=== PATIENT | female | born 1950 | race Caucasian/White ===

== ENCOUNTER → 2017-06-11 08:55 | Outpatient (CLI) | payer MEDICARE, SELFPAY | PROVIDERS: Visit Provider Family Medicine Geriatric Medicine | DX: I10 Essential (primary) hypertension (principal); E55.9 Vitamin D deficiency, unspecified ==

== ENCOUNTER → 2019-02-15 09:41 | Outpatient (CLI) | payer MEDICARE, SELFPAY ==
--- NOTE | 2019-02-15 09:55 | RAD_ITS ---
STUDY: X-RAY - LEFT KNEE REASON FOR EXAM: Chronic knee pain. TECHNIQUE: 4 view(s) of the knee. COMPARISON: None. FINDINGS: Normal visualized distal femur. Normal visualized proximal tibia and fibula. Normal proximal tibiofibular articulation. Normal medial femorotibial compartment. Normal lateral femorotibial compartment. Normal patellofemoral articulation. There is vascular calcification. RAD/Knee 4 or More Views IMPRESSION: Vascular calcification. Otherwise, unremarkable x-ray examination of the left knee. Electronically Signed: Bahman Gupta MD at 15:50 EST Tel , Service support ,
== END ==
PROVIDERS: Family Provider Family Medicine Geriatric Medicine; PCP Family Medicine Geriatric Medicine; Referring Provider Family Medicine Geriatric Medicine; Visit Provider Family Medicine Geriatric Medicine
DX: M25.562 Pain in left knee (principal); G89.29 Other chronic pain; N39.0 Urinary tract infection, site not specified
CPT/HCPCS: 73564; 87086; 87088

== ENCOUNTER → 2019-02-20 15:42 | Outpatient (CLI) | payer MEDICARE, SELFPAY ==
--- NOTE | 2019-02-20 15:43 | RAD_ITS ---
STUDY: X-RAY - RIGHT WRIST REASON FOR EXAM: Female, 68 years old. Pain. Fall TECHNIQUE: 3 view(s) of the wrist were obtained. COMPARISON: None. FINDINGS: Normal visualized distal radius and ulna. Normal radiocarpal articulation. Normal distal radioulnar articulation. There is density at the posterior aspect on the lateral projection consistent with nondisplaced fracture of the triquetrum. Normal carpal articulations. Normal carpometacarpal articulation of the thumb. Normal second through fifth carpometacarpal articulations. Normal visualized metacarpal bones. The soft tissue structures are unremarkable. RAD/Wrist min 3 Views IMPRESSION: Nondisplaced fracture of the triquetrum. Electronically Signed: Jer Michele MD at 16:23 EST , Service support ,
--- NOTE | 2019-02-20 15:43 | RAD_ITS ---
STUDY: X-RAY - RIGHT HAND REASON FOR EXAM: Female, 68 years old. Pain. Fall. TECHNIQUE: 3 view(s) of the hand. COMPARISON: None. FINDINGS: Normal radiocarpal articulation. Normal distal radioulnar joint. There is density at the posterior aspect on the lateral projection consistent with nondisplaced fracture of the triquetrum. Normal carpal articulations Normal carpometacarpal articulation of the thumb. Normal second through fifth carpometacarpal joints. Normal metacarpi. Normal metacarpophalangeal joint of the thumb. Normal interphalangeal joint of the thumb. Normal proximal and distal phalanges of the thumb. Normal metacarpophalangeal joints of the second through fifth fingers. There is mild degenerative change of the interphalangeal joints. There is a 0.7 x 0.3 cm focal lucency of the cortex and partial destruction of the second proximal phalanx on the frontal projection. The soft tissue structures are unremarkable. RAD/Hand Min 3 Views IMPRESSION: Density consistent with nondisplaced fracture of the triquetrum. Partial cortical destruction of the second proximal phalanx of uncertain significance. Electronically Signed: Jer Michele MD at 16:22 EST , Service support ,
== END ==
PROVIDERS: Family Provider Family Medicine Geriatric Medicine; PCP Family Medicine Geriatric Medicine; Referring Provider Physician Assistant; Visit Provider Physician Assistant
DX: S62.114A Nondisplaced fracture of triquetrum [cuneiform] bone, right wrist, initial encounter for closed fracture (principal); X58.XXXA Exposure to other specified factors, initial encounter; Y93.9 Activity, unspecified; Y92.9 Unspecified place or not applicable; Y99.9 Unspecified external cause status
CPT/HCPCS: 73110; 73130

== ENCOUNTER → 2019-03-27 08:38 | Outpatient (CLI) | payer OTHER, MEDICARE, SELFPAY ==
[2019-02-24 08:30] VITALS: BMI 28.4
--- NOTE | 2019-03-27 08:39 | RAD_ITS ---
HISTORY: FOLLOW UP TO PREVIOUS VISITS COMPARISON: None FINDINGS: # of images incl. paperwork: 3 XR Wrist Min 3 Views : Hyperostosis on the dorsal aspect of the triquetrum in the region where the fracture was previously is suggestive of healing. Bone mineral density may be diminished. Bony alignment is normal. No acute fractures are perceived. A phlebolith within the lateral wrist is unchanged. RAD/Wrist min 3 Views IMPRESSION: Healing versus healed triquetral fracture at [id number] Reported and signed by: Rogelio Shepherd MD Electronically Signed: Rogelio Shepherd MD at 23:36 EST Tel , Service support ,
== END ==
PROVIDERS: Family Provider Family Medicine Geriatric Medicine; PCP Family Medicine Geriatric Medicine; Referring Provider Orthopaedic Surgery; Visit Provider Orthopaedic Surgery
DX: S62.111A Displaced fracture of triquetrum [cuneiform] bone, right wrist, initial encounter for closed fracture (principal); X58.XXXA Exposure to other specified factors, initial encounter; Y93.9 Activity, unspecified; Y92.9 Unspecified place or not applicable; Y99.9 Unspecified external cause status
CPT/HCPCS: 73110

== ENCOUNTER 2019-06-22 14:42 | Outpatient (RCR) | payer MEDICARE, SELFPAY ==
[2019-03-27 08:51] VITALS: BMI 28.4
--- NOTE | 2019-11-15 13:52 | HP.PT.NRP ---
OSMIN DAN was seen in my office for initial evaluation on 06/22/19. The following Plan of Care was established for this patient: Initial Frequency: 2x /Week Initial Duration: 4 Weeks Patient/Client Instruction: Educate patient on: Condition, Plan of Care For the Purpose of:: To improve self management Therapeutic Exercise to Include: Strength training, Endurance training, Balance training, Postural training, Flexibilty training, Dynamic Lumbar Stabilization For the Purpose of:: To decrease pain, To improve muscle performance and motor function Cryotherapy (ice pack, ice massage): Yes For the Purpose of:: To decrease pain This patient was last seen in our office . Pertinent comments regarding their Physical therapy will appear below: Pt was evaluated on 06/22/19 for L knee pain. Pt has not returned through todays date and is therefore discontinued at this time. At this point I will be discontinuing this patient from physical therapy. I would be happy to see this patient again in the future if found appropriate by the physician. Thank you! Aureliano Jackson, PT, ATC
--- NOTE | 2019-11-15 13:52 | HP.PTEVAL ---
Patient's Visit Information OSMIN DAN is a 68 year old F referred to Physical Therapy by Dr. Walter Emanuel MD with a diagnosis of L knee OA. Date of Evaluation: 06/22/19 Physical Therapist: Aureliano Jackson, PT, ATC - Visit Plan Frequency: 2x /Week Duration: 4 Weeks Plan: L LE strengthening, core strengthening, bike, and HEP - Subjective Pt reports her L knee has been sore for over a year. Pt notes she has had xrays which revealed osteoarthritis. Pt reports she had a cortisone injection 2 days ago, which did help a very little bit. Pt reports the pain is not as bad today, but the pain is still there. Pt reports sleep difficulty secondary to pain. Pt pain is constant in nature. Pt reports stair negotiation is very difficult at this time. Pt also notes she is limited with ambulation at this time secondary to pain. Pt reports she has a stationary bike that helps to decrease her pain. No tingling or numbness in L LE at this time. 7/10 at rest, 10/10 pain at worst (stair negotiation prior to injection) - Pain L knee OA Pain Intensity (Out of 10): 7 Pain Intensity Range: 10 - Objective Neuro: B LE sensation is WNL to light touch. B achilles reflex= 2/3. Girth at joint line: L knee 36 cm, R knee 34 cm. MMT: R knee 5/5 throughout while L knee 4-/5 and painful. ROM: R knee 0-135 degrees, L knee 0-125 degrees. Special tests: Positive apley compression test. Gait: Pt is able to ambulate approximately 200 feet until needing to sit down secondary to pain - Goals Goal 1:: Decrease L knee pain x 50% to aid with sleep Goal Time Frame: 2-4 Weeks Goal 2:: Increase L knee strength x 1 garde to aid with stair negotiation Goal Time Frame: 2-4 Weeks Goal 3:: I with HEP Goal Time Frame: 2-4 Weeks - Rehabilitation Potential Physical Therapy Diagnosis: Pt has L knee pain, weakness, and limited ROM secondary to L knee OA Rehabilitation Potential: Good - Anticipated Interventions Patient/Client Instruction: Educate patient on: Condition, Plan of Care For the Purpose of:: To improve self management Therapeutic Exercise to Include: Strength training, Endurance training, Balance training, Postural training, Flexibilty training, Dynamic Lumbar Stabilization For the Purpose of:: To decrease pain, To improve muscle performance and motor function Cryotherapy (ice pack, ice massage): Yes For the Purpose of:: To decrease pain Thank you for the opportunity to evaluate your patient. For Medicare and Medicare HMO plans, please review the plan of care and approve it. It will need to be FAXED BACK to us at [phone] for Medicare purposes. For Medicare only, by signing this I certify the plan of care. Please let me know if there are questions or concerns regarding this plan of care. Physician Signature: Date:
== END 2019-06-22 19:00 | disposition home or self-care (01) ==
LOC: PT 14:42
PROVIDERS: PCP Family Medicine Geriatric Medicine; Referring Provider Family Medicine Geriatric Medicine; Visit Provider Family Medicine Geriatric Medicine
DX: M17.9 Osteoarthritis of knee, unspecified (principal)
CPT/HCPCS: 97161

== ENCOUNTER → 2019-10-05 10:56 | Outpatient (CLI) | payer MEDICARE, SELFPAY ==
[2019-03-27 08:51] VITALS: BMI 28.4
--- NOTE | 2019-10-05 11:06 | RAD_ITS ---
STUDY: X-RAY - LEFT FOOT CLINICAL: Female, 68 years old. REDNESS AND SWELLING TO 1ST DIGIT x2 DAYS, NKI -- GOUT TECHNIQUE: 2 view(s) of the foot. COMPARISON: None. FINDINGS: Normal talus and tarsal bones. Calcaneal spurs. Normal visualized subtalar, talonavicular, calcaneocuboid, tarsal and tarsometatarsal articulations. Normal metatarsi. Lateral film shows dislocation of the second MTP joint with dorsal displacement of the phalanges relative to the distal second metatarsal. There is degenerative arthrosis of the metatarsophalangeal joint of the hallux with a hallux valgus deformity. Normal tibial and fibular sesamoid bones. Normal interphalangeal joint of the great toe. Normal phalanges of the great toe. Normal second through fifth metatarsophalangeal joints. Normal remaining interphalangeal joints and phalanges of the lesser toes. The soft tissue structures are unremarkable. RAD/Foot 2 Views IMPRESSION: There is dorsal dislocation of the phalanges of the second toe relative to the second metatarsal head with approximately 5 mm of overlap. Hallux valgus deformity of the first MTP joint Calcaneal spurs Electronically Signed: William Wright MD at 11:24 EDT , Service support ,
[2019-10-05 12:39] LABS: Erythrocyte Sedimentation Rate 65 mm/hr (0-30)
[2019-10-05 12:41] LABS: Absolute Lymphocyte Count 1.76 X10^3/uL (0.83-4.51); Absolute Neutrophil Count 7.1 X10^3/uL (2.0-7.7); Basophil# 0.08 X10^3/uL; Basophil% 0.8 % (0-1); Eosinophil# 0.18 X10^3/uL; Eosinophils% 1.7 % (0-5); Hematocrit 40.1 % (37-47); Lymphocyte # 1.76 X10^3/ul (4.0); Mean Corp Hgb Conc 32.4 g/dL (32-36); Mean Corpuscular Hgb 30.7 pg (27.0-32.0); Mean Corpuscular Volume 94.8 fL (81-99); Mean Platelet Vol. 9.8 fl (6.2-12.0); Monocyte# 1.08 X10^3/uL; Monocyte% 10.4 % (0-10); NRBC Flagged by Analyzer 0 % (0-5); Neutrophil # 7.08 X10^3/uL (2.7-7.7); Neutrophil % 68.4 % (47-70); Platelet Count 372 K/mm3 (150-450); RBC Distribution Width CV 12.5 % (11.6-14.6); RBC Distribution Width SD 43.1 fl (35.1-43.9); Red Blood Count 4.23 M/mm3 (4.2-5.4); White Blood Count 10.4 K/mm3 (4.4-11.0)
[2019-10-05 12:45] LABS: Anion Gap 5 (5-15); BUN 16 mg/dL (7-18); BUN/Creat Ratio 19.3 RATIO (10-20); Calcium,Total 9.6 mg/dL (8.5-10.1); Chloride 102 mmol/L (98-107); Creatinine, Serum 0.83 mg/dL (0.55-1.02); EST Glomerular Filtration Rate 73 mL/min (>60); Est Glom Filt Rate - Afr Amer 88 mL/min (>60); Glucose 97 mg/dL (74-106); Sodium Level 136 mmol/L (136-145); Uric Acid 7.5 mg/dL (2.6-6.0)
== END ==
LOC: POLAB3 10:56 → RAD 11:05
PROVIDERS: PCP Family Medicine Geriatric Medicine; Referring Provider Family Medicine Geriatric Medicine; Visit Provider Family Medicine Geriatric Medicine
DX: R60.9 Edema, unspecified (principal); R79.9 Abnormal finding of blood chemistry, unspecified
CPT/HCPCS: 36415; 73620; 80048; 84550; 85025; 85652; 86140

== ENCOUNTER → 2019-12-28 10:50 | Outpatient (CLI) | payer MEDICARE, SELFPAY ==
[2019-03-27 08:51] VITALS: BMI 28.4
[2019-12-28 12:42] LABS: Absolute Lymphocyte Count 1.41 X10^3/uL (0.83-4.51); Absolute Neutrophil Count 7.7 X10^3/uL (2.0-7.7); Basophil# 0.06 X10^3/uL; Basophil% 0.6 % (0-1); Hematocrit 40.6 % (37-47); Hemoglobin 12.8 g/dL (12.0-15.0); Lymphocyte # 1.41 X10^3/ul (4.0); Lymphocyte % 13.6 % (19-41); Mean Corp Hgb Conc 31.5 g/dL (32-36); Mean Corpuscular Hgb 30.2 pg (27.0-32.0); Mean Corpuscular Volume 95.8 fL (81-99); Mean Platelet Vol. 9.8 fl (6.2-12.0); Monocyte# 0.79 X10^3/uL; Monocyte% 7.6 % (0-10); NRBC Flagged by Analyzer 0 % (0-5); Neutrophil # 7.71 X10^3/uL (2.7-7.7); Neutrophil % 74.7 % (47-70); Platelet Count 345 K/mm3 (150-450); RBC Distribution Width CV 13.3 % (11.6-14.6); RBC Distribution Width SD 47.3 fl (35.1-43.9); Red Blood Count 4.24 M/mm3 (4.2-5.4); White Blood Count 10.3 K/mm3 (4.4-11.0)
[2019-12-28 12:47] LABS: Vitamin D,25 Hydroxy 20.5 ng/mL
[2019-12-28 13:02] LABS: ALB/GLOB Ratio 0.9 RATIO (0.9-2.4); AST(SGOT) 24 U/L (15-37); Alanine Aminotransfer ALT/SGPT 44 U/L (13-56); Albumin, Serum 3.5 g/dL (3.2-5.0); Alkaline Phosphatase 122 U/L (45-117); Anion Gap 8 (5-15); BUN 20 mg/dL (7-18); BUN/Creat Ratio 21.3 RATIO (10-20); Calcium,Total 8.9 mg/dL (8.5-10.1); Chloride 101 mmol/L (98-107); Cholesterol 217 mg/dL (200); Creatinine, Serum 0.94 mg/dL (0.55-1.02); EST Glomerular Filtration Rate 63 mL/min (>60); Est Glom Filt Rate - Afr Amer 76 mL/min (>60); Glucose 103 mg/dL (74-106); High Density Lipoprotein 50 mg/dL; Potassium 4.1 mmol/L (3.5-5.1); Protein, Total 7.5 g/dL (6.4-8.2); Sodium Level 137 mmol/L (136-145); Thyroid Stim Hormone (TSH) 0.96 uIU/mL (0.358-3.74); Triglycerides 604 mg/dL
== END ==
PROVIDERS: PCP Family Medicine Geriatric Medicine; Visit Provider Family Medicine Geriatric Medicine
DX: I10 Essential (primary) hypertension (principal); E78.5 Hyperlipidemia, unspecified; E55.9 Vitamin D deficiency, unspecified
CPT/HCPCS: 36415; 80053; 80061; 82306; 84443; 85025

== ENCOUNTER → 2020-02-13 06:37 | Outpatient (CLI) | payer MEDICARE, SELFPAY ==
--- NOTE | 2020-02-13 06:38 | MRI_ITS ---
STUDY: MRI LEFT KNEE REASON FOR EXAM: Medial left knee pain for 3 years, no specific injury. TECHNIQUE: Standardized fat and water weighted pulse sequences were obtained in all 3 orthogonal planes. COMPARISON: Radiographs 01/31/2020. FINDINGS: Normal medial meniscus. Normal hyaline cartilage of the medial femorotibial compartment. Normal medial femoral condyle and tibial plateau. Normal medial collateral ligamentous complex (MCL). Normal distal semimembranosus, gracilis and semitendinosus tendons. Normal lateral meniscus. Normal hyaline cartilage of the lateral femorotibial compartment. Normal lateral femoral condyle and tibial plateau. Normal proximal tibiofibular articulation. Normal lateral collateral (fibular) ligament. Normal popliteus tendon. Normal biceps femoris tendon. Normal anterior cruciate ligament (ACL). Normal posterior cruciate ligament (PCL). Normal congruent patellofemoral articulation. There is intermediate grade chondromalacia of the medial patellar facet (T2 sagittal image 12). Normal medial and lateral patellar retinaculum. Normal quadriceps tendon. Normal patellar tendon. Normal Hoffa''s fat pad. There is a very small joint effusion. There is a thin medial patellar plica. There is a small popliteal cyst (T2 sagittal images 6-10). The otherwise visualized osseous structures are unremarkable. MRI/Lower Ext Joint Only (Routine) IMPRESSION: Chondromalacia patellae. Very small joint effusion. Small popliteal cyst. No demonstrated medial meniscal tear. Electronically Signed: Bahman Gupta MD at 8:29 EST Tel , Service support ,
== END ==
PROVIDERS: PCP Family Medicine Geriatric Medicine; Referring Provider Orthopaedic Surgery; Visit Provider Orthopaedic Surgery
DX: S83.242A Other tear of medial meniscus, current injury, left knee, initial encounter (principal)
CPT/HCPCS: 73721

== ENCOUNTER → 2020-03-19 16:10 | Outpatient (CLI) | payer MEDICARE, SELFPAY ==
[2020-03-19 17:22] LABS: Absolute Lymphocyte Count 2.06 X10^3/uL (0.83-4.51); Absolute Neutrophil Count 8.4 X10^3/uL (2.0-7.7); Basophil# 0.12 X10^3/uL; Eosinophil# 0.12 X10^3/uL; Hematocrit 43.5 % (37-47); Hemoglobin 13.9 g/dL (12.0-15.0); Lymphocyte # 2.06 X10^3/ul (4.0); Lymphocyte % 17.3 % (19-41); Mean Corpuscular Hgb 30.8 pg (27.0-32.0); Mean Corpuscular Volume 96.2 fL (81-99); Mean Platelet Vol. 9.6 fl (6.2-12.0); Monocyte# 0.71 X10^3/uL; NRBC Flagged by Analyzer 0 % (0-5); Neutrophil # 8.38 X10^3/uL (2.7-7.7); Neutrophil % 70.6 % (47-70); Platelet Count 389 K/mm3 (150-450); RBC Distribution Width CV 13.1 % (11.6-14.6); RBC Distribution Width SD 46.2 fl (35.1-43.9); Red Blood Count 4.52 M/mm3 (4.2-5.4); White Blood Count 11.9 K/mm3 (4.4-11.0)
[2020-03-19 17:25] LABS: Erythrocyte Sedimentation Rate 15 mm/hr (0-30)
[2020-03-19 17:51] LABS: D-Dimer Quantitative (DVT/PE) 0.55 FEU/ug/m (0.27-0.49)
[2020-03-19 17:58] LABS: ALB/GLOB Ratio 0.9 RATIO (0.9-2.4); AST(SGOT) 19 U/L (15-37); Alanine Aminotransfer ALT/SGPT 40 U/L (13-56); Albumin, Serum 3.8 g/dL (3.2-5.0); Alkaline Phosphatase 114 U/L (45-117); Anion Gap 8 (5-15); BUN 24 mg/dL (7-18); BUN/Creat Ratio 25.4 RATIO (10-20); Calcium,Total 9.7 mg/dL (8.5-10.1); Chloride 98 mmol/L (98-107); Creatinine, Serum 0.95 mg/dL (0.55-1.02); EST Glomerular Filtration Rate 62 mL/min (>60); Est Glom Filt Rate - Afr Amer 75 mL/min (>60); Globulin 4.2 g/dL (2.2-4.2); Glucose 90 mg/dL (74-106); Potassium 3.6 mmol/L (3.5-5.1); Sodium Level 136 mmol/L (136-145)
== END ==
PROVIDERS: PCP Family Medicine Geriatric Medicine; Visit Provider Family Medicine Geriatric Medicine
DX: R21 Rash and other nonspecific skin eruption (principal); R06.02 Shortness of breath
CPT/HCPCS: 36415; 80053; 83880; 85025; 85379; 85652; 86141

== ENCOUNTER → 2020-03-27 13:51 | Outpatient (CLI) | payer MEDICARE, SELFPAY ==
[2020-03-27 17:06] LABS: T3 Uptake 38 % (30-39); T4 Free Direct 0.99 ng/dL (0.76-1.46); Thyroid Stim Hormone (TSH) 0.79 uIU/mL (0.358-3.74)
[2020-03-27 17:21] LABS: T7 / Free Thyroxin Index 0.4 (1.4-4.5)
== END ==
PROVIDERS: PCP Family Medicine Geriatric Medicine; Visit Provider Family Medicine Geriatric Medicine
DX: R22.0 Localized swelling, mass and lump, head (principal); E03.9 Hypothyroidism, unspecified
CPT/HCPCS: 36415; 84439; 84443; 84479

== ENCOUNTER → 2020-03-29 07:13 | Outpatient (CLI) | payer MEDICARE, SELFPAY ==
--- NOTE | 2020-03-29 07:14 | CT_ITS ---
STUDY: CT SOFT TISSUE NECK WITH CONTRAST REASON FOR EXAM: Female, 69 years old. NECK/FACIAL SWELLING X 1 MONTH, HX LEFT BREAST CANCER W/ MASTECTOMY RADIATION DOSAGE (If Supplied By Facility): CTDIvol = ( 14.05 ) mGy, DLP = ( 412.12 ) mGycm TECHNIQUE: The patient was scanned in a multi-detector CT scanner. High resolution transaxial imaging was performed following intravenous administration of IV 100ML ISOVUE 370. Sagittal and coronal images were reconstructed. Individualized dose optimization techniques were used for this CT. COMPARISON: None. FINDINGS: Normal bilateral parotid glands. Normal bilateral tailer in spaces. Normal bilateral parapharyngeal spaces. Normal bilateral carotid spaces. Normal bilateral sublingual and submandibular glands and spaces. Normal visualized nasopharynx. Normal retropharyngeal space. Normal perivertebral space. Normal visualized bilateral faucial tonsils. The visualized tongue, tongue base and oropharynx are normal. The visualized cervical lymph nodes (levels I-) are within normal size limits, and maintain normal morphology. There is no demonstrated solid or cystic mass lesion. There is no abnormal contrast enhancement. Normal epiglottis, bilateral vallecula and hypopharynx. The pre-epiglottic and paraglottic adipose spaces are normal. Normal visualized bilateral piriform sinuses, aryepiglottic folds, vocal cords, and arytenoid-cricoid articulations. Normal subglottic trachea. Normal bilateral lobes of the thyroid gland. Normal visualized pulmonary apices. Normal visualized paranasal sinuses. There is multilevel degenerative changes of the cervical spine. CT/Soft Tissue Neck WITH Contrast IMPRESSION: Normal enhanced CT examination of the soft tissues of the neck. Electronically Signed: Joseph Ott, at 9:23 EST , Service support ,
== END ==
PROVIDERS: PCP Family Medicine Geriatric Medicine; Referring Provider Family Medicine Geriatric Medicine; Visit Provider Family Medicine Geriatric Medicine
DX: R22.0 Localized swelling, mass and lump, head (principal)
CPT/HCPCS: 70491; Q9967

== ENCOUNTER → 2020-04-18 11:13 | Outpatient (CLI) | payer MEDICARE, SELFPAY ==
[2020-04-18 12:41] LABS: Rheumatoid Factor < 10.0 IU/mL (<15)
[2020-04-19 15:56] LABS: ANTINUCLEAR ANTIBODIES DIRECT Negative (Negative)
[2020-04-22 21:44] LABS: C1 EST Inhibitor, Functional 99 (.)
== END ==
PROVIDERS: PCP Family Medicine Geriatric Medicine; Referring Provider Specialist; Visit Provider Specialist
DX: T78.3XXD Angioneurotic edema, subsequent encounter (principal)
CPT/HCPCS: 36415; 83520; 86038; 86160; 86161; 86431

== ENCOUNTER → 2020-04-29 14:55 | Outpatient (CLI) | payer MEDICARE, SELFPAY ==
--- NOTE | 2020-04-29 14:58 | CT_ITS ---
STUDY: CT CHEST WITH CONTRAST REASON FOR EXAM: Female, 69 years old. ACUTE EMBOLISM/THROMBOSIS OF OTHER THORACIC VEINS. PT STATES SHE HAS BEEN SWOLLEN SINCE FEBRUARY RADIATION DOSAGE (If Supplied By Facility): CTDIvol = ( 19.36 ) mGy, DLP = ( 544.81 ) mGycm TECHNIQUE: Transaxial imaging was performed following intravenous administration of IV 100mL Isovue-370. Multiplanar coronal and sagittal images were reformatted. Individualized dose optimization techniques were used for this CT. COMPARISON: None. FINDINGS: There is a 1.5 cm x 1 cm hypodense nodule in the upper medial aspect of the right lobe of the thyroid. Focal area of airspace disease in the peripheral posterior lateral aspect of the lingular segment of the left upper lobe. There is blunting of the left cardiac phrenic angle at that site. This most likely represents an area of scarring. There are calcifications of the coronary arteries. Normal mediastinum. Normal hilar regions. Normal enhanced pulmonary arteries. There is atherosclerotic calcification of the aortic arch . There are degenerative changes of the thoracic spine. There is no demonstrated abnormality of the visualized upper abdomen. CT/Chest WITH Contrast IMPRESSION: Findings suggestive of scarring in the lingular segment of the left upper lobe with blunting of the left costophrenic angle. Electronically Signed: Joseph Ott MD at 15:58 EST , Service support ,
== END ==
PROVIDERS: PCP Family Medicine Geriatric Medicine; Referring Provider Family Medicine Geriatric Medicine; Visit Provider Family Medicine Geriatric Medicine
DX: I82.290 Acute embolism and thrombosis of other thoracic veins (principal)
CPT/HCPCS: 71260; Q9967

== ENCOUNTER → 2020-05-08 10:00 | Outpatient (CLI) | payer MEDICARE, SELFPAY ==
--- NOTE | 2020-05-08 10:08 | US_ITS ---
STUDY: THYROID ULTRASOUND REASON FOR EXAM: Female, 69 years old. GOITER TECHNIQUE: Ultrasound evaluation of the thyroid was performed with real-time and static rider-scale imaging. COMPARISON: None. FINDINGS: RIGHT LOBE: The right lobe of the thyroid gland measures 3.9 cm x 1.3 cm x 1.3 cm. There is a homogeneous echotexture. There are no demonstrated solid, cystic or complex lesions. LEFT LOBE: The left lobe of the thyroid gland measures 3.7 cm x 1.7 cm x 1.2 cm. There is a homogeneous echotexture. There are no demonstrated solid, cystic or complex lesions. ISTHMUS: The isthmus measures 4 mm. The regional lymph nodes are normal. US/Thyroid IMPRESSION: Normal ultrasound examination of the thyroid. Electronically Signed: Joseph Ott MD at 15:02 EST , Service support ,
== END ==
PROVIDERS: PCP Family Medicine Geriatric Medicine; Referring Provider Family Medicine Geriatric Medicine; Visit Provider Family Medicine Geriatric Medicine
DX: E04.2 Nontoxic multinodular goiter (principal)
CPT/HCPCS: 76536

== ENCOUNTER → 2020-05-10 | Outpatient (CLI) | payer MEDICARE, SELFPAY ==
[2020-05-10 16:59] LABS: Erythrocyte Sedimentation Rate 19 mm/hr (0-30)
[2020-05-10 17:16] LABS: Rheumatoid Factor < 10.0 IU/mL (<15)
[2020-05-13 16:24] LABS: ANTINUCLEAR ANTIBODIES DIRECT Negative (Negative)
[2020-05-15 04:11] LABS: Lyme IgG P18 Ab Absent (.); Lyme IgG P23 Ab Absent (.); Lyme IgG P28 Ab Absent (.); Lyme IgG P30 Ab Absent (.); Lyme IgG P39 Ab Absent (.); Lyme IgG P41 Ab Absent (.); Lyme IgG P45 Ab Absent (.); Lyme IgG P58 Ab Absent (.); Lyme IgG P66 Ab Absent (.); Lyme IgG P93 Ab Absent (.); Lyme IgM P23 Ab Absent (.); Lyme IgM P39 Ab Absent (.); Lyme IgM P41 Ab Absent (.)
[2020-05-15 12:53] LABS: Lyme IgG WB Interpretation Negative (.); Lyme IgM WB Interpretation Negative (.)
== END | disposition home or self-care (01) ==
LOC: LABSPEC 16:17
PROVIDERS: PCP Family Medicine Geriatric Medicine; Referring Provider Otolaryngology; Visit Provider Otolaryngology
DX: R60.9 Edema, unspecified (principal)
CPT/HCPCS: 36415; 85652; 86038; 86140; 86225; 86235; 86431; 86617

== ENCOUNTER 2020-05-23 07:03 | Outpatient (RCR) | payer MEDICARE, SELFPAY ==
[2020-05-23] MEDS: COVID-19 VACC, MRNA(PFIZER)/PF 30 MCG/0.3 ML SYRINGE IM (08:39)
[2020-06-13] MEDS: COVID-19 VACC, MRNA(PFIZER)/PF 30 MCG/0.3 ML SYRINGE IM (08:37)
== END 2020-08-20 23:59 ==
LOC: IMMUN 07:03
PROVIDERS: PCP Family Medicine Geriatric Medicine; Visit Provider Family Medicine
DX: Z23 Encounter for immunization (principal)
CPT/HCPCS: 0001A; 0002A; 91300

== ENCOUNTER → 2020-06-17 14:33 | Outpatient (CLI) | payer MEDICARE, SELFPAY ==
[2020-06-17 15:40] LABS: EXAGEN MAILED SPECIMEN
[2020-06-17 17:47] LABS: Color, Urine Yellow (Yellow); Glucose, Dipstick Normal (Normal); Ketone-Dipstick Negative (Negative); Leukocyte Esterase-Dipstick 25 /ul (Negative); Nitrite-Dipstick Negative (Negative); Occult Blood-Urine 10 /ul (Negative); Protein-Dipstick Negative (Negative); Urine Bilirubin Dipstick Negative (Negative); Urine Clarity Clear (Clear); Urine Urobilinogen Normal (Normal)
[2020-06-17 17:52] LABS: Absolute Lymphocyte Count 1.86 X10^3/uL (0.83-4.51); Absolute Neutrophil Count 9.5 X10^3/uL (2.0-7.7); Basophil# 0.11 X10^3/uL; Basophil% 0.9 % (0-1); Eosinophil# 0.16 X10^3/uL; Eosinophils% 1.3 % (0-5); Hematocrit 42.8 % (37-47); Hemoglobin 13.5 g/dL (12.0-15.0); Lymphocyte # 1.86 X10^3/ul (4.0); Lymphocyte % 14.8 % (19-41); Mean Corp Hgb Conc 31.5 g/dL (32-36); Mean Corpuscular Hgb 30.9 pg (27.0-32.0); Mean Corpuscular Volume 97.9 fL (81-99); Mean Platelet Vol. 10.3 fl (6.2-12.0); Monocyte% 5.6 % (0-10); NRBC Flagged by Analyzer 0 % (0-5); Neutrophil # 9.46 X10^3/uL (2.7-7.7); Neutrophil % 75.5 % (47-70); Platelet Count 378 K/mm3 (150-450); RBC Distribution Width CV 13.2 % (11.6-14.6); RBC Distribution Width SD 47.3 fl (35.1-43.9); Red Blood Count 4.37 M/mm3 (4.2-5.4); White Blood Count 12.5 K/mm3 (4.4-11.0)
[2020-06-17 17:55] LABS: AST(SGOT) 16 U/L (15-37); Alanine Aminotransfer ALT/SGPT 29 U/L (13-56); Alkaline Phosphatase 113 U/L (45-117); Anion Gap 7 (5-15); BUN 17 mg/dL (7-18); BUN/Creat Ratio 19.5 RATIO (10-20); Chloride 99 mmol/L (98-107); Creatinine, Serum 0.87 mg/dL (0.55-1.02); EST Glomerular Filtration Rate 68 mL/min (>60); Est Glom Filt Rate - Afr Amer 83 mL/min (>60); Globulin 3.9 g/dL (2.2-4.2); Glucose 95 mg/dL (74-106); Potassium 3.7 mmol/L (3.5-5.1); Protein, Total 7.9 g/dL (6.4-8.2); Sodium Level 137 mmol/L (136-145); Uric Acid 3.6 mg/dL (2.6-6.0)
[2020-06-17 17:56] LABS: Protein, Urine (Random) < 6.0 mg/dL (<11.9); Protein:Creat Ratio 225 mg/g CRE (0-200)
[2020-06-17 18:07] LABS: Erythrocyte Sedimentation Rate 10 mm/hr (0-30)
[2020-06-18 09:16] LABS: Hepatitis B Surface Antibody Non-Reactive; Hepatitis B Surface Antigen Non-Reactive (Nonreactive); Hepatitis C Antibody Non-Reactive (Nonreactive)
== END ==
PROVIDERS: PCP Family Medicine Geriatric Medicine; Visit Provider Internal Medicine Rheumatology
DX: M06.4 Inflammatory polyarthropathy (principal); R76.8 Other specified abnormal immunological findings in serum; M19.041 Primary osteoarthritis, right hand; M47.892 Other spondylosis, cervical region; M21.41 Flat foot [pes planus] (acquired), right foot; M21.42 Flat foot [pes planus] (acquired), left foot; R51.9 Headache, unspecified; I10 Essential (primary) hypertension; E78.5 Hyperlipidemia, unspecified; F32.9 Major depressive disorder, single episode, unspecified; Z85.3 Personal history of malignant neoplasm of breast
CPT/HCPCS: 36415; 80053; 81002; 82570; 84156; 84550; 85025; 85652; 86140; 86706; 86803; 87340

== ENCOUNTER → 2020-06-26 11:11 | Outpatient (CLI) | payer MEDICARE, SELFPAY ==
[2020-06-26 12:46] LABS: Absolute Lymphocyte Count 1.69 X10^3/uL (0.83-4.51); Basophil# 0.08 X10^3/uL; Basophil% 0.7 % (0-1); Eosinophil# 0.12 X10^3/uL; Hematocrit 41.1 % (37-47); Hemoglobin 12.6 g/dL (12.0-15.0); Lymphocyte # 1.69 X10^3/ul (0.83-4.51); Mean Corp Hgb Conc 30.7 g/dL (32-36); Mean Corpuscular Hgb 29.7 pg (27.0-32.0); Mean Corpuscular Volume 96.9 fL (81-99); Mean Platelet Vol. 10.2 fl (6.2-12.0); Monocyte# 0.87 X10^3/uL; Monocyte% 7.2 % (0-10); NRBC Flagged by Analyzer 0 % (0-5); Neutrophil # 9.03 X10^3/uL (2.7-7.7); Neutrophil % 74.5 % (47-70); Platelet Count 371 K/mm3 (150-450); RBC Distribution Width CV 13.4 % (11.6-14.6); RBC Distribution Width SD 47.8 fl (35.1-43.9); Red Blood Count 4.24 M/mm3 (4.2-5.4); White Blood Count 12.1 K/mm3 (4.4-11.0)
[2020-06-26 12:59] LABS: Vitamin D,25 Hydroxy 19.9 ng/mL
[2020-06-26 13:17] LABS: ALB/GLOB Ratio 0.9 RATIO (0.9-2.4); AST(SGOT) 17 U/L (15-37); Alanine Aminotransfer ALT/SGPT 30 U/L (13-56); Albumin, Serum 3.6 g/dL (3.2-5.0); Alkaline Phosphatase 106 U/L (45-117); Anion Gap 8 (5-15); BUN 19 mg/dL (7-18); BUN/Creat Ratio 21.4 RATIO (10-20); Calcium,Total 9.3 mg/dL (8.5-10.1); Chloride 100 mmol/L (98-107); Cholesterol 229 mg/dL (200); Creatinine, Serum 0.89 mg/dL (0.55-1.02); EST Glomerular Filtration Rate 67 mL/min (>60); Est Glom Filt Rate - Afr Amer 81 mL/min (>60); Globulin 3.8 g/dL (2.2-4.2); Glucose 94 mg/dL (74-106); High Density Lipoprotein 47 mg/dL; Potassium 3.7 mmol/L (3.5-5.1); Protein, Total 7.4 g/dL (6.4-8.2); Sodium Level 136 mmol/L (136-145); Thyroid Stim Hormone (TSH) 1.83 uIU/mL (0.358-3.74); Triglycerides 358 mg/dL; Very Low Density Lipoprotein 72 mg/dL (5-40)
== END ==
PROVIDERS: PCP Family Medicine Geriatric Medicine; Visit Provider Family Medicine Geriatric Medicine
DX: I10 Essential (primary) hypertension (principal); E78.5 Hyperlipidemia, unspecified; E55.9 Vitamin D deficiency, unspecified
CPT/HCPCS: 36415; 80053; 80061; 82306; 84443; 85025

== ENCOUNTER → 2020-07-12 07:56 | Outpatient (CLI) | payer MEDICARE, SELFPAY ==
--- NOTE | 2020-07-12 08:00 | CT_ITS ---
STUDY: CT BRAIN WITHOUT CONTRAST REASON FOR EXAM: Female, 69 years old. NEOPLASM OF PITUITARY GLAND RADIATION DOSAGE (If Supplied By Facility): CTDIvol = ( 44.99 ) mGy, DLP = ( 762.36 ) mGycm TECHNIQUE: Transaxial CT imaging of the brain was performed without administration of intravenous contrast material. Individualized dose optimization techniques were used for this CT. COMPARISON: No relevant priors. FINDINGS: Normal soft tissue structures. Normal calvarium. There is mild cerebral atrophy with widening of the extra-axial spaces and ventricular dilatation. Normal white matter tracts of the cerebral hemispheres. There are small punctate calcifications of the basal ganglia which are seen in the aging brain as a normal variant. Normal brainstem. Normal cerebellum. There is no intracranial hemorrhage. There are no findings of an acute ischemic infarction. Normal visualized paranasal sinuses. CT/Brain/Head without Contrast IMPRESSION: Chronic involutional changes of the brain. Electronically Signed: Joseph Ott MD at 9:26 EDT , Service support ,
--- NOTE | 2020-07-12 08:01 | CT_ITS ---
STUDY: CTA ABDOMEN AND PELVIS WITH CONTRAST REASON FOR EXAM: Female, 69 years old. Patient has a history of abdominal aortic aneurysm. RADIATION DOSAGE (If Supplied By Facility): CTDIvol = ( 24.70 ) mGy, DLP = ( 1017.37 ) mGycm TECHNIQUE: Transaxial images were obtained from the dome of the diaphragm to the symphysis pubis without oral contrast. IV 100mL Isovue-370 was administered. Sagittal and coronal images were reconstructed. Individualized dose optimization techniques were used for this CT. COMPARISON: None. FINDINGS: The visualized lung bases are unremarkable. Coronary artery calcification. Normal liver. Normal gallbladder and extrahepatic biliary system. Normal spleen. Normal pancreas. Normal bilateral adrenal glands. Normal right kidney. Normal left kidney. There is a small hiatal hernia. Normal small intestine. Normal colon. The appendix is visualized and appears normal. There is diffuse atherosclerotic calcification of the abdominal aorta and its major visceral branches. There is evidence of a fusiform infrarenal abdominal aortic aneurysm with a transverse dimension of 5.9 cm. Mural thrombus is seen. There is ectasia of the left common iliac artery with a transverse dimension of 2.1 cm. Normal inferior vena cava. Normal retroperitoneum. Normal urinary bladder. There is absence of the uterus consistent with a prior hysterectomy. Normal abdominal wall. There are diffuse degenerative changes of the visualized lumbar spine. CT/CT ANGIO ABD&PEL W/O&W/DYE IMPRESSION: Infrarenal abdominal aortic aneurysm with a transverse dimension of 5.9 cm. Mural thrombus is seen. Ectasia of the left common iliac artery. Electronically Signed: Joseph Ott MD at 10:41 EDT , Service support ,
== END ==
PROVIDERS: PCP Family Medicine Geriatric Medicine; Referring Provider Surgery Vascular Surgery; Visit Provider Surgery Vascular Surgery
DX: I71.4 Abdominal aortic aneurysm, without rupture (principal); D49.7 Neoplasm of unspecified behavior of endocrine glands and other parts of nervous system; I10 Essential (primary) hypertension; E78.00 Pure hypercholesterolemia, unspecified
CPT/HCPCS: 70450; 74174; Q9967

== ENCOUNTER → 2020-07-13 08:18 | Outpatient (CLI) | payer MEDICARE, SELFPAY ==
[2020-07-20 20:07] LABS: Cortisol, Urinary Free 1 ug/L (Undefined)
[2020-07-20 20:30] LABS: Cortisol, Free 24Ur 2 ug/24 hr (6-42)
== END ==
PROVIDERS: PCP Family Medicine Geriatric Medicine; Referring Provider Family Medicine Geriatric Medicine; Visit Provider Family Medicine Geriatric Medicine
DX: E24.9 Cushing's syndrome, unspecified (principal)
CPT/HCPCS: 81050; 82530

== ENCOUNTER → 2020-08-14 06:13 | Outpatient (CLI) | payer MEDICARE, SELFPAY ==
[2020-08-02 12:23] VITALS: BMI 31.0
--- NOTE | 2020-08-14 06:16 | ECHOCS_ITS ---
Reason For Study: CAD/ASHD Procedure This was a 2D Doppler, Color Flow transthoracic echocardiogram. The study was technically difficult. Due to body habitus. Contrast injection was performed. Exam performed in department. Left Ventricle Normal LV size. Left ventricular systolic function is normal. The estimated ejection fraction is 60 %. Stage 1 diastolic dysfunction. No regional wall motion abnormalities noted. Right Ventricle Normal RV size. Normal systolic function. Atria Normal left atrium. Normal right atrium. Mitral Valve Normal mitral valve. Tricuspid Valve Normal tricuspid valve. Aortic Valve The aortic valve is not well visualized. Pulmonic Valve The pulmonic valve is not well visualized. Great Vessels Normal aortic root. The pulmonary artery is normal size. Normal inferior vena cava. Pericardium/Pleural No pericardial effusion. Medication Diluted definity 3.0ml given slow IV push to enhance endocardial definition. MMode/2D Measurements & Calculations LVIDd: 4.7 cm IVSd: 1.1 cm Ao root diam: 2.9 cm LVIDs: 3.4 cm LVPWd: 1.0 cm RVDd: 2.8 cm FS: 26.5 % LAV(MOD-bp): 54.1 ml LA A4 area: 20.0 cm2 LA dimension(2D): 4.2 cm LAV(MOD-bp) Indexed: 28.9 ml/m2 LAV(MOD-sp2): 50.2 ml LAV(MOD-sp4): 57.0 ml RA A4 area: 14.5 cm2 Time Measurements MV dec time: 0.20 sec Doppler Measurements & Calculations MV E max darryl: 65.9 cm/sec Lat Peak E' Darryl: 7.7 cm/sec Med Peak E' Darryl: 6.7 cm/sec MV A max darryl: 79.0 cm/sec E/E' lat: 8.5 E/E' med: 9.8 MV E/A: 0.83 Ao V2 max: 126.1 cm/sec LV V1 max: 101.7 cm/sec PA V2 max: 105.0 cm/sec Ao max P.4 mmHg LV V1 max P.1 mmHg ECHO/Echo Complete W/ Contrast Interpretation Summary Normal LV size. Left ventricular systolic function is normal. The estimated ejection fraction is 60 %. Stage 1 diastolic dysfunction. Contrast injection was performed. Ordering Physician: Bertin Valentin Referring Physician: Bertin Valentin Performed By: Sherron Reid, JENIFER, RVT
--- NOTE | 2020-08-14 12:55 | STRESSREP ---
Stress Test Report Pharmacologic myocardial perfusion stress test. 69-year-old lady with a history of hypertension and abdominal aortic aneurysm for preoperative evaluation. Stress protocol: Resting EKG demonstrates normal sinus rhythm with a rate of 60 bpm poor R wave progression resting blood pressure is 1 and 38/70 8 mmHg. 0.4 mg of regadenoson was infused per usual protocol followed by rapid intravenous saline flush injection continuous EKG monitoring was performed. The maximum heart rate attained was 95 bpm which was 63% of maximum predicted heart rate the maximum workload was 1 metabolic equivalent. At rest there were no ST or T wave changes noted to suggest abnormal flow reserve and at peak infusion nonspecific ST changes were noted with did not meet the criteria for ischemia. The final blood pressure was 134/80 mmHg. Myocardial perfusion protocol. 11.9 mCi of technetium 99m sestamibi was injected at rest. 0.4 mg of regadenoson was infused per usual protocol. At peak infusion 32.7 mCi of technetium 99m sestamibi was injected stress images were obtained stress and rest images were reconstructed and compared in the short axis vertical long and horizontal long axis. Gated images were also obtained. Perfusion SPECT analysis: Review of the stress images demonstrate normal uptake of tracer noted in all areas of the myocardium. The resting images similarly demonstrate normal uptake of tracer noted in all areas of the myocardium. No areas of reversibility are noted to suggest ischemia and no previous infarct is noted. Gated SPECT analysis: The gated ejection fraction is 73%. Conclusion: Normal pharmacologic myocardial perfusion stress test. Preserved ejection fraction.
== END ==
PROVIDERS: PCP Family Medicine Geriatric Medicine; Referring Provider Internal Medicine Cardiovascular Disease; Visit Provider Internal Medicine Cardiovascular Disease
DX: I25.10 Atherosclerotic heart disease of native coronary artery without angina pectoris (principal); I71.4 Abdominal aortic aneurysm, without rupture
CPT/HCPCS: 78452; 93017; 93306; A9500; Q9957; A4216; C8929; J2785

== ENCOUNTER → 2020-08-30 11:51 | Outpatient (CLI) | payer MEDICARE, SELFPAY ==
[2020-08-02 12:23] VITALS: BMI 31.0
[2020-08-30 12:37] LABS: Absolute Lymphocyte Count 1.17 X10^3/uL (0.83-4.51); Absolute Neutrophil Count 9.6 X10^3/uL (2.0-7.7); Basophil# 0.06 X10^3/uL; Basophil% 0.5 % (0-1); Eosinophil# 0.19 X10^3/uL; Eosinophils% 1.5 % (0-5); Hematocrit 35.7 % (37-47); Hemoglobin 11.3 g/dL (12.0-15.0); Lymphocyte # 1.17 X10^3/ul (0.83-4.51); Lymphocyte % 9.4 % (19-41); Mean Corp Hgb Conc 31.7 g/dL (32-36); Mean Corpuscular Hgb 30.9 pg (27.0-32.0); Mean Corpuscular Volume 97.5 fL (81-99); Mean Platelet Vol. 9.6 fl (6.2-12.0); Monocyte# 1.12 X10^3/uL; NRBC Flagged by Analyzer 0 % (0-5); Neutrophil # 9.58 X10^3/uL (2.7-7.7); Neutrophil % 76.9 % (47-70); Platelet Count 305 K/mm3 (150-450); RBC Distribution Width CV 14.6 % (11.6-14.6); RBC Distribution Width SD 51.6 fl (35.1-43.9); Red Blood Count 3.66 M/mm3 (4.2-5.4); White Blood Count 12.5 K/mm3 (4.4-11.0)
[2020-08-30 13:30] LABS: ALB/GLOB Ratio 0.7 RATIO (0.9-2.4); AST(SGOT) 33 U/L (15-37); Alanine Aminotransfer ALT/SGPT 37 U/L (13-56); Albumin, Serum 3.1 g/dL (3.2-5.0); Alkaline Phosphatase 127 U/L (45-117); Anion Gap 6 (5-15); BUN 18 mg/dL (7-18); BUN/Creat Ratio 21.6 RATIO (10-20); Calcium,Total 10.3 mg/dL (8.5-10.1); Chloride 100 mmol/L (98-107); Creatinine, Serum 0.83 mg/dL (0.55-1.02); EST Glomerular Filtration Rate 72 mL/min (>60); Est Glom Filt Rate - Afr Amer 87 mL/min (>60); Globulin 4.4 g/dL (2.2-4.2); Glucose 109 mg/dL (74-106); Protein, Total 7.5 g/dL (6.4-8.2); Sodium Level 137 mmol/L (136-145)
== END ==
PROVIDERS: PCP Family Medicine Geriatric Medicine; Referring Provider Internal Medicine Rheumatology; Visit Provider Internal Medicine Rheumatology
DX: M06.4 Inflammatory polyarthropathy (principal); R76.8 Other specified abnormal immunological findings in serum; M19.041 Primary osteoarthritis, right hand; M47.892 Other spondylosis, cervical region; M21.42 Flat foot [pes planus] (acquired), left foot; M21.41 Flat foot [pes planus] (acquired), right foot; R51.9 Headache, unspecified; I10 Essential (primary) hypertension; F32.9 Major depressive disorder, single episode, unspecified; E78.5 Hyperlipidemia, unspecified; Z85.3 Personal history of malignant neoplasm of breast
CPT/HCPCS: 36415; 80053; 85025

== ENCOUNTER → 2020-10-28 15:17 | Outpatient (CLI) | payer MEDICARE, SELFPAY ==
[2020-08-02 12:23] VITALS: BMI 31.0
[2020-10-28 16:08] LABS: Absolute Lymphocyte Count 1.66 X10^3/uL (0.83-4.51); Basophil# 0.05 X10^3/uL; Basophil% 0.5 % (0-1); Eosinophil# 0.22 X10^3/uL; Hematocrit 38.4 % (37-47); Lymphocyte # 1.66 X10^3/ul (0.83-4.51); Lymphocyte % 15.2 % (19-41); Mean Corp Hgb Conc 31.3 g/dL (32-36); Mean Corpuscular Hgb 30.2 pg (27.0-32.0); Mean Corpuscular Volume 96.7 fL (81-99); Mean Platelet Vol. 9.8 fl (6.2-12.0); Monocyte# 0.87 X10^3/uL; NRBC Flagged by Analyzer 0 % (0-5); Neutrophil # 7.95 X10^3/uL (2.7-7.7); Neutrophil % 72.8 % (47-70); Platelet Count 329 K/mm3 (150-450); RBC Distribution Width CV 15.3 % (11.6-14.6); RBC Distribution Width SD 53.7 fl (35.1-43.9); Red Blood Count 3.97 M/mm3 (4.2-5.4); White Blood Count 10.9 K/mm3 (4.4-11.0)
[2020-10-28 16:35] LABS: ALB/GLOB Ratio 1.1 RATIO (0.9-2.4); AST(SGOT) 19 U/L (15-37); Alanine Aminotransfer ALT/SGPT 25 U/L (13-56); Albumin, Serum 3.7 g/dL (3.2-5.0); Alkaline Phosphatase 119 U/L (45-117); Anion Gap 5 (5-15); BUN 20 mg/dL (7-18); BUN/Creat Ratio 20.2 RATIO (10-20); Calcium,Total 8.9 mg/dL (8.5-10.1); Chloride 104 mmol/L (98-107); Creatinine, Serum 0.99 mg/dL (0.55-1.02); EST Glomerular Filtration Rate 59 mL/min (>60); Est Glom Filt Rate - Afr Amer 71 mL/min (>60); Globulin 3.4 g/dL (2.2-4.2); Glucose 102 mg/dL (74-106); Potassium 4.1 mmol/L (3.5-5.1); Protein, Total 7.1 g/dL (6.4-8.2); Sodium Level 138 mmol/L (136-145)
== END ==
PROVIDERS: PCP Family Medicine Geriatric Medicine; Referring Provider Internal Medicine Rheumatology; Visit Provider Internal Medicine Rheumatology
DX: M06.4 Inflammatory polyarthropathy (principal); M19.041 Primary osteoarthritis, right hand; M19.042 Primary osteoarthritis, left hand; M47.892 Other spondylosis, cervical region; M21.41 Flat foot [pes planus] (acquired), right foot; I10 Essential (primary) hypertension; F32.9 Major depressive disorder, single episode, unspecified; E78.5 Hyperlipidemia, unspecified; M21.42 Flat foot [pes planus] (acquired), left foot; R51.9 Headache, unspecified; R76.0 Raised antibody titer; Z79.899 Other long term (current) drug therapy; Z85.3 Personal history of malignant neoplasm of breast
CPT/HCPCS: 36415; 80053; 85025

== ENCOUNTER → 2020-12-04 | Outpatient (CLI) | payer MEDICARE, SELFPAY ==
[2020-12-04 19:32] LABS: M R Staph aureus DNA By PCR Negative (Negative); Probe Check PASS; Specimen Processing Control PASS; Staph aureus DNA By PCR POSITIVE (Negative)
== END | disposition home or self-care (01) ==
LOC: LABSPEC 12-05 08:08
PROVIDERS: Visit Provider Family Medicine Geriatric Medicine
DX: A49.02 Methicillin resistant Staphylococcus aureus infection, unspecified site (principal)
CPT/HCPCS: 87070; 87077; 87186; 87205; 87640

== ENCOUNTER → 2020-12-19 14:15 | Outpatient (CLI) | payer MEDICARE, SELFPAY ==
[2020-12-19 16:22] LABS: Absolute Lymphocyte Count 1.52 X10^3/uL (0.83-4.51); Absolute Neutrophil Count 8.4 X10^3/uL (2.0-7.7); Basophil# 0.04 X10^3/uL; Basophil% 0.4 % (0-1); Eosinophil# 0.16 X10^3/uL; Eosinophils% 1.5 % (0-5); Hematocrit 38.8 % (37-47); Hemoglobin 12.3 g/dL (12.0-15.0); Lymphocyte # 1.52 X10^3/ul (0.83-4.51); Lymphocyte % 14.5 % (19-41); Mean Corp Hgb Conc 31.7 g/dL (32-36); Mean Corpuscular Hgb 31.4 pg (27.0-32.0); Mean Platelet Vol. 9.8 fl (6.2-12.0); Monocyte# 0.33 X10^3/uL; Monocyte% 3.1 % (0-10); NRBC Flagged by Analyzer 0.2 % (0-5); Neutrophil # 8.36 X10^3/uL (2.7-7.7); Neutrophil % 79.5 % (47-70); Platelet Count 357 K/mm3 (150-450); RBC Distribution Width CV 15.7 % (11.6-14.6); RBC Distribution Width SD 56.1 fl (35.1-43.9); Red Blood Count 3.92 M/mm3 (4.2-5.4); White Blood Count 10.5 K/mm3 (4.4-11.0)
[2020-12-19 17:02] LABS: ALB/GLOB Ratio 0.8 RATIO (0.9-2.4); AST(SGOT) 18 U/L (15-37); Alanine Aminotransfer ALT/SGPT 30 U/L (13-56); Albumin, Serum 3.3 g/dL (3.2-5.0); Alkaline Phosphatase 121 U/L (45-117); Anion Gap 6 (5-15); BUN 15 mg/dL (7-18); Calcium,Total 9.2 mg/dL (8.5-10.1); Chloride 101 mmol/L (98-107); Creatinine, Serum 0.88 mg/dL (0.55-1.02); EST Glomerular Filtration Rate 67 mL/min (>60); Est Glom Filt Rate - Afr Amer 81 mL/min (>60); Globulin 3.9 g/dL (2.2-4.2); Glucose 92 mg/dL (74-106); Potassium 4.1 mmol/L (3.5-5.1); Protein, Total 7.2 g/dL (6.4-8.2); Sodium Level 138 mmol/L (136-145)
== END ==
LOC: LABSPEC 14:17 → LAB 14:19
PROVIDERS: PCP Family Medicine Geriatric Medicine; Visit Provider Internal Medicine Rheumatology
DX: M06.4 Inflammatory polyarthropathy (principal); R76.8 Other specified abnormal immunological findings in serum; M19.041 Primary osteoarthritis, right hand; M47.892 Other spondylosis, cervical region; M21.41 Flat foot [pes planus] (acquired), right foot; M21.42 Flat foot [pes planus] (acquired), left foot; I10 Essential (primary) hypertension; E78.5 Hyperlipidemia, unspecified; R51.9 Headache, unspecified; F32.A Depression, unspecified; Z85.3 Personal history of malignant neoplasm of breast
CPT/HCPCS: 36415; 80053; 85025

== ENCOUNTER → 2021-01-01 09:08 | Outpatient (CLI) | payer MEDICARE, SELFPAY ==
[2021-01-01 12:33] LABS: Absolute Lymphocyte Count 1.43 X10^3/uL (0.83-4.51); Absolute Neutrophil Count 7.6 X10^3/uL (2.0-7.7); Basophil# 0.06 X10^3/uL; Basophil% 0.6 % (0-1); Eosinophil# 0.21 X10^3/uL; Eosinophils% 2.1 % (0-5); Hematocrit 40.5 % (37-47); Hemoglobin 12.8 g/dL (12.0-15.0); Lymphocyte # 1.43 X10^3/ul (0.83-4.51); Lymphocyte % 14.2 % (19-41); Mean Corp Hgb Conc 31.6 g/dL (32-36); Mean Corpuscular Hgb 31.8 pg (27.0-32.0); Mean Corpuscular Volume 100.7 fL (81-99); Mean Platelet Vol. 9.8 fl (6.2-12.0); Monocyte# 0.53 X10^3/uL; Monocyte% 5.3 % (0-10); NRBC Flagged by Analyzer 0 % (0-5); Neutrophil # 7.64 X10^3/uL (2.7-7.7); Neutrophil % 76.1 % (47-70); Platelet Count 362 K/mm3 (150-450); RBC Distribution Width SD 58.3 fl (35.1-43.9); Red Blood Count 4.02 M/mm3 (4.2-5.4)
[2021-01-01 13:03] LABS: Vitamin D,25 Hydroxy 23.1 ng/mL
[2021-01-01 13:16] LABS: ALB/GLOB Ratio 0.9 RATIO (0.9-2.4); AST(SGOT) 28 U/L (15-37); Alanine Aminotransfer ALT/SGPT 43 U/L (13-56); Albumin, Serum 3.4 g/dL (3.2-5.0); Alkaline Phosphatase 130 U/L (45-117); Anion Gap 7 (5-15); BUN 19 mg/dL (7-18); BUN/Creat Ratio 20.6 RATIO (10-20); Calcium,Total 9.2 mg/dL (8.5-10.1); Chloride 104 mmol/L (98-107); Cholesterol 230 mg/dL (200); Creatinine, Serum 0.92 mg/dL (0.55-1.02); EST Glomerular Filtration Rate 64 mL/min (>60); Est Glom Filt Rate - Afr Amer 77 mL/min (>60); Globulin 3.9 g/dL (2.2-4.2); Glucose 117 mg/dL (74-106); High Density Lipoprotein 35 mg/dL; Potassium 4.1 mmol/L (3.5-5.1); Protein, Total 7.3 g/dL (6.4-8.2); Sodium Level 140 mmol/L (136-145); Thyroid Stim Hormone (TSH) 0.99 uIU/mL (0.358-3.74); Triglycerides 696 mg/dL; Uric Acid 4.8 mg/dL (2.6-6.0)
== END ==
PROVIDERS: PCP Family Medicine Geriatric Medicine; Visit Provider Family Medicine Geriatric Medicine
DX: I10 Essential (primary) hypertension (principal); E78.5 Hyperlipidemia, unspecified; M10.9 Gout, unspecified; E55.9 Vitamin D deficiency, unspecified
CPT/HCPCS: 36415; 80053; 80061; 82306; 84443; 84550; 85025

== ENCOUNTER → 2021-02-27 08:23 | Outpatient (CLI) | payer MEDICARE, SELFPAY ==
--- NOTE | 2021-02-27 08:28 | BD_ITS ---
STUDY: DUAL ENERGY X-RAY ABSORPTIOMETRY / DXA REASON FOR EXAM: Female, 70 years old. Z780 TECHNIQUE: Bone Mineral Density (BMD) measurements of lumbar spine and bilateral hips were obtained. COMPARISON: None. FINDINGS: Lumbar Spine (L1-L4): g/cm2 (0.871) / T-score (-1.0) / Z-score (1.1) Findings are suggestive of normal bone density with a low fracture risk. Left Femur Total: g/cm2 (0.884) / T-score (-0.5) / Z-score (1.1) Left Femoral Neck: g/cm2 (0.642) / T-score (-1.9) / Z-score (0.0) Right Femur Total: g/cm2 (0.825) / T-score (-1.0) / Z-score (0.6) Right Femoral Neck: g/cm2 (0.611) / T-score (-2.1) / Z-score (0.3) BD/Dexa Bone Density Study IMPRESSION: The patient is considered osteopenic as outlined below according to World Leonardo Organization (WHO) criteria with a high fracture risk. Reference Information: The T-score is the number of standard deviations above or below the standard which is normal for young adults at their peak bone mineral density. The World Health Organization (WHO) interprets the T-scores as follows: Above -1 Normal bone density Between -1 and -2.5 Osteopenia Equal to / or below -2.5 Osteoporosis As a practical clinical guideline, osteopenia may be graded as follows: Mild -1 through -1.5 Moderate -1.6 through -2.0 Severe -2.1 through -2.4 The Z-score is the number of standard deviations above or below age-matched controls. A Z-score of less than -1.5 would be considered abnormal. References: 1. NIH Osteoporosis and Related Bone Diseases www osteo.org 2. International Society for Clinical Densitometry www iscd.org 3. National Osteoporosis Foundation www nof.org Electronically Signed: Joseph Ott MD at 15:32 EST , Service support ,
== END ==
PROVIDERS: PCP Family Medicine Geriatric Medicine; Visit Provider Family Medicine Geriatric Medicine
DX: Z78.0 Asymptomatic menopausal state (principal); M19.90 Unspecified osteoarthritis, unspecified site; M85.80 Other specified disorders of bone density and structure, unspecified site
CPT/HCPCS: 77080

== ENCOUNTER → 2021-03-04 | Outpatient (CLI) | payer MEDICARE, SELFPAY | END | disposition home or self-care (01) | LOC: LABSPEC 16:09 | PROVIDERS: PCP Family Medicine Geriatric Medicine; Visit Provider Family Medicine Geriatric Medicine | DX: N39.0 Urinary tract infection, site not specified (principal) | CPT/HCPCS: 87086; 87088; 87186 ==

== ENCOUNTER 2021-03-21 15:49 | Outpatient (CLI) | payer MEDICARE, SELFPAY ==
[2021-03-21 16:56] LABS: Absolute Lymphocyte Count 1.26 X10^3/uL (0.83-4.51); Absolute Neutrophil Count 6.3 X10^3/uL (2.0-7.7); Basophil# 0.05 X10^3/uL; Basophil% 0.6 % (0-1); Eosinophil# 0.15 X10^3/uL; Eosinophils% 1.8 % (0-5); Hematocrit 41.7 % (37-47); Hemoglobin 13.1 g/dL (12.0-15.0); Lymphocyte # 1.26 X10^3/ul (0.83-4.51); Lymphocyte % 14.7 % (19-41); Mean Corp Hgb Conc 31.4 g/dL (32-36); Mean Corpuscular Hgb 31.9 pg (27.0-32.0); Mean Corpuscular Volume 101.5 fL (81-99); Mean Platelet Vol. 9.6 fl (6.2-12.0); Monocyte# 0.68 X10^3/uL; Monocyte% 7.9 % (0-10); NRBC Flagged by Analyzer 0 % (0-5); Neutrophil # 6.31 X10^3/uL (2.7-7.7); Neutrophil % 73.7 % (47-70); Platelet Count 261 K/mm3 (150-450); RBC Distribution Width CV 14.6 % (11.6-14.6); Red Blood Count 4.11 M/mm3 (4.2-5.4); White Blood Count 8.6 K/mm3 (4.4-11.0)
[2021-03-21 17:22] LABS: ALB/GLOB Ratio 0.9 RATIO (0.9-2.4); AST(SGOT) 23 U/L (15-37); Alanine Aminotransfer ALT/SGPT 36 U/L (13-56); Albumin, Serum 3.6 g/dL (3.2-5.0); Alkaline Phosphatase 124 U/L (45-117); Anion Gap 6 (5-15); BUN 24 mg/dL (7-18); BUN/Creat Ratio 30.3 RATIO (10-20); Calcium,Total 9.5 mg/dL (8.5-10.1); Chloride 102 mmol/L (98-107); Creatinine, Serum 0.79 mg/dL (0.55-1.02); EST Glomerular Filtration Rate 76 mL/min (>60); Est Glom Filt Rate - Afr Amer 92 mL/min (>60); Globulin 4.1 g/dL (2.2-4.2); Glucose 91 mg/dL (74-106); Potassium 4.2 mmol/L (3.5-5.1); Protein, Total 7.7 g/dL (6.4-8.2); Sodium Level 139 mmol/L (136-145)
== END 2021-03-21 23:59 | disposition short-term general hospital (02) ==
LOC: LAB 15:51
PROVIDERS: PCP Family Medicine Geriatric Medicine; Visit Provider Internal Medicine Rheumatology
DX: M06.4 Inflammatory polyarthropathy (principal); R76.8 Other specified abnormal immunological findings in serum; M19.041 Primary osteoarthritis, right hand; M19.042 Primary osteoarthritis, left hand; M47.892 Other spondylosis, cervical region; M21.41 Flat foot [pes planus] (acquired), right foot; R51.9 Headache, unspecified; I10 Essential (primary) hypertension; F32.A Depression, unspecified; E78.5 Hyperlipidemia, unspecified; Z79.899 Other long term (current) drug therapy
CPT/HCPCS: 36415; 80053; 85025

== ENCOUNTER 2021-03-24 11:59 | Outpatient (CLI) | payer MEDICARE, SELFPAY ==
[2021-03-24 12:39] LABS: Absolute Lymphocyte Count 0.76 X10^3/uL (0.83-4.51); Absolute Neutrophil Count 5.5 X10^3/uL (2.0-7.7); Basophil# 0.02 X10^3/uL; Basophil% 0.3 % (0-1); Eosinophil# 0.01 X10^3/uL; Eosinophils% 0.1 % (0-5); Hematocrit 45.1 % (37-47); Hemoglobin 14.9 g/dL (12.0-15.0); Lymphocyte # 0.76 X10^3/ul (0.83-4.51); Lymphocyte % 11.1 % (19-41); Mean Corpuscular Hgb 32.6 pg (27.0-32.0); Mean Corpuscular Volume 98.7 fL (81-99); Mean Platelet Vol. 9.6 fl (6.2-12.0); Monocyte# 0.48 X10^3/uL; NRBC Flagged by Analyzer 0 % (0-5); Neutrophil # 5.48 X10^3/uL (2.7-7.7); Neutrophil % 79.9 % (47-70); Platelet Count 255 K/mm3 (150-450); RBC Distribution Width CV 14.8 % (11.6-14.6); RBC Distribution Width SD 52.6 fl (35.1-43.9); Red Blood Count 4.57 M/mm3 (4.2-5.4); White Blood Count 6.9 K/mm3 (4.4-11.0)
[2021-03-24 13:34] LABS: ALB/GLOB Ratio 0.8 RATIO (0.9-2.4); AST(SGOT) 28 U/L (15-37); Alanine Aminotransfer ALT/SGPT 37 U/L (13-56); Albumin, Serum 3.4 g/dL (3.2-5.0); Alkaline Phosphatase 131 U/L (45-117); Anion Gap 10 (5-15); BUN 21 mg/dL (7-18); BUN/Creat Ratio 15.1 RATIO (10-20); Calcium,Total 8.8 mg/dL (8.5-10.1); Chloride 101 mmol/L (98-107); Creatinine, Serum 1.39 mg/dL (0.55-1.02); EST Glomerular Filtration Rate 40 mL/min (>60); Est Glom Filt Rate - Afr Amer 48 mL/min (>60); Globulin 4.3 g/dL (2.2-4.2); Glucose 142 mg/dL (74-106); Protein, Total 7.7 g/dL (6.4-8.2); Sodium Level 136 mmol/L (136-145)
--- NOTE | 2021-03-24 13:56 | RAD_ITS ---
EXAM: XR ABDOMEN, 1 VIEW CLINICAL INDICATION: DIARRHEA Technologist Notes FEELING SICK FOR ABOUT A WEEK. DIARRHEA. TECHNIQUE: Frontal supine view of the abdomen/pelvis. This report was created using [employer] report generation technology. COMPARISON: None. FINDINGS: LOWER THORAX: No acute pathology. GASTROINTESTINAL TRACT: Unremarkable. Non-obstructive. No bowel or stomach distention. ORGANS: Unremarkable as visualized. No organomegaly. No abnormal calcifications. BONES/JOINTS: Degenerative findings in the lumbar spine. SOFT TISSUES: No acute pathology. VASCULATURE: Aortobiiliac stent graft. There are atherosclerotic vascular calcifications. RAD/Abdomen Single View IMPRESSION: No acute findings. Electronically Signed: Aurelinao Stokes MD at 17:27 EST , Service support ,
--- NOTE | 2021-03-24 13:58 | RAD_ITS ---
STUDY: X-RAY CHEST REASON FOR EXAM: Female, 70 years old. Technologist Notes FEELING SICK FOR ABOUT A WEEK. COUGH. COUGH TECHNIQUE: XR Chest 2 Views COMPARISON: Prior comparison studies are not available for review at this time. FINDINGS: There is no demonstrated pleural abnormality. Normal size heart. Normal mediastinum and veronica. Normal visualized pulmonary arteries. There is atherosclerotic calcification of the aortic arch with tortuosity. There are diffuse degenerative changes of the visualized thoracic spine. There is degenerative osteoarthritis of the bilateral shoulders. There is no demonstrated abnormality of the visualized soft tissue structures of the upper abdomen. RAD/Chest PA and Lateral IMPRESSION: There are no acute findings. Electronically Signed: Aureilano Stokes MD at 17:18 EST , Service support ,
== END 2021-03-24 23:59 | disposition short-term general hospital (02) ==
PROVIDERS: PCP Family Medicine Geriatric Medicine; Referring Provider Family Medicine Geriatric Medicine; Visit Provider Family Medicine Geriatric Medicine
DX: N39.0 Urinary tract infection, site not specified (principal); R11.2 Nausea with vomiting, unspecified; R19.7 Diarrhea, unspecified
CPT/HCPCS: 36415; 71046; 74018; 80053; 85025; 87086; 87088; 87635; 87804; 87807; C9803; U0003; U0005

== ENCOUNTER 2021-03-26 18:04 | Outpatient (CLI) | payer MEDICARE, SELFPAY ==
[2021-03-26 18:46] VITALS: BP 181/86; PULSE 76; RESP 16; TEMP 36.6; O2SAT 97; BMI 32.1
[2021-03-26] MEDS: 0.9% Saline Lock 10 ML Syringe IV (18:53)
[2021-03-26 19:28] VITALS: BP 156/76; PULSE 64; RESP 16; TEMP 36.6; O2SAT 98
[2021-03-26 20:26] VITALS: BP 147/78; PULSE 78; RESP 16; TEMP 36.9; O2SAT 94
== END 2021-03-26 23:59 | disposition home or self-care (01) ==
LOC: MS3OUT 18:05 → MS3 18:05
PROVIDERS: PCP Family Medicine Geriatric Medicine; Visit Provider Nurse Practitioner Acute Care
DX: Z23 Encounter for immunization (principal); U07.1 COVID-19
CPT/HCPCS: J7050; M0245; Q0245; A4216

== ENCOUNTER 2021-04-10 14:21 | Outpatient (CLI) | payer MEDICARE, SELFPAY ==
--- NOTE | 2021-04-10 16:15 | RAD_ITS ---
EXAM: XR ABDOMEN, 2 VIEWS CLINICAL INDICATION: NAUSEA TECHNIQUE: Frontal view of the abdomen/pelvis with upright view of the abdomen. This report was created using [employer] report generation technology. COMPARISON: None. FINDINGS: LOWER THORAX: No acute pathology. INTRAPERITONEAL SPACE: No free air. GASTROINTESTINAL TRACT: Unremarkable. Non-obstructive. No bowel or stomach distention. ORGANS: Unremarkable as visualized. No organomegaly. No abnormal calcifications. BONES/JOINTS: Mild scoliosis of the lumbar spine. Aortic stent graft in place. There are degenerative changes of the lumbar spine. SOFT TISSUES: No acute pathology. RAD/Abd Inc Decub and/or Erect IMPRESSION: No acute findings in the abdomen or pelvis. Electronically Signed: Aureliano Stokes MD at 15:27 EST ,
[2021-04-10 17:29] LABS: Absolute Neutrophil Count 11.5 X10^3/uL (2.0-7.7); Basophil# 0.07 X10^3/uL; Basophil% 0.5 % (0-1); Eosinophil# 0.13 X10^3/uL; Eosinophils% 0.9 % (0-5); Hematocrit 36.7 % (37-47); Hemoglobin 11.5 g/dL (12.0-15.0); Mean Corp Hgb Conc 31.3 g/dL (32-36); Mean Corpuscular Volume 102.2 fL (81-99); Mean Platelet Vol. 10.2 fl (6.2-12.0); Monocyte# 1.81 X10^3/uL; NRBC Flagged by Analyzer 0 % (0-5); Neutrophil # 11.45 X10^3/uL (2.7-7.7); POSITIVE DIFFERENTIAL YES; Platelet Count 419 K/mm3 (150-450); RBC Distribution Width CV 14.9 % (11.6-14.6); RBC Distribution Width SD 54.6 fl (35.1-43.9); Red Blood Count 3.59 M/mm3 (4.2-5.4); White Blood Count 15.1 K/mm3 (4.4-11.0)
[2021-04-10 17:51] LABS: Differential Indicated SCAN CRITERIA MET
[2021-04-10 17:53] LABS: Platelet Estimate SLT INC (ADEQ)
[2021-04-10 17:54] LABS: Anisocytosis 1+; Macrocytosis 1+; Red Cell Morphology N CHROM NORMAL (NORM C&C)
[2021-04-10 17:58] LABS: Anion Gap 7 (5-15); BUN 25 mg/dL (7-18); BUN/Creat Ratio 16.4 RATIO (10-20); Calcium,Total 9.7 mg/dL (8.5-10.1); Chloride 97 mmol/L (98-107); Creatinine, Serum 1.52 mg/dL (0.55-1.02); EST Glomerular Filtration Rate 36 mL/min (>60); Est Glom Filt Rate - Afr Amer 43 mL/min (>60); Glucose 98 mg/dL (74-106); Potassium 4.2 mmol/L (3.5-5.1); Sodium Level 134 mmol/L (136-145)
[2021-04-11 00:42] LABS: Pathologist Review May foll
== END 2021-04-10 23:59 | disposition short-term general hospital (02) ==
PROVIDERS: PCP Family Medicine Geriatric Medicine; Referring Provider Family Medicine Geriatric Medicine; Visit Provider Family Medicine Geriatric Medicine
DX: R11.0 Nausea (principal); N39.0 Urinary tract infection, site not specified
CPT/HCPCS: 36415; 74019; 80048; 85025; 87086; 87088; 87186

== ENCOUNTER 2021-05-09 10:41 | Outpatient (CLI) | payer MEDICARE, SELFPAY ==
--- NOTE | 2021-05-09 10:44 | RAD_ITS ---
STUDY: X-RAY - LUMBAR SPINE REASON FOR EXAM: Female, 70 years old. Back pain LOW BACK PAIN TECHNIQUE: XR Spine Lumbar Comp W/ Bending Min 6 Views COMPARISON: None FINDINGS: Normal lumbar lordosis. There is no substantial scoliosis. There is a normal alignment of the vertebrae. There is multilevel endplate spondylosis of the lumbar vertebrae. There is multi-level degenerative disc disease with multi-level disc space narrowing. There are atherosclerotic vascular calcifications. Aortobiiliac stent graft. The soft tissue structures are unremarkable. RAD/L/S Spine w Bend Min 6 Vw IMPRESSION: Degenerative changes of the spine, as detailed above. There are no acute findings. Electronically Signed: Aureliano Stokes MD at 17:47 EST ,
== END 2021-05-09 23:59 | disposition home or self-care (01) ==
LOC: RAD 10:43
PROVIDERS: PCP Family Medicine Geriatric Medicine; Referring Provider Family Medicine Geriatric Medicine; Visit Provider Family Medicine Geriatric Medicine
DX: M54.50 Low back pain, unspecified (principal)
CPT/HCPCS: 72114

== ENCOUNTER 2021-06-28 11:34 | Outpatient (CLI) | payer MEDICARE, SELFPAY ==
[2021-06-28 12:08] LABS: Absolute Lymphocyte Count 1.69 X10^3/uL (0.83-4.51); Absolute Neutrophil Count 7.5 X10^3/uL (2.0-7.7); Basophil# 0.06 X10^3/uL; Basophil% 0.6 % (0-1); Hemoglobin 13.4 g/dL (12.0-15.0); Lymphocyte # 1.69 X10^3/ul (0.83-4.51); Lymphocyte % 16.6 % (19-41); Mean Corp Hgb Conc 32.7 g/dL (32-36); Mean Corpuscular Hgb 31.8 pg (27.0-32.0); Mean Corpuscular Volume 97.2 fL (81-99); Mean Platelet Vol. 9.4 fl (6.2-12.0); Monocyte# 0.73 X10^3/uL; Monocyte% 7.2 % (0-10); NRBC Flagged by Analyzer 0 % (0-5); Neutrophil # 7.49 X10^3/uL (2.7-7.7); Neutrophil % 73.6 % (47-70); Platelet Count 349 K/mm3 (150-450); RBC Distribution Width CV 15.1 % (11.6-14.6); Red Blood Count 4.22 M/mm3 (4.2-5.4); White Blood Count 10.2 K/mm3 (4.4-11.0)
[2021-06-28 12:20] LABS: AST(SGOT) 19 U/L (15-37); Alanine Aminotransfer ALT/SGPT 28 U/L (13-56); Albumin, Serum 3.6 g/dL (3.2-5.0); Alkaline Phosphatase 118 U/L (45-117); Anion Gap 5 (5-15); BUN 23 mg/dL (7-18); BUN/Creat Ratio 22.8 RATIO (10-20); Calcium,Total 9.1 mg/dL (8.5-10.1); Chloride 104 mmol/L (98-107); Creatinine, Serum 1.01 mg/dL (0.55-1.02); EST Glomerular Filtration Rate 57 mL/min (>60); Est Glom Filt Rate - Afr Amer 69 mL/min (>60); Globulin 3.7 g/dL (2.2-4.2); Glucose 100 mg/dL (74-106); Protein, Total 7.3 g/dL (6.4-8.2); Sodium Level 139 mmol/L (136-145)
== END 2021-06-28 23:59 | disposition home or self-care (01) ==
LOC: LAB 11:36
PROVIDERS: PCP Family Medicine Geriatric Medicine; Referring Provider Internal Medicine Rheumatology; Visit Provider Internal Medicine Rheumatology
DX: M06.4 Inflammatory polyarthropathy (principal); R76.8 Other specified abnormal immunological findings in serum; M19.041 Primary osteoarthritis, right hand; M47.892 Other spondylosis, cervical region; M21.41 Flat foot [pes planus] (acquired), right foot; R51.9 Headache, unspecified; I10 Essential (primary) hypertension; F32.9 Major depressive disorder, single episode, unspecified; E78.5 Hyperlipidemia, unspecified; M21.42 Flat foot [pes planus] (acquired), left foot; Z85.3 Personal history of malignant neoplasm of breast; Z79.899 Other long term (current) drug therapy
CPT/HCPCS: 36415; 80053; 85025

== ENCOUNTER 2021-07-02 09:41 | Outpatient (CLI) | payer MEDICARE, SELFPAY ==
[2021-07-02 12:10] LABS: Absolute Lymphocyte Count 1.78 X10^3/uL (0.83-4.51); Absolute Neutrophil Count 8.3 X10^3/uL (2.0-7.7); Basophil# 0.07 X10^3/uL; Basophil% 0.6 % (0-1); Eosinophil# 0.15 X10^3/uL; Eosinophils% 1.3 % (0-5); Hematocrit 41.8 % (37-47); Hemoglobin 13.4 g/dL (12.0-15.0); Lymphocyte # 1.78 X10^3/ul (0.83-4.51); Lymphocyte % 15.7 % (19-41); Mean Corp Hgb Conc 32.1 g/dL (32-36); Mean Corpuscular Hgb 31.9 pg (27.0-32.0); Mean Corpuscular Volume 99.5 fL (81-99); Mean Platelet Vol. 10.5 fl (6.2-12.0); Monocyte# 0.78 X10^3/uL; Monocyte% 6.9 % (0-10); NRBC Flagged by Analyzer 0 % (0-5); Neutrophil # 8.28 X10^3/uL (2.7-7.7); Neutrophil % 73.2 % (47-70); Platelet Count 363 K/mm3 (150-450); RBC Distribution Width CV 15.4 % (11.6-14.6); RBC Distribution Width SD 55.2 fl (35.1-43.9); White Blood Count 11.3 K/mm3 (4.4-11.0)
[2021-07-02 12:42] LABS: ALB/GLOB Ratio 0.9 RATIO (0.9-2.4); AST(SGOT) 16 U/L (15-37); Alanine Aminotransfer ALT/SGPT 31 U/L (13-56); Albumin, Serum 3.5 g/dL (3.2-5.0); Alkaline Phosphatase 115 U/L (45-117); Anion Gap 7 (5-15); BUN 25 mg/dL (7-18); BUN/Creat Ratio 26.3 RATIO (10-20); Calcium,Total 9.5 mg/dL (8.5-10.1); Chloride 101 mmol/L (98-107); Cholesterol 223 mg/dL (200); Creatinine, Serum 0.95 mg/dL (0.55-1.02); EST Glomerular Filtration Rate 62 mL/min (>60); Est Glom Filt Rate - Afr Amer 75 mL/min (>60); Globulin 3.7 g/dL (2.2-4.2); Glucose 112 mg/dL (74-106); High Density Lipoprotein 45 mg/dL; Potassium 4.1 mmol/L (3.5-5.1); Protein, Total 7.2 g/dL (6.4-8.2); Sodium Level 138 mmol/L (136-145); Thyroid Stim Hormone (TSH) 1.52 uIU/mL (0.358-3.74); Triglycerides 343 mg/dL; Uric Acid 4.1 mg/dL (2.6-6.0); Very Low Density Lipoprotein 69 mg/dL (5-40)
== END 2021-07-02 23:59 | disposition home or self-care (01) ==
LOC: POLAB3 09:44
PROVIDERS: PCP Family Medicine Geriatric Medicine; Visit Provider Family Medicine Geriatric Medicine
DX: E55.9 Vitamin D deficiency, unspecified (principal); E78.5 Hyperlipidemia, unspecified; I10 Essential (primary) hypertension
CPT/HCPCS: 36415; 80053; 80061; 82306; 84443; 84550; 85025

== ENCOUNTER → 2021-07-11 | Outpatient (CLI) | payer MEDICARE, SELFPAY ==
--- NOTE | 2021-07-11 12:00 | US_ITS ---
STUDY: THYROID ULTRASOUND REASON FOR EXAM: Female, 70 years old. THYROID NODULE TECHNIQUE: Ultrasound evaluation of the thyroid was performed with real-time and static rider-scale imaging. COMPARISON: 04/29/2020 CT chest FINDINGS: RIGHT LOBE: The right lobe of the thyroid gland measures 4.2 x 1.7 cm. There is a homogeneous echotexture. There are no demonstrated solid, cystic or complex lesions. LEFT LOBE: The left lobe of the thyroid gland measures 4.1 x 1.6 cm. There is a homogeneous echotexture. There are no demonstrated solid, cystic or complex lesions. ISTHMUS: The isthmus measures 3 mm. US/Thyroid IMPRESSION: There are no acute findings on this ultrasound examination of the thyroid. Electronically Signed: Aureliano Stokes MD at 19:17 EDT ,
== END | disposition home or self-care (01) ==
LOC: US 11:58
PROVIDERS: PCP Family Medicine Geriatric Medicine; Referring Provider Family Medicine Geriatric Medicine; Visit Provider Family Medicine Geriatric Medicine
DX: E04.1 Nontoxic single thyroid nodule (principal)
CPT/HCPCS: 76536

== ENCOUNTER → 2021-09-01 | Outpatient (CLI) | payer MEDICARE, SELFPAY ==
[2021-09-01 08:31] LABS: Absolute Lymphocyte Count 1.96 X10^3/uL (0.83-4.51); Absolute Neutrophil Count 8.2 X10^3/uL (2.0-7.7); Basophil# 0.11 X10^3/uL; Basophil% 0.9 % (0-1); Eosinophil# 0.14 X10^3/uL; Eosinophils% 1.2 % (0-5); Hematocrit 43.8 % (37-47); Hemoglobin 13.9 g/dL (12.0-15.0); Lymphocyte # 1.96 X10^3/ul (0.83-4.51); Lymphocyte % 16.9 % (19-41); Mean Corp Hgb Conc 31.7 g/dL (32-36); Mean Corpuscular Hgb 31.8 pg (27.0-32.0); Mean Corpuscular Volume 100.2 fL (81-99); Mean Platelet Vol. 9.5 fl (6.2-12.0); Monocyte# 0.82 X10^3/uL; Monocyte% 7.1 % (0-10); NRBC Flagged by Analyzer 0 % (0-5); Neutrophil # 8.22 X10^3/uL (2.7-7.7); Platelet Count 315 K/mm3 (150-450); RBC Distribution Width CV 14.5 % (11.6-14.6); RBC Distribution Width SD 51.9 fl (35.1-43.9); Red Blood Count 4.37 M/mm3 (4.2-5.4); White Blood Count 11.6 K/mm3 (4.4-11.0)
[2021-09-01 09:12] LABS: AST(SGOT) 17 U/L (15-37); Alanine Aminotransfer ALT/SGPT 24 U/L (13-56); Albumin, Serum 3.7 g/dL (3.2-5.0); Alkaline Phosphatase 110 U/L (45-117); Anion Gap 6 (5-15); BUN 21 mg/dL (7-18); BUN/Creat Ratio 22.7 RATIO (10-20); Calcium,Total 9.7 mg/dL (8.5-10.1); Chloride 102 mmol/L (98-107); Creatinine, Serum 0.93 mg/dL (0.55-1.02); EST Glomerular Filtration Rate 63 mL/min (>60); Est Glom Filt Rate - Afr Amer 77 mL/min (>60); Globulin 3.8 g/dL (2.2-4.2); Glucose 111 mg/dL (74-106); Potassium 4.1 mmol/L (3.5-5.1); Protein, Total 7.5 g/dL (6.4-8.2); Sodium Level 138 mmol/L (136-145)
== END | disposition home or self-care (01) ==
LOC: LAB 07:35
PROVIDERS: PCP Family Medicine Geriatric Medicine; Referring Provider Internal Medicine Rheumatology; Visit Provider Internal Medicine Rheumatology
DX: M06.4 Inflammatory polyarthropathy (principal); R76.8 Other specified abnormal immunological findings in serum; M19.041 Primary osteoarthritis, right hand; M19.042 Primary osteoarthritis, left hand; M47.892 Other spondylosis, cervical region; M21.41 Flat foot [pes planus] (acquired), right foot; R51.9 Headache, unspecified; I10 Essential (primary) hypertension; F32.9 Major depressive disorder, single episode, unspecified; E78.5 Hyperlipidemia, unspecified; M21.42 Flat foot [pes planus] (acquired), left foot; Z85.3 Personal history of malignant neoplasm of breast; Z79.899 Other long term (current) drug therapy
CPT/HCPCS: 36415; 80053; 85025

== ENCOUNTER → 2021-10-20 | Outpatient (CLI) | payer MEDICARE, SELFPAY ==
--- NOTE | 2021-10-20 08:36 | CT_ITS ---
STUDY: CTA ABDOMEN AND PELVIS WITH CONTRAST REASON FOR EXAM: Female, 70 years old. HYPERCHOLESTEROLEMIA. Follow-up for abdominal aortic aneurysm repair. RADIATION DOSAGE (If Supplied By Facility): CTDIvol = ( 24.3 ) mGy, DLP = ( 943.42 ) mGycm TECHNIQUE: Transaxial images were obtained from the dome of the diaphragm to the symphysis pubis without oral contrast. IV 100mL Isovue-370 was administered. Sagittal and coronal images were reconstructed. Individualized dose optimization techniques were used for this CT. COMPARISON: Comparison is made with prior study dated 07/12/2020. FINDINGS: There is a 1.7 cm x 0.9 cm spiculated nodule in the left lower lobe. This also evidence of stable scarring at the lung bases. The visualized portions of the heart are within normal limits. Normal liver. Questionable tiny gallstones. Normal spleen. Normal pancreas. Normal bilateral adrenal glands. Normal right kidney. 1 cm cyst in the anterior lateral aspect of the left kidney. Normal visualized stomach. Normal small intestine. There are multiple colonic diverticula consistent with diverticulosis. The appendix is visualized and appears normal. The patient is status post aortic covered stent grafting of the abdominal aorta. The distal limbs are seen in the distal portion of the tetlin aorta with extension into the iliac arteries bilaterally. The tetlin abdominal aorta as a transverse dimension of 4.8 cm. There is evidence of a dilatation of the left common iliac artery measuring 1.7 cm. Normal inferior vena cava. Normal retroperitoneum. Tiny air bubbles are seen along the anterior aspect of the urinary bladder. This may represent possible CALABRESE catheter placement. There is absence of the uterus consistent with a prior hysterectomy. Calcified injection granulomas seen in both buttocks. There are degenerative changes of the visualized lumbar spine. CT/CT ANGIO ABD&PEL W/O&W/DYE IMPRESSION: Status post aneurysmal repair with covered endoluminal stent graft. 1.7 cm x 0.9cm respectively nodule in the left lower lobe. Follow-up recommended. Electronically Signed: Joseph Ott MD at 15:14 EDT ,
--- NOTE | 2021-10-20 08:48 | ART_ITS ---
Reason For Study: PVD Procedure A bilateral lower extremity continuous wave Doppler with analog waveform analysis and ankle brachial indexes. Left Segmental Pressures Left brachial= 169mmHg. Left posterior tibial artery = 151mmHg. Left dorsalis pedis artery = 207mmHg. The left posterior tibial artery waveforms are biphasic. The left dorsalis pedis waveforms are triphasic. Right Segmental Pressures Right brachial= 163mmHg. Right posterior tibial artery = 140mmHg. Right dorsalis pedis artery = 163mmHg. The right posterior tibial artery waveforms are biphasic. The right dorsalis pedis waveforms are triphasic. Indices The right ankle brachial index by the dorsalis pedis is .96. The right ankle brachial index by the posterior tibial artery is .83. The left ankle brachial index by the dorsalis pedis is 1.22. The left ankle brachial index by the posterior tibial artery is .89. VL/Ankle Brachial Index Interpretation Summary No evidence of significant occlusive disease at rest with an ELEUTERIO of 0.96 on the right and 1.22 on the left. There is bilateral biphasic flow noted. Ordering Physician: Reinaldo Morales Performed By: Reinier Luther RVT
[2021-10-20 09:11] LABS: CREATININE FINGERSTICK < 0.9 mg/dL (0.55-1.02); EGFR FINGERSTICK > 60.0000 mL/min (>60)
== END | disposition home or self-care (01) ==
LOC: CVS 08:32
PROVIDERS: PCP Family Medicine Geriatric Medicine; Referring Provider Surgery Vascular Surgery; Visit Provider Surgery Vascular Surgery
DX: I10 Essential (primary) hypertension (principal); I71.4 Abdominal aortic aneurysm, without rupture; I73.9 Peripheral vascular disease, unspecified; E78.00 Pure hypercholesterolemia, unspecified; Z95.828 Presence of other vascular implants and grafts
CPT/HCPCS: 74174; 93922; Q9967

== ENCOUNTER → 2021-11-03 | Outpatient (CLI) | payer MEDICARE, SELFPAY ==
[2021-11-03 11:13] LABS: Absolute Lymphocyte Count 2.12 X10^3/uL (0.83-4.51); Absolute Neutrophil Count 7.2 X10^3/uL (2.0-7.7); Basophil# 0.08 X10^3/uL; Basophil% 0.8 % (0-1); Eosinophil# 0.17 X10^3/uL; Eosinophils% 1.6 % (0-5); Hematocrit 42.1 % (37-47); Hemoglobin 13.9 g/dL (12.0-15.0); Lymphocyte # 2.12 X10^3/ul (0.83-4.51); Lymphocyte % 20.4 % (19-41); Mean Corpuscular Hgb 33.1 pg (27.0-32.0); Mean Corpuscular Volume 100.2 fL (81-99); Mean Platelet Vol. 9.4 fl (6.2-12.0); Monocyte# 0.72 X10^3/uL; Monocyte% 6.9 % (0-10); NRBC Flagged by Analyzer 0 % (0-5); Neutrophil # 7.16 X10^3/uL (2.7-7.7); Platelet Count 323 K/mm3 (150-450); RBC Distribution Width CV 14.4 % (11.6-14.6); RBC Distribution Width SD 51.6 fl (35.1-43.9); White Blood Count 10.4 K/mm3 (4.4-11.0)
[2021-11-03 11:56] LABS: ALB/GLOB Ratio 0.9 RATIO (0.9-2.4); AST(SGOT) 18 U/L (15-37); Alanine Aminotransfer ALT/SGPT 26 U/L (13-56); Albumin, Serum 3.5 g/dL (3.2-5.0); Alkaline Phosphatase 114 U/L (45-117); Anion Gap 6 (5-15); BUN 16 mg/dL (7-18); BUN/Creat Ratio 20.1 RATIO (10-20); Calcium,Total 9.5 mg/dL (8.5-10.1); Chloride 102 mmol/L (98-107); EST Glomerular Filtration Rate 75 mL/min (>60); Est Glom Filt Rate - Afr Amer 91 mL/min (>60); Globulin 3.9 g/dL (2.2-4.2); Glucose 93 mg/dL (74-106); Potassium 3.8 mmol/L (3.5-5.1); Protein, Total 7.4 g/dL (6.4-8.2); Sodium Level 138 mmol/L (136-145)
== END | disposition home or self-care (01) ==
PROVIDERS: PCP Family Medicine Geriatric Medicine; Visit Provider Internal Medicine Rheumatology
DX: M06.4 Inflammatory polyarthropathy (principal); R76.8 Other specified abnormal immunological findings in serum; M19.041 Primary osteoarthritis, right hand; M47.897 Other spondylosis, lumbosacral region; M47.892 Other spondylosis, cervical region; M21.41 Flat foot [pes planus] (acquired), right foot; R51.9 Headache, unspecified; I10 Essential (primary) hypertension; F32.9 Major depressive disorder, single episode, unspecified; E78.5 Hyperlipidemia, unspecified; M21.42 Flat foot [pes planus] (acquired), left foot; Z85.3 Personal history of malignant neoplasm of breast; Z79.899 Other long term (current) drug therapy
CPT/HCPCS: 36415; 80053; 85025

== ENCOUNTER → 2021-12-26 | Outpatient (CLI) | payer MEDICARE, SELFPAY ==
[2021-12-26 10:54] LABS: Basophil# 0.05 X10^3/uL; Basophil% 0.6 % (0-1); Eosinophil# 0.15 X10^3/uL; Eosinophils% 1.7 % (0-5); Hematocrit 41.2 % (37-47); Hemoglobin 13.2 g/dL (12.0-15.0); Lymphocyte % 20.8 % (19-41); Mean Corpuscular Hgb 32.6 pg (27.0-32.0); Mean Corpuscular Volume 101.7 fL (81-99); Mean Platelet Vol. 9.5 fl (6.2-12.0); Monocyte% 6.9 % (0-10); NRBC Flagged by Analyzer 0 % (0-5); Neutrophil # 5.96 X10^3/uL (2.7-7.7); Neutrophil % 68.7 % (47-70); Platelet Count 334 K/mm3 (150-450); RBC Distribution Width CV 14.3 % (11.6-14.6); RBC Distribution Width SD 52.7 fl (35.1-43.9); Red Blood Count 4.05 M/mm3 (4.2-5.4); White Blood Count 8.7 K/mm3 (4.4-11.0)
[2021-12-26 11:25] LABS: ALB/GLOB Ratio 0.8 RATIO (0.9-2.4); AST(SGOT) 20 U/L (15-37); Alanine Aminotransfer ALT/SGPT 24 U/L (13-56); Albumin, Serum 3.4 g/dL (3.2-5.0); Alkaline Phosphatase 122 U/L (45-117); Anion Gap 7 (5-15); BUN 15 mg/dL (7-18); BUN/Creat Ratio 18.9 RATIO (10-20); Calcium,Total 9.5 mg/dL (8.5-10.1); Chloride 101 mmol/L (98-107); Creatinine, Serum 0.79 mg/dL (0.55-1.02); EST Glomerular Filtration Rate 76 mL/min (>60); Est Glom Filt Rate - Afr Amer 91 mL/min (>60); Globulin 4.1 g/dL (2.2-4.2); Glucose 99 mg/dL (74-106); Potassium 4.1 mmol/L (3.5-5.1); Protein, Total 7.5 g/dL (6.4-8.2); Sodium Level 138 mmol/L (136-145)
== END | disposition home or self-care (01) ==
LOC: LAB 10:01
PROVIDERS: PCP Family Medicine Geriatric Medicine; Referring Provider Internal Medicine Rheumatology; Visit Provider Internal Medicine Rheumatology
DX: M06.4 Inflammatory polyarthropathy (principal); I10 Essential (primary) hypertension; E78.5 Hyperlipidemia, unspecified; R76.8 Other specified abnormal immunological findings in serum; Z79.899 Other long term (current) drug therapy
CPT/HCPCS: 36415; 80053; 85025

== ENCOUNTER → 2022-01-07 | Outpatient (CLI) | payer MEDICARE, SELFPAY ==
[2022-01-07 12:46] LABS: Absolute Lymphocyte Count 1.54 X10^3/uL (0.83-4.51); Absolute Neutrophil Count 6.2 X10^3/uL (2.0-7.7); Basophil# 0.06 X10^3/uL; Basophil% 0.7 % (0-1); Eosinophil# 0.18 X10^3/uL; Hematocrit 38.7 % (37-47); Hemoglobin 12.6 g/dL (12.0-15.0); Lymphocyte # 1.54 X10^3/ul (0.83-4.51); Lymphocyte % 17.3 % (19-41); Mean Corp Hgb Conc 32.6 g/dL (32-36); Mean Corpuscular Hgb 33.2 pg (27.0-32.0); Mean Corpuscular Volume 102.1 fL (81-99); Mean Platelet Vol. 9.9 fl (6.2-12.0); Monocyte# 0.78 X10^3/uL; Monocyte% 8.8 % (0-10); NRBC Flagged by Analyzer 0 % (0-5); Neutrophil # 6.23 X10^3/uL (2.7-7.7); Neutrophil % 69.9 % (47-70); Platelet Count 349 K/mm3 (150-450); RBC Distribution Width CV 14.5 % (11.6-14.6); RBC Distribution Width SD 53.1 fl (35.1-43.9); Red Blood Count 3.79 M/mm3 (4.2-5.4); White Blood Count 8.9 K/mm3 (4.4-11.0)
[2022-01-07 13:08] LABS: AST(SGOT) 14 U/L (15-37); Alanine Aminotransfer ALT/SGPT 22 U/L (13-56); Albumin, Serum 3.5 g/dL (3.2-5.0); Alkaline Phosphatase 110 U/L (45-117); Anion Gap 7 (5-15); BUN 20 mg/dL (7-18); BUN/Creat Ratio 20.1 RATIO (10-20); Calcium,Total 9.8 mg/dL (8.5-10.1); Chloride 100 mmol/L (98-107); Cholesterol 172 mg/dL (200); EST Glomerular Filtration Rate 58 mL/min (>60); Est Glom Filt Rate - Afr Amer 70 mL/min (>60); Globulin 3.6 g/dL (2.2-4.2); Glucose 90 mg/dL (74-106); High Density Lipoprotein 40 mg/dL; Potassium 4.2 mmol/L (3.5-5.1); Protein, Total 7.1 g/dL (6.4-8.2); Sodium Level 136 mmol/L (136-145); Thyroid Stim Hormone (TSH) 1.71 uIU/mL (0.358-3.74); Triglycerides 217 mg/dL; Uric Acid 3.2 mg/dL (2.6-6.0); Very Low Density Lipoprotein 43 mg/dL (5-40)
[2022-01-07 13:16] LABS: Vitamin D,25 Hydroxy 38.6 ng/mL
== END | disposition home or self-care (01) ==
LOC: POLAB3 10:41
PROVIDERS: PCP Family Medicine Geriatric Medicine; Visit Provider Family Medicine Geriatric Medicine
DX: I10 Essential (primary) hypertension (principal); E78.5 Hyperlipidemia, unspecified; M10.9 Gout, unspecified; E55.9 Vitamin D deficiency, unspecified
CPT/HCPCS: 36415; 80053; 80061; 82306; 84443; 84550; 85025

== ENCOUNTER → 2022-03-18 | Outpatient (CLI) | payer MEDICARE, SELFPAY ==
[2022-03-18 12:21] LABS: Absolute Lymphocyte Count 1.53 X10^3/uL (0.83-4.51); Absolute Neutrophil Count 5.4 X10^3/uL (2.0-7.7); Basophil# 0.06 X10^3/uL; Basophil% 0.7 % (0-1); Eosinophils% 2.5 % (0-5); Hematocrit 39.5 % (37-47); Hemoglobin 12.8 g/dL (12.0-15.0); Lymphocyte # 1.53 X10^3/ul (0.83-4.51); Lymphocyte % 19.1 % (19-41); Mean Corp Hgb Conc 32.4 g/dL (32-36); Mean Corpuscular Hgb 32.6 pg (27.0-32.0); Mean Corpuscular Volume 100.5 fL (81-99); Mean Platelet Vol. 9.5 fl (6.2-12.0); Monocyte# 0.73 X10^3/uL; Monocyte% 9.1 % (0-10); NRBC Flagged by Analyzer 0 % (0-5); Neutrophil # 5.44 X10^3/uL (2.7-7.7); Neutrophil % 67.7 % (47-70); Platelet Count 338 K/mm3 (150-450); RBC Distribution Width CV 14.3 % (11.6-14.6); Red Blood Count 3.93 M/mm3 (4.2-5.4)
[2022-03-18 12:38] LABS: ALB/GLOB Ratio 0.9 RATIO (0.9-2.4); AST(SGOT) 20 U/L (15-37); Alanine Aminotransfer ALT/SGPT 26 U/L (13-56); Albumin, Serum 3.5 g/dL (3.2-5.0); Alkaline Phosphatase 117 U/L (45-117); Anion Gap 5 (5-15); BUN 17 mg/dL (7-18); BUN/Creat Ratio 20.6 RATIO (10-20); Calcium,Total 9.4 mg/dL (8.5-10.1); Chloride 105 mmol/L (98-107); Creatinine, Serum 0.82 mg/dL (0.55-1.02); EST Glomerular Filtration Rate 72 mL/min (>60); Est Glom Filt Rate - Afr Amer 88 mL/min (>60); Globulin 3.8 g/dL (2.2-4.2); Glucose 85 mg/dL (74-106); Potassium 4.2 mmol/L (3.5-5.1); Protein, Total 7.3 g/dL (6.4-8.2); Sodium Level 140 mmol/L (136-145)
== END | disposition home or self-care (01) ==
PROVIDERS: PCP Family Medicine Geriatric Medicine; Visit Provider Internal Medicine Rheumatology
DX: Z79.899 Other long term (current) drug therapy (principal); M06.4 Inflammatory polyarthropathy; R76.8 Other specified abnormal immunological findings in serum; I10 Essential (primary) hypertension; E78.5 Hyperlipidemia, unspecified
CPT/HCPCS: 36415; 80053; 85025

== ENCOUNTER → 2022-06-08 | Outpatient (CLI) | payer MEDICARE, SELFPAY ==
[2022-06-08 15:58] LABS: Absolute Lymphocyte Count 2.04 X10^3/uL (0.83-4.51); Absolute Neutrophil Count 7.5 X10^3/uL (2.0-7.7); Basophil# 0.05 X10^3/uL; Basophil% 0.5 % (0-1); Eosinophil# 0.18 X10^3/uL; Eosinophils% 1.7 % (0-5); Hematocrit 39.5 % (37-47); Hemoglobin 12.5 g/dL (12.0-15.0); Lymphocyte # 2.04 X10^3/ul (0.83-4.51); Lymphocyte % 18.9 % (19-41); Mean Corp Hgb Conc 31.6 g/dL (32-36); Mean Corpuscular Hgb 30.8 pg (27.0-32.0); Mean Corpuscular Volume 97.3 fL (81-99); Mean Platelet Vol. 8.9 fl (6.2-12.0); Monocyte% 8.4 % (0-10); NRBC Flagged by Analyzer 0 % (0-5); Neutrophil % 69.6 % (47-70); Platelet Count 398 K/mm3 (150-450); RBC Distribution Width CV 14.3 % (11.6-14.6); RBC Distribution Width SD 50.8 fl (35.1-43.9); Red Blood Count 4.06 M/mm3 (4.2-5.4); White Blood Count 10.8 K/mm3 (4.4-11.0)
[2022-06-08 16:31] LABS: International Normalized Ratio 1.1; Prothrombin Time (Protime)PT. 13.6 SECONDS (11.7-14.9)
[2022-06-08 16:32] LABS: Anion Gap 4 (5-15); BUN 20 mg/dL (7-18); BUN/Creat Ratio 19.4 RATIO (10-20); Calcium,Total 9.7 mg/dL (8.5-10.1); Chloride 106 mmol/L (98-107); Creatinine, Serum 1.03 mg/dL (0.55-1.02); EST Glomerular Filtration Rate 56 mL/min (>60); Est Glom Filt Rate - Afr Amer 68 mL/min (>60); Glucose 89 mg/dL (74-106); Potassium 4.3 mmol/L (3.5-5.1); Sodium Level 139 mmol/L (136-145)
== END | disposition home or self-care (01) ==
LOC: LAB 15:37
PROVIDERS: PCP Family Medicine Geriatric Medicine; Visit Provider Family Medicine Geriatric Medicine
DX: Z01.818 Encounter for other preprocedural examination (principal)
CPT/HCPCS: 36415; 80048; 85025; 85610

== ENCOUNTER → 2022-06-11 | Outpatient (CLI) | payer MEDICARE, SELFPAY ==
[2022-06-11 14:13] LABS: Absolute Lymphocyte Count 1.68 X10^3/uL (0.83-4.51); Absolute Neutrophil Count 7.8 X10^3/uL (2.0-7.7); Basophil# 0.05 X10^3/uL; Basophil% 0.5 % (0-1); Eosinophil# 0.06 X10^3/uL; Eosinophils% 0.6 % (0-5); Hematocrit 37.7 % (37-47); Hemoglobin 11.8 g/dL (12.0-15.0); Lymphocyte # 1.68 X10^3/ul (0.83-4.51); Mean Corp Hgb Conc 31.3 g/dL (32-36); Mean Corpuscular Hgb 30.3 pg (27.0-32.0); Mean Corpuscular Volume 96.9 fL (81-99); Mean Platelet Vol. 9.4 fl (6.2-12.0); Monocyte# 0.77 X10^3/uL; Monocyte% 7.3 % (0-10); NRBC Flagged by Analyzer 0 % (0-5); Neutrophil # 7.84 X10^3/uL (2.7-7.7); Neutrophil % 74.7 % (47-70); Platelet Count 399 K/mm3 (150-450); RBC Distribution Width CV 14.4 % (11.6-14.6); RBC Distribution Width SD 49.4 fl (35.1-43.9); Red Blood Count 3.89 M/mm3 (4.2-5.4); White Blood Count 10.5 K/mm3 (4.4-11.0)
[2022-06-11 14:40] LABS: ALB/GLOB Ratio 0.8 RATIO (0.9-2.4); AST(SGOT) 15 U/L (15-37); Alanine Aminotransfer ALT/SGPT 20 U/L (13-56); Albumin, Serum 3.2 g/dL (3.2-5.0); Alkaline Phosphatase 130 U/L (45-117); Anion Gap 5 (5-15); BUN 19 mg/dL (7-18); BUN/Creat Ratio 19.8 RATIO (10-20); Calcium,Total 9.7 mg/dL (8.5-10.1); Chloride 101 mmol/L (98-107); Creatinine, Serum 0.96 mg/dL (0.55-1.02); EST Glomerular Filtration Rate 61 mL/min (>60); Est Glom Filt Rate - Afr Amer 73 mL/min (>60); Globulin 3.9 g/dL (2.2-4.2); Glucose 100 mg/dL (74-106); Potassium 4.1 mmol/L (3.5-5.1); Protein, Total 7.1 g/dL (6.4-8.2); Sodium Level 135 mmol/L (136-145)
== END | disposition home or self-care (01) ==
LOC: LAB 13:20
PROVIDERS: PCP Family Medicine Geriatric Medicine; Referring Provider Internal Medicine Rheumatology; Visit Provider Internal Medicine Rheumatology
DX: M06.4 Inflammatory polyarthropathy (principal); R76.8 Other specified abnormal immunological findings in serum; M19.041 Primary osteoarthritis, right hand; Z79.899 Other long term (current) drug therapy
CPT/HCPCS: 36415; 80053; 85025

== ENCOUNTER → 2022-06-18 | Outpatient (CLI) | payer MEDICARE, SELFPAY ==
--- NOTE | 2022-06-18 | IMM_PTH ---
PATIENT: OSMIN DAN LOC: [facility] U#:[id number] AGE/SX: 71/F ROOM: RE06/18/[address]: CHELO MOREIRA MD : 1950 BED: DIS: 06/18/2022 SPEC #: [id number] RECD: 06/24/22 13:45 STATUS: SOUCaterina REQ #: [id number] MOOK: 06/18/22 00:[address]: CHELO MOREIRA DEPT: IMMUNOHISTOCHEMISTRY RECD BY: Emeli Mcdonald ENTERED: 06/24/22 13:46 SP TYPE: IMMUNO OTHR DR: Dr. Walter Emanuel MD Tissues: Mouth, NOS Procedures: p16 (initial) KI-67 (add) PHYSICIAN & INSTITUTION [place] [address] SPECIMEN INFORMATION: Tissue Source: Floor of mouth mucosa Clinical Info: Swelling and pain Specimen Number: [id number] CPT code: 35814, 13529 METHODOLOGY: Deparaffinized sections of prefer/formalin-fixed tissue or PAP/DQ stained slides are incubated with monoclonal/polyclonal antibodies/oligonucleotide probes. Localization is made via biotin free immunoperoxidase method. Appropriate controls are performed and reacted as expected. Results on target cell population are indicated in the following table: RESULTS: ANTIBODY / CLONE RESULT P16 (E6H4) positive, patchy staining Ki-67 (30-9) positive, moderate These tests were developed and their performance characteristics determined by [facility]. They may not have been cleared or approved by the U.S. Food and Drug Administration. The FDA has determined that such clearance or approval is not necessary. The above immunohistochemical/dualISH markers are ordered and reviewed by the Pathologist. 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 KATHRYN:lisa 06/25/2022
--- NOTE | 2022-06-18 | LES_PTH ---
PATIENT: OSMIN DAN LOC: [facility] U#:[id number] AGE/SX: 71/F ROOM: RE06/18/[address]: CHELO MOREIRA MD : 1950 BED: DIS: 06/18/2022 SPEC #: [id number] RECD: 06/18/22 15:14 STATUS: SHU REAnthony #: [id number] MOOK: 06/18/22 00:[address]: CHELO MOREIRA DEPT: SURGICAL PATHOLOGY RECD BY: Allie Garza ENTERED: 06/19/22 12:28 SP TYPE: Lesion OTHR DR: Dr. 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 Moderate chronic inflammation. See comment. SJ:lisa 06/22/2022 SJ:lisa 06/24/2022 COMMENT Invasive carcinoma cannot be excluded. Correlation with clinical findings and appropriate follow up are necessary. Results from immunohistochemistry ([id number]) for surrogate HPV marker (p16) will be reported separately. The results are reported to Dr. Moreira?s nurse on 06/24/2022. This case was reviewed and diagnosis discussed with Dr. Moreira on 06/25/2022. Case has been reviewed in consultation with Dr. Abel who concurs with the above diagnosis. IDC:AM MICROSCOPIC DESCRIPTION Slides are reviewed. GROSS DESCRIPTION Received is one container labeled with the patient's name and not further designated. The specimen consists of three variable sized pieces of meza mucosal tissue that in aggregate measure 1.5 x 0.5 x 0.2 cm. The specimen is totally submitted in one cassette. / KATHRYN:lisa 06/19/2022 TC:0 CPT: 30437 ADDENDUM ADDENDUM ADDENDUM ADDENDUM ADDENDUM ADDENDUM ADDENDUM ADDENDUM ADDENDUM ADDENDUM 08/06/2022 11:10 ADDENDUM 08/06/2022 11:10 ADDENDUM 08/06/2022 11:10 ADDENDUM 08/06/2022 11:10 ADDENDUM 08/06/2022 11:10 This addendum is added to incorporate an outside pathology consultation report. The case was examined at [facility] (#[id number]) and the following diagnosis was rendered. Floor of mouth mucosa, incisional biopsy: High grade dysplasia. Please see complete above mentioned consultation report in EMR
--- NOTE | 2022-06-18 | LES_PTH ---
PATIENT: OSMIN DAN LOC: [facility] U#:[id number] AGE/SX: 71/F ROOM: RE06/18/[address]: CHELO MOREIRA MD : 1950 BED: DIS: 06/18/2022 SPEC #: [id number] RECD: 06/18/22 15:14 STATUS: SHU REAnthony #: [id number] MOOK: 06/18/22 00:[address]: CHELO MOREIRA DEPT: SURGICAL PATHOLOGY RECD BY: Allie Garza ENTERED: 06/19/22 12:28 SP TYPE: Lesion OTHR DR: Dr. Walter Emanuel MD Tissues: Oral cavity, NOS Procedures: Surgery Specimen Level IV HEADER OPERATION: Incisional biopsy of floor of mouth mucosa PRE-OP DIAGNOSIS: Swelling and pain TISSUE SUBMITTED: Floor of mouth mucosa MICROSCOPIC DIAGNOSIS Floor of mouth mucosa, incisional biopsy: Fragments of squamous mucosa with moderate chronic inflammation. Negative for malignancy. See comment. SJ:lisa 06/22/2022 COMMENT Minor salivary gland tissue is also noted. Correlation with clinical findings and appropriate follow up are necessary. MICROSCOPIC DESCRIPTION Slides are reviewed. GROSS DESCRIPTION Received is one container labeled with the patient's name and not further designated. The specimen consists of three variable sized pieces of meza mucosal tissue that in aggregate measure 1.5 x 0.5 x 0.2 cm. The specimen is totally submitted in one cassette. / KATHRYN:lisa 06/19/2022 TC:3 CPT: 95945
== END | disposition home or self-care (01) ==
LOC: LABSPEC 15:31
PROVIDERS: PCP Family Medicine Geriatric Medicine; Referring Provider Dentist Oral and Maxillofacial Surgery; Visit Provider Dentist Oral and Maxillofacial Surgery
DX: K12.1 Other forms of stomatitis (principal)
CPT/HCPCS: 88305; 88341; 88342

== ENCOUNTER 2022-06-26 07:00 | Day surgery (SDC) | payer MEDICARE, SELFPAY ==
--- NOTE | 2022-06-26 | BON_PTH ---
PATIENT: OSMIN DAN [place] [facility] [place][id number] AGE/SX: 71/F ROOM: RE06/26/[address]: Dr. Joo Fox DPM : 1950 BED: DIS: 06/26/2022 SPEC #: [id number] RECD: 06/26/22 14:05 STATUS: SHU REQ #: [id number] MOOK: 06/26/22 00:[address]: Joo Fox DEPT: SURGICAL PATHOLOGY RECD BY: Tres Reyes ENTERED: 06/29/22 11:31 SP TYPE: Bone OTHR DR: Dr. Walter Emanuel MD Tissues: Bone of foot, NOS Procedures: Decalcification bone/plaque Surgery Specimen Level IV HEADER OPERATION: Second toe amputation at metatarsophalangeal joint PRE-OP DIAGNOSIS: Rheumatoid arthritis, hammertoe left second toe TISSUE SUBMITTED: Left second toe MICROSCOPIC DIAGNOSIS Left second toe, amputation: Portion of toe with skin and underlying bone and detached fragment of tendinous tissue and bone with reactive changes, clinically hammertoe left second toe. See comment. KATHRYN:lisa 07/02/2022 COMMENT Changes consistent with rheumatoid arthritis are not seen. MICROSCOPIC DESCRIPTION Slides are reviewed. GROSS DESCRIPTION Received in fixative is one container labeled with the patient's name and designated left second toe. The specimen consists of two fragments of bone with attached soft tissue ranging in size from 2.5 to 3.5 cm. The distal toe contains a nail. The bony and soft tissue margins of resection are grossly unremarkable. Also present in the specimen container is a fragment of tendinous tissue measuring 2.6 x 0.7 x 0.2 cm. Parent Partner sections are submitted in two cassettes after decalcification as follows: 1??longitudinal section of entire toe with nail, 2 - second fragment of bone and tendinous tissue. / AM:lisa 06/29/2022 TC:5 CPT: 44807, 89064
[2022-06-26] MEDS: Lactated Ringers 1,000 ML 15 ML IV (07:33)
[2022-06-26 07:34] VITALS: BP 131/54; PULSE 78; RESP 17; TEMP 37; O2SAT 91; BMI 27.6
--- NOTE | 2022-06-26 08:34 | RAD_ITS ---
EXAM: XR Toes Min 2 Views HISTORY: LT 2ND TOE AMPUTATION COMPARISON: 2019 Technique: 2 fluoroscopic images obtained, fluoroscopy time is 3 seconds, radiation dose of 0.136mGy FINDINGS: Fluoroscopy provided for Dr. Fox during amputation of the phalanges of the second toe. RAD/Toe(s) Min 2 Views IMPRESSION: No intraoperative complications noted during amputation of the phalanges of the second toe Electronically Signed: William Wright MD at 10:19 EDT ,
[2022-06-26] MEDS: Cefazolin 2 GM in 0.9% Normal Saline 100 ML IV (09:08)
[2022-06-26] MEDS: Bupivacaine Mpf 0.5% 30 ML VIAL (09:27)
[2022-06-26 09:50] VITALS: BP 117/50; BP 131/54; PULSE 93; RESP 16; TEMP 36.6; O2SAT 95
--- NOTE | 2022-06-26 09:52 | OP.PCM_ITS ---
Problems Associated Problem List Diagnoses (1) Rheumatoid arthritis involving foot with positive rheumatoid factor: (2) Other hammer toe(s) (acquired), left foot: (3) Toe pain, left: Report of Operation Date of Procedure: 06/26/22 Pre-Operative Diagnosis: 1. Left second digit hammertoe 2. Left second toe pain 3. Rheumatoid arthritis left foot 4. Hallux abductovalgus overlapping second toe left foot Post-Operative Diagnosis: Same Surgery/Procedure Performed:: Amputation left second digit at the metatarsophalangeal joint Description of Surgical Findings:: Discussed patient multiple options for treatment preoperatively including observation conservative treatment as well as surgical reconstruction of the forefoot addressing her bunion deformity via first MPJ fusion and hammertoe correction with possible metatarsal head resection due to her rheumatoid arthritis. Patient deferred this due to prolonged recovery time and opted for elective amputation of her second digit for pain management as this is the primary source of her pain and discomfort in the forefoot. Surgeon: Joo Fox plastics fabrication supervisor: None (wilfrido perkins) Type of Anesthesia: Local MAC Special Medications: 30 cc 0.25% Marcaine plain Specimen's removed: Left second toe taken sent to path Drains: None Estimated Blood Loss (mL): Minimal Description of Procedure: Patient brought back to the operating placed comfortably in supine position operating room table. All osseous prominences offloaded prevent any compression neuropraxia's. Patient induced under MAC anesthesia. Left second toe standard digital block performed with 0.25% Marcaine plain. 10 cc used. Left hip bump placed. Left ankle tourniquet applied well-padded. Left lower extremity scrubbed prepped draped using typical aseptic fashion. Left lower extremity was elevated exsanguinated tourniquet was inflated to 250 mmHg. Total tourniquet time at the end of case was noted to be 11 minutes. For distal fishmouth incision was made full-thickness down to level of metatarsal phalangeal joint and the digit was disarticulated at the metatarsophalangeal joint while blunt retraction using atraumatic technique was used to protect adjacent neurovascular structures. Second toe was sent to pathology. Incisional site was flushed with copious amounts of normal sterile saline and closed with simple interrupted 4-0 nylon. Tourniquet was deflated. Incisional site was dressed with bacitracin Adaptic 4 x 4's Kerlix and Christopher bandage. Prior to application of the dressing additional 20 cc 0.25% Marcaine plain were bere lied using standard digital block technique. Patient transferred to PACU vital signs stable vascular status intact all digits for further monitoring prior to discharge patient tolerated anesthesia procedure well apparent satisfactory condition will follow-up in 1 week for continued care
[2022-06-26 09:55] VITALS: BP 113/52; BP 131/54; PULSE 92; RESP 16; O2SAT 94
[2022-06-26 10:00] VITALS: BP 117/63; BP 131/54; PULSE 86; RESP 16; O2SAT 94
[2022-06-26 10:05] VITALS: BP 119/74; BP 131/54; PULSE 78; RESP 16; TEMP 36.4; O2SAT 97
[2022-06-26 10:32] VITALS: BP 131/54
== END 2022-06-26 11:11 | disposition home or self-care (01) ==
LOC: SDC 07:00 → AC 07:02
PROVIDERS: PCP Family Medicine Geriatric Medicine; Referring Provider Podiatrist; Visit Provider Podiatrist
PROC: (CPT 28820; principal; 2022-06-26 08:30)
DX: M20.42 Other hammer toe(s) (acquired), left foot (principal); M05.872 Other rheumatoid arthritis with rheumatoid factor of left ankle and foot; M20.12 Hallux valgus (acquired), left foot; I10 Essential (primary) hypertension; E78.5 Hyperlipidemia, unspecified; E04.1 Nontoxic single thyroid nodule; M10.9 Gout, unspecified; Z79.899 Other long term (current) drug therapy
CPT/HCPCS: 28820; 01480; 73660; 76000; 88304; 88305; 88311; J7120; J2405

== ENCOUNTER → 2022-07-08 | Outpatient (CLI) | payer MEDICARE, SELFPAY ==
[2022-07-08 16:23] LABS: Absolute Lymphocyte Count 1.45 X10^3/uL (0.83-4.51); Absolute Neutrophil Count 7.8 X10^3/uL (2.0-7.7); Basophil# 0.05 X10^3/uL; Basophil% 0.5 % (0-1); Eosinophil# 0.06 X10^3/uL; Eosinophils% 0.6 % (0-5); Hematocrit 37.7 % (37-47); Hemoglobin 11.3 g/dL (12.0-15.0); Lymphocyte # 1.45 X10^3/ul (0.83-4.51); Lymphocyte % 14.2 % (19-41); Mean Corpuscular Hgb 29.3 pg (27.0-32.0); Mean Corpuscular Volume 97.7 fL (81-99); Mean Platelet Vol. 9.7 fl (6.2-12.0); Monocyte# 0.79 X10^3/uL; Monocyte% 7.7 % (0-10); NRBC Flagged by Analyzer 0 % (0-5); Neutrophil # 7.83 X10^3/uL (2.7-7.7); Neutrophil % 76.4 % (47-70); Platelet Count 435 K/mm3 (150-450); RBC Distribution Width CV 14.9 % (11.6-14.6); Red Blood Count 3.86 M/mm3 (4.2-5.4); White Blood Count 10.2 K/mm3 (4.4-11.0)
[2022-07-08 16:31] LABS: Vitamin D,25 Hydroxy 41.7 ng/mL
[2022-07-08 16:44] LABS: ALB/GLOB Ratio 0.8 RATIO (0.9-2.4); AST(SGOT) 17 U/L (15-37); Alanine Aminotransfer ALT/SGPT 20 U/L (13-56); Albumin, Serum 3.2 g/dL (3.2-5.0); Alkaline Phosphatase 129 U/L (45-117); Anion Gap 6 (5-15); BUN 28 mg/dL (7-18); BUN/Creat Ratio 35.2 RATIO (10-20); Calcium,Total 9.3 mg/dL (8.5-10.1); Chloride 106 mmol/L (98-107); Cholesterol 132 mg/dL (200); EST Glomerular Filtration Rate 75 mL/min (>60); Est Glom Filt Rate - Afr Amer 91 mL/min (>60); Globulin 4.1 g/dL (2.2-4.2); Glucose 76 mg/dL (74-106); High Density Lipoprotein 43 mg/dL; Potassium 4.3 mmol/L (3.5-5.1); Protein, Total 7.3 g/dL (6.4-8.2); Sodium Level 136 mmol/L (136-145); Thyroid Stim Hormone (TSH) 1.16 uIU/mL (0.358-3.74); Triglycerides 148 mg/dL; Uric Acid 2.9 mg/dL (2.6-6.0); Very Low Density Lipoprotein 30 mg/dL (5-40)
== END | disposition home or self-care (01) ==
LOC: POLAB3 13:29
PROVIDERS: PCP Family Medicine Geriatric Medicine; Visit Provider Family Medicine Geriatric Medicine
DX: I10 Essential (primary) hypertension (principal); E55.9 Vitamin D deficiency, unspecified; M10.9 Gout, unspecified
CPT/HCPCS: 36415; 80053; 80061; 82306; 84443; 84550; 85025

== ENCOUNTER → 2022-09-17 | Outpatient (CLI) | payer MEDICARE, SELFPAY ==
--- NOTE | 2022-09-17 17:15 | MRI_ITS ---
STUDY: MRI BRAIN WITH AND WITHOUT CONTRAST REASON FOR EXAM: Female, 71 years old. stage III NSCLC -- eval for brain mets TECHNIQUE: Standardized multiplanar fat and water weighted pulse sequences were obtained. IV 13ML Clariscan was administered for the contrast portion of the examination. COMPARISON: None. FINDINGS: Normal size of the ventricles and extra-axial spaces for the patient''s age. Mild nonspecific periventricular white matter disease most likely small vessel ischemia in patient of this age although other etiology not excluded. No restricted diffusion to suggest acute ischemia.. Normal bilateral basal ganglia. Normal thalami. There is no extra-axial fluid accumulation. Normal flow voids within the major intracranial circulation suggesting patency by spin echo criteria. Normal venous enhancement. There is no enhancing intra-axial or extra-axial abnormality. Normal sella turcica, pituitary gland, infundibular stalk, optic chiasm and hypothalamus. Normal tectal plate and pineal gland. Normal midbrain, moni and medulla. Normal cerebellum. Normal basal cisterns. Normal bilateral temporal bones. Normal bilateral internal auditory canals. Postsurgical changes of the orbits. Normal visualized paranasal sinuses. Normal calvarium and skull base. Normal visualized soft tissue structures. Normal visualized upper cervical spine. MRI/Brain W/WO Contrast IMPRESSION: Nonspecific periventricular white matter disease. No evidence for acute infarct or metastatic disease Electronically Signed: Matteo Awan MD at 19:04 EDT ,
== END | disposition home or self-care (01) ==
PROVIDERS: PCP Family Medicine Geriatric Medicine
DX: C34.92 Malignant neoplasm of unspecified part of left bronchus or lung (principal); C77.1 Secondary and unspecified malignant neoplasm of intrathoracic lymph nodes
CPT/HCPCS: 70553; 77014; 82565; A9575; Q9967; A4216

== ENCOUNTER 2022-10-01 05:53 | Day surgery (SDC) | payer MEDICARE, SELFPAY ==
--- NOTE | 2022-09-29 12:26 | EKG12_ITS ---
Test Reason : SURGERY Blood Pressure : / mmHG Vent. Rate : 117 BPM Atrial Rate : 300 BPM P-R Int : 000 ms QRS Dur : 118 ms QT Int : 370 ms P-R-T Axes : 000 -35 101 degrees QTc Int : 516 ms Atrial fibrillation with rapid ventricular response ,interspersed with MAT Left axis deviation Cannot rule out Inferior infarct , age undetermined Cannot rule out Anterior infarct , age undetermined Abnormal ECG No previous ECGs available Confirmed by DANG DONIS, NAHUM ([id number]), school photograph editor WILBER RIVERA ([id number]) on 09/29/2022 2:16:22 PM Referred By: Jefferson Gunn Confirmed By:NAHUM LEONG MD
[2022-10-01] VITALS (7 sets, daily range): BP systolic 113–147; BP diastolic 61–77; PULSE 81–92; RESP 16; TEMP 36.2–36.8; O2SAT 92–96; BMI 25.2
--- NOTE | 2022-10-01 | RAD_ITS ---
INDICATION: Line placement EXAMINATION/TECHNIQUE: X-RAY - XR Chest 1 View COMPARISON: FINDINGS: LINES/DEVICES: There is a right-sided MediPort noted with tip projecting over the SVC. LUNGS: No consolidation, edema. There is a possible small left pleural effusion. No pneumothorax. MEDIASTINUM AND CARDIOVASCULAR STRUCTURES: Cardiac silhouette not enlarged. Central airways and mediastinal contour are unremarkable. BONES AND SOFT TISSUES: Unremarkable. RAD/Chest 1 View (Portable) IMPRESSION: No radiographic evidence of acute cardiopulmonary disease. Line placement as described. Possible small left effusion. Electronically Signed: Joo Trimble, at 8:32 EDT ,
--- NOTE | 2022-10-01 06:33 | PCM.HP.BLA ---
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 Required: No Is patient in pain?: No Allergies No Known Allergies Allergy (Verified 09/22/22 13:08) Medications atorvastatin 40 mg tablet 40 mg PO DAILY #90 tabs 02/20/19 [History Confirmed 09/22/22] avmrpvom-qdowqbt-jxnp-lutein tablet 1 tab PO DAILY 02/20/19 [History Confirmed 09/22/22] allopurinol 300 mg tablet 300 mg PO DAILY 08/02/20 [History Confirmed 09/22/22] leucovorin calcium 15 mg tablet 15 mg PO TH 07/28/21 [History Confirmed 09/22/22] metoprolol succinate 50 mg tablet,extended release 24 hr See Rx Instructions .Route .COMPLEX #90 tabs 07/15/22 [Rx Confirmed 09/22/22] acetaminophen 325 mg tablet 650 mg PO Q6H PRN 09/03/22 [History Confirmed 09/22/22] folic acid 1 mg tablet 2 mg PO DAILY 09/03/22 [History Confirmed 09/22/22] gabapentin 300 mg capsule 600 mg PO DAILY 09/03/22 [History Confirmed 09/22/22] hydroxychloroquine 200 mg tablet 200 mg PO DAILY 09/03/22 [History Confirmed 09/22/22] losartan 100 mg tablet 100 mg PO DAILY 09/03/22 [History Confirmed 09/22/22] methotrexate sodium 2.5 mg tablet 2.5 mg PO QWEEK 09/03/22 [History Confirmed 09/22/22] potassium gluconate 595 mg (99 mg) tablet 595 mg PO DAILY 09/03/22 [History Confirmed 09/22/22] lidocaine 4 % topical patch (Aspercreme (lidocaine)) 1 patch topical DAILY PRN 09/17/22 [History Confirmed 09/22/22] lidocaine-prilocaine 2.5 %-2.5 % topical cream 1 applic topical ONCE PRN port access 30 days #30 grams 09/17/22 [Rx Confirmed 09/22/22] ondansetron 8 mg disintegrating tablet 8 mg PO Q8H PRN nausea and vomiting #30 tabs 09/17/22 [Rx Confirmed 09/22/22] PFS Medical History Abdominal aortic aneurysm (AAA) Arthritis Breast cancer Cancer Cardiology follow-up encounter Ductal carcinoma in situ (DCIS) of left breast Encounter for education Essential (primary) hypertension Estrogen receptor positive status (ER+) Former smoker Gout History of breast cancer History of echocardiogram History of stress test Hyperlipidemia Hypertension Malignant neoplasm of unspecified site of right female breast Nontoxic single thyroid nodule Obesity Vitamin D deficiency Wears dentures Wears glasses Surgical History Amputated toe of left foot H/O mastectomy H/O: hammer toe correction History of colonoscopy (~2019) History of excision of lesion History of hysterectomy History of oral surgery S/P AAA (abdominal aortic aneurysm) repair S/P breast lumpectomy Family History Father , 58 Lung cancerMother Breast cancerSister Breast cancer Social History Smoking Status: Former smoker quit date: 03/15/12 pack-years: 39 alcohol intake: current alcohol intake frequency: a few times a week Alcohol type: beer and wine substance use type: does not use HPI HPI HPI: 71-year-old female with 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 She is referred by Dr. Ck Pringle and Roya Jane NP-C for surgical consultation regarding venous access device placement. A written copy of my surgical consult recommendations will return to them. She is to start chemotherapy tomorrow. It is felt that she has adequate veins for that. She has not had a previous port. ROS General General: Yes breast cancer; No weight change, appetite, fatigue, colon cancer or weakness HEENT HEENT: Yes eye surgery; No difficulty swallowing, eye injury, swollen glands or hoarseness Endo Endocrine: No thyroid disease, diabetes mellitus, thyroid cancer, Hair loss, heat intolerance or cold intolerance Breast Breast: No left breast lump, right breast lump, nipple discharge, breast pain, abnormal mammogram, abnormal US or breast enlargement Musc Musculoskeletal: Yes back problems, arthritis and rheumatoid arthritis; No gout or joint pain Cardio Cardiovascular: No murmur, pacemaker, heart disease, atrial fibrillation, high blood pressure, heart attack, heart stent, palpitations, shortness of breat with exertion or chest pain Psych Psychiatric: No depression, anxiety or hearing voices Gastro Gastrointestinal: No abdominal pain, No nausea or vomiting, No diarrhea, No constipation, No blood in stool, No acid reflux, No hemorrhoids, No ulcers, No gallbladder problem and No black,tarry stools Eros Hematologic: No blood thinners, No blood disorders, No bleeding, No anemia and No blood clots Neuro Neurologic: No weakness Exam Const General: cooperative, healthy appearing, comfortable and no acute distress [facility] Head: normal to inspection Eyes General: appearance normal, both eyes and all related structures Neck Neck: normal visual inspection Chest Chest palpation & inspection: normal inspection of the chest Resp Effort & Inspection: normal respiratory effort Auscultation: clear to auscultation bilaterally Cardio Rate: regular rate Rhythm: regular rhythm GI Inspection: normal to inspection Palpation: no hepatosplenomegaly Auscultation: normal bowel sounds Musc Cervical Spine: normal cervical lordosis Skin Other: Right patellar area there is a superficial eschar measuring approximately 3 and half by 2 and half centimeters. Neuro General: patient alert, patient awake and patient oriented x3 Extrem General: no calf tenderness Psych Appearance: grossly normal Assessment and Plan Assessment and Plan (1) Primary oral squamous cell carcinoma: Status: Acute Plan: I recommended the patient a right internal jugular port placement and I described the technique, benefit, risk, alternatives. She has had an opportunity to ask the questions answered. We will scribed to schedule and proceed at earliest opportunity. She is starting her chemotherapy tomorrow. I did asked the patient that she stop by hematology oncology today to demonstrate to them her abrasion of her right knee area. I wanted to assure that they felt comfortable proceeding on with her chemo and verbal report that I have received is that they are. We will therefore look for a tentative procedure date placed to her port. I appreciate the opportunity of assisting with her surgical care Copy: DAYO Trevizo and Dr. Ck Pringle and Dr. Walter Gunn M.D., F.A.C.S I have examined the patient and the H&P has been reviewed. There are no clinical changes since date of exam.
--- NOTE | 2022-10-01 06:34 | DCINST_ITS ---
Discharge Instructions Procedure Port-A-Cath Diet Discharge Diet: No restrictions (Pain medication may cause nausea. You should typically eat light foods as you take your pain medication.) Activity Discharge Activity: Return to Normal Activity and May Shower (Leave the bandage on for 2-3 days. When you remove the bandage, leave the steri-strips intact until they fall off.) Additional Activity Instructions:: May not drive, work with heavy equipment, or sign legal documents for [address]. [address] if you are no longer taking narcotic pain medications. You may drive when you are no longer taking pain medications. Dressing / Incision Additional Dressing/Incision Instructions:: Leave the bandage on for 2-3 days. When you remove the bandage, leave the steri-strips intact until they fall off. Follow Up Care Please Follow Up With: Jefferson Gunn MD When: Call [phone] to make an appointment to be seen in 7 days. Test Results: Test results from this visit will be discussed in further detail at your follow- up appointment, if applicable. Discharge Plan Admission Attending Provider: Jefferson Gunn Primary Care Provider: Walter Emanuel Chi Discharge Orders/Prescriptions Prescriptions: No Action atorvastatin 40 mg tablet 40 mg PO DAILY Qty: 90 qkxwhwaf-xkanvbf-pgof-lutein Tablet 1 tab PO DAILY allopurinol 300 mg tablet 300 mg PO DAILY folic acid 1 mg tablet 2 mg PO DAILY leucovorin calcium 15 mg tablet 15 mg PO TH gabapentin 300 mg capsule 300 mg PO QHS hydroxychloroquine 200 mg tablet 200 mg PO DAILY losartan 100 mg tablet 100 mg PO DAILY methotrexate sodium 2.5 mg tablet 20 mg PO WE potassium gluconate 595 mg (99 mg) tablet 595 mg PO DAILY acetaminophen 325 mg tablet 650 mg PO Q6H PRN (Reason: pain) lidocaine [Aspercreme (lidocaine)] 4 % adhesive patch,medicated 1 patch topical DAILY PRN (Reason: pain) ondansetron 8 mg tablet,disintegrating 8 mg PO Q8H PRN (Reason: nausea and vomiting) Qty: 30 2RF lidocaine-prilocaine 2.5-2.5 % cream 1 applic topical ONCE PRN (Reason: port access) 30 Days Qty: 30 2RF gabapentin 100 mg capsule 100 mg PO DAILY metoprolol succinate 50 mg tablet extended release 24 hr 50 mg PO BID Qty: 60 6RF Referrals / Follow Up: Walter Emanuel Chi, MD [Primary Care Provider] - Disposition Disposition (needs filled in before D/C Order can be placed): Home, Self Care
[2022-10-01] MEDS: Lactated Ringers 1,000 ML 15 ML IV (06:50)
[2022-10-01] MEDS: Cefazolin 2 GM in 0.9% Normal Saline 100 ML IV (07:24)
[2022-10-01] MEDS: Lidocaine 1% (20 ml mdv) 20 ML Vial (07:42)
[2022-10-01] MEDS: Bupivacaine 0.5% PF 10 ML VIAL (07:42)
--- NOTE | 2022-10-01 08:03 | OP.PCM_ITS ---
Report of Operation Date of Procedure: 10/01/22 Pre-Operative Diagnosis: Oral squamous cell carcinoma Post-Operative Diagnosis: Same Surgery/Procedure Performed:: Right internal jugular 6 [place]ic Reference [id number], lot [id number] expiry date 05/12/2024 Description of Surgical Findings:: Timeout informed consent was obtained. 71-year-old female was taken to the operating placed on the table underwent monitored anesthesia care. Ancef 2 g given intravenously. The right neck chest sterilely prepped and draped. 1% lidocaine mixed 50-50 with 0.5% Marcaine was used as a local anesthetic. Throughout the procedure a total of 18 cc was used. Under ultrasound guidance local was instilled over the right internal jugular vein followed by micropuncture access micropuncture wire micropuncture sheath 035 J-wire exchange local instilled down on the right infraclavicular chest wall and then a transverse incision created mid clavicular space second costal space electrocautery was used to make a subcutaneous pocket the tubing was tunneled from the chest to the neck site sheath dilator was placed over the wire confirmed by fluoroscopy the wire and dilator removed the catheter was advanced through the sheath the sheath was split the cath was positioned at the SVC atrial junction it was connected the port secured there with a port attachment device port was placed in the pocket secured there with 2-0 silk the port site was closed with interrupted 3-0 Vicryl subdermal stitches the neck site was closed with interrupted 5-0 Vicryl subdermal stitches Steri-Strips Telfa OpSite dressings applied sponge and instrument and needle counts were reported to the surgeon to be correct this Specimens none. Drains none. Blood loss minimal The patient tolerated the procedure well was taken to the recovery room in satisfactory addition. Stat portable chest x-ray is pending. Jefferson Gunn M.D., F.A.C.S. Surgeon: Jefferson Gunn Type of Anesthesia: Local MAC Anesthesiologist: Caro Leyva
--- NOTE | 2022-10-01 08:26 | SUR.PHASEI ---
dr falcon observed cxr at bedside - looks good pt may have snack
--- NOTE | 2022-10-01 09:08 | SUR.PHASEII ---
PT MEETS ALL CRITERIA FOR D/C VSS PT VOIDED IN RR. NO PAIN OR NAUSEA. PER DR. KATHY Suresh OK TO ENTER A D/C ORDER FOR THE PT.
== END 2022-10-01 09:12 | disposition home or self-care (01) ==
LOC: SDC 05:53 → AC 05:54
PROVIDERS: PCP Family Medicine Geriatric Medicine; Referring Provider Surgery; Visit Provider Surgery
PROC: (CPT 36561; principal; 2022-10-01 07:15)
DX: Z45.2 Encounter for adjustment and management of vascular access device (principal); C78.00 Secondary malignant neoplasm of unspecified lung; C77.9 Secondary and unspecified malignant neoplasm of lymph node, unspecified; C04.1 Malignant neoplasm of lateral floor of mouth; I10 Essential (primary) hypertension; E78.5 Hyperlipidemia, unspecified; Z87.891 Personal history of nicotine dependence
CPT/HCPCS: 36561; 71045; 77001; 93005; J7120

== ENCOUNTER → 2022-11-17 | Outpatient (CLI) | payer MEDICARE, SELFPAY ==
--- NOTE | 2022-11-17 13:43 | ECHOD_ITS ---
Reason For Study: Afib/Flutter Procedure This was a 2D Doppler, Color Flow transthoracic echocardiogram. Myocardial strain analysis was performed in this exam to aid in the assessment of cardiac function. The study was technically difficult. Exam performed in department. Left Ventricle Normal LV size. Mild concentric left ventricular hypertrophy. Left ventricular systolic function is normal. The estimated ejection fraction is 60 %. Stage 1 diastolic dysfunction. No regional wall motion abnormalities noted. Right Ventricle Normal RV size. Normal systolic function. Atria Normal left atrium. Normal right atrium. Mitral Valve Normal mitral valve. Tricuspid Valve Normal tricuspid valve. Aortic Valve Normal aortic valve. Trisinus/trileaflet aortic valve. Pulmonic Valve The pulmonic valve is not well visualized. Great Vessels Normal aortic root. The pulmonary artery is normal size. Normal inferior vena cava. Pericardium/Pleural No pericardial effusion. MMode/2D Measurements & Calculations LVIDd: 4.6 cm IVSd: 1.3 cm Ao root diam: 3.3 cm LVIDs: 3.5 cm LVPWd: 1.3 cm LA dimension: 4.3 cm RVDd: 3.6 cm FS: 25.6 % LAV(MOD-bp): 58.1 ml LA A4 area: 17.5 cm2 RA A4 area: 14.7 cm2 LAV(MOD-bp) Indexed: 35.4 ml/m2 LAV(MOD-sp2): 66.8 ml LAV(MOD-sp4): 49.7 ml TAPSE: 2.1 cm Time Measurements MV dec time: 0.18 sec Doppler Measurements & Calculations MV E max darryl: 68.4 cm/sec Lat Peak E' Darryl: 5.8 cm/sec Med Peak E' Darryl: 5.6 cm/sec MV A max darryl: 92.8 cm/sec E/E' lat: 11.8 E/E' med: 12.3 MV E/A: 0.74 MV V2 max: 106.1 cm/sec MV P1/2t max darryl: 79.6 cm/sec Ao V2 max: 132.6 cm/sec MV max P.5 mmHg MV P1/2t: 63.5 msec Ao max P.0 mmHg MV V2 mean: 60.1 cm/sec Ao V2 mean: 92.9 cm/sec MV mean P.7 mmHg MV dec slope: 366.9 cm/sec2 Ao mean P.9 mmHg MV V2 VTI: 20.9 cm MVA(P1/2t): 3.5 cm2 Ao V2 VTI: 32.3 cm AV (velocity ratio): 0.79 LV V1 max: 107.3 cm/sec PA V2 max: 95.2 cm/sec LV V1 max P.6 mmHg PA V2 mean: 66.8 cm/sec LV V1 mean P.7 mmHg LV V1 mean: 77.3 cm/sec LV V1 VTI: 25.7 cm ECHO/Echo Complete Interpretation Summary Normal LV size. Mild concentric left ventricular hypertrophy. Left ventricular systolic function is normal. The estimated ejection fraction is 60 %. Stage 1 diastolic dysfunction. The global longitudinal strain = -20.3 % (normal). Ordering Physician: Sunita Verma Referring Physician: Sunita Verma Performed By: Fortino Saucedo RCS
== END | disposition home or self-care (01) ==
LOC: CVS 13:41
PROVIDERS: PCP Family Medicine Geriatric Medicine; Referring Provider Nurse Practitioner Gerontology; Visit Provider Nurse Practitioner Gerontology
DX: Z01.810 Encounter for preprocedural cardiovascular examination (principal); I48.91 Unspecified atrial fibrillation
CPT/HCPCS: 93306

== ENCOUNTER 2022-11-18 09:10 | Outpatient (RCR) | payer MEDICARE, SELFPAY | END 2022-12-12 23:59 | LOC: NS 09:10 | PROVIDERS: PCP Family Medicine Geriatric Medicine; Visit Provider Student in an Organized Health Care Education/Training Program | DX: C34.92 Malignant neoplasm of unspecified part of left bronchus or lung (principal) ==

== ENCOUNTER 2022-11-19 09:57 | Emergency (ER) | payer OTHER, MEDICARE, SELFPAY ==
[2022-11-19 09:58] VITALS: BP 166/70; PULSE 78; RESP 14; TEMP 36.4; O2SAT 98; BMI 23.9
[2022-11-19 10:01] VITALS: BP 166/70; PULSE 89; RESP 14; TEMP 36.4; O2SAT 98; BMI 24.0
--- NOTE | 2022-11-19 10:41 | CT_ITS ---
STUDY: CT FACIAL BONES WITHOUT CONTRAST REASON FOR EXAM: Female, 71 years old. Facial trauma RADIATION DOSAGE (If Supplied By Facility): CTDIvol = ( 29.38 ) mGy, DLP = ( 1733.44 ) mGycm TECHNIQUE: The patient was scanned in a multi detector CT scanner. Sagittal and coronal images were reconstructed. Individualized dose optimization techniques were used for this CT. COMPARISON: None. FINDINGS: Scalp hematoma overlying the left frontal bone. Normal orbital andre and orbital contents. Normal nasal bones and anterior nasal spine. Normal facial bones. There is no demonstrated fracture. Nasal septal deviation towards the right side of the midline. Normal visualized paranasal sinuses. CT/Sinus/Facial Bone IMPRESSION: Small scalp hematoma overlying the left frontal bone. Electronically Signed: Joseph Ott MD at 13:23 EDT ,
--- NOTE | 2022-11-19 10:41 | CT_ITS ---
STUDY: CT CERVICAL SPINE WITHOUT CONTRAST REASON FOR EXAM: Female, 71 years old. Polytrauma RADIATION DOSAGE (If Supplied By Facility): CTDIvol = ( 20.19 ) mGy, DLP = ( 1733.44 ) mGycm TECHNIQUE: High resolution transaxial imaging was performed without contrast material. Sagittal and coronal images were reconstructed. Individualized dose optimization techniques were used for this CT. COMPARISON: None FINDINGS: Normal craniovertebral junction. Normal anterior atlantoaxial articulation. Normal odontoid process. There is reversal of the normal cervical lordosis. Normal vertebral bodies and posterior osseous elements. C2-3: Normal endplates. Normal disc height and morphology. Normal central canal and intervertebral neuroforamina. C3-4: Normal endplates. Normal disc height and morphology. Normal central canal and intervertebral neuroforamina. C4-5: Moderate degree of disc space narrowing with spondylosis. C5-6: Marked degree of disc space narrowing with spondylosis. Uncovertebral arthrosis. Moderate degree of bilateral neural foraminal stenosis. C6-7: Marked degree of disc space narrowing and spondylosis. Uncovertebral arthrosis. Moderate degree of bilateral neural foraminal stenosis. C7-T1: Normal endplates. Normal disc height and morphology. Normal central canal and intervertebral neuroforamina. Atherosclerotic plaque formation of the carotid bifurcations. A right-sided portacatheter is seen within the superior vena cava. CT/Spine Cervical without Contras IMPRESSION: Multilevel degenerative changes, as described above. Electronically Signed: Joseph Ott MD at 13:25 EDT ,
--- NOTE | 2022-11-19 10:41 | CT_ITS ---
STUDY: CT BRAIN WITHOUT CONTRAST REASON FOR EXAM: Female, 71 years old. Head injury due to a fall. RADIATION DOSAGE (If Supplied By Facility): CTDIvol = ( 44.99 ) mGy, DLP = ( 1733.44 ) mGycm TECHNIQUE: Transaxial CT imaging of the brain was performed without administration of intravenous contrast material. Individualized dose optimization techniques were used for this CT. COMPARISON: Comparison is made with prior study dated July 12, 2020. FINDINGS: Small scalp hematoma overlying the left frontal bone. Normal calvarium. There is mild cerebral atrophy with widening of the extra-axial spaces and ventricular dilatation. There are areas of decreased attenuation within the white matter tracts of the supratentorial brain, consistent with microvascular disease changes. Stable small hypodensity in the right frontal lobe suggestive of old ischemic change. There are small punctate calcifications of the basal ganglia which are seen in the aging brain as a normal variant. Normal brainstem. Normal cerebellum. There is no intracranial hemorrhage. There are no findings of an acute ischemic infarction. Normal visualized paranasal sinuses. CT/Brain/Head without Contrast IMPRESSION: Chronic involutional changes of the brain. Small scalp hematoma overlying the left frontal bone. Electronically Signed: Joseph Ott MD at 13:15 EDT ,
--- NOTE | 2022-11-19 10:43 | EDS_ITS ---
HPI HPI - Fall History of Present Illness Chief Complaint: Fall Informant: patient Narrative Narrative: Presents by private vehicle evaluation mechanical fall head injury 9 AM at work. Works in the [employer] department, was in the back when she tripped over a pallet hitting her head. No LOC. No anticoagulants. Tetanus unknown. Head abrasions. Left knee pain. History of non-small cell lung cancer metastasis to lymph nodes she finished her chemo treatment 2 weeks ago. Denies chest pains. Denies neck or back pain. Tetanus Immunization: Unknown [facility] Medical History Abdominal aortic aneurysm (AAA) Arthritis Breast cancer Cancer Cardiology follow-up encounter Ductal carcinoma in situ (DCIS) of left breast Encounter for education Essential (primary) hypertension Estrogen receptor positive status (ER+) Former smoker Gout History of breast cancer History of echocardiogram History of stress test Hyperlipidemia Hypertension Malignant neoplasm of unspecified site of right female breast Nontoxic single thyroid nodule Obesity Oral candidiasis Prerenal azotemia Vitamin D deficiency Wears dentures Wears glasses Home Medications atorvastatin 40 mg tablet 40 mg PO DAILY #90 tabs 02/20/19 [History Last Taken 06/25/22] allopurinol 300 mg tablet 300 mg PO DAILY 08/02/20 [History Last Taken 06/25/22] folic acid 1 mg tablet 2 mg PO DAILY 09/03/22 [History Last Taken Unknown] gabapentin 300 mg capsule 300 mg PO QHS 09/03/22 [History Last Taken Unknown] gabapentin 100 mg capsule 100 mg PO DAILY 09/25/22 [History Last Taken Unknown] metoprolol succinate 50 mg tablet,extended release 24 hr 50 mg PO BID #60 tabs 09/30/22 [Rx Last Taken Unknown] Allergy/AdvReac Type Severity Reaction Status Date / Time No Known Allergies Allergy Verified 11/19/22 09:58 Family History Father , 58 Lung cancer Mother Breast cancer Sister Breast cancer Surgical History Amputated toe of left foot H/O mastectomy H/O: hammer toe correction History of colonoscopy (~2019) History of excision of lesion History of hysterectomy History of oral surgery S/P AAA (abdominal aortic aneurysm) repair S/P breast lumpectomy Social History Smoking Status: Former smoker quit date: 03/15/12 pack-years: 39 alcohol intake: current alcohol intake frequency: a few times a week Alcohol type: beer and wine substance use type: does not use ROS ROS ED Constitutional Constitutional ED: Denies chills, fever(s) or sweats Eyes Eyes: Denies change in vision ENT ENT ED: Denies dysphagia or sore throat Cardiovascular Cardiovascular: Denies chest pain, leg edema, palpitations or racing heartbeat Respiratory/Chest Respiratory/Chest: Denies cough, dyspnea or dyspnea on exertion Gastrointestinal Gastrointestinal: Denies abdominal pain, diarrhea, nausea or vomiting Genitourinary Genitourinary ED: Denies dysuria, hematuria or urinary frequency Musculoskeletal Musculoskeletal: Denies back pain, extremity pain or neck pain Integumentary Reports Abrasions; Denies rash or wounds Neurologic Neurologic: Reports headache(s); Denies paresthesias or weakness EXAM Physical Exam Const Vital Signs: 11/19/22 09:58 11/19/22 10:01 11/19/22 10:33 Temperature 97.6 F L 97.6 F L Temperature Source Temporal Temporal Pulse Rate 78 89 Respiratory Rate 14 14 Respiratory Effort Normal Respiratory Depth Normal Respiratory Pattern Normal Blood Pressure 166/70 H 166/70 H Blood Pressure Mean 102 102 Pulse Ox 98 98 Oxygen Delivery Method Room Air Room Air 11/19/22 12:14 11/19/22 14:12 11/19/22 14:13 Temperature Temperature Source Pulse Rate 63 59 L Respiratory Rate 18 17 17 Respiratory Effort Respiratory Depth Respiratory Pattern Blood Pressure 165/61 H 184/66 H Blood Pressure Mean 95 Pulse Ox 98 97 Oxygen Delivery Method Room Air Room Air Positive well nourished and well developed Constitutional Narrative: GCS 15 General Appearance ED: well developed and NAD HEENT Reports moist mucous membranes HEENT Narrative: Left frontal hematoma without abrasion less than 1 cm, no laceration. No hemotympanums normocephalic Eyes PERRL, EOMs intact bilaterally and conjunctivae normal Eyes Narrative: No proptosis or entrapment General Eye ED: Yes normal appearance of both eyes Neck full ROM, no lymphadenopathy and supple General: Negative for tenderness Chest Wall inspection of chest normal and palpation of chest normal Chest: Negative for tenderness Resp normal respiratory effort and normal air movement Effort and Inspection: symmetric chest movement; Negative for respiratory distress Cardio regular rate, regular rhythm and no murmurs Peripheral Pulses: pulses 2+ throughout GI normal to inspection, nondistended, normoactive bowel sounds and non-tender Palpation: Negative for guarding or rebound tenderness present Back/Spine no CVA tenderness and no thoracic nor lumbar tenderness Back/Spine Narrative: No midline thoracic or lumbar tenderness. Extremity Extremity Narrative: Upper extremity: Full range of motion without any pain. Right lower extremity: Mild anterior abrasion distal mid leg. No active bleeding. No deformities of the leg. Neuro vas intact distally. Left lower extremity: Negative logroll. Tender palpation of patella with ecchymosis. Negative varus and valgus. Skin intact. No ankle tenderness. Neuro vas intact distally. General Extremety ED: Negative for edema or tenderness General Extremity: Negative for edema Neuro oriented x3, CN's II-XII intact bilaterally and no sensory deficits noted Sensorium / Orientation: awake and alert Skin no rashes or lesions noted and no wounds MDM MDM MDM Narrative Medical decision making narrative: Interventions / MDM: Differential diagnosis: Facial contusion, knee contusion Diagnosis considered but do not suspect: Fractures, intra hemorrhage however negative image studies. My EKG interpretation: N/A Imaging independently reviewed and interpreted by myself: CT head/face/cervical spine: No intracranial hemorrhage no fractures also read by radiology. Left knee 4 view x-ray: No fracture or dislocation. Also read radiology. External documents reviewed: N/A Test considered but not ordered:N/A ED course: Patient mechanical fall facial contusion. Abrasion left forehead right lower leg. Contusion of the left knee. Trauma scans ordered head face and neck along with x-ray left knee. She treated with Tylenol in the ED. Ice was placed to the contusion. Scans all negative. Christopher wrap to left knee wound care per nursing. Patient able to ambulate. She will continue Tylenol as needed. Appropriate work restrictions were given. Outpatient follow-up with occupational health. Re-evaluation: stable Disposition discussed with patient/family/significant other: Patient Case discussed with consulting clinician: N/A This note was generated with Phraxisation software. It may contain incorrect words, spelling, and punctuation that were not noted in checking the note before signing. Radiography Diagnostic Testing: Clinical Impression(s) from Imaging Studies Brain CT 11/19/22 10:41 IMPRESSION: Chronic involutional changes of the brain. Small scalp hematoma overlying the left frontal bone. Electronically Signed: Joseph Ott MD at 13:15 EDT , Cervical Spine CT 11/19/22 10:41 IMPRESSION: Multilevel degenerative changes, as described above. Electronically Signed: Joseph Ott MD at 13:25 EDT , Facial/Sinus 11/19/22 10:41 IMPRESSION: Small scalp hematoma overlying the left frontal bone. Electronically Signed: Joseph Ott MD at 13:23 EDT , Knee X-Ray 11/19/22 11:55 IMPRESSION: No acute abnormality is seen. Electronically Signed: Joseph Ott MD at 13:27 EDT , Discharge Plan Triage Chief Complaint: Fall ED Provider: Abdirashid Kimball Dx/Rx/DC Orders Clinical Impression: CHI (closed head injury), Contusion of face, Abrasion, Contusion of knee, left Instructions: Bruises (Contusions), ED Abrasion, ED Head Injury (Adult) Prescriptions: No Action atorvastatin 40 mg tablet 40 mg PO DAILY Qty: 90 allopurinol 300 mg tablet 300 mg PO DAILY folic acid 1 mg tablet 2 mg PO DAILY gabapentin 300 mg capsule 300 mg PO QHS gabapentin 100 mg capsule 100 mg PO DAILY metoprolol succinate 50 mg tablet extended release 24 hr 50 mg PO BID Qty: 60 6RF Primary Care Provider: Walter Emanuel Chi Referrals: Walter Emanuel Chi, MD [Primary Care Provider] - Activity Restrictions/Additional Instructions: CT scan head face and neck all negative for any fractures or bleeds. Soft tissue hematoma of your forehead. Left knee x-ray also negative for fracture. Maintain Christopher wrap for comfort use Tylenol 1 g every 6 hours as needed. Continue ice as needed. Follow-up with occupational health. Disposition Disposition: Home, Self Care Discharge Date/Time: 11/19/22 14:16
[2022-11-19] MEDS: Acetaminophen 500 MG Tablet 1000 MG PO (11:43)
[2022-11-19] MEDS: Diphth,Pertuss(Acell),Tet Vac 0.5 ML Vial IM (11:43)
--- NOTE | 2022-11-19 11:55 | RAD_ITS ---
STUDY: X-RAY - LEFT KNEE REASON FOR EXAM: Female, 71 years old. Left knee pain and swelling following a fall. TECHNIQUE: 4 view(s) of the knee. COMPARISON: None. FINDINGS: Normal visualized distal femur. Normal visualized proximal tibia and fibula. Normal proximal tibiofibular articulation. Normal medial femorotibial compartment. Normal lateral femorotibial compartment. Normal patellofemoral articulation. Focal ossification overlying the left femoral medial condyle suggestive of Vivek-Stieda disease. Mesenteric calcification. RAD/Knee 4 or More Views IMPRESSION: No acute abnormality is seen. Electronically Signed: Joseph Ott MD at 13:27 EDT ,
[2022-11-19 12:14] VITALS: BP 165/61; PULSE 63; RESP 18; O2SAT 98
[2022-11-19 14:12] VITALS: BP 184/66; PULSE 59; RESP 17; O2SAT 97
[2022-11-19 14:13] VITALS: RESP 17
== END 2022-11-19 14:16 | disposition home or self-care (01) ==
PROVIDERS: Emergency Provider Emergency Medicine; PCP Family Medicine Geriatric Medicine; Visit Provider Emergency Medicine
DX: S00.03XA Contusion of scalp, initial encounter (principal); S80.02XA Contusion of left knee, initial encounter; S00.81XA Abrasion of other part of head, initial encounter; S80.811A Abrasion, right lower leg, initial encounter; W18.09XA Striking against other object with subsequent fall, initial encounter; Y92.89 Other specified places as the place of occurrence of the external cause; Y99.0 Civilian activity done for income or pay; E78.5 Hyperlipidemia, unspecified; I10 Essential (primary) hypertension; Z79.899 Other long term (current) drug therapy; Z87.891 Personal history of nicotine dependence; Z23 Encounter for immunization
CPT/HCPCS: 70450; 70486; 72125; 73564; 90471; 90715; 99283

== ENCOUNTER 2022-12-04 06:41 | Inpatient (IN) | payer MEDICARE, SELFPAY ==
[2022-12-04] VITALS (33 sets, daily range): BP systolic 102–126; BP diastolic 55–75; PULSE 89–131; RESP 16–29; TEMP 36.5–37.2; O2SAT 2–99; BMI 25.0; BMI 21.9
--- NOTE | 2022-12-04 07:19 | EKG12_ITS ---
Test Reason : NEURO S/SX Blood Pressure : / mmHG Vent. Rate : 117 BPM Atrial Rate : 117 BPM P-R Int : 138 ms QRS Dur : 118 ms QT Int : 358 ms P-R-T Axes : 000 -45 067 degrees QTc Int : 499 ms Sinus tachycardia Left axis deviation Minimal voltage criteria for LVH, may be normal variant ( [place] product ) Anterior infarct (cited on or before 29-SEP-2022) Abnormal ECG Confirmed by MANDO DONIS, STAR ([id number]), video news editor WILBER RIVERA ([id number]) on 12/08/2022 10:18:31 AM Referred By: MARIXA Confirmed By:BRITTA GILMORE MD
--- NOTE | 2022-12-04 07:19 | RAD_ITS ---
INDICATION: hypoxia EXAMINATION/TECHNIQUE: X-RAY - XR Chest 1 View COMPARISON: 10/01/2022. FINDINGS: LINES/DEVICES: Right-sided Port-A-Cath in stable position. LUNGS: Mild left retrocardiac atelectasis or scarring. No evidence of pleural effusions. MEDIASTINUM AND CARDIOVASCULAR STRUCTURES: Cardiac silhouette not enlarged. Central airways and mediastinal contour are unremarkable. BONES AND SOFT TISSUES: Stable soft tissues and osseous structures. RAD/Chest 1 View (Portable) IMPRESSION: Mild left retrocardiac atelectatic changes. Electronically Signed: Néstor Segundo MD at 8:39 EDT ,
--- NOTE | 2022-12-04 07:30 | EX.ED.DYSGE1 ---
HPI History of Present Illness Chief Complaint: Neuro S/Sx Informant: patient, parent, family and EMS Narrative Narrative: 72-year-old female presenting to the emergency room with chief complaint of altered mental status. Patient is currently in the care of [facility] for non-small cell lung cancer of the left lung with metastasis. She takes Eliquis (denies missing any doses) for paroxysmal atrial fibrillation. She has recently been treated for oral candidiasis. She does not wear home oxygen. Reportedly also had surgery on her tongue for cancer in the spring. She states that she visited with family last evening did have some episodes of feeling off balance. She went to bed around 2100 hrs. She woke several times during the night to use the bathroom which is not abnormal for her. This morning she woke and seemed discoordinated per the . He felt that her face may be drooping and her arms were not working as well. EMS was called and noted her to be hypoxic and hypotensive. states that they have been keeping an eye on her blood pressure does been variable during treatments. She last had chemotherapy 1 week ago. She supposed to go to [facility] this morning for a follow-up appointment and does not wish to miss it. She states that currently she feels good and would like to get on her way to [place]. Nursing notes they have placed her on 2 L nasal cannula to supplement her oxygen. She denies any change in her cough. She notes her weight has been stable over the past week and 139.4 pounds. She feels cold which is not abnormal for her. She notes pain in her back which is chronic and denies any change in the pain or any new pain. She did report a fall couple weeks ago for which she was states she was checked out in the emergency department family notes that she has been anemic during the chemotherapy process but has not received a blood transfusion [facility] Medical History Abdominal aortic aneurysm (AAA) Arthritis Breast cancer Cancer Cardiology follow-up encounter Ductal carcinoma in situ (DCIS) of left breast Encounter for education Essential (primary) hypertension Estrogen receptor positive status (ER+) Former smoker Gout History of breast cancer History of echocardiogram History of stress test Hyperlipidemia Hypertension Malignant neoplasm of unspecified site of right female breast Nontoxic single thyroid nodule Obesity Oral candidiasis Prerenal azotemia Vitamin D deficiency Wears dentures Wears glasses Home Medications atorvastatin 40 mg tablet 40 mg PO DAILY #90 tabs 02/20/19 [History Last Taken 06/25/22] allopurinol 300 mg tablet 300 mg PO DAILY 08/02/20 [History Last Taken 06/25/22] folic acid 1 mg tablet 2 mg PO DAILY 09/03/22 [History Last Taken Unknown] gabapentin 300 mg capsule 300 mg PO QHS 09/03/22 [History Last Taken Unknown] gabapentin 100 mg capsule 100 mg PO DAILY 09/25/22 [History Last Taken Unknown] metoprolol succinate 50 mg tablet,extended release 24 hr 50 mg PO BID #60 tabs 09/30/22 [Rx Last Taken Unknown] apixaban 5 mg tablet (Eliquis) 5 mg PO BID #60 tabs 11/24/22 [Rx Last Taken Unknown] Allergy/AdvReac Type Severity Reaction Status Date / Time No Known Allergies Allergy Verified 12/04/22 06:43 Family History Father , 58 Lung cancer Mother Breast cancer Sister Breast cancer Surgical History Amputated toe of left foot H/O mastectomy H/O: hammer toe correction History of colonoscopy (~2018) History of excision of lesion History of hysterectomy History of oral surgery S/P AAA (abdominal aortic aneurysm) repair S/P breast lumpectomy Social History Smoking Status: Former smoker quit date: 03/15/12 pack-years: 39 alcohol intake: current alcohol intake frequency: a few times a week Alcohol type: beer and wine substance use type: does not use ROS ROS ED Constitutional Constitutional ED: Reports chills; Denies fever(s), sweats or weight loss Eyes Eyes: Denies change in vision or diplopia ENT ENT ED: Denies ear pain, rhinorrhea or sore throat Cardiovascular Cardiovascular: Denies chest pain, orthopnea, palpitations or racing heartbeat Respiratory/Chest Respiratory/Chest: Reports cough; Denies dyspnea, dyspnea on exertion or orthopnea Gastrointestinal Gastrointestinal: Denies abdominal pain, diarrhea, nausea or vomiting Genitourinary Genitourinary ED: Denies dysuria, hematuria or urinary frequency Musculoskeletal Musculoskeletal: Reports back pain; Denies arthralgias, myalgias or neck pain Integumentary Denies abscess or rash Neurologic Neurologic: Reports weakness and other Details: Reported left facial weakness and arm weakness ; Denies headache(s) or paresthesias Psychiatric Psychiatric: Denies anxiety, depression, suicidal ideation or suicidal thoughts Endocrine Endocrinology: Denies cold intolerance, heat intolerance, polydipsia, polyphagia or polyuria Hematologic/Lymphatic Hematologic/Lymphatic: Reports easy bleeding and easy bruising Allergic/Immunologic Allergic/Immunologic ED: Denies mouth swelling, tongue swelling or urticaria EXAM Physical Exam Narrative Exam Narrative: Patient is alert and oriented sitting in the bed. She is able to transfer to bedside commode. Const Vital Signs: 12/04/22 06:44 12/04/22 06:48 12/04/22 07:01 Temperature 97.7 F L 97.7 F L Temperature Source Temporal Temporal Pulse Rate 126 H 125 H 131 H Respiratory Rate 25 H 21 H 22 H Respiratory Pattern Blood Pressure 102/57 L 102/57 L 120/67 Blood Pressure Mean 72 72 84 Pulse Ox 69 82 91 Oxygen Delivery Method Room Air Nasal Cannula Nasal Cannula Oxygen Flow Rate (L/min) 2 2 12/04/22 07:03 12/04/22 07:19 12/04/22 07:03 Temperature 97.7 F L Temperature Source Temporal Pulse Rate 118 H 126 H Respiratory Rate 20 H 25 H Respiratory Pattern Blood Pressure 120/67 102/57 L Blood Pressure Mean 84 72 Pulse Ox 91 91 Oxygen Delivery Method Nasal Cannula Nasal Cannula Room Air Oxygen Flow Rate (L/min) 2 12/04/22 08:03 12/04/22 09:00 12/04/22 10:00 Temperature 97.8 F 98.1 F 98.1 F Temperature Source Temporal Temporal Temporal Pulse Rate 116 H 105 H 103 H Respiratory Rate 27 H 17 22 H Respiratory Pattern Blood Pressure 113/69 116/65 117/65 Blood Pressure Mean 83 82 82 Pulse Ox 91 95 93 Oxygen Delivery Method Nasal Cannula Nasal Cannula Nasal Cannula Oxygen Flow Rate (L/min) 12/04/22 10:56 Temperature Temperature Source Pulse Rate 102 H Respiratory Rate 20 H Respiratory Pattern Tachypnea Blood Pressure Blood Pressure Mean Pulse Ox Oxygen Delivery Method Oxygen Flow Rate (L/min) Positive well nourished and well developed General Appearance ED: well developed HEENT Reports normocephalic, head/scalp atraumatic and moist mucous membranes Eyes PERRL and EOMs intact bilaterally Neck no lymphadenopathy, supple and no JVD Resp Resp Narrative: Patient appears slightly tachypneic at rest. She has diminished breath sounds at the bases. Cardio regular rate, regular rhythm and no murmurs Rate: tachycardic GI normal to inspection, nondistended, normoactive bowel sounds and non-tender Palpation: soft Back/Spine no CVA tenderness and normal ROM Extremity normal to inspection General Extremety ED: Negative for edema General Extremity: Negative for edema Neuro oriented x3 and CN's II-XII intact bilaterally Sensorium / Orientation: alert Motor Exam: strength 5/5 throughout Psych mental status grossly normal Mood & Affect: Negative for depressed or tearful Skin no rashes or lesions noted Skin Narrative: Patient has healing ecchymosis of the left face MDM MDM MDM Narrative Medical decision making narrative: My interpretation of the chest x-ray is left retrocardiac consolidation. Chronic changes noted. White count is normal. Hemoglobin is low no at 8.4. She has been steadily decreasing throughout the year family notes that they have been monitoring this and is believed to be due to her chemotherapy. Her MCV is 103.1. Platelet count of 488. BUN and creatinine showed 19-1. Glucose 112. Troponin is elevated 146. My suspicion given that her EKG is nonischemic is more type II related to her tachycardia and hypoxia. Beta natruretic peptide is 282. CTA of the chest was obtained due to the persistent hypoxia and tachycardia. Negative for pulmonary embolism. Please see radiologist read. Urine is positive nitrates positive leukocyte esterase 25-50 white cells and 3+ bacteria. Blood and urine cultures were obtained and the patient received a dose of Rocephin. Patient continues to have persistent hypoxia. On room air, at rest, she is 79% during my reexamination. She is mentating normal. She is able to walk to the bathroom with assistance and oxygen. Plan is admission to the hospital for further care. History & Record Review Discussion w/independent historian: EMS personnel, Patient and Family Additional record(s) reviewed:: Prior inpatient record and Prior labs Lab Data Attestation: I reviewed the patient's lab results. Labs: Laboratory Results - last 24 hr 12/04/22 07:31 WBC 9.6 RBC 2.60 L Hgb 8.4 L Hct 26.8 L MCV 103.1 H MCH 32.3 H MCHC 31.3 L RDW Std Deviation 78.1 H RDW Coeff of Blanca 20.8 H Plt Count 488 H MPV 9.7 Neut % (Auto) Not Reportable Absolute Neuts (auto) 6.6 Absolute Lymphs (auto) 1.35 Total Counted 100 Neutrophils % (Manual) 65 Lymphocytes % (Manual) 14 L Monocytes % (Manual) 12 H Eosinophils % (Manual) 5 Metamyelocytes % 1 Myelocytes % 3 H Diff Path Review May foll Platelet Estimate SLT INC Polychromasia RARE Anisocytosis 2+ Macrocytosis 1+ PT 21.1 H INR 1.8 APTT 50.9 H Sodium 136 Potassium 4.1 Chloride 104 Carbon Dioxide 25.0 Anion Gap 7 BUN 19 H Creatinine 1.00 Estim Creat Clear Calc 41.45 Est GFR (MDRD) Af Amer 70 Est GFR (MDRD) Non-Af 58 L BUN/Creatinine Ratio 19.0 Glucose 110 H Lactic Acid 0.9 Calcium 8.6 Magnesium 1.9 Total Bilirubin 0.50 Direct Bilirubin 0.15 AST 30 ALT 41 Alkaline Phosphatase 158 H Troponin I High Sens 146 H* B-Natriuretic Peptide 282.9 H Total Protein 6.6 Albumin 2.3 L Globulin 4.3 H Lipase 40 Urine Color Yellow Urine Clarity Sl. Cloudy Urine pH 5.0 Ur Specific [place] 1.020 Urine Protein 30 H Urine Glucose (UA) Normal Urine Ketones Negative Urine Occult Blood 25 H Urine Nitrite Positive H Urine Bilirubin Negative Urine Urobilinogen Normal Ur Leukocyte Esterase 500 H Urine RBC 0-5 SEEN Urine WBC 25-50 SEEN Ur Squamous Epith Cells 0-5 SEEN Urine Bacteria 3+ Urine Mucus 0 SEEN Radiography Diagnostic Testing: Clinical Impression(s) from Imaging Studies Chest X-Ray 12/04/22 07:19 IMPRESSION: Mild left retrocardiac atelectatic changes. Electronically Signed: Néstor Segundo MD at 8:39 EDT , Brain CT 12/04/22 07:55 IMPRESSION: No acute intracranial process. Chronic involutional changes of the brain. Electronically Signed: Néstor Segundo MD at 8:27 EDT , Chest CTA 12/04/22 09:25 IMPRESSION: 1. No evidence of pulmonary embolism or aortic dissection. 2. Left lower lobe mass with adjacent atelectatic changes could be all due to atelectasis. Malignancy however cannot be excluded. Correlation with PET scan or follow-up exam following treatment is recommended. 3. Patchy ground glass opacities/infiltrates in both upper lobes superimposed on chronic fibrotic changes. 4. Right upper lobe 7 mm nodule for which follow up exam in 6 months is recommended. Electronically Signed: Néstor Segundo MD at 9:56 EDT , EKG Initial EKG: Attestation: I personally reviewed and interpreted this EKG as follows: Interpretation: Sinus Tachycardia Comments: Sinus tachycardic rhythm with a ventricular rate of 117 bpm. No concerning features of ACS noted Differential Diagnosis Chest pain/SOB: pulmonary embolism, ACS, pneumothorax, pneumonia, aortic dissection, CHF and COPD Management Discussion w/another healthcare provider: Hospitalist Discharge Plan Dx/Rx/DC Orders Clinical Impression: 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, Anemia, Tachycardia, Elevated troponin, Hypoxia, Acute UTI Disposition Disposition: Acute Care [facility]
[2022-12-04 07:41] LABS: Mucous, Urine 0 SEEN /hpf (<or=2+)
[2022-12-04 07:51] LABS: Hematocrit 26.8 % (37-47); Hemoglobin 8.4 g/dL (12.0-15.0); Mean Corp Hgb Conc 31.3 g/dL (32-36); Mean Corpuscular Hgb 32.3 pg (27.0-32.0); Mean Corpuscular Volume 103.1 fL (81-99); Mean Platelet Vol. 9.7 fl (6.2-12.0); POSITIVE COUNT YES; POSITIVE MORPHOLOGY YES; Platelet Count 488 K/mm3 (150-450); RBC Distribution Width CV 20.8 % (11.6-14.6); RBC Distribution Width SD 78.1 fl (35.1-43.9); White Blood Count 9.6 K/mm3 (4.4-11.0)
[2022-12-04 07:53] LABS: Differential Indicated MANUAL DIFF
--- NOTE | 2022-12-04 07:55 | CT_ITS ---
INDICATION: confusion EXAMINATION: CT BRAIN - CT Head or Brain W/O Contrast Injection TECHNIQUE: Multiple axial images were obtained of the head without intravenous contrast. A radiation dose optimization technique was used for this scan. IV Contrast dosage and agent: None. RADIATION DOSAGE (If Supplied By Facility): CTDIvol = ( 44.99 ) mGy, DLP = ( 812.98 ) mGycm COMPARISON: CT scan of the brain of 11/19/2022 and MRI of the brain of 09/17/2022. FINDINGS: BRAIN PARENCHYMA: No intra- or extra-axial hemorrhage. No evidence of acute infarct. Chronic periventricular deep matter changes including focal hypodensity in the right garrison radiata corresponding to hyperintensity on the MRI of the brain consistent with chronic deep white matter changes and microvascular disease. There is preservation of the rider/white matter interface. Posterior fossa structures are unremarkable. Atherosclerotic calcifications of the cavernous internal carotid arteries. CSF SPACES: Mild atrophy. No hydrocephalus. Basal cisterns are patent. CALVARIUM, SKULL BASE, PARANASAL SINUSES AND MASTOID AIR CELLS: Clear. No discrete lytic or blastic abnormalities. ORBITS: Both globes, extraocular muscles, optic nerves and retrobulbar fat appear unremarkable. ASPECTS Score for Acute Strokes: 10 CT/Brain/Head without Contrast IMPRESSION: No acute intracranial process. Chronic involutional changes of the brain. Electronically Signed: Néstor Segundo MD at 8:27 EDT ,
[2022-12-04 08:00] LABS: Color, Urine Yellow (Yellow); Glucose, Dipstick Normal (Normal); Ketone-Dipstick Negative (Negative); Leukocyte Esterase-Dipstick 500 /ul (Negative); Nitrite-Dipstick Positive (Negative); Occult Blood-Urine 25 /ul (Negative); Protein-Dipstick 30 mg/dl (Negative); Urine Bilirubin Dipstick Negative (Negative); Urine Clarity Sl. Cloudy (Clear); Urine Urobilinogen Normal (Normal)
[2022-12-04 08:02] LABS: Lactic Acid 0.9 mmol/L (0.4-1.9)
[2022-12-04 08:05] LABS: AST(SGOT) 30 U/L (15-37); Alanine Aminotransfer ALT/SGPT 41 U/L (13-56); Albumin, Serum 2.3 g/dL (3.2-5.0); Alkaline Phosphatase 158 U/L (45-117); Anion Gap 7 (5-15); BUN 19 mg/dL (7-18); Bilirubin, Direct 0.15 mg/dL (0.00-0.30); Calcium,Total 8.6 mg/dL (8.5-10.1); Chloride 104 mmol/L (98-107); EST Glomerular Filtration Rate 58 mL/min (>60); Est Glom Filt Rate - Afr Amer 70 mL/min (>60); Estimated Creatinine Clearance 41.45 ml/min; Globulin 4.3 g/dL (2.2-4.2); Glucose 110 mg/dL (74-106); Lipase 40 U/L (13-75); Magnesium 1.9 mg/dL (1.6-2.6); Potassium 4.1 mmol/L (3.5-5.1); Protein, Total 6.6 g/dL (6.4-8.2); Sodium Level 136 mmol/L (136-145); Troponin-I HS 146 pg/mL (3.0-54.0)
[2022-12-04] MEDS: 0.9% Normal Saline (500mL Bag) 500 ML 1000 ML IV (08:07)
[2022-12-04 08:08] LABS: International Normalized Ratio 1.8; Prothrombin Time (Protime)PT. 21.1 SECONDS (11.7-14.9)
[2022-12-04 08:09] LABS: Partial Thromboplast Time 50.9 Seconds (24.1-36.2)
[2022-12-04 08:10] LABS: Bacteria 3+ /hpf (None Seen); Red Blood Cells-Urine 0-5 SEEN /hpf (0-5); Squamous Epithelial Cells - UA 0-5 SEEN /hpf (5-10); White Blood Cells 25-50 SEEN /hpf (0-5)
[2022-12-04 08:18] LABS: BNP,B-Type NATRIURETIC PEPTIDE 282.9 pg/mL (0-100); Eosinophil 5 % (0-5); Lymphocyte 14 % (19-41); Metamyelocyte 1 % (0-1); Monocyte 12 % (0-10); Myelocyte 3 % (0-0); Neutrophil-Segmented 65 % (47-70); Total Cells Counted 100 (MANUAL DIFF)
[2022-12-04 08:19] LABS: Neutrophil # 6.64 X10^3/uL (2.7-7.7)
[2022-12-04 08:20] LABS: Absolute Lymphocyte Count 1.35 X10^3/uL (0.83-4.51); Absolute Neutrophil Count 6.6 X10^3/uL (2.0-7.7); Lymphocyte # 1.35 X10^3/ul (0.83-4.51)
[2022-12-04 08:21] LABS: Platelet Estimate SLT INC (ADEQ)
[2022-12-04 08:22] LABS: Anisocytosis 2+; Macrocytosis 1+; Polychromasia RARE
[2022-12-04] MEDS: Ceftriaxone 1 GM/50 ML BAG IV (08:53)
--- NOTE | 2022-12-04 09:25 | CT_ITS ---
STUDY: CTA CHEST REASON FOR EXAM: Female, 72 years old. Pulmonary embolism RADIATION DOSAGE (If Supplied By Facility): CTDIvol = ( 6.54 ) mGy, DLP = ( 255.46 ) mGycm TECHNIQUE: The examination was performed with the intravenous administration of IV 100mL Isovue-370. Post-processing of the angiographic images was performed, with multiplanar reformation and 3D reconstruction. Individualized dose optimization techniques were used for this CT. COMPARISON: No prior examinations are available for comparison. FINDINGS: Normal enhancement of the main pulmonary artery and right and left pulmonary arteries. Normal enhancement of the bilateral peripheral pulmonary arteries. There is no demonstrated pulmonary embolism. There is atherosclerotic calcification of the aortic arch and descending thoracic aorta. There is no demonstrated aortic dissection. Normal heart and pericardium. There are calcifications of the coronary arteries. Normal mediastinum. Normal hilar regions. Normal visualized trachea and bronchi. 7 mm right upper lobe nodule seen on image 23 series 2. Spiculated mass in the left lower lobe measuring about 4 x 3 x 2.6 cm with mild stranding and atelectatic changes. Patchy groundglass opacities/infiltrates in both upper lobes worse on the left side appears to be superimposed on chronic fibrotic changes worse in the left upper lobe. There are no pleural effusions. Normal chest wall structures. No demonstrated acute osseous changes. Visualized portions of the upper abdomen demonstrate no acute process. Endoluminal aortic stent partially visualized. CT/CTA Chest W/WO Contrast IMPRESSION: 1. No evidence of pulmonary embolism or aortic dissection. 2. Left lower lobe mass with adjacent atelectatic changes could be all due to atelectasis. Malignancy however cannot be excluded. Correlation with PET scan or follow-up exam following treatment is recommended. 3. Patchy ground glass opacities/infiltrates in both upper lobes superimposed on chronic fibrotic changes. 4. Right upper lobe 7 mm nodule for which follow up exam in 6 months is recommended. Electronically Signed: Néstor Segundo MD at 9:56 EDT ,
[2022-12-04] MEDS: Ipratropium/Albuterol Sulfate 3 ML AMPUL.NEB INHALATION (10:54)
--- NOTE | 2022-12-04 11:17 | HP.PCM_ITS ---
HPI - General General Date of Admission: 12/04/22 Date of Service: 12/04/22 Chief Complaint: altered mental status HPI Narrative OSMIN DAN, is a 72 F with a PMH as outlined including nonsmall cell cancer of the lung who presents via the ED on 12/04/2022. She was visiting with family yesterday. When she woke up this morning she was noted to be confused and disoriented. There was concern that she might have a facial droop. Family was concerrned so they brought her in to the ED. also noted she was hypotensive with systolic BP in the 90s. Patient tells me her blood pressure usually runs low. She denied any fever or chills and denied any urinary complaints. She denied any cough or chest pain or palpitations. says she usually slept in a recliner and was slumped to the side when he saw her and he thought she had a mild droop. She had an MRI about 2 months ago which was negative for any evidence of brain mets. Review of systems otherwise negative. She says she was due for follow-up with her oncologist in [facility] on the day she was admitted. Vitals in the ED showed pulse rate of 102, respiratory rate of 20 and temperature of 98.1 Fahrenheit. She had been hypoxic in the 70s when she came to the ED and at the time of my review was saturating at 92% on 2 L of oxygen. CBC was significant for hemoglobin of 8.4 with platelets of 488. WBC was 9.6. INR is 1.8 and chemistry shows sodium of 136 with bicarb of 25 and potassium of 4.1. Initial troponin was 146 and BNP was 282.9. Urinalysis showed 3+ bacte cy. CTA of the chest showed no evidence of PE or aortic dissection and showed a left lower lobe mass with adjacent atelectatic changes and patchy groundglass opacities or infiltrates in both upper lobes superimposed on chronic fibrotic changes as well as right upper lobe nodule. She has been admitted to be managed for altered mental status likely due to UTI and hypoxia likely due to metastatic lung cancer. [facility] Medical History Abdominal aortic aneurysm (AAA) Arthritis Breast cancer Cancer Cardiology follow-up encounter Ductal carcinoma in situ (DCIS) of left breast Encounter for education Essential (primary) hypertension Estrogen receptor positive status (ER+) Former smoker Gout History of breast cancer History of echocardiogram History of stress test Hyperlipidemia Hypertension Malignant neoplasm of unspecified site of right female breast Nontoxic single thyroid nodule Obesity Oral candidiasis Prerenal azotemia Vitamin D deficiency Wears dentures Wears glasses Home Medications atorvastatin 40 mg tablet 40 mg PO QHS cholesterol #90 tabs 02/20/19 [History Last Taken 12/03/22] allopurinol 300 mg tablet 300 mg PO DAILY 08/02/20 [History Last Taken 12/03/22] folic acid 1 mg tablet 2 mg PO DAILY 09/03/22 [History Last Taken 12/03/22] gabapentin 300 mg capsule 300 mg PO QHS 09/03/22 [History Last Taken 12/03/22] gabapentin 100 mg capsule 100 mg PO DAILY 09/25/22 [History Last Taken 12/03/22] apixaban 5 mg tablet (Eliquis) 5 mg PO BID #60 tabs 11/24/22 [Rx Last Taken 12/03/22] metoprolol succinate 50 mg tablet,extended release 24 hr 50 mg PO DAILY 12/04/22 [History Last Taken 12/03/22] loeidbkaotwf-npnqhzrx-kigyug tablet (A Thru Z High Potency tablet) 1 tab PO DAILY 12/04/22 [History Last Taken 12/03/22] potassium 99 mg tablet 99 mg PO DAILY 12/04/22 [History Last Taken 12/03/22] Allergy/AdvReac Type Severity Reaction Status Date / Time No Known Allergies Allergy Verified 12/04/22 06:43 Family History Father , 58 Lung cancer Mother Breast cancer Sister Breast cancer Surgical History Amputated toe of left foot H/O mastectomy H/O: hammer toe correction History of colonoscopy (~2019) History of excision of lesion History of hysterectomy History of oral surgery S/P AAA (abdominal aortic aneurysm) repair S/P breast lumpectomy Social History Smoking Status: Former smoker quit date: 03/15/12 pack-years: 39 alcohol intake: current alcohol intake frequency: a few times a week Alcohol type: beer and wine substance use type: does not use Vital Signs Vital Signs Vital Signs: 12/04/22 06:44 12/04/22 06:48 12/04/22 07:01 Temperature 97.7 F L 97.7 F L Temperature Source Temporal Temporal Pulse Rate 126 H 125 H 131 H Respiratory Rate 25 H 21 H 22 H Respiratory Pattern Blood Pressure 102/57 L 102/57 L 120/67 Blood Pressure Mean 72 72 84 Pulse Ox 69 82 91 Oxygen Delivery Method Room Air Nasal Cannula Nasal Cannula Oxygen Flow Rate (L/min) 2 2 12/04/22 07:03 12/04/22 07:19 12/04/22 07:03 Temperature 97.7 F L Temperature Source Temporal Pulse Rate 118 H 126 H Respiratory Rate 20 H 25 H Respiratory Pattern Blood Pressure 120/67 102/57 L Blood Pressure Mean 84 72 Pulse Ox 91 91 Oxygen Delivery Method Nasal Cannula Nasal Cannula Room Air Oxygen Flow Rate (L/min) 2 12/04/22 08:03 12/04/22 09:00 12/04/22 10:00 Temperature 97.8 F 98.1 F 98.1 F Temperature Source Temporal Temporal Temporal Pulse Rate 116 H 105 H 103 H Respiratory Rate 27 H 17 22 H Respiratory Pattern Blood Pressure 113/69 116/65 117/65 Blood Pressure Mean 83 82 82 Pulse Ox 91 95 93 Oxygen Delivery Method Nasal Cannula Nasal Cannula Nasal Cannula Oxygen Flow Rate (L/min) 12/04/22 10:56 Temperature Temperature Source Pulse Rate 102 H Respiratory Rate 20 H Respiratory Pattern Tachypnea Blood Pressure Blood Pressure Mean Pulse Ox Oxygen Delivery Method Oxygen Flow Rate (L/min) Weight Weight: 141 lb 5.061 oz Body Mass Index (BMI) 25.0 Physical Exam HEENT normocephalic, head/scalp atraumatic and moist oral mucous membranes HEENT Narrative: frail looking Eyes PERRL and EOMs intact bilaterally Neck no lymphadenopathy and supple Lymph Lymphatic: no lymphadenopathy noted and no lymphedema noted Resp Resp Narrative: diminished breath sounds bibasally, few crackles. Cardio regular rate, regular rhythm, S1 normal heart sound, S2 normal heart sound and no murmurs GI normal to inspection, nondistended, normoactive bowel sounds, soft to palpation, non-tender and non-distended Extremity normal capillary refill, no clubbing, cyanosis or edema and no calf tenderness Skin General Skin Exam: no breakdown Neuro CN's II-XII intact bilaterally and no focal motor deficits Psych thought process normal and cooperative Appearance: appropriate Results Lab / Micro Data 12/04/22 07:31 12/04/22 07:31 Labs: Laboratory Results - last 24 hr 12/04/22 07:31: WBC 9.6, RBC 2.60 L, Hgb 8.4 L, Hct 26.8 L, MCV 103.1 H, MCH 32.3 H, MCHC 31.3 L, RDW Std Deviation 78.1 H, RDW Coeff of Blanca 20.8 H, Plt Count 488 H, MPV 9.7, Neut % (Auto) Not Reportable, Absolute Neuts (auto) 6.6, Absolute Lymphs (auto) 1.35, Total Counted 100, Neutrophils % (Manual) 65, Lymphocytes % (Manual) 14 L, Monocytes % (Manual) 12 H, Eosinophils % (Manual) 5, Metamyelocytes % 1, Myelocytes % 3 H, Diff Path Review May , Platelet Estimate SLT INC, Polychromasia RARE, Anisocytosis 2+, Macrocytosis 1+, PT 21.1 H, INR 1.8, APTT 50.9 H, Sodium 136, Potassium 4.1, Chloride 104, Carbon Dioxide 25.0, Anion Gap 7, BUN 19 H, Creatinine 1.00, Estim Creat Clear Calc 41.45, Est GFR (MDRD) Af Amer 70, Est GFR (MDRD) Non-Af 58 L, BUN/Creatinine Ratio 19.0, Glucose 110 H, Lactic Acid 0.9, Calcium 8.6, Magnesium 1.9, Total Bilirubin 0.50, Direct Bilirubin 0.15, AST 30, ALT 41, Alkaline Phosphatase 158 H, Troponin I High Sens 146 H*, B-Natriuretic Peptide 282.9 H, Total Protein 6.6, Albumin 2.3 L, Globulin 4.3 H, Lipase 40, Urine Color Yellow, Urine Clarity Sl. Cloudy, Urine pH 5.0, Ur Specific [place] 1.020, Urine Protein 30 H, Urine Glucose (UA) Normal, Urine Ketones Negative, Urine Occult Blood 25 H, Urine Nitrite Positive H, Urine Bilirubin Negative, Urine Urobilinogen Normal, Ur Leukocyte Esterase 500 H, Urine RBC 0-5 SEEN, Urine WBC 25-50 SEEN, Ur Squamous Epith Cells 0-5 SEEN, Urine Bacteria 3+, Urine Mucus 0 SEEN Radiology Impression Chest X-Ray 12/04/22 07:19 IMPRESSION: Mild left retrocardiac atelectatic changes. Electronically Signed: Néstor Segundo MD at 8:39 EDT , Brain CT 12/04/22 07:55 IMPRESSION: No acute intracranial process. Chronic involutional changes of the brain. Electronically Signed: Néstor Segundo MD at 8:27 EDT , Chest CTA 12/04/22 09:25 IMPRESSION: 1. No evidence of pulmonary embolism or aortic dissection. 2. Left lower lobe mass with adjacent atelectatic changes could be all due to atelectasis. Malignancy however cannot be excluded. Correlation with PET scan or follow-up exam following treatment is recommended. 3. Patchy ground glass opacities/infiltrates in both upper lobes superimposed on chronic fibrotic changes. 4. Right upper lobe 7 mm nodule for which follow up exam in 6 months is recommended. Electronically Signed: Néstor Segundo MD at 9:56 EDT , Assessment & Plan Assessment/Plan (1) Acute UTI: (2) Hypoxia: PLAN: Plan #Altered mental status due to UTI * urianlysis showed 3+ bacteria. * admit to PCU * hydrate with IVF * check urine culture * start on IV ceftriaxone. * PT/OT consult * fall precautions * #Hypoxia: * Patient was saturating in the 70s when she came into the ED. * Initial troponin was elevated at 146 which is likely due to hypoxia. * Will trend troponins. * CT of the chest was negative for any evidence of PE. * She did have 2D echo just on November 17, 2022 which showed EF of 60% with stage I diastolic dysfunction and no regional wall motion abnormality seen with normal left ventricular static function and stage 1 diastolic dysfunction * ##History of non-small cell lung cancer with mets * Per oncology notes, she is known to have squamous cell carcinoma of the lung extending to the pleura in the left hilum as well as the mediastinal and left hilar lymph nodes. * Was noted to be amenable for surgery and began chemoradiation with weekly carboplatin and Taxol which finished on 10/28/2022 and also finished radiation on 11/03/2022. * To follow-up with oncology on outpatient basis. * #History of squamous cell carcinoma of the mouth: * CT of the neck and chest on 08/04/2022 picked up the lung mass. * She has had direct laryngoscopy and esophagoscopy and floor of mouth excision on 08/12/2022. * follow up with oncology on outpatient basis * * #History of breast cancer: Had ductal carcinoma in situ which was ER/[place] positive. S/p treatment #Hypertension: on metoprolol #History of A-fib: On metoprolol. On Eliquis. DVT prophylaxis: On Eliquis Hyperlipidemia: CODE STATUS: DNR CCA no intubation * Patient and family counseled extensively about different types of CODE STATUS including full code, DNR CCA and DNR CCA. Patient elects to be DNRCCA no intubation. * Total [id number] time 17 minutes. Charges/Coding Visit Charges Inpatient E&M: 93625 Init Hosp L3 Procedures Hospitalists Procedures: 00748 Advncd Care Plan 30 Min
--- NOTE | 2022-12-04 13:46 | NURSING ---
Ensure not ordered per policy due to patient refusing to drink them
[2022-12-04] MEDS: 0.9% Normal Saline (1000mL) 1,000 ML 100 ML IV ×2 (14:30→23:05)
--- NOTE | 2022-12-04 16:13 | CASEMGMT ---
Social Work SW introduced self and role to patient and patient's spouse. SW inquired about advance directives paperwork. Pt and spouse report that they have HCPOA which names as POA and a living will. Spouse reports documents provided in the ED and should be on file. Living will is on file but HCPOA not located, likely has not been scanned in from ED visit yet. 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
[2022-12-04 18:04] LABS: Troponin-I HS 113 pg/mL (3.0-54.0)
[2022-12-04 20:57] LABS: Troponin-I HS 96 pg/mL (3.0-54.0)
[2022-12-04] MEDS: APIXABAN 5 MG TABLET PO (21:22)
[2022-12-04] MEDS: Gabapentin 300 MG Capsule PO (21:22)
[2022-12-04] MEDS: Atorvastatin Calcium 40 MG Tablet PO (21:23)
[2022-12-05] VITALS (7 sets, daily range): BP systolic 116–147; BP diastolic 58–79; PULSE 103–121; RESP 18–20; TEMP 36.8–38; O2SAT 94–98
[2022-12-05 00:25] LABS: Troponin-I HS 90 pg/mL (3.0-54.0)
[2022-12-05] MEDS: Acetaminophen 325 MG Tablet 650 MG PO (04:10)
[2022-12-05 09:03] LABS: Hematocrit 25.7 % (37-47); Hemoglobin 7.9 g/dL (12.0-15.0); Mean Corp Hgb Conc 30.7 g/dL (32-36); Mean Corpuscular Hgb 32.8 pg (27.0-32.0); Mean Corpuscular Volume 106.6 fL (81-99); Mean Platelet Vol. 9.3 fl (6.2-12.0); POSITIVE COUNT YES; POSITIVE DIFFERENTIAL YES; POSITIVE MORPHOLOGY YES; Platelet Count 439 K/mm3 (150-450); RBC Distribution Width CV 20.3 % (11.6-14.6); RBC Distribution Width SD 79.5 fl (35.1-43.9); Red Blood Count 2.41 M/mm3 (4.2-5.4); White Blood Count 7.7 K/mm3 (4.4-11.0)
[2022-12-05 09:08] LABS: Differential Indicated MANUAL DIFF
[2022-12-05 09:22] LABS: Anion Gap 5 (5-15); BUN 10 mg/dL (7-18); BUN/Creat Ratio 12.8 RATIO (10-20); Calcium,Total 8.3 mg/dL (8.5-10.1); Chloride 108 mmol/L (98-107); Creatinine, Serum 0.78 mg/dL (0.55-1.02); EST Glomerular Filtration Rate 77 mL/min (>60); Est Glom Filt Rate - Afr Amer 93 mL/min (>60); Estimated Creatinine Clearance 41.45 ml/min; Glucose 158 mg/dL (74-106); Potassium 3.6 mmol/L (3.5-5.1); Sodium Level 138 mmol/L (136-145)
[2022-12-05] MEDS: Multivitamins,Ther W-Minerals Tablet 1 TABLET PO (09:45)
[2022-12-05] MEDS: Allopurinol 300 MG Tablet PO (09:45)
[2022-12-05] MEDS: Folic Acid 1 MG Tablet 2 MG PO (09:45)
[2022-12-05] MEDS: Gabapentin 100 MG Capsule PO (09:45)
--- NOTE | 2022-12-05 09:45 | CASEMGMT ---
RN CM Face to Face with patient for initial transition planning/care coordination assessment. RN CM introduced self and role at [facility]. Patient sitting in chair, alert and oriented, daughter at bedside. Patient willing to participate in assessment and is able to answer all questions appropriately. Care providers, pharmacy, and demographics verified. Patient wishes to discharge home, denies need for home health at this time. Patient states she has no further needs or concerns at this time. CM to follow for discharge planning needs that may arise. PCP: [facility] Specialists: Yary, oncologist; Catherine, radiologist; [facility] Preferred Pharmacy: [facility] Insurance: [employer] Prescription Benefit: yes Living Will/HPOA: yes, [employer] LNOK: , daughter Living Arrangements: Patient lives with in a 2 story home with bed and bath on first floor, 2 steps and railing to enter the home. Transportation: self, DME/HHC: Patient has walker. Will monitor for home oxygen. Insurance prefers [facility]. No previous HHC or SNF. Disposition Plan: Patient to discharge home with family support and follow-up plans in place. Cristine AMIN, RN, CM
[2022-12-05] MEDS: Metoprolol(XL)Succ 50 MG Tablet PO (09:46)
[2022-12-05] MEDS: APIXABAN 5 MG TABLET PO ×2 (09:46→20:34)
[2022-12-05] MEDS: Ceftriaxone 1 GM/50 ML BAG IV (09:47)
[2022-12-05 09:53] LABS: Eosinophil 4 % (0-5); Lymphocyte 9 % (19-41); Metamyelocyte 1 % (0-1); Monocyte 9 % (0-10); Myelocyte 2 % (0-0); Neutrophil-Segmented 75 % (47-70); Total Cells Counted 100 (MANUAL DIFF)
[2022-12-05 09:54] LABS: Neutrophil # 6.04 X10^3/uL (2.7-7.7)
[2022-12-05 09:57] LABS: Anisocytosis 2+; Macrocytosis 1+; Platelet Estimate MKD INC (ADEQ); Polychromasia RARE
--- NOTE | 2022-12-05 10:33 | PN_ITS ---
Subjective Subjective Patient seen and examined. She tells me she feels much better today. She did have a fever of 100F this morning. She denied any fever, chills, cough, chest pain, palpitations, dizziness, nausea, vomiting or any other symptoms. Review of systems is otherwise negative. She is on 2L of oxygen. Objective Data Objective Data Vital Signs: Vital Signs Temp Pulse Resp BP Pulse Ox O2 Del Method O2 Flow Rate 98.3 F 105 H 18 134/73 H 95 Nasal Cannula 2 12/05/22 09:30 12/05/22 09:46 12/05/22 09:30 12/05/22 09:46 12/05/22 09:59 12/05/22 09:59 12/05/22 09:59 Oxygen Flow Rate (L/min) 2 Oxygen Delivery Method Nasal Cannula Weight: 123 lb 14.397 oz Body Mass Index (BMI) 21.9 Intake & Output: Intake and Output for Last 24 Hours 12/03/22 12/04/22 12/05/22 23:59 23:59 23:59 Intake Total 1908.33 / 1908.33 1300 / 1300 Balance 1908.33 / 1908.33 1300 / 1300 Medical Nutrition Assessment Dietitian: Malnutrition Criteria Met Start: 12/04/22 16:37 Freq: Status: Active Protocol: Document 12/04/22 16:38 SLA (Rec: 12/04/22 16:38 SLA Desktop) Nutrition Malnutrition Evidence of Malnutrition Exists Yes Malnutrition (severe): Chronic Evidenced By Suboptimal Energy Intake ( Severe),Weight Loss (Severe) Clinical Problem Chronic Disease or Condition Related Malnutrition Etiology related to breast/lung cancer and pt having inadequate energy intake Signs/Symptoms as evidenced by 11/18/22 wt 62. 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 Lab / Micro Data 12/05/22 08:47 12/05/22 08:47 Labs: Laboratory Results - last 24 hr 12/04/22 17:37: Troponin I High Sens 113 H 12/04/22 20:00: Troponin I High Sens 96 H 12/04/22 23:47: Troponin I High Sens 90 H 12/05/22 08:47: WBC 7.7, RBC 2.41 L, Hgb 7.9 L, Hct 25.7 L, MCV 106.6 H, MCH 32.8 H, MCHC 30.7 L, RDW Std Deviation 79.5 H, RDW Coeff of Blanca 20.3 H, Plt Count 439, MPV 9.3, Neut % (Auto) Not Reportable, Absolute Neuts (auto) 6.0, Absolute Lymphs (auto) 0.70 L, Total Counted 100, Neutrophils % (Manual) 75 H, Lymphocytes % (Manual) 9 L, Monocytes % (Manual) 9, Eosinophils % (Manual) 4, Metamyelocytes % 1, Myelocytes % 2 H, Diff Path Review May foll, Platelet Estimate MKD INC, Polychromasia RARE, Anisocytosis 2+, Macrocytosis 1+, Sodium 138, Potassium 3.6, Chloride 108 H, Carbon Dioxide 25.0, Anion Gap 5, BUN 10, Creatinine 0.78, Estim Creat Clear Calc 41.45, Est GFR (MDRD) Af Amer 93, Est GFR (MDRD) Non-Af 77, BUN/Creatinine Ratio 12.8, Glucose 158 H, Calcium 8.3 L Physical Exam Const alert, oriented x3 and no apparent distress General Appearance: cooperative HEENT normocephalic, head/scalp atraumatic and moist oral mucous membranes Eyes PERRL and EOMs intact bilaterally Neck no lymphadenopathy and supple Lymph Lymphatic: no lymphadenopathy noted and no lymphedema noted Resp Resp Narrative: diminished breath sounds bibasally. on 2L of oxygen by nasal canula Cardio regular rate, regular rhythm, S1 normal heart sound, S2 normal heart sound and no murmurs GI normal to inspection, nondistended, normoactive bowel sounds, soft to palpation, non-tender and non-distended Extremity normal capillary refill, no clubbing, cyanosis or edema and no calf tenderness Skin General Skin Exam: no breakdown Neuro CN's II-XII intact bilaterally, no focal motor deficits and no sensory deficits noted Motor Exam: strength 5/5 throughout Psych thought process normal, cooperative and affect normal Appearance: appropriate Assessment & Plan Assessment/Plan (1) Acute UTI: (2) Hypoxia: PLAN: Plan #Altered mental status due to UTI * urianlysis showed 3+ bacteria. * admit to PCU * on IV ceftriaxone. * urine cultures and blood culture pending * PT/OT consult * fall precautions * #Hypoxia: * Patient was saturating in the 70s when she came into the ED. * now on 2L of oxygen by nasal canula * initial troponin was 146 but it subsequently trended downwards to 90. Was likely due to hypoxia. * CT of the chest was negative for any evidence of PE. * She did have 2D echo just on November 17, 2022 which showed EF of 60% with stage I diastolic dysfunction and no regional wall motion abnormality seen with normal left ventricular static function and stage 1 diastolic dysfunction, so will not repeat 2D echo * hypoxia likely due to metastatic lung cancer * BNP was mildly elevated at 282.9. Will benefit from some mild diuresis * ##History of non-small cell lung cancer with mets * Per oncology notes, she is known to have squamous cell carcinoma of the lung extending to the pleura in the left hilum as well as the mediastinal and left hilar lymph nodes. * Was noted to be amenable for surgery and began chemoradiation with weekly carboplatin and Taxol which finished on 10/28/2022 and also finished radiation on 11/03/2022. * To follow-up with oncology on outpatient basis. * #History of squamous cell carcinoma of the mouth: * CT of the neck and chest on 08/04/2022 picked up the lung mass. * She has had direct laryngoscopy and esophagoscopy and floor of mouth excision on 08/12/2022. * follow up with oncology on outpatient basis * * #History of breast cancer: Had ductal carcinoma in situ which was ER/[place] positive. S/p treatment #Hypertension: on metoprolol #History of A-fib: On metoprolol. On Eliquis. DVT prophylaxis: On Eliquis Hyperlipidemia: CODE STATUS: DNR CCA no intubation * Charges/Coding Visit Charges Inpatient E&M: 54072 Subs Hosp L2
[2022-12-05] MEDS: Atorvastatin Calcium 40 MG Tablet PO (20:34)
[2022-12-05] MEDS: Gabapentin 300 MG Capsule PO (20:34)
[2022-12-06 03:30] VITALS: BP 124/70; PULSE 106; RESP 18; TEMP 37.3; O2SAT 95
[2022-12-06 04:38] LABS: Hematocrit 28.5 % (37-47); Hemoglobin 8.6 g/dL (12.0-15.0); Mean Corp Hgb Conc 30.2 g/dL (32-36); Mean Corpuscular Volume 105.9 fL (81-99); Mean Platelet Vol. 9.2 fl (6.2-12.0); POSITIVE COUNT YES; POSITIVE MORPHOLOGY YES; Platelet Count 494 K/mm3 (150-450); RBC Distribution Width CV 19.9 % (11.6-14.6); RBC Distribution Width SD 77.4 fl (35.1-43.9); Red Blood Count 2.69 M/mm3 (4.2-5.4); White Blood Count 8.1 K/mm3 (4.4-11.0)
[2022-12-06] MEDS: Furosemide 40 MG/4 ML Vial IV (04:42)
[2022-12-06] MEDS: 0.9% Saline Lock 10 ML Syringe IV (04:42)
[2022-12-06 04:54] LABS: Differential Indicated MANUAL DIFF
[2022-12-06 05:57] LABS: Anion Gap 5 (5-15); BUN 8 mg/dL (7-18); BUN/Creat Ratio 11.1 RATIO (10-20); Calcium,Total 8.7 mg/dL (8.5-10.1); Chloride 106 mmol/L (98-107); Creatinine, Serum 0.72 mg/dL (0.55-1.02); EST Glomerular Filtration Rate 84 mL/min (>60); Est Glom Filt Rate - Afr Amer 102 mL/min (>60); Estimated Creatinine Clearance 41.45 ml/min; Glucose 107 mg/dL (74-106); Potassium 3.6 mmol/L (3.5-5.1); Sodium Level 138 mmol/L (136-145)
[2022-12-06 06:54] LABS: Eosinophil 6 % (0-5); Lymphocyte 10 % (19-41); Metamyelocyte 1 % (0-1); Monocyte 12 % (0-10); Myelocyte 4 % (0-0); Neutrophil-Band 5 % (0-5); Neutrophil-Segmented 62 % (47-70); Platelet Estimate ADEQUATE (ADEQ); Red Cell Morphology NORM C+C NORMAL (NORM C&C); Total Cells Counted 100 (MANUAL DIFF)
[2022-12-06 06:55] LABS: Absolute Lymphocyte Count 0.81 X10^3/uL (0.83-4.51); Absolute Neutrophil Count 5.5 X10^3/uL (2.0-7.7); Lymphocyte # 0.81 X10^3/ul (0.83-4.51); Neutrophil # 5.45 X10^3/uL (2.7-7.7)
[2022-12-06 09:24] VITALS: O2SAT 94
[2022-12-06 09:30] VITALS: BP 106/58; PULSE 105; RESP 18; TEMP 37.1; O2SAT 96
[2022-12-06] MEDS: Ceftriaxone 1 GM/50 ML BAG IV (09:43)
[2022-12-06 09:49] VITALS: BP 106/58; PULSE 105
[2022-12-06] MEDS: Allopurinol 300 MG Tablet PO (09:49)
[2022-12-06] MEDS: APIXABAN 5 MG TABLET PO (09:49)
[2022-12-06] MEDS: Gabapentin 100 MG Capsule PO (09:49)
[2022-12-06] MEDS: Folic Acid 1 MG Tablet 2 MG PO (09:49)
[2022-12-06] MEDS: Multivitamins,Ther W-Minerals Tablet 1 TABLET PO (09:49)
[2022-12-06] MEDS: Metoprolol(XL)Succ 50 MG Tablet PO (09:49)
[2022-12-06 11:37] VITALS: O2SAT 85; O2SAT 87; O2SAT 90; O2SAT 95
--- NOTE | 2022-12-06 11:50 | PCM.DC ---
Discharge Instructions Diet Discharge Diet: Low fat / Low cholesterol Activity Discharge Activity: Return to Normal Activity Weight Bearing Status: Weight bearing as tolerated Dressing / Incision Call your doctor if you observe: Fever of 101 or Higher, Shortness of breath, Dizziness, Swelling in the ankles and Chest pain Follow Up Care Test Results: Test results from this visit will be discussed in further detail at your follow-up appointment, if applicable. Discharge Plan Admission Admit Date/Time: 12/04/22 11:28 Primary Reason for Your Visit: UTI Attending Provider: Mary eJfferson Primary Care Provider: Walter Emanuel Chi Instructions Patient Instructions: Urinary Tract Infections in Women, Oxygen Supplemental Additional Instructions / Restrictions: use oxygen 2-3L as needed for shortness of breath. Follow up with your oncologist at [facility] within 1-2 weeks Discharge Orders/Prescriptions Prescriptions: New cefdinir 300 mg capsule 300 mg PO BID Qty: 10 0RF Continued atorvastatin 40 mg tablet 40 mg PO QHS Qty: 90 allopurinol 300 mg tablet 300 mg PO DAILY folic acid 1 mg tablet 2 mg PO DAILY gabapentin 300 mg capsule 300 mg PO QHS Eliquis 5 mg tablet 5 mg PO BID Qty: 60 11RF gabapentin 100 mg capsule 100 mg PO DAILY Rx Instructions: QAM A Thru Z High Potency Tablet 1 tab PO DAILY potassium 99 mg tablet 99 mg PO DAILY metoprolol succinate 50 mg tablet extended release 24 hr 50 mg PO DAILY Referrals / Follow Up: Walter Emanuel Chi, MD [Primary Care Provider] - Within 2 Weeks Disposition Disposition (needs filled in before D/C Order can be placed): Home, Self Care
--- NOTE | 2022-12-06 11:52 | DS.PCM_ITS ---
Providers Date of Admission: 12/04/22 Date of Discharge: 12/06/22 Primary Care Physician: Dr. Walter Emanuel MD Reason For Visit: ALTERED MENTAL STATUS Diagnosis Discharge Diagnosis (1) Acute UTI: Status: Acute Code(s): N39.0 - Urinary tract infection, site not specified (2) Hypoxia: Status: Acute Code(s): R09.02 - Hypoxemia Plan #Altered mental status due to UTI * urianlysis showed 3+ bacteria. * admit to PCU * on IV ceftriaxone. * urine cultures and blood culture pending * PT/OT consult * fall precautions * #Hypoxia: * Patient was saturating in the 70s when she came into the ED. * now on 2L of oxygen by nasal canula * initial troponin was 146 but it subsequently trended downwards to 90. Was likely due to hypoxia. * CT of the chest was negative for any evidence of PE. * She did have 2D echo just on November 17, 2022 which showed EF of 60% with stage I diastolic dysfunction and no regional wall motion abnormality seen with normal left ventricular static function and stage 1 diastolic dysfunction, so will not repeat 2D echo * hypoxia likely due to metastatic lung cancer * BNP was mildly elevated at 282.9. Will benefit from some mild diuresis * ##History of non-small cell lung cancer with mets * Per oncology notes, she is known to have squamous cell carcinoma of the lung extending to the pleura in the left hilum as well as the mediastinal and left hilar lymph nodes. * Was noted to be amenable for surgery and began chemoradiation with weekly carboplatin and Taxol which finished on 10/28/2022 and also finished radiation on 11/03/2022. * To follow-up with oncology on outpatient basis. * #History of squamous cell carcinoma of the mouth: * CT of the neck and chest on 08/04/2022 picked up the lung mass. * She has had direct laryngoscopy and esophagoscopy and floor of mouth excision on 08/12/2022. * follow up with oncology on outpatient basis * * #History of breast cancer: Had ductal carcinoma in situ which was ER/CO positive. S/p treatment #Hypertension: on metoprolol #History of A-fib: On metoprolol. On Eliquis. DVT prophylaxis: On Eliquis Hyperlipidemia: CODE STATUS: DNR CCA no intubation * Medications at Discharge Home Medications atorvastatin 40 mg tablet 40 mg PO QHS cholesterol #90 tabs 02/20/19 allopurinol 300 mg tablet 300 mg PO DAILY 08/02/20 folic acid 1 mg tablet 2 mg PO DAILY 09/03/22 gabapentin 300 mg capsule 300 mg PO QHS 09/03/22 gabapentin 100 mg capsule 100 mg PO DAILY 09/25/22 apixaban 5 mg tablet (Eliquis) 5 mg PO BID #60 tabs 11/24/22 metoprolol succinate 50 mg tablet,extended release 24 hr 50 mg PO DAILY 12/04/22 itucsseqaydi-woshzkuk-yauhzo tablet (A Thru Z High Potency tablet) 1 tab PO DAILY 12/04/22 potassium 99 mg tablet 99 mg PO DAILY 12/04/22 cefdinir 300 mg capsule 300 mg PO BID #10 caps 12/06/22 Hospital Course Operations None Procedures None Summary of Care Provided Minutes Spent on Discharge: 56 Hospital Course: OSMIN DAN, is a 72 F with a PMH as outlined including nonsmall cell cancer of the lung who presents via the ED on 12/04/2022. She was visiting with family yesterday. When she woke up this morning she was noted to be confused and disoriented. There was concern that she might have a facial droop. Family was concerrned so they brought her in to the ED. also noted she was hypotensive with systolic BP in the 90s. Patient tells me her blood pressure usually runs low. She denied any fever or chills and denied any urinary complaints. She denied any cough or chest pain or palpitations. says she usually slept in a recliner and was slumped to the side when he saw her and he thought she had a mild droop. She had an MRI about 2 months ago which was negative for any evidence of brain mets. Review of systems otherwise negative. She says she was due for follow-up with her oncologist in [facility] on the day she was admitted. Vitals in the ED showed pulse rate of 102, respiratory rate of 20 and temperature of 98.1 Fahrenheit. She had been hypoxic in the 70s when she came to the ED and at the time of my review was saturating at 92% on 2 L of oxygen. CBC was significant for hemoglobin of 8.4 with platelets of 488. WBC was 9.6. INR is 1.8 and chemistry shows sodium of 136 with bicarb of 25 and potassium of 4.1. Initial troponin was 146 and BNP was 282.9. Urinalysis showed 3+ bacteria. CTA of the chest showed no evidence of PE or aortic dissection and showed a left lower lobe mass with adjacent atelectatic changes and patchy groundglass opacities or infiltrates in both upper lobes superimposed on chronic fibrotic changes as well as right upper lobe nodule. She has been admitted to be managed for altered mental status likely due to UTI and hypoxia likely due to metastatic lung cancer. She was started on IV ceftriaxone. Urine culture grew E. Coli. She improved and felt much better. She had a walking pulse ox which showed that she required 2L of oxygen at rest and 3L with ambulation. She was discharged home on 12/06/2022. She is to follow up with her PCP and oncologist within 1-2 weeks. She was discharged home on PO cefdinir 300mg bid x 5 days. Patient seen and examined prior to discharge. He had no active complaints and had an uneventful night. Review of systems is otherwise negative. Labs and vitals reviewed. Home meds reviewed and reconciled. Physical Exam Const alert, oriented x3 and no apparent distress General Appearance: cooperative and comfortable HEENT normocephalic, head/scalp atraumatic, hearing grossly normal bilaterally and moist oral mucous membranes Mouth: oral and palatal mucosa normal Eyes PERRL, EOMs intact bilaterally and conjunctivae normal Neck no lymphadenopathy and supple Lymph Lymphatic: no lymphadenopathy noted and no lymphedema noted Resp Resp Narrative: diminished breath sounds bibasally. on 2L of oxygen by nasal canula Cardio regular rate, regular rhythm, S1 normal heart sound, S2 normal heart sound and no murmurs GI normal to inspection, nondistended, normoactive bowel sounds, soft to palpation, non-tender and non-distended Extremity normal to inspection, full ROM, normal capillary refill, no clubbing, cyanosis or edema and no calf tenderness Skin no rashes or lesions noted General Skin Exam: no breakdown Neuro oriented x3, CN's II-XII intact bilaterally, moves all extremities, no focal motor deficits and no sensory deficits noted Sensorium / Orientation: awake Motor Exam: strength 5/5 throughout Psych thought process normal, cooperative and affect normal Appearance: appropriate Medical Records Data Medical Nutrition Assessment Dietitian: Malnutrition Criteria Met Start: 12/04/22 16:37 Freq: Status: Active Protocol: Document 12/04/22 16:38 SLA (Rec: 12/04/22 16:38 SLA Desktop) Nutrition Malnutrition Evidence of Malnutrition Exists Yes Malnutrition (severe): Chronic Evidenced By Suboptimal Energy Intake ( Severe),Weight Loss (Severe) Clinical Problem Chronic Disease or Condition Related Malnutrition Etiology related to breast/lung cancer and pt having inadequate energy intake Signs/Symptoms as evidenced by 11/18/22 wt 62. 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 Status Active Problem Recommendation Dietitian Recommendations/Changes Will liberalize diet to Regular d/t signs and symptoms of malnutrition Encouraged pt to have family bring protein bars from home Encouraged pt to order extra at meals to eat between meals and to try to eat small frequent meals/snacks at home. Weight / BMI Weight Weight: 123 lb 14.397 oz Body Mass Index (BMI) 21.9 ABG / Lab / Microbiology Data 12/06/22 04:15 12/06/22 04:15 Laboratory: Laboratory Results - last 24 hr 12/06/22 04:15: WBC 8.1, RBC 2.69 L, Hgb 8.6 L, Hct 28.5 L, MCV 105.9 H, MCH 32.0, MCHC 30.2 L, RDW Std Deviation 77.4 H, RDW Coeff of Blanca 19.9 H, Plt Count 494 H, MPV 9.2, Neut % (Auto) Not Reportable, Absolute Neuts (auto) 5.5, Absolute Lymphs (auto) 0.81 L, Total Counted 100, Neutrophils % (Manual) 62, Band Neutrophils % 5, Lymphocytes % (Manual) 10 L, Monocytes % (Manual) 12 H, Eosinophils % (Manual) 6 H, Metamyelocytes % 1, Myelocytes % 4 H, Diff Path Review May foll, Platelet Estimate ADEQUATE, RBC Morphology NORM C+C, Sodium 138, Potassium 3.6, Chloride 106, Carbon Dioxide 27.0, Anion Gap 5, BUN 8, Creatinine 0.72, Estim Creat Clear Calc 41.45, Est GFR (MDRD) Af Amer 102, Est GFR (MDRD) Non-Af 84, BUN/Creatinine Ratio 11.1, Glucose 107 H, Calcium 8.7 Microbiology: Microbiology 12/04/22 07:54 Blood Culture (Wb) - Anticubital Right Blood Culture - Preliminary No growth in 48 hours. 12/04/22 07:31 Blood Culture (Wb) - Right Forearm Blood Culture - Preliminary No growth in 48 hours. 12/04/22 07:31 Urine, Clean Catch Urine Culture - Final Presumptive E. coli D/C Instructions Discharge Diet: Low fat / Low cholesterol Discharge Activity: Return to Normal Activity Weight Bearing Status: Weight bearing as tolerated Call your doctor if you observe: Fever of 101 or Higher, Shortness of breath, Dizziness, Swelling in the ankles and Chest pain Meaningful Use Info Meaningful Use Diagnoses (Choose all that apply): None applicable Discharge Plan Admission Admit Date/Time: 12/04/22 11:28 Primary Reason for Your Visit: UTI Attending Provider: Mary Jefferson Primary Care Provider: Walter Emanuel Chi Instructions Patient Instructions: Urinary Tract Infections in Women, Oxygen Supplemental Additional Instructions / Restrictions: use oxygen 2-3L as needed for shortness of breath. Follow up with your oncologist at [facility] within 1-2 weeks Discharge Orders/Prescriptions Prescriptions: New cefdinir 300 mg capsule 300 mg PO BID Qty: 10 0RF Continued atorvastatin 40 mg tablet 40 mg PO QHS Qty: 90 allopurinol 300 mg tablet 300 mg PO DAILY folic acid 1 mg tablet 2 mg PO DAILY gabapentin 300 mg capsule 300 mg PO QHS Eliquis 5 mg tablet 5 mg PO BID Qty: 60 11RF gabapentin 100 mg capsule 100 mg PO DAILY Rx Instructions: QAM A Thru Z High Potency Tablet 1 tab PO DAILY potassium 99 mg tablet 99 mg PO DAILY metoprolol succinate 50 mg tablet extended release 24 hr 50 mg PO DAILY Referrals / Follow Up: Walter Emanuel Chi, MD [Primary Care Provider] - Within 2 Weeks Disposition Disposition (needs filled in before D/C Order can be placed): Home, Self Care Charges/Coding Visit Charges Inpatient E&M: 92290 Disch Hosp >30min
[2022-12-06 12:50] VITALS: BP 106/58; PULSE 105; RESP 18; TEMP 37.1; O2SAT 96
[2022-12-07 08:41] LABS: Pathologist Review Reviewed
[2022-12-08 08:51] LABS: Pathologist Review Reviewed
[2022-12-08 08:53] LABS: Pathologist Review Reviewed
== END 2022-12-06 15:02 | disposition home or self-care (01) | DRG 690 ==
LOC: ED 11:08 → PCU 11:56
PROVIDERS: Admitting Provider Student in an Organized Health Care Education/Training Program; Emergency Provider Emergency Medicine; PCP Family Medicine Geriatric Medicine; Visit Provider Student in an Organized Health Care Education/Training Program
DX: N39.0 Urinary tract infection, site not specified (principal); C77.1 Secondary and unspecified malignant neoplasm of intrathoracic lymph nodes; C34.92 Malignant neoplasm of unspecified part of left bronchus or lung; I48.0 Paroxysmal atrial fibrillation; I10 Essential (primary) hypertension; E78.5 Hyperlipidemia, unspecified; R00.0 Tachycardia, unspecified; R09.02 Hypoxemia; R77.8 Other specified abnormalities of plasma proteins; Z66 Do not resuscitate; Z79.01 Long term (current) use of anticoagulants; Z79.899 Other long term (current) drug therapy; Z85.3 Personal history of malignant neoplasm of breast; Z87.891 Personal history of nicotine dependence
CPT/HCPCS: 36415; 70450; 71045; 71275; 80048; 80076; 81001; 83605; 83690; 83735; 83880; 84484; 85025; 85610; 85730; 87040; 87086; 87088; 87186; 93005; 94640; 97166; 97802; 99252; 99285; J7030; J7040; Q9967; A4216; G0463; J1940

== ENCOUNTER → 2022-12-09 | Outpatient (CLI) | payer MEDICARE, SELFPAY ==
--- NOTE | 2022-12-09 12:50 | CT_ITS ---
STUDY: CT CHEST T ABDOMEN WITH CONTRAST REASON FOR EXAM: Female, 72 years old. History of lung CA RADIATION DOSAGE (If Supplied By Facility): CTDIvol = ( 11.63 ) mGy, DLP = ( 821.64 ) mGycm TECHNIQUE: Transaxial imaging was performed following intravenous administration of IV 100mL Isovue-300. Multiplanar coronal and sagittal images were reformatted. Individualized dose optimization techniques were used for this CT. COMPARISON: 12/04/2022 FINDINGS: CHEST Lungs are hyperexpanded with chronic interstitial changes in both lung fernandez, groundglass opacifications and emphysematous blebs. Stable nonspecific pleural thickening. Stable appearance of a noncalcified oval nodule in the left lower lobe suspicious for primary or metastatic lesion. Stable 7 mm spiculated nodule in the right upper lobe on axial image 22 also concerning for metastasis. Normal heart and pericardium. There are calcifications of the coronary arteries. Normal mediastinum. Normal hilar regions. Normal unenhanced pulmonary arteries. Normal aorta arch and descending thoracic aorta. There are multi-level degenerative changes of the thoracic spine. ABDOMEN Normal liver. Normal gallbladder and extrahepatic biliary system. Normal spleen. Normal pancreas. Normal bilateral adrenal glands. Normal right kidney. Normal left kidney. Normal visualized stomach. Normal small intestine. There are multiple colonic diverticula consistent with diverticulosis. The appendix is visualized and appears normal. Appendix seen on coronal recon images 52 through 64 Peripheral calcifications noted in the abdominal aorta. [place] abdominal aortic aneurysm has been reduced with stent graft. Stable small endoleaks noted within the graft, no extravasation of contrast outside the lumen of the aorta is noted. Normal inferior vena cava. Normal retroperitoneum. Normal abdominal wall. There are diffuse degenerative changes of the visualized lumbar spine. CT/CT Chest AND Abd W/ Contrast IMPRESSION: Hyperexpanded lungs with emphysematous blebs and chronic interstitial changes. Diffuse groundglass opacifications noted in both lung fernandez. Stable nonspecific pleural thickening. Stable suspicious noncalcified nodular densities in the right apex and left lower lobe. No interval change since the previous study, no new suspicious mass or nodule noted Remote CABG Degenerative bony changes No suspicious solid organ abnormality Colonic diverticulosis Date of infrarenal abdominal aortic aneurysm has been stabilized with a stent graft, no complications noted Normal appendix visualized Electronically Signed: William Wright MD at 13:49 EDT ,
[2022-12-09] MEDS: 0.9% Saline Lock 10 ML Syringe IV (13:09)
== END | disposition home or self-care (01) ==
LOC: CT 12:49
PROVIDERS: PCP Family Medicine Geriatric Medicine; Referring Provider Internal Medicine Medical Oncology; Visit Provider Internal Medicine Medical Oncology
DX: C34.92 Malignant neoplasm of unspecified part of left bronchus or lung (principal)
CPT/HCPCS: 71260; 74160; Q9967; A4216

== ENCOUNTER → 2022-12-16 | Outpatient (CLI) | payer MEDICARE, SELFPAY ==
[2022-12-16 12:09] LABS: Hematocrit 36.2 % (37-47); Hemoglobin 10.5 g/dL (12.0-15.0); Mean Corpuscular Volume 106.8 fL (81-99); Mean Platelet Vol. 9.4 fl (6.2-12.0); POSITIVE COUNT YES; POSITIVE DIFFERENTIAL YES; POSITIVE MORPHOLOGY YES; Platelet Count 638 K/mm3 (150-450); RBC Distribution Width CV 19.1 % (11.6-14.6); RBC Distribution Width SD 75.2 fl (35.1-43.9); Red Blood Count 3.39 M/mm3 (4.2-5.4); White Blood Count 14.4 K/mm3 (4.4-11.0)
[2022-12-16 12:11] LABS: Differential Indicated MANUAL DIFF
[2022-12-16 12:32] LABS: ALB/GLOB Ratio 0.4 RATIO (0.9-2.4); AST(SGOT) 30 U/L (15-37); Alanine Aminotransfer ALT/SGPT 39 U/L (13-56); Albumin, Serum 2.3 g/dL (3.2-5.0); Alkaline Phosphatase 129 U/L (45-117); Anion Gap 5 (5-15); BUN 17 mg/dL (7-18); BUN/Creat Ratio 18.1 RATIO (10-20); Calcium,Total 9.7 mg/dL (8.5-10.1); Chloride 105 mmol/L (98-107); Creatinine, Serum 0.94 mg/dL (0.55-1.02); EST Glomerular Filtration Rate 62 mL/min (>60); Est Glom Filt Rate - Afr Amer 75 mL/min (>60); Globulin 5.2 g/dL (2.2-4.2); Glucose 110 mg/dL (74-106); Potassium 4.8 mmol/L (3.5-5.1); Protein, Total 7.5 g/dL (6.4-8.2); Sodium Level 138 mmol/L (136-145)
[2022-12-16 12:35] LABS: Neutrophil-Band 2 % (0-5); Neutrophil-Segmented 75 % (47-70); Total Cells Counted 100 (MANUAL DIFF)
[2022-12-16 12:36] LABS: Anisocytosis 2+; Basophil 1 % (0-1); Lymphocyte 10 % (19-41); Macrocytosis 1+; Microcytosis 1+; Monocyte 8 % (0-10); Myelocyte 4 % (0-0); Platelet Estimate ADEQUATE (ADEQ)
[2022-12-16 12:37] LABS: Absolute Lymphocyte Count 1.44 X10^3/uL (0.83-4.51); Absolute Neutrophil Count 11.1 X10^3/uL (2.0-7.7)
[2022-12-17 10:44] LABS: Pathologist Review Reviewed
== END | disposition home or self-care (01) ==
LOC: POLAB3 11:26
PROVIDERS: PCP Family Medicine Geriatric Medicine; Visit Provider Family Medicine Geriatric Medicine
DX: R55 Syncope and collapse (principal)
CPT/HCPCS: 36415; 80053; 85025

== ENCOUNTER → 2022-12-16 | Outpatient (CLI) | payer MEDICARE, SELFPAY ==
--- NOTE | 2022-12-16 11:49 | CT_ITS ---
STUDY: CT BRAIN WITHOUT CONTRAST REASON FOR EXAM: Female, 72 years old. HEAD INJURY due to a fall. Patient is on anticoagulation. RADIATION DOSAGE (If Supplied By Facility): CTDIvol = ( 44.99 ) mGy, DLP = ( 762.36 ) mGycm TECHNIQUE: Transaxial CT imaging of the brain was performed without administration of intravenous contrast material. Individualized dose optimization techniques were used for this CT. COMPARISON: Comparison is made with prior study December 04, 2022. FINDINGS: Normal soft tissue structures. Normal calvarium. There is mild cerebral atrophy with widening of the extra-axial spaces and ventricular dilatation. There are areas of decreased attenuation within the white matter tracts of the supratentorial brain, consistent with microvascular disease changes. Normal basal ganglia and thalami. Normal brainstem. Normal cerebellum. There is no intracranial hemorrhage. There are no findings of an acute ischemic infarction. Atherosclerotic plaque formation of the cavernous portions of the internal carotid arteries bilaterally. Normal visualized paranasal sinuses. CT/Brain/Head without Contrast IMPRESSION: Chronic involutional changes of the brain. Electronically Signed: Joseph Ott MD at 12:43 EDT ,
== END | disposition home or self-care (01) ==
LOC: CT 11:37
PROVIDERS: PCP Family Medicine Geriatric Medicine; Referring Provider Family Medicine Geriatric Medicine; Visit Provider Family Medicine Geriatric Medicine
DX: S09.90XA Unspecified injury of head, initial encounter (principal); X58.XXXA Exposure to other specified factors, initial encounter
CPT/HCPCS: 70450

== ENCOUNTER → 2023-01-12 | Outpatient (CLI) | payer MEDICARE, SELFPAY ==
[2023-01-12 15:06] LABS: Absolute Lymphocyte Count 1.13 X10^3/uL (0.83-4.51); Absolute Neutrophil Count 9.4 X10^3/uL (2.0-7.7); Basophil# 0.11 X10^3/uL; Basophil% 0.9 % (0-1); Eosinophil# 0.19 X10^3/uL; Eosinophils% 1.5 % (0-5); Hematocrit 37.3 % (37-47); Hemoglobin 11.1 g/dL (12.0-15.0); Lymphocyte # 1.13 X10^3/ul (0.83-4.51); Mean Corp Hgb Conc 29.8 g/dL (32-36); Mean Corpuscular Hgb 29.8 pg (27.0-32.0); Mean Platelet Vol. 9.3 fl (6.2-12.0); Monocyte# 1.23 X10^3/uL; Monocyte% 9.8 % (0-10); NRBC Flagged by Analyzer 0 % (0-5); Neutrophil # 9.35 X10^3/uL (2.7-7.7); POSITIVE MORPHOLOGY YES; Platelet Count 422 K/mm3 (150-450); RBC Distribution Width CV 18.1 % (11.6-14.6); RBC Distribution Width SD 67.1 fl (35.1-43.9); Red Blood Count 3.73 M/mm3 (4.2-5.4); White Blood Count 12.6 K/mm3 (4.4-11.0)
[2023-01-12 15:07] LABS: Differential Indicated SCAN CRITERIA MET
[2023-01-12 15:20] LABS: Vitamin D,25 Hydroxy 33.7 ng/mL
[2023-01-12 15:27] LABS: Anisocytosis 1+
[2023-01-12 15:28] LABS: ALB/GLOB Ratio 0.4 RATIO (0.9-2.4); AST(SGOT) 48 U/L (15-37); Alanine Aminotransfer ALT/SGPT 55 U/L (13-56); Albumin, Serum 2.2 g/dL (3.2-5.0); Alkaline Phosphatase 178 U/L (45-117); Anion Gap 2 (5-15); BUN 15 mg/dL (7-18); BUN/Creat Ratio 14.7 RATIO (10-20); Chloride 103 mmol/L (98-107); Cholesterol 156 mg/dL (200); Creatinine, Serum 1.02 mg/dL (0.55-1.02); EST Glomerular Filtration Rate 56 mL/min (>60); Est Glom Filt Rate - Afr Amer 68 mL/min (>60); Globulin 5.5 g/dL (2.2-4.2); Glucose 87 mg/dL (74-106); High Density Lipoprotein 29 mg/dL; Potassium 4.3 mmol/L (3.5-5.1); Protein, Total 7.7 g/dL (6.4-8.2); Sodium Level 135 mmol/L (136-145); Thyroid Stim Hormone (TSH) 2.65 uIU/mL (0.358-3.74); Triglycerides 247 mg/dL; Uric Acid 3.1 mg/dL (2.6-6.0); Very Low Density Lipoprotein 49 mg/dL (5-40)
[2023-01-12 15:34] LABS: International Normalized Ratio 2.9; Prothrombin Time (Protime)PT. 30.3 SECONDS (11.7-14.9)
== END | disposition home or self-care (01) ==
LOC: POLAB3 14:09
PROVIDERS: Nurse Practitioner Gerontology; PCP Family Medicine Geriatric Medicine; Visit Provider Family Medicine Geriatric Medicine
DX: I10 Essential (primary) hypertension (principal); I48.91 Unspecified atrial fibrillation; E78.5 Hyperlipidemia, unspecified; E55.9 Vitamin D deficiency, unspecified; M10.9 Gout, unspecified; Z79.01 Long term (current) use of anticoagulants
CPT/HCPCS: 36415; 80053; 80061; 82306; 84443; 84550; 85025; 85610

== ENCOUNTER → 2023-02-01 | Outpatient (CLI) | payer MEDICARE, SELFPAY ==
--- NOTE | 2023-02-01 08:14 | CT_ITS ---
STUDY: CT CHEST T ABDOMEN WITH CONTRAST REASON FOR EXAM: Female, 72 years old. Known lung cancer RADIATION DOSAGE (If Supplied By Facility): CTDIvol = ( 27.91 ) mGy, DLP = ( 737.34 ) mGycm TECHNIQUE: Transaxial imaging was performed following intravenous administration of IV 100mL Isovue-370. Multiplanar coronal and sagittal images were reformatted. Individualized dose optimization techniques were used for this CT. COMPARISON: 12/09/2022 FINDINGS: CHEST Thyroid gland is unremarkable. Lung windows show underlying emphysema with bleb formation throughout both lung fernandez. Significant change noted in the left lung fernandez since the previous study with development of diffuse airspace opacifications along with free flowing and loculated left pleural effusion. This could represent an infiltrate with associated effusion but if the patient has undergone recent radiation therapy, this could be sequela from that treatment. Regardless, the opacifications and pleural effusions are new since the previous study. There is associated atelectasis as there is now volume loss in the left lung fernandez since previous study with slight right to left midline shift. The right lung shows patchy airspace opacifications in both lung fernandez essentially unchanged from the previous study these are suggestive of interstitial changes with likely small airways inflammation, no right pleural effusion or atelectasis. The right lung is essentially unchanged from the previous study. Normal heart and pericardium. There are calcified coronary vessels. There is a more pronounced subcarinal lymph node on axial image 46 measuring 1.43 cm in short axis dimension, this could be reactive. No suspicious perihilar or axillary lymphadenopathy. Normal enhanced pulmonary arteries. Normal aorta arch and descending thoracic aorta. There are multi-level degenerative changes of the thoracic spine. ABDOMEN Normal liver. Normal gallbladder and extrahepatic biliary system. Normal spleen. Normal pancreas. Normal bilateral adrenal glands. No obstructive uropathy, or suspicious solid renal lesions, there are stable simple renal cysts. Stable small retrocardiac hiatal hernia Normal small intestine. Routine stool noted throughout the colon with scattered colonic diverticula, no CT evidence of acute diverticulitis. The appendix is visualized and appears normal. Appendix seen on axial images 65 through 73 The [place] abdominal aorta shows peripheral calcifications and aneurysmal dilatation which has been stabilized with an aortic stent graft. Stent graft is patent, there is evidence of endoleak but no extravasation of contrast outside the lumen of the aorta. Normal inferior vena cava. Normal retroperitoneum. Normal abdominal wall. There are diffuse degenerative changes of the visualized lumbar spine, and pelvis. CT/CT Chest AND Abd W/ Contrast IMPRESSION: Significant change in the left hemithorax since the previous study. There is now diffuse airspace opacification throughout the left hemithorax with associated free flowing and loculated left pleural effusion. Findings could be due to sequela from radiation therapy but these findings could also be seen with a diffuse pneumonia and associated effusions. There is also some associated atelectasis as there is volume loss in the left hemithorax and slight [id number] mediastinal shift Right lung is unchanged from the previous study and continues to show diffuse faint airspace opacifications which also may be sequela from previous radiation therapy could also be due to small airways inflammation. There is underlying emphysema but no organized infiltrate, effusion or significant change since the previous study More pronounced and conspicuous subcarinal lymph node measuring 1.4 cm in short axis dimension this is increased from 1 cm in short axis dimension on the previous study. No new suspicious mediastinal, axillary or perihilar adenopathy Calcified coronary vessels No suspicious solid organ abnormality, stable renal cysts, no specific follow-up needed Diverticulosis Stable appearance of stent graft within the [place] aorta Degenerative bony changes Electronically Signed: William Wright MD at 10:27 EST ,
[2023-02-01] MEDS: 0.9 % NaCl (Sterile) Posiflush 10 mL IV (08:45)
== END | disposition home or self-care (01) ==
LOC: CT 08:14
PROVIDERS: PCP Family Medicine Geriatric Medicine; Referring Provider Internal Medicine Medical Oncology; Visit Provider Internal Medicine Medical Oncology
DX: C34.92 Malignant neoplasm of unspecified part of left bronchus or lung (principal)
CPT/HCPCS: 71260; 74160; Q9967; A4216

== ENCOUNTER 2023-02-10 09:24 | Outpatient (RCR) | payer MEDICARE, SELFPAY ==
[2023-01-21 13:44] LABS: International Normalized Ratio 1.8; Prothrombin Time (Protime)PT. 20.7 SECONDS (11.7-14.9)
[2023-01-28 12:32] LABS: International Normalized Ratio 2.4; Prothrombin Time (Protime)PT. 26.5 SECONDS (11.7-14.9)
[2023-02-10 10:58] LABS: Prothrombin Time (Protime)PT. 22.5 SECONDS (11.7-14.9)
== END 2023-02-11 18:00 | disposition home or self-care (01) ==
LOC: LAB 09:24
PROVIDERS: PCP Family Medicine Geriatric Medicine; Referring Provider Nurse Practitioner Gerontology; Visit Provider Nurse Practitioner Gerontology
DX: Z79.01 Long term (current) use of anticoagulants (principal)
CPT/HCPCS: 36415; 85610

== ENCOUNTER → 2023-02-17 | Outpatient (CLI) | payer MEDICARE, SELFPAY ==
--- NOTE | 2023-02-17 08:55 | ART_ITS ---
Reason For Study: AAA w/ repair Procedure A bilateral lower extremity continuous wave Doppler with analog waveform analysis and ankle brachial indexes. Left Segmental Pressures Left brachial= 180mmHg. Left posterior tibial artery = 162mmHg. Left dorsalis pedis artery = 190mmHg. The left dorsalis pedis waveforms are triphasic. The left posterior tibial artery waveforms are biphasic. Right Segmental Pressures Right brachial= 173mmHg. Right posterior tibial artery = 170mmHg. Right dorsalis pedis artery = 188mmHg. The right dorsalis pedis waveforms are triphasic. The right posterior tibial artery waveforms are biphasic. Indices The right ankle brachial index by the dorsalis pedis is 1.04. The right ankle brachial index by the posterior tibial artery is 0.94. The left ankle brachial index by the dorsalis pedis is 1.06. The left ankle brachial index by the posterior tibial artery is 0.90. VL/Ankle Brachial Index Interpretation Summary Normal ELEUTERIO 1.04 and 1.06. Ordering Physician: Reinaldo Morales Referring Physician: Walter Emanuel Chi Performed By: Cristine Mckeon RVT
--- NOTE | 2023-02-17 08:55 | AAVD_ITS ---
Reason For Study: AAA w/ repair Aorta Measurements Aorta Doppler Measurements Proximal aorta measures2.37 x 2.30cm. in cross- Peak systolic flow velocities within the proximal sectional axis. aorta measure 47.2 cm/sec. Proximal aorta measures2.40cm. in longitudinal Peak systolic flow velocities within the mid aorta axis. measure 26.4 cm/sec. Mid aorta measures2.01 x 2.00cm. in cross- Aorta distal, Limb 1, 45.3 cm/sec. sectional axis. Aorta distal, Limb 2, 25.4 cm/sec. Mid aorta measures2.00cm. in longitudinal axis. Distal aorta, Limb 1, 1.40 x 1.44 x 1.31 cm Distal aorta, Limb 2, 1.22 x 1.23 x 1.17 cm. Distal aorta, residual sac, 3.47 x 3.89 x 3.33 cm. Left Iliac Artery Left iliac artery measures 2.10 x 2.11 cm. in the cross-sectional axis. Left iliac artery measures 2.11 cm. in the longitudinal axis. Peak systolic velocity in the left iliac artery measures 23.4 cm/sec. Right Iliac Artery Right iliac artery measures 1.00 x 0.96 cm. in the cross-sectional axis. Right iliac artery measures 1.07 cm. in the longitudinal axis. Peak systolic velocity in the right iliac artery measures 50 cm/sec. Procedure Aorta IVC Iliac vasculature or bypass grafts [id number]. Exam performed in department. VL/Abd Aortic/IVC Duplex scan Interpretation Summary No endoleak and patent endograft. Ordering Physician: Reinaldo Morales Referring Physician: Walter Emanuel Chi Performed By: Cristine Mckeon RVT
== END | disposition home or self-care (01) ==
LOC: CVS 08:55
PROVIDERS: PCP Family Medicine Geriatric Medicine; Referring Provider Surgery Vascular Surgery; Visit Provider Surgery Vascular Surgery
DX: I73.9 Peripheral vascular disease, unspecified (principal); I71.43 Infrarenal abdominal aortic aneurysm, without rupture; Z95.828 Presence of other vascular implants and grafts; I10 Essential (primary) hypertension
CPT/HCPCS: 93922; 93978

== ENCOUNTER 2023-02-24 10:46 | Outpatient (RCR) | payer MEDICARE, SELFPAY ==
[2023-02-24 11:58] LABS: International Normalized Ratio 2.4; Prothrombin Time (Protime)PT. 26.3 SECONDS (11.7-14.9)
== END 2023-03-14 18:00 | disposition home or self-care (01) ==
LOC: LAB 10:46
PROVIDERS: PCP Family Medicine Geriatric Medicine; Referring Provider Nurse Practitioner Gerontology; Visit Provider Nurse Practitioner Gerontology
DX: Z79.01 Long term (current) use of anticoagulants (principal); I48.91 Unspecified atrial fibrillation
CPT/HCPCS: 36415; 85610

== ENCOUNTER 2023-02-24 13:30 | Outpatient (RCR) | payer MEDICARE, SELFPAY ==
--- NOTE | 2023-01-20 16:20 | HP.PTEVAL ---
Patient's Visit Information Visit Information Visit Information: OSMIN DAN is a 72 year old F referred to Physical Therapy by Dr. Walter Emanuel MD with a diagnosis of multiple falls. Date of Evaluation: 01/20/23 Physical Therapist: STEVE Ann Visit Plan Frequency: 2x /Week Duration: 3 Months Plan: 2X/ week for 8 weeks for LE strength, functional balance with and without head turns and compliant/non compliant surfaces, gait training, stretching of gastroc with heel and toe raises with HEP Subjective Subjective: All summer she was in Chemo and Radiation and she did not use her legs a lot cause she was sick most of the time. She has oral CA, lung CA, and in lymph nodes. She has another scan on the . She started in Nov she started falling cause her legs would go to mush. She asked Dr Emanuel if it was because it was from disuse. He suggested physical therapy. She is not dizzy. She has a lot of back pain. She has pain patches on right now. She has a lot back aches. It is worse if staying in one place at a time. She sleeps sitting up. She is on oxygen and has to sleep upright (recliner). Her energy level is somedays good and somedays not. She does not have stairs at home. She does no form of exercise. Pain back pain: Pain Intensity (Out of 10): 6 Objective Objective: Gait: Pt walks with increase veering, shorter stride length Sit to stand: Pt is able to without the use of her UE's but it is a struggle and needs a wider JULES Pt struggles with toes up X 5 (tightness in gastroc B) and able X 5 heels ups LE MMT: R hip flex 11.4 and L 9.6 R knee ext 13.3 and L 14.4 R knee flex 8,8 and L 9# FGA: 10 CATSIB 80/120 Balance/Special Test Scores Functional Gait Assessment Score: 10 % Disability: 66.6700 CATSIB Score (Max score 120 seconds): 80 Lower Extremity Functional Score: 48 Goals Goal 1:: I HEP Goal Time Frame: 6-8 Weeks Goal 2:: Increase balance (FGA score at eval 10) Goal Time Frame: 6-8 Weeks Goal 3:: Increase CATSIB score (score was 80 at eval). Goal Time Frame: 6-8 Weeks Goal 4:: Increase LE strength (MMT at eval: R hip flex 11.4 and L 9.6 R knee ext 13.3 and L 14.4 R knee flex 8,8 and L 9#) Goal Time Frame: 6-8 Weeks Goal 5:: Be able to walk back to the treatment room without veering Goal Time Frame: 6-8 Weeks Rehabilitation Potential Rehabilitation Potential: Good Anticipated Interventions Patient/Client Instruction: Educate patient on: Condition and Plan of Care For the Purpose of:: To decrease pain, To improve nutrient delivery to tissue, To improve muscle performance and motor function, To improve ability to perform ADL's, To increase tolerance to activity/condition/position, To improve performance and independence with ADL's, To decrease level of supervision to perform tasks, To improve ability of physical actions for home/community/work/leisure, To improve gait and locomotor functions, To improve health of tissue, To decrease soft tissue restriction, To increase flexibility/ROM, To improve endurance, To improve balance and To improve safety with gait Therapeutic Exercise to Include: Strength training, Endurance training, Balance training, Coordination, Body mechanics, Postural training, Flexibilty training, Gait and locomotor training, Neuromotor development, Active ROM and Dynamic Lumbar Stabilization For the Purpose of:: To decrease pain, To increase ROM, To improve nutrient delivery to tissue, To increase oxygenation perfusion, To improve muscle performance and motor function, To improve ability to perform ADL's, To increase tolerance to activity/condition/position, To improve performance and independence with ADL's, To decrease level of supervision to perform tasks, To improve ability of physical actions for home/community/work/leisure, To improve gait and locomotor functions, To improve health of tissue, To decrease soft tissue restriction, To increase flexibility/ROM, To improve endurance, To improve balance and To improve safety with gait Functional Training to Include: Gait training For the Purpose of:: To improve gait and locomotor functions and To improve safety with gait Text: Thank you for the opportunity to evaluate your patient. For Medicare and Medicare HMO plans, please review the plan of care and approve it. It will need to be FAXED BACK to us at [phone] for Medicare purposes. For Medicare only, by signing this I certify the plan of care. Please let me know if there are questions or concerns regarding this plan of care. Physician Signature: Date:
--- NOTE | 2023-02-17 14:05 | HP.PTREVAL ---
Re-Evaluation Intro: Dr. Walter Emanuel MD, It has been my pleasure to treat OSMIN DAN over the last 9 visits for multiple falls. Please see the progress note below for an update on the physical therapy plan of care! Subjective Subjective: She has had no falls. She feels better. She feels like her balance is better and more strength in her legs. She feels that she would benefit from another round of therapy. She has been working at home also. Objective Objective/Function: R hip flex 11.4 and L 9.6 R knee ext 13.3 and L 15.9 R knee flex 8.8 and L 9# Gait: walks with slight veering at times CATSIB: 110/120 FGA: 18 Plan Plan Plan: 4 additional visits to increase LE strength and continue to work on balance. 2X/ week for 8 weeks for LE strength, functional balance with and without head turns and compliant/non compliant surfaces, gait training, stretching of gastroc with heel and toe raises with HEP. Balance/Gait/Functional tests Balance/Special Test Scores Functional Gait Assessment Score: 18 % Disability: 40.0000 CATSIB Score (Max score 120 seconds): 110 Lower Extremity Functional Score: 53 Goals Goals Goal 1:: I HEP Goal Time Frame: 6-8 Weeks Goal Progress: Goal Met Goal 2:: Increase balance (FGA score at eval 10) Goal Time Frame: 6-8 Weeks Goal Progress: Progressing Goal 3:: Increase CATSIB score (score was 80 at eval). Goal Time Frame: 6-8 Weeks Goal Progress: Progressing Goal 4:: Increase LE strength (MMT at eval: R hip flex 11.4 and L 9.6 R knee ext 13.3 and L 14.4 R knee flex 8,8 and L 9#) Goal Time Frame: 6-8 Weeks Goal Progress: Progressing Goal 5:: Be able to walk back to the treatment room without veering Goal Time Frame: 6-8 Weeks Goal Progress: Progressing Anticipated Interventions Anticipated Interventions Patient/Client Instruction: Educate patient on: Condition and Plan of Care For the Purpose of:: To decrease pain, To improve nutrient delivery to tissue, To improve muscle performance and motor function, To improve ability to perform ADL's, To increase tolerance to activity/condition/position, To improve performance and independence with ADL's, To decrease level of supervision to perform tasks, To improve ability of physical actions for home/community/work/leisure, To improve gait and locomotor functions, To improve health of tissue, To decrease soft tissue restriction, To increase flexibility/ROM, To improve endurance, To improve balance and To improve safety with gait Therapeutic Exercise to Include: Strength training, Endurance training, Balance training, Coordination, Body mechanics, Postural training, Flexibilty training, Gait and locomotor training, Neuromotor development, Active ROM and Dynamic Lumbar Stabilization For the Purpose of:: To decrease pain, To increase ROM, To improve nutrient delivery to tissue, To increase oxygenation perfusion, To improve muscle performance and motor function, To improve ability to perform ADL's, To increase tolerance to activity/condition/position, To improve performance and independence with ADL's, To decrease level of supervision to perform tasks, To improve ability of physical actions for home/community/work/leisure, To improve gait and locomotor functions, To improve health of tissue, To decrease soft tissue restriction, To increase flexibility/ROM, To improve endurance, To improve balance and To improve safety with gait Functional Training to Include: Gait training For the Purpose of:: To improve gait and locomotor functions and To improve safety with gait Re-Evaluation Ending Re-evaluation ending: Please do not hesitate to contact me at [phone] by phone or if you have questions or concerns regarding this new plan of care! Sincerely, Hazel Gonzalez, MPT
--- NOTE | 2023-05-10 15:27 | HP.PT.NRP ---
Patient Information Patient Information: OSMIN DAN was seen in my office for initial evaluation on 01/20/23. The following Plan of Care was established for this patient: POC Established Initial Frequency: 2x /Week Initial Duration: 3 Months Anticipated Interventions Patient/Client Instruction: Educate patient on: Condition and Plan of Care For the Purpose of:: To decrease pain, To improve nutrient delivery to tissue, To improve muscle performance and motor function, To improve ability to perform ADL's, To increase tolerance to activity/condition/position, To improve performance and independence with ADL's, To decrease level of supervision to perform tasks, To improve ability of physical actions for home/community/work/leisure, To improve gait and locomotor functions, To improve health of tissue, To decrease soft tissue restriction, To increase flexibility/ROM, To improve endurance, To improve balance and To improve safety with gait Therapeutic Exercise to Include: Strength training, Endurance training, Balance training, Coordination, Body mechanics, Postural training, Flexibilty training, Gait and locomotor training, Neuromotor development, Active ROM and Dynamic Lumbar Stabilization For the Purpose of:: To decrease pain, To increase ROM, To improve nutrient delivery to tissue, To increase oxygenation perfusion, To improve muscle performance and motor function, To improve ability to perform ADL's, To increase tolerance to activity/condition/position, To improve performance and independence with ADL's, To decrease level of supervision to perform tasks, To improve ability of physical actions for home/community/work/leisure, To improve gait and locomotor functions, To improve health of tissue, To decrease soft tissue restriction, To increase flexibility/ROM, To improve endurance, To improve balance and To improve safety with gait Functional Training to Include: Gait training For the Purpose of:: To improve gait and locomotor functions and To improve safety with gait Last Seen Last Seen: This patient was last seen in our office 02/24/23. Pertinent comments regarding their Physical therapy will appear below: DC PT At this point I will be discontinuing this patient from physical therapy. I would be happy to see this patient again in the future if found appropriate by the physician. Thank you! Hazel Gonzalez, MPT Balance/Gait/Functional tests Balance/Special Test Scores Functional Gait Assessment Score: 18 % Disability: 40.0000 CATSIB Score (Max score 120 seconds): 110 Lower Extremity Functional Score: 53
== END 2023-02-24 19:00 | disposition home or self-care (01) ==
LOC: PT 13:30
PROVIDERS: PCP Family Medicine Geriatric Medicine; Referring Provider Family Medicine Geriatric Medicine; Visit Provider Family Medicine Geriatric Medicine
DX: R29.6 Repeated falls (principal)
CPT/HCPCS: 97110; 97162; 97530

== ENCOUNTER → 2023-02-26 | Outpatient (CLI) | payer MEDICARE, SELFPAY ==
[2023-02-26 11:53] LABS: Absolute Lymphocyte Count 0.81 X10^3/uL (0.83-4.51); Basophil# 0.03 X10^3/uL; Basophil% 0.2 % (0-1); Eosinophil# 0.27 X10^3/uL; Eosinophils% 2.1 % (0-5); Hematocrit 38.3 % (37-47); Lymphocyte # 0.81 X10^3/ul (0.83-4.51); Lymphocyte % 6.4 % (19-41); Mean Corp Hgb Conc 31.3 g/dL (32-36); Mean Corpuscular Hgb 29.9 pg (27.0-32.0); Mean Corpuscular Volume 95.5 fL (81-99); Mean Platelet Vol. 9.2 fl (6.2-12.0); Monocyte# 1.14 X10^3/uL; NRBC Flagged by Analyzer 0 % (0-5); Neutrophil # 10.01 X10^3/uL (2.7-7.7); Neutrophil % 79.2 % (47-70); POSITIVE MORPHOLOGY YES; Platelet Count 178 K/mm3 (150-450); RBC Distribution Width CV 18.9 % (11.6-14.6); RBC Distribution Width SD 66.6 fl (35.1-43.9); Red Blood Count 4.01 M/mm3 (4.2-5.4); White Blood Count 12.7 K/mm3 (4.4-11.0)
[2023-02-26 12:00] LABS: Differential Indicated SCAN CRITERIA MET
[2023-02-26 12:06] LABS: Albumin, Serum 2.9 g/dL (3.2-5.0); BUN 14 mg/dL (7-18); Calcium,Total 8.9 mg/dL (8.5-10.1); Chloride 99 mmol/L (98-107); Creatinine, Serum 0.82 mg/dL (0.55-1.02); EST Glomerular Filtration Rate 72 mL/min (>60); Est Glom Filt Rate - Afr Amer 87 mL/min (>60); Glucose 76 mg/dL (74-106); Magnesium 1.9 mg/dL (1.6-2.6); Phosphorus 2.5 mg/dL (2.5-4.9); Potassium 4.3 mmol/L (3.5-5.1); Sodium Level 133 mmol/L (136-145)
[2023-02-26 12:31] LABS: Anisocytosis 1+
== END | disposition home or self-care (01) ==
LOC: POLAB3 11:27
PROVIDERS: PCP Family Medicine Geriatric Medicine; Visit Provider Family Medicine Geriatric Medicine
DX: I10 Essential (primary) hypertension (principal); N39.0 Urinary tract infection, site not specified
CPT/HCPCS: 36415; 80069; 83735; 85025; 87086; 87088; 87186

== ENCOUNTER 2023-04-07 08:42 | Outpatient (RCR) | payer MEDICARE, SELFPAY ==
[2023-03-25 12:27] LABS: International Normalized Ratio 1.1
[2023-04-07 09:40] LABS: International Normalized Ratio 2.4; Prothrombin Time (Protime)PT. 26.4 SECONDS (11.7-14.9)
== END 2023-04-07 18:00 | disposition home or self-care (01) ==
LOC: LAB 08:42
PROVIDERS: PCP Family Medicine Geriatric Medicine; Referring Provider Nurse Practitioner Gerontology; Visit Provider Nurse Practitioner Gerontology
DX: Z79.01 Long term (current) use of anticoagulants (principal); I48.91 Unspecified atrial fibrillation
CPT/HCPCS: 36415; 85610

== ENCOUNTER 2023-04-15 15:11 | Outpatient (RCR) | payer MEDICARE, SELFPAY | END 2023-05-13 18:00 | disposition home or self-care (01) | LOC: LAB 15:11 | PROVIDERS: PCP Family Medicine Geriatric Medicine; Referring Provider Nurse Practitioner Gerontology; Visit Provider Nurse Practitioner Gerontology | DX: I48.91 Unspecified atrial fibrillation (principal); Z79.01 Long term (current) use of anticoagulants ==

== ENCOUNTER → 2023-04-15 | Outpatient (CLI) | payer MEDICARE, SELFPAY ==
[2023-04-15 16:13] LABS: Absolute Lymphocyte Count 1.67 X10^3/uL (0.83-4.51); Basophil# 0.09 X10^3/uL; Basophil% 0.9 % (0-1); Eosinophil# 0.12 X10^3/uL; Eosinophils% 1.2 % (0-5); Hematocrit 43.4 % (37-47); Hemoglobin 13.3 g/dL (12.0-15.0); Lymphocyte # 1.67 X10^3/ul (0.83-4.51); Lymphocyte % 16.2 % (19-41); Mean Corp Hgb Conc 30.6 g/dL (32-36); Mean Corpuscular Hgb 28.6 pg (27.0-32.0); Mean Corpuscular Volume 93.3 fL (81-99); Mean Platelet Vol. 9.1 fl (6.2-12.0); Monocyte% 11.7 % (0-10); NRBC Flagged by Analyzer 0 % (0-5); Neutrophil # 6.95 X10^3/uL (2.7-7.7); Neutrophil % 67.4 % (47-70); Platelet Count 334 K/mm3 (150-450); RBC Distribution Width CV 16.8 % (11.6-14.6); RBC Distribution Width SD 57.6 fl (35.1-43.9); Red Blood Count 4.65 M/mm3 (4.2-5.4); White Blood Count 10.3 K/mm3 (4.4-11.0)
[2023-04-15 16:37] LABS: International Normalized Ratio 1.6; Prothrombin Time (Protime)PT. 18.8 SECONDS (11.7-14.9)
[2023-04-15 16:49] LABS: Vitamin D,25 Hydroxy 23.3 ng/mL
[2023-04-15 17:07] LABS: ALB/GLOB Ratio 0.9 RATIO (0.9-2.4); AST(SGOT) 18 U/L (15-37); Alanine Aminotransfer ALT/SGPT 24 U/L (13-56); Albumin, Serum 3.6 g/dL (3.2-5.0); Alkaline Phosphatase 96 U/L (45-117); Anion Gap 5 (5-15); BUN 13 mg/dL (7-18); BUN/Creat Ratio 15.9 RATIO (10-20); Calcium,Total 9.9 mg/dL (8.5-10.1); Chloride 102 mmol/L (98-107); Cholesterol 329 mg/dL (200); Creatinine, Serum 0.82 mg/dL (0.55-1.02); EST Glomerular Filtration Rate 73 mL/min (>60); Est Glom Filt Rate - Afr Amer 88 mL/min (>60); Globulin 4.1 g/dL (2.2-4.2); Glucose 99 mg/dL (74-106); High Density Lipoprotein 51 mg/dL; Potassium 4.1 mmol/L (3.5-5.1); Protein, Total 7.7 g/dL (6.4-8.2); Sodium Level 136 mmol/L (136-145); Triglycerides 297 mg/dL; Uric Acid 4.2 mg/dL (2.6-6.0); Very Low Density Lipoprotein 59 mg/dL (5-40)
--- OUTSIDE RECORDS SUMMARY | 2023-04-15 19:25 | XMS RPT_ITS | CCD ---
Author Name Unknown Address [id number] [place] [address] Organization [facility] Care Team Providers Care Clinical Dietetic Technician Name Role Phone ADELFO, WALTER-CHI Unavailable Unavailable ADELFO, WALTER-CHI Unavailable Unavailable ADELFO, WALTER-CHI Unavailable Unavailable ADELFO, WALTER-CHI Unavailable Unavailable Adelfo, Walter Chi Primary Care Provider ADELFO, WALTER CHI Primary Care Unavailable ROXANNE FOOTE Referring Unavailab le ROXANNE FOOTE Attending Unavailab le ADELFO, WALTER CHI Primary Care Unavailable Ck Perez Unavailable Danita Millan RN Unavailable Unavailable Adelfoleah DONIS, Walter-Chi Primary Care Provider Bertin Valentin MD S Unavailable Ck Perez Unavailable Danita Millan RN Unavailable Unavailable Adelfo , Walter-Chi Primary Care Provider Bertin Valentin MD S Unavailable ADELFO, WALTER-CHI Primary Care Unavailable YAZ ANDERSON Referring Unavailable ADELFO, WALTER-CHI Primary Care Unavailable ADELFO, WALTER-CHI Primary Care Unavailable ADELFO, WALTER-CHI Primary Care Unavailable PAYTON ELDER Attending Unavailable SEIM, ETIENNE B Referring Unavailable INDRA DUTTON Attending Unavailable YAZ ANDERSON Referring Unavailable ADELFO, WALTER-CHI Primary Care Unavailable SEIM, ETIENNE B Attending Unavailable SEIM, ETIENNE B Referring Unavailable ADELFO, WALTER-CHI Primary Care Unavailable SEIM, ETIENNE B Attending Unavailable CK MCCORMICK Referring Unavailable CONSULT, PULMONOLOGY Consulting Unavailable SEIM, ETIENNE B Admitting Unavailable ADELFO, WALTER-CHI Primary Care Unavailable ADELFO, WALTER-CHI Primary Care Unavailable YAZ ANDERSON Referring Unavailable ADELFO, WALTER-CHI Primary Care Unavailable YAZ ANDERSON Attending Unavailable YAZ ANDERSON Referring Unavailable ADELFO, WALTER-CHI Primary Care Unavailable MILO PONCE Referring Unavailable MILO PONCE Attending Unavailable ADELFO, WALTER-CHI Primary Care Unavailable MILO PONCE Attending Unavailable YAZ ANDERSON Referring Unavailable SEIM, ETIENNE B Attending Unavailable ADELFO, WALTER-CHI Primary Care Unavailable YAZ ANDERSON Referring Unavailable ADELFO, WALTER-CHI Primary Care Unavailable SEIM, ETIENNE B Referring Unavailable SEIM, ETIENNE B Attending Unavailable ADELFO, WALTER-CHI Primary Care Unavailable SELF, SELF Referring Unavailable DANITA STRONG Attending Unavailable ADELFO, WALTER-CHI Primary Care Unavailable PRAHCK Referring Unavailable SEIM, ETIENNE B Attending Unavailable SEIM, ETIENNE B Attending Unavailable YAZ ANDERSON Referring Unavailable ADELFO, WALTER-CHI Primary Care Unavailable SEIM, ETIENNE B Attending Unavailable ADELFO, WALTER-CHI Primary Care Unavailable YAZ ANDERSON Referring Unavailable ADELFO, WALTER-CHI Primary Care Unavailable ADELFO, WALTER-CHI Primary Care Unavailable CK MCCORMICK Referring Unavailable SEIM, ETIENNE B Attending Unavailable LIEBRTY ESCALERA Referring Unavailable ADELFO, WALTER-CHI Primary Care Unavailable KIARA CAUSEY Attending Unavailable Medications Current Medications Medication Drug Class(es) Dates Sig (Normalized) Sig (Original) acetaminophen 325 mg oral tablet (6 sources) Start: 08-13-2022 take 2 tablets by mouth every six hours as needed Acetaminophen 325 MG tablet Take 2 tablets by mouth every 6 hours as needed. 0 08/13/2022 Active Completed/Discontinued Medications Medication Drug Class(es) Dates Sig (Normalized) Sig (Original) albuterol 0.833 mg/ml / ipratropium bromide 0.167 mg/ml inhalation solution (1 source) Anticholinergic, beta2-Adrenergic Agonist Start: 08-12-2022 End: 08-12-2022 Ipratropium-albuter ol (DUONEB) 0.5-2.5 (3) MG/3ML nebulizer solution 3 mL calcium chloride 0.0014 meq/ml / potassium chloride 0.004 meq/ml / sodium chloride 0.103 meq/ml / sodium lactate 0.028 meq/ml injectable solution (2 sources) Start: 08-12-2022 End: 08-13-2022 Lactated ringers IV solution chlorhexidine gluconate 1.2 mg/ml mouthwash (4 sources) Start: 08-13-2022 End: 09-08-2022 take 15 mL by mouth twice daily chlorhexidine (Peridex) 0.12 % Solution oral solution Swish and spit 15 mL 2 times daily for 14 days. 420 mL 0 08/13/2022 09/08/2022 Discontinued Problems Active Problems Problem Classification Problem Date Documented Da te Episodic/Chronic Cancer of breast (3 sources) Intraductal carcinoma in situ of left breast; Translations: [Intraductal carcinoma in situ of left breast] Onset: 05-04-2022 Chronic Cancer of bronchus; lung (3 sources) Non-small cell lung cancer; Translations: [Malignant neoplasm of unspecified part of left bronchus or lung] Onset: 09-01-2022 09-01-2022 Chronic Cancer of head and neck (16 sources) Squamous cell carcinoma of floor of mouth; Translations: [Malignant neoplasm of floor of mouth, unspecified] Onset: 08-12-2022 Chronic Disorders of lipid metabolism (2 sources) Hyperlipidemia, unspecified; Translations: [Hyperlipidemia, unspecified] Onset: 08-04-2022 Chronic Essential hypertension (2 sources) Essential (primary) hypertension; Translations: [Essential (primary) hypertension] Onset: 08-04-2022 Chronic Immunity disorders (5 sources) Immunosuppression; Translations: [Immunodeficiency, unspecified] Onset: 08-05-2022 08-05-2022 Chronic Other lower respiratory disease (2 sources) Lung mass; Translations: [Other nonspecific abnormal finding of lung field] 09-03-2022 Episodic Residual codes; unclassified (2 sources) Estrogen receptor positive tumor; Translations: [Estrogen receptor positive status [ER+]] Onset: 05-04-2022 Episodic Residual codes; unclassified (1 source) Estrogen receptor positive status [ER+]; Translations: [Estrogen receptor positive status (ER+)] Onset: 05-04-2022 Episodic Rheumatoid arthritis and related disease (2 sources) Rheumatoid arthritis, unspecified; Translations: [Rheumatoid arthritis, unspecified] Onset: 08-04-2022 Chronic Unclassified (1 source) SCREENING Onset: 04-30-2022 Unclassified (2 sources) Post Op Visit; Translations: [Post Op Visit] Onset: 08-20-2022 Past or Other Problems Problem Classification Problem Date Documented Date Episodic/Chronic Cancer of breast (5 sources) History of malignant neoplasm of breast; Translations: [Personal history of malignant neoplasm of breast] Onset: 05-04-2022 Episodic Mood disorders (5 sources) Mood disorders Onset: 07-21-2022 Resolved: 12-18-2022 07-21-2022 Other connective tissue disease (2 sources) Personal history of other diseases of the musculoskeletal system and connective tissue; Translations: [Personal history of other diseases of the musculoskeletal system and connective tissue] Onset: 08-04-2022 Episodic Other lower respiratory disease (2 sources) Other nonspecific abnormal finding of lung field; Translations: [Other nonspecific abnormal finding of lung field] Onset: 09-14-2022 Episodic Residual codes; unclassified (5 sources) History of repair of aneurysm of abdominal aorta; Translations: [Other specified postprocedural states] Onset: 08-05-2022 08-05-2022 Episodic Residual codes; unclassified (2 sources) Other specified health status; Translations: [Other specified health status] Onset: 08-07-2022 Episodic Residual codes; unclassified (2 sources) Other specified postprocedural states; Translations: [Other specified postprocedural states] Onset: 08-04-2022 Episodic Unclassified (1 source) Onset: 12-18-2022 12-18-2022 Urinary tract infections (2 sources) Urinary tract infection, site not specified; Translations: [Urinary tract infection, site not specified] Onset: 11-03-2016 Episodic Results Test Name Value Interpretation Reference Range Facil ity Vital Signs Date Time Vital Sign Value Performing Clinician Facility 12-18-2022 08:59-0400 Body mass index (BMI) [Ratio] 23.95 kg/m2 Etienne Mejía MD Work Phone: [facility] 12-18-2022 08:59-0400 Body temperature 97.11 [degF] Etienne Mejía MD Work Phone: [facility] 12-18-2022 08:59-0400 Body weight 61.33 kg Etienne Mejía MD Work Phone: [facility] 12-18-2022 08:59-0400 Diastolic blood pressure 55 mm[Hg] Etienne Mejía MD Work Phone: [facility] 12-18-2022 08:59-0400 Heart rate 105 /min Etienne Mejía MD Work Phone: [facility] 12-18-2022 08:59-0400 Respiratory rate 22 /min Etienne Mejía MD Work Phone: [facility] 12-18-2022 08:59-0400 SaO2% (BldA) [Mass fraction] 94 % Etienne Mejía MD Work Phone: [facility] 12-18-2022 08:59-0400 Systolic blood pressure 115 mm[Hg] Etienne Mejía MD Work Phone: 3(345)[phone] [place] [address] 09-01-2022 14:29-0400 Body mass index (BMI) [Ratio] 25.54 kg/m2 Etienne Mejía MD Work Phone: [facility] 09-01-2022 14:29-0400 Body temperature 97.81 [degF] Etienne Mejía MD Work Phone: [facility] 09-01-2022 14:29-0400 Body weight 65.41 kg Etienne Mejía MD Work Phone: [facility] 09-01-2022 14:29-0400 Diastolic blood pressure 67 mm[Hg] Etienne Mejía MD Work Phone: [facility] 09-01-2022 14:29-0400 Heart rate 82 /min Etienne Mejía MD Work Phone: 3(722)[phone] [place] [address] 09-01-2022 14:29-0400 Respiratory rate 16 /min Etienne Mejía MD Work Phone: 5(081)[phone] [place] [address] 09-01-2022 14:29-0400 SaO2% (BldA) [Mass fraction] 96 % Etienne Mejía MD Work Phone: [facility] 09-01-2022 14:29-0400 Systolic blood pressure 155 mm[Hg] Etienne Mejía MD Work Phone: [facility] 09-01-2022 08:52-0400 Body height 160 cm Milo Ponce MD Work Phone: [facility] 09-01-2022 08:52-0400 Body mass index (BMI) [Ratio] 25.37 kg/m2 Milo Ponce MD Work Phone: [facility] 09-01-2022 08:52-0400 Body temperature 97.39 [degF] Milo Ponce MD Work Phone: [facility] 09-01-2022 08:52-0400 Body weight 64.95 kg Milo Ponce MD Work Phone: [facility] 09-01-2022 08:52-0400 Diastolic blood pressure 56 mm[Hg] Milo Ponce MD Work Phone: [facility] 09-01-2022 08:52-0400 Heart rate 82 /min Milo Ponce MD Work Phone: [facility] 09-01-2022 08:52-0400 Respiratory rate 16 /min Milo Ponce MD Work Phone: [facility] 09-01-2022 08:52-0400 SaO2% (BldA) [Mass fraction] 94 % Milo Ponce MD Work Phone: [facility] 09-01-2022 08:52-0400 Systolic blood pressure 111 mm[Hg] Milo Ponce MD Work Phone: [facility] 08-13-2022 11:33-0400 Body temperature 97.59 [degF] Etienne Mejía MD Work Phone: [facility] 08-13-2022 11:33-0400 Diastolic blood pressure 65 mm[Hg] Etienne Mejía MD Work Phone: [facility] 08-13-2022 11:33-0400 Heart rate 77 /min Etienne Mejía MD Work Phone: [facility] 08-13-2022 11:33-0400 Respiratory rate 18 /min Etienne Mejía MD Work Phone: [facility] 08-13-2022 11:33-0400 SaO2% (BldA) [Mass fraction] 95 % Etienne Mejía MD Work Phone: [facility] 08-13-2022 11:33-0400 Systolic blood pressure 122 mm[Hg] Etienne Mejía MD Work Phone: [facility] 08-12-2022 07:20-0400 Body height 160 cm Etienne Mejía MD Work Phone: [facility] 08-12-2022 07:20-0400 Body mass index (BMI) [Ratio] 26.04 kg/m2 Etienne Mejía MD Work Phone: [facility] 08-12-2022 07:20-0400 Body weight 66.68 kg Etienne Mejía MD Work Phone: [facility] 05-07-2022 14:44-0500 Body weight 72.53 kg Roxanne Foote MD Work Phone: [facility] 05-07-2022 14:44-0500 Diastolic blood pressure 66 mm[Hg] Roxanne Foote MD Work Phone: [facility] 05-07-2022 14:44-0500 Heart rate 83 /min Roxanne Foote MD Work Phone: [facility] 05-07-2022 14:44-0500 Respiratory rate 14 /min Roxanne Foote MD Work Phone: [facility] 05-07-2022 14:44-0500 Systolic blood pressure 137 mm[Hg] Roxanne Foote MD Work Phone: [facility] Encounters Encounter Date Encounter Type Care Provider Facility Start: 12-18-2022 ambulatory WALTER-CHI ADELFO Facility:[facility] Start: 12-18-2022 End: 12-18-2022 Office outpatient visit 15 minutes Etienne Mejía MD Work Phone: Department of Otolaryngology Procedures Date Procedure Procedure Detail Performing Clinician Start: 12-18-2022 Follow-up visit Follow-up ETIENNE MEJÍA Start: 09-14-[address] atten uation skull base mid-thigh Yaz Anderson PAC Work Phone: Start: 09-14-2022 Glucose measurement, blood Yaz Anderson PAC Work Phone: Start: 08-13-2022 Creatinine blood Joo Matias MD Work Phone: Start: 08-12-2022 End: 08-12-2022 Esophagoscopy flexible transoral diagnostic Etienne Mejía MD Work Phone: Start: 08-12-2022 End: 08-12-2022 Excision lesion floor mouth Etienne Mejía MD Work Phone: Start: 08-12-2022 End: 08-12-2022 Laryngoscopy w/wo tracheoscopy dx except Etienne Mejía MD Work Phone: Start: 08-12-2022 End: 08-12-2022 Split agrft f/s/n/h/f/g/m/d gt 1st 100 cm/1 % Etienne Mejía MD Work Phone: Start: 08-12-2022 ABORH TYPE RECONFIRMATION Mando Hewitt MD Work Phone: Start: 08-12-2022 CBC AND ELECTRONIC DIFF Joo Matias MD Work Phone: Start: 08-12-2022 Complete blood count with white cell differential, automated Joo Matias MD Work Phone: Start: 08-12-2022 Creatinine blood Joo Matias MD Work Phone: Start: 08-12-2022 End: 08-12-2022 CONTINUOUS CARDIAC MONITORING STRIP Other Other Start: 08-04-2022 Antibody screen WALTER-VINCE AKERS Plan of Treatment Date Care Activity Detail Author Start: 11-19-2032 Tetanus vaccination TETANUS [facility] Start: 08-29-2023 DIABETES SCREEN DIABETES SCREEN [facility] Start: 08-05-2023 Screening for malign ant neoplasm of lung LUNG CANCER SCREENING [facility] Start: 05-01-2023 End: 06-03-2023 SERA SCREENING SERA SCREENING Radiology Routine 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 Work Phone: Immunizations Immunization Date Immunization Notes Care Provider [facility] 01-01-2021 influenza virus vaccine, unspecified formulation Etienne Mejía MD Work Phone: [facility] 12-16-2015 zoster vaccine, unspecified formulation Etienne Mejía MD Work Phone: [facility] Payers Date Payer Category Payer Self-pay 2016 Medicare [id number] 2016 Medicare [id number] 1950 Unknown [id number] 2.. [id number] 1950 Unknown [id number] 2. [id number] 1949 Unknown [id number] 2. [id number] 1949 Unknown [id number] 2.16. [id number] 1949 Unknown [id number] 2.16. [id number] 1949 Unknown [id number] 2.16. [id number] 1949 Unknown [id number] 2.16. [id number] 1949 Unknown [id number] 2.16. [id number] 1949 Unknown [id number] 2.16. [id number] 1949 Unknown [id number] 2.16. 840.1.278003.3.579.2.594 1949 Unknown [id number] 2.16. [id number] 1949 Unknown [id number] 2.16. 840.1.911395.3.579.2.594 1949 Unknown [id number] 2.16. 840.1.954997.3.579.2.594 1949 Unknown [id number] 2.16. 840.1.926682.3.579.2.594 1949 Unknown [id number] 2.16. 840.1.656645.3.579.2.594 1949 Unknown [id number] 2.16. 840.1.124527.3.579.2.594 1949 Unknown [id number] 2.16. 840.1.454018.3.579.2.594 1949 Unknown [id number] 2.16. 840.1.374298.3.579.2.594 1949 Unknown [id number] 2.16. [id number] 1949 Unknown [id number] 2.16. [id number] 1949 Unknown [id number] 2.16. [id number] Social History Date Type Detail [facility] Start: 1950 Sex Assigned At Not on file C [facility] Start: 05-07-2022 [facility] Work Phone: Start: 03-15-1970 End: 03-15-2012 History of tobacco use Cigarette Smoker [facility] Work Phone: Start: 05-07-2022 End: 01-15-2023 Alcohol intake Current drinker of alcohol (finding) [facility] Start: 05-07-2022 History SDOH Alcohol Frequency 4 [facility] Start: 05-07-2022 History SDOH Alcohol Std Drinks 1 [facility] Start: 05-07-2022 History SDOH Social Connections Phone 5 [facility] Start: 05-07-2022 History SDOH Social Connections Get Together 2 [facility] Start: 05-07-2022 History SDOH Social Connections Anabaptist 3 [facility] Start: 05-07-2022 End: 07-21-2022 Alcohol Comment Social use [facility] Start: 07-21-2022 End: 08-20-2022 Tobacco smoking status NHIS Ex-smoker [facility] Start: 03-15-1970 End: 03-15-2012 History of tobacco use Current smoker [facility] Start: 07-21-2022 End: 12-18-2022 Cigarettes smoked current (pack per day) - Reported 0.5 [facility] Start: 07-21-2022 End: 08-20-2022 Tobacco use and exposure Smokeless tobacco non-user [facility] Start: 08-02-2022 End: 08-12-2022 Exposure to SARS-CoV-2 (event) Not sure [facility] Start: 09-01-2022 End: 12-18-2022 Tobacco use panel [facility] How hard is it for y ou to pay for the very basics like food, housing, medical care, and heating Not hard at all [facility] (I/We) worried wheth er (my/our) food would run out before (I/we) got money to buy more. 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 Patient is S/P excision lesion FOM, bilateral sialodochoplasty, and FTSG reconstruction carried out on 08/12/22 (path: pT1, 1 mm deep, margins negative). Patient was noted to have a large left lung mass on pre-surgical imaging, biopsy confirmed SCCa - second primary. She completed pulmonary [employer] treatment locally in [place] completed October 2022. Patient presents today for surveillance visit. She just finished [employer] locally for lung cancer. She reports that re-staging scans showed persistent disease and they are planning to start immunotherapy. She denies new head and neck symptoms. She had a canker sore in her mouth a few weeks ago that has since resolved. Nursing documentation reviewed. Past Medical History: Diagnosis Date Ductal carcinoma in situ (DCIS) of left breast Essential hypertension, benign Estrogen receptor positive status (ER+) Gout Hyperlipidemia Malignant neoplasm of breast Rheumatoid arthritis Past Surgical History: Procedure Laterality Date LARYNGOSCOPY DIRECT DIAGNOSTIC N/A 08/12/2022 Laterality: N/A; Surgeon: Etienne Mejía MD; [facility] ES[facility]OSCOPY DIAGNOSTIC N/A 08/12/2022 Laterality: N/A; Surgeon: Etienne Mejía MD; Location: [facility] OR EXCISION LESION FLOOR OF MOUTH Left 08/12/2022 Laterality: Left; Surgeon: Etienne Mejía MD; Location: [facility] MAIN OR SIALODOCHOPLASTY Bilateral 08/12/2022 Laterality: Bilateral; Surgeon: Etienne Mejía MD; Location: [facility] MAIN OR GRAFT SKIN SPLIT THICKNESS EAR EYELID FACE MOUTH ORBIT (STSG) Bilateral 08/12/2022 Laterality: Bilateral; Surgeon: Etienne Mejía MD; Location: [facility] MAIN OR OTHER SURGICAL 2020 abdominal aortic aneurysm repair MASTECTOMY PARTIAL (LUMPECTOMY) Left OTHER SURGICAL L 2nd toe ambutated, TOTAL ABDOMINAL HYSTERECTOMY Ovaries remain Current Outpatient Medications Medication Sig Dispense Refill Acetaminophen 325 MG tablet Take 2 tablets by mouth every 6 hours as needed. Allopurinol 300 MG tablet Take 1 tablet by mouth daily every morning. AMIOdarone 200 MG tablet TAKE 1 TABLET orally daily for Correction OF dose, only once per day] Atorvastatin 40 MG tablet Take 1 tablet by mouth at bedtime. Eliquis 5 MG tablet Take 1 tablet by mouth 2 times daily. Gabapentin 100 MG capsule Take 1-3 capsules by mouth 2 times daily. Takes 100mg capsule in am and three 100mg capsules in pm Metoprolol succinate 50 MG tablet XL Take 1 tablet by mouth daily every morning. Multiple Vitamins-Minerals (CENTRUM SILVER 50+WOMEN PO) Take 1 tablet by mouth daily every morning. POTASSIUM PO Take 1 tablet by mouth daily every morning. For leg cramps (over the counter) traMADol 50 MG tablet Take 1 tablet by mouth every 6 hours as needed. No current facility-administered medications for this visit. No Known Allergies Exam: Patient with pulse ox of 55% when arriving to clinic, patient not wearing supplemental oxygen O2 sats improved to 94% on 2L NC BP 115/55 (BP Location: Right arm, BP Position: Sitting) Pulse 105 Temp 97.1 F (36.2 C) (Temporal) Resp 22 Wt 61.3 kg (135 lb 3.2 oz) SpO2 94% BMI 23.95 kg/m Smoking Status Former Documented vital signs from today's visit reviewed. Physical exam including head and neck examination of the oral cavity, oropharynx, larynx, and hypopharynx including indirect mirror exam as well as inspection and palpation of the face, parotid and neck is remarkable for findings consistent with postoperative changes and negative for new lesions, masses or lymphadenopathy. Left FOM healing well,no sign of recurrent. Resolving ecchymosis along left cheek, face and forehead. Impression/Plan: Overall I believe patient is doing well and without concern in the head and neck. There is no concern for locoregional recurrent disease of the head and neck today on exam and specifically no palpable LAD. She is continuing to follow up locally with treatment for her lung disease with planned IT in future. She was also instructed that she needs to continue to wear supplemental oxygen as prescribed and will need to see her PCP in follow up for her oxygen saturations. She noted full understanding and had no clinical shortness of breath today increased from baseline. Patient to RTC in 3 months for ongoing surveillance of the head/neck. 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 Patient is S/P excision lesion FOM, bilateral sialodochoplasty, and FTSG reconstruction carried out on 08/12/22 (path: pT1, 1 mm deep, margins negative). Patient was noted to have a large left lung mass on pre-surgical imaging, biopsy confirmed SCCa - second primary. She completed pulmonary [employer] treatment locally in [place] completed October 2022. Patient presents today for surveillance visit. She just finished [employer] locally for lung cancer. She reports that re-staging scans showed persistent disease and they are planning to start immunotherapy. She denies new head and neck symptoms. She had a canker sore in her mouth a few weeks ago that has since resolved. \ Nursing documentation reviewed. Past Medical History: Diagnosis Date Ductal carcinoma in situ (DCIS) of left breast Essential hypertension, benign Estrogen receptor positive status (ER+) Gout Hyperlipidemia Malignant neoplasm of breast Rheumatoid arthritis Past Surgical History: Procedure Laterality Date LARYNGOSCOPY DIRECT DIAGNOSTIC N/A 08/12/2022 Laterality: N/A; Surgeon: Etienne Mejía MD; [facility] ESOPHAGOSCOPY DIAGNOSTIC N/A 08/12/2022 Laterality: N/A; Surgeon: Etienne Mejía MD; Location: [facility] OR EXCISION LESION FLOOR OF MOUTH Left 08/12/2022 Laterality: Left; Surgeon: Etienne Mejía MD; Location: [facility] OR SIALODOCHOPLASTY Bilateral 08/12/2022 Laterality: Bilateral; Surgeon: Etienne Mejía MD; Location: [facility] OR GRAFT SKIN SPLIT THICKNESS EAR EYELID FACE MOUTH ORBIT (STSG) Bilateral 08/12/2022 Laterality: Bilateral; Surgeon: Etienne Mejía MD; Location[facility] OTHER SURGICAL 2020 abdominal aortic aneurysm repair MASTECTOMY PARTIAL (LUMPECTOMY) Left OTHER SURGICAL L 2nd toe ambutated, TOTAL ABDOMINAL HYSTERECTOMY Ovaries remain Current Outpatient Medications Medication Sig Dispense Refill Acetaminophen 325 MG tablet Take 2 tablets by mouth every 6 hours as needed. Allopurinol 300 MG tablet Take 1 tablet by mouth daily every morning. AMIOdarone 200 MG tablet TAKE 1 TABLET orally daily for Correction OF dose, only once per day] Atorvastatin 40 MG tablet Take 1 tablet by mouth at bedtime. Eliquis 5 MG tablet Take 1 tablet by mouth 2 times daily. Gabapentin 100 MG capsule Take 1-3 capsules by mouth 2 times daily. Takes 100mg capsule in am and three 100mg capsules in pm Metoprolol succinate 50 MG tablet XL Take 1 tablet by mouth daily every morning. Multiple Vitamins-Minerals (CENTRUM SILVER 50+WOMEN PO) Take 1 tablet by mouth daily every morning. POTASSIUM PO Take 1 tablet by mouth daily every morning. For leg cramps (over the counter) traMADol 50 MG tablet Take 1 tablet by mouth every 6 hours as needed. No current facility-administered medications for this visit. No Known Allergies Exam: Patient with pulse ox of 55% when arriving to clinic, patient not wearing supplemental oxygen O2 sats improved to 94% on 2L NC BP 115/55 (BP Location: Right arm, BP Position: Sitting) Pulse 105 Temp 97.1 F (36.2 C) (Temporal) Resp 22 Wt 61.3 kg (135 lb 3.2 oz) SpO2 94% BMI 23.95 kg/m Smoking Status Former Documented vital signs from today's visit reviewed. Physical exam including head and neck examination of the oral cavity, oropharynx, larynx, and hypopharynx including indirect mirror exam as well as inspection and palpation of the face, parotid and neck is remarkable for findings consistent with postoperative changes and negative for new lesions, masses or lymphadenopathy. Left FOM healing well,no sign of recurrent. Resolving ecchymosis along left cheek, face and forehead. Impression/Plan: Overall I believe patient is doing well and RADHA on exam today. Follow up locally with treatment for her lung disease. She was also instructed that she needs to continue to wear supplemental oxygen as prescribed and will need to see her PCP in follow up for her oxygen saturations. Patient to RTC in 3 months. Attending Physician Attestation I independently interviewed, examined and formulated the medical decision making. Any procedures were performed by myself. The details of my interview, examination findings, and medical decision-making confirmed the findings below. I have personally amended the clinical encounter documentation where appropriate. I saw this patient with JACINTO Ospina and personally wrote the impression and plan. Etienne Mejía MD Otolaryngology-Head and Neck Surgery documented in this encounter [facility] 12-18-2022 Instructions Mackenzie Gonzalez RN - 12/18/2022 9:45 AM EDT Please contact your Primary Care Physician regarding your oxygen. O2 Level was 55% on room air. O2 Level was 94% on 2L NC. 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 Patient is S/P excision lesion FOM, bilateral sialodochoplasty, and FTSG reconstruction carried out on 08/12/22 (path: pT1, 1 mm deep, margins negative). Patient was noted to have a large left lung mass on pre-surgical imaging, biopsy confirmed SCCa - second primary. She is planned for pulmonary [employer] treatment locally in [place]. History and review of systems is negative for changes since last visit except patient is postop. She is doing well. She is tolerating a normal diet, started wearing her dentures yesterday. Speech normal. No sialoadenitis. Nursing documentation reviewed. Past Medical History: Diagnosis Date Ductal carcinoma in situ (DCIS) of left breast Essential hypertension, benign Estrogen receptor positive status (ER+) Gout Hyperlipidemia Malignant neoplasm of breast Rheumatoid arthritis Past Surgical History: Procedure Laterality Date LARYNGOSCOPY DIRECT DIAGNOSTIC N/A 08/12/2022 Laterality: N/A; Surgeon: Etienne Mejía MD; Location[facility] OR ESOPHAGOSCOPY DIAGNOSTIC N/A 08/12/2022 Laterality: N/A; Surgeon: Etienne Mejía MD; Location: [facility] OR EXCISION LESION FLOOR OF MOUTH Left 08/12/2022 Laterality: Left; Surgeon: Etienne Mejía MD; Location: [facility] OR SIALODOCHOPLASTY Bilateral 08/12/2022 Laterality: Bilateral; Surgeon: Etienne Mejía MD; Location: [facility] OR GRAFT SKIN SPLIT THICKNESS EAR EYELID FACE MOUTH ORBIT (STSG) Bilateral 08/12/2022 Laterality: Bilateral; Surgeon: Etienne Mejía MD; Location: [facility] OR OTHER SURGICAL 2020 abdominal aortic aneurysm repair MASTECTOMY PARTIAL (LUMPECTOMY) Left OTHER SURGICAL L 2nd toe ambutated, TOTAL ABDOMINAL HYSTERECTOMY Ovaries remain Current Outpatient Medications Medication Sig Dispense Refill Acetaminophen 325 MG tablet Take 2 tablets by mouth every 6 hours as needed. Allopurinol 300 MG tablet Take 1 tablet by mouth daily every morning. Atorvastatin 40 MG tablet Take 1 tablet by mouth at bedtime. Folic acid 1 MG tablet Take 2 tablets by mouth daily every morning. Gabapentin 100 MG capsule Take 1-3 capsules by mouth 2 times daily. Takes 100mg capsule in am and three 100mg capsules in pm Hydroxychloroquine 200 MG tablet Take 0.5-1 tablets by mouth 2 times daily. Reports taking one 200mg in am and 0.5 tab in evening leucovorin 15 MG tablet Take 1 tablet by mouth Once a week. Takes on am for follow up of methotrexate losartan 100 MG tablet Take 1 tablet by mouth daily every morning. methotrexate 2.5 MG tablet Take 4 tablets by mouth Once a week. Wednesdays- takes 4 tabs in am and 4 tabs in pm Metoprolol succinate 50 MG tablet XL Take 1 tablet by mouth daily every morning. Multiple Vitamins-Minerals (CENTRUM SILVER 50+WOMEN PO) Take 1 tablet by mouth daily every morning. POTASSIUM PO Take 1 tablet by mouth daily every morning. For leg cramps (over the counter) Senna 8.6 MG tablet Take 1 tablet by mouth daily. traMADol 50 MG tablet Take 1 tablet by mouth every 6 hours as needed. chlorhexidine (Peridex) 0.12 % Solution oral solution Swish and spit 15 mL 2 times daily for 14 days. 420 mL 0 oxyCODONE 5 MG tablet Take 1 tablet by mouth every 6 hours as needed for Moderate Pain for up to 7 days. (Patient not taking: Reported on 08/20/2022) 28 tablet 0 No current facility-administered medications for this visit. No Known Allergies Exam: BP 155/67 (BP Location: Left arm, BP Position: Sitting) Pulse 82 Temp 97.8 F (36.6 C) (Oral) Resp 16 Wt 65.4 kg (144 lb 3.2 oz) SpO2 96% BMI 25.54 kg/m Smoking Status Former Documented vital signs from today's visit reviewed. Physical exam including head and neck examination of the oral cavity, oropharynx, larynx, and hypopharynx including indirect mirror exam as well as inspection and palpation of the face, parotid and neck is remarkable for findings consistent with postoperative changes and negative for new lesions, masses or lymphadenopathy. Left FOM healing well, few residual sutures, FTSG with good take. Incision CDI. No active infection. Airway is adequate. Sialodochoplasty patent with good flow of clear saliva. Data: Oral cavity surgical pathology reviewed, 08/12/22: SYNOPTIC REPORT FOR CANCER OF ORAL CAVITY: Procedure: Left floor of mouth excision Tumor site: Floor of mouth Tumor laterality: Left Tumor focality: Unifocal Tumor size: 0.9 cm WHO Histologic type: Squamous cell carcinoma, conventional Tumor grade: Moderately differentiated Depth of Invasion [DOI]: 0.1 cm Lymphovascular invasion (LVI): Not identified Perineural invasion (PNI): Not identified Tumor extent: Intramucosal lesion: High-grade dysplasia Deep Tissue: Not applicable Margins: Main specimen margins: Negative for carcinoma Additional separately submitted margins (frozen tissue specimens): Negative for carcinoma Additional resection margins (non-frozen tissue): Not applicable Distance of tumor to nearest margin: 0.1 cm, lateral margin Lymph nodes: No nodes submitted or found pTNM classification: pT1 NX The above synoptic report complies, in slightly modified form, with the guidelines of the [employer] [place] [employer] Protocols and the AJCC Cancer Staging Manual, 8th edition, 2017, for the reporting of cancer specimens. Lung Cytology 08/20/22: *CYTOLOGIC DIAGNOSIS* A. 4R LYMPH NODE, FNA (CYTOLOGY AND CELL BLOCK): FINAL DIAGNOSIS: No Malignant Cells Are Identified Lymphoid Population (Cell Block Only) Immediate Study: Adequacy/Preliminary Diagnosis: Not Adequate Ashley Castañeda, CT (ASCP), August 20, 2022 B. STATION 7 LYMPH NODE, FNA (CYTOLOGY AND CELL BLOCK): FINAL DIAGNOSIS: Squamous Cell Carcinoma Note: Tumor cells present on cell block. Immediate Study: Adequacy/Preliminary Diagnosis: Adequate Ashley Castañeda, CT (ASCP), August 20, 2022 C. 4L LYMPH NODE, FNA (CYTOLOGY AND CELL BLOCK): FINAL DIAGNOSIS: Squamous Cell Carcinoma (Cell Block Only) Immediate Study: Adequacy/Preliminary Diagnosis: Not Adequate Ashley Castañeda, CT (ASCP), August 20, 2022 D. LUNG, LEFT LOWER LOBE, FNA (CYTOLOGY AND CELL BLOCK): FINAL DIAGNOSIS: Squamous Cell Carcinoma Note: Tumor cells present on cell block. Impression/Plan: Overall I believe patient is doing well and healing well. At this point I am recommending patient proceed with local [employer] for lung cancer. The patient's case was reviewed at tumor board and all agreed to observe the neck given the new diagnosis of lung cancer. Will plan for close clinical observation with imaging. She has no further restrictions and can resume normal diet. Patient to return to clinic for surveillance follow-up visit in 3 months or sooner if new concerns arise. 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 Patient is S/P excision lesion FOM, bilateral sialodochoplasty, and FTSG reconstruction carried out on 08/12/22 (path: pT1, 1 mm deep, margins negative). Patient was noted to have a large left lung mass on pre-surgical imaging, biopsy confirmed SCCa - second primary. She is planned for pulmonary [employer] treatment locally in [place]. History and review of systems is negative for changes since last visit except patient is postop. She is doing well. She is tolerating a normal diet, started wearing her dentures yesterday. Speech normal. No sialoadenitis. Nursing documentation reviewed. Past Medical History: Diagnosis Date Ductal carcinoma in situ (DCIS) of left breast Essential hypertension, benign Estrogen receptor positive status (ER+) Gout Hyperlipidemia Malignant neoplasm of breast Rheumatoid arthritis Past Surgical History: Procedure Laterality Date LARYNGOSCOPY DIRECT DIAGNOSTIC N/A 08/12/2022 Laterality: N/A; Surgeon: Etienne Mejía MD; Location: [facility] OR ESOPHAGOSCOPY DIAGNOSTIC N/A 08/12/2022 Laterality: N/A; Surgeon: Etienne Mejía MD; Location: [facility] OR EXCISION LESION FLOOR OF MOUTH Left 08/12/2022 Laterality: Left; Surgeon: Etienne Mejía MD; Location: [facility] OR SIALODOCHOPLASTY Bilateral 08/12/2022 Laterality: Bilateral; Surgeon: Etienne Mejía MD; Location: [facility] OR GRAFT SKIN SPLIT THICKNESS EAR EYELID FACE MOUTH ORBIT (STSG) Bilateral 08/12/2022 Laterality: Bilateral; Surgeon: Etienne Mejía MD; Location: [facility] OR OTHER SURGICAL 2020 abdominal aortic aneurysm repair MASTECTOMY PARTIAL (LUMPECTOMY) Left OTHER SURGICAL L 2nd toe ambutated, TOTAL ABDOMINAL HYSTERECTOMY Ovaries remain Current Outpatient Medications Medication Sig Dispense Refill Acetaminophen 325 MG tablet Take 2 tablets by mouth every 6 hours as needed. Allopurinol 300 MG tablet Take 1 tablet by mouth daily every morning. Atorvastatin 40 MG tablet Take 1 tablet by mouth at bedtime. Folic acid 1 MG tablet Take 2 tablets by mouth daily every morning. Gabapentin 100 MG capsule Take 1-3 capsules by mouth 2 times daily. Takes 100mg capsule in am and three 100mg capsules in pm Hydroxychloroquine 200 MG tablet Take 0.5-1 tablets by mouth 2 times daily. Reports taking one 200mg in am and 0.5 tab in evening leucovorin 15 MG tablet Take 1 tablet by mouth Once a week. Takes on am for follow up of methotrexate losartan 100 MG tablet Take 1 tablet by mouth daily every morning. methotrexate 2.5 MG tablet Take 4 tablets by mouth Once a week. Wednesdays- takes 4 tabs in am and 4 tabs in pm Metoprolol succinate 50 MG tablet XL Take 1 tablet by mouth daily every morning. Multiple Vitamins-Minerals (CENTRUM SILVER 50+WOMEN PO) Take 1 tablet by mouth daily every morning. POTASSIUM PO Take 1 tablet by mouth daily every morning. For leg cramps (over the counter) Senna 8.6 MG tablet Take 1 tablet by mouth daily. traMADol 50 MG tablet Take 1 tablet by mouth every 6 hours as needed. chlorhexidine (Peridex) 0.12 % Solution oral solution Swish and spit 15 mL 2 times daily for 14 days. 420 mL 0 oxyCODONE 5 MG tablet Take 1 tablet by mouth every 6 hours as needed for Moderate Pain for up to 7 days. (Patient not taking: Reported on 08/20/2022) 28 tablet 0 No current facility-administered medications for this visit. No Known Allergies Exam: BP 155/67 (BP Location: Left arm, BP Position: Sitting) Pulse 82 Temp 97.8 F (36.6 C) (Oral) Resp 16 Wt 65.4 kg (144 lb 3.2 oz) SpO2 96% BMI 25.54 kg/m Smoking Status Former Documented vital signs from today's visit reviewed. Physical exam including head and neck examination of the oral cavity, oropharynx, larynx, and hypopharynx including indirect mirror exam as well as inspection and palpation of the face, parotid and neck is remarkable for findings consistent with postoperative changes and negative for new lesions, masses or lymphadenopathy. Left FOM healing well, few residual sutures, FTSG with good take. Incision CDI. No active infection. Airway is adequate. Sialodochoplasty patent with good flow of clear saliva. Data: Oral cavity surgical pathology reviewed, 08/12/22: SYNOPTIC REPORT FOR CANCER OF ORAL CAVITY: Procedure: Left floor of mouth excision Tumor site: Floor of mouth Tumor laterality: Left Tumor focality: Unifocal Tumor size: 0.9 cm WHO Histologic type: Squamous cell carcinoma, conventional Tumor grade: Moderately differentiated Depth of Invasion [DOI]: 0.1 cm Lymphovascular invasion (LVI): Not identified Perineural invasion (PNI): Not identified Tumor extent: Intramucosal lesion: High-grade dysplasia Deep Tissue: Not applicable Margins: Main specimen margins: Negative for carcinoma Additional separately submitted margins (frozen tissue specimens): Negative for carcinoma Additional resection margins (non-frozen tissue): Not applicable Distance of tumor to nearest margin: 0.1 cm, lateral margin Lymph nodes: No nodes submitted or found pTNM classification: pT1 NX The above synoptic report complies, in slightly modified form, with the guidelines of the [employer] [place] [employer] Protocols and the AJCC Cancer Staging Manual, 8th edition, 2017, for the reporting of cancer specimens. Lung Cytology 08/20/22: *CYTOLOGIC DIAGNOSIS* A. 4R LYMPH NODE, FNA (CYTOLOGY AND CELL BLOCK): FINAL DIAGNOSIS: No Malignant Cells Are Identified Lymphoid Population (Cell Block Only) Immediate Study: Adequacy/Preliminary Diagnosis: Not Adequate Ashley Castañeda, CT (ASCP), August 20, 2022 B. STATION 7 LYMPH NODE, FNA (CYTOLOGY AND CELL BLOCK): FINAL DIAGNOSIS: Squamous Cell Carcinoma Note: Tumor cells present on cell block. Immediate Study: Adequacy/Preliminary Diagnosis: Adequate Ashley Castañeda, CT (ASCP), August 20, 2022 C. 4L LYMPH NODE, FNA (CYTOLOGY AND CELL BLOCK): FINAL DIAGNOSIS: Squamous Cell Carcinoma (Cell Block Only) Immediate Study: Adequacy/Preliminary Diagnosis: Not Adequate Ashley Castañeda, CT (ASCP), August 20, 2022 D. LUNG, LEFT LOWER LOBE, FNA (CYTOLOGY AND CELL BLOCK): FINAL DIAGNOSIS: Squamous Cell Carcinoma Note: Tumor cells present on cell block. Impression/Plan: Overall I believe patient is doing well and healing well. At this point I am recommending patient proceed with local [employer] for lung cancer. The patient's case was reviewed at tumor board and all agreed to observe the neck given the new diagnosis of lung cancer. Will plan for close clinical observation with imaging. She has no further restrictions and can resume normal diet. Patient to return to clinic for surveillance follow-up visit in 3 months or sooner if new concerns arise. Attending Physician Attestation I independently interviewed, examined and formulated the medical decision making. Any procedures were performed by myself. The details of my interview, examination findings, and medical decision-making confirmed the findings below. I have personally amended the clinical encounter documentation where appropriate. I saw this patient with JACINTO Monten[place]ro and personally wrote the impression and plan. Etienne Mejía MD Otolaryngology-Head and Neck Surgery documented in this encounter [facility] 09-01-2022 Instructions Mackenzie Gonzalez RN - 09/01/2022 1:15 PM EDT Please call Dr. Samantha Mann's primary nurse at [phone] if you notice any new lumps in head or neck, new onset of difficulty with swallowing, persistent ear pain, hoarseness or new pain in head and neck that does not go away for 2 weeks. For covid vaccine call [phone] ([phone]). [facility] is now providing 3rd covid vaccine doses. documented in this encounter [facility] 09-01-2022 History of Present illness Narrative Ms. 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 She had a cough, and workup revealed a left lower lobe lung mass. She then went on to have a bronchoscopy and endobronchial ultrasound performed that showed positive for squamous cell cancer as well as metastatic disease in the 4L subcarinal lymph node. There was no other evidence of metastatic disease in the chest. It appears from the appearance on the scan that it is more likely an independent primary cancer, less likely a metastasis from colon cancer. She is currently asymptomatic except for the cough. Denies shortness of breath or changes in her respiratory function. Clinical stage is based on CT alone and IIID, multilevel disease. She, based on this, may be a candidate for chemoradiation therapy. The patient has to get a CT-PET scan as well as a brain MRI to complete her staging. We will add PDL-1 molecular testing to her lung cancer to determine the role for immunotherapy. The patient is from the [place] area and is interested in the obtaining her treatment up there. We talked about the consultation with the [facility] in [place]. She is agreeable with the plan. (DOC:[id number]) documented in this encounter [facility] 09-01-2022 History and physical note History and Physical Patient: Sarah Merchant Date: 09/01/2022 8:52 AM Attending Physician: Milo Ponce MD Chief Complaint: Chief Complaint Patient presents with New Patient WATER [employer]AXI [employer]TAIN cough; recent surgery in July for excision of mouth lesion HPI: Sarah Merchant is a 71 y.o. female former smoker with SCC in situ s/p direct laryngoscopy, esophagoscopy, FOM excision, and bilateral sialodochoplasty who was referred for evaluation of biopsy confirmed left lower lobe SCC concerning for metastasis versus new primary. Her other past medial history is significant for DCIS of the left breast, AAA s/p repair 2020, HTN, HLD, gout, and rheumatoid arthritis (on methotrexate). Following diagnosis of FOM SCC, staging CT chest on 08/04/22 revealed a 4.3 x 4.4 cm mass of the LLL, a 0.6 x 0.8 cm RUL nodule and mediastinal and left hilar adenopathy. She underwent FOM resection on 08/12/22, and EBUS on 08/20/22. Pathology of the LLL mass, 4L, and station 7 lymph nodes were consistent with squamous cell carcinoma. 4R was negative for malignancy. She was discussed in multidisciplinary tumor board and referred to thoracic surgery, thoracic oncology, and medical oncology. She is scheduled for PET CT on 09/17/22. She has not had any recent cardiac stress or pulmonary function testing. She denies recent fevers, SOB, MONDRAGON, hemoptysis and night sweats. She does endorse feeling cold frequently and has had a 30 lb weight loss since April which she feels may be related to stress. She is able to complete all ADLs independently without difficulty. Past Medical/Surgical History Past Medical History: Diagnosis Date Ductal carcinoma in situ (DCIS) of left breast Essential hypertension, benign Estrogen receptor positive status (ER+) Gout Hyperlipidemia Malignant neoplasm of breast Rheumatoid arthritis Past Surgical History: Procedure Laterality Date LARYNGOSCOPY DIRECT DIAGNOSTIC N/A 08/12/2022 Laterality: N/A; Surgeon: Etienne Mejía MD; Location[facility] OR ESOPHAGOSCOPY DIAGNOSTIC N/A 08/12/2022 Laterality: N/A; Surgeon: Etienne Mejía MD; Location: [facility] OR EXCISION LESION FLOOR OF MOUTH Left 08/12/2022 Laterality: Left; Surgeon: Etienne Mejía MD; Location: [facility] OR SIALODOCHOPLASTY Bilateral 08/12/2022 Laterality: Bilateral; Surgeon: Etienne Mejía MD; Location: [facility] OR GRAFT SKIN SPLIT THICKNESS EAR EYELID FACE MOUTH ORBIT (STSG) Bilateral 08/12/2022 Laterality: Bilateral; Surgeon: Etienne Mejía MD; Location: [facility] OR OTHER SURGICAL 2020 abdominal aortic aneurysm repair MASTECTOMY PARTIAL (LUMPECTOMY) Left OTHER SURGICAL L 2nd toe ambutated, TOTAL ABDOMINAL HYSTERECTOMY Ovaries remain Oncology History No history exists. She is not on home oxygen She does not have a history of stroke. Family History Family History Problem Relation Age of Onset No known problems Mother Lung Cancer Father at 58 Cancer- Other Sister not sure of cancer Breast Cancer Sister No known problems Maternal Grandmother No known problems Maternal Grandfather No known problems Paternal Grandmother No known problems Paternal Grandfather Social History Social History Tobacco Use Smoking status: Former Packs/day: 0.50 Years: 42.00 Total pack years: 21.00 Types: Cigarettes Start date: 03/15/1970 Quit date: 03/15/2012 Years since quittin.4 Smokeless tobacco: Never Substance Use Topics Alcohol use: Yes Alcohol/week: 10.0 standard drinks of alcohol Types: 4 Glasses of wine, 6 Standard drinks or equivalent per week Comment: Social use She does not have a history of daily use of narcotics for >30 days prior to this visit Living arrangement at the time of this visit: spouse Medications Current Outpatient Medications Medication Sig Acetaminophen 325 MG tablet Take 2 tablets by mouth every 6 hours as needed. Allopurinol 300 MG tablet Take 1 tablet by mouth daily every morning. Atorvastatin 40 MG tablet Take 1 tablet by mouth at bedtime. chlorhexidine (Peridex) 0.12 % Solution oral solution Swish and spit 15 mL 2 times daily for 14 days. Folic acid 1 MG tablet Take 2 tablets by mouth daily every morning. Gabapentin 100 MG capsule Take 1-3 capsules by mouth 2 times daily. Takes 100mg capsule in am and three 100mg capsules in pm Hydroxychloroquine 200 MG tablet Take 0.5-1 tablets by mouth 2 times daily. Reports taking one 200mg in am and 0.5 tab in evening leucovorin 15 MG tablet Take 1 tablet by mouth Once a week. Takes on am for follow up of methotrexate losartan 100 MG tablet Take 1 tablet by mouth daily every morning. methotrexate 2.5 MG tablet Take 4 tablets by mouth Once a week. Wednesdays- takes 4 tabs in am and 4 tabs in pm Metoprolol succinate 50 MG tablet XL Take 1 tablet by mouth daily every morning. Multiple Vitamins-Minerals (CENTRUM SILVER 50+WOMEN PO) Take 1 tablet by mouth daily every morning. oxyCODONE 5 MG tablet Take 1 tablet by mouth every 6 hours as needed for Moderate Pain for up to 7 days. (Patient not taking: Reported on 08/20/2022) POTASSIUM PO Take 1 tablet by mouth daily every morning. For leg cramps (over the counter) Senna 8.6 MG tablet Take 1 tablet by mouth daily. (Patient not taking: Reported on 08/20/2022) She is on chronic immunosuppressive therapy/corticosteroids >10 days at the time of this visit She is not on chronic anticoagulation >10 days at the time of this visit Allergies/Immunizations Allergies: Patient has no known allergies. Immunizations: Immunization History Administered Date(s) Administered COVID-19 vaccine, mRNA, Pfizer, 0.3 ML 05/23/2020, 06/13/2020 Review of Systems At the time of the visit patient reports as noted in [facility]. All other systems queried and are negative. OBJECTIVE: Physical Exam Blood pressure 111/56, pulse 82, temperature 97.4 F (36.3 C), temperature source Oral, resp. rate 16, height 1.6 m (5' 3 ), weight 65 kg (143 lb 3.2 oz), SpO2 94 %. on room air Constitutional: she is alert, oriented, well-developed, well-nourished, and in no acute distress. HEENT: Oropharynx is clear and moist. Extraocular motions are normal. Neck: Neck supple. No tracheal deviation present. No thyromegaly present. Cardiovascular: Normal rate and regular rhythm. No murmur heard. Pulmonary/Chest: Breathing non-labored. Lung sounds normal without wheezes or rales. She exhibits no crepitus. Abdomen: Abdomen soft, non-tender, non-distended. Bowel sounds present in all four quadrants. Musculoskeletal: She exhibits no edema. Lymphadenopathy: She has no cervical adenopathy. Neurological: She is alert and oriented. Skin: No rash noted. ECO Imaging/Procedures/Results Review: Personal review completed of: CT CHEST WITH CONTRAST, 08/04/2022 IMPRESSION: 1. Left lower lobe masslike opacity with extension towards the hilum is suspicious for malignancy. The left lower lobe bronchus is occluded with debris and many bronchi. There are tree-in-bud pattern centrilobular micronodules throughout the left lower lobe which likely represents distal bronchiole mucus plugging. 2. Right upper lobe nodule is technically indeterminate, but suspicious as well. 3. Adenopathy within the mediastinum and left hilum. 4. Significant atherosclerosis. CYTOLOGIC DIAGNOSIS 08/18/22 A. 4R LYMPH NODE, FNA (CYTOLOGY AND CELL BLOCK): FINAL DIAGNOSIS: No Malignant Cells Are Identified Lymphoid Population (Cell Block Only) Immediate Study: Adequacy/Preliminary Diagnosis: Not Adequate Ashley Castañeda, CT (ASCP), August 20, 2022 B. STATION 7 LYMPH NODE, FNA (CYTOLOGY AND CELL BLOCK): FINAL DIAGNOSIS: Squamous Cell Carcinoma Note: Tumor cells present on cell block. Immediate Study: Adequacy/Preliminary Diagnosis: Adequate Ashley Castañeda, CT (ASCP), August 20, 2022 C. 4L LYMPH NODE, FNA (CYTOLOGY AND CELL BLOCK): FINAL DIAGNOSIS: Squamous Cell Carcinoma (Cell Block Only) Immediate Study: Adequacy/Preliminary Diagnosis: Not Adequate Ashley Castañeda, CT (ASCP), August 20, 2022 D. LUNG, LEFT LOWER LOBE, FNA (CYTOLOGY AND CELL BLOCK): FINAL DIAGNOSIS: Squamous Cell Carcinoma Note: Tumor cells present on cell block. Immediate Study: Adequacy/Preliminary Diagnosis: Adequate Ashley Castañeda, CT (ASCP), August 20, 2022 ASSESSMENT/PLAN: 71 y.o. female former smoker with SCC in situ s/p direct laryngoscopy, esophagoscopy, FOM excision, and bilateral sialodochoplasty who was referred for evaluation of biopsy confirmed left lower lobe SCC concerning for metastasis versus new primary. Following diagnosis of FOM SCC, staging CT chest on 08/04/22 revealed a 4.3 x 4.4 cm mass of the LLL, a 0.6 x 0.8 cm RUL nodule and mediastinal and left hilar adenopathy. She underwent FOM resection on 08/12/22, and EBUS on 08/20/22. Pathology of the LLL mass, 4L, and station 7 lymph nodes were consistent with squamous cell carcinoma. 1. All relevant imaging and data reviewed by myself and Milo Ponce MD. Patient is clinical stage IIIB and is not a candidate for surgical resection. She would like to meet with local oncologist in [place], [place] to discuss chemoradiation options. We would recommend that she also have a brain MRI to complete staging and order placed for PDL-1 add on. She may follow up with thoracic surgery on an as needed basis. Jaelyn Yen, CIVIL ENGINEER'S AIDE-DATABASE DEVELOPER # [id number] Associated attestation - Milo Ponce MD - 09/03/2022 6:09 PM EDT Thoracic Surgery Attending I saw and independently examined the patient. I agree with the history of present illness, past medical history, family history, social history, medication list, and allergies as listed. Independent review of labs and radiographs, as well as review medical records, confirm the findings noted below, I agree with the assessment and plan as noted below. I have reviewed the note and made edits as neccessary. Please see the separate progress note for my impression. The plan was developed mutually at the time of the clinic visit. The nurse practitioner/physician bar assistant and I have spoken with the patient and provided written and verbal instructions for the patient. The JANNETH note has been reviewed and I agree with the assessment and plan. Follow-up arrangements were made prior to the patient being discharged from the clinic. Milo Ponce MD [facility] 09-01-2022 History and physical note History and Physical Patient: Sarah Merchant Date: 09/01/2022 8:52 AM Attending Physician: Milo Ponce MD Chief Complaint: Chief Complaint Patient presents with New Patient WATER TAXI CAPTAIN cough; recent surgery in July for excision of mouth lesion HPI: Sarah Merchant is a 71 y.o. female former smoker with SCC in situ s/p direct laryngoscopy, esophagoscopy, FOM excision, and bilateral sialodochoplasty who was referred for evaluation of biopsy confirmed left lower lobe SCC concerning for metastasis versus new primary. Her other past medial history is significant for DCIS of the left breast, AAA s/p repair 2020, HTN, HLD, gout, and rheumatoid arthritis (on methotrexate). Following diagnosis of FOM SCC, staging CT chest on 08/04/22 revealed a 4.3 x 4.4 cm mass of the LLL, a 0.6 x 0.8 cm RUL nodule and mediastinal and left hilar adenopathy. She underwent FOM resection on 08/12/22, and EBUS on 08/20/22. Pathology of the LLL mass, 4L, and station 7 lymph nodes were consistent with squamous cell carcinoma. 4R was negative for malignancy. She was discussed in multidisciplinary tumor board and referred to thoracic surgery, thoracic oncology, and medical oncology. She is scheduled for PET CT on 09/17/22. She has not had any recent cardiac stress or pulmonary function testing. She denies recent fevers, SOB, [place]DRAGON, hemoptysis and night sweats. She does endorse feeling cold frequently and has had a 30 lb weight loss since April which she feels may be related to stress. She is able to complete all ADLs independently without difficulty. Past Medical/Surgical History Past Medical History: Diagnosis Date Ductal carcinoma in situ (DCIS) of left breast Essential hypertension, benign Estrogen receptor positive status (ER+) Gout Hyperlipidemia Malignant neoplasm of breast Rheumatoid arthritis Past Surgical History: Procedure Laterality Date LARYNGOSCOPY DIRECT DIAGNOSTIC N/A 08/12/2022 Laterality: N/A; Surgeon: Etienne Mejía MD; [facility] OR ESOPHAGOSCOPY DIAGNOSTIC N/A 08/12/2022 Laterality: N/A; Surgeon: Etienne Mejía MD; Location: [facility] MAIN OR EXCISION LESION FLOOR OF MOUTH Left 08/12/2022 Laterality: Left; Surgeon: Etienne Mejía MD; Location: [facility] MAIN OR SIALODOCHOPLASTY Bilateral 08/12/2022 Laterality: Bilateral; Surgeon: Etienne Mejía MD; Location: [facility] MAIN OR GRAFT SKIN SPLIT THICKNESS EAR EYELID FACE MOUTH ORBIT (STSG) Bilateral 08/12/2022 Laterality: Bilateral; Surgeon: Etienne Mejía MD; Location: [facility] MAIN OR OTHER SURGICAL 2020 abdominal aortic aneurysm repair MASTECTOMY PARTIAL (LUMPECTOMY) Left OTHER SURGICAL L 2nd toe ambutated, TOTAL ABDOMINAL HYSTERECTOMY Ovaries remain Oncology History No history exists. She is not on home oxygen She does not have a history of stroke. Family History Family History Problem Relation Age of Onset No known problems Mother Lung Cancer Father at 58 Cancer- Other Sister not sure of cancer Breast Cancer Sister No known problems Maternal Grandmother No known problems Maternal Grandfather No known problems Paternal Grandmother No known problems Paternal Grandfather Social History Social History Tobacco Use Smoking status: Former Packs/day: 0.50 Years: 42.00 Total pack years: 21.00 Types: Cigarettes Start date: 03/15/1970 Quit date: 03/15/2012 Years since quittin.4 Smokeless tobacco: Never Substance Use Topics Alcohol use: Yes Alcohol/week: 10.0 standard drinks of alcohol Types: 4 Glasses of wine, 6 Standard drinks or equivalent per week Comment: Social use She does not have a history of daily use of narcotics for >30 days prior to this visit Living arrangement at the time of this visit: spouse Medications Current Outpatient Medications Medication Sig Acetaminophen 325 MG tablet Take 2 tablets by mouth every 6 hours as needed. Allopurinol 300 MG tablet Take 1 tablet by mouth daily every morning. Atorvastatin 40 MG tablet Take 1 tablet by mouth at bedtime. chlorhexidine (Peridex) 0.12 % Solution oral solution Swish and spit 15 mL 2 times daily for 14 days. Folic acid 1 MG tablet Take 2 tablets by mouth daily every morning. Gabapentin 100 MG capsule Take 1-3 capsules by mouth 2 times daily. Takes 100mg capsule in am and three 100mg capsules in pm Hydroxychloroquine 200 MG tablet Take 0.5-1 tablets by mouth 2 times daily. Reports taking one 200mg in am and 0.5 tab in evening leucovorin 15 MG tablet Take 1 tablet by mouth Once a week. Takes on am for follow up of methotrexate losartan 100 MG tablet Take 1 tablet by mouth daily every morning. methotrexate 2.5 MG tablet Take 4 tablets by mouth Once a week. Wednesdays- takes 4 tabs in am and 4 tabs in pm Metoprolol succinate 50 MG tablet XL Take 1 tablet by mouth daily every morning. Multiple Vitamins-Minerals (CENTRUM SILVER 50+WOMEN PO) Take 1 tablet by mouth daily every morning. oxyCODONE 5 MG tablet Take 1 tablet by mouth every 6 hours as needed for Moderate Pain for up to 7 days. (Patient not taking: Reported on 08/20/2022) POTASSIUM PO Take 1 tablet by mouth daily every morning. For leg cramps (over the counter) Senna 8.6 MG tablet Take 1 tablet by mouth daily. (Patient not taking: Reported on 08/20/2022) She is on chronic immunosuppressive therapy/corticosteroids >10 days at the time of this visit She is not on chronic anticoagulation >10 days at the time of this visit Allergies/Immunizations Allergies: Patient has no known allergies. Immunizations: Immunization History Administered Date(s) Administered COVID-19 vaccine, mRNA, Pfizer, 0.3 ML 05/23/2020, 06/13/2020 Review of Systems At the time of the visit patient reports as noted in [facility]. All other systems queried and are negative. OBJECTIVE: Physical Exam Blood pressure 111/56, pulse 82, temperature 97.4 F (36.3 C), temperature source Oral, resp. rate 16, height 1.6 m (5' 3 ), weight 65 kg (143 lb 3.2 oz), SpO2 94 %. on room air Constitutional: she is alert, oriented, well-developed, well-nourished, and in no acute distress. HEENT: Oropharynx is clear and moist. Extraocular motions are normal. Neck: Neck supple. No tracheal deviation present. No thyromegaly present. Cardiovascular: Normal rate and regular rhythm. No murmur heard. Pulmonary/Chest: Breathing non-labored. Lung sounds normal without wheezes or rales. She exhibits no crepitus. Abdomen: Abdomen soft, non-tender, non-distended. Bowel sounds present in all four quadrants. Musculoskeletal: She exhibits no edema. Lymphadenopathy: She has no cervical adenopathy. Neurological: She is alert and oriented. Skin: No rash noted. ECO Imaging/Procedures/Results Review: Personal review completed of: CT CHEST WITH CONTRAST, 08/04/2022 IMPRESSION: 1. Left lower lobe masslike opacity with extension towards the hilum is suspicious for malignancy. The left lower lobe bronchus is occluded with debris and many bronchi. There are tree-in-bud pattern centrilobular micronodules throughout the left lower lobe which likely represents distal bronchiole mucus plugging. 2. Right upper lobe nodule is technically indeterminate, but suspicious as well. 3. Adenopathy within the mediastinum and left hilum. 4. Significant atherosclerosis. CYTOLOGIC DIAGNOSIS 08/18/22 A. 4R LYMPH NODE, FNA (CYTOLOGY AND CELL BLOCK): FINAL DIAGNOSIS: No Malignant Cells Are Identified Lymphoid Population (Cell Block Only) Immediate Study: Adequacy/Preliminary Diagnosis: Not Adequate Ashley Castañeda, CT (ASCP), August 20, 2022 B. STATION 7 LYMPH NODE, FNA (CYTOLOGY AND CELL BLOCK): FINAL DIAGNOSIS: Squamous Cell Carcinoma Note: Tumor cells present on cell block. Immediate Study: Adequacy/Preliminary Diagnosis: Adequate Ashley Castañeda, CT (ASCP), August 20, 2022 C. 4L LYMPH NODE, FNA (CYTOLOGY AND CELL BLOCK): FINAL DIAGNOSIS: Squamous Cell Carcinoma (Cell Block Only) Immediate Study: Adequacy/Preliminary Diagnosis: Not Adequate Ashley Castañeda, CT (ASCP), August 20, 2022 D. LUNG, LEFT LOWER LOBE, FNA (CYTOLOGY AND CELL BLOCK): FINAL DIAGNOSIS: Squamous Cell Carcinoma Note: Tumor cells present on cell block. Immediate Study: Adequacy/Preliminary Diagnosis: Adequate Ashley Castañeda, CT (ASCP), August 20, 2022 ASSESSMENT/PLAN: 71 y.o. female former smoker with SCC in situ s/p direct laryngoscopy, esophagoscopy, FOM excision, and bilateral sialodochoplasty who was referred for evaluation of biopsy confirmed left lower lobe SCC concerning for metastasis versus new primary. Following diagnosis of FOM SCC, staging CT chest on 08/04/22 revealed a 4.3 x 4.4 cm mass of the LLL, a 0.6 x 0.8 cm RUL nodule and mediastinal and left hilar adenopathy. She underwent FOM resection on 08/12/22, and EBUS on 08/20/22. Pathology of the LLL mass, 4L, and station 7 lymph nodes were consistent with squamous cell carcinoma. 1. All relevant imaging and data reviewed by myself and Milo Ponce MD. Patient is clinical stage IIIB and is not a candidate for surgical resection. She would like to meet with local oncologist in [place], [place] to discuss chemoradiation options. We would recommend that she also have a brain MRI to complete staging and order placed for PDL-1 add on. She may follow up with thoracic surgery on an as needed basis. Jaelyn Yen, CIVIL ENGINEER'S AIDE-DATABASE DEVELOPER # [id number] Associated attestation - Milo Ponce MD - 09/03/2022 6:09 PM EDT Thoracic Surgery Attending I saw and independently examined the patient. I agree with the history of present illness, past medical history, family history, social history, medication list, and allergies as listed. Independent review of labs and radiographs, as well as review medical records, confirm the findings noted below, I agree with the assessment and plan as noted below. I have reviewed the note and made edits as neccessary. Please see the separate progress note for my impression. The plan was developed mutually at the time of the clinic visit. The nurse practitioner/physician bar assistant and I have spoken with the patient and provided written and verbal instructions for the patient. The JANNETH note has been reviewed and I agree with the assessment and plan. Follow-up arrangements were made prior to the patient being discharged from the clinic. Milo Ponce MD documented in this encounter [facility] 08-13-2022 Note Formatting of this n ote is different from the original. 08/13/22 1350 Referral Information Arrived From admitted as an inpatient Final Discharge Planning Discharge Disposition Home Services at Discharge DME (Outpatient follow-up) Final DME Walker CM/SW AVS Portion Completed Yes Plan Plan Plan for discharge to home today Patient/Family In Agreement With Plan yes Transport Request Mode of Transfer private vehicle Accompanied By significant other Henry Inpatient PCRM Discharge Note Patient discussed in medical rounds for discharge to home. PCRM met with the patient/family/spouse to discuss final discharge plan. Services for Discharge Outpatient follow-up appointments Consults with Final Discharge Recommendations Pulm - will see patient on 08/20 from bronch Lines/Tubes/Drains/Wounds/Suppli es none Medications No barriers anticipated in obtaining discharge medications. No prior authorizations anticipated. Reconciliation of medications to be completed by the medical team. Oxy and peridex sent to [facility], total cost is $3. Durable Medical Equipment Walker delivered to bedside via [facility] Medical Choice Was Patient Choice Provided: Yes Transportation Transportation will be provided by spouse. Education Discharge education provided by the medical team and updated in the After Visit Summary. Follow Up(s) Any follow up requested by the medical team arranged. Appointments in the After Visit Summary. 08/20/2022 11:30 AM Payton Elder Department of Otolaryngology Arrive at: Arrive to Ground Floor Registration [facility] 08/20/2022 2:45 PM Liberty Escalera; [facility] [address] [place] [address] Arrive at: Arrive to [facility], Second Floor Registration Desk [facility] 09/01/2022 1:15 PM Etienne Mejía Department of Otolaryngology Arrive at: Arrive to Ground Floor Registration [facility] Was Ambulatory PCRM added to the Care Team? No needs. The PCRM has updated the patient's nurse regarding the final discharge plan. Risk of Readmission: 4.5 Category Reference: Low: 0% - 5% Medium - Low: 5.1% - 10% Medium - High: 10.1% - 16% High: 16.1% - 100% Readmission Risk Interventions Documented: Yes No other discharge needs have been identified at this time. This plan was developed in collaboration with the patient and caregiver/preferred decision maker. Patient and family are in agreement with final discharge plan. Please refer to AVS and medical record for additional information. Patient instructed to call with questions. PCRM will continue to follow with medical team for any additional discharge planning needs. La AMIN RN Patient Care Materials Specialist Phone [phone] For assistance on evenings/weekends, please page the float team at [phone]. [facility] 08-13-2022 Miscellaneous Notes 08/13/22 1359 Referral Information Arrived From admitted as an inpatient Final Discharge Planning Discharge Disposition Home Services at Discharge DME (Outpatient follow-up) Final DME Walker CM/SW AVS Portion Completed Yes Plan Plan Plan for discharge to home today Patient/Family In Agreement With Plan yes Transport Request Mode of Transfer private vehicle Accompanied By significant other Henry Inpatient PCRM Discharge Note Patient discussed in medical rounds for discharge to home. PCRM met with the patient/family/spouse to discuss final discharge plan. Services for Discharge Outpatient follow-up appointments Consults with Final Discharge Recommendations Pulm - will see patient on 08/20 from bronch Lines/Tubes/Drains/Wounds/Suppli es none Medications No barriers anticipated in obtaining discharge medications. No prior authorizations anticipated. Reconciliation of medications to be completed by the medical team. Oxy and peridex sent to [facility], total cost is $3. Durable Medical Equipment Walker delivered to bedside via [facility] Medical Choice Was Patient Choice Provided: Yes Transportation Transportation will be provided by spouse. Education Discharge education provided by the medical team and updated in the After Visit Summary. Follow Up(s) Any follow up requested by the medical team arranged. Appointments in the After Visit Summary. 08/20/2022 11:30 AM Payton Elder Department of Otolaryngology Arrive at: Arrive to Ground Floor Registration [facility] 08/20/2022 2:45 PM Liberty Escalera; [facility] [address] [place] [address] Arrive at: Arrive to [facility], Second Floor Registration Desk [facility] 09/01/2022 1:15 PM Etienne Mejía Department of Otolaryngology Arrive at: Arrive to Ground Floor Registration [facility] Was Ambulatory PCRM added to the Care Team? No needs. The PCRM has updated the patient's nurse regarding the final discharge plan. Risk of Readmission: 4.5 Category Reference: Low: 0% - 5% Medium - Low: 5.1% - 10% Medium - High: 10.1% - 16% High: 16.1% - 100% Readmission Risk Interventions Documented: Yes No other discharge needs have been identified at this time. This plan was developed in collaboration with the patient and caregiver/preferred decision maker. Patient and family are in agreement with final discharge plan. Please refer to AVS and medical record for additional information. Patient instructed to call with questions. PCRM will continue to follow with medical team for any additional discharge planning needs. La AMIN RN Patient Care Materials Specialist Phone [phone] For assistance on evenings/weekends, please page the float team at [phone]. 08/13/22 1007 Referral Information Arrived From admitted as an inpatient Readmission Information Was patient readmitted within 30 Days? No Information Source Information Source patient Information Source Name Cookie Information Source Number see demographics Outpatient Providers Outpatient Providers Updated In I[facility] Yes Contact Information Supervisor Underwriting Clerks/SW Added to Care Team Yes This Veneer Drier Tailer is Primary Supervisor Underwriting Clerks/SW No Supervisor Underwriting Clerks Name Eli Soler Supervisor Underwriting Clerks's Living Environment Lives With spouse Living Arrangements house Provides Primary Care For no one Primary Care Provided By self Support System Immediate family Able to Return to Prior Arrangements yes Functional Status Patient's Functional Status Prior To This Admission? Independent Are There Status Changes This Admisson? No Changes Observed Since Admission? No Changes Observed Concerns With Patient Being Able To Care For Themselves At Discharge? Has Assistance (Friend, Family, Skilled Provider) Who Is Patient's Primary Contact For Discharge Planning, Education And Care For Discharge? self or spouse Can Support Person Meet The Care Needs Of The Patient? Yes Employment/Financial Employed? Yes Employment Details works in [employer] at local [employer]; works in [employer] Employment/Financial Concerns no Source Of Income salary/wages Financial Concerns none Insurance Medical Insurance Verified Yes Prescription Coverage Yes Pharmacy updated in IHIS Yes Initial Discharge Planning Home Care Services ([employer]) No Home Therapies ([employer]) None DME ([employer]) None Medical Supplies ([employer]) None Patient Goal for Discharge Get better Anticipated discharge disposition Home Anticipated Services at Discharge Outpatient follow up Anticipated Changes Related to Illness none Current Discharge Risk high risk diagnoses (i.e., CHF, Stroke, DM, chronic pain, abdominal pain, nausea and vomiting);>65 years of age Transportation Available family or friend will provide;car Assessment/Concerns to be Addressed Concerns To Be Addressed denies needs/concerns at this time PCRM Initial Assessment Met with Cookie to complete the initial assessment. Explained role and function of PCRM in multidisciplinary team. Contact number provided for questions. Demographic information reviewed with patient/family and confirmed as correct. Reason for Admission: POD#1 DLE, FOM excision, bilateral sialodochoplasty Estimated length of stay: TBD Advanced directives Patient does not have Advanced Directives on File Lines/Drains/Tubes none Initial PCRM Discharge Planning Patient lives with her in a 2 story house with first floor bed/bath. She is independent at home and denies the use or need for HHC/DME. She voices good support from family. Final plan will be determined closer to discharge, pending therapy and medical team recommendations. Patient/family verbalized understanding and agreement with the plan of care. Patient/family have no questions at this time. [facility]M will continue to follow patient with multidisciplinary team for ongoing assessment of needs and for discharge planning. Medical team updated. La AMIN RN Patient Care Materials Specialist Phone [phone] For assistance on evenings/weekends, please page the float team at [phone]. Problem: Patient Care Overview Goal: Plan of Care Review Outcome: Ongoing Goal: Individualization & Mutuality Outcome: Ongoing Goal: Discharge Needs Assessment Outcome: Ongoing Goal: Interdisciplinary Rounds/Family Conf Outcome: Ongoing On admission to [facility], from PACU a dual RN initial assessment of skin condition was performed by Kellie Grimm RN and Sondra MORAN. Skin Assessment: On assessment, patient has no wounds noted. 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] PROCEDURE PERFORMED Procedure(s) (LRB): LARYNGOSCOPY DIRECT DIAGNOSTIC (N/A) ESOPHAGOSCOPY DIAGNOSTIC (N/A) EXCISION LESION FLOOR OF MOUTH (Left) SIALODOCHOPLASTY (Bilateral) GRAFT SKIN SPLIT THICKNESS EAR EYELID FACE MOUTH ORBIT (STSG) (Bilateral) PRIMARY CLOSURE No INTRAOPERATIVE FINDINGS Left ventral tongue/floor of mouth lesion, excised Frozen margins negative for carcinoma SURGEON Surgeon(s) and Role: * Etienne Mejía MD - Primary ANESTHESIOLOGIST Anesthesiologist: Filiberto Ames MD [employer] Assoc Assisting: Aj Miller MD SURGICAL STAFF Construction Equipment Mechanic: Joo Bell RN Relief Construction Equipment Mechanic: Yulia Barnett RN Relief Scrub: Yulia Barnett RN Scrub Person: Milagros Ballard RN; Shanique Schumacher; Dimitri Villanueva RN Resident Assisting: Joo Matias MD COMPLICATIONS None ESTIMATED BLOOD LOSS 20 mL SPECIMENS ID Type Source Tests Collected by Time Destination 1 : Left floor of mouth excision, stitch = medial Permanent SURG PATH SURG PATH REQUEST Etienne Mejía MD 08/12/2022 1139 2 : Lateral margin Frozen SURG PATH SURG PATH REQUEST Etienne Mejía MD 08/12/2022 1143 3 : Superior margin Frozen SURG PATH SURG PATH REQUEST Etienne Mejía MD 08/12/2022 1143 4 : Inferior margin Frozen SURG PATH SURG PATH REQUEST Etinene Mejía MD 08/12/2022 1143 5 : Medial margin Frozen SURG PATH SURG PATH REQUEST Etienne Mejía MD 08/12/2022 1143 6 : Deep margin Frozen SURG PATH SURG PATH REQUEST Etienne Mejía MD 08/12/2022 1144 Joo Matias MD August 12, 2022 1:02 PM Assessment: POD 0 Surgeon: Samantha Diagnosis: FOM SCCis Procedure: DLE, FOM excision, bilateral sialodochoplasty Plan Airway: [place] Diet: soft diet x 2 weeks Wound (xander/sutures): bolster FO (discharge with removal at 2 week follow up - if not tolerating can discuss removal prior to DC with Samantha) Antibiotics/Cultures: peridex x 2 weeks Labs (Ca, PTH, TSH, Free T4): per protocol Anticoagulation: Std DVT ppx PT/OT/IT NETWORK ADMINISTRATOR: PT/OT Consults: IP for pulmonary biopsy Pertinent PMHx: HTN, AAA s/p repair 2020, gout, breast cancer, RA Other: Left lower lobe mass with extension to hilum, TB rec IP biopsy Daily Plan: - IP Consult for inpatient biopsy Path: Dispo: pending IP biopsy Follow ups: Samantha 2 weeks for bolster removal Pt denies history of chemo and radiation. Pt denies metal or foreign objects in body. Denies history of seizures. Operative Report DATE OF SERVICE: 08/12/2022 PATIENT: Sarah Merchant PREOPERATIVE DIAGNOSIS: 1. Remote smoking history 2. Rheumatoid arthritis 3. 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 Left lung mass of unknown etiology POSTOPERATIVE DIAGNOSIS: 1. Remote smoking history 2. Rheumatoid arthritis 3. 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 Left lung mass of unknown etiology PROCEDURE: 1. Direct Laryngoscopy 2. Esophagoscopy 3. Floor of mouth excision 4. Left sialodochoplasty 5. Full thickness skin graft harvest (right posterior auricular) and inset for floor of mouth reconstruction, 2 x 1.5 cm SURGEON: Etienne Mejía MD AVIATION MECHANIC: Joo Matias MD ANESTHESIA: General endotracheal. ESTIMATED BLOOD LOSS: 20 mL. COMPLICATIONS: None CONDITION: Stable to PACU. INTRAOPERATIVE FINDINGS: 1. Left ventral tongue/floor of mouth lesion, excised 2. Frozen margins negative for carcinoma SPECIMEN: ID Type Source Tests Collected by Time Destination 1 : Left floor of mouth excision, stitch = medial Permanent SURG PATH SURG PATH REQUEST Etienne Mejía MD 08/12/2022 1139 2 : Lateral margin Frozen SURG PATH SURG PATH REQUEST Etienne Mejía MD 08/12/2022 1143 3 : Superior margin Frozen SURG PATH SURG PATH REQUEST Etienne Mejía MD 08/12/2022 1143 4 : Inferior margin Frozen SURG PATH SURG PATH REQUEST Etienne Mejía MD 08/12/2022 1143 5 : Medial margin Frozen SURG PATH SURG PATH REQUEST Etienne Mejía MD 08/12/2022 1143 6 : Deep margin Frozen SURG PATH SURG PATH REQUEST Etienne Mejía MD 08/12/2022 1144 INDICATIONS AND CONSENT: Sarah Merchant is a 71 y.o. who presented to the Otolaryngology clinic with newly diagnosed midline/left floor of mouth squamous cell carcinoma in situ. On work-up there was a left lung mass identified. The case was reviewed at tumor board and given the unlikely source as the oral cavity, recommended plan was for excision followed by admission for expedite lung mass work up. They were therefore offered the aforementioned procedures. The procedure, risks, benefits, alternatives, potential complications, possible outcomes as well as the option of no treatment were reviewed with the patient who indicated they understood and wished to proceed forward with the procedure. Informed consent was obtained. DESCRIPTION OF PROCEDURE: On 08/12/2022, the patient was identified in the preoperative area, consent confirmed, and transported to the operating suite. They were then transferred to the operating room table and placed in a supine position. After induction of general endotracheal anesthesia, the bed was rotated 180 degrees and a proper surgeon initiated time out was performed. Our incisions were marked and then infiltrated with 1% lidocaine with 1:100,000 epinephrine. A maxillary tooth guard was placed to protect the upper dentition. The dedo laryngoscope was then carefully inserted into the oral cavity and sequential used to examine the oral cavity, oropharynx, hypopharynx and larynx. Examination revealed known left floor of mouth/ventral tongue lesion involving the left Mcnary's ducts, 13 mm x 15 mm. Lesion was superficial with appearance of erythroplakia. No other lesions noted. The laryngoscope was then removed under direct visualization without injury to the surrounding structures. We then proceeded with a flexible esophagoscopy. The esophagoscope was advanced through the upper esophageal inlet and advanced distally into the stomach. The scope was slowly withdrawn taking care to examine the length of the esophagus. The esophagus was examined and noted to be free of any lesions or masses. There was no stigmata of perforation. The esophagoscope was then removed without injury to the surrounding structures and the tooth guard removed. The patient was prepped and draped in sterile fashion. Next, we proceeded with harvest of a right posterior auricular full thickness skin graft, 2 cm x 1.5 cm. An ellipse incision was planned along skin tension lines. The skin was excised to the dermal plane. Maintaining this plane, the skin graft was released and set aside for later reconstruction. The dermis was removed to the subcutaneous tissues. We proceeded with undermining for wound closure. Hemostasis was obtained at the donor site and closed with 4-0 Vicryl for dermal closure followed by 5-0 Fast gut for skin closure. Next, we turned out attention to resection of the floor of mouth lesion. A 0.5 mm - 1 cm margin was marked around the lesion. The right Jessy's duct was not involved in the resection. The right duct was probed and was patent, with saliva expressed with palpation of the submandibular gland. The left Mcnary's duct was probed with a salivary probe. Using electrocautery, the mucosa was excised down to the muscle. Taking care to keep a deep margin and taking a small amount of muscle and sublingual salivary gland. The lesion was excised and removed, keeping the salivary probe in place and the duct divided as final release. The specimen was examined and noted to have complete excision. Circumferential and deep margins were sent for frozen pathology and was negative for carcinoma. Hemostasis was achieved. Next, we proceeded with sialodochoplasty. The duct was incised and sutured to the surrounding floor of mouth mucosa and wound bed, suturing the duct open with 5-0 chromic. Palpation of the submandibular gland had return of saliva. Next, the previously harvested skin graft was laid on the wound bed and sutured to the tongue/floor of mouth mucosa, taking care not to injur either duct. This was secured with 4-0 vicryl and chromic. A xeroform bolstered was sutured in place overlying the skin graft using 2-0 silk. We ensured the bolster was well secured. The oral cavity was irrigated and hemostasis confirmed. This concluded our procedure. The patient tolerated the procedure well without any operative complications. All counts were correct x2. The patient was rotated back to their original position, gently awakened from general anesthesia and taken to the PACU in stable condition. Dr. Mejía was present and participated through the entirety of the procedure. Associated attestation - Etienne Mejía MD - 08/12/2022 1:51 PM EDT ATTENDING PHYSICIAN ATTESTATION: I was physically present and actively involved throughout the entirety of this procedure as stated below. Etienne Mejía MD Otolaryngology-Head and Neck Surgery documented in this encounter [facility] 08-13-2022 Hospital course Narrative Discharge Summary Name: Sarah Merchant Age: 71 y.o. Birthday: 1950 Admit Date: 08/12/2022 6:46 AM Discharge Date: 08/13/2022 Admission Information Admitting Physician: Etienne Mejía MD Discharge Information Discharge Physician: Etienne Mejía Md Problem List Active Hospital Problems Diagnosis Oral cancer Resolved Hospital Problems No resolved problems to display. Brief Summary of Hospital Course for Discharge Summary: On 08/12/22, Sarah Merchant underwent direct laryngoscopy, esophagoscopy, FOM excision, and bilateral sialodochoplasty by Dr. Mejía. The patient tolerated the procedure well. The interventional pulmonology team was consulted for biopsy of left lower lobe lung mass. The procedure is scheduled for 08/20/22 in the outpatient setting. She will have a PET scan after pathology of the lung mass is confirmed. Patient was started on IV fluids and weaned as tolerated. Pain was initially controlled with IV pain medication and later transitioned to an oral regimen . Diet was advanced as tolerated to a soft diet. Home medications have been resumed. The patient was discharged to home with an intraoral bolster in place. At time of discharge the patient was afebrile, hemodynamically stable, voiding spontaneously, having bowel movements, and ambulating without difficulty. All discharge instructions and follow up appointments are in the patient After Visit Summary. Summary of last selected lab results and date obtained: Lab Results Component Value Date WBC 11.97 (H) 08/13/2022 HGB 10.9 (L) 08/13/2022 HCT 35.0 08/13/2022 PLATELET 422 (H) 08/13/2022 MCV 94.6 08/13/2022 Lab Results Component Value Date SODIUM 140 08/13/2022 POTASSIUM 4.7 08/13/2022 CHLORIDE 104 08/13/2022 CO2 23 08/13/2022 BUN 16 08/13/2022 CREATSERUM 0.75 08/13/2022 GLUCOSE 115 (H) 08/13/2022 No results found for: ALT, TRANSFERASEA, AST, GGT, GAMMAGT, ALKPHOS, BILITOTAL, BILIDIRECT Brief Summary of Labs for Discharge Summary: Discharge Orders WALKER FOR DISCHARGE Current Outpatient Meds: Medication List for when you go home START taking these medications Acetaminophen 325 MG tablet Take 2 tablets by mouth every 6 hours as needed. Commonly known as: TYLENOL chlorhexidine 0.12 % SOLN oral solution Swish and spit 15 mL 2 times daily for 14 days. Commonly known as: Peridex oxyCODONE 5 MG TABS Take 1 tablet by mouth every 6 hours as needed for Moderate Pain for up to 7 days. Commonly known as: ROXICODONE For diagnoses: Squamous cell carcinoma of floor of mouth sennosides 8.6 MG TABS Take 1 tablet by mouth daily. Commonly known as: SENNA Start taking on: August 14, 2022 CONTINUE taking these medications Allopurinol 300 MG TABS Take 1 tablet by mouth daily every morning. Commonly known as: ZYLOPRIM Atorvastatin 40 MG TABS Take 1 tablet by mouth at bedtime. Commonly known as: LIPITOR CENTRUM SILVER 50+WOMEN PO Take 1 tablet by mouth daily every morning. Folic acid 1 MG TABS Take 2 tablets by mouth daily every morning. Commonly known as: FOLVITE Gabapentin 100 MG CAPS Take 1-3 capsules by mouth 2 times daily. Takes 100mg capsule in am and three 100mg capsules in pm Commonly known as: NEURONTIN Hydroxychloroquine 200 MG TABS Take 0.5-1 tablets by mouth 2 times daily. Reports taking one 200mg in am and 0.5 tab in evening Commonly known as: PLAQUENIL leucovorin 15 MG tablet Take 1 tablet by mouth Once a week. Takes on am for follow up of methotrexate Commonly known as: WELLCOVORIN losartan 100 MG TABS Take 1 tablet by mouth daily every morning. Commonly known as: COZAAR methotrexate 2.5 MG tablet Take 4 tablets by mouth Once a week. Wednesdays- takes 4 tabs in am and 4 tabs in pm Commonly known as: TREXALL Metoprolol succinate 50 MG tablet XL Take 1 tablet by mouth daily every morning. Commonly known as: TOPROL-XL POTASSIUM PO Take 1 tablet by mouth daily every morning. For leg cramps (over the counter) STOP taking these medications traMADol 50 MG TABS Commonly known as: ULTRAM Medication Instructions: PLEASE CRNP YOUR OXYCODONE AND PERIDEX AND YOUR DISCOUNT DRUG MART. Follow-up: [facility] Follow up They have provided a walker. Call them with questions. Upcoming Appointments (up to five)-Some appointments for Medical Center outpatient clinics or diagnostic testing locations are not displayed below Provider Department Dept Phone 08/20/2022 2:45 PM Liberty Escalera; [facility] [address] [place] [address] Arrive at: Arrive to Alexandru Turpin, Second Floor Registration Desk [phone] 09/01/2022 1:15 PM Etienne Mejía Department of Otolaryngology Arrive at: Arrive to Ground Floor Registration [phone] documented in this encounter [facility] 08-13-2022 Hospital Discharge instructions La Hood RN - 08/13/2022 10:11 AM EDT Images from the original note were not included. Evening and Weekend Contacts If you have questions or concerns during evening, weekend, or holiday hours, please call: -[facility] and [facility] lock operator at [phone]. Ask the lock operator to page the on-call doctor for Ear, Nose and Throat, the service that was responsible for your care while you were in the hospital. If you having an emergency, call [phone]. Medical Issues: For clinical questions or medical concerns during regular business hours, please call [phone] and you will be routed to your physician's team. For discharge planning questions/concerns, please contact: BUSHRA Singleton, EVE-TRENT (Patient Care Materials Specialist) [phone] LUISA Benitez, EVE (Patient Care Materials Specialist) [phone] BUSHRA Maher (Target Aircraft Controller) [phone] Your Supervisor Underwriting Clerks (PCRM) has arranged your appointments for follow up based on your preference of where you would like to continue your care. If you are unable to attend appointments that have been arranged for you, it is your responsibility to call to reschedule at least 48 hours prior to the appointment date. Your [facility] has arranged additional care needs such as home health, infusion services, or durable medical equipment based on your preference and options available by your insurance and local agencies. Your After Visit Summary (AVS) has provided you with instructions for your discharge. It is your responsibility to ask questions if you have any. Please contact your medical care team at the numbers listed if you should have any additional questions. IMPORTANT: Automated Post Discharge Call Patient Information As part of your care, we will call you at the primary number we have on file, the day after you are discharged at 11 a.m. to check on you. Please expect a two-minute automated telephone call from the hospital. This call will come from [phone]. If you are unable to answer or do not receive the automated call, please call [phone] to complete this important evaluation. By answering the phone evaluation, a [facility] nurse will be notified if you have any questions or concerns and call you back. If you have an immediate medical need call your doctor s office, or if you have a medical emergency call 911. .You are scheduled for a Bronchoscopy procedure. Date: 08/20/2022 Time: 2:45PM Please check into the 2nd floor of [facility] 1 hour prior to the procedure. The termite control representative will direct you to the procedure area. General directions for this procedure: Take nothing by mouth after midnight (no eating, drinking, mints, gum, candy, smoking, etc) the night before the procedure. Only exception is you can take your morning medications with small sips of water on the morning of the procedure. If you're on blood thinner medications, please let our team know. If you're on enoxaparin (Lovenox) medication injections, you cannot take this medication within 24 hours of the procedure. If you're on any other other blood thinners, you may need to hold the medication for more than 24 hours. If you are a diabetic please let our team know. You must have a responsible rivet driver drive you to and from the procedure and you must have someone to stay with you the night after the procedure. If you have home oxygen please bring that with you the day of the procedure. Please be aware that pulmonary procedures DO NOT show up on your [facility] appointment list. If any questions, our Pulmonary Clinic . La Hood RN - 08/13/2022 2:19 PM EDT PLEASE CRNP YOUR OXYCODONE AND PERIDEX AND YOUR DISCOUNT DRUG MART. La Hood RN - 08/13/2022 10:11 AM EDT Activity: Please follow these instructions: As instructed by your physician. La Hood RN - 08/13/2022 10:11 AM EDT Dsyphagia Advanced Diet Diet to ease swallowing problems. All foods should be moist and in bite-sized pieces. Raw fruits and vegetables and breads are to be avoided. La Hood RN - 08/13/2022 10:11 AM EDT Notify Your Doctor or Nurse if you have any of the following: Bleeding or bruising If you have bleeding, apply pressure to the site and hold the pressure firmly for 5 minutes. If the bleeding continues, apply pressure again and call 911. If the bleeding stopped, call your doctor to report it. Catheter or tube problems Call your doctor or nurse if you have problems with your tube or catheter such as it breaks or leaks, falls out, is not able to be flushed and has drainage coming from around the tube site. Decreased Circulation Call your doctor or nurse if you have swelling, numbness or loss of feeling and color change in the skin to either very pale or blue rider in color. Airway changes: Call 911 if you suddenly have trouble breathing, hoarseness in your voice that does not clear, problems swallowing, shortness of breath and your trach came out. Decreased Urination Call your doctor or nurse if you are not able to urinate after 12 hours. Deep Vein Thrombosis Symptoms Call your doctor or nurse right away if you have any signs of blood clots such as -Tender, swollen or reddened areas anywhere in your leg. -Numbness or tingling in your lower leg or calf, or at the top of your leg or groin -Skin on you leg looks pale or blue or feels cold to touch -Chest pain or have trouble breathing -Fever or chills Fever, Chills, or Flu Call your doctor or nurse if you have a temperature greater than 100.5 degrees F and/or chills. GI Bleed Symptoms Call your doctor or nurse if you have signs of slow blood loss such as: -Black tarry bowel movements -Cold hands and feet -Weakness Call 911 if you suddenly have signs of blood loss such as: -Vomiting blood -Fast heart rate -Feeling faint or blacking out -Passing bright red blood from your rectum Nausea and Vomiting Call your doctor or nurse if you have nausea and vomiting that continues more than 24 hours, will not let you keep medicine down and will not let you keep fluids down Neurological Changes Call your doctor or nurse if you have: -A headache that does not ease with pain medication after 2 hours. -Mental confusion -Increased sleepiness -New onset of arm or hand weakness and leg or feet weakness -New or worse problems with talking -New or worse problems with balance or walking -A seizure Respiratory Changes Call your doctor or nurse if you have a cough that gets worse and blood in the sputum you cough up Unrelieved Pain Call your doctor or nurse if your pain gets worse or is not eased 1 hour after taking your pain medicine. Urinary Tract Infection Symptoms Call your doctor or nurse if you have signs of a urinary tract infection such as: -Urine is cloudy, bloody or has a bad odor -You leak urine or you have to urinate more often -You feel burning when you urinate -You have a temperature greater than 100.5 Wound Infection Symptoms Call your doctor or nurse right away if you have signs of infection at you wound such as: -More pain around the wound -Change in the amount , color and odor of drainage -The skin around the wound feels warm or has red streaks -The wound separates or opens up -You have a temperature greater than 100.5 documented in this encounter [facility] 08-13-2022 Note Formatting of this n ote is different from the original. 08/13/22 1007 Referral Information Arrived From admitted as an inpatient Readmission Information Was patient readmitted within 30 Days? No Information Source Information Source patient Information Source Name Cookie Information Source Number see demographics Outpatient Providers Outpatient Providers Updated In IHIS Yes Contact Information Supervisor Underwriting Clerks/SW Added to Care Team Yes This Veneer Drier Tailer is Primary Supervisor Underwriting Clerks/SW No Supervisor Underwriting Clerks Name Eli Soler Supervisor Underwriting Clerks's Living Environment Lives With spouse Living Arrangements house Provides Primary Care For no one Primary Care Provided By self Support System Immediate family Able to Return to Prior Arrangements yes Functional Status Patient's Functional Status Prior To This Admission? Independent Are There Status Changes This Admisson? No Changes Observed Since Admission? No Changes Observed Concerns With Patient Being Able To Care For Themselves At Discharge? Has Assistance (Friend, Family, Skilled Provider) Who Is Patient's Primary Contact For Discharge Planning, Education And Care For Discharge? self or spouse Can Support Person Meet The Care Needs Of The Patient? Yes Employment/Financial Employed? Yes Employment Details works in [employer] at [employer]; works in [employer] Employment/Financial Concerns no Source Of Income salary/wages Financial Concerns none Insurance Medical Insurance Verified Yes Prescription Coverage Yes Pharmacy updated in IHIS Yes Initial Discharge Planning Home Care Services ([employer]) No Home Therapies ([employer]) None DME ([employer]ING [employer]) None Medical Supplies (COMMANDING [employer]) None Patient Goal for Discharge Get better Anticipated discharge disposition Home Anticipated Services at Discharge Outpatient follow up Anticipated Changes Related to Illness none Current Discharge Risk high risk diagnoses (i.e., CHF, Stroke, DM, chronic pain, abdominal pain, nausea and vomiting);>65 years of age Transportation Available family or friend will provide;car Assessment/Concerns to be Addressed Concerns To Be Addressed denies needs/concerns at this time PCRM Initial Assessment Met with Cookie to complete the initial assessment. Explained role and function of PCRM in multidisciplinary team. Contact number provided for questions. Demographic information reviewed with patient/family and confirmed as correct. Reason for Admission: POD#1 DLE, FOM excision, bilateral sialodochoplasty Estimated length of stay: TBD Advanced directives Patient does not have Advanced Directives on File Lines/Drains/Tubes none Initial PCRM Discharge Planning Patient lives with her in a 2 story house with first floor bed/bath. She is independent at home and denies the use or need for HHC/DME. She voices good support from family. Final plan will be determined closer to discharge, pending therapy and medical team recommendations. Patient/family verbalized understanding and agreement with the plan of care. Patient/family have no questions at this time. PCRM will continue to follow patient with multidisciplinary team for ongoing assessment of needs and for discharge planning. Medical team updated. La AMIN RN Patient Care Materials Specialist Phone [phone] For assistance on evenings/weekends, please page the float team at [phone]. [facility] 08-13-2022 Consult note Associated Order (s): IP CONSULT TO INTERVENTIONAL RADIOLOGY Images from the original note were not included. Interventional Radiology Consult Note [facility] printing roller handler [id number] - [facility] printing roller handler [id number] Admission Date: 08/12/2022 Requesting Provider/Service: Anay Patel, PAC Reason for Consult: left lower lobe lung mass biopsy HPI/Imaging Findings: Sarah A Mayur is a 71 y.o. 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 CT Chest 08/04/22: Masslike opacity in the left lower lobe measures 4.3 x 4.4 cm on series 4 image 37. There is surrounding atelectasis as well as centrilobular micronodularity. Right upper lobe nodule measures 0.6 x 0.8 cm on series 5 image 77. Sedation Anticipated: Moderate with local Anticoagulation: Lovenox, 40 mg Laboratory Data: Lab Results Component Value Date/Time HGB 10.9 (L) 08/13/2022 02:26 AM PLATELET 422 (H) 08/13/2022 02:26 AM SODIUM 140 08/13/2022 02:26 AM POTASSIUM 4.7 08/13/2022 02:26 AM GFR 85 08/13/2022 02:26 AM GFR 83 08/04/2022 05:03 PM Allergies: No Known Allergies IMPRESSION AND PLAN Sarah Merchant is a 71 y.o. 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 Plan: Request for left lung mass biopsy received. This appears amenable to biopsy with CT guidance. Will schedule as imaging suite availability permits. 1. Please make patient NPO at midnight prior to the procedure 2. Coagulation goals: Hemoglobin > 8, Platelets > 50, INR < 1.5 3. Blood pressure goal: 160s/90 or lower 4. Anticoagulation, if any not listed, will need to be held per guidelines Discussed consulted with primary team provider AUBREY Phillips at 11:12 on 08/13/22 Consult reviewed with IR Attending Dr. Henry Orr who agrees with the above plan. Aureliano Castaneda MD; 08/13/2022 9:48 AM Important Notes Procedures are performed with either moderate sedation or anesthesia services. Both require the patient to be NPO (which includes tube feeds). Patients will need to lie flat comfortably for the duration of the procedure. Please be aware that patients requiring anesthesia services will require additional coordination which may increase the time from consult to procedure. [facility] Work Phone: 08-13-2022 Consult note Associated Order (s): IP CONSULT TO INTERVENTIONAL RADIOLOGY Images from the original note were not included. Interventional Radiology Consult Note [facility] printing roller handler [id number] - [facility] printing roller handler [id number] Admission Date: 08/12/2022 Requesting Provider/Service: AUBREY Phillips Reason for Consult: left lower lobe lung mass biopsy HPI/Imaging Findings: Sarah Merchant is a 71 y.o. 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 CT Chest 08/04/22: Masslike opacity in the left lower lobe measures 4.3 x 4.4 cm on series 4 image 37. There is surrounding atelectasis as well as centrilobular micronodularity. Right upper lobe nodule measures 0.6 x 0.8 cm on series 5 image 77. Sedation Anticipated: Moderate with local Anticoagulation: Lovenox, 40 mg Laboratory Data: Lab Results Component Value Date/Time HGB 10.9 (L) 08/13/2022 02:26 AM PLATELET 422 (H) 08/13/2022 02:26 AM SODIUM 140 08/13/2022 02:26 AM POTASSIUM 4.7 08/13/2022 02:26 AM GFR 85 08/13/2022 02:26 AM GFR 83 08/04/2022 05:03 PM Allergies: No Known Allergies IMPRESSION AND PLAN Sarah Merchant is a 71 y.o. 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 Plan: Request for left lung mass biopsy received. This appears amenable to biopsy with CT guidance. Will schedule as imaging suite availability permits. 1. Please make patient NPO at midnight prior to the procedure 2. Coagulation goals: Hemoglobin > 8, Platelets > 50, INR < 1.5 3. Blood pressure goal: 160s/90 or lower 4. Anticoagulation, if any not listed, will need to be held per guidelines Discussed consulted with primary team provider AUBREY Phillips at 11:12 on 08/13/22 Consult reviewed with IR Attending Dr. Henry Orr who agrees with the above plan. Aureliano Castaneda MD; 08/13/2022 9:48 AM Important Notes Procedures are performed with either moderate sedation or anesthesia services. Both require the patient to be NPO (which includes tube feeds). Patients will need to lie flat comfortably for the duration of the procedure. Please be aware that patients requiring anesthesia services will require additional coordination which may increase the time from consult to procedure. Associated Order(s): IP CONSULT TO INTERVENTIONAL PULMONOLOGY Images from the original note were not included. INTERVENTIONAL PULMONOLOGY New Consult Note Reason for Consultation: Lung mass CURRENT HOSPITALIZATION: Admit Date: 08/12/2022 [facility] Hospital LOS: 1 day History of Presenting Illness: Sarah Merchant is a 71 y.o. female with pmhx of former tobacco use disorder, hx of RA, recent dx of SCCis of the mouth, admitted post excision of lesion at the base of tongue. We are asked to schedule biopsy for a LLL mass with associated LAD. No dyspnea, no coughing, feels well overall. Review of Systems Constitutional: denies fevers/chills, night sweats Ear, nose, throat: denies sore throat, rhinorrhea Eyes: denies vision changes CV: denies chest pain, palpitations Pulm: as per HPI above GI: denies abdominal pain, nausea/vomiting, diarrhea, constipation, BRBPR : denies dysuria MSK: negative Neuro: no numbness/tingling, weakness Skin: no rash Past Medical, Surgical, Family, and Social History: Patient Active Problem List Diagnosis History of AAA (abdominal aortic aneurysm) repair Immunosuppressed status Oral cancer Past Surgical History: Procedure Laterality Date OTHER SURGICAL 2020 abdominal aortic aneurysm repair MASTECTOMY PARTIAL (LUMPECTOMY) Left OTHER SURGICAL L 2nd toe ambutated, TOTAL ABDOMINAL HYSTERECTOMY Ovaries remain Family History Problem Relation Age of Onset No known problems Mother Lung Cancer Father at 58 Cancer- Other Sister not sure of cancer Breast Cancer Sister 52 No known problems Maternal Grandmother No known problems Maternal Grandfather No known problems Paternal Grandmother No known problems Paternal Grandfather Social History Socioeconomic History Marital status: Spouse name: Not on file Number of children: Not on file Years of education: Not on file Highest education level: Not on file 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 [employer] Tobacco Use Smoking status: Former Packs/day: 0.50 Types: Cigarettes Start date: 1970 Quit date: 2013 Years since quittin.4 Smokeless tobacco: Never Vaping Use Vaping Use: Never used Substance and Sexual Activity Alcohol use: Yes Alcohol/week: 6.0 standard drinks Types: 6 Standard drinks or equivalent per week Comment: Social use Drug use: Never Sexual activity: Not on file Other Topics Concern Not on file Social History Narrative Not on file Social Determinants of Health Financial Resource Strain: Not on file Food Insecurity: Not on file Transportation Needs: Not on file Physical Activity: Not on file Stress: Not on file Social Connections: Not on file Intimate Partner Violence: Not on file Housing Stability: Not on file Allergies and Medications: Allergies: No Known Allergies Pertinent home medications: Medications Prior to Admission Medication Sig Dispense Refill Last Dose Allopurinol 300 MG tablet Take 1 tablet by mouth daily every morning. 08/12/2022 Atorvastatin 40 MG tablet Take 1 tablet by mouth at bedtime. 08/11/2022 Folic acid 1 MG tablet Take 2 tablets by mouth daily every morning. 08/12/2022 Gabapentin 100 MG capsule Take 1-3 capsules by mouth 2 times daily. Takes 100mg capsule in am and three 100mg capsules in pm 08/12/2022 Hydroxychloroquine 200 MG tablet Take 0.5-1 tablets by mouth 2 times daily. Reports taking one 200mg in am and 0.5 tab in evening 08/12/2022 leucovorin 15 MG tablet Take 1 tablet by mouth Once a week. Takes on am for follow up of methotrexate Past Week losartan 100 MG tablet Take 1 tablet by mouth daily every morning. Past Week methotrexate 2.5 MG tablet Take 4 tablets by mouth Once a week. Wednesdays- takes 4 tabs in am and 4 tabs in pm Past Week Metoprolol succinate 50 MG tablet XL Take 1 tablet by mouth daily every morning. 08/12/2022 Multiple Vitamins-Minerals (CENTRUM SILVER 50+WOMEN PO) Take 1 tablet by mouth daily every morning. 08/11/2022 POTASSIUM PO Take 1 tablet by mouth daily every morning. For leg cramps (over the counter) 08/11/2022 traMADol 50 MG tablet Take 1 tablet by mouth 3 times daily as needed. 08/04/22- rare use per patient Past Week Current Scheduled Meds: Allopurinol 300 mg Oral QAM Atorvastatin 40 mg Oral QHS chlorhexidine 15 mL Oral 4x daily Docusate 100 mg Oral BID Or docusate 100 mg Per NG tube BID enoxaparin 40 mg Subcutaneous Q24H Folic acid 2 mg Oral QAM Gabapentin 300 mg Oral Daily Hydroxychloroquine 100 mg Oral QHS Hydroxychloroquine 200 mg Oral Daily leucovorin 15 mg Oral Q7 days methotrexate 10 mg Oral Weekly methotrexate 10 mg Oral Once per day on Wed Metoprolol succinate 50 mg Oral QAM Senna 8.6 mg Oral Daily Or Senna 8.6 mg Per NG tube Daily Continuous Infusions: Lactated ringers 75 mL/hr at 08/12/22 1350 PRN Medications: Acetaminophen OR Acetaminophen OR Acetaminophen, hydrALAZINE, labetalol (NORMODYNE) IVPB, Melatonin, Ondansetron 4mg/2ml OR Ondansetron OR Ondansetron, oxyCODONE OR oxyCODONE OR oxyCODONE OR oxyCODONE OR oxyCODONE OR oxyCODONE, Polyethylene glycol OR Polyethylene glycol, Promethazine HCl OR Promethazine HCl OR Prochlorperazine, Sodium chloride 0.9% Exam and Objective Data: Temp: [97.3 F (36.3 C)-99.2 F (37.3 C)] 98.1 F (36.7 C) Pulse (Heart Rate): [75-94] 86 Resp Rate: [14-23] 16 BP: (106-140)/(55-85) 121/59 O2 Sat (%): [90 %-98 %] 93 % Weight: [66.7 kg (147 lb)] 66.7 kg (147 lb) Intake/Output Summary (Last 24 hours) at 08/13/2022 0700 Last data filed at 08/12/2022 1231 Gross per 24 hour Intake 600 ml Output -- Net 600 ml Physical Exam General: AOX3 Eyes: PERRL ENT: MMM, no LAD CV: RRR Pulm: *CTA x2 GI: Abdomen soft and non-distended, nttp, no rebound or guarding Ext: no peripheral edema Neuro: AOX3, full strength and sensation throughout Ventilation/Oxygen Therapy (24hrs): Oxygen Therapy O2 Sat (%): 93 % O2 Device: room air Flow (L/min): 1 Oxygen Delivery/Consumption Hemodynamics BSA (Calculated - sq m): 1.7 m2 Laboratory Data Lab Results Component Value Date SODIUM 140 08/13/2022 POTASSIUM 4.7 08/13/2022 CHLORIDE 104 08/13/2022 CO2 23 08/13/2022 BUN 16 08/13/2022 CREATSERUM 0.75 08/13/2022 CREATSERUM 0.76 08/04/2022 Lab Results Component Value Date WBC 11.97 (H) 08/13/2022 HGB 10.9 (L) 08/13/2022 HCT 35.0 08/13/2022 PLATELET 422 (H) 08/13/2022 No results found for: PT, INR, PTT Imaging I have personally and interpreted reviewed the radiographic data in IHIS. Assessment and Plan: Sarah Merchant is a 71 y.o. 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 We are consulted for biopsy. She is scheduled for EBUS next week 08/20/2022 at 2:45PM, this can be done as outpatient. Please obtain PET/CT for radiologic staging. ASSESSMENT # SCCis # LLL mass, new #Former tobacco use disorder #Rheumatoid arthritis RECOMMENDATIONS - EBUS scheduled 08/20 2:45PM, this will be done as outpatient -PET/CT for radiologic staging and will allow us to see other potential biopsy sites assuming this is a lung primary which it may very well be given smoking past Patient seen and discussed with Dr Liberty Barba MD PGY 7 Interventional Pulmonology Fellow [facility] Pager: [phone] Associated attestation - Liberty Escalera [facility] - 08/13/2022 4:19 PM EDT As the attending physician, I personally examined the patient independently. I reviewed all medication, labs and imaging. I also have reviewed the past medical, family, and relevant social history.I have taken a history pertinent to the patient's case. I have formulated an independent assessment and plan and discussed with the fellow. My findings are in agreement as outlined in the note by the team and I have the following annotation to add: PET scan and schedule for a tissue biopsy next week Liberty Escalera MD Supervisor [facility] Division of pulmonary, critical care and sleep medicine Department of Internal Medicine documented in this encounter [facility] 08-13-2022 History of Present illness Narrative Last 24: No acute issues overnight AF VSS Last Bowel Movement: 08/11/22 Exam: Alert, oriented, NAD Non-labored breathing, in no respiratory distress or no stridor FOM xeroform bolster in place Adequate tongue movement Laboratory and Objective Data: Temp: [97.3 F (36.3 C)-99.2 F (37.3 C)] 98.1 F (36.7 C) Pulse (Heart Rate): [75-94] 86 Resp Rate: [14-23] 16 BP: (106-140)/(55-85) 121/59 O2 Sat (%): [90 %-98 %] 93 % Weight: [66.7 kg (147 lb)] 66.7 kg (147 lb) Oxygen Therapy O2 Sat (%): 93 % O2 Device: room air Flow (L/min): 1 Fluid Management (24hrs): Intake/Output last 3 shifts: I/O last 3 completed shifts: In: 600 [I.V.:500; IV Piggyback:100] Out: - WBC/Hgb/Hct/Plts: 11.97/10.9/35.0/422 (08/13 225) Na/K+/Phos/Mg/Ca: 140/4.7/--/--/-- (08/13 225) Bun/Creat/Cl/CO2/Glucose: 16/0.75/104/23/115 (08/13 225) Assessment: POD 1 Surgeon: Samantha Diagnosis: FOM SCCis Procedure: DLE, FOM excision, bilateral sialodochoplasty Plan Airway: [place] Diet: soft diet x 2 weeks Wound (xander/sutures): bolster FOM (discharge with removal at 2 week follow up - if not tolerating can discuss removal prior to DC with Samantha) Antibiotics/Cultures: peridex x 2 weeks Labs (Ca, PTH, TSH, Free T4): per protocol Anticoagulation: Std DVT ppx PT/OT/IT NETWORK ADMINISTRATOR: PT/OT Consults: IP for pulmonary biopsy Pertinent PMHx: HTN, AAA s/p repair 2020, gout, breast cancer, RA Other: Left lower lobe mass with extension to hilum, TB rec IP biopsy Daily Plan: - IP Consult for inpatient biopsy, recommended outpatient biopsy on 08/20 Path: Dispo: pending IP biopsy Follow ups: Seim 2 weeks for bolster removal Eileen Mahajan MD Otolaryngology - Head & Neck Surgery Pager: [phone] documented in this encounter [facility] 08-13-2022 Consult note Associated Order (s): IP CONSULT TO INTERVENTIONAL PULMONOLOGY Images from the original note were not included. INTERVENTIONAL PULMONOLOGY New Consult Note Reason for Consultation: Lung mass CURRENT HOSPITALIZATION: Admit Date: 08/12/2022 [facility] Hospital LOS: 1 day History of Presenting Illness: Sarah Merchant is a 71 y.o. female with pmhx of former tobacco use disorder, hx of RA, recent dx of SCCis of the mouth, admitted post excision of lesion at the base of tongue. We are asked to schedule biopsy for a LLL mass with associated LAD. No dyspnea, no coughing, feels well overall. Review of Systems Constitutional: denies fevers/chills, night sweats Ear, nose, throat: denies sore throat, rhinorrhea Eyes: denies vision changes CV: denies chest pain, palpitations Pulm: as per HPI above GI: denies abdominal pain, nausea/vomiting, diarrhea, constipation, BRBPR : denies dysuria MSK: negative Neuro: no numbness/tingling, weakness Skin: no rash Past Medical, Surgical, Family, and Social History: Patient Active Problem List Diagnosis History of AAA (abdominal aortic aneurysm) repair Immunosuppressed status Oral cancer Past Surgical History: Procedure Laterality Date OTHER SURGICAL 2020 abdominal aortic aneurysm repair MASTECTOMY PARTIAL (LUMPECTOMY) Left OTHER SURGICAL L 2nd toe ambutated, TOTAL ABDOMINAL HYSTERECTOMY Ovaries remain Family History Problem Relation Age of Onset No known problems Mother Lung Cancer Father at 58 Cancer- Other Sister not sure of cancer Breast Cancer Sister 52 No known problems Maternal Grandmother No known problems Maternal Grandfather No known problems Paternal Grandmother No known problems Paternal Grandfather Social History Socioeconomic History Marital status: Spouse name: Not on file Number of children: Not on file Years of education: Not on file Highest education level: Not on file 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 [employer] Tobacco Use Smoking status: Former Packs/day: 0.50 Types: Cigarettes Start date: 1970 Quit date: 2012 Years since quittin.4 Smokeless tobacco: Never Vaping Use Vaping Use: Never used Substance and Sexual Activity Alcohol use: Yes Alcohol/week: 6.0 standard drinks Types: 6 Standard drinks or equivalent per week Comment: Social use Drug use: Never Sexual activity: Not on file Other Topics Concern Not on file Social History Narrative Not on file Social Determinants of Health Financial Resource Strain: Not on file Food Insecurity: Not on file Transportation Needs: Not on file Physical Activity: Not on file Stress: Not on file Social Connections: Not on file Intimate Partner Violence: Not on file Housing Stability: Not on file Allergies and Medications: Allergies: No Known Allergies Pertinent home medications: Medications Prior to Admission Medication Sig Dispense Refill Last Dose Allopurinol 300 MG tablet Take 1 tablet by mouth daily every morning. 08/12/2022 Atorvastatin 40 MG tablet Take 1 tablet by mouth at bedtime. 08/11/2022 Folic acid 1 MG tablet Take 2 tablets by mouth daily every morning. 08/12/2022 Gabapentin 100 MG capsule Take 1-3 capsules by mouth 2 times daily. Takes 100mg capsule in am and three 100mg capsules in pm 08/12/2022 Hydroxychloroquine 200 MG tablet Take 0.5-1 tablets by mouth 2 times daily. Reports taking one 200mg in am and 0.5 tab in evening 08/12/2022 leucovorin 15 MG tablet Take 1 tablet by mouth Once a week. Takes on am for follow up of methotrexate Past Week losartan 100 MG tablet Take 1 tablet by mouth daily every morning. Past Week methotrexate 2.5 MG tablet Take 4 tablets by mouth Once a week. Wednesdays- takes 4 tabs in am and 4 tabs in pm Past Week Metoprolol succinate 50 MG tablet XL Take 1 tablet by mouth daily every morning. 08/12/2022 Multiple Vitamins-Minerals (CENTRUM SILVER 50+WOMEN PO) Take 1 tablet by mouth daily every morning. 08/11/2022 POTASSIUM PO Take 1 tablet by mouth daily every morning. For leg cramps (over the counter) 08/11/2022 traMADol 50 MG tablet Take 1 tablet by mouth 3 times daily as needed. 08/04/22- rare use per patient Past Week Current Scheduled Meds: Allopurinol 300 mg Oral QAM Atorvastatin 40 mg Oral QHS chlorhexidine 15 mL Oral 4x daily Docusate 100 mg Oral BID Or docusate 100 mg Per NG tube BID enoxaparin 40 mg Subcutaneous Q24H Folic acid 2 mg Oral QAM Gabapentin 300 mg Oral Daily Hydroxychloroquine 100 mg Oral QHS Hydroxychloroquine 200 mg Oral Daily leucovorin 15 mg Oral Q7 days methotrexate 10 mg Oral Weekly methotrexate 10 mg Oral Once per day on [place] Metoprolol succinate 50 mg Oral QAM Senna 8.6 mg Oral Daily Or Senna 8.6 mg Per NG tube Daily Continuous Infusions: Lactated ringers 75 mL/hr at 08/12/22 1350 PRN Medications: Acetaminophen OR Acetaminophen OR Acetaminophen, hydrALAZINE, labetalol (NORMODYNE) IVPB, Melatonin, Ondansetron 4mg/2ml OR Ondansetron OR Ondansetron, oxyCODONE OR oxyCODONE OR oxyCODONE OR oxyCODONE OR oxyCODONE OR oxyCODONE, Polyethylene glycol OR Polyethylene glycol, Promethazine HCl OR Promethazine HCl OR Prochlorperazine, Sodium chloride 0.9% Exam and Objective Data: Temp: [97.3 F (36.3 C)-99.2 F (37.3 C)] 98.1 F (36.7 C) Pulse (Heart Rate): [75-94] 86 Resp Rate: [14-23] 16 BP: (106-140)/(55-85) 121/59 O2 Sat (%): [90 %-98 %] 93 % Weight: [66.7 kg (147 lb)] 66.7 kg (147 lb) Intake/Output Summary (Last 24 hours) at 08/13/2022 0700 Last data filed at 08/12/2022 1231 Gross per 24 hour Intake 600 ml Output -- Net 600 ml Physical Exam General: AOX3 Eyes: PERRL ENT: MMM, no LAD CV: RRR Pulm: *CTA x2 GI: Abdomen soft and non-distended, nttp, no rebound or guarding Ext: no peripheral edema Neuro: AOX3, full strength and sensation throughout Ventilation/Oxygen Therapy (24hrs): Oxygen Therapy O2 Sat (%): 93 % O2 Device: room air Flow (L/min): 1 Oxygen Delivery/Consumption Hemodynamics BSA (Calculated - sq m): 1.7 m2 Laboratory Data Lab Results Component Value Date SODIUM 140 08/13/2022 POTASSIUM 4.7 08/13/2022 CHLORIDE 104 08/13/2022 CO2 23 08/13/2022 BUN 16 08/13/2022 CREATSERUM 0.75 08/13/2022 CREATSERUM 0.76 08/04/2022 Lab Results Component Value Date WBC 11.97 (H) 08/13/2022 HGB 10.9 (L) 08/13/2022 HCT 35.0 08/13/2022 PLATELET 422 (H) 08/13/2022 No results found for: PT, INR, PTT Imaging I have personally and interpreted reviewed the radiographic data in IHIS. Assessment and Plan: Sarah Merchant is a 71 y.o. 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 We are consulted for biopsy. She is scheduled for EBUS next week 08/20/2022 at 2:45PM, this can be done as outpatient. Please obtain PET/CT for radiologic staging. ASSESSMENT # SCCis # LLL mass, new #Former tobacco use disorder #Rheumatoid arthritis RECOMMENDATIONS - EBUS scheduled 08/20 2:45PM, this will be done as outpatient -PET/CT for radiologic staging and will allow us to see other potential biopsy sites assuming this is a lung primary which it may very well be given smoking past Patient seen and discussed with Dr Liberty Barba MD PGY 7 Interventional Pulmonology Fellow [facility] Pager: [phone] Associated attestation - Liberty Escalera [facility] - 08/13/2022 4:19 PM EDT As the attending physician, I personally examined the patient independently. I reviewed all medication, labs and imaging. I also have reviewed the past medical, family, and relevant social history.I have taken a history pertinent to the patient's case. I have formulated an independent assessment and plan and discussed with the fellow. My findings are in agreement as outlined in the note by the team and I have the following annotation to add: PET scan and schedule for a tissue biopsy next week Liberty Escalera MD Supervisor [facility] Division of pulmonary, critical care and sleep medicine Department of Internal Medicine [facility] Work Phone: 08-13-2022 Note Formatting of this n ote might be different from the original. Problem: Patient Care Overview Goal: Plan of Care Review Outcome: Ongoing Goal: Individualization & Mutuality Outcome: Ongoing Goal: Discharge Needs Assessment Outcome: Ongoing Goal: Interdisciplinary Rounds/Family Conf Outcome: Ongoing [facility] 08-12-2022 Note Formatting of this n ote might be different from the original. On admission to [facility], from PACU a dual RN initial assessment of skin condition was performed by Kellie Grimm RN and Sondra MORAN. Skin Assessment: On assessment, patient has no wounds noted. 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 Clem Score: 19 LDA Added:none Kellie Grimm RN [facility] 08-12-2022 Nurse Surgical operation note 1517- Patient transported to room via gurney with side rails up x 2 with HOB at 30 degrees with Tommy CHEMIST WATER PURIFICATION. Patient's updated and provided room number per L desk. [facility] 08-12-2022 Nurse Note 1517- Patient transported to room via gurney with side rails up x 2 with HOB at 30 degrees with Tommy CHEMIST WATER PURIFICATION. Patient's updated and provided room number per SVL desk. Family notified of procedure start time at 1050 Hand-off report sent to PACU charge nurse at 1158 PACU given 15 minute notice of arrival at 1213 Patient extubated and transported to PACU with anesthesia at bedside, side rails up x2. documented in this encounter [facility] 08-12-2022 Note Formatting of this n ote is different from the original. Sarah A Mayur ([id number]) PRE OPERATIVE DIAGNOSIS Squamous cell carcinoma of floor of mouth [C04.9] POST OPERATIVE DIAGNOSIS Post-Op Diagnosis Codes: * Squamous cell carcinoma of floor of mouth [C04.9] PROCEDURE PERFORMED Procedure(s) (LRB): LARYNGOSCOPY DIRECT DIAGNOSTIC (N/A) ESOPHAGOSCOPY DIAGNOSTIC (N/A) EXCISION LESION FLOOR OF MOUTH (Left) SIALODOCHOPLASTY (Bilateral) GRAFT SKIN SPLIT THICKNESS EAR EYELID FACE MOUTH ORBIT (STSG) (Bilateral) PRIMARY CLOSURE No INTRAOPERATIVE FINDINGS Left ventral tongue/floor of mouth lesion, excised Frozen margins negative for carcinoma SURGEON Surgeon(s) and Role: * Etienne Mejía MD - Primary ANESTHESIOLOGIST Anesthesiologist: Filiberto Ames MD [employer] Assisting: Aj Miller MD SURGICAL STAFF Construction Equipment Mechanic: Joo Bell RN Relief Construction Equipment Mechanic: Yulia Barnett RN Relief Scrub: Yulia Barnett RN Scrub Person: Milagros Ballard RN; Shanique Schumacher; Dimitri Villanueva RN Resident Assisting: Joo Matias MD COMPLICATIONS None ESTIMATED BLOOD LOSS 20 mL SPECIMENS ID Type Source Tests Collected by Time Destination 1 : Left floor of mouth excision, stitch = medial Permanent SURG PATH SURG PATH REQUEST Etienne Mejía MD 08/12/2022 1139 2 : Lateral margin Frozen SURG PATH SURG PATH REQUEST Etienne Mejía MD 08/12/2022 1143 3 : Superior margin Frozen SURG PATH SURG PATH REQUEST Etienne Mejía MD 08/12/2022 1143 4 : Inferior margin Frozen SURG PATH SURG PATH REQUEST Etienne Mejía MD 08/12/2022 1143 5 : Medial margin Frozen SURG PATH SURG PATH REQUEST Etienne Mejía MD 08/12/2022 1143 6 : Deep margin Frozen SURG PATH SURG PATH REQUEST Etienne Mejía MD 08/12/2022 1144 Joo Matias MD August 12, 2022 1:02 PM [facility] 08-12-2022 Note Formatting of this n ote might be different from the original. Assessment: POD 0 Surgeon: Samantha Diagnosis: FOM SCCis Procedure: DLE, FOM excision, bilateral sialodochoplasty Plan Airway: [place] Diet: soft diet x 2 weeks Wound (xander/sutures): bolster FOM (discharge with removal at 2 week follow up - if not tolerating can discuss removal prior to DC with Samantha) Antibiotics/Cultures: peridex x 2 weeks Labs (Ca, PTH, TSH, Free T4): per protocol Anticoagulation: Std DVT ppx PT/OT/IT NETWORK ADMINISTRATOR: PT/OT Consults: IP for pulmonary biopsy Pertinent PMHx: HTN, AAA s/p repair 2020, gout, breast cancer, RA Other: Left lower lobe mass with extension to hilum, TB rec IP biopsy Daily Plan: - IP Consult for inpatient biopsy Path: Dispo: pending IP biopsy Follow ups: Seim 2 weeks for bolster removal [facility] 08-12-2022 Nurse Surgical operation note Family notified of procedure start time at 1050 Hand-off report sent to PACU charge nurse at 1158 PACU given 15 minute notice of arrival at 1213 Patient extubated and transported to PACU with anesthesia at bedside, side rails up x2. [facility] 08-12-2022 Note Formatting of this n ote might be different from the original. Pt denies history of chemo and radiation. Pt denies metal or foreign objects in body. Denies history of seizures. [facility] Note Formatting of this n ote is different from the original. Operative Report DATE OF SERVICE: 08/12/2022 PATIENT: Sarah Merchant PREOPERATIVE DIAGNOSIS: 1. Remote smoking history 2. Rheumatoid arthritis 3. 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 Left lung mass of unknown etiology POSTOPERATIVE DIAGNOSIS: 1. Remote smoking history 2. Rheumatoid arthritis 3. 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 Left lung mass of unknown etiology PROCEDURE: 1. Direct Laryngoscopy 2. Esophagoscopy 3. Floor of mouth excision 4. Left sialodochoplasty 5. Full thickness skin graft harvest (right posterior auricular) and inset for floor of mouth reconstruction, 2 x 1.5 cm SURGEON: Etienne Mejía MD AVIATION MECHANIC: Joo Matias MD ANESTHESIA: General endotracheal. ESTIMATED BLOOD LOSS: 20 mL. COMPLICATIONS: None CONDITION: Stable to PACU. INTRAOPERATIVE FINDINGS: 1. Left ventral tongue/floor of mouth lesion, excised 2. Frozen margins negative for carcinoma SPECIMEN: ID Type Source Tests Collected by Time Destination 1 : Left floor of mouth excision, stitch = medial Permanent SURG PATH SURG PATH REQUEST Etienne Mejía MD 08/12/2022 1139 2 : Lateral margin Frozen SURG PATH SURG PATH REQUEST Etienne Mejía MD 08/12/2022 1143 3 : Superior margin Frozen SURG PATH SURG PATH REQUEST Etienne Mejía MD 08/12/2022 1143 4 : Inferior margin Frozen SURG PATH SURG PATH REQUEST Etienne Mejía MD 08/12/2022 1143 5 : Medial margin Frozen SURG PATH SURG PATH REQUEST Etienne Mejía MD 08/12/2022 1143 6 : Deep margin Frozen SURG PATH SURG PATH REQUEST Etienne Mejía MD 08/12/2022 1144 INDICATIONS AND CONSENT: Sarah Merchant is a 71 y.o. who presented to the Otolaryngology clinic with newly diagnosed midline/left floor of mouth squamous cell carcinoma in situ. On work-up there was a left lung mass identified. The case was reviewed at tumor board and given the unlikely source as the oral cavity, recommended plan was for excision followed by admission for expedite lung mass work up. They were therefore offered the aforementioned procedures. The procedure, risks, benefits, alternatives, potential complications, possible outcomes as well as the option of no treatment were reviewed with the patient who indicated they understood and wished to proceed forward with the procedure. Informed consent was obtained. DESCRIPTION OF PROCEDURE: On 08/12/2022, the patient was identified in the preoperative area, consent confirmed, and transported to the operating suite. They were then transferred to the operating room table and placed in a supine position. After induction of general endotracheal anesthesia, the bed was rotated 180 degrees and a proper surgeon initiated time out was performed. Our incisions were marked and then infiltrated with 1% lidocaine with 1:100,000 epinephrine. A maxillary tooth guard was placed to protect the upper dentition. The dedo laryngoscope was then carefully inserted into the oral cavity and sequential used to examine the oral cavity, oropharynx, hypopharynx and larynx. Examination revealed known left floor of mouth/ventral tongue lesion involving the left Jessy's ducts, 13 mm x 15 mm. Lesion was superficial with appearance of erythroplakia. No other lesions noted. The laryngoscope was then removed under direct visualization without injury to the surrounding structures. We then proceeded with a flexible esophagoscopy. The esophagoscope was advanced through the upper esophageal inlet and advanced distally into the stomach. The scope was slowly withdrawn taking care to examine the length of the esophagus. The esophagus was examined and noted to be free of any lesions or masses. There was no stigmata of perforation. The esophagoscope was then removed without injury to the surrounding structures and the tooth guard removed. The patient was prepped and draped in sterile fashion. Next, we proceeded with harvest of a right posterior auricular full thickness skin graft, 2 cm x 1.5 cm. An ellipse incision was planned along skin tension lines. The skin was excised to the dermal plane. Maintaining this plane, the skin graft was released and set aside for later reconstruction. The dermis was removed to the subcutaneous tissues. We proceeded with undermining for wound closure. Hemostasis was obtained at the donor site and closed with 4-0 Vicryl for dermal closure followed by 5-0 Fast gut for skin closure. Next, we turned out attention to resection of the floor of mouth lesion. A 0.5 mm - 1 cm margin was marked around the lesion. The right Mcnary's duct was not involved in the resection. The right duct was probed and was patent, with saliva expressed with palpation of the submandibular gland. The left Jessy's duct was probed with a salivary probe. Using electrocautery, the mucosa was excised down to the muscle. Taking care to keep a deep margin and taking a small amount of muscle and sublingual salivary gland. The lesion was excised and removed, keeping the salivary probe in place and the duct divided as final release. The specimen was examined and noted to have complete excision. Circumferential and deep margins were sent for frozen pathology and was negative for carcinoma. Hemostasis was achieved. Next, we proceeded with sialodochoplasty. The duct was incised and sutured to the surrounding floor of mouth mucosa and wound bed, suturing the duct open with 5-0 chromic. Palpation of the submandibular gland had return of saliva. Next, the previously harvested skin graft was laid on the wound bed and sutured to the tongue/floor of mouth mucosa, taking care not to injur either duct. This was secured with 4-0 vicryl and chromic. A xeroform bolstered was sutured in place overlying the skin graft using 2-0 silk. We ensured the bolster was well secured. The oral cavity was irrigated and hemostasis confirmed. This concluded our procedure. The patient tolerated the procedure well without any operative complications. All counts were correct x2. The patient was rotated back to their original position, gently awakened from general anesthesia and taken to the PACU in stable condition. Dr. Mejía was present and participated through the entirety of the procedure. Associated attestation - Etienne Mejía MD - 08/12/2022 1:51 PM EDT ATTENDING PHYSICIAN ATTESTATION: I was physically present and actively involved throughout the entirety of this procedure as stated below. Etienne Mejía MD Otolaryngology-Head and Neck Surgery [facility] 08-12-2022 History and physical note PERIOPERATIVE SURGICAL HISTORY AND PHYSICAL UPDATE Pre-op Diagnoses: Squamous cell carcinoma of floor of mouth [C04.9] Procedure(s): LARYNGOSCOPY DIRECT DIAGNOSTIC ESOPHAGOSCOPY DIAGNOSTIC EXCISION LESION FLOOR OF MOUTH SIALODOCHOPLASTY GRAFT SKIN SPLIT THICKNESS EAR EYELID FACE MOUTH ORBIT (STSG) Surgeon(s): Surgeon(s) and Role: * Etienne Mejía MD - Primary History and Physical Update: There were no vitals taken for this visit. I have reviewed Sarah Merchant's medical, surgical and other pertinent history, and I have updated the medication and allergy information in the computerized patient record. I have examined the patient, reviewed the previous H&P completed on date (07/21/22) and there are no changes. Today's surgical history and physical update was completed by Joo Matias MD, 08/12/2022, 7:07 AM. [facility] 08-12-2022 History and physical note PERIOPERATIVE SURGICAL HISTORY AND PHYSICAL UPDATE Pre-op Diagnoses: Squamous cell carcinoma of floor of mouth [C04.9] Procedure(s): LARYNGOSCOPY DIRECT DIAGNOSTIC ESOPHAGOSCOPY DIAGNOSTIC EXCISION LESION FLOOR OF MOUTH SIALODOCHOPLASTY GRAFT SKIN SPLIT THICKNESS EAR EYELID FACE MOUTH ORBIT (STSG) Surgeon(s): Surgeon(s) and Role: * Etienne Mejía MD - Primary History and Physical Update: There were no vitals taken for this visit. I have reviewed Sarah Merchant's medical, surgical and other pertinent history, and I have updated the medication and allergy information in the computerized patient record. I have examined the patient, reviewed the previous H&P completed on date (07/21/22) and there are no changes. Today's surgical history and physical update was completed by Joo Matias MD, 08/12/2022, 7:07 AM. documented in this encounter [facility] 08-05-2022 Note Request received for second opinion consultation by Shante Garcia PA-C. Please review outside slides for SCC of floor of mouth. Preoperative Diagnosis: Swelling and pain. [facility] Oral cancer- Primary Malignant neoplasm of mouth, unspecified site Squamous cell carcinoma of floor of mouth Malignant neoplasm of floor of mouth, part unspecified Oral cancer Malignant neoplasm of mouth, unspecified site [facility] Diagnosis Mass of left lung Squamous cell carcinoma of floor of mouth Malignant neoplasm of floor of mouth, part unspecified Non-small cell cancer of left lung [facility] Diagnosis 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- Primary [facility] Diagnosis Mass of left lung Squamous cell carcinoma of floor of mouth Malignant neoplasm of floor of mouth, part unspecified [facility] Diagnosis Head and neck cancer- Primary Malignant neoplasm of head, face, and neck [facility] Diagnostic Procedure Only (Routine) - Authorized Specialty Diagnoses / Procedures Referred By Ashley salinas Referred To Contact [facility] Diagnoses 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 receptor positive status (ER+) Personal history of malignant neoplasm of breast Procedures SERA SCREENING SCREENING MAMMOGRAPHY BI 2-VIEW BREAST INC Roxanne Carmona MD [address] [place] [address] [place] [address] [facility] [address] [place] [address] Referral ID Status Reason Start Date Expiration Date Visits Requested Visits Authorized [id number] Authorized Auto-Generat ed Referral 05/01/2023 06/03/2023 1 1 [facility] Summary Purpose Family History No Family History Records FoundNo Family History Records FoundNo Family History Records FoundNo Family History Records FoundNo Family History Records Found Advance Directives No Advanced Directives Records FoundLatest Code Status on File Code Status Date Activated Date Inactivated Comments Full Code 08/12/2022 7:38 AM Documents on File Type Date Recorded 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 Advance Directives/Living Will 08/24/2022 Documents on File Type Date Recorded 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 Advance Directives/Living Will 08/24/2022 Latest Code Status on File Code Status Date Activated Date Inactivated Comments Full Code 08/12/2022 7:38 AM Reason for Referral Specialty Diagnoses / Procedures Referred By Contac t Referred To Contact Procedures NUC PET HEAD/NECK CA CHG NUC THERAPY HYPERTHYROID SUBSEQUENT Payton Elder, PAC [address] [place] [address] Referral ID Status Reason Start Date Expiration Date V isits Requested Visits Authorized [id number] New Request 08/12/2022 09/06/2023 1 1 Specialty Diagnoses / Procedures Referred By Contac t Referred To Contact Procedures PLATELET MONITORING PER PROTOCOL Etienne Mejía MD [address] [place] [address] Referral ID Status Reason Start Date Expiration Date V isits Requested Visits Authorized [id number] New Request 08/12/2022 09/06/2023 1 1 Specialty Diagnoses / Procedures Referred By Contac t Referred To Contact Procedures DVT/VTE RISK ASSESSMENT Etienne Mejía MD [address] [place] [address] Referral ID Status Reason Start Date Expiration Date V isits Requested Visits Authorized [id number] New Request 08/12/2022 09/06/2023 1 1 Referral ID Status Reason Start Date Expiration Date V isits Requested Visits Authorized [id number] New Request 08/12/2022 09/06/2023 1 1 Specialty Diagnoses / Procedures Referred By Contac t Referred To Contact Diagnoses Non-small cell cancer of left lung Procedures MRI BRAIN WITH AND WITHOUT CONTRAST SD MRI BRAIN COMBO Jaelyn Yen, CIVIL ENGINEER'S AIDE-DATABASE DEVELOPER [address] [place] [address] Referral ID Status Reason Start Date Expiration Date V isits Requested Visits Authorized [id number] New Request 09/01/2022 09/26/2023 1 1 Specialty Diagnoses / Procedures Referred By Contac t Referred To Contact Diagnoses Mass of left lung Squamous cell carcinoma of floor of mouth Procedures NUC PET LUNG CA (NSCLC) CHG NUC THERAPY HYPERTHYROID SUBSEQUENT Yaz Anderson Emilia, PAC [address] [place] [address] Referral ID Status Reason Start Date Expiration Date Visits Re quested Visits Authorized [id number] Closed 08/24/2022 09/18/2023 1 1 Additional Source Comments INFORMATION SOURCE (unrecogn ized section and content) DATE CREATED AUTHOR AUTHOR'S ORGANIZ ATION 06/24/2019 [facility] DATE CREATED AUTHOR AUTHOR'S ORGANIZ ATION 05/05/2021 [facility] [place] DATE CREATED AUTHOR AUTHOR'S ORGANIZ ATION 05/08/2022 [facility] DATE CREATED AUTHOR AUTHOR'S ORGANIZ ATION 04/08/2023 [facility] Source Comments (unrecognize d section and content) In the event this informatio n is protected by the Federal Confidentiality of Alcohol and Drug Abuse Patient Records regulations: The Federal rules restrict any use of the information to criminally investigate or prosecute any alcohol or drug abuse patient.[facility] the event this information is protected by the Federal Confidentiality of Alcohol and Drug Abuse Patient Records regulations: The Federal rules restrict any use of the information to criminally investigate or prosecute any alcohol or drug abuse patient.[facility] Care Teams (unrecognized sec tion and content) Clinical Dietetic Technician Relationship Specialty Start Date End Date Walter Akers Chi PCP - General Gerontology 11/06/16 Clinical Dietetic Technician Relationship Specialty Start Date End Date Sharlene Akers MD [address] [place] [phone] PCP - General Internal Medicine 07/21/22 Ck Mccormick MB/DEMETRICE [address] [place] [address] Oncologist Hematology 07/17/22 Danita Millan, RN Registered Nurse 07/17/22 Bertin Valentin MD [address] [place] [address] Cardiovascular Disease 08/04/22 Clinical Dietetic Technician Relationship Specialty Start Date End Date Sharlene Akers MD [address] [place] [address] PCP - General Internal Medicine 07/21/22 Ck Mccormick MB/DEMETRICE [address] [place] [address] Oncologist Hematology 07/17/22 Danita Millan, RN Registered Nurse 07/17/22 Bertin Valentin MD [address] [place] [address] Cardiovascular Disease 08/04/22 Clinical Dietetic Technician Relationship Specialty Start Date End Date Sharlene Akers MD [address] [place] [phone] PCP - General Internal Medicine 07/21/22 Ck Mccormick MB/DEMETRICE [address] [place] [address] Oncologist Hematology 07/17/22 Danita Millan, RN Registered Nurse 07/17/22 Bertin Valentin MD [address] [place] [address] Cardiovascular Disease 08/04/22 Clinical Dietetic Technician Relationship Specialty Start Date End Date Sharlene Akers MD [address] [place] [address] PCP - General Internal Medicine 07/21/22 Ck Mccormick MB/DEMETRICE [address] [place] [address] Oncologist Hematology 07/17/22 Danita Millan, RN Registered Nurse 07/17/22 Bertin Valentin MD [address] [place] [address] Cardiovascular Disease 08/04/22 Clinical Dietetic Technician Relationship Specialty Start Date End Date Sharlene Akers MD [address] [place] [address] PCP - General Internal Medicine 07/21/22 Ck Mccormick MB/DEMETRICE [address] [place] [address] Oncologist Hematology 07/17/22 Danita Millan, RN Registered Nurse 07/17/22 Bertin Valentin MD [address] [place] [phone] Cardiovascular Disease 08/04/22 Reason for Visit (unrecogniz ed section and content) Specialty Diagnoses / Procedures Referred By Ashley salinas Referred To Contact Diagnoses 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] Procedures SD LARYNGOSCOPY,DIRECT,DIAGNOSTI C SD ESOPHAGOSCOPY FLEXIBLE TRANSORAL DIAGNOSTIC SD EXCIS FLOOR MOUTH LESION SD REPAIR SALIVARY DUCT SIMPLE SD SPLIT GRFT,HEAD,FAC,HAND,FEET <100SQCM LARYNGOSCOPY DIRECT DIAGNOSTIC ESOPHAGOSCOPY DIAGNOSTIC EXCISION LESION FLOOR OF MOUTH SIALODOCHOPLASTY GRAFT SKIN SPLIT THICKNESS EAR EYELID FACE MOUTH ORBIT (STSG) Etienne Mejía MD [address] [place] [address] [facility] [address] [place] [address] Referral ID Status Reason Start Date Expiration Date Visits Re quested Visits Authorized [id number] 1 1 Reason Comments New Patient WATER TAXI CAPTAIN cough; recent kairn jaya in July for excision of mouth lesion Specialty Diagnoses / Procedures Referred By Ashley salinas Referred To Contact Thoracic Surgery Diagnoses Mass of left lung Squamous cell carcinoma of floor of mouth Yaz Anderson, PAC [address] [place] [address] Referral ID Status Reason Start Date Expiration Date V isits Requested Visits Authorized [id number] New Request 08/24/2022 09/18/2023 1 1 Reason Comments Follow-up Specialty Diagnoses / Procedures Referred By Ashley salinas Referred To Contact Diagnoses Mass of left lung Squamous cell carcinoma of floor of mouth Procedures NUC PET LUNG CA (NSCLC) CHG NUC THERAPY HYPERTHYROID SUBSEQUENT Yaz Anderson, PAC [address] [place] [address] Referral ID Status Reason Start Date Expiration Date Visits Re quested Visits Authorized [id number] Closed 08/24/2022 09/18/2023 1 1 Scheduled Active and Recently Administ ered Medications (unrecognized section and content) Continuous Medication Order 08/11/2022 08/12/2022 08/13/2022 Lactated ringers IV solution (CANCELED) Intravenous, at 50 mL/hr, CONTINUOUS, Starting on Wed08/12/22 at 0745, Until Wed08/12/22 at 1525, Pre-op/Pre-Proc 0807 ($$New Bag$$ - Provider: Isamar Mukherjee RN) Lactated ringers IV solution (CANCELED) Intravenous, at 75 mL/hr, CONTINUOUS, Starting on Wed08/12/22 at 1315, Until Viktoria 08/13/22 at 0852, Please discontinue once tolerating adequate PO, Post-op/Post-Proc 1350 ($$New Bag$$ - Provider: Radha Tripathi RN)1509 (Paused - Provider: Kristy Moreno RN)1517 (Restarted - Provider: Kristy Moreno RN)1525 (Paused - Provider: Kristy Moreno RN)1535 (Paused - Provider: Kristy Moreno RN)1535 (Restarted - Provider: Kristy Moreno RN)1938 (Paused - Provider: Kristy Moreno RN)1940 (Restarted - Provider: Kristy Moreno RN) 0241 (Rate/Dose Verify - Provider: Kristy Moreno RN)0415 (Paused - Provider: Kristy Moreno RN)0418 (Restarted - Provider: Kristy Moreno RN)[id number] (Paused - Provider: Kristy Moreno RN)0420 (Restarted - Provider: Kristy Moreno RN)0505 (Paused - Provider: Kristy Moreno RN)0515 (Restarted - Provider: Kristy Moreno RN)0557 (Paused - Provider: Kristy Moreno RN)0558 (Restarted - Provider: Kristy Moreno RN)1057 (Stopped - Provider: Kristy Moreno RN) PRN Medication Order 08/11/2022 08/12/2022 08/13/2022 Acetaminophen (TYLENOL) oral solution 650 mg(Linked Group 3) 650 mg, Per NG tube, EVERY 4 HOURS NEEDED, Starting on Wed08/12/22 at 1533, Until Viktoria 08/13/22 at 1833, Mild Pain, Oral temp > 100.4 F, Maximum dose of acetaminophen is 4000 mg from all sources in 24 hours., Post-op/Post-Proc Acetaminophen (TYLENOL) suppository 650 mg(Linked Group 3) 650 mg, Rectal, EVERY 4 HOURS NEEDED, Starting on Wed08/12/22 at 1533, Until Viktoria 08/13/22 at 1833, Oral temp > 100.4 F, Mild Pain, Maximum dose of acetaminophen is 4000 mg from all sources in 24 hours., Post-op/Post-Proc Acetaminophen (TYLENOL) tablet 650 mg(Linked Group 3) 650 mg, Oral, EVERY 4 HOURS NEEDED, Starting on Wed08/12/22 at 1533, Until Viktoria 08/13/22 at 1833, Mild Pain, Oral temp > 100.4 F, Maximum dose of acetaminophen is 4000 mg from all sources in 24 hours., Post-op/Post-Proc bacitracin-polymyxin b (POLYSPORIN) [id number] UNIT/GM ointment (CANCELED) NEEDED, Starting on Wed08/12/22 at 1229, Until Wed08/12/22 at 1247, Intra-op/Intra-Proc 1229 (Given - Provider: Etienne Mejía MD) hydrALAZINE (APRESOLINE) injection 10 mg 10 mg, Intravenous, EVERY 6 HOURS NEEDED, Starting on Wed08/12/22 at 1533, Until Viktoria 08/13/22 at 1833, SBP > 160 mmHg with HR <60 bpm, Post-op/Post-Proc labetalol (NORMODYNE) 10 mg in Sodium chloride 0.9%, with overfill 62 mL (total volume) IVPB 10 mg, Intravenous, at 248 mL/hr, Administer over 15 Minutes, EVERY 6 HOURS NEEDED, Starting on Wed08/12/22 at 1533, Until Viktoria 08/13/22 at 1833, SBP > 160 mmHg with HR >60 bpm, Hold for HR < 60 BPM., Post-op/Post-Proc Lidocaine-epinephrine 1%-1:819206 injection (CANCELED) NEEDED, Starting on Wed08/12/22 at 1056, Until Wed08/12/22 at 1247, Intra-op/Intra-Proc 1056 (Given - Provider: Etienne Mejía MD) Melatonin tablet 6 mg 6 mg, Oral, DAILY AT BEDTIME NEEDED, Starting on Wed08/12/22 at 1533, Until Viktoria 08/13/22 at 1833, Insomnia, Post-op/Post-Proc Ondansetron (ZOFRAN) tablet 4 mg(Linked Group 4) 4 mg, Oral, EVERY 6 HOURS NEEDED, Starting on Wed08/12/22 at 1533, Until Viktoria 08/13/22 at 1833, Nausea / Vomiting, 1st line, Post-op/Post-Proc Ondansetron (ZOFRAN) tablet 4 mg(Linked Group 4) 4 mg, Per NG tube, EVERY 6 HOURS NEEDED, Starting on Wed08/12/22 at 1533, Until Viktoria 08/13/22 at 1833, Nausea / Vomiting, 1st line, Post-op/Post-Proc Ondansetron 4mg/2ml (ZOFRAN) injection 4 mg(Linked Group 4) 4 mg, Intravenous, EVERY 6 HOURS NEEDED, Starting on Wed08/12/22 at 1533, Until Viktoria 08/13/22 at 1833, Nausea / Vomiting, 1st line, Post-op/Post-Proc oxyCODONE (ROXICODONE) oral solution 10 mg(Linked Group 5) 10 mg, Oral, EVERY 4 HOURS NEEDED, Starting on Wed08/12/22 at 1533, Until Viktoria 08/13/22 at 1833, Moderate Pain, Higher dose may be administered if lower dose was previously documented as ineffective and did not result in adverse effects (RR<10, decrease in level of consciousness). Decrease back to lower dose if patient has adverse effects, or no PRN used in previous 12 hours., Post-op/Post-Proc 1607 (See Alternative - Provider: Kellie Grimm RN)2019 (See Alternative - Provider: Jer Cuevas RN) 0034 (See Alternative - Provider: Jer Cuevas RN)0703 (See Alternative - Provider: Jer Cuevas RN) oxyCODONE (ROXICODONE) oral solution 10 mg(Linked Group 5) 10 mg, Per NG tube, EVERY 4 HOURS NEEDED, Starting on Wed08/12/22 at 1533, Until Viktoria 08/13/22 at 1833, Moderate Pain, Higher dose may be administered if lower dose was previously documented as ineffective and did not result in adverse effects (RR<10, decrease in level of consciousness). Decrease back to lower dose if patient has adverse effects, or no PRN used in previous 12 hours., Post-op/Post-Proc 1607 (See Alternative - Provider: Kellie Grimm RN)2018 (See Alternative - Provider: Jer Cuevas RN) 33 (See Alternative - Provider: Jer Cuevas RN)0703 (See Alternative - Provider: Jer Cuevas RN) oxyCODONE (ROXICODONE) oral solution 5 mg(Linked Group 5) 5 mg, Oral, EVERY 4 HOURS NEEDED, Starting on Wed08/12/22 at 1533, Until Viktoria 08/13/22 at 1833, Moderate Pain, Use as initial dose. Higher dose may be administered if lower dose was previously documented as ineffective and did not result in adverse effects (RR<10, decrease in level of consciousness)., Post-op/Post-Proc 160 (See Alternative - Provider: Kellie Grimm RN)2018 (See Alternative - Provider: Jer Cuevas RN) 33 (See Alternative - Provider: Jer Cuevas RN)0703 (See Alternative - Provider: Jer Cuevas RN) oxyCODONE (ROXICODONE) oral solution 5 mg(Linked Group 5) 5 mg, Per NG tube, EVERY 4 HOURS NEEDED, Starting on Wed08/12/22 at 1533, Until Viktoria 6 at 1833, Moderate Pain, Use as initial dose. Higher dose may be administered if lower dose was previously documented as ineffective and did not result in adverse effects (RR<10, decrease in level of consciousness)., Post-op/Post-Proc 160 (See Alternative - Provider: Kellie Grimm RN)2018 (See Alternative - Provider: Jer Cuevas RN) 003 (See Alternative - Provider: Jer Cuevas RN)0703 (See Alternative - Provider: Jer Cuevas RN) oxyCODONE (ROXICODONE) tablet 5 mg(Linked Group 5) 5 mg, Oral, EVERY 4 HOURS NEEDED, Starting on Wed08/12/22 at 1533, Until Viktoria 08/13/22 at 1833, Moderate Pain, Use as initial dose. Higher dose may be administered if lower dose was previously documented as ineffective and did not result in adverse effects (RR<10, decrease in level of consciousness)., Post-op/Post-Proc 1607 (Given - Provider: Kellie Grimm RN)2018 (Given - Provider: Jer Cuevas RN) 33 (Given - Provider: Jer Cuevas, RN)0703 (Given - Provider: Jer Cuevas RN) oxyCODONE HCl (ROXICODONE) tablet 10 mg(Linked Group 5) 10 mg, Oral, EVERY 4 HOURS NEEDED, Starting on Wed08/12/22 at 1533, Until Viktoria 08/13/22 at 1833, Moderate Pain, Higher dose may be administered if lower dose was previously documented as ineffective and did not result in adverse effects (RR<10, decrease in level of consciousness). Decrease back to lower dose if patient has adverse effects, or no PRN used in previous 12 hours., Post-op/Post-Proc 1607 (See Alternative - Provider: Kellie Grimm RN)2018 (See Alternative - Provider: Jer Cuevas RN) 33 (See Alternative - Provider: Jer Cuevas RN)0703 (See Alternative - Provider: Jer Cuevas RN) Polyethylene glycol (MIRALAX) packet 17 g(Linked Group 6) 17 g, Oral, DAILY NEEDED, Starting on Wed08/12/22 at 1533, Until Viktoria 08/13/22 at 1833, Constipation If No Bowel Movement in 48 Hours, Post-op/Post-Proc Polyethylene glycol (MIRALAX) packet 17 g(Linked Group 6) 17 g, Per NG tube, DAILY NEEDED, Starting on Wed08/12/22 at 1533, Until Viktoria 08/13/22 at 1833, Constipation If No Bowel Movement in 48 Hours, Post-op/Post-Proc Prochlorperazine (COMPAZINE) injection 10 mg(Linked Group 7) 10 mg, Intravenous, EVERY 6 HOURS NEEDED, Starting on Wed08/12/22 at 1533, Until Viktoria 08/13/22 at 1833, Refractory Nausea Vomiting, 2nd Line, For IV route: dilute dose with 10mL normal saline and give by slow IV push at a rate of 5mg/min. Maximum of 40mg/day., Post-op/Post-Proc Promethazine HCl (PHENERGAN) tablet 12.5 mg(Linked Group 7) 12.5 mg, Oral, EVERY 6 HOURS NEEDED, Starting on Wed08/12/22 at 1533, Until Viktoria 08/13/22 at 1833, Nausea / Vomiting, 2nd line, Post-op/Post-Proc Promethazine HCl (PHENERGAN) tablet 12.5 mg(Linked Group 7) 12.5 mg, Per NG tube, EVERY 6 HOURS NEEDED, Starting on Wed08/12/22 at 1533, Until Viktoria 08/13/22 at 1833, Nausea / Vomiting, 2nd line, Post-op/Post-Proc Sodium chloride 0.9 % irrigation (CANCELED) NEEDED, Starting on Wed08/12/22 at 1230, Until Wed08/12/22 at 1247, Intra-op/Intra-Proc 1230 (Given - Provider: Etienne Mejía MD) Sodium chloride 0.9% IV solution 250 mL Intravenous, at 20 mL/hr, NEEDED, Starting on Wed08/12/22 at 1533, Until Viktoria 08/13/22 at 1833, Carrier Fluid - See Admin. Inst, 250mL 0.9NS to be used as carrier fluid for intermittent small volume or piggyback medication administration as needed. Infusion rate of the carrier fluid should be set at 20 mL/hr unless the rate as the intermittent medication is less than 20 mL/hr. For intermittent medications with a rate less than 20 mL/hr set the carrier fluid at that rate of the intermittent or piggy back medication., Post-op/Post-Proc Linked Groups Order Group 1: Docusate (COLACE) capsule 100 mgJump to med 100 mg, Oral, 2 TIMES DAILY, First dose on Wed08/12/22 at 1700, Until Discontinued
Hold for diarrhea or 2 stools in one day.
Post-op/Post-Proc Or docusate (COLACE) oral liquid 100 mgJump to med 100 mg, Per NG tube, 2 TIMES DAILY, First dose on Wed08/12/22 at 1700, Until Discontinued
Hold for diarrhea or 2 stools in one day.
Post-op/Post-Proc Group 2: Senna (SENOKOT) tablet 8.6 mgJump to med 8.6 mg, Oral, DAILY, First dose on Wed08/13/22 at 0900, Until Discontinued, Post-op/Post-Proc Or Senna (SENOKOT) tablet 8.6 mgJump to med 8.6 mg, Per NG tube, DAILY, First dose on Wed08/13/22 at 0900, Until Discontinued, Post-op/Post-Proc Group 3: Acetaminophen (TYLENOL) tablet 650 mgJump to med 650 mg, Oral, EVERY 4 HOURS NEEDED, Starting on Wed08/12/22 at 1533, Until Wed08/13/22 at 1833, Mild Pain, Oral temp > 100.4 F
Maximum dose of acetaminophen is 4000 mg from all sources in 24 hours.
Post-op/Post-Proc Or Acetaminophen (TYLENOL) oral solution 650 mgJump to med 650 mg, Per NG tube, EVERY 4 HOURS NEEDED, Starting on Wed08/12/22 at 1533, Until Viktoria 08/13/22 at 1833, Mild Pain, Oral temp > 100.4 F
Maximum dose of acetaminophen is 4000 mg from all sources in 24 hours.
Post-op/Post-Proc Or Acetaminophen (TYLENOL) suppository 650 mgJump to med 650 mg, Rectal, EVERY 4 HOURS NEEDED, Starting on Wed08/12/22 at 1533, Until Viktoria 08/13/22 at 1833, Oral temp > 100.4 F, Mild Pain
Maximum dose of acetaminophen is 4000 mg from all sources in 24 hours.
Post-op/Post-Proc Group 4: Ondansetron 4mg/2ml (ZOFRAN) injection 4 mgJump to med 4 mg, Intravenous, EVERY 6 HOURS NEEDED, Starting on Wed08/12/22 at 1533, Until Wed08/13/22 at 1833, Nausea / Vomiting, 1st line, Post-op/Post-Proc Or Ondansetron (ZOFRAN) tablet 4 mgJump to med 4 mg, Oral, EVERY 6 HOURS NEEDED, Starting on Wed08/12/22 at 1533, Until Wed08/13/22 at 1833, Nausea / Vomiting, 1st line, Post-op/Post-Proc Or Ondansetron (ZOFRAN) tablet 4 mgJump to med 4 mg, Per NG tube, EVERY 6 HOURS NEEDED, Starting on Wed08/12/22 at 1533, Until Viktoria 08/13/22 at 1833, Nausea / Vomiting, 1st line, Post-op/Post-Proc Group 5: oxyCODONE (ROXICODONE) tablet 5 mgJump to med 5 mg, Oral, EVERY 4 HOURS NEEDED, Starting on Wed08/12/22 at 1533, Until Viktoria 08/13/22 at 1833, Moderate Pain
Use as initial dose. Higher dose may be administered if lower dose was previously documented as ineffective and did not result in adverse effects (RR<10, decrease in level of consciousness).
Post-op/Post-Proc Or oxyCODONE (ROXICODONE) oral solution 5 mgJump to med 5 mg, Oral, EVERY 4 HOURS NEEDED, Starting on Wed08/12/22 at 1533, Until Viktoria 08/13/22 at 1833, Moderate Pain
Use as initial dose. Higher dose may be administered if lower dose was previously documented as ineffective and did not result in adverse effects (RR<10, decrease in level of consciousness).
Post-op/Post-Proc Or oxyCODONE (ROXICODONE) oral solution 5 mgJump to med 5 mg, Per NG tube, EVERY 4 HOURS NEEDED, Starting on Wed08/12/22 at 1533, Until Viktoria 08/13/22 at 1833, Moderate Pain
Use as initial dose. Higher dose may be administered if lower dose was previously documented as ineffective and did not result in adverse effects (RR<10, decrease in level of consciousness).
Post-op/Post-Proc Or oxyCODONE HCl (ROXICODONE) tablet 10 mgJump to med 10 mg, Oral, EVERY 4 HOURS NEEDED, Starting on Wed08/12/22 at 1533, Until Viktoria 08/13/22 at 1833, Moderate Pain
Higher dose may be administered if lower dose was previously documented as ineffective and did not result in adverse effects (RR<10, decrease in level of consciousness). Decrease back to lower dose if patient has adverse effects, or no PRN used in previous 12 hours.
Post-op/Post-Proc Or oxyCODONE (ROXICODONE) oral solution 10 mgJump to med 10 mg, Oral, EVERY 4 HOURS NEEDED, Starting on Wed08/12/22 at 1533, Until Viktoria 08/13/22 at 1833, Moderate Pain
Higher dose may be administered if lower dose was previously documented as ineffective and did not result in adverse effects (RR<10, decrease in level of consciousness). Decrease back to lower dose if patient has adverse effects, or no PRN used in previous 12 hours.
Post-op/Post-Proc Or oxyCODONE (ROXICODONE) oral solution 10 mgJump to med 10 mg, Per NG tube, EVERY 4 HOURS NEEDED, Starting on Wed08/12/22 at 1533, Until Viktoria 08/13/22 at 1833, Moderate Pain
Higher dose may be administered if lower dose was previously documented as ineffective and did not result in adverse effects (RR<10, decrease in level of consciousness). Decrease back to lower dose if patient has adverse effects, or no PRN used in previous 12 hours.
Post-op/Post-Proc Group 6: Polyethylene glycol (MIRALAX) packet 17 gJump to med 17 g, Oral, DAILY NEEDED, Starting on Wed08/12/22 at 1533, Until Viktoria 08/13/22 at 1833, Constipation If No Bowel Movement in 48 Hours, Post-op/Post-Proc Or Polyethylene glycol (MIRALAX) packet 17 gJump to med 17 g, Per NG tube, DAILY NEEDED, Starting on Wed08/12/22 at 1533, Until Viktoria 08/13/22 at 1833, Constipation If No Bowel Movement in 48 Hours, Post-op/Post-Proc Group 7: Promethazine HCl (PHENERGAN) tablet 12.5 mgJump to med 12.5 mg, Oral, EVERY 6 HOURS NEEDED, Starting on Wed08/12/22 at 1533, Until Viktoria 08/13/22 at 1833, Nausea / Vomiting, 2nd line, Post-op/Post-Proc Or Promethazine HCl (PHENERGAN) tablet 12.5 mgJump to med 12.5 mg, Per NG tube, EVERY 6 HOURS NEEDED, Starting on Wed08/12/22 at 1533, Until Viktoria 08/13/22 at 1833, Nausea / Vomiting, 2nd line, Post-op/Post-Proc Or Prochlorperazine (COMPAZINE) injection 10 mgJump to med 10 mg, Intravenous, EVERY 6 HOURS NEEDED, Starting on 08/12/22 at 1533, Until Viktoria 08/13/22 at 1833, Refractory Nausea Vomiting, 2nd Line
For IV route: dilute dose with 10mL normal saline and give by slow IV push at a rate of 5mg/min. Maximum of 40mg/day.
Post-op/Post-Proc FOR RECORDS PERTAINING TO PATIENTS WHO ARE OR HAVE BEEN ENROLLED IN A CHEMICAL DEPENDENCY/SUBSTANCEABUSE PROGRAM, SOME INFORMATION MAY BE OMITTED. This clinical summary was aggregated from multiple sources. Caution should be exercised in using it in the provision of clinical care. This summary normalizes information from multiple sources, and as a consequence, information in this document may materially change the coding, format and clinical context of patient data. In addition, data may be omitted in some cases. CLINICAL DECISIONS SHOULD BE BASED ON THE PRIMARY CLINICAL RECORDS. [employer] [facility]. provides no warranty or guarantee of the accuracy or completeness of information in this document.
== END | disposition home or self-care (01) ==
LOC: LAB 15:13
PROVIDERS: PCP Family Medicine Geriatric Medicine; Visit Provider Family Medicine Geriatric Medicine
DX: I10 Essential (primary) hypertension (principal); I48.91 Unspecified atrial fibrillation; E78.5 Hyperlipidemia, unspecified; M10.9 Gout, unspecified; E55.9 Vitamin D deficiency, unspecified; Z79.01 Long term (current) use of anticoagulants
CPT/HCPCS: 36415; 80053; 80061; 82306; 84443; 84550; 85025; 85610

== ENCOUNTER → 2023-04-19 | Outpatient (CLI) | payer MEDICARE, SELFPAY ==
--- NOTE | 2023-04-19 15:53 | CT_ITS ---
EXAMINATION : Head CT w/out contrast HISTORY : SYNCOPE COMPARISON : 12/16/2022. TECHNIQUE : Multiple contiguous axial images were obtained from the skull base to the vertex without intravenous contrast. A radiation dose optimization technique was used for this scan. FINDINGS : There is no evidence for acute intracranial hemorrhage, mass effect, or midline shift. There is no extra-axial fluid collection. There are periventricular white matter changes consistent with chronic microvascular ischemic disease. There is sulcal widening and ventricular enlargement consistent with cerebral atrophy. There is normal ramirez-white differentiation, without CT evidence of acute ischemia or infarct. The skull base and calvarium are unremarkable. The orbits are unremarkable. The paranasal sinuses are clear. The mastoid air cells are well-aerated. The soft tissues are unremarkable. CT/Brain/Head without Contrast IMPRESSION: No acute intracranial abnormality. Chronic involutional and ischemic changes of the brain. Electronically Signed: Marco Antonio Nickerson MD at 16:54 EST ,
== END | disposition home or self-care (01) ==
LOC: CT 15:37
PROVIDERS: PCP Family Medicine Geriatric Medicine; Visit Provider Family Medicine Geriatric Medicine
DX: R55 Syncope and collapse (principal)
CPT/HCPCS: 70450

== ENCOUNTER → 2023-05-03 | Outpatient (CLI) | payer MEDICARE, SELFPAY | END | disposition home or self-care (01) | PROVIDERS: PCP Family Medicine Geriatric Medicine; Referring Provider Family Medicine Geriatric Medicine; Visit Provider Family Medicine Geriatric Medicine | DX: R55 Syncope and collapse (principal) | CPT/HCPCS: 95819 ==

== ENCOUNTER → 2023-05-05 | Outpatient (CLI) | payer MEDICARE, SELFPAY ==
--- NOTE | 2023-05-05 08:21 | CT_ITS ---
STUDY: CT CHEST T ABDOMEN WITH CONTRAST REASON FOR EXAM: Female, 72 years old. Evaluate treatment response. History of lung carcinoma. RADIATION DOSAGE (If Supplied By Facility): CTDIvol = ( 13.04 ) mGy, DLP = ( 912.22 ) mGycm TECHNIQUE: Transaxial imaging was performed following intravenous administration of IV 100mL Isovue-300. Multiplanar coronal and sagittal images were reformatted. Individualized dose optimization techniques were used for this CT. COMPARISON: Comparison is made with prior study dated February 01, 2023 and December 09, 2022. FINDINGS: CHEST A right-sided portacatheter is seen with the tip in the superior vena cava. There is loss of volume in the right hemithorax with shift of the heart and mediastinal structures to the left side. Small to moderate sized left pleural effusion with persistent patchy infiltrates in the left hemithorax although has been improvement as compared to prior study. Stable emphysematous changes in the right hemithorax. There are calcifications of the coronary arteries. Small pericardial effusion. There are small lymph nodes within the mediastinum, which are normal in size and morphology most compatible with reactive lymph hyperplasia. Normal hilar regions. Normal unenhanced pulmonary arteries. There is atherosclerotic calcification of the aortic arch with tortuosity and elongation of the aortic arch and descending thoracic aorta. There are multi-level degenerative changes of the thoracic spine. ABDOMEN Normal liver. Normal gallbladder and extrahepatic biliary system. Normal spleen. Normal pancreas. Normal bilateral adrenal glands. Normal right kidney. 1.2 cm cyst in the left kidney. Normal visualized stomach. Normal small intestine. There are scattered colonic diverticula consistent with diverticulosis. There is non-visualization of the appendix. 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 Normal inferior vena cava. Normal retroperitoneum. Normal abdominal wall. There are diffuse degenerative changes of the visualized lumbar spine. CT/CT Chest AND Abd W/ Contrast IMPRESSION: Stable left pleural effusion with persistent infiltrates in the left hemithorax although there has been improvement as compared to prior study. Stable intra-abdominal findings. Electronically Signed: Joseph Ott MD at 13:33 EST ,
== END | disposition home or self-care (01) ==
LOC: CT 08:20
PROVIDERS: PCP Family Medicine Geriatric Medicine; Referring Provider Internal Medicine Medical Oncology; Visit Provider Internal Medicine Medical Oncology
DX: R91.1 Solitary pulmonary nodule (principal); C77.1 Secondary and unspecified malignant neoplasm of intrathoracic lymph nodes; C34.92 Malignant neoplasm of unspecified part of left bronchus or lung; J70.1 Chronic and other pulmonary manifestations due to radiation
CPT/HCPCS: 71260; 74160; Q9967; A4216

== ENCOUNTER → 2023-05-13 | Outpatient (CLI) | payer MEDICARE, SELFPAY ==
--- NOTE | 2023-05-13 12:18 | RAD_ITS ---
INDICATION: BILATERAL PAIN EXAMINATION/TECHNIQUE: X-RAY - LEFT XR Foot Min 3 Views 3 VIEWS COMPARISON: 10/05/2019. FINDINGS: No acute fracture or dislocation. Prior amputation of the second digit. Severe hallux valgus with bunion deformity, increased compared to the prior study. No destructive bone changes. Joint spaces are well-maintained. Normal alignment. Soft tissues are unremarkable. No radiopaque foreign body or soft tissue gas. RAD/Foot min 3 Views IMPRESSION: No acute findings. Hallux valgus and bunion. Electronically Signed: Rama Sequeira MD at 20:27 EST Reading Location ID and State: [id number] / Tel , Service support ,
--- NOTE | 2023-05-13 12:19 | RAD_ITS ---
STUDY: X-RAY - RIGHT FOOT CLINICAL: Female, 72 years old. BILATERAL FOOT PAIN TECHNIQUE: 3 view(s) of the foot. COMPARISON: None. FINDINGS: Normal talus, calcaneus, and tarsal bones. Normal visualized subtalar, talonavicular, calcaneocuboid, tarsal and tarsometatarsal articulations. Normal metatarsi. There is degenerative arthrosis of the metatarsophalangeal joint of the hallux with a hallux valgus deformity. Normal tibial and fibular sesamoid bones. Normal interphalangeal joint of the great toe. Normal phalanges of the great toe. Normal second through fifth metatarsophalangeal joints. Normal interphalangeal joints and phalanges of the lesser toes. The soft tissue structures are unremarkable. RAD/Foot min 3 Views IMPRESSION: Degenerative changes at the first metatarsophalangeal joint with evidence of hallux valgus deformity. Electronically Signed: Joseph Ott MD at 13:31 EST ,
== END | disposition home or self-care (01) ==
LOC: RAD 12:13
PROVIDERS: PCP Family Medicine Geriatric Medicine; Referring Provider Internal Medicine Medical Oncology; Visit Provider Internal Medicine Medical Oncology
DX: M79.671 Pain in right foot (principal); M79.672 Pain in left foot
CPT/HCPCS: 73630

== ENCOUNTER 2023-06-16 12:02 | Inpatient (IN) | payer MEDICARE, SELFPAY ==
[2023-06-16] VITALS (9 sets, daily range): BP systolic 100–160; BP diastolic 49–81; PULSE 71–85; RESP 16–18; TEMP 36.6–37.2; O2SAT 92–99; BMI 26.7
--- NOTE | 2023-06-16 12:21 | RAD_ITS ---
STUDY: X-RAY CHEST REASON FOR EXAM: Female, 72 years old. Sob TECHNIQUE: Single AP portable view of the chest. COMPARISON: Comparison is made with prior study dated December 04, 2022. FINDINGS: EKG electrodes are seen. There now is evidence of small to moderate size left pleural effusion with left basilar infiltration and/or atelectasis. There is volume loss in the left hemithorax with shift of the heart and mediastinal structures towards the left side. The right lung is clear. Normal size heart. Normal mediastinum and veronica. Normal visualized pulmonary arteries. There is atherosclerotic calcification of the aortic arch with tortuosity. There are diffuse degenerative changes of the visualized thoracic spine. Normal visualized ribs, clavicles, and shoulders. There is no demonstrated abnormality of the visualized soft tissue structures of the upper abdomen. RAD/Chest 1 View (Portable) IMPRESSION: Small to moderate size left pleural effusion with left basilar infiltration and/or atelectasis with volume loss in the left hemithorax and shift of the heart and mediastinal structures towards the left side of the midline. Electronically Signed: Joseph Ott MD at 13:49 EDT ,
--- NOTE | 2023-06-16 12:25 | EDS_ITS ---
HPI History of Present Illness Chief Complaint: Weakness Informant: patient Onset/Context/Timing Onset: Yesterday Narrative Narrative: Patient presents via EMS secondary to weakness. She reportedly started new medi cation yesterday (valacyclovir) secondary to chickenpox affecting my eye. She fell asleep around 7 PM last night and felt okay but woke this morning with weakness in her right leg, numbness and pain in her left leg, and some pain in her left arm. She reportedly had 2 falls at home but had assisted falls and did not hurt herself. She denies back pain. She denies striking her head or loss of consciousness. Patient is on chronic Coumadin. 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 Obesity Oral candidiasis Prerenal azotemia UTI (urinary tract infection) Vitamin D deficiency Wears dentures Wears glasses Home Medications gabapentin 300 mg capsule 300 mg PO QHS 09/03/22 [History Last Taken 12/03/22] metoprolol succinate 50 mg tablet,extended release 24 hr 50 mg PO DAILY 12/04/22 [History Last Taken 12/03/22] amiodarone 200 mg tablet 200 mg PO DAILY Correction of dose, only once per day #90 tabs 01/12/23 [Rx Last Taken Unknown] warfarin 4 mg tablet 4 mg PO .COMPLEX #90 tabs 01/12/23 [Rx Last Taken Unknown] allopurinol 100 mg tablet 100 mg PO DAILY 02/08/23 [History Last Taken Unknown] valacyclovir 1 gram tablet 1,000 mg PO TID 06/16/23 [History Last Taken Unknown] Allergy/AdvReac Type Severity Reaction Status Date / Time No Known Allergies Allergy Verified 06/10/23 13:00 Family History Father , 58 Lung cancer Mother Breast cancer Sister Breast cancer Surgical History Amputated toe of left foot H/O mastectomy H/O: hammer toe correction History of colonoscopy (~2019) History of excision of lesion History of hysterectomy History of oral surgery S/P AAA (abdominal aortic aneurysm) repair S/P breast lumpectomy Social History Smoking Status: Former smoker quit date: 03/15/12 pack-years: 39 alcohol intake: current alcohol intake frequency: a few times a week Alcohol type: beer and wine substance use type: does not use ROS ROS ED Constitutional Constitutional ED: Denies chills or fever(s) Eyes Eyes: Denies discharge from eye(s) ENT ENT ED: Denies discharge from eye(s), rhinorrhea or sore throat Cardiovascular Cardiovascular: Denies chest pain or palpitations Respiratory/Chest Respiratory/Chest: Denies cough or dyspnea Gastrointestinal Gastrointestinal: Denies abdominal pain, diarrhea, nausea or vomiting Genitourinary Genitourinary ED: Denies dysuria Musculoskeletal Musculoskeletal: Reports extremity pain; Denies back pain Integumentary Denies Abrasions or rash Neurologic Neurologic: Reports paresthesias and weakness; Denies headache(s) Allergic/Immunologic Allergic/Immunologic ED: Denies lip swelling or urticaria EXAM Physical Exam Const Vital Signs: 06/16/23 12:04 06/16/23 12:02 06/16/23 14:02 Temperature 97.8 F Temperature Source Temporal Pulse Rate 75 73 Respiratory Rate 18 18 Respiratory Effort Short of Breath Respiratory Pattern Normal Blood Pressure 133/66 H 136/81 H Blood Pressure Mean 88 99 Pulse Ox 95 94 Oxygen Delivery Method Room Air Positive well nourished and well developed General Appearance ED: well developed HEENT Reports moist mucous membranes Eyes EOMs intact bilaterally Chest Wall inspection of chest normal and palpation of chest normal Resp normal respiratory effort and clear to auscultation bilaterally Cardio regular rate and regular rhythm GI non-tender Palpation: soft Extremity normal to inspection Neuro oriented x3 Neuro Narrative: Patient reports good sensation on testing throughout. She is dropping her left leg to the bed prior to the count of 5, but also complains of pain in her left thigh. She is able to hold her right leg up without difficulty. Upper extremity examination including [id number] testing is normal. NIH score is 1. 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 EKG obtained to evaluate for cardiac arrhythmia/ischemia. IV line initiated. Labwork obtained to evaluate for leukocytosis, anemia, and electrolyte derangement. Urinalysis obtained to evaluate for infection/hematuria. CTA of the head and neck obtained to evaluate for any acute intracranial abnormalities. History & Record Review Discussion w/independent historian: Patient and Significant other Additional record(s) reviewed:: Prior outpatient record and Prior labs Lab Data Attestation: I reviewed the patient's lab results. Labs: Laboratory Results - last 24 hr 06/16/23 06/16/23 12:40 13:55 WBC 15.0 H RBC 4.26 Hgb 13.1 Hct 40.8 MCV 95.8 MCH 30.8 MCHC 32.1 RDW Std Deviation 52.8 H RDW Coeff of Blanca 15.2 H Plt Count 282 MPV 9.3 Immature Gran % (Auto) 1.100 H Neut % (Auto) 80.8 H Lymph % (Auto) 6.6 L [place] % (Auto) 10.0 Eos % (Auto) 1.0 Baso % (Auto) 0.5 Absolute Neuts (auto) 12.1 H Absolute Lymphs (auto) 0.98 Nucleated RBC % 0 PT 20.0 H INR 1.7 Sodium 138 Potassium 4.4 Chloride 104 Carbon Dioxide 28.0 Anion Gap 6 BUN 31 H Creatinine 2.36 H Estim Creat Clear Calc 19.72 Est GFR (MDRD) Af Amer 26 L Est GFR (MDRD) Non-Af 21 L BUN/Creatinine Ratio 13.1 Glucose 98 Calcium 9.0 Total Bilirubin 0.60 Direct Bilirubin 0.06 AST 32 ALT 21 Alkaline Phosphatase 102 Total Protein 7.2 Albumin 3.2 Globulin 4.0 Urine Color Yellow Urine Clarity Cloudy Urine pH 6.0 Ur Specific [place] 1.010 Urine Protein 100 H Urine Glucose (UA) Normal Urine Ketones Negative Urine Occult Blood 50 H Urine Nitrite Negative Urine Bilirubin Negative Urine Urobilinogen Normal Ur Leukocyte Esterase 500 H Urine RBC 0 SEEN Urine WBC >100 SEEN Ur Squamous Epith Cells 0 SEEN Urine Bacteria 1+ Urine Mucus 0 SEEN Radiography Chest X-Ray - ED: 1 View and Left Effusion Diagnostic Testing: Clinical Impression(s) from Imaging Studies Chest X-Ray 06/16/23 12:21 IMPRESSION: Small to moderate size left pleural effusion with left basilar infiltration and/or atelectasis with volume loss in the left hemithorax and shift of the heart and mediastinal structures towards the left side of the midline. Electronically Signed: Joseph Ott MD at 13:49 EDT , Brain CT 06/16/23 13:23 IMPRESSION: Focal area of decreased attenuation in the head of the left caudate nucleus which was not present on prior study. This may represent either subacute or old lacunar infarct in the left basal ganglion. Chronic involutional and ischemic changes of the brain. Electronically Signed: Joseph Ott MD at 13:46 EDT , EKG Initial EKG: Attestation: I personally reviewed and interpreted this EKG as follows: Interpretation: Sinus Rhythm (Sinus at 69 with no acute ischemia.) Treatment and Re-Evaluation :: CBC was a white count of 15,000 with 80% neutrophils. Hemoglobin normal at 13.1. INR slightly subtherapeutic at 1.7. Chemistry studies significant for a BUN of 31 and a creatinine of 2.36. Approximately 6 weeks ago her creatinine was 0.86. LFTs are unremarkable. Urinalysis does show greater than 100 white cells with 1+ bacteria. Urine is sent for culture and patient given a dose of IV Rocephin. EKG is sinus rhythm with no evidence of ischemia. Portable chest x-ray per my interpretation reveals a large left pleural effusion. Radiology in terpretation reviewed and agrees. This appears similar to recent CT scan of the chest that was obtained from hematology/oncology. There last office note is also reviewed with the plan to repeat her imaging in October. CT scan of the head without contrast was obtained given her acute renal injury. This reveals evidence of decreased attenuation in the head of the left caudate nucleus which may represent either a subacute or old lacunar infarct. Test results discussed with patient and family at bedside. Patient will be discussed with hospitalist regarding admission for further testing and eval uation. Discharge Plan Triage Chief Complaint: Weakness ED Provider: Danita Devries Dx/Rx/DC Orders Clinical Impression: Acute kidney injury, Subtherapeutic international normalized ratio (INR), UTI (urinary tract infection), Weakness, CVA (cerebral vascular accident) Prescriptions: No Action gabapentin 300 mg capsule 300 mg PO QHS allopurinol 100 mg tablet 100 mg PO DAILY metoprolol succinate 50 mg tablet extended release 24 hr 50 mg PO DAILY valacyclovir 1 gram tablet 1,000 mg PO TID warfarin 4 mg tablet 4 mg PO .COMPLEX Qty: 90 3RF Protocol: Dose Management Condition: Wednesday Dose/Route: 4 mg Instruction: 1 x 4 mg tablet Condition: Wednesday Dose/Route: 4 mg Instruction: 1 x 4 mg tablet Condition: Wednesday Dose/Route: 4 mg Instruction: 1 x 4 mg tablet Condition: Wednesday Dose/Route: 4 mg Instruction: 1 x 4 mg tablet Condition: Dose/Route: 8 mg Instruction: 2 x 4 mg tablets Condition: Wednesday Dose/Route: 8 mg Instruction: 2 x 4 mg tablets Condition: Wednesday Dose/Route: 4 mg Instruction: 1 x 4 mg tablet Protocol Text: Adjustment Start Date: Wednesday04/07/23 INR Value: 2.4 INR Date: 04/07/23 Recheck Date: 04/14/23 Rx Instructions: 4 mg orally daily or as directed for dose changes.; amiodarone 200 mg tablet 200 mg PO DAILY Qty: 90 3RF Primary Care Provider: Walter Emanuel Chi Referrals: Walter Emanuel Chi, MD [Primary Care Provider] - Disposition Disposition: Acute Care Hospital [facility]
[2023-06-16] MEDS: 0.9% Normal Saline (1000mL) 1,000 ML 150 ML IV (12:51)
[2023-06-16 12:56] LABS: Absolute Lymphocyte Count 0.98 X10^3/uL (0.83-4.51); Absolute Neutrophil Count 12.1 X10^3/uL (2.0-7.7); Basophil# 0.07 X10^3/uL; Basophil% 0.5 % (0-1); Eosinophil# 0.15 X10^3/uL; Hematocrit 40.8 % (37-47); Hemoglobin 13.1 g/dL (12.0-15.0); Lymphocyte # 0.98 X10^3/ul (0.83-4.51); Lymphocyte % 6.6 % (19-41); Mean Corp Hgb Conc 32.1 g/dL (32-36); Mean Corpuscular Hgb 30.8 pg (27.0-32.0); Mean Corpuscular Volume 95.8 fL (81-99); Mean Platelet Vol. 9.3 fl (6.2-12.0); Monocyte# 1.49 X10^3/uL; NRBC Flagged by Analyzer 0 % (0-5); Neutrophil # 12.11 X10^3/uL (2.7-7.7); Neutrophil % 80.8 % (47-70); Platelet Count 282 K/mm3 (150-450); RBC Distribution Width CV 15.2 % (11.6-14.6); RBC Distribution Width SD 52.8 fl (35.1-43.9); Red Blood Count 4.26 M/mm3 (4.2-5.4)
[2023-06-16 13:11] LABS: AST(SGOT) 32 U/L (15-37); Alanine Aminotransfer ALT/SGPT 21 U/L (13-56); Albumin, Serum 3.2 g/dL (3.2-5.0); Alkaline Phosphatase 102 U/L (45-117); Anion Gap 6 (5-15); BUN 31 mg/dL (7-18); BUN/Creat Ratio 13.1 RATIO (10-20); Bilirubin, Direct 0.06 mg/dL (0.00-0.30); Chloride 104 mmol/L (98-107); Creatinine, Serum 2.36 mg/dL (0.55-1.02); EST Glomerular Filtration Rate 21 mL/min (>60); Est Glom Filt Rate - Afr Amer 26 mL/min (>60); Estimated Creatinine Clearance 19.72 ml/min; Glucose 98 mg/dL (74-106); Potassium 4.4 mmol/L (3.5-5.1); Protein, Total 7.2 g/dL (6.4-8.2); Sodium Level 138 mmol/L (136-145)
[2023-06-16 13:13] LABS: International Normalized Ratio 1.7
--- NOTE | 2023-06-16 13:23 | CT_ITS ---
STUDY: CT BRAIN WITHOUT CONTRAST REASON FOR EXAM: Female, 72 years old. Weakness. RADIATION DOSAGE (If Supplied By Facility): CTDIvol = ( 44.99 ) mGy, DLP = ( 745.49 ) mGycm TECHNIQUE: Transaxial CT imaging of the brain was performed without administration of intravenous contrast material. Individualized dose optimization techniques were used for this CT. COMPARISON: Comparison is made with prior study April 19, 2023 and December 16, 2022. FINDINGS: Normal soft tissue structures. Normal calvarium. There is mild cerebral atrophy with widening of the extra-axial spaces and ventricular dilatation. There are areas of decreased attenuation within the white matter tracts of the supratentorial brain, consistent with microvascular disease changes. Since prior study, there is evidence of decreased attenuation in the left head of the caudate nucleus suggestive of a old or subacute lacunar infarct. Normal brainstem. Normal cerebellum. There is no intracranial hemorrhage. There are no findings of an acute ischemic infarction. Atherosclerotic plaque formation of the vertebral arteries and cavernous portions of the internal carotid arteries bilaterally. Normal visualized paranasal sinuses. CT/Brain/Head without Contrast IMPRESSION: Focal area of decreased attenuation in the head of the left caudate nucleus which was not present on prior study. This may represent either subacute or old lacunar infarct in the left basal ganglion. Chronic involutional and ischemic changes of the brain. Electronically Signed: Joseph Ott MD at 13:46 EDT ,
[2023-06-16 13:56] LABS: Mucous, Urine 0 SEEN /hpf (<or=2+); Red Blood Cells-Urine 0 SEEN /hpf (0-5); Squamous Epithelial Cells - UA 0 SEEN /hpf (5-10)
[2023-06-16 14:00] LABS: Color, Urine Yellow (Yellow); Glucose, Dipstick Normal (Normal); Ketone-Dipstick Negative (Negative); Leukocyte Esterase-Dipstick 500 /ul (Negative); Nitrite-Dipstick Negative (Negative); Occult Blood-Urine 50 /ul (Negative); Protein-Dipstick 100 mg/dl (Negative); Urine Bilirubin Dipstick Negative (Negative); Urine Clarity Cloudy (Clear); Urine Urobilinogen Normal (Normal)
[2023-06-16 14:06] LABS: White Blood Cells >100 SEEN /hpf (0-5)
[2023-06-16 14:07] LABS: Bacteria 1+ /hpf (None Seen)
[2023-06-16] MEDS: Ceftriaxone 1 GM/50 ML BAG IV (14:46)
--- NOTE | 2023-06-16 15:11 | PCM.HP.STD ---
HPI - General General Date of Admission: 06/16/23 Date of Service: 06/16/23 Chief Complaint: Feeling increased weakness after waking up. Fell down twice. Left leg weaker. HPI Narrative OSMIN DAN, is a 72 F with multiple comorbidities who was brought to ED by EMS for weakness. She stated she was in her baseline health last night when she went to bed but she woke up with feeling of increased weakness. She also does not remember how she came to the kitchen from the bedroom but remember that her left leg weaker and held the support and slid down on her buttock. She uses walker but she was not using it. She denies any significant injury. Denies striking head or loss of consciousness. Besides that she has right leg numbness and pain which increased from baseline. Usually she has right foot numbness. Patient is also on warfarin which she does not remember exact indication but her said she had irregular heartbeat in the past during 1 admission. She had history of breast cancer of right side which probably metastatic to floor of mouth for which she had surgery. She also has NSCLC. She completed her chemotherapy on October 28, 2022 and states she is currently in remission. She follows Dr. Pringle and Dr. Alexander. In ED, twelve-lead EKG shows normal sinus rhythm LAD, LVH please do not take medication 1 hour before or 2 hours after Carafate. Slight intraventricular delay, QRS 126 ms at 69 bpm. Glucose was [address] head shows focal area of decreased attenuation in the head of left carotid nucleus not present on prior study probably subacute or old lacunar infarct. 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 Obesity Oral candidiasis Prerenal azotemia UTI (urinary tract infection) Vitamin D deficiency Wears dentures Wears glasses Home Medications gabapentin 300 mg capsule 300 mg PO QHS 09/03/22 [History Last Taken 12/03/22] metoprolol succinate 50 mg tablet,extended release 24 hr 50 mg PO DAILY 12/04/22 [History Last Taken 12/03/22] amiodarone 200 mg tablet 200 mg PO DAILY Correction of dose, only once per day #90 tabs 01/12/23 [Rx Last Taken Unknown] warfarin 4 mg tablet 4 mg PO .COMPLEX #90 tabs 01/12/23 [Rx Last Taken Unknown] allopurinol 100 mg tablet 100 mg PO DAILY 02/08/23 [History Last Taken Unknown] valacyclovir 1 gram tablet 1,000 mg PO TID 06/16/23 [History Last Taken Unknown] Allergy/AdvReac Type Severity Reaction Status Date / Time No Known Allergies Allergy Verified 06/10/23 13:00 Family History Father , 58 Lung cancer Mother Breast cancer Sister Breast cancer Surgical History Amputated toe of left foot H/O mastectomy H/O: hammer toe correction History of colonoscopy (~2019) History of excision of lesion History of hysterectomy History of oral surgery S/P AAA (abdominal aortic aneurysm) repair S/P breast lumpectomy Social History Smoking Status: Former smoker quit date: 03/15/12 pack-years: 39 alcohol intake: current alcohol intake frequency: a few times a week Alcohol type: beer and wine substance use type: does not use ROS ROS Narrative Constitutional: Reports fatigue and weakness. No fever. HEENT: Reports systems reviewed and no addt'l complaints, except as documented Respiratory/Chest: No acute shortness of breath or respiratory distress or wheezing. History of lung cancer CVS: No chest pain pressure or tightness Gastrointestinal: Denies coffee ground emesis, hematemesis or vomiting Genitourinary: Denies burning urination or new urinary tract symptoms Musculoskeletal: Recurrent fall. On walker as per , she fell about 6-8 times in last 6-month. Last fall prior to today was about 3 to 4 weeks ago. Neurologic: Denies seizure-like symptoms. Rest as described in HPI skin: No ulcer. No rash Endocrinology: Reports systems reviewed and no addt'l complaints, except as documented Hematologic/Lymphatic: History of breast, lung and floor of mouth cancer. Reports systems reviewed and no addt'l complaints, except as documented Rest 14 ROS are negative except as mentioned in HPI Vital Signs Vital Signs Vital Signs: 06/16/23 12:04 06/16/23 12:02 06/16/23 14:02 Temperature 97.8 F Temperature Source Temporal Pulse Rate 75 73 Respiratory Rate 18 18 Respiratory Effort Short of Breath Respiratory Pattern Normal Blood Pressure 133/66 H 136/81 H Blood Pressure Mean 88 99 Pulse Ox 95 94 Oxygen Delivery Method Room Air Weight Weight: 151 lb 0.266 oz Body Mass Index (BMI) 26.7 Physical Exam Narrative General: Alert, Oriented x3, Cooperative HEENT: Atraumatic, PERRLA, EOMI, Normocephalic Oral: No Gingival or Mucosal Lesions/ Ulcerations Neck: Supple, No JVD, Negative Carotid Bruits Chest wall/Lungs: Air entry diminished in bilateral lung bases. No crepitation/rhonchi Cardiovascular: Regular rate, Regular Rhythm, Normal S1, Normal S2, No M/G/R Abdomen: Bowel Sounds Present, Soft, Non Tender, Non-Distended : No dysuria. No renal angle tenderness. No suprapubic tenderness. Extremities: No edema, Capillary Refill Less than 3 Seconds Skin: No rashes, No breakdown Musculoskeletal: Left leg is weaker 4/5 at hip and knee joints. ROM intact. No Tenderness to Palpation of Joints or Extremities Neurological: Cranial nerves II-XII grossly intact, DTR 2+/4. Mild weakness. Psych/Mental Status: Normal Affect, Appropriate. Results Lab / Micro Data 06/16/23 12:40 06/16/23 12:40 Labs: Laboratory Results - last 24 hr 06/16/23 12:40: WBC 15.0 H, RBC 4.26, Hgb 13.1, Hct 40.8, MCV 95.8, MCH 30.8, MCHC 32.1, RDW Std Deviation 52.8 H, RDW Coeff of Blanca 15.2 H, Plt Count 282, MPV 9.3, Immature Gran % (Auto) 1.100 H, Neut % (Auto) 80.8 H, Lymph % (Auto) 6.6 L, [place] % (Auto) 10.0, Eos % (Auto) 1.0, Baso % (Auto) 0.5, Absolute Neuts (auto) 12.1 H, Absolute Lymphs (auto) 0.98, Nucleated RBC % 0, PT 20.0 H, INR 1.7, Sodium 138, Potassium 4.4, Chloride 104, Carbon Dioxide 28.0, Anion Gap 6, BUN 31 H, Creatinine 2.36 H, Estim Creat Clear Calc 19.72, Est GFR (MDRD) Af Amer 26 L, Est GFR (MDRD) Non-Af 21 L, BUN/Creatinine Ratio 13.1, Glucose 98, Calcium 9.0, Total Bilirubin 0.60, Direct Bilirubin 0.06, AST 32, ALT 21, Alkaline Phosphatase 102, Total Protein 7.2, Albumin 3.2, Globulin 4.0 06/16/23 13:55: Urine Color Yellow, Urine Clarity Cloudy, Urine pH 6.0, Ur Specific [place] 1.010, Urine Protein 100 H, Urine Glucose (UA) Normal, Urine Ketones Negative, Urine Occult Blood 50 H, Urine Nitrite Negative, Urine Bilirubin Negative, Urine Urobilinogen Normal, Ur Leukocyte Esterase 500 H, Urine RBC 0 SEEN, Urine WBC >100 SEEN, Ur Squamous Epith Cells 0 SEEN, Urine Bacteria 1+, Urine Mucus 0 SEEN Imaging Radiology Impression Chest X-Ray 06/16/23 12:21 IMPRESSION: Small to moderate size left pleural effusion with left basilar infiltration and/or atelectasis with volume loss in the left hemithorax and shift of the heart and mediastinal structures towards the left side of the midline. Electronically Signed: Joseph Ott MD at 13:49 EDT , Brain CT 06/16/23 13:23 IMPRESSION: Focal area of decreased attenuation in the head of the left caudate nucleus which was not present on prior study. This may represent either subacute or old lacunar infarct in the left basal ganglion. Chronic involutional and ischemic changes of the brain. Electronically Signed: Joseph Ott MD at 13:46 EDT , Assessment & Plan Assessment/Plan (1) CVA (cerebral vascular accident): PLAN: Plan This 72-year-old female came to ED with left lower extremity weakness with right hand leg numbness and pain. 1. Left caudate nucleus subacute or old lacunar infarct: Patient is being admitted to PCU. Clinical history and brain CT findings does not correlate with acuity/timing of the stroke. MRI brain without contrast ordered. Patient not candidate for CTA or MRA of head head and neck therefore we will plan for later after improvement of kidney function. Carotid Doppler ordered. PT, OT, speech therapy/swallow evaluation and management, nursing NIH stroke scale, BP and glucose monitoring and control as per stroke protocol. TSH, A1c fasting lipid profile tomorrow AM. MRI brain and 2D echo with bubble contrast study ordered. 2. Left lung small to moderate pleural effusion with basilar infiltration/atelectasis associated with volume loss left hemithorax: Currently patient not short of breath tachypneic or tachycardic. Pulse ox 99% on room air. 3. History of non-small cell lung cancer with metastasis: She had last chemotherapy completed on October 28, 2022. She follows medical oncologist Dr. Pringle and radiation oncology Dr. Alexander. 4. History of breast cancer: Had ductal carcinoma in situ which was ER/FL positive. S/p treatment 5. Hypertension: on metoprolol 6. History of paroxysmal A-fib: Patient denies history of DVT/PE. As per she had one-time A-fib during hospital admission in the past which patient does not remember. INR 1.7. Continue warfarin. DVT prophylaxis: On warfarin Hyperlipidemia: Living will/advanced directive/end of life care: Patient does have living will or advanced directive. Patient's near the bedside is power of corporate attorney for health. After discussion of benefits/risks procedures involved with full code, DNR CC arrest and DNR CC with the patient, her and daughter near the bedside, the patient opted for DNR CC arrest with no intubation Patient doesn't want artificial life support including intubation, tube feed, ventilator and/chest compression, central venous catheter, vasopressor and DC shock if needed Total time spent in [id number] encounter in discussion of advanced directive 17 minutes. CODE STATUS: DNR CCA no intubation Laboratory Results 06/16/23 12:40: WBC 15.0 H, RBC 4.26, Hgb 13.1, Hct 40.8, MCV 95.8, MCH 30.8, MCHC 32.1, RDW Std Deviation 52.8 H, RDW Coeff of Blanca 15.2 H, Plt Count 282, MPV 9.3, Immature Gran % (Auto) 1.100 H, Neut % (Auto) 80.8 H, Lymph % (Auto) 6.6 L, [place] % (Auto) 10.0, Eos % (Auto) 1.0, Baso % (Auto) 0.5, Absolute Neuts (auto) 12.1 H, Absolute Lymphs (auto) 0.98, Nucleated RBC % 0, PT 20.0 H, INR 1.7, Sodium 138, Potassium 4.4, Chloride 104, Carbon Dioxide 28.0, Anion Gap 6, BUN 31 H, Creatinine 2.36 H, Estim Creat Clear Calc 19.72, Est GFR (MDRD) Af Amer 26 L, Est GFR (MDRD) Non-Af 21 L, BUN/Creatinine Ratio 13.1, Glucose 98, Calcium 9.0, Total Bilirubin 0.60, Direct Bilirubin 0.06, AST 32, ALT 21, Alkaline Phosphatase 102, Total Protein 7.2, Albumin 3.2, Globulin 4.0 06/16/23 13:55: Urine Color Yellow, Urine Clarity Cloudy, Urine pH 6.0, Ur Specific [place] 1.010, Urine Protein 100 H, Urine Glucose (UA) Normal, Urine Ketones Negative, Urine Occult Blood 50 H, Urine Nitrite Negative, Urine Bilirubin Negative, Urine Urobilinogen Normal, Ur Leukocyte Esterase 500 H, Urine RBC 0 SEEN, Urine WBC >100 SEEN, Ur Squamous Epith Cells 0 SEEN, Urine Bacteria 1+, Urine Mucus 0 SEEN Clinical Impression(s) from Imaging Studies Chest X-Ray 06/16/23 12:21 IMPRESSION: Small to moderate size left pleural effusion with left basilar infiltration and/or atelectasis with volume loss in the left hemithorax and shift of the heart and mediastinal structures towards the left side of the midline. Electronically Signed: Joseph Ott MD at 13:49 EDT , Brain CT 06/16/23 13:23 IMPRESSION: Focal area of decreased attenuation in the head of the left caudate nucleus which was not present on prior study. This may represent either subacute or old lacunar infarct in the left basal ganglion. Chronic involutional and ischemic changes of the brain. Charges/Coding Visit Charges Inpatient E&M: 20888 Init Hosp L3 Procedures Hospitalists Procedures: 18688 Advncd Care Plan 30 Min
[2023-06-16 15:40] LABS: Magnesium 2.2 mg/dL (1.6-2.6); Phosphorus 5.4 mg/dL (2.5-4.9)
--- NOTE | 2023-06-16 17:02 | CDU_ITS ---
Reason For Study: Stroke Rt. Velocities/BP Lt. Velocities/BP Prox CCA 70.2/16.3 cm/sec. Prox CCA 90/24.3 cm/sec. Mid CCA 59.8/14.5 cm/sec. Mid CCA 86.4/20.6 cm/sec. Dist CCA 135.7/24.3 cm/sec. Dist CCA 95.5/18.8 cm/sec. Prox ICA 101/18.8 cm/sec. Prox ICA 121.1/29.8 cm/sec. Mid ICA 104.7/27.9 cm/sec. Mid ICA 126.6/27.9 cm/sec. Dist ICA 98.8/24.7 cm/sec. Dist ICA 120/36.4 cm/sec. Rt. ICA/CCA = 1.49. Lt. ICA/CCA = 1.41. Prox ECA 83.9/9 cm/sec. Prox ECA 115.6/6 cm/sec. Rt. Vert. 57.7/13.8 cm/sec. Lt. Vert. 28.6/6.9 cm/sec. Right Extracranial There is heterogeneous, irregular atherosclerotic plaque noted in the right common carotid artery. There is heterogeneous, irregular atherosclerotic plaque noted in the right internal carotid artery. The right internal carotid artery is very tortuous. There is heterogeneous, irregular atherosclerotic plaque noted in the right external carotid artery. Antegrade flow is noted in the right vertebral artery. Left Extracranial There is heterogeneous, irregular atherosclerotic plaque noted in the left common carotid artery. There is heterogeneous, irregular atherosclerotic plaque noted in the left internal carotid artery. There is heterogeneous, irregular atherosclerotic plaque noted in the left external carotid artery. Antegrade flow is noted in the left vertebral artery. Procedure This is a Carotid Duplex examination using B-mode, color flow and specral Doppler. Carotid Duplex 39741. The study was technically difficult. Exam performed in department. VL/Carotid Duplex Ultrasound Interpretation Summary Mild (<50%) stenosis right extracranial internal carotid. Moderate (50-69%) stenosis left extracranial internal carotid. Patent and antegrade vertebrals bilaterally. Ordering Physician: Jatin Dawson Referring Physician: Walter Emanuel Chi Performed By: Cristine Mckeon RVT and Student
--- NOTE | 2023-06-16 17:02 | MRI_ITS ---
STUDY: MRA NECK WITHOUT CONTRAST REASON FOR EXAM: Female, 72 years old. stroke TECHNIQUE: Source images were obtained, MIPs were performed. The study was performed unenhanced. COMPARISON: None. FINDINGS: RIGHT CAROTID ARTERIES: Normal right common carotid artery (CCA). Normal right common carotid bulb. Normal origin of the right internal carotid (ICA) artery without a hemodynamically significant stenosis. Normal visualized cervical portion of the right internal carotid artery. Normal origin of the right external carotid artery (ECA). LEFT CAROTID ARTERIES: Normal left common carotid artery (CCA). Normal left common carotid bulb. Normal origin of the left internal carotid (ICA) artery without a hemodynamically significant stenosis. Normal visualized cervical portion of the left internal carotid artery. Normal origin of the left external carotid artery (ECA). VERTEBRAL ARTERIES: Normal antegrade flow within the bilateral vertebral artery without a hemodynamically significant stenosis. MRI/MRA Neck without Contrast IMPRESSION: Normal bilateral cervical carotid and vertebral arteries. Electronically Signed: Matteo Awan MD at 20:35 EDT ,
--- NOTE | 2023-06-16 17:02 | MRI_ITS ---
We are attempting to reach an attending provider to discuss findings. An addendum with communication details will be sent when the communication is complete. STUDY: MRI BRAIN WITHOUT CONTRAST REASON FOR EXAM: Female, 72 years old. stroke TECHNIQUE: Standardized multiplanar fat and water weighted pulse sequences were obtained. COMPARISON: CT of the brain June 16, 2023 MRI of the brain September 17, 2022. FINDINGS: Mild atrophy and moderate periventricular white matter ischemic change without mass effect or restricted diffusion.. Subacute hemorrhagic lesion with methemoglobin in the anterior limb of the left internal capsule possibly representing lacunar infarct although metastatic lesion not excluded. Normal thalami. There is no extra-axial fluid accumulation. Normal flow voids within the major intracranial circulation suggesting patency by spin echo criteria. Normal sella turcica, pituitary gland, infundibular stalk, optic chiasm and hypothalamus. Normal tectal plate and pineal gland. Normal midbrain, moni and medulla. Normal cerebellum. Normal basal cisterns. Normal bilateral temporal bones. Normal bilateral internal auditory canals. No demonstrated orbital abnormality, within the constraints of a routine brain study. Normal visualized paranasal sinuses. Normal calvarium and skull base. Normal visualized soft tissue structures. Normal visualized upper cervical spine. MRI/Brain without Contrast IMPRESSION: Probable subacute hemorrhagic infarct in the anterior limb of left internal capsule Metastatic disease less likely however would recommend clinical correlation and follow-up studies.. Electronically Signed: Matteo Awan MD at 20:34 EDT ,
--- NOTE | 2023-06-16 17:02 | MRI_ITS ---
STUDY: MRA OF THE HEAD WITHOUT CONTRAST REASON FOR EXAM: Female, 72 years old. STROKE TECHNIQUE: 3-D [id number] (TOF) imaging was performed with MIPs. The study was performed unenhanced. COMPARISON: None. FINDINGS: Normal bilateral petrous carotid arteries. Normal right cavernous carotid artery with a normal supraclinoid bifurcation. Normal left cavernous carotid artery with a normal supraclinoid bifurcation. Normal right A1 segments of the anterior cerebral artery. Normal left A1 segments of the anterior cerebral artery. Normal intact anterior communicating artery (ACOM). Normal bilateral A2 segments of the anterior cerebral arteries. Normal right M1 and M2 segments of the middle cerebral arteries, with a normal M1 bifurcation. Normal left M1 and M2 segments of the middle cerebral arteries, with a normal M1 bifurcation. Posterior communicating arteries are not visualized consistent with normal variant). Normal bilateral vertebral arteries. Normal basilar artery with a normal basilar bifurcation. The visualized bilateral superior cerebellar (SCA) arteries are normal. Normal bilateral P1, P2 and visualized P3 segments of the posterior cerebral arteries. There is no demonstrated aneurysm of the [place]. There is no major vessel occlusion or hemodynamically significant stenosis. . MRI/MRA Head ONLY without Contrast IMPRESSION: Normal MRA of the head Electronically Signed: Matteo Awan MD at 20:28 EDT ,
[2023-06-16] MEDS: Atorvastatin Calcium 80 MG Tablet PO (20:19)
[2023-06-16] MEDS: 0.9% Normal Saline (1000mL) 1,000 ML 100 ML IV (20:19)
[2023-06-16] MEDS: Aspirin 81 MG TAB.CHEW PO (20:19)
[2023-06-16] MEDS: Gabapentin 300 MG Capsule PO (20:41)
--- NOTE | 2023-06-16 21:12 | PCM.HOSP.N ---
Hospitalist Note MRI brain resulted with probable subacute hemorrhagic infarct in the anterior limb of the left internal capsule, MRA of the head unremarkable, MRA of the neck with normal bilateral cervical carotid and vertebral arteries. CT head upon ED arrival with noted focal area of decreased attenuation in the head of the left caudate nucleus. Stopping ASA, coumadin. Presentation INR 1.7. Patient on coumadin for PAF history. No PE/DVT history noted. Will request emergent Neurology consultation to review case to assess need for transfer for further evaluation and assist in [facility] transition if appropriate; however, the findings are subacute of note.
--- NOTE | 2023-06-16 22:44 | CT_ITS ---
We are attempting to reach an attending provider to discuss findings. An addendum with communication details will be sent when the communication is complete. EXAM: CT HEAD WITHOUT INTRAVENOUS CONTRAST CLINICAL INDICATION: ? bleed TECHNIQUE: Multiple axial images were obtained of the head without intravenous contrast. 11:[address] exam was performed using one or more of the following dose reduction techniques: automated exposure control, adjustment of the mA and/or kV according to patient size, and/or use of iterative reconstruction technique. RADIATION DOSE: Total DLP: 829.88 mGy-cm. COMPARISON: Nonenhanced cranial MRI of this date. Nonenhanced cranial CT of this date, 1:25 PM. FINDINGS: BRAIN AND EXTRA-AXIAL SPACES: There is a stable 1.7 cm lobulated hypoattenuating focus involving the anterior limb of the left internal capsule and left caudate head, consistent with subacute to old lacunar infarction; there is no evidence for acute hemorrhage in this area. There is minimal associated ex vacuo enlargement of the adjacent left frontal horn. Findings of mild age-related atrophy again noted with prominence of the cortical sulci, basal cisterns, sylvian fissures and ventricles. Mild-moderate patchy chronic small vessel ischemic changes are again noted within the deep white matter tracts. No intracranial mass or mass effect. Posterior fossa structures are unremarkable. BONES/JOINTS: Unremarkable. No discrete lytic or blastic abnormalities. VASCULATURE: Atherosclerotic vascular calcification is present. The middle cerebral arteries are not hyperdense. SINUSES: Unremarkable as visualized. Clear. MASTOID AIR CELLS: Unremarkable. Clear. ORBITS: Previous cataract extraction. CT/STROKE Brain/Head without Cont IMPRESSION: 1. No significant interval change as compared to the earlier study of this date. 2. Atrophy with chronic small vessel ischemic changes. 3. Subacute to old lacunar infarction again noted within the left basal ganglia. 4. No acute intracranial hemorrhage. Nonstandard communication protocol initiated. Electronically Signed: Leighton Jimenez MD at 23:25 EDT ,
--- NOTE | 2023-06-16 23:05 | NURSING ---
Upon entering room, patient only arousable to sternal rub, having trouble staying awake. NIH performed with special officer, scoring a 9, previosuly was a 0. Stroke alert called at [id number], see stroke alert documentation. Pt transported down to CT with stroke team and this RN.
[2023-06-16 23:51] LABS: Bedside Glucose 90 mg/dL (74-106)
[2023-06-17] VITALS (13 sets, daily range): BP systolic 105–136; BP diastolic 50–68; PULSE 65–88; RESP 16–18; TEMP 36.1–36.6; O2SAT 85–99; BMI 26.7
[2023-06-17 00:05] LABS: International Normalized Ratio 1.7; Prothrombin Time (Protime)PT. 19.8 SECONDS (11.7-14.9)
[2023-06-17] MEDS: Acyclovir 800 MG Tablet PO ×5 (05:09→22:19)
[2023-06-17] MEDS: 0.9% Normal Saline (1000mL) 1,000 ML 100 ML IV (06:23)
[2023-06-17 06:56] LABS: Bedside Glucose 180 mg/dL (74-106)
--- NOTE | 2023-06-17 07:01 | NURSING ---
Called to update Abhi on stroke alert. Explained that pt is doing better this AM and almost back to baseline. Abhi expressed understanding and appreciation for care.
[2023-06-17 07:28] LABS: Absolute Lymphocyte Count 0.64 X10^3/uL (0.83-4.51); Absolute Neutrophil Count 5.4 X10^3/uL (2.0-7.7); Basophil# 0.04 X10^3/uL; Basophil% 0.5 % (0-1); Eosinophil# 0.21 X10^3/uL; Eosinophils% 2.9 % (0-5); Hematocrit 35.6 % (37-47); Hemoglobin 11.3 g/dL (12.0-15.0); Lymphocyte # 0.64 X10^3/ul (0.83-4.51); Lymphocyte % 8.8 % (19-41); Mean Corp Hgb Conc 31.7 g/dL (32-36); Mean Corpuscular Hgb 30.9 pg (27.0-32.0); Mean Corpuscular Volume 97.3 fL (81-99); Mean Platelet Vol. 9.7 fl (6.2-12.0); Monocyte# 0.89 X10^3/uL; Monocyte% 12.2 % (0-10); NRBC Flagged by Analyzer 0 % (0-5); Neutrophil # 5.41 X10^3/uL (2.7-7.7); Neutrophil % 74.2 % (47-70); Platelet Count 264 K/mm3 (150-450); RBC Distribution Width CV 14.9 % (11.6-14.6); RBC Distribution Width SD 53.3 fl (35.1-43.9); Red Blood Count 3.66 M/mm3 (4.2-5.4); White Blood Count 7.3 K/mm3 (4.4-11.0)
[2023-06-17 07:51] LABS: International Normalized Ratio 1.8; Prothrombin Time (Protime)PT. 20.9 SECONDS (11.7-14.9)
[2023-06-17 08:12] LABS: Anion Gap 7 (5-15); BUN 28 mg/dL (7-18); BUN/Creat Ratio 14.7 RATIO (10-20); Calcium,Total 8.2 mg/dL (8.5-10.1); Chloride 111 mmol/L (98-107); Cholesterol 239 mg/dL (200); EST Glomerular Filtration Rate 28 mL/min (>60); Est Glom Filt Rate - Afr Amer 33 mL/min (>60); Glucose 120 mg/dL (74-106); High Density Lipoprotein 40 mg/dL; Potassium 3.8 mmol/L (3.5-5.1); Sodium Level 141 mmol/L (136-145); Thyroid Stim Hormone (TSH) 2.04 uIU/mL (0.358-3.74); Triglycerides 188 mg/dL; Very Low Density Lipoprotein 38 mg/dL (5-40)
[2023-06-17] MEDS: Allopurinol 100 MG Tablet PO (09:24)
[2023-06-17] MEDS: Aspirin 81 MG TAB.CHEW PO (09:24)
[2023-06-17] MEDS: Metoprolol(XL)Succ 50 MG Tablet PO (09:24)
[2023-06-17] MEDS: Amiodarone 200 MG Tablet PO (09:24)
[2023-06-17] MEDS: DIFLUPREDNATE 1 DRP OPTH.BTL RIGHT EYE ×4 (10:58→22:19)
[2023-06-17 11:00] LABS: Hemoglobin A1c 5.1 % (3.8-5.6)
--- NOTE | 2023-06-17 11:00 | CASEMGMT ---
LUISA GONZALES Assessment: Face to Face with pt for initial transition planning/care coordination assessment. LUISA GONZALES introduced self and role at [facility], pt voices understanding and consents to assessment. Pt is A&O x4 and answers all questions appropriately at this time. Pt sitting up in bed on RA with at bedside. Care providers, pharmacy, and demographics verified/updated. Admitting Dx: weakness PCP:Adelfo Specialists:Yary, onc; janie Alexander onc; Kingsley-eyes Preferred Pharmacy: [facility] Retail Insurance: [employer] Prescription Benefit: yes LNOK: Abhi Merchant, ; Veronica Alcantaradanette, dtr Living Arrangements: Pt lives with in a two story home with 3 steps to enter with a rail. Pt has FFSU and does not use upstairs. Pt reports being I in ADL's and IADL's. Pt denies concerns at home. Transportation: Pt provides transportation. DME:pox, walker- doesn't use all the time HHC/SNF: Denies hx of Pt states no concerns with going home at time of dc. Pt states she doesn't typically fall at home. This is her first fall since February. Pt has been to outpt therapy at [facility] and states this was beneficial to her. Pt states no further concerns/needs. CM to follow therapy. Advised pt to ask CM if any further question/concerns/needs arise, voices understanding. Pt Goal: Home, agreeable to therapy Plan: Home, follow therapy for rec on HH vs OP Natanael MORAN CM
[2023-06-17 12:07] LABS: Bedside Glucose 110 mg/dL (74-106)
--- NOTE | 2023-06-17 13:09 | PN_ITS ---
Subjective Subjective Patient seen and examined. Her was by her bedside. She complaiend of weakness in her lower extremities, mainly in her left lower extremity. Review of systems is otherwise negative. Objective Data Objective Data Vital Signs: Vital Signs Temp Pulse Resp BP Pulse Ox O2 Del Method O2 Flow Rate 97.8 F 82 18 136/68 H 93 Nasal Cannula 1 06/17/23 09:15 06/17/23 09:24 06/17/23 09:15 06/17/23 09:15 06/17/23 09:15 06/17/23 09:15 06/17/23 09:15 Oxygen Flow Rate (L/min) 1 Oxygen Delivery Method Nasal Cannula Weight: 151 lb 0.266 oz Body Mass Index (BMI) 26.7 Intake & Output: Intake and Output for Last 24 Hours 06/15/23 06/16/23 06/17/23 23:59 23:59 23:59 Intake Total 1050 / 1050 1120 / 1120 Output Total 900 / 900 Balance 1050 / 1050 220 / 220 Lab / Micro Data 06/17/23 06:30 06/17/23 06:30 Labs: Laboratory Results - last 24 hr 06/16/23 12:40: PT 20.0 H, INR 1.7, Sodium 138, Potassium 4.4, Chloride 104, Carbon Dioxide 28.0, Anion Gap 6, BUN 31 H, Creatinine 2.36 H, Estim Creat Clear Calc 19.72, Est GFR (MDRD) Af Amer 26 L, Est GFR (MDRD) Non-Af 21 L, BUN/Creatinine Ratio 13.1, Glucose 98, Calcium 9.0, Phosphorus 5.4 H, Magnesium 2.2, Total Bilirubin 0.60, Direct Bilirubin 0.06, AST 32, ALT 21, Alkaline Phosphatase 102, Total Protein 7.2, Albumin 3.2, Globulin 4.0 06/16/23 13:55: Urine Color Yellow, Urine Clarity Cloudy, Urine pH 6.0, Ur Specific [place] 1.010, Urine Protein 100 H, Urine Glucose (UA) Normal, Urine Ketones Negative, Urine Occult Blood 50 H, Urine Nitrite Negative, Urine Bilirubin Negative, Urine Urobilinogen Normal, Ur Leukocyte Esterase 500 H, U rine RBC 0 SEEN, Urine WBC >100 SEEN, Ur Squamous Epith Cells 0 SEEN, Urine Bacteria 1+, Urine Mucus 0 SEEN 06/16/23 23:03: POC Glucose 90 06/16/23 23:30: PT 19.8 H, INR 1.7 06/17/23 06:25: POC Glucose 180 H 06/17/23 06:30: WBC 7.3, RBC 3.66 L, Hgb 11.3 L, Hct 35.6 L, MCV 97.3, MCH 30.9, MCHC 31.7 L, RDW Std Deviation 53.3 H, RDW Coeff of Blanca 14.9 H, Plt Count 264, MPV 9.7, Immature Gran % (Auto) 1.400 H, Neut % (Auto) 74.2 H, Lymph % (Auto) 8.8 L, [place] % (Auto) 12.2 H, Eos % (Auto) 2.9, Baso % (Auto) 0.5, Absolute Neuts (auto) 5.4, Absolute Lymphs (auto) 0.64 L, Nucleated RBC % 0, PT 20.9 H, INR 1.8, Sodium 141, Potassium 3.8, Chloride 111 H, Carbon Dioxide 23.0, Anion Gap 7, BUN 28 H, Creatinine 1.90 H, Estim Creat Clear Calc 24.50, Est GFR (MDRD) Af Amer 33 L, Est GFR (MDRD) Non-Af 28 L, BUN/Creatinine Ratio 14.7, Glucose 120 H, Hemoglobin A1c 5.1, Calcium 8.2 L, Triglycerides 188, Cholesterol 239 H, LDL Cholesterol 161 H, VLDL Cholesterol 38, HDL Cholesterol 40, TSH 2.04 06/17/23 11:49: POC Glucose 110 H Micro: Microbiology 06/16/23 13:55 Urine, Clean Catch Urine Culture - Preliminary GNR 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 Electronically Signed: Joseph Ott MD at 13:49 EDT , Brain CT 06/16/23 13:23 IMPRESSION: Focal area of decreased attenuation in the head of the left caudate nucleus which was not present on prior study. This may represent either subacute or old lacunar infarct in the left basal ganglion. Chronic involutional and ischemic changes of the brain. Electronically Signed: Joseph Ott MD at 13:46 EDT , Brain MRI 06/16/23 17:02 IMPRESSION: Probable subacute hemorrhagic infarct in the anterior limb of left internal capsule Metastatic disease less likely however would recommend clinical correlation and follow-up studies.. Electronically Signed: Matteo Awan MD at 20:34 EDT , ADDENDUM: 06/16/232119 IMPRESSION: Probable subacute hemorrhagic infarct in the anterior limb of left internal capsule Metastatic disease less likely however would recommend clinical correlation and follow-up studies.. N.B. : The above Results were Read Back by Matteo Awan MD to Hetal Rodríguez MD, and understanding confirmed on 06/16/2023 21:13:11 (ET). Electronically Signed: Matteo Awan MD at 20:34 EDT , Carotid Duplex 06/16/23 17:02 Interpretation Summary Mild (<50%) stenosis right extracranial internal carotid. Moderate (50-69%) stenosis left extracranial internal carotid. Patent and antegrade vertebrals bilaterally. Ordering Physician: Jatin Dawson Referring Physician: Walter Emanuel Chi Performed By: Cristine Mckeon RVT and Student Head MRA 06/16/23 17:02 IMPRESSION: Normal MRA of the head Electronically Signed: Matteo Awan MD at 20:28 EDT , Neck MRA 06/16/23 17:02 IMPRESSION: Normal bilateral cervical carotid and vertebral arteries. Electronically Signed: Matteo Awan MD at 20:35 EDT , Brain CT 06/16/23 22:44 IMPRESSION: 1. No significant interval change as compared to the earlier study of this date. 2. Atrophy with chronic small vessel ischemic changes. 3. Subacute to old lacunar infarction again noted within the left basal ganglia. 4. No acute intracranial hemorrhage. Nonstandard communication protocol initiated. Electronically Signed: Leighton Jimenez MD at 23:25 EDT , ADDENDUM: 06/16/23 2335 IMPRESSION: 1. No significant interval change as compared to the earlier study of this date. 2. Atrophy with chronic small vessel ischemic changes. 3. Subacute to old lacunar infarction again noted within the left basal ganglia. 4. No acute intracranial hemorrhage. Nonstandard communication protocol initiated. N.B. : The above Results were Read Back by Leighton Jimenez MD to Lynda Dial RN, and understanding confirmed on 06/16/2023 23:28:40 (ET). Electronically Signed: Leighton Jimenez MD at 23:25 EDT , Physical Exam Const alert, oriented x3 and no apparent distress Constitutional Narrative: frail General Appearance: cooperative HEENT normocephalic, head/scalp atraumatic, moist oral mucous membranes and oropharynx normal Eyes PERRL and EOMs intact bilaterally Neck no lymphadenopathy, supple and no JVD Lymph Lymphatic: no lymphadenopathy noted and no lymphedema noted Resp normal respiratory effort, normal air movement and clear to auscultation bilaterally Cardio regular rate, regular rhythm, S1 normal heart sound, S2 normal heart sound and no murmurs GI normal to inspection, nondistended, normoactive bowel sounds, soft to palpation, non-tender and non-distended Extremity normal capillary refill, no clubbing, cyanosis or edema and no calf tenderness General Extremity: no tenderness to palpation of joints or extremities Skin General Skin Exam: no breakdown and turgor normal Neuro CN's II-XII intact bilaterally, no focal motor deficits, no sensory deficits noted and deep tendon reflexes 2+ bilaterally Motor Exam: strength 5/5 throughout and general weakness Psych thought process normal and cooperative Appearance: appropriate Assessment & Plan Assessment/Plan (1) Weakness: (2) UTI (urinary tract infection): PLAN: Plan #UTI * admitted with weakness and debility * initial CT of the brain was concerning for focal area of decreased attenuation in the head of the left caudate nucleus which was not present on previous study and may represent either a subacute or old lacunar infarct in the left basal ganglia. MRI of the brain showed probable subacute hemorrhagic infarct in the anterior lip of the left internal capsule. * Neurology reviewed patient. Per discussion neurologist had with handle and vent machine operator, there is no evidence of a stroke on the MRI. They think her symptoms are likely due to UTI * on IV ceftriaxone. Urine culture growing gram negative rods. * #Stroke like symptoms: as above. * Carotid USG showed mild <50% stenosis of the right extracranial internal carotid and moderate (50-69%) stenosis of the left extracranial carotid. * consult vascular surgery * cholesterol levels elevated: on high intensity statin. * 2D echo done: read pending * * #Carotid stenosis: as above. Vascular surgery consulted. #Hyperlipidemia: on high intensity statin. #History of non-small lung cancer with metastasis: On chemotherapy with last dose in October 2022. Follow-up with oncology and radiation oncology. #History of breast cancer: S/p treatment. 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 #Hypertension: On metoprolol #History of paroxysmal A-fib: On Coumadin. On metoprolol and amiodarone. #DVT prophylaxis: On Coumadin. INR is 1.8. Charges/Coding Visit Charges Inpatient E&M: 45862 Subs Hosp L2
[2023-06-17] MEDS: Ceftriaxone 1 GM/50 ML BAG IV (13:29)
--- NOTE | 2023-06-17 16:28 | CON.PCM.NE_ITS ---
Assessment and Plan: Stroke Assessment/Plan OSMIN DAN is a 72 F with left lower extremity weakness over the last week. MRI demonstrates DWI lesion in the Rt ALIC which could correlate with this motor deficit. There is no significant hemorrhagic component to this. She is already compliant with coumadin which can be continued. High intensity statin should be initiated at 80mg daily. No further neurovascular work up is recommend ed at this time and she should continue with physical therapy. 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 Malignant neoplasm of unspecified site of right female breast 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 Obesity Oral candidiasis Prerenal azotemia UTI (urinary tract infection) Vitamin D deficiency Wears dentures Wears glasses Home Medications gabapentin 300 mg capsule 300 mg PO QHS Pain 09/03/22 [History Last Taken 06/15/23] metoprolol succinate 50 mg tablet,extended release 24 hr 50 mg PO DAILY Cardiac 12/04/22 [History Last Taken 06/15/23] amiodarone 200 mg tablet 200 mg PO DAILY Correction of dose, only once per day #90 tabs 01/12/23 [Rx Last Taken 06/15/23] warfarin 4 mg tablet 4 mg PO .COMPLEX #90 tabs 01/12/23 [Rx Last Taken 06/15/23] allopurinol 100 mg tablet 100 mg PO DAILY Cardiac 02/08/23 [History Last Taken 06/15/23] difluprednate 0.05 % eye drops 1 drp RIGHT EYE 4X/DAY Eye infection 06/16/23 [History Last Taken 06/15/23] gabapentin 100 mg capsule 100 mg PO DAILY Artheritis Pain 06/16/23 [History Last Taken 06/15/23 10:00] valacyclovir 1 gram tablet 1,000 mg PO TID Eye Infection 06/16/23 [History Last Taken 06/15/23] Allergy/AdvReac Type Severity Reaction Status Date / Time No Known Allergies Allergy Verified 06/10/23 13:00 Family History Father , 58 Lung cancer Mother Breast cancer Sister Breast cancer Surgical History Amputated toe of left foot H/O mastectomy H/O: hammer toe correction History of colonoscopy (~2019) History of excision of lesion History of hysterectomy History of oral surgery S/P AAA (abdominal aortic aneurysm) repair S/P breast lumpectomy Social History Smoking Status: Former smoker quit date: 03/15/12 pack-years: 39 alcohol intake: current alcohol intake frequency: a few times a week Alcohol type: beer and wine substance use type: does not use Vital Signs Vital Signs Vital Signs: 06/16/23 17:03 06/16/23 20:30 06/16/23 20:00 Temperature 98.7 F 98.1 F Temperature Source Temporal Oral Pulse Rate 79 85 Pulse Strength Respiratory Rate 16 16 Respiratory Effort Normal Non-Labored Respiratory Depth Normal Respiratory Pattern Normal Blood Pressure 138/71 H 116/65 Blood Pressure Mean 93 82 Blood Pressure Source Monitor Blood Pressure Position Supine Blood Pressure Location Left Arm Pulse Ox 95 96 Oxygen Delivery Method Room Air Room Air Room Air Oxygen Flow Rate (L/min) 06/16/23 23:04 06/16/23 23:48 06/16/23 21:35 Temperature 98.7 F Temperature Source Temporal Pulse Rate 71 71 Pulse Strength Respiratory Rate 16 16 Respiratory Effort Respiratory Depth Respiratory Pattern Blood Pressure 100/49 L 100/49 L Blood Pressure Mean 66 66 Blood Pressure Source Blood Pressure Position Blood Pressure Location Pulse Ox 92 92 94 Oxygen Delivery Method Room Air Room Air Room Air Oxygen Flow Rate (L/min) 06/17/23 02:00 06/17/23 02:06 06/17/23 01:00 Temperature 97.0 F L Temperature Source Temporal Pulse Rate 65 Pulse Strength Respiratory Rate 16 Respiratory Effort Normal Non-Labored Respiratory Depth Normal Respiratory Pattern Normal Blood Pressure 105/50 L Blood Pressure Mean 68 Blood Pressure Source Blood Pressure Position Blood Pressure Location Pulse Ox 98 85 Oxygen Delivery Method Nasal Cannula Nasal Cannula Room Air Oxygen Flow Rate (L/min) 2 2 06/17/23 01:05 06/17/23 05:15 06/17/23 07:53 Temperature 97.0 F L Temperature Source Temporal Pulse Rate 65 Pulse Strength Respiratory Rate 18 Respiratory Effort Respiratory Depth Respiratory Pattern Blood Pressure 105/64 Blood Pressure Mean 77 Blood Pressure Source Blood Pressure Position Blood Pressure Location Pulse Ox 94 96 99 Oxygen Delivery Method Nasal Cannula Nasal Cannula Nasal Cannula Oxygen Flow Rate (L/min) 2 2 2 06/17/23 07:55 06/17/23 07:55 06/17/23 09:15 Temperature 97.8 F Temperature Source Oral Pulse Rate 82 Pulse Strength Normal (2+) Respiratory Rate 18 Respiratory Effort Normal Non-Labored Respiratory Depth Normal Respiratory Pattern Normal Blood Pressure 136/68 H Blood Pressure Mean 90 Blood Pressure Source Monitor Blood Pressure Position Semi-Fowlers Blood Pressure Location Right Arm Pulse Ox 93 Oxygen Delivery Method Nasal Cannula Nasal Cannula Oxygen Flow Rate (L/min) 2 1 06/17/23 09:24 06/17/23 13:18 06/17/23 13:15 Temperature 97.6 F L Temperature Source Oral Pulse Rate 82 82 Pulse Strength Respiratory Rate 18 Respiratory Effort Respiratory Depth Respiratory Pattern Blood Pressure 125/60 H Blood Pressure Mean 81 Blood Pressure Source Monitor Blood Pressure Position Semi-Fowlers Blood Pressure Location Right Arm Pulse Ox 95 92 Oxygen Delivery Method Room Air Oxygen Flow Rate (L/min) 1 06/17/23 14:09 06/17/23 14:00 Temperature Temperature Source Pulse Rate Pulse Strength Respiratory Rate Respiratory Effort Normal Non-Labored Respiratory Depth Normal Respiratory Pattern Normal Blood Pressure Blood Pressure Mean Blood Pressure Source Blood Pressure Position Blood Pressure Location Pulse Ox 95 Oxygen Delivery Method Nasal Cannula Oxygen Flow Rate (L/min) 1 1 Weight Weight: 68.5 kg Body Mass Index (BMI) 26.7 EEG Results Procedure Details EEG Procedure Details: OSMIN DAN is a 72 year old F with a past medical history of , who presents for evaluation of Electroencephalogram on DATE at TIME NIHSS NIHSS Nursing Documentation NIHSS Nursing Documentation: NIHSS: Ischemic Stroke/TIA Start: 06/16/23 17:02 Text: For PCU Patients: NIH and Neuro Check every 4 Status: Complete hours and PRN Freq: [id number] Protocol: Activity Type Activity Date Activity User E-sign Co-sign Detail Recorded Client Recorded Date Recorded By Document 06/17/23 13:15 AMG Desktop 06/17/23 13:50 AMG 06/17/23 13:15 NIH Stroke Scale [NIHSS] A score of 0 is normal or asymptomatic . Total possible score is 42. Inpatient: RN or Physician to activate a stroke alert for onset of new stroke symptoms or with NIHSS increase >/= 3 points. Following change in neurological status, NIHSS will be performed per physician order or more frequently PRN. -1a. Level of Consciousness Alert; keenly responsive -1b. LOC Questions Answers BOTH questions correctly. -1c. LOC Commands Performs both tasks correctly . -2. Best Gaze Normal -3. Visual No visual loss -4. Facial Palsy Normal symmetrical movements -5a. Left Arm No drift; arm holds 90 (or 45 ) degrees for full 10 seconds -5b. Right Arm No drift; arm holds 90 (or 45 ) degrees for full 10 seconds -6a. Left Leg Drift; leg falls by the end of 5- seconds, but does not hit bed -6b. Right Leg Drift; leg falls by the end of 5- seconds, but does not hit bed -7. Limb Ataxia Absent -8. Sensory Normal; no sensory loss -9. Best Language No aphasia; normal -10. Dysarthria Normal -11. Extinction and Inattention No abnormality -Total 2 Query Text:A score of 0 is normal or asymptomatic. Total possible score is 42 . ED: Notify Physician for NIHSS increase by > / = 3 points. Inpatient: RN or Physician to activate a stroke alert for NIHSS increase of > / = 3 points. Coma Scale [Assess] -Eye Opening Spontaneous -Motor Obeys Commands -Verbal Oriented [Total] -Coma Scale Total 15 NIHSS: Ischemic Stroke/TIA Start: 06/16/23 17:02 Text: For ICU Patients: NIH sroke scale at Status: Complete presentation and every 2 hours or with change in RN caregiver Freq: [id number] Protocol: Activity Type Activity Date Activity User E-sign Co-sign Detail Recorded Client Recorded Date Recorded By Document 06/16/23 18:00 EMERSON Desktop 06/16/23 18:14 EMERSON 06/16/23 18:00 NIH Stroke Scale [NIHSS] A score of 0 is normal or asymptomatic . Total possible score is 42. Inpatient: RN or Physician to activate a stroke alert for onset of new stroke symptoms or with NIHSS increase >/= 3 points. Following change in neurological status, NIHSS will be performed per physician order or more frequently PRN. -1a. Level of Consciousness Alert; keenly responsive -1b. LOC Questions Answers BOTH questions correctly. -1c. LOC Commands Performs both tasks correctly . -2. Best Gaze Normal -3. Visual No visual loss -4. Facial Palsy Normal symmetrical movements -5a. Left Arm No drift; arm holds 90 (or 45 ) degrees for full 10 seconds -5b. Right Arm No drift; arm holds 90 (or 45 ) degrees for full 10 seconds -6a. Left Leg Drift; leg falls by the end of 5- seconds, but does not hit bed -6b. Right Leg No drift; leg holds 30-degree position for full 5 seconds -7. Limb Ataxia Absent -8. Sensory Normal; no sensory loss -9. Best Language No aphasia; normal -10. Dysarthria Normal -11. Extinction and Inattention No abnormality -Total 1 Query Text:A score of 0 is normal or asymptomatic. Total possible score is 42 . ED: Notify Physician for NIHSS increase by > / = 3 points. Inpatient: RN or Physician to activate a stroke alert for NIHSS increase of > / = 3 points. Lab / Micro Data 06/17/23 06:30 06/17/23 06:30 Labs: Laboratory Results - last 24 hr 06/16/23 23:03: POC Glucose 90 06/16/23 23:30: PT 19.8 H, INR 1.7 06/17/23 06:25: POC Glucose 180 H 06/17/23 06:30: WBC 7.3, RBC 3.66 L, Hgb 11.3 L, Hct 35.6 L, MCV 97.3, MCH 30.9, MCHC 31.7 L, RDW Std Deviation 53.3 H, RDW Coeff of [place] 14.9 H, Plt Count 264, MPV 9.7, Immature Gran % (Auto) 1.400 H, Neut % (Auto) 74.2 H, Lymph % (Auto) 8.8 L, [place] % (Auto) 12.2 H, Eos % (Auto) 2.9, Baso % (Auto) 0.5, Absolute Neuts (auto) 5.4, Absolute Lymphs (auto) 0.64 L, Nucleated RBC % 0, PT 20.9 H, INR 1.8, Sodium 141, Potassium 3.8, Chloride 111 H, Carbon Dioxide 23.0, Anion Gap 7, BUN 28 H, Creatinine 1.90 H, Estim Creat Clear Calc 24.50, Est GFR (MDRD) Af Amer 33 L, Est GFR (MDRD) Non-Af 28 L, BUN/Creatinine Ratio 14.7, Glucose 120 H, Hemoglobin A1c 5.1, Calcium 8.2 L, Triglycerides 188, Cholesterol 239 H, LDL Cholesterol 161 H, VLDL Cholesterol 38, HDL Cholesterol 40, TSH 2.04 06/17/23 11:49: POC Glucose 110 H Micro: Microbiology 06/16/23 13:55 Urine, Clean Catch Urine Culture - Preliminary GNR lactose epic ambulatory analysts Imaging Radiology Impression Brain MRI 06/16/23 17:02 IMPRESSION: Probable subacute hemorrhagic infarct in the anterior limb of left internal capsule Metastatic disease less likely however would recommend clinical correlation and follow-up studies.. Electronically Signed: Matteo Awan MD at 20:34 EDT , ADDENDUM: 06/16/232119 IMPRESSION: Probable subacute hemorrhagic infarct in the anterior limb of left internal capsule Metastatic disease less likely however would recommend clinical correlation and follow-up studies.. N.B. : The above Results were Read Back by Matteo Awan MD to Hetal Rodríguez MD, and understanding confirmed on 06/16/2023 21:13:11 (ET). Electronically Signed: Matteo Awan MD at 20:34 EDT , Carotid Duplex 06/16/23 17:02 Interpretation Summary Mild (<50%) stenosis right extracranial internal carotid. Moderate (50-69%) stenosis left extracranial internal carotid. Patent and antegrade vertebrals bilaterally. Ordering Physician: Jatin Dawson Referring Physician: Walter Emanuel Chi Performed By: Cristine Mckeon RVT and Student Head MRA 06/16/23 17:02 IMPRESSION: Normal MRA of the head Electronically Signed: Matteo Awan MD at 20:28 EDT , Neck MRA 06/16/23 17:02 IMPRESSION: Normal bilateral cervical carotid and vertebral arteries. Electronically Signed: Matteo Awan MD at 20:35 EDT , Brain CT 06/16/23 22:44 IMPRESSION: 1. No significant interval change as compared to the earlier study of this date. 2. Atrophy with chronic small vessel ischemic changes. 3. Subacute to old lacunar infarction again noted within the left basal ganglia. 4. No acute intracranial hemorrhage. Nonstandard communication protocol initiated. Electronically Signed: Leighton Jimenez MD at 23:25 EDT , ADDENDUM: 06/16/23 2335 IMPRESSION: 1. No significant interval change as compared to the earlier study of this date. 2. Atrophy with chronic small vessel ischemic changes. 3. Subacute to old lacunar infarction again noted within the left basal ganglia. 4. No acute intracranial hemorrhage. Nonstandard communication protocol initiated. N.B. : The above Results were Read Back by Leighton Jimenez MD to Lynda Dial RN, and understanding confirmed on 06/16/2023 23:28:40 (ET). Electronically Signed: Leighton Jimenez MD at 23:25 EDT , Active Medications Active Medications Active Medications: Current Medications Generic Name Dose Route Start Last Admin Trade Name Freq PRN Reason Stop Dose Admin Acetaminophen 650 mg 06/16/23 17:02 Acetaminophen 325 Mg Tablet PO Q6H PRN PRN Pain 1-10 Or Fever >100.7 Acyclovir 800 mg 06/17/23 06:00 06/17/23 13:29 Acyclovir 800 Mg Tablet PO 800 mg 5X/DAY ALYSSIA Administration Allopurinol 100 mg 06/17/23 10:00 06/17/23 09:24 Allopurinol 100 Mg Tablet PO 100 mg DAILY ALYSSIA Administration Amiodarone HCl 200 mg 06/17/23 10:00 06/17/23 09:24 Amiodarone 200 Mg Tablet PO 200 mg DAILY ALYSSIA Administration Aspirin 81 mg 06/17/23 08:00 06/17/23 09:24 Aspirin 81 Mg Tab.Chew PO 81 mg BREAKFAST ALYSSIA Administration Atorvastatin Calcium 80 mg 06/16/23 22:00 06/16/23 20:19 Atorvastatin Calcium 80 Mg Tablet PO 80 mg QHS ALYSSIA Administration Hydralazine HCl 5 mg 06/16/23 17:02 Hydralazine 20 Mg/Ml Vial IV Q30M PRN to maintain BP goals Sodium Chloride 250 mls @ 15 mls/hr 06/16/23 17:04 IV .[id number] PRN Saline Flush Ceftriaxone Sodium 1 gm in 50 mls @ 100 mls/hr 06/17/23 12:05 06/17/23 14:31 Rocephin IV Infused Q24 ALYSSIA Infusion Labetalol HCl 10 - 20 mg 06/16/23 17:02 Labetalol (Prefilled) 20 Mg/4 Ml IV Q10M PRN PRN to Maintain BP Goals Metoprolol Succinate 50 mg 06/17/23 10:00 06/17/23 09:24 Metoprolol(Xl)Succ 50 Mg Tablet PO 50 mg DAILY ALYSSIA Administration Protocol Ondansetron HCl 4 mg 06/16/23 17:02 Ondansetron 4 Mg/2 Ml Vial IV Q8H PRN PRN NAUSEA/VOMITING Senna/Docusate Sodium 2 tablet 06/16/23 17:02 Senna/Docusate Sodium 1 Tablet PO BID PRN PRN Constipation Sodium Chloride 10 - 40 ml 06/16/23 17:04 0.9% Saline Lock 10 Ml Syringe IV UD PRN SALINE FLUSH Warfarin Sodium 4 mg 06/17/23 17:00 Warfarin 4 Mg Tablet PO [facility]
--- NOTE | 2023-06-17 18:43 | CON.PCM.SX_ITS ---
Assessment & Plan Assessment/Plan (1) Carotid stenosis: PLAN: No acute CVA and old L lacunar infarct not in typical carotid distribution. Carotid duplex did suggest 50-69% stenosis of the L ICA, not able to correlate with CTA secondary to EULALIO. No surgical plans at this time. Plan is for follow-up as an outpatient in a few weeks with likely CTA to correlate duplex results once kidney function recovers so that we can establish a plan for long-term monitoring of her carotid disease. Continue with Coumadin and high-intensity statin as per neurology recommendation. HPI Consult Data Date of Consult: 06/17/23 HPI Narrative HPI Narrative: OSMIN DAN, is a 72 F who presented to the [facility] ER with chief complaint of weakness. She was evaluated as a stroke alert and admitted for further workup in this regard. She was also found to have a UTI. I saw the patient resting comfortably in bed with her daughter at bedside. She reports that yesterday morning she was getting her morning medications and breakfast ready, suddenly felt very weak, and sat herself down on the floor. When she tried to get up assisted by her she had a controlled fall with that. She did not hit her head. She said she felt generally weak, maybe a bit weaker on the R side. She denies any associated vision changes, facial drooping, dysarthria, numbness. She has had multiple falls in the past. She does have a history of UTIs as well with weakness/confusion as symptoms. She denies any known history of prior CVA/TIA. No known history of carotid disease and no prior vascular surgical interventions. Brain CT showed subacute to old left lacunar infarct but was negative for any acute CVA. MRI showed also subacute L lacunar infarct and negative for acute stroke. MRA suggested no significant carotid disease though this is less sensitive than CTA. Carotid duplex showed <50% R ICA stenosis and 50-69% L ICA stenosis. CTA has not been obtained due to current EULALIO likely secondary to her UTI. Neurology recommended continue Coumadin and initiate high-intensity statin. She is on Coumadin for history of Afib. Her history is otherwise significant for NSCLC currently in remission followed by Dr. Pringle and Dr. Alexander, RA, AAA. 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 Obesity Oral candidiasis Prerenal azotemia UTI (urinary tract infection) Vitamin D deficiency Wears dentures Wears glasses Home Medications gabapentin 300 mg capsule 300 mg PO QHS Pain 09/03/22 [History Last Taken 06/15/23] metoprolol succinate 50 mg tablet,extended release 24 hr 50 mg PO DAILY Cardiac 12/04/22 [History Last Taken 06/15/23] amiodarone 200 mg tablet 200 mg PO DAILY Correction of dose, only once per day #90 tabs 01/12/23 [Rx Last Taken 06/15/23] warfarin 4 mg tablet 4 mg PO .COMPLEX #90 tabs 01/12/23 [Rx Last Taken 06/15/23] allopurinol 100 mg tablet 100 mg PO DAILY Cardiac 02/08/23 [History Last Taken 06/15/23] difluprednate 0.05 % eye drops 1 drp RIGHT EYE 4X/DAY Eye infection 06/16/23 [History Last Taken 06/15/23] gabapentin 100 mg capsule 100 mg PO DAILY Artheritis Pain 06/16/23 [History Last Taken 06/15/23 10:00] valacyclovir 1 gram tablet 1,000 mg PO TID Eye Infection 06/16/23 [History Last Taken 06/15/23] Allergy/AdvReac Type Severity Reaction Status Date / Time No Known Allergies Allergy Verified 06/10/23 13:00 Family History Father , 58 Lung cancer Mother Breast cancer Sister Breast cancer Surgical History Amputated toe of left foot H/O mastectomy H/O: hammer toe correction History of colonoscopy (~2019) History of excision of lesion History of hysterectomy History of oral surgery S/P AAA (abdominal aortic aneurysm) repair S/P breast lumpectomy Social History Smoking Status: Former smoker quit date: 03/15/12 pack-years: 39 alcohol intake: current alcohol intake frequency: a few times a week Alcohol type: beer and wine substance use type: does not use Physical Exam Const alert, oriented x3 and no apparent distress General Appearance: cooperative, comfortable and frail HEENT normocephalic, head/scalp atraumatic, hearing grossly normal bilaterally, external ears normal and external nose normal Nose: external nose normal Eyes EOMs intact bilaterally Neck General: normal visual inspection and trachea midline Resp normal respiratory effort, normal air movement, no retractions and no use of accessory muscles Effort and Inspection: able to speak in complete sentences; Negative for labored, stridor or audible wheezes Cardio regular rate and regular rhythm Extremity normal to inspection and no clubbing, cyanosis or edema Skin no rashes or lesions noted General Skin Exam: no breakdown Neuro oriented x3, CN's II-XII intact bilaterally, moves all extremities, no focal motor deficits and no sensory deficits noted Speech: speech normal Psych mental status grossly normal Appearance: grossly normal Attitude: calm and engaged Activity / Motor Behavior: appropriate eye contact Speech: normal speech Mood & Affect: euthymic mood Judgement: judgement good Lab / Micro Data 06/17/23 06:30 06/17/23 06:30 Labs: Laboratory Results - last 24 hr 06/16/23 23:03: POC Glucose 90 06/16/23 23:30: PT 19.8 H, INR 1.7 06/17/23 06:25: POC Glucose 180 H 06/17/23 06:30: WBC 7.3, RBC 3.66 L, Hgb 11.3 L, Hct 35.6 L, MCV 97.3, MCH 30.9, MCHC 31.7 L, RDW Std Deviation 53.3 H, RDW Coeff of Blanca 14.9 H, Plt Count 264, MPV 9.7, Immature Gran % (Auto) 1.400 H, Neut % (Auto) 74.2 H, Lymph % (Auto) 8.8 L, [place] % (Auto) 12.2 H, Eos % (Auto) 2.9, Baso % (Auto) 0.5, Absolute Neuts (auto) 5.4, Absolute Lymphs (auto) 0.64 L, Nucleated RBC % 0, PT 20.9 H, INR 1.8, Sodium 141, Potassium 3.8, Chloride 111 H, Carbon Dioxide 23.0, Anion Gap 7, BUN 28 H, Creatinine 1.90 H, Estim Creat Clear Calc 24.50, Est GFR (MDRD) Af Amer 33 L, Est GFR (MDRD) Non-Af 28 L, BUN/Creatinine Ratio 14.7, Glucose 120 H, Hemoglobin A1c 5.1, Calcium 8.2 L, Triglycerides 188, Cholesterol 239 H, LDL Cholesterol 161 H, VLDL Cholesterol 38, HDL Cholesterol 40, TSH 2.04 06/17/23 11:49: POC Glucose 110 H Micro: Microbiology 06/16/23 13:55 Urine, Clean Catch Urine Culture - Preliminary GNR lactose cover creaser Imaging Radiology Impression Brain MRI 06/16/23 17:02 IMPRESSION: Probable subacute hemorrhagic infarct in the anterior limb of left internal capsule Metastatic disease less likely however would recommend clinical correlation and follow-up studies.. Electronically Signed: Matteo Awan MD at 20:34 EDT Reading Location ID and State: [facility] / [place] Tel [phone], Service support , ADDENDUM: 06/16/232119 IMPRESSION: Probable subacute hemorrhagic infarct in the anterior limb of left internal capsule Metastatic disease less likely however would recommend clinical correlation and follow-up studies.. N.B. : The above Results were Read Back by Matteo Awan MD to Hetal Rodríguez MD, and understanding confirmed on 06/16/2023 21:13:11 (ET). Electronically Signed: Matteo Awan MD at 20:34 EDT , Carotid Duplex 06/16/23 17:02 Interpretation Summary Mild (<50%) stenosis right extracranial internal carotid. Moderate (50-69%) stenosis left extracranial internal carotid. Patent and antegrade vertebrals bilaterally. Ordering Physician: Jatin Dawson Referring Physician: Walter Emanuel Chi Performed By: Cristine Mckeon RVT and Student Head MRA 06/16/23 17:02 IMPRESSION: Normal MRA of the head Electronically Signed: Matteo Awan MD at 20:28 EDT , Neck MRA 06/16/23 17:02 IMPRESSION: Normal bilateral cervical carotid and vertebral arteries. Electronically Signed: Matteo Awan MD at 20:35 EDT , Brain CT 06/16/23 22:44 IMPRESSION: 1. No significant interval change as compared to the earlier study of this date. 2. Atrophy with chronic small vessel ischemic changes. 3. Subacute to old lacunar infarction again noted within the left basal ganglia. 4. No acute intracranial hemorrhage. Nonstandard communication protocol initiated. Electronically Signed: Leightno Jimenez MD at 23:25 EDT , ADDENDUM: 06/16/23 2335 IMPRESSION: 1. No significant interval change as compared to the earlier study of this date. 2. Atrophy with chronic small vessel ischemic changes. 3. Subacute to old lacunar infarction again noted within the left basal ganglia. 4. No acute intracranial hemorrhage. Nonstandard communication protocol initiated. N.B. : The above Results were Read Back by Leighton Jimenez MD to Lynda Dial RN, and understanding confirmed on 06/16/2023 23:28:40 (ET). Electronically Signed: Leighton Jimenez MD at 23:25 EDT ,
[2023-06-17] MEDS: Gabapentin 300 MG Capsule PO (22:19)
[2023-06-17] MEDS: Atorvastatin Calcium 80 MG Tablet PO (22:19)
[2023-06-18] VITALS (8 sets, daily range): BP systolic 112–124; BP diastolic 50–58; PULSE 63–82; RESP 18; TEMP 36.1–36.5; O2SAT 88–99
[2023-06-18] MEDS: Acyclovir 800 MG Tablet PO ×5 (05:30→21:08)
[2023-06-18 07:52] LABS: International Normalized Ratio 1.9; Prothrombin Time (Protime)PT. 21.9 SECONDS (11.7-14.9)
[2023-06-18 08:28] LABS: Anion Gap 5 (5-15); BUN 22 mg/dL (7-18); BUN/Creat Ratio 17.3 RATIO (10-20); Chloride 110 mmol/L (98-107); Creatinine, Serum 1.27 mg/dL (0.55-1.02); EST Glomerular Filtration Rate 44 mL/min (>60); Est Glom Filt Rate - Afr Amer 53 mL/min (>60); Estimated Creatinine Clearance 36.65 ml/min; Glucose 95 mg/dL (74-106); Potassium 4.2 mmol/L (3.5-5.1); Sodium Level 141 mmol/L (136-145)
[2023-06-18] MEDS: Ceftriaxone 1 GM/50 ML BAG IV (09:50)
[2023-06-18] MEDS: DIFLUPREDNATE 1 DRP OPTH.BTL RIGHT EYE ×4 (09:52→21:09)
[2023-06-18] MEDS: Metoprolol(XL)Succ 50 MG Tablet PO (09:52)
[2023-06-18] MEDS: Amiodarone 200 MG Tablet PO (09:52)
[2023-06-18] MEDS: Aspirin 81 MG TAB.CHEW PO (09:52)
[2023-06-18] MEDS: Allopurinol 100 MG Tablet PO (09:52)
--- NOTE | 2023-06-18 10:30 | RAD_ITS ---
STUDY: X-RAY CHEST REASON FOR EXAM: Female, 72 years old. pleural effusion TECHNIQUE: PA and lateral views of the chest. COMPARISON: Comparison is made with prior study dated June 15, 2024. FINDINGS: EKG electrodes are seen. Persistent pleural-parenchymal changes are seen at the left lung base. Stable shift of the heart and mediastinal structures into the left hemithorax. There has been mild improvement as compared to prior study. The right lung is clear. Normal size heart. Normal mediastinum and veronica. Normal visualized pulmonary arteries. There is atherosclerotic calcification of the aortic arch with tortuosity. There are diffuse degenerative changes of the visualized thoracic spine. Normal visualized ribs, clavicles, and shoulders. Endoluminal stent grafting is seen in the abdominal aorta. RAD/Chest PA and Lateral IMPRESSION: Persistent pleural-parenchymal changes at the left lung base. This is improved slightly as compared to prior study. The right lung is clear. Electronically Signed: Joseph Ott MD at 14:18 EDT ,
[2023-06-18 10:39] LABS: BNP,B-Type NATRIURETIC PEPTIDE 562.7 pg/mL (0-100)
--- NOTE | 2023-06-18 11:37 | PN_ITS ---
Subjective Subjective Patient seen and examined. was by her bedside. She had no active complaints. She says she was feeling better and wanted to be discharged home. Patient noted to be on 2 L of oxygen.. Nares she gets mildly hypoxic down to around 90% when symptoms are made to wean her off. She denies any cough or palpitations, dizziness, nausea or vomiting. Review of systems otherwise negative. Objective Data Objective Data Vital Signs: Vital Signs Temp Pulse Resp BP Pulse Ox O2 Del Method O2 Flow Rate 97.6 F L 82 18 124/50 H 94 Nasal Cannula 1.5 06/18/23 09:50 06/18/23 09:52 06/18/23 09:50 06/18/23 09:50 06/18/23 09:50 06/18/23 09:50 06/18/23 09:50 Oxygen Flow Rate (L/min) 1.5 Oxygen Delivery Method Nasal Cannula Weight: 151 lb 0.266 oz Body Mass Index (BMI) 26.7 Intake & Output: Intake and Output for Last 24 Hours 06/16/23 06/17/23 06/18/23 23:59 23:59 23:59 Intake Total 1050 / 1050 2241.67 / 2241.67 50 / 50 Output Total 1600 / 1600 900 / 900 Balance 1050 / 1050 641.67 / 641.67 -850 / -850 Lab / Micro Data 06/17/23 06:30 06/18/23 06:55 Labs: Laboratory Results - last 24 hr 06/17/23 11:49: POC Glucose 110 H 06/18/23 06:55: PT 21.9 H, INR 1.9, Sodium 141, Potassium 4.2, Chloride 110 H, Carbon Dioxide 26.0, Anion Gap 5, BUN 22 H, Creatinine 1.27 H, Estim Creat Clear Calc 36.65, Est GFR (MDRD) Af Amer 53 L, Est GFR (MDRD) Non-Af 44 L, BUN/Creatinine Ratio 17.3, Glucose 95, Calcium 9.0, B-Natriuretic Peptide 562.7 H Micro: Microbiology 06/16/23 13:55 Urine, Clean Catch Urine Culture - Final Escherichia coli Radiography Diagnostic Testing: Radiology Impression Carotid Duplex 06/16/23 17:02 Interpretation Summary Mild (<50%) stenosis right extracranial internal carotid. Moderate (50-69%) stenosis left extracranial internal carotid. Patent and antegrade vertebrals bilaterally. Ordering Physician: Jatin Dawson Referring Physician: Walter Emanuel Chi Performed By: Cristine Mckeon RVT and Student Neck MRA 06/16/23 17:02 IMPRESSION: Normal bilateral cervical carotid and vertebral arteries. Electronically Signed: Matteo Awan MD at 20:35 EDT , Physical Exam Const alert, oriented x3 and no apparent distress Constitutional Narrative: frail General Appearance: cooperative HEENT normocephalic, head/scalp atraumatic, moist oral mucous membranes and oropharynx normal Eyes PERRL and EOMs intact bilaterally Neck no lymphadenopathy, supple and no JVD Lymph Lymphatic: no lymphadenopathy noted and no lymphedema noted Resp normal respiratory effort, normal air movement and clear to auscultation bilaterally Cardio regular rate, regular rhythm, S1 normal heart sound, S2 normal heart sound and no murmurs GI normal to inspection, nondistended, normoactive bowel sounds, soft to palpation, non-tender and non-distended Extremity normal capillary refill, no clubbing, cyanosis or edema and no calf tenderness General Extremity: no tenderness to palpation of joints or extremities Skin General Skin Exam: no breakdown and turgor normal Neuro CN's II-XII intact bilaterally, no focal motor deficits, no sensory deficits noted and deep tendon reflexes 2+ bilaterally Motor Exam: strength 5/5 throughout and general weakness Psych thought process normal and cooperative Appearance: appropriate Assessment & Plan Assessment/Plan (1) Weakness: (2) UTI (urinary tract infection): PLAN: Plan #UTI * admitted with weakness and debility * initial CT of the brain was concerning for focal area of decreased attenuation in the head of the left caudate nucleus which was not present on previous study and may represent either a subacute or old lacunar infarct in the left basal ganglia. MRI of the brain showed probable subacute hemorrhagic infarct in the anterior lip of the left internal capsule. * Neurology reviewed patient. Per discussion neurologist had with clinical science liaison, there is no evidence of a stroke on the MRI. They think her symptoms are likely due to UTI * on IV ceftriaxone. Urine culture growing E coli, sensitive to ceftriaxone * #Acute exacerbation of HFpEF * Patient still requiring 2 L of oxygen. Chest x-ray did not show small to moderate left pleural effusion. * BNP checked today is elevated at >500 * 2D echo from 2022 showed EF of 60% with stage I diastolic dysfunction and no regional motion abnormalities at * #Stroke like symptoms: as above. * Carotid USG showed mild <50% stenosis of the right extracranial internal carotid and moderate (50-69%) stenosis of the left extracranial carotid. * Per vascular surgery, to follow-up on outpatient basis * cholesterol levels elevated: on high intensity statin. * 2D ech ordered * * #Carotid stenosis: as above. Vascular surgery recommends follow up on outaptien bais #Hyperlipidemia: on high intensity statin. #History of non-small lung cancer with metastasis: On chemotherapy with last dose in October 2022. Follow-up with oncology and radiation oncology. #History of breast cancer: S/p treatment. 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 #Hypertension: On metoprolol #History of paroxysmal A-fib: On Coumadin. On metoprolol and amiodarone. #DVT prophylaxis: On Coumadin. INR is 1.9 today. Charges/Coding Visit Charges Inpatient E&M: 01545 Subs Hosp L2
[2023-06-18] MEDS: 0.9% Saline Lock 10 ML Syringe IV (11:50)
[2023-06-18] MEDS: Furosemide 40 MG/4 ML Vial IV (11:50)
--- NOTE | 2023-06-18 12:07 | ECHOD_ITS ---
Reason For Study: DYSPNEA/SOB Procedure This was a 2D Doppler, Color Flow transthoracic echocardiogram. Exam performed portable in patient room. Left Ventricle Normal LV size. Mild concentric left ventricular hypertrophy. The left ventricular ejection fraction is 60 %. Stage 1 diastolic dysfunction. Right Ventricle Normal right ventricle. Atria The left and right atria are normal. Mitral Valve There is Mild focal posterior mitral annular calcification. Tricuspid Valve Normal tricuspid valve. Aortic Valve Trisinus/trileaflet aortic valve. Pulmonic Valve The pulmonic valve is not well visualized. Great Vessels Normal sized aortic root. Pericardium/Pleural Epicardial fat. MMode/2D Measurements & Calculations LVIDd: 4.2 cm IVSd: 1.2 cm Ao root diam: 2.8 cm LVIDs: 2.9 cm LVPWd: 1.1 cm RVDd: 3.5 cm FS: 31.1 % LAV(MOD-bp): 43.6 ml LVAd ap4: 24.7 cm2 SV(MOD-sp4): 43.5 ml LAV(MOD-bp) Indexed: 25.4 ml/m2 LVLd ap4: 7.3 cm LAV(MOD-sp2): 45.4 ml EDV(MOD-sp4): 70.4 ml LAV(MOD-sp4): 37.9 ml EDV(sp4-el): 71.2 ml LVAs ap4: 13.6 cm2 LVLs ap4: 5.8 cm ESV(MOD-sp4): 26.9 ml ESV(sp4-el): 27.0 ml EF(MOD-sp4): 61.8 % EF(sp4-el): 62.1 % SV(sp4-el): 44.2 ml LA A4 area: 16.2 cm2 LA dimension(2D): 2.9 cm RA A4 area: 14.2 cm2 TAPSE: 1.8 cm Time Measurements MV dec time: 0.28 sec Doppler Measurements & Calculations MV E max darryl: 56.3 cm/sec Lat Peak E' Darryl: 7.4 cm/sec Med Peak E' Darryl: 7.2 cm/sec MV A max darryl: 75.3 cm/sec E/E' lat: 7.6 E/E' med: 7.8 MV E/A: 0.75 Ao V2 max: 123.2 cm/sec LV V1 max: 95.3 cm/sec PA V2 max: 85.3 cm/sec Ao max P.1 mmHg LV V1 max P.6 mmHg ECHO/Echo Complete Interpretation Summary Mild concentric left ventricular hypertrophy. The left ventricular ejection fraction is 60 %. Global longitudinal strain is - 18.4% (normal). Stage 1 diastolic dysfunction. There is Mild focal posterior mitral annular calcification. Epicardial fat. Ordering Physician: Mary Jefferson Referring Physician: UZMA AKERS Performed By: Milady Graves RDCS
--- NOTE | 2023-06-18 15:30 | CASEMGMT ---
LUISA GONZALES NOTE: LUISA GONZALES to room to discuss discharge planning. Pt resting in bed. @ bedside. Introduced self and role. Pt wishes to discharge home. Discussed HHC and OP therapy options. Initially pt stated she wanted HHC, but once LUISA GONZALES made her aware of homebound criteria for HHC, she states she likes to get out and about in the community and plans to go out with her and to the grocery store and she states she would not be homebound. She states she has done OP therapy @ [facility] in the past and would like to do that again. Pt made aware a script for OP therapy can be provided to her @ discharge. Questions answered. Pt and made aware, if once pt returns home, if she is weaker than expected and is homebound and if she changes her mind and wants HHC, to discuss this w/Dr Emanuel, as this can be set up through PCP's office. Pt and voice understanding and appreciation of this information. Discussed home O2 set-up process, should she qualify for oxygen @ discharge. Initially pt stated that even if she qualified that she wouldn't accept it and she did not want it sent home w/her. Educated pt on risks of going home w/out oxygen if she needs it. voices to pt that he thinks she should accept it if she qualifies. She responded in a way that seemed she may be willing to accept it if she qualifies, but did not give definitive answer if she would or would not. Pt and confirm she does have a pulse ox @ home. Green sheet placed on chart for OP therapy and Home O2, should she qualify and if she is agreeable to home O2 set up @ discharge. OP therapy script prepared and placed on chart. This will need signed by physician and provided to pt @ discharge. Mikki AMIN RN, CM
--- NOTE | 2023-06-18 16:21 | CHAPLAIN ---
Type of Pastoral Visit _x__ Initial Visit ___ Follow-up Visit ___ On-call Visit ___ General Patient Visit ___ Spiritual Assessment ___ Family Conference ___ Bereavement ___ Rapid Response ___ Code Blue ___ Other (describe below) Pastoral Care Referral From _x__ Patient ___ Family ___ Nurse ___ Physician ___ Quality Control Industrial Engineer ___ Urgent Care Technician ___ Other (describe below) Sacrament/Intervention ___ Active listening ___ Anointing ___ Roman Catholic ___ Bereavement ___ Communion ___ Yolanda exploration ___ ___ Life review _x__ Prayer ___ Reconciliation ___ Sacrament of Sick _x__ Supportive presence ___ Wedding ___ Other (describe below) Pastoral Comments
[2023-06-18] MEDS: Atorvastatin Calcium 80 MG Tablet PO (21:08)
[2023-06-18] MEDS: Gabapentin 300 MG Capsule PO (21:08)
[2023-06-18 21:51] LABS: Bedside Glucose 137 mg/dL (74-106)
[2023-06-19] VITALS (9 sets, daily range): BP systolic 96–113; BP diastolic 45–59; PULSE 62–71; RESP 16–18; TEMP 36.1–36.4; O2SAT 84–99; BMI 26.7
[2023-06-19] MEDS: Acyclovir 800 MG Tablet PO ×2 (05:51→08:40)
[2023-06-19 06:46] LABS: Absolute Lymphocyte Count 0.88 X10^3/uL (0.83-4.51); Absolute Neutrophil Count 5.9 X10^3/uL (2.0-7.7); Basophil# 0.06 X10^3/uL; Basophil% 0.8 % (0-1); Eosinophil# 0.27 X10^3/uL; Eosinophils% 3.4 % (0-5); Hematocrit 38.4 % (37-47); Hemoglobin 12.1 g/dL (12.0-15.0); Lymphocyte # 0.88 X10^3/ul (0.83-4.51); Lymphocyte % 11.1 % (19-41); Mean Corp Hgb Conc 31.5 g/dL (32-36); Mean Corpuscular Volume 95.3 fL (81-99); Mean Platelet Vol. 9.6 fl (6.2-12.0); Monocyte# 0.77 X10^3/uL; Monocyte% 9.7 % (0-10); NRBC Flagged by Analyzer 0 % (0-5); Neutrophil # 5.87 X10^3/uL (2.7-7.7); Neutrophil % 73.6 % (47-70); Platelet Count 293 K/mm3 (150-450); RBC Distribution Width CV 14.7 % (11.6-14.6); RBC Distribution Width SD 51.3 fl (35.1-43.9); Red Blood Count 4.03 M/mm3 (4.2-5.4)
[2023-06-19 06:57] LABS: International Normalized Ratio 1.8; Prothrombin Time (Protime)PT. 20.8 SECONDS (11.7-14.9)
[2023-06-19 07:09] LABS: Anion Gap 6 (5-15); BUN 25 mg/dL (7-18); BUN/Creat Ratio 20.3 RATIO (10-20); Chloride 104 mmol/L (98-107); Creatinine, Serum 1.23 mg/dL (0.55-1.02); EST Glomerular Filtration Rate 45 mL/min (>60); Est Glom Filt Rate - Afr Amer 55 mL/min (>60); Estimated Creatinine Clearance 37.84 ml/min; Glucose 135 mg/dL (74-106); Potassium 3.8 mmol/L (3.5-5.1); Sodium Level 138 mmol/L (136-145)
[2023-06-19] MEDS: DIFLUPREDNATE 1 DRP OPTH.BTL RIGHT EYE (08:40)
[2023-06-19] MEDS: Aspirin 81 MG TAB.CHEW PO (08:40)
[2023-06-19] MEDS: Allopurinol 100 MG Tablet PO (08:40)
[2023-06-19] MEDS: Metoprolol(XL)Succ 50 MG Tablet PO (10:56)
[2023-06-19] MEDS: Amiodarone 200 MG Tablet PO (10:57)
--- NOTE | 2023-06-19 11:01 | PCM.DC.SUM ---
Providers Date of Admission: 06/16/23 Date of Discharge: 06/19/23 Primary Care Physician: Dr. Uzma Akers MD Consultations 06/16/23 21:12 Consult: Tele-Neurology Routine Consulting Provider: [facility] Reason for Consult: Probable subacute hemorrhagic infarct EMERGENT Consult: Yes MD Notified: Yes Date Notified: 06/16/23 Time Notified: 21:12 Method of Notification: Verbal Nursing Unit Staff Notify [facility] of Tele-Neurology Consult: Yes 06/16/23 22:44 Consult: Tele-Neurology Routine Consulting Provider: [facility] Reason for Consult: followup ? bleed EMERGENT Consult: No MD Notified: Yes Date Notified: 06/16/23 Time Notified: 21:21 Method of Notification: Answering Service Nursing Unit Staff Notify [facility] of Tele-Neurology Consult: Yes 06/17/23 13:24 Consult: Vascular Surgery Routine Consulting Provider: Sabas Fierro Reason for Consult: carotid stenosis EMERGENT Consult: No MD Notified: Yes Date Notified: 06/17/23 Time Notified: 13:24 Method of Notification: Text Reason For Visit: WEAKNESS Diagnosis Discharge Diagnosis (1) Weakness: Status: Acute Code(s): R53.1 - Weakness (2) UTI (urinary tract infection): Status: Acute Code(s): N39.0 - Urinary tract infection, site not specified Plan #UTI admitted with weakness and debility initial CT of the brain was concerning for focal area of decreased attenuation in the head of the left caudate nucleus which was not present on previous study and may represent either a subacute or old lacunar infarct in the left basal ganglia. MRI of the brain showed probable subacute hemorrhagic infarct in the anterior lip of the left internal capsule. Neurology reviewed patient. Per discussion neurologist had with street contractor, there is no evidence of a stroke on the MRI. They think her symptoms are likely due to UTI on IV ceftriaxone. Urine culture growing E coli, sensitive to ceftriaxone #Acute exacerbation of HFpEF Patient still requiring 2 L of oxygen. Chest x-ray did not show small to moderate left pleural effusion. BNP checked today is elevated at >500 2D echo from 2022 showed EF of 60% with stage I diastolic dysfunction and no regional motion abnormalities at #Stroke like symptoms: as above. Carotid USG showed mild <50% stenosis of the right extracranial internal carotid and moderate (50-69%) stenosis of the left extracranial carotid. Per vascular surgery, to follow-up on outpatient basis cholesterol levels elevated: on high intensity statin. 2D ech ordered #Carotid stenosis: as above. Vascular surgery recommends follow up on outaptien bais #Hyperlipidemia: on high intensity statin. #History of non-small lung cancer with metastasis: On chemotherapy with last dose in October 2022. Follow-up with oncology and radiation oncology. #History of breast cancer: S/p treatment. Had ductal carcinoma in situ which was ER and [place] positive. #Hypertension: On metoprolol #History of paroxysmal A-fib: On Coumadin. On metoprolol and amiodarone. #DVT prophylaxis: On Coumadin. INR is 1.9 today. Medications at Discharge Home Medications gabapentin 300 mg capsule 300 mg PO QHS Pain 09/03/22 metoprolol succinate 50 mg tablet,extended release 24 hr 50 mg PO DAILY Cardiac 12/04/22 amiodarone 200 mg tablet 200 mg PO DAILY Correction of dose, only once per day #90 tabs 01/12/23 warfarin 4 mg tablet 4 mg PO .COMPLEX #90 tabs 01/12/23 allopurinol 100 mg tablet 100 mg PO DAILY Cardiac 02/08/23 difluprednate 0.05 % eye drops 1 drp RIGHT EYE 4X/DAY Eye infection 06/16/23 gabapentin 100 mg capsule 100 mg PO DAILY Artheritis Pain 06/16/23 valacyclovir 1 gram tablet 1,000 mg PO TID Eye Infection 06/16/23 cefdinir 300 mg capsule 300 mg PO BID #10 caps 06/19/23 furosemide 40 mg tablet 40 mg PO DAILY #30 tabs 06/19/23 potassium chloride 20 mEq tablet,extended release(part/cryst) (Klor-Con M) 20 meq PO DAILY #30 tabs 06/19/23 Hospital Course Operations None Procedures 2-D Echocardiogram Summary of Care Provided Minutes Spent on Discharge: 55 Hospital Course: Patient is a 72-year-old female with a past medical history as outlined was admitted through the ED on 09/15/2023 with a complaint of weakness and mechanical falls. She woke up in the morning with a feeling of increased weakness. She felt her left leg was weaker and so she slid down the stairs to prevent herself from falling. She did have a history of right lower extremity numbness which she felt had increased. She also on Coumadin on account of A-fib. She also had a history of right-sided breast cancer which was metastatic and also had a history of non-small cell lung cancer for which she had completed chemotherapy. She was following up with pulmonology and oncology as well as radiation oncology. CT of the brain showed focal area of decreased attenuation in the head of the left caudate nucleus. There was concern for stroke probably a subacute old lacunar infarct. She was therefore admitted to be managed for left lower extremity weakness and strokelike symptoms to rule out a stroke. Neurology was consulted. She had a brain MRI which showed probable subacute hemorrhagic infarct in the anterior lip of the left internal capsule. Neurology was consulted, adn felt patient didnt have an acute stroke. Her symptoms were likely related to the subacute infarct. She was continued on her Coumadin. Of note patient also had evidence of UTI urine cultures grew E. coli sensitive to ceftriaxone. She was placed on ceftriaxone and transition to p.o. cefdinir for 5-day course at time of discharge. Hospital course was complicated by patient requiring 2 L of oxygen. Chest x-ray showed a small to moderate left-sided pleural effusion. BNP was over 500. 2D echo showed EF of 60% with stage I diastolic function and no regional wall motion abnormalities and mild concentric LVH. Repeat chest x-ray did show persistent pleural parenchymal changes of the left lung base which had improved slightly as compared to prior study. There was a stable shift of the heart and mediastinal structures to the left hemithorax. This was chronic and had been present in previous chest x-rays and CAT scans and could possibly be made related to fibrosis from her non-small cell lung cancer. Of note, carotid ultrasound done showed moderate 50 to 69% left extracranial carotid artery stenosis. Vascular surgery was consulted and recommended outpatient follow-up with them. Patient remained stable and was discharged on 06/19/2023. She was given a prescription for p.o. Lasix 40 mg daily as well as p.o. cefdinir 300 mg twice daily for 5 days. She did have a walking pulse ox which showed that she required 2 L of oxygen. She is follow-up with her primary care doctor within 1 to 2 weeks. Patient seen and examined prior to discharge. She had no active complaints. She felt well and was eager to be discharged home. Review of systems otherwise negative. Labs and vitals reviewed. Home medication reviewed and reconciled. She is to see her PCP in 2-3 days for her INR to be checked to ensure it is within therapeutic range. I have reviewed the oxygen testing, and this patient qualifies for the home equipment and portability. The patient is mobile in the home and the community. Patient required 2L of oxygen. Physical Exam Const alert, oriented x3 and no apparent distress Constitutional Narrative: frail General Appearance: cooperative and comfortable Orientation / Consciousness: awake HEENT normocephalic, head/scalp atraumatic, hearing grossly normal bilaterally, moist oral mucous membranes and oropharynx normal Mouth: oral and palatal mucosa normal Eyes PERRL, EOMs intact bilaterally and conjunctivae normal Neck no lymphadenopathy, supple and no JVD Lymph Lymphatic: no lymphadenopathy noted and no lymphedema noted Resp normal respiratory effort, normal air movement and clear to auscultation bilaterally Cardio regular rate, regular rhythm, S1 normal heart sound, S2 normal heart sound and no murmurs GI normal to inspection, nondistended, normoactive bowel sounds, soft to palpation, non-tender and non-distended Extremity normal to inspection, full ROM, normal capillary refill, no clubbing, cyanosis or edema and no calf tenderness General Extremity: no tenderness to palpation of joints or extremities Skin no rashes or lesions noted General Skin Exam: no breakdown and turgor normal Neuro oriented x3, CN's II-XII intact bilaterally, moves all extremities, no focal motor deficits, no sensory deficits noted and deep tendon reflexes 2+ bilaterally Sensorium / Orientation: awake and alert Motor Exam: strength 5/5 throughout and general weakness Psych thought process normal and cooperative Appearance: appropriate Weight / BMI Weight Weight: 151 lb 0.266 oz Body Mass Index (BMI) 26.7 ABG / Lab / Microbiology Data 06/19/23 06:20 06/19/23 06:20 Laboratory: Laboratory Results - last 24 hr 06/16/23 20:43: POC Glucose 137 H 06/19/23 06:20: WBC 8.0, RBC 4.03 L, Hgb 12.1, Hct 38.4, MCV 95.3, MCH 30.0, MCHC 31.5 L, RDW Std Deviation 51.3 H, RDW Coeff of Blanca 14.7 H, Plt Count 293, MPV 9.6, Immature Gran % (Auto) 1.400 H, Neut % (Auto) 73.6 H, Lymph % (Auto) 11.1 L, Meagher % (Auto) 9.7, Eos % (Auto) 3.4, Baso % (Auto) 0.8, Absolute Neuts (auto) 5.9, Absolute Lymphs (auto) 0.88, Nucleated RBC % 0, PT 20.8 H, INR 1.8, Sodium 138, Potassium 3.8, Chloride 104, Carbon Dioxide 28.0, Anion Gap 6, BUN 25 H, Creatinine 1.23 H, Estim Creat Clear Calc 37.84, Est GFR (MDRD) Af Amer 55 L, Est GFR (MDRD) Non-Af 45 L, BUN/Creatinine Ratio 20.3 H, Glucose 135 H, Calcium 9.0 Microbiology: Microbiology 06/16/23 13:55 Urine, Clean Catch Urine Culture - Final Escherichia coli Radiography Diagnostic Testing: Radiology Impression Chest X-Ray 06/18/23 10:30 IMPRESSION: Persistent pleural-parenchymal changes at the left lung base. This is improved slightly as compared to prior study. The right lung is clear. Electronically Signed: Joseph Ott MD at 14:18 EDT , Echocardiogram 06/18/23 12:07 Interpretation Summary Mild concentric left ventricular hypertrophy. The left ventricular ejection fraction is 60 %. Global longitudinal strain is -18.4% (normal). Stage 1 diastolic dysfunction. There is Mild focal posterior mitral annular calcification. Epicardial fat. Ordering Physician: Mary Jefferson Referring Physician: UZMA AKERS Performed By: Milady Graves RDCS D/C Instructions Discharge Diet: Low fat / Low cholesterol Discharge Activity: Return to Normal Activity Weight Bearing Status: Weight bearing as tolerated Call your doctor if you observe: Fever of 101 or Higher, Shortness of breath, Dizziness, Swelling in the ankles and Chest pain Meaningful Use Info Meaningful Use Diagnoses (Choose all that apply): CHF CHF PELON/ARB ordered at discharge?: No Reason PELON/ARB not ordered?: Not indicated Documented LVEF (%): 60 Discharge Plan Admission Admit Date/Time: 06/16/23 14:34 Primary Reason for Your Visit: UTI, weakness, acue HFpEF Attending Provider: Mary Jefferson Primary Care Provider: Uzma Akers Chi Consulting Providers: Conrad Gibson; Yesenia Addison; Katy Tomlinson; Lindsay Topete; Mariposa North; Chepe Yuen; Susan Sifuentes; Armando Chavez; Henry Yusuf; Chelsey Prado; Harjinder Lynn; Beatrice Win; Ariadna Abreu; Wendy Mckeon; Kyle Tomlinson; Ad Dee; Yusef Samson; Josi aCstorena; Edwige Barney; Jatin Dawson; Sabas Fierro Instructions Patient Instructions: Urinary Tract Infections in Women, UTI Ch, ED UTIs Women Additional Instructions / Restrictions: see PCP for INR monitoring in 2-3 days to ensure INR is in therapeutic range. Discharge Orders/Prescriptions Prescriptions: New cefdinir 300 mg capsule 300 mg PO BID Qty: 10 0RF furosemide 40 mg tablet 40 mg PO DAILY Qty: 30 2RF potassium chloride [Klor-Con M20] 20 mEq tablet,ER particles/crystals 20 meq PO DAILY Qty: 30 2RF Continued gabapentin 300 mg capsule 300 mg PO QHS allopurinol 100 mg tablet 100 mg PO DAILY metoprolol succinate 50 mg tablet extended release 24 hr 50 mg PO DAILY valacyclovir 1 gram tablet 1,000 mg PO TID difluprednate 0.05 % drops 1 drp RIGHT EYE 4X/DAY gabapentin 100 mg capsule 100 mg PO DAILY warfarin 4 mg tablet 4 mg PO .COMPLEX Qty: 90 3RF Protocol: Dose Management Condition: Wednesday Dose/Route: 4 mg Instruction: 1 x 4 mg tablet Condition: Wednesday Dose/Route: 4 mg Instruction: 1 x 4 mg tablet Condition: Wednesday Dose/Route: 4 mg Instruction: 1 x 4 mg tablet Condition: Wednesday Dose/Route: 4 mg Instruction: 1 x 4 mg tablet Condition: Dose/Route: 8 mg Instruction: 2 x 4 mg tablets Condition: Wednesday Dose/Route: 8 mg Instruction: 2 x 4 mg tablets Condition: Wednesday Dose/Route: 4 mg Instruction: 1 x 4 mg tablet Protocol Text: Adjustment Start Date: Wednesday04/07/23 INR Value: 2.4 INR Date: 04/07/23 Recheck Date: 04/14/23 Rx Instructions: 4 mg orally daily or as directed for dose changes.; amiodarone 200 mg tablet 200 mg PO DAILY Qty: 90 3RF Referrals / Follow Up: Uzma Akers Chi, MD [Primary Care Provider] - Within 2 Weeks (Please call office and make appointment within 2 weeks ) Sabas Fierro MD [Med Staff - Active Staff] - Within 2 Weeks Disposition Disposition (needs filled in before D/C Order can be placed): Home, Self Care Charges/Coding Visit Charges Inpatient E&M: 44556 Disch Hosp >30min
[2023-06-19] MEDS: Ceftriaxone 1 GM/50 ML BAG IV (11:02)
== END 2023-06-19 13:09 | disposition home or self-care (01) | DRG 690 ==
LOC: ED 14:42 → PCU 15:33
PROVIDERS: Family Medicine; Admitting Provider Internal Medicine; Emergency Provider Emergency Medicine; PCP Family Medicine Geriatric Medicine; Visit Provider Student in an Organized Health Care Education/Training Program
DX: N39.0 Urinary tract infection, site not specified (principal); J90 Pleural effusion, not elsewhere classified; N17.9 Acute kidney failure, unspecified; J98.11 Atelectasis; I11.0 Hypertensive heart disease with heart failure; I69.341 Monoplegia of lower limb following cerebral infarction affecting right dominant side; I48.0 Paroxysmal atrial fibrillation; E78.00 Pure hypercholesterolemia, unspecified; I65.23 Occlusion and stenosis of bilateral carotid arteries; M10.9 Gout, unspecified; Z79.01 Long term (current) use of anticoagulants; Z17.0 Estrogen receptor positive status [ER+]; Z87.891 Personal history of nicotine dependence; R53.81 Other malaise; R53.1 Weakness; Z85.3 Personal history of malignant neoplasm of breast; Z85.89 Personal history of malignant neoplasm of other organs and systems; Z92.21 Personal history of antineoplastic chemotherapy; Z79.899 Other long term (current) drug therapy; Z90.710 Acquired absence of both cervix and uterus; Z85.118 Personal history of other malignant neoplasm of bronchus and lung; Z22.359 Carrier of Enterobacterales, unspecified
CPT/HCPCS: 36415; 70450; 70544; 70547; 70551; 71045; 71046; 80048; 80061; 80076; 81001; 82962; 83036; 83735; 83880; 84100; 84443; 85025; 85610; 87077; 87086; 87088; 87186; 93005; 93306; 93880; 94668; 94762; 97116; 97162; 97166; 97530; 97535; 99285; J7030; J7040; A4216; J1940

== ENCOUNTER → 2023-06-24 | Outpatient (CLI) | payer MEDICARE, SELFPAY ==
[2023-06-24 12:58] LABS: Anion Gap 5 (5-15); BUN 31 mg/dL (7-18); BUN/Creat Ratio 21.8 RATIO (10-20); Calcium,Total 9.7 mg/dL (8.5-10.1); Chloride 103 mmol/L (98-107); Creatinine, Serum 1.42 mg/dL (0.55-1.02); EST Glomerular Filtration Rate 39 mL/min (>60); Est Glom Filt Rate - Afr Amer 47 mL/min (>60); Glucose 101 mg/dL (74-106); Potassium 4.4 mmol/L (3.5-5.1); Sodium Level 138 mmol/L (136-145)
== END | disposition home or self-care (01) ==
LOC: POLAB3 12:00
PROVIDERS: PCP Family Medicine Geriatric Medicine; Visit Provider Family Medicine Geriatric Medicine
DX: I10 Essential (primary) hypertension (principal)
CPT/HCPCS: 36415; 80048

== ENCOUNTER 2023-06-29 14:00 | Outpatient (RCR) | payer MEDICARE, SELFPAY ==
--- NOTE | 2023-06-29 15:22 | HP.PTEVAL ---
Patient's Visit Information Visit Information Visit Information: OSMIN DAN is a 72 year old F referred to Physical Therapy by Dr. Walter Emanuel MD with a diagnosis of Weakness. Date of Evaluation: 06/29/23 Physical Therapist: Aureliano Jackson, PT, ATC Visit Plan Frequency: 1x/Week Duration: 1 Week Plan: Issue and instruct pt on HEP of balance activity, B LE strengthening, and core strengthening ex's Subjective Subjective: Pt reports she has become more weak over the past month. Pt reports she has had a couple of UTI's over the past month which has made her more debilitated. Pt notes this has also lead to her having a few falls over the past month. Pt reports no significant injuries as a result of her falls. Pt reports she has Neuropathy in her feet, which has made her L foot numb, and her R foot hyposensitive. Pt reports she lives with her . Pt reports she has three stairs to enter her house, which she has to negotiate one step at a time. Pt reports she uses a walker when inside of her house, but notes she doesnt use anything outside of the house because she is usually with her who helps her to keep balance. Pt reports only her feet are in pain today secondary to her neuropathy. 7/10 pain noted Pain feet: Pain Intensity (Out of 10): 7 Pain Intensity Range: 7 Objective Objective: Neuro: B LE sensation is WNL to light touch. B patellar reflex= 2/3 MMT: B LE's are grossly 4-/5 throughout Gait: Pt is able to ambulate greater than 200 feet, but demonstrates a slow davide and LOB x 1 with no fall Stairs: Pt is able to negotiate 10 stairs at this time but requires 1 handrail, and negotiates them one step at a time Goals Goal 1:: I with HEP after 2 visits Goal Time Frame: 2 Weeks Rehabilitation Potential Physical Therapy Diagnosis: Pt has B LE weakness and a Hx of falls secondary to debilitation Rehabilitation Potential: Good Anticipated Interventions Patient/Client Instruction: Educate patient on: Condition and Plan of Care For the Purpose of:: To improve self management Therapeutic Exercise to Include: Strength training, Endurance training, Balance training, Gait and locomotor training and Dynamic Lumbar Stabilization For the Purpose of:: To improve muscle performance and motor function, To increase tolerance to activity/condition/position and To improve ability of physical actions for home/community/work/leisure Text: Thank you for the opportunity to evaluate your patient. For Medicare and Medicare HMO plans, please review the plan of care and approve it. It will need to be FAXED BACK to us at [phone] for Medicare purposes. For Medicare only, by signing this I certify the plan of care. Please let me know if there are questions or concerns regarding this plan of care. Physician Signature: Date:
--- NOTE | 2023-10-20 08:59 | HP.PT.NRP ---
Patient Information Patient Information: OSMIN DAN was seen in my office for initial evaluation on 06/29/23. The following Plan of Care was established for this patient: POC Established Initial Frequency: 1x/Week Initial Duration: 1 Week Anticipated Interventions Patient/Client Instruction: Educate patient on: Condition and Plan of Care For the Purpose of:: To improve self management Therapeutic Exercise to Include: Strength training, Endurance training, Balance training, Gait and locomotor training and Dynamic Lumbar Stabilization For the Purpose of:: To improve muscle performance and motor function, To increase tolerance to activity/condition/position and To improve ability of physical actions for home/community/work/leisure Last Seen Last Seen: This patient was last seen in our office . Pertinent comments regarding their Physical therapy will appear below: Pt was evaluated on the date of 06/29/23. Pt has not returned through todays date and is discontinued at this time. At this point I will be discontinuing this patient from physical therapy. I would be happy to see this patient again in the future if found appropriate by the physician. Thank you! Aureliano Jackson, PT, ATC
--- NOTE | 2023-10-20 09:00 | HP.PTDCSUM ---
Discharge Summary D/C summary: It has been my pleasure to treat OSMIN DAN referred by Dr. Walter Emanuel MD, with the diagnosis of Weakness for a total of 1 visit(s). Discharge Date: Please see the following information for a summary of their discharge status. Pain feet: Pain Intensity (Out of 10): 7 Goals Goal 1:: I with HEP after 2 visits Plan Plan: Issue and instruct pt on HEP of balance activity, B LE strengthening, and core strengthening ex's D/C Information d/c sentence: If there are questions or concerns regarding this patient's physical therapy, please feel free to call me at [phone]. Thank you for the referral of this patient. Sincerely, Aureliano Jackson, PT, ATC
== END 2023-06-29 19:00 | disposition home or self-care (01) ==
LOC: PT 14:00
PROVIDERS: PCP Family Medicine Geriatric Medicine; Referring Provider Family Medicine Geriatric Medicine; Visit Provider Family Medicine Geriatric Medicine
DX: R53.1 Weakness (principal)
CPT/HCPCS: 97161

== ENCOUNTER 2023-07-02 12:35 | Inpatient (IN) | payer MEDICARE, SELFPAY ==
[2023-07-02] VITALS (8 sets, daily range): BP systolic 116–130; BP diastolic 58–77; PULSE 72–86; RESP 16–20; TEMP 36.1–36.8; O2SAT 93–100; BMI 26.2; BMI 26.9
[2023-07-02 13:03] LABS: Bacteria 0 SEEN /hpf (None Seen); Mucous, Urine 0 SEEN /hpf (<or=2+); Red Blood Cells-Urine 0 SEEN /hpf (0-5)
[2023-07-02 13:05] LABS: Color, Urine Yellow (Yellow); Glucose, Dipstick Normal (Normal); Ketone-Dipstick Negative (Negative); Leukocyte Esterase-Dipstick 100 /ul (Negative); Nitrite-Dipstick Negative (Negative); Occult Blood-Urine 10 /ul (Negative); Protein-Dipstick 100 mg/dl (Negative); Urine Bilirubin Dipstick Negative (Negative); Urine Clarity Sl. Cloudy (Clear); Urine Urobilinogen Normal (Normal); Urine pH 6.5 (5.0 - 8.0)
[2023-07-02 13:07] LABS: Absolute Lymphocyte Count 1.07 X10^3/uL (0.83-4.51); Absolute Neutrophil Count 8.7 X10^3/uL (2.0-7.7); Basophil# 0.05 X10^3/uL; Basophil% 0.4 % (0-1); Eosinophil# 0.06 X10^3/uL; Eosinophils% 0.5 % (0-5); Hematocrit 42.5 % (37-47); Hemoglobin 13.5 g/dL (12.0-15.0); Lymphocyte # 1.07 X10^3/ul (0.83-4.51); Lymphocyte % 9.6 % (19-41); Mean Corp Hgb Conc 31.8 g/dL (32-36); Mean Corpuscular Volume 97.7 fL (81-99); Mean Platelet Vol. 9.3 fl (6.2-12.0); Monocyte# 1.11 X10^3/uL; NRBC Flagged by Analyzer 0 % (0-5); Neutrophil # 8.67 X10^3/uL (2.7-7.7); Neutrophil % 77.8 % (47-70); Platelet Count 341 K/mm3 (150-450); RBC Distribution Width CV 15.4 % (11.6-14.6); RBC Distribution Width SD 54.4 fl (35.1-43.9); Red Blood Count 4.35 M/mm3 (4.2-5.4); White Blood Count 11.2 K/mm3 (4.4-11.0)
[2023-07-02 13:11] LABS: Squamous Epithelial Cells - UA 0-5 SEEN /hpf (5-10); White Blood Cells >100 SEEN /hpf (0-5)
--- NOTE | 2023-07-02 13:20 | CT_ITS ---
STUDY: CT BRAIN WITHOUT CONTRAST REASON FOR EXAM: Female, 72 years old. History of falls. RADIATION DOSAGE (If Supplied By Facility): CTDIvol = ( 44.99 ) mGy, DLP = ( 745.49 ) mGycm TECHNIQUE: Transaxial CT imaging of the brain was performed without administration of intravenous contrast material. Individualized dose optimization techniques were used for this CT. COMPARISON: No relevant priors. FINDINGS: Normal soft tissue structures. Normal calvarium. There is mild cerebral atrophy with widening of the extra-axial spaces and ventricular dilatation. There are areas of decreased attenuation within the white matter tracts of the supratentorial brain, consistent with microvascular disease changes. Stable old lacunar infarct in the left basal ganglion. Normal brainstem. Normal cerebellum. There is no intracranial hemorrhage. There are no findings of an acute ischemic infarction. Atherosclerotic plaque formation of the vertebral arteries and cavernous portions of the internal carotid arteries bilaterally. Normal visualized paranasal sinuses. CT/Brain/Head without Contrast IMPRESSION: Chronic involutional changes of the brain. Stable old lacunar infarct in the left basal ganglia. Electronically Signed: Joseph Ott MD at 14:06 EDT ,
[2023-07-02 13:30] LABS: ALB/GLOB Ratio 0.7 RATIO (0.9-2.4); AST(SGOT) 45 U/L (15-37); Alanine Aminotransfer ALT/SGPT 24 U/L (13-56); Albumin, Serum 3.2 g/dL (3.2-5.0); Alkaline Phosphatase 102 U/L (45-117); Anion Gap 5 (5-15); BUN 31 mg/dL (7-18); BUN/Creat Ratio 12.7 RATIO (10-20); Calcium,Total 9.4 mg/dL (8.5-10.1); Chloride 106 mmol/L (98-107); Creatinine, Serum 2.45 mg/dL (0.55-1.02); EST Glomerular Filtration Rate 21 mL/min (>60); Est Glom Filt Rate - Afr Amer 25 mL/min (>60); Globulin 4.3 g/dL (2.2-4.2); Glucose 96 mg/dL (74-106); Potassium 5.7 mmol/L (3.5-5.1); Protein, Total 7.5 g/dL (6.4-8.2); Sodium Level 137 mmol/L (136-145)
--- NOTE | 2023-07-02 13:31 | EX.ED.DYSGE1 ---
HPI <JACINTO Birmingham - Last Filed: 07/02/23 15:48> History of Present Illness Chief Complaint: Fall Narrative Narrative: 72-year-old female with past medical history of A-fib, non-small cell lung cancer, chronic left pleural effusion states about 2 weeks ago she was admitted to the hospital with falls from a UTI. Since then she has felt unsteady but can ambulate with a walker. This morning she fell 3 times in a row. She states it happened twice in the bathroom and once in the kitchen. She falls because her left leg feels weak and gives out. She denies hitting her head or losing consciousness. She was able to get up and walk after these falls. She denies recent illness. She has no headache or focal motor or sensory changes. She has no chest pain, shortness of breath, or GI symptoms. She denies dysuria or frequency. She is on Coumadin for A-fib. 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 Obesity Oral candidiasis Prerenal azotemia UTI (urinary tract infection) Vitamin D deficiency Wears dentures Wears glasses Home Medications gabapentin 300 mg capsule 300 mg PO QHS Pain 09/03/22 [History Last Taken 07/01/23] metoprolol succinate 50 mg tablet,extended release 24 hr 50 mg PO DAILY Cardiac 12/04/22 [History Last Taken 07/02/23] amiodarone 200 mg tablet 200 mg PO DAILY #90 tabs 01/12/23 [Rx Last Taken 07/02/23] allopurinol 100 mg tablet 100 mg PO DAILY Cardiac 02/08/23 [History Last Taken 07/02/23] gabapentin 100 mg capsule 100 mg PO DAILY Artheritis Pain 06/16/23 [History Last Taken 07/02/23] valacyclovir 1 gram tablet 1,000 mg PO TID Eye Infection 06/16/23 [History Last Taken 07/02/23] potassium chloride 20 mEq tablet,extended release(part/cryst) (Klor-Con M) 20 meq PO DAILY #30 tabs 06/19/23 [Rx Last Taken 07/02/23] ascorbic acid (vitamin C) 500 mg tablet 500 mg PO BID 07/02/23 [History Last Taken 07/02/23] methenamine hippurate 1 gram tablet 1 g PO BID 07/02/23 [History Last Taken 07/02/23] warfarin 4 mg tablet 4 mg PO DAILY 07/02/23 [History Last Taken 07/02/23] Allergy/AdvReac Type Severity Reaction Status Date / Time No Known Allergies Allergy Verified 07/02/23 12:36 Family History Father , 58 Lung cancer Mother Breast cancer Sister Breast cancer Surgical History Amputated toe of left foot H/O mastectomy H/O: hammer toe correction History of colonoscopy (~2019) History of excision of lesion History of hysterectomy History of oral surgery S/P AAA (abdominal aortic aneurysm) repair S/P breast lumpectomy Social History household members: spouse Smoking Status: Former smoker quit date: 03/15/12 pack-years: 39 alcohol intake: current alcohol intake frequency: a few times a week Alcohol type: beer and wine substance use type: does not use ROS <JACINTO [place] - Last Filed: 07/02/23 15:48> ROS ED ROS Narrative Constitutional: Negative for fever, chills, malaise. CVS: Negative for palpitations, chest pain, syncope. Respiratory: Negative for shortness of breath, cough. GI: Negative for abdominal pain, nausea, vomiting, melena, hematochezia. : Negative for dysuria, frequency. Neuro: Negative for headache. EXAM <JACITNO [place] - Last Filed: 07/02/23 15:48> Physical Exam Narrative Exam Narrative: CONST: Patient sitting in no acute distress. EYES: Normal inspection. ENT: Normal inspection, moist mucous membranes. NECK: Normal inspection. RESP: No respiratory distress, CTAB. CVS: Regular rate and rhythm, no murmur, no gallop. ABD: Soft and nontender, no guarding or rebound, nondistended. SKIN: Color normal, no rash, warm, dry, intact. EXTREMITIES: Normal appearance, no pedal edema. NEURO: Alert and answering questions appropriately. 5/5 upper and lower extremity strength, normal sensation, no drift, normal finger-nose bilaterally. PSYCH: Normal affect. Const Vital Signs: 07/02/23 12:36 07/02/23 14:35 07/02/23 14:50 Temperature 97 F L Temperature Source Temporal Pulse Rate 82 86 Respiratory Rate 18 16 Respiratory Effort Normal Non-Labored Respiratory Depth Normal Respiratory Pattern Normal Blood Pressure 116/58 L 117/61 Blood Pressure Mean 77 79 Pulse Ox 95 93 Oxygen Delivery Method Room Air Room Air Room Air <Dr. Joo Wynne DO - Last Filed: 07/02/23 16:18> Physical Exam Const Vital Signs: 07/02/23 12:36 07/02/23 14:35 07/02/23 14:50 Temperature 97 F L Temperature Source Temporal Pulse Rate 82 86 Respiratory Rate 18 16 Respiratory Effort Normal Non-Labored Respiratory Depth Normal Respiratory Pattern Normal Blood Pressure 116/58 L 117/61 Blood Pressure Mean 77 79 Pulse Ox 95 93 Oxygen Delivery Method Room Air Room Air Room Air [facility] <JACINTO [place] - Last Filed: 07/02/23 15:48> [facility] Narrative Medical decision making narrative: History gathered from: Patient, spouse Patient fell 3 times this morning with no obvious injuries. She states she has poor balance at baseline and uses a walker but her left leg gives out causing her to fall. She is awake alert with stable vital signs. She is neurologically intact and has no injuries. Workup shows white count of 11.2 and acute kidney injury with BUN of 31, creatinine 2.45 (previously 1.42). Potassium is elevated at 5.7. EKG is sinus rhythm with no hyperkalemic changes. She denies dehydration or urinary symptoms so not sure what caused her EULALIO. She was ordered IV fluids. Urinalysis has leukocyte esterase and over 100 WBCs and was sent for culture. Last urine culture grew E. coli sensitive to Rocephin so she was given a dose in the ED. Patient denied hitting her head however with 3 falls on anticoagulation a CT scan of the brain was obtained and shows no acute findings. Case will be discussed with the hospitalist for admission. Lab Data Attestation: I reviewed the patient's lab results. Labs: Laboratory Results - last 24 hr 07/02/23 07/02/23 12:55 13:58 WBC 11.2 H RBC 4.35 Hgb 13.5 Hct 42.5 MCV 97.7 MCH 31.0 MCHC 31.8 L RDW Std Deviation 54.4 H RDW Coeff of Blanca 15.4 H Plt Count 341 MPV 9.3 Immature Gran % (Auto) 1.700 H Neut % (Auto) 77.8 H Lymph % (Auto) 9.6 L [place] % (Auto) 10.0 Eos % (Auto) 0.5 Baso % (Auto) 0.4 Absolute Neuts (auto) 8.7 H Absolute Lymphs (auto) 1.07 Nucleated RBC % 0 PT 22.1 H INR 2.0 Sodium 137 Potassium 5.7 H Chloride 106 Carbon Dioxide 26.0 Anion Gap 5 BUN 31 H Creatinine 2.45 H Est GFR (MDRD) Af Amer 25 L Est GFR (MDRD) Non-Af 21 L BUN/Creatinine Ratio 12.7 Glucose 96 Calcium 9.4 Total Bilirubin 0.50 AST 45 H ALT 24 Alkaline Phosphatase 102 Total Protein 7.5 Albumin 3.2 Globulin 4.3 H Albumin/Globulin Ratio 0.7 L Urine Color Yellow Urine Clarity Sl. Cloudy Urine pH 6.5 Ur Specific Burt 1.010 Urine Protein 100 H Urine Glucose (UA) Normal Urine Ketones Negative Urine Occult Blood 10 H Urine Nitrite Negative Urine Bilirubin Negative Urine Urobilinogen Normal Ur Leukocyte Esterase 100 H Urine RBC 0 SEEN Urine WBC >100 SEEN Ur Squamous Epith Cells 0-5 SEEN Urine Bacteria 0 SEEN Urine Mucus 0 SEEN POC Glucose 98 Radiography Diagnostic Testing: Clinical Impression(s) from Imaging Studies Brain CT 07/02/23 13:20 IMPRESSION: Chronic involutional changes of the brain. Stable old lacunar infarct in the left basal ganglia. Electronically Signed: Joseph Ott MD at 14:06 EDT , EKG Initial EKG: Attestation: I personally reviewed and interpreted this EKG as follows: Interpretation: Sinus Rhythm Comments: Normal sinus rhythm 81 bpm Left bundle branch block No peaked T waves <Dr. Joo Wynne, DO - Last Filed: 07/02/23 16:18> MDM MDM Narrative Medical decision making narrative: History gathered from: Patient, spouse Patient fell 3 times this morning with no obvious injuries. She states she has poor balance at baseline and uses a walker but her left leg gives out causing her to fall. She is awake alert with stable vital signs. She is neurologically intact and has no injuries. Workup shows white count of 11.2 and acute kidney injury with BUN of 31, creatinine 2.45 (previously 1.42). Potassium is elevated at 5.7. EKG is sinus rhythm with no hyperkalemic changes. She denies dehydration or urinary symptoms so not sure what caused her EULALIO. She was ordered IV fluids. Urinalysis has leukocyte esterase and over 100 WBCs and was sent for culture. Last urine culture grew E. coli sensitive to Rocephin so she was given a dose in the ED. Patient denied hitting her head however with 3 falls on anticoagulation a CT scan of the brain was obtained and shows no acute findings. Case will be discussed with the hospitalist for admission. I have personally performed a face to face assessment of the patient and have reviewed the JANNETH Note. I performed a substantive portion of the visit including all aspects of the following. My light findings include: History is 72-year-old female recently admitted with falls states she was doing well for the past couple of weeks and then had 3 falls today. She notes right leg significant giving out. She states she did not hit her head. Exam is no significant outward signs of trauma. Patient appears in no acute distress. She is alert. Medical Decison Making patient has evidence of an EULALIO. Head CT is negative. Questionable UTI. Recently treated for 1 and grew out E. coli again with greater than 100 white blood cells however no bacteria and no nitrates. We can send this for culture again. Give a dose of Rocephin. Plan for admission History & Record Review Discussion w/independent historian: Patient and Family Lab Data Labs: Laboratory Results - last 24 hr 07/02/23 07/02/23 12:55 13:58 WBC 11.2 H RBC 4.35 Hgb 13.5 Hct 42.5 MCV 97.7 MCH 31.0 MCHC 31.8 L RDW Std Deviation 54.4 H RDW Coeff of Blanca 15.4 H Plt Count 341 MPV 9.3 Immature Gran % (Auto) 1.700 H Neut % (Auto) 77.8 H Lymph % (Auto) 9.6 L [place] % (Auto) 10.0 Eos % (Auto) 0.5 Baso % (Auto) 0.4 Absolute Neuts (auto) 8.7 H Absolute Lymphs (auto) 1.07 Nucleated RBC % 0 PT 22.1 H INR 2.0 Sodium 137 Potassium 5.7 H Chloride 106 Carbon Dioxide 26.0 Anion Gap 5 BUN 31 H Creatinine 2.45 H Est GFR (MDRD) Af Amer 25 L Est GFR (MDRD) Non-Af 21 L BUN/Creatinine Ratio 12.7 Glucose 96 Calcium 9.4 Total Bilirubin 0.50 AST 45 H ALT 24 Alkaline Phosphatase 102 Total Protein 7.5 Albumin 3.2 Globulin 4.3 H Albumin/Globulin Ratio 0.7 L Urine Color Yellow Urine Clarity Sl. Cloudy Urine pH 6.5 Ur Specific Burt 1.010 Urine Protein 100 H Urine Glucose (UA) Normal Urine Ketones Negative Urine Occult Blood 10 H Urine Nitrite Negative Urine Bilirubin Negative Urine Urobilinogen Normal Ur Leukocyte Esterase 100 H Urine RBC 0 SEEN Urine WBC >100 SEEN Ur Squamous Epith Cells 0-5 SEEN Urine Bacteria 0 SEEN Urine Mucus 0 SEEN POC Glucose 98 Radiography Diagnostic Testing: Clinical Impression(s) from Imaging Studies Brain CT 07/02/23 13:20 IMPRESSION: Chronic involutional changes of the brain. Stable old lacunar infarct in the left basal ganglia. Electronically Signed: Joseph Ott MD at 14:06 EDT , Management Discussion w/another healthcare provider: Hospitalist Discharge Plan Dx/Rx/DC Orders Clinical Impression: Acute kidney injury, Recurrent falls, Pyuria Disposition Disposition: Acute Care Hospital [facility] Discharge Date/Time: 07/02/23 16:12
--- NOTE | 2023-07-02 13:33 | EKG12_ITS ---
Test Reason : FALL Blood Pressure : / mmHG Vent. Rate : 081 BPM Atrial Rate : 081 BPM P-R Int : 186 ms QRS Dur : 124 ms QT Int : 442 ms P-R-T Axes : 035 -19 075 degrees QTc Int : 513 ms Normal sinus rhythm Left bundle branch block Abnormal ECG Poor date Confirmed by Erwin Lewis ([id number]), sports editor SHIRA SON ([id number]) on 07/05/2023 2:18:37 PM Referred By: Confirmed By:Erwin Lewis
[2023-07-02] MEDS: Dextrose 50%-Water 25 GM/50 ML DISP.SYRIN IV (14:02)
[2023-07-02] MEDS: 0.9% Normal Saline (1000mL) 1,000 ML 999 ML IV (14:02)
[2023-07-02] MEDS: Insulin Lispro 10 UNIT in Syringe 0 ML 6 UNIT IV (14:02)
[2023-07-02 14:17] LABS: Bedside Glucose 98 mg/dL (74-106)
--- NOTE | 2023-07-02 14:38 | PCM.HP.STD ---
HPI - General General Date of Admission: 07/02/23 Date of Service: 07/02/23 Chief Complaint: Frequent falls, adult FTT. HPI Narrative The patient is a 72 y/o F w/ PMHx: CKD stage II, HFpEF, HTN, HLD, Hx CVA, Hx L sided breast CA ductal carcinoma, Hx NSCL CA with metastatic disease, PAF, Former tobacco use, Obesity, recent discharged 06/19/2023 following evaluation for strokelike symptoms with evidence of subacute to old infarct in the left basal ganglia, acute heart failure exacerbation as well as complicated UTI who now re-presents to the [facility] ED on 07/02/23 with history of ongoing debility, unsteady gait despite usage of a walker with frequent falls including 3 alone on morning of day of presentation twice in the bathroom and once in the kitchen with ongoing leg, left greater than right weakness with no head trauma or loss of consciousness and ability to get up after these falls but they have become more pronounced and she is unable to safely take care of herself in addition to the fact she is on chronic Coumadin for atrial fibrillation prompting eventual ED evaluation. Workup in the ED included T97, heart rate 82, BP 160/58, respiratory rate 18, 95% on room air, CBC with WBC 11.2, human 13.5, MCV 97.7, platelet 341 with left shift, CMP with potassium 5.7 noted to be moderately hemolyzed, BUN/creatinine 31/2.45, GFR 21, urinalysis with protein 100, occult blood 10, nitrate negative, leukocyte esterase 100 with greater than 100 urine WBCs with no urine bacteria demonstrated, urine culture pending per ED, blood culture pending per ED, CT of the brain with chronic involutional changes, stable old lacunar infarct in the left basal ganglia, EKG with sinus rhythm with no acute evidence of ischemia nor peaked T waves. Patient does state that medication saeed she recently started methenamine but no other specific medication changes. 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 Obesity Oral candidiasis Prerenal azotemia UTI (urinary tract infection) UTI (urinary tract infection) Vitamin D deficiency Weakness Wears dentures Wears glasses Home Medications gabapentin 300 mg capsule 300 mg PO QHS Pain 09/03/22 [History Last Taken 07/01/23] metoprolol succinate 50 mg tablet,extended release 24 hr 50 mg PO DAILY Cardiac 12/04/22 [History Last Taken 07/02/23] amiodarone 200 mg tablet 200 mg PO DAILY #90 tabs 01/12/23 [Rx Last Taken 07/02/23] allopurinol 100 mg tablet 100 mg PO DAILY Cardiac 02/08/23 [History Last Taken 07/02/23] gabapentin 100 mg capsule 100 mg PO DAILY Artheritis Pain 06/16/23 [History Last Taken 07/02/23] valacyclovir 1 gram tablet 1,000 mg PO TID Eye Infection 06/16/23 [History Last Taken 07/02/23] potassium chloride 20 mEq tablet,extended release(part/cryst) (Klor-Con M) 20 meq PO DAILY #30 tabs 06/19/23 [Rx Last Taken 07/02/23] ascorbic acid (vitamin C) 500 mg tablet 500 mg PO BID 07/02/23 [History Last Taken 07/02/23] methenamine hippurate 1 gram tablet 1 g PO BID 07/02/23 [History Last Taken 07/02/23] warfarin 4 mg tablet 4 mg PO DAILY 07/02/23 [History Last Taken 07/02/23] Allergy/AdvReac Type Severity Reaction Status Date / Time No Known Allergies Allergy Verified 07/02/23 12:36 Family History Father , 58 Lung cancer Mother Breast cancer Sister Breast cancer Surgical History Amputated toe of left foot H/O mastectomy H/O: hammer toe correction History of colonoscopy (~2019) History of excision of lesion History of hysterectomy History of oral surgery S/P AAA (abdominal aortic aneurysm) repair S/P breast lumpectomy Social History household members: spouse Smoking Status: Former smoker quit date: 03/15/12 pack-years: 39 alcohol intake: current alcohol intake frequency: a few times a week Alcohol type: beer and wine substance use type: does not use ROS ROS Narrative Admission Review of Systems: CONSTITUTIONAL: No weight loss, fever, chills, + weakness or fatigue. HEENT: + Recent history of HSV eye infection, both eyes well-appearing with no blisters or lesions noted on the external lids. Eyes: No visual loss, blurred vision, double vision or yellow sclerae. Ears, Nose, Throat: No hearing loss, sneezing, congestion, runny nose or sore throat. SKIN: No rash or itching, lesions, wounds. CARDIOVASCULAR: No chest pain, chest pressure or chest discomfort, palpitations, edema, orthopnea, syncopal events. RESPIRATORY: No shortness of breath, cough or sputum, wheezing, hemoptysis. GASTROINTESTINAL: No anorexia, nausea, vomiting or diarrhea, abdominal pain, melena, BRBPR. GENITOURINARY: No dysuria, frequency, urgency or retention. NEUROLOGICAL: + Frequent falls and gait instability. No headache, dizziness, syncope, paralysis, ataxia, numbness or tingling in the extremities, focal weakness, change in bowel or bladder control, seizure. MUSCULOSKELETAL: + muscle, back pain, joint pain or stiffness. HEMATOLOGIC: + History of anemia. + Easy bleeding/bruising. LYMPHATICS: No enlarged nodes. No history of splenectomy. PSYCHIATRIC: No history of depression or anxiety. ENDOCRINOLOGIC: No reports of sweating, cold or heat intolerance. No polyuria or polydipsia. ALLERGIES: No history of asthma, hives, eczema or rhinitis. Vital Signs Vital Signs Vital Signs: 07/02/23 12:36 Temperature 97 F L Temperature Source Temporal Pulse Rate 82 Respiratory Rate 18 Blood Pressure 116/58 L Blood Pressure Mean 77 Pulse Ox 95 Oxygen Delivery Method Room Air Physical Exam Narrative Physical Examination: General: Awake, alert, oriented x 3 and cooperative, seated upright in the ED bed, fatigued. Skin: Normal color, normal turgor, no icterus, no cyanosis except occasional staged ecchymoses. HEENT: AT/NC, EOMI, PERRLA, mildly dry MM, mildly swollen lower lip with a small abrasion, no carotid bruits or JVD noted. Lungs: Mildly diminished, greater bases, appropriate effort, no rales, ronchi or wheezing. Heart: Regular rate and rhythm; no gallop, rub audible. Abdomen: Soft, NTTP, ND, mildly hyperactive BS, no appreciated HSM. Extremities: No cyanosis, no clubbing, no marked peripheral edema noted. Neurological: Patient awake, alert, oriented as noted, cognitive function intact; pupils equally reactive to light and accommodation, cranial nerves grossly normal, moving all 4 extremities, no focal specific deficits appreciated, strength moderately globally decreased. Psychiatric: Affect appears fatigued otherwise normal, no acute evidence of depressive or anxiety feelings. Results Lab / Micro Data 07/02/23 12:55 07/02/23 12:55 Labs: Laboratory Results - last 24 hr 07/02/23 12:55: WBC 11.2 H, RBC 4.35, Hgb 13.5, Hct 42.5, MCV 97.7, MCH 31.0, MCHC 31.8 L, RDW Std Deviation 54.4 H, RDW Coeff of Blanca 15.4 H, Plt Count 341, MPV 9.3, Immature Gran % (Auto) 1.700 H, Neut % (Auto) 77.8 H, Lymph % (Auto) 9.6 L, [place] % (Auto) 10.0, Eos % (Auto) 0.5, Baso % (Auto) 0.4, Absolute Neuts (auto) 8.7 H, Absolute Lymphs (auto) 1.07, Nucleated RBC % 0, Sodium 137, Potassium 5.7 H, Chloride 106, Carbon Dioxide 26.0, Anion Gap 5, BUN 31 H, Creatinine 2.45 H, Est GFR (MDRD) Af Amer 25 L, Est GFR (MDRD) Non-Af 21 L, BUN/Creatinine Ratio 12.7, Glucose 96, Calcium 9.4, Total Bilirubin 0.50, AST 45 H, ALT 24, Alkaline Phosphatase 102, Total Protein 7.5, Albumin 3.2, Globulin 4.3 H, Albumin/Globulin Ratio 0.7 L, Urine Color Yellow, Urine Clarity Sl. Cloudy, Urine pH 6.5, Ur Specific [place] 1.010, Urine Protein 100 H, Urine Glucose (UA) Normal, Urine Ketones Negative, Urine Occult Blood 10 H, Urine Nitrite Negative, Urine Bilirubin Negative, Urine Urobilinogen Normal, Ur Leukocyte Esterase 100 H, Urine RBC 0 SEEN, Urine WBC >100 SEEN, Ur Squamous Epith Cells 0-5 SEEN, Urine Bacteria 0 SEEN, Urine Mucus 0 SEEN 07/02/23 13:58: POC Glucose 98 Imaging Radiology Impression Brain CT 07/02/23 13:20 IMPRESSION: Chronic involutional changes of the brain. Stable old lacunar infarct in the left basal ganglia. Electronically Signed: Joseph Ott MD at 14:06 EDT , Assessment & Plan Assessment/Plan (1) Acute kidney injury: PLAN: Plan The patient is a 72 y/o F w/ PMHx: CKD stage II, HFpEF, HTN, HLD, Hx CVA, Hx L sided breast CA ductal carcinoma, Hx NSCL CA with metastatic disease, PAF, Former tobacco use, Obesity, recent discharged 06/19/2023 following evaluation for strokelike symptoms with evidence of subacute to old infarct in the left basal ganglia, acute heart failure exacerbation as well as complicated UTI who now re-presents to the [facility] ED on 07/02/23 with history of ongoing debility, unsteady gait despite usage of a walker with frequent falls including 3 alone on morning of day of presentation twice in the bathroom and once in the kitchen with ongoing leg, left greater than right weakness with no head trauma or loss of consciousness and ability to get up after these falls but they have become more pronounced and she is unable to safely take care of herself in addition to the fact she is on chronic Coumadin for atrial fibrillation prompting eventual ED evaluation. #1. Adult FTT with notable Mechanical Falls, Debility possibly secondary to #2 and complicated by recent diagnosis #3: Will admit to [facility], maintain on fall precautions, possibly related with #2 and possibly related with recent start of methenamine, will continue evaluation and treatment of EULALIO as noted, hold nephrotoxic medications, judiciously hydrate, PT/OT/CM consultation for discharge planning although patient is not amenable to SNF at this time. #2. Acute kidney injury on CKD stage II with incidentally noted Pyuria: Unclear etiology, possibly medication related, admission BUN/Cr 31/2.45, prior baseline creatinine noted to be primarily 0.7-0.8 up until 05/12/2023 however following admission patient had creatinine rise with acute kidney injury with 06/16/2023 creatinine 2.36 which had been improving but it started to rise again. Will judiciously hydrate, hold nephrotoxic medications (methenamine recently started outpatient per her and report, also recently on high-dose valacyclovir which will be continued but renal dosing requested) and repeat chemistry in AM. Will request renal ultrasound and FeNa assessment as well as Nephrology evaluation given recurrence and unclear etiology. ED did administer IV Rocephin although UA not marked appearing, will continue IV rocephin while awaiting UCx to be cautious. Procalcitonin requested. #3. Recent subacute to old infarction left basal ganglia, initial concerns for intracranial hemorrhage however this had been ruled out: Recent presentation with CT imaging x 2 with no evidence of bleed, MRI of the brain with atrophy and chronic small vessel ischemic changes, subacute old lacunar infarct in the left basal ganglia, will continue coumadin with INR trending, statin, HTN regimen. #4. Recent Acute E. Coli UTI, Resolved: Prior admission with urinary tract infection with culture growth of E. coli sensitive to Rocephin to which patient was treated, resolved. #5. Recent Acute HFpEF exacerbation, Resolved: Prior admission with chest x-ray with small to moderate left-sided pleural effusion with BNP greater than 500 with echocardiogram 06/18/2023 echocardiogram with mild concentric LVH, LVEF 60%, stage I diastolic dysfunction with oxygen requirements initially eventually weaned with diuresis and eventual resolution. #6. PAF: 06/18/2023 echocardiogram with mild concentric LVH, LVEF 60%, stage I diastolic dysfunction. Will continue patient home amiodarone, metoprolol with Coumadin with INR trending. #7. Carotid disease: Recent presentation with stroke evaluation with mild less than 50% stenosis right extracranial internal carotid and moderate 50 to 69% stenosis of the left extracranial carotid with planned follow-up outpatient with vascular surgery, maintained on aspirin, statin. #8. History non-small cell lung cancer with metastases to intrathoracic lymph nodes: Patient treated with both chemotherapy and radiation reportedly, last dose of chemotherapy October 2022, unclear remission status, encourage continued outpatient follow-up with oncology as previously arranged. #9. History of left-sided ductal carcinoma: Status posttreatment, unclear exact interventions, noted ER and SC positive, encourage continued outpatient follow-up as previously arranged, reportedly in remission. #10. Hypertension: Continue home regimen including metoprolol, PRN hydralazine. #11. Hyperlipidemia: Continue home statin regimen. #12. Former tobacco use: Encourage continued tobacco cessation. #13. DVT prophylaxis: Will continue Coumadin with INR trending. #14. CODE status: Patient RAFAL is her and living will is currently in place. Confirmed status remains DNR-CCA, no intubation. Charges/Coding Visit Charges Inpatient E&M: 96036 Init Hosp L3
[2023-07-02] MEDS: Ceftriaxone 1 GM/50 ML BAG IV (14:55)
[2023-07-02 15:25] LABS: Prothrombin Time (Protime)PT. 22.1 SECONDS (11.7-14.9)
--- NOTE | 2023-07-02 16:24 | US_ITS ---
INDICATION: EULALIO EXAMINATION: Ultrasound US Kidney(s) complete (eg, kidneys and bladder) TECHNIQUE: Rosado scale and color doppler images were obtained of the kidneys. COMPARISON: Prior study dated: CT from 05/05/2023 FINDINGS: RIGHT KIDNEY: 10.1 x 5 x 6.5 cm. There is no hydronephrosis. No shadowing calculus, focal lesion or perinephric collection is demonstrated. LEFT KIDNEY: 10.6 x 5.8 x 5.3 cm. There is no hydronephrosis. No calculus. Simple cyst at the midpole measures 1.4 cm. No specific follow-up recommended. Small amount of perinephric fluid noted. URINARY BLADDER: No acute abnormality. Prevoid bladder volume of 180 mL. Bilateral ureteral jets are seen. US/Kidney and Bladder IMPRESSION: No hydronephrosis. Electronically Signed: Lopez Simpson MD at 22:27 EDT ,
[2023-07-02 17:42] LABS: Procalcitonin 0.26 ng/mL (0.00-0.09)
[2023-07-02] MEDS: 0.9% Normal Saline (1000mL) 1,000 ML 100 ML IV (18:23)
[2023-07-02] MEDS: 0.9% Saline Lock 10 ML Syringe IV (18:23)
[2023-07-02 18:47] LABS: Urine Sodium 54 mmol/L (Not Establ.)
[2023-07-02] MEDS: Gabapentin 300 MG Capsule PO (22:12)
[2023-07-02] MEDS: Atorvastatin Calcium 40 MG Tablet PO (22:12)
[2023-07-02] MEDS: Acyclovir 800 MG Tablet PO (22:13)
[2023-07-03 01:35] VITALS: BMI 26.9
[2023-07-03 05:00] VITALS: BP 108/50; PULSE 74; RESP 16; TEMP 36.8; O2SAT 94
[2023-07-03] MEDS: Acyclovir 800 MG Tablet PO ×3 (05:32→21:36)
[2023-07-03 06:36] LABS: Absolute Lymphocyte Count 0.94 X10^3/uL (0.83-4.51); Absolute Neutrophil Count 6.8 X10^3/uL (2.0-7.7); Basophil# 0.06 X10^3/uL; Basophil% 0.7 % (0-1); Eosinophil# 0.21 X10^3/uL; Eosinophils% 2.3 % (0-5); Hematocrit 35.9 % (37-47); Hemoglobin 11.2 g/dL (12.0-15.0); Lymphocyte # 0.94 X10^3/ul (0.83-4.51); Lymphocyte % 10.4 % (19-41); Mean Corp Hgb Conc 31.2 g/dL (32-36); Mean Corpuscular Hgb 30.3 pg (27.0-32.0); Mean Platelet Vol. 9.5 fl (6.2-12.0); Monocyte# 0.89 X10^3/uL; Monocyte% 9.9 % (0-10); NRBC Flagged by Analyzer 0 % (0-5); Neutrophil # 6.78 X10^3/uL (2.7-7.7); Neutrophil % 75.4 % (47-70); Platelet Count 309 K/mm3 (150-450); RBC Distribution Width CV 15.4 % (11.6-14.6); RBC Distribution Width SD 53.1 fl (35.1-43.9)
[2023-07-03 06:50] LABS: International Normalized Ratio 2.2; Prothrombin Time (Protime)PT. 24.5 SECONDS (11.7-14.9)
--- NOTE | 2023-07-03 07:04 | PN.HOSP_ITS ---
Reason for Visit Reason for Visit: Diagnoses Acute kidney failure, unspecified (07/02/23) Subjective Subjective Patient notes overnight no acute events and feels notably improved since day prior. She notes feeling less weak and more energized. is present and we did discuss that her renal function did improve but is not precisely back at her baseline. Discussed renal ultrasound being unremarkable and that urine had elevated white blood cell count but still awaiting urine culture to be cautious given recent presentation. Also discussed with patient still awaiting nephrology input given the fact that she has recently had a similar presentation and then again went home with normal function and returned again and acute kidney injury. She was initially reticent to remain but amenable to continued evaluation, judicious hydration again, nephrology evaluation and repeat renal function in the morning with plan at that time if continued improvement to likely discharge to home. Patient denies fevers, chills, nausea, emesis, abdom inal pain, chest pain or dyspnea. Objective Data Objective Data Vital Signs: Vital Signs Temp Pulse Resp BP Pulse Ox O2 Del Method 98.3 F 74 16 108/50 L 94 Room Air 07/03/23 05:00 07/03/23 05:00 07/03/23 05:00 07/03/23 05:00 07/03/23 05:00 07/03/23 05:00 Oxygen Delivery Method Room Air Weight: 151 lb 15.787 oz Body Mass Index (BMI) 26.9 Intake & Output: Intake and Output for Last 24 Hours 07/01/23 07/02/23 07/03/23 23:59 23:59 23:59 Intake Total 1050 / 1050 1150 / 1150 Output Total 300 / 300 Balance 750 / 750 1150 / 1150 Lab / Micro Data 07/03/23 06:13 07/03/23 06:13 Labs: Laboratory Results - last 24 hr 07/02/23 12:55: WBC 11.2 H, RBC 4.35, Hgb 13.5, Hct 42.5, MCV 97.7, MCH 31.0, MCHC 31.8 L, RDW Std Deviation 54.4 H, RDW Coeff of Blanca 15.4 H, Plt Count 341, MPV 9.3, Immature Gran % (Auto) 1.700 H, Neut % (Auto) 77.8 H, Lymph % (Auto) 9.6 L, [place] % (Auto) 10.0, Eos % (Auto) 0.5, Baso % (Auto) 0.4, Absolute Neuts (auto) 8.7 H, Absolute Lymphs (auto) 1.07, Nucleated RBC % 0, PT 22.1 H, INR 2.0, Sodium 137, Potassium 5.7 H, Chloride 106, Carbon Dioxide 26.0, Anion Gap 5, BUN 31 H, Creatinine 2.45 H, Est GFR (MDRD) Af Amer 25 L, Est GFR (MDRD) Non- Af 21 L, BUN/Creatinine Ratio 12.7, Glucose 96, Calcium 9.4, Total Bilirubin 0.50, AST 45 H, ALT 24, Alkaline Phosphatase 102, Total Protein 7.5, Albumin 3.2, Globulin 4.3 H, Albumin/Globulin Ratio 0.7 L, Urine Color Yellow, Urine Clarity Sl. Cloudy, Urine pH 6.5, Ur Specific Wall[place] 1.010, Urine Protein 100 H , Urine Glucose (UA) Normal, Urine Ketones Negative, Urine Occult Blood 10 H, Urine Nitrite Negative, Urine Bilirubin Negative, Urine Urobilinogen Normal, Ur Leukocyte Esterase 100 H, Urine RBC 0 SEEN, Urine WBC >100 SEEN, Ur Squamous Epith Cells 0-5 SEEN, Urine Bacteria 0 SEEN, Urine Mucus 0 SEEN 07/02/23 13:58: POC Glucose 98 07/02/23 16:47: Procalcitonin 0.26 H 07/02/23 18:25: Ur Random Sodium 54, Urine Creatinine 22.30 07/03/23 06:13: WBC 9.0, RBC 3.70 L, Hgb 11.2 L, Hct 35.9 L, MCV 97.0, MCH 30.3, MCHC 31.2 L, RDW Std Deviation 53.1 H, RDW Coeff of Blanca 15.4 H, Plt Count 309, MPV 9.5, Immature Gran % (Auto) 1.300 H, Neut % (Auto) 75.4 H, Lymph % (Auto) 10.4 L, [place] % (Auto) 9.9, Eos % (Auto) 2.3, Baso % (Auto) 0.7, Absolute Neuts (auto) 6.8, Absolute Lymphs (auto) 0.94, Nucleated RBC % 0, PT 24.5 H, INR 2.2 Radiography Diagnostic Testing: Radiology Impression Brain CT 07/02/23 13:20 IMPRESSION: Chronic involutional changes of the brain. Stable old lacunar infarct in the left basal ganglia. Electronically Signed: Joseph Ott MD at 14:06 EDT , Renal Ultrasound 07/02/23 16:24 IMPRESSION: No hydronephrosis. Electronically Signed: Lopez Simpson MD at 22:27 EDT , Physical Exam Narrative Physical Examination: General: Awake, alert, oriented x 3 and cooperative, seated upright in ED bedside chair, much more interactive, smiling, less fatigued. Skin: Normal color, normal turgor, no icterus, no cyanosis except occasional staged ecchymoses. HEENT: AT/NC, EOMI, PERRLA, MMM. Lungs: Mildly diminished, greater bases, appropriate effort, no rales, ronchi or wheezing. Heart: Regular rate and rhythm; no gallop, rub audible. Abdomen: Soft, NTTP, ND, normal BS. Extremities: No cyanosis, no clubbing, no marked peripheral edema noted. Neurological: Patient awake, alert, oriented as noted, cognitive function intact and more interactive; pupils equally reactive to light and accommodation, cranial nerves grossly normal, moving all 4 extremities, no focal specific deficits appreciated, strength improved, mildly to moderately globally decreased. Psychiatric: Affect appears more normal, interactive, smiling, no acute evidence of depressive or anxiety feelings. Assessment & Plan Assessment/Plan (1) Acute kidney injury: PLAN: Plan The patient is a 72 y/o F w/ PMHx: CKD stage II, HFpEF, HTN, HLD, Hx CVA, Hx L sided breast CA ductal carcinoma, Hx NSCL CA with metastatic disease, PAF, Former tobacco use, Obesity, recent discharged 06/19/2023 following evaluation for strokelike symptoms with evidence of subacute to old infarct in the left basal ganglia, acute heart failure exacerbation as well as complicated UTI who now re- presents to the [facility] [place] ED on 07/02/23 with history of ongoing debility, unsteady gait despite usage of a walker with frequent falls including 3 alone on morning of day of presentation twice in the bathroom and once in the kitchen with ongoing leg, left greater than right weakness with no head trauma or loss of consciousness and ability to get up after these falls but they have become more pronounced and she is unable to safely take care of herself in addition to the fact she is on chronic Coumadin for atrial fibrillation prompting eventual ED evaluation. #1. Adult FTT with notable Mechanical Falls, Debility possibly secondary to #2 and complicated by recent diagnosis #3: Admitted to [place], maintained on fall precautions, possibly related with #2 and possibly related with recent start of methenamine, will continue evaluation and treatment of EULALIO as noted, holding nephrotoxic medications, judiciously hydrating, PT/OT/CM consultation for discharge planning although patient is not amenable to SNF at this time. Suspect likely if renal function continues to improve discharge to home 07/04/2023 with potentially home health therapies versus outpatient therapies. #2. Acute kidney injury on CKD stage II with incidentally noted Pyuria/?Acute Complicated UTI w/ recent Hx as noted below: Unclear etiology, possibly medication related, admission BUN/Cr 31/2.45, prior baseline creatinine noted to be primarily 0.7-0.8 up until 05/12/2023 however following admission patient had creatinine rise with acute kidney injury with 06/16/2023 creatinine 2.36 which had been improving but it started to rise again. Patient judiciously hydrated, held nephrotoxic medications (methenamine recently started outpatient per her and report, also recently on high-dose valacyclovir which will be continued but renal dosing requested). Urine sodium 54, urine creatinine 22.30. Renal ult rasound with no evidence of any hydronephrosis or concerning findings. Given recurrence awaiting Nephrology evaluation. ED did administer IV Rocephin although UA not marked appearing, continued on IV rocephin while awaiting UCx to be cautious. Procalcitonin 0.26. 07/03/23 BUN/Cr 31/1.77, improved. At this point we will await urine culture, nephrology input and repeat renal function 07/04/2023 and if clinically stable and renal function continues to improve likely discharge to home at that time. #3. Recent subacute to old infarction left basal ganglia, initial concerns for intracranial hemorrhage however this had been ruled out: Recent presentation with CT imaging x 2 with no evidence of bleed, MRI of the brain with atrophy and chronic small vessel ischemic changes, subacute old lacunar infarct in the left basal ganglia, will continue coumadin with INR trending, 07/03/2023 INR 2.2, maintain on statin, continue HTN regimen. #4. Recent Acute E. Coli UTI, Resolved: Prior admission with urinary tract infection with culture growth of E. coli sensitive to Rocephin to which patient was treated, resolved. #5. Recent Acute HFpEF exacerbation, Resolved: Prior admission with chest x-ray with small to moderate left-sided pleural effusion with BNP greater than 500 with echocardiogram 06/18/2023 echocardiogram with mild concentric LVH, LVEF 60%, stage I diastolic dysfunction with oxygen requirements initially eventually weaned with diuresis and eventual resolution. #6. Normocytic anemia: 07/03/2023 hemoglobin 11.2, MCV 97, upon admission hemoglobin had been 13.5, from review of records has transiently dropped but primarily been 12-13, 07/03/2023 CBC with hemoglobin 11.2, MCV 97. #7. PAF: 06/18/2023 echocardiogram with mild concentric LVH, LVEF 60%, stage I diastolic dysfunction. Will continue patient home amiodarone, metoprolol with Coumadin with INR trending. 07/03/2023 INR 2.2. #8. Carotid disease: Recent presentation with stroke evaluation with mild less than 50% stenosis right extracranial internal carotid and moderate 50 to 69% stenosis of the left extracranial carotid with planned follow-up outpatient with vascular surgery, maintained on aspirin, statin. #9. History non-small cell lung cancer with metastases to intrathoracic lymph nodes: Patient treated with both chemotherapy and radiation reportedly, last dose of chemotherapy October 2022, unclear remission status, encourage continued outpatient follow-up with oncology as previously arranged. #10. History of left-sided ductal carcinoma: Status posttreatment, unclear exact interventions, noted ER and MT positive, encourage continued outpatient follow-up as previously arranged, reportedly in remission. #11. Hypertension: Continue home regimen including metoprolol, PRN hydralazine. #12. Hyperlipidemia: Continue home statin regimen. #13. Former tobacco use: Encourage continued tobacco cessation. #14. DVT prophylaxis: Will continue Coumadin with INR trending. 07/03/2023 INR 2.2. #15. CODE status: RAFAL is her and living will is currently in place. DNR-CCA, no intubation. Charges/Coding Visit Charges Inpatient E&M: 68860 Init Hosp L2
[2023-07-03 07:18] LABS: ALB/GLOB Ratio 0.7 RATIO (0.9-2.4); AST(SGOT) 20 U/L (15-37); Alanine Aminotransfer ALT/SGPT 19 U/L (13-56); Albumin, Serum 2.6 g/dL (3.2-5.0); Alkaline Phosphatase 89 U/L (45-117); Anion Gap 5 (5-15); BUN 31 mg/dL (7-18); BUN/Creat Ratio 17.5 RATIO (10-20); Calcium,Total 8.4 mg/dL (8.5-10.1); Chloride 111 mmol/L (98-107); Creatinine, Serum 1.77 mg/dL (0.55-1.02); EST Glomerular Filtration Rate 30 mL/min (>60); Est Glom Filt Rate - Afr Amer 36 mL/min (>60); Estimated Creatinine Clearance 26.37 ml/min; Globulin 3.6 g/dL (2.2-4.2); Glucose 92 mg/dL (74-106); Potassium 4.5 mmol/L (3.5-5.1); Protein, Total 6.2 g/dL (6.4-8.2); Sodium Level 139 mmol/L (136-145)
[2023-07-03 08:09] VITALS: O2SAT 95
[2023-07-03 09:33] VITALS: PULSE 78
[2023-07-03] MEDS: Allopurinol 100 MG Tablet PO (09:33)
[2023-07-03] MEDS: Metoprolol(XL)Succ 50 MG Tablet PO (09:33)
[2023-07-03] MEDS: Gabapentin 100 MG Capsule PO (09:33)
[2023-07-03] MEDS: Ceftriaxone 1 GM/50 ML BAG IV (09:33)
[2023-07-03] MEDS: Amiodarone 200 MG Tablet PO (09:33)
[2023-07-03] MEDS: 0.9% Normal Saline (1000mL) 1,000 ML 75 ML IV (09:37)
[2023-07-03] MEDS: 0.9% Saline Lock 10 ML Syringe IV ×2 (09:37→21:37)
--- NOTE | 2023-07-03 10:55 | CASEMGMT ---
RN CM Readmission Note Previous Admission: 06/15-06/19/2023 Diagnosis: EULALIO DC Disposition: Home with spouse and PCP follow up in 1-2 weeks Pt. was discharged home with spouse. Pt was discharged with new oxygen at 2L NC. Pt was DC with OP PT as she declined HHC. Current Admission: Admitted 07/02/2023 Current Diagnosis: EULALIO, Falls Met with patient bedside, spouse present with permission. Pt reports she had 3 falls prior to admission, that her ?legs just gave out?. Pt reports she was DC with oxygen at 2L NC through [employer] on her previous admission, but she has not worn it since her discharge and is not wearing oxygen currently. Pt reports she did have an OP PT appt, however it was not until 06/28 and she reports they are working with her insurance to see if additional sessions can be approved. DC PLAN: Pt wants to return home on discharge. Spoke with pt and spouse about HHC and SNF. Pt reports she does not want to go to SNF as she does not want to stay at a facility, even if only for a week. Pt is agreeable to HHC. Discussed with pt and spouse CM would follow up after PT/OT evaluations to further discuss. Mariela Tomlinson MSN, RN, CCM
--- NOTE | 2023-07-03 10:56 | CASEMGMT ---
Patient was provided a list of [facility] providers including quality and resource use data and consistent with the patient?s preferred geographic region, medical needs, and insurance network were provided from the [employer] Guide. Mariela Tomlinson MSN, RN, CCM
[2023-07-03 11:00] VITALS: BP 109/42; PULSE 78; RESP 16; TEMP 36.5; O2SAT 98; O2SAT 99
--- NOTE | 2023-07-03 14:51 | CASEMGMT ---
Addendum entered by Mariela Tomlinson 07/03/23 15:45: Met with pt and made her aware CM sent referrals however her PCP requires that she be seen in office before signing off on [facility]. Instructed pt to contact PCP on Wednesday AM to make an appt and inform PCP [facility] is needed. Pt understands and agreeable. Mariela IRVIN, RN, CCM Original Note: LUISA GONZALES followed up with pt on [facility]. Pt reports that she would like either [facility] or [facility]. Referral sent to [place] via [employer]. Call placed to [facility]. Mariela IRVIN, RN, CCM
[2023-07-03 17:00] VITALS: BP 135/53; PULSE 94; RESP 16; TEMP 36.4; O2SAT 96
--- NOTE | 2023-07-03 20:03 | CON.PCM.RE_ITS ---
Assessment & Plan Assessment/Plan (1) Acute kidney injury: PLAN: Acute kidney injury -Baseline serum creatinine in April was a 0.8 mg/dL -Since the beginning of June patient has had recurrent acute kidney injury serum creatinine ranges from 2.4 down to 1.2 mg/dL -Renal ultrasound shows no obstruction -Suspect this is secondary to hemodynamics in setting of a lower blood pressure -She is on amiodarone in addition to metoprolol -Urinalysis shows no hematuria -At this time continue with supportive care -Will give additional volume tonight at 75 cc of LR for 8 hours -BMP in the morning Thank you please call [phone] with any concerns (2) Hyperkalemia: PLAN: This is now resolved HPI Consult Data Date of Consult: 07/03/23 HPI Narrative Reason for Consultation: Acute kidney injury on chronic kidney disease HPI Narrative: OSMIN DAN, is a 72 F with underlying history of hypertension, dyslipidemia, CVA, heart failure with preserved ejection fraction in addition to NSCL cancer with metastatic disease, paroxysmal atrial fibrillation who was recently discharged from the hospital with subacute infarct involving the left b eloise ganglia in addition to a complicated UTI. Since her discharge from the hospital on June 19, 2023 she continues to feel weak and presented back to the hospital on July 01 due to a fall. On presentation she was found to have acute kidney injury with creatinine of 2.45 mg/dL potassium 5.7 mmol/L. She was admitted to the hospital for further evaluation nephrology was consulted. On today's encounter she feels well working with therapy hoping to get home. She denies any new medication, denies any dysuria or hematuria, she denies any use of NSAIDs at home. ON LICENSE OF [facility] Medical History (Updated 07/03/23 @ 20:[address] 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 Malignant neoplasm of unspecified site of right female breast 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 Obesity Oral candidiasis Prerenal azotemia UTI (urinary tract infection) UTI (urinary tract infection) Vitamin D deficiency Weakness Wears dentures Wears glasses Home Medications gabapentin 300 mg capsule 300 mg PO QHS Pain 09/03/22 [History Last Taken 07/01/23 22:00] metoprolol succinate 50 mg tablet,extended release 24 hr 50 mg PO DAILY Cardiac 12/04/22 [History Last Taken 07/02/23 08:00] amiodarone 200 mg tablet 200 mg PO DAILY #90 tabs 01/12/23 [Rx Last Taken 07/02/23 08:00] allopurinol 100 mg tablet 100 mg PO DAILY Cardiac 02/08/23 [History Last Taken 07/02/23 08:00 100 mg] gabapentin 100 mg capsule 100 mg PO DAILY Artheritis Pain 06/16/23 [History Last Taken 07/02/23 08:00] potassium chloride 20 mEq tablet,extended release(part/cryst) (Klor-Con M) 20 meq PO DAILY #30 tabs 06/19/23 [Rx Last Taken 07/02/23 08:00] ascorbic acid (vitamin C) 500 mg tablet 500 mg PO BID SUPPLEMENT 07/02/23 [History Last Taken 07/02/23 08:00] difluprednate 0.05 % eye drops 1 drp RIGHT EYE 4X/DAY DRY EYES 07/02/23 [History Last Taken Unknown] propylene glycol 0.6 % eye drops (Lubricant Eye (propylene glycol)) 1 drp RIGHT EYE Q6H PRN dry eyes 07/02/23 [History Last Taken 07/02/23 06:00] warfarin 4 mg tablet 4 mg PO DAILY BLOOD THINNER 07/02/23 [History Last Taken 07/02/23 08:00] valacyclovir 500 mg tablet 1,000 mg (2 x 500 mg) PO DAILY 10 days #20 tabs 07/03/23 [Rx Last Taken Unknown] Allergy/AdvReac Type Severity Reaction Status Date / Time No Known Allergies Allergy Verified 07/02/23 12:36 Family History Father , 58 Lung cancer Mother Breast cancer Sister Breast cancer Surgical History Amputated toe of left foot H/O mastectomy H/O: hammer toe correction History of colonoscopy (~2019) History of excision of lesion History of hysterectomy History of oral surgery S/P AAA (abdominal aortic aneurysm) repair S/P breast lumpectomy Social History household members: spouse Smoking Status: Former smoker quit date: 03/15/12 pack-years: 39 alcohol intake: current alcohol intake frequency: a few times a week Alcohol type: beer and wine substance use type: does not use ROS ROS Narrative 12 review of systems negative other than stated above Physical Exam Narrative Elderly woman awake and responsive answers questions appropriately Some facial droop Oral mucosa is moist S1-S2 regular Breath sounds diminished Abdomen soft nontender No peripheral edema No Santos Medical Records Data Attestation: I reviewed the patient's medical records Lab / Micro Data 07/03/23 06:13 07/03/23 06:13 Labs: Laboratory Results - last 24 hr 07/03/23 06:13: WBC 9.0, RBC 3.70 L, Hgb 11.2 L, Hct 35.9 L, MCV 97.0, MCH 30.3, MCHC 31.2 L, RDW Std Deviation 53.1 H, RDW Coeff of Blanca 15.4 H, Plt Count 309, MPV 9.5, Immature Gran % (Auto) 1.300 H, Neut % (Auto) 75.4 H, Lymph % (Auto) 10.4 L, [place] % (Auto) 9.9, Eos % (Auto) 2.3, Baso % (Auto) 0.7, Absolute Neuts (auto) 6.8, Absolute Lymphs (auto) 0.94, Nucleated RBC % 0, PT 24.5 H, INR 2.2, Sodium 139, Potassium 4.5, Chloride 111 H, Carbon Dioxide 23.0, Anion Gap 5, BUN 31 H, Creatinine 1.77 H, Estim Creat Clear Calc 26.37, Est GFR (MDRD) Af Amer 36 L, Est GFR (MDRD) Non-Af 30 L, BUN/Creatinine Ratio 17.5, Glucose 92, Calcium 8.4 L, Total Bilirubin 0.60, AST 20, ALT 19, Alkaline Phosphatase 89, Total Protein 6.2 L, Albumin 2.6 L, Globulin 3.6, Albumin/Globulin Ratio 0.7 L Micro: Microbiology 07/02/23 12:48 Urine, Random Urine Culture - Final Mixed Gram Pos & Gram Neg Org Imaging Radiology Impression Renal Ultrasound 07/02/23 16:24 IMPRESSION: No hydronephrosis. Electronically Signed: Lopez Simpson MD at 22:27 EDT ,
[2023-07-03 21:30] VITALS: BP 137/59; PULSE 78; RESP 16; TEMP 36.8; O2SAT 92
[2023-07-03] MEDS: Gabapentin 300 MG Capsule PO (21:36)
[2023-07-03] MEDS: Lactated Ringers 1,000 ML 75 ML IV (21:36)
[2023-07-03] MEDS: Atorvastatin Calcium 40 MG Tablet PO (21:36)
[2023-07-04 02:51] VITALS: BP 134/69; PULSE 84; RESP 18; TEMP 36.9; O2SAT 92
[2023-07-04 05:17] VITALS: BMI 26.9
[2023-07-04] MEDS: Acyclovir 800 MG Tablet PO (05:53)
--- NOTE | 2023-07-04 07:09 | PCM.PN.HOSP ---
Reason for Visit Reason for Visit: Diagnoses Hyperkalemia (07/02/23) Acute kidney failure, unspecified (07/02/23) Subjective Subjective Patient with no acute events overnight per self and per nursing report. Discussed that patient's renal function continues to improve and nephrology felt it was likely related with medications as well as potential mild dehydration. Discussed plan of care with patient to continue renally dosed valacyclovir and hold medication that causes kidney injury with repeat basic metabolic panel with primary care physician as well as follow-up with nephrology. Discussed that we will place information for follow-up with also urology. From discussion with charge nurse patient as far as home PT and OT needs to be evaluated apparently by her primary care before this is cleared thus recommended early follow-up. Discussed patient history of falls and noted that unfortunately her recent stroke may be contributing. Discussed that if this is an issue ongoing may need to consider de-escalation off of Coumadin therapy for her underlying paroxysmal A-fib if the risk becomes greater than the benefit. Patient denies fevers, chills, nausea, emesis, abdominal pain, chest pain or dyspnea. Objective Data Objective Data Vital Signs: Vital Signs Temp Pulse Resp BP Pulse Ox O2 Del Method 98.5 F 84 18 134/69 H 92 Room Air 07/04/23 02:51 07/04/23 02:51 07/04/23 02:51 07/04/23 02:51 07/04/23 02:51 07/04/23 02:52 Oxygen Delivery Method Room Air Weight: 151 lb 14.376 oz Body Mass Index (BMI) 26.9 Intake & Output: Intake and Output for Last 24 Hours 07/02/23 07/03/23 07/04/23 23:59 23:59 23:59 Intake Total 1050 / 1050 1700 / 1900 200 / 200 Output Total 300 / 300 1100 / 1500 400 / 400 Balance 750 / 750 600 / 400 -200 / -200 Lab / Micro Data 07/04/23 06:35 07/04/23 06:35 Labs: Laboratory Results - last 24 hr 07/03/23 06:13: Sodium 139, Potassium 4.5, Chloride 111 H, Carbon Dioxide 23.0, Anion Gap 5, BUN 31 H, Creatinine 1.77 H, Estim Creat Clear Calc 26.37, Est GFR (MDRD) Af Amer 36 L, Est GFR (MDRD) Non-Af 30 L, BUN/Creatinine Ratio 17.5, Glucose 92, Calcium 8.4 L, Total Bilirubin 0.60, AST 20, ALT 19, Alkaline Phosphatase 89, Total Protein 6.2 L, Albumin 2.6 L, Globulin 3.6, Albumin/Globulin Ratio 0.7 L Micro: Microbiology 07/02/23 12:48 Urine, Random Urine Culture - Final Mixed Gram Pos & Gram Neg Org Physical Exam Narrative Physical Examination: General: Awake, alert, oriented x 3 and cooperative, seated upright in MS bed, eating, notes feeling well. Skin: Normal color, normal turgor, no icterus, no cyanosis except occasional staged ecchymoses. HEENT: AT/NC, EOMI, PERRLA, MMM. Lungs: Mildly diminished, greater bases, appropriate effort, no rales, ronchi or wheezing. Heart: Regular rate and rhythm; no gallop, rub audible. Abdomen: Soft, NTTP, ND, normal BS. Extremities: No cyanosis, no clubbing, no marked peripheral edema noted. Neurological: Patient awake, alert, oriented as noted, cognitive function intact and more interactive; pupils equally reactive to light and accommodation, cranial nerves grossly normal, moving all 4 extremities, no focal deficits, strength continues to improve, mildly globally decreased. Psychiatric: Affect appears normal, no acute evidence of depressive or anxiety feelings. Assessment & Plan Assessment/Plan (1) Acute kidney injury: PLAN: Plan The patient is a 72 y/o F w/ PMHx: CKD stage II, HFpEF, HTN, HLD, Hx CVA, Hx L sided breast CA ductal carcinoma, Hx NSCL CA with metastatic disease, PAF, Former tobacco use, Obesity, recent discharged 06/19/2023 following evaluation for strokelike symptoms with evidence of subacute to old infarct in the left basal ganglia, acute heart failure exacerbation as well as complicated UTI who now re-presents to the [facility] ED on 07/02/23 with history of ongoing debility, unsteady gait despite usage of a walker with frequent falls including 3 alone on morning of day of presentation twice in the bathroom and once in the kitchen with ongoing leg, left greater than right weakness with no head trauma or loss of consciousness and ability to get up after these falls but they have become more pronounced and she is unable to safely take care of herself in addition to the fact she is on chronic Coumadin for atrial fibrillation prompting eventual ED evaluation. #1. Adult FTT with notable Mechanical Falls, Debility possibly secondary to #2 and complicated by recent diagnosis #3: Admitted to MS, maintained on fall precautions, possibly related with #2 and possibly related with recent start of methenamine, will continue evaluation and treatment of EULALIO as noted, holding nephrotoxic medications, judiciously hydrating, PT/OT/CM consultation for discharge planning although patient is not amenable to SNF at this time. From discussion with charge nurse patient will need to see primary care physician prior to set up with home physical and Occupational Therapy. Discussed plan of care with patient given 07/04/2023 renal function BUN/creatinine 24/1.35 with continued improvement plan for discharge to home. Discussed patient fall history and concern it may be related with her recent stroke and discussed that at some point if risk is greater than benefit may need to get discontinue Coumadin however this is difficult given it increases her stroke risk cannot be chronically anticoagulated. #2. Acute kidney injury on CKD stage II with incidentally noted Pyuria/?Acute Complicated UTI w/ recent Hx as noted below: Unclear etiology, possibly medication related, admission BUN/Cr 31/2.45, prior baseline creatinine noted to be primarily 0.7-0.8 up until 05/12/2023 however following admission patient had creatinine rise with acute kidney injury with 06/16/2023 creatinine 2.36 which had been improving but it started to rise again. Patient judiciously hydrated, held nephrotoxic medications (methenamine recently started outpatient per her and report, also recently on high-dose valacyclovir which will be continued but renal dosing requested). Urine sodium 54, urine creatinine 22.30. Renal ultrasound with no evidence of any hydronephrosis or concerning findings. Given recurrence awaiting Nephrology evaluation. ED did administer IV Rocephin although UA not marked appearing, continued on IV rocephin while awaiting UCx to be cautious. Procalcitonin 0.26. 07/03/23 BUN/Cr 31/1.77, improved--> 07/04/2023 BUN/creatinine 24/1.35, GFR 41, continues to improve toward baseline. As noted we will plan discharge to home with early follow-up with primary care physician with repeat basic metabolic at that time as well as follow-up with nephrology. Discussed need for medication alterations with patient and her . #3. Recent subacute to old infarction left basal ganglia, initial concerns for intracranial hemorrhage however this had been ruled out: Recent presentation with CT imaging x 2 with no evidence of bleed, MRI of the brain with atrophy and chronic small vessel ischemic changes, subacute old lacunar infarct in the left basal ganglia, will continue coumadin with INR trending, 07/04/2023 INR 2.0, maintain on statin, continue HTN regimen. #4. Recent Acute E. Coli UTI, Resolved: Prior admission with urinary tract infection with culture growth of E. coli sensitive to Rocephin to which patient was treated, resolved. #5. Recent Acute HFpEF exacerbation, Resolved: Prior admission with chest x-ray with small to moderate left-sided pleural effusion with BNP greater than 500 with echocardiogram 06/18/2023 echocardiogram with mild concentric LVH, LVEF 60%, stage I diastolic dysfunction with oxygen requirements initially eventually weaned with diuresis and eventual resolution. #6. Normocytic anemia: 07/03/2023 hemoglobin 11.2, MCV 97, upon admission hemoglobin had been 13.5, from review of records has transiently dropped but primarily been 12-13, 07/04/2023 CBC with hemoglobin 11.2, MCV 95.9. #7. PAF: 06/18/2023 echocardiogram with mild concentric LVH, LVEF 60%, stage I diastolic dysfunction. Will continue patient home amiodarone, metoprolol with Coumadin with INR trending. 07/04/2023 INR 2.0. #8. Carotid disease: Recent presentation with stroke evaluation with mild less than 50% stenosis right extracranial internal carotid and moderate 50 to 69% stenosis of the left extracranial carotid with planned follow-up outpatient with vascular surgery, maintained on aspirin, statin. #9. History non-small cell lung cancer with metastases to intrathoracic lymph nodes: Patient treated with both chemotherapy and radiation reportedly, last dose of chemotherapy October 2022, unclear remission status, encourage continued outpatient follow-up with oncology as previously arranged. #10. History of left-sided ductal carcinoma: Status posttreatment, unclear exact interventions, noted ER and SC positive, encourage continued outpatient follow-up as previously arranged, reportedly in remission. #11. Hypertension: Continue home regimen including metoprolol, PRN hydralazine. #12. Hyperlipidemia: Continue home statin regimen. #13. Former tobacco use: Encourage continued tobacco cessation. #14. DVT prophylaxis: Will continue Coumadin with INR trending. 07/04/2023 INR 2.0. #15. CODE status: RAFAL is her and living will is currently in place. DNR-CCA, no intubation. Charges/Coding Visit Charges Inpatient E&M: 49380 Subs Hosp L2
[2023-07-04 07:37] VITALS: O2SAT 96
[2023-07-04 07:40] LABS: Absolute Lymphocyte Count 0.93 X10^3/uL (0.83-4.51); Absolute Neutrophil Count 6.7 X10^3/uL (2.0-7.7); Basophil# 0.07 X10^3/uL; Basophil% 0.8 % (0-1); Eosinophil# 0.26 X10^3/uL; Eosinophils% 2.9 % (0-5); Hematocrit 34.9 % (37-47); Hemoglobin 11.2 g/dL (12.0-15.0); Lymphocyte # 0.93 X10^3/ul (0.83-4.51); Lymphocyte % 10.4 % (19-41); Mean Corp Hgb Conc 32.1 g/dL (32-36); Mean Corpuscular Hgb 30.8 pg (27.0-32.0); Mean Corpuscular Volume 95.9 fL (81-99); Mean Platelet Vol. 9.8 fl (6.2-12.0); Monocyte# 0.86 X10^3/uL; Monocyte% 9.6 % (0-10); NRBC Flagged by Analyzer 0 % (0-5); Neutrophil # 6.71 X10^3/uL (2.7-7.7); Neutrophil % 74.8 % (47-70); Platelet Count 316 K/mm3 (150-450); RBC Distribution Width CV 15.4 % (11.6-14.6); RBC Distribution Width SD 52.9 fl (35.1-43.9); Red Blood Count 3.64 M/mm3 (4.2-5.4)
[2023-07-04 07:51] LABS: ALB/GLOB Ratio 0.7 RATIO (0.9-2.4); AST(SGOT) 19 U/L (15-37); Alanine Aminotransfer ALT/SGPT 19 U/L (13-56); Albumin, Serum 2.6 g/dL (3.2-5.0); Alkaline Phosphatase 91 U/L (45-117); Anion Gap 6 (5-15); BUN 24 mg/dL (7-18); BUN/Creat Ratio 17.8 RATIO (10-20); Calcium,Total 8.6 mg/dL (8.5-10.1); Chloride 111 mmol/L (98-107); Creatinine, Serum 1.35 mg/dL (0.55-1.02); EST Glomerular Filtration Rate 41 mL/min (>60); Est Glom Filt Rate - Afr Amer 49 mL/min (>60); Estimated Creatinine Clearance 34.57 ml/min; Globulin 3.7 g/dL (2.2-4.2); Glucose 119 mg/dL (74-106); Potassium 4.4 mmol/L (3.5-5.1); Protein, Total 6.3 g/dL (6.4-8.2); Sodium Level 141 mmol/L (136-145)
--- NOTE | 2023-07-04 08:10 | DCINST_ITS ---
Discharge Instructions Diet Discharge Diet: Low fat / Low cholesterol Activity Discharge Activity: Return to Normal Activity May resume sexual activity in: No Restrictions Weight Bearing Status: Weight bearing as tolerated Follow Up Care Test Results: Test results from this visit will be discussed in further detail at your follow- up appointment, if applicable. Discharge Plan Admission Admit Date/Time: 07/02/23 14:54 Primary Reason for Your Visit: Acute Kidney Injury, Increased Falls, Adult Failure to Thrive Attending Provider: Hetal Rodríguez Primary Care Provider: Walter Emanuel Chi Consulting Providers: Betty Wallace Instructions Patient Instructions: Urinary Tract Infections in Women, Kidney Problems, Acute Kidney Failure Dc Additional Instructions / Restrictions: DISCHARGE DIAGNOSES/INFORMATION AND DATA: #1. Acute kidney injury on CKD stage II with incidentally noted Pyuria BUT RULED OUT Acute Complicated UTI (Urine culture resulted unremarkable), possibly medication related: --Admission BUN/Cr 31/2.45, prior baseline creatinine noted to be primarily 0.7- 0.8 up until 05/12/2023 however following admission patient had creatinine rise with acute kidney injury with 06/16/2023 creatinine 2.36 which had been improving but it started to rise again. 07/03/23 BUN/Cr 31/1.77-->07/04/23 BUN/Cr 24/1.35, improved. --Treatment included judicious hydration, discontinuation of methenamine and renal dosing of valcyclovir. --Urine labs included: Urine sodium 54, urine creatinine 22.30. --Renal ultrasound with no evidence of any hydronephrosis or concerning findings. --At discharge the Valcyclovir regimen which was 1,000 mg po 3x/day-->given creatinine clearance <30 transitioned to renally altered dosing of 1,000 mg every 24 hours. This may be re-assessed based on repeat outpatient renal function testing. PLEASE CONTACT and update the physician or prescribed this medication Mando Mckenzie. GIVEN YOU WERE PRESCRIBED 1,000 mg three times daily a script was not placed as you may simply take one table daily from your prior instead of the three times daily it is once daily. This again, may need to be altered based on your repeat renal function assessments. --At discharge the methenamine was discontinued. --Please follow-up outpatient with Nephrology as requested. --Please have repeat basic metabolic panel at follow-up with Primary care physician. #2. 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 #3. Recent Prior Admission Acute E. Coli UTI, Resolved w/ Hx Chronic Urinary Tract Infections: --Prior admission with urinary tract infection with culture growth of E. coli sensitive to Rocephin to which patient was treated, resolved. Repeat UA upon current presentation with elevated white blood cells in the urine but no marked signs of infection otherwise. Urine culture obtained and no evidence of marked urinary tract infection with antibiotics discontinued. --As discussed given recent serial issues with urinary tract infections upon discharge requested you to establish with Urology Dr. Avila. Discharge Orders/Prescriptions Prescriptions: New valacyclovir 500 mg tablet 1,000 mg PO DAILY 10 Days Qty: 20 0RF atorvastatin 40 mg Tablet 40 mg PO QHS 30 Days Qty: 30 0RF Continued gabapentin 300 mg capsule 300 mg PO QHS allopurinol 100 mg tablet 100 mg PO DAILY metoprolol succinate 50 mg tablet extended release 24 hr 50 mg PO DAILY gabapentin 100 mg capsule 100 mg PO DAILY potassium chloride [Klor-Con M20] 20 mEq tablet,ER particles/crystals 20 meq PO DAILY Qty: 30 2RF warfarin 4 mg tablet 4 mg PO DAILY Protocol: Dose Management Condition: Wednesday Dose/Route: 4 mg Instruction: 1 x 4 mg tablet Condition: Wednesday Dose/Route: 4 mg Instruction: 1 x 4 mg tablet Condition: Wednesday Dose/Route: 4 mg Instruction: 1 x 4 mg tablet Condition: Wednesday Dose/Route: 4 mg Instruction: 1 x 4 mg tablet Condition: Dose/Route: 8 mg Instruction: 2 x 4 mg tablets Condition: Wednesday Dose/Route: 8 mg Instruction: 2 x 4 mg tablets Condition: Wednesday Dose/Route: 4 mg Instruction: 1 x 4 mg tablet Protocol Text: Adjustment Start Date: Wednesday04/07/23 INR Value: 2.4 INR Date: 04/07/23 Recheck Date: 04/14/23 ascorbic acid (vitamin C) 500 mg tablet 500 mg PO BID difluprednate 0.05 % drops 1 drp RIGHT EYE 4X/DAY Lubricant Eye (propyl glycol) 0.6 % drops 1 drp RIGHT EYE Q6H PRN (Reason: dry eyes) amiodarone 200 mg tablet 200 mg PO DAILY Qty: 90 3RF Discontinued valacyclovir 1 gram tablet 1,000 mg PO TID methenamine hippurate 1 gram tablet 1 g PO BID Referrals / Follow Up: Audrey Avila MD [Med Staff - Active Staff] - (Please call and establish with visit to be obtained at their first open new evaluation given history of chronic urinary tract infections.) Betty Wallace MD [Med Staff - Consulting] - (Please follow-up as requested per Nephrology or within 1-2 weeks.) Mando Mckenzie MD [Med Staff - Active Staff] - (Please contact his office and update them about the renal dosing of your acyclovir and maintain follow-up as previously arranged.) Walter Emanuel Chi, MD [Primary Care Provider] - (Follow-up within 3-5 days to review admission and have repeat basic metabolic panel testing.) Disposition Disposition (needs filled in before D/C Order can be placed): Home Health Service
[2023-07-04 08:48] LABS: Prothrombin Time (Protime)PT. 22.4 SECONDS (11.7-14.9)
[2023-07-04 09:30] VITALS: BP 144/63; PULSE 82; RESP 16; TEMP 36.2; O2SAT 96
--- NOTE | 2023-07-04 10:09 | DS.PCM_ITS ---
Providers Date of Admission: 07/02/23 Date of Discharge: 07/04/23 Primary Care Physician: Dr. Walter Emanuel MD Consultations 07/02/23 16:24 Consult: Nephrology Routine Consulting Provider: Betty Wallace Reason for Consult: EULALIO on CKD EMERGENT Consult: No MD Notified: Yes Date Notified: 07/02/23 Time Notified: 16:41 Method of Notification: Answering Service Reason For Visit: EULALIO, FALLS Diagnosis Discharge Diagnosis (1) Acute kidney injury: Status: Acute Code(s): N17.9 - Acute kidney failure, unspecified Plan: DISCHARGE DIAGNOSES: #1. Adult FTT with notable Mechanical Falls, Debility possibly secondary to #2 and complicated by recent diagnosis #3 #2. Acute kidney injury on CKD stage II with incidentally noted Pyuria/ Initi ally Questionable Acute Complicated UTI, RULED OUT, EULALIO felt possible medication related and also mild dehydration related, improved #3. 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 Recent Acute E. Coli UTI, Resolved #5. Recent Acute HFpEF exacerbation, Resolved #6. Normocytic anemia #7. PAF #8. Carotid disease #9. 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 History of left-sided ductal carcinoma #11. Hypertension #12. Hyperlipidemia #13. Former tobacco use #14. CODE status: RAFAL is her and living will is currently in place. DNR-CCA, no intubation. Medications at Discharge Home Medications gabapentin 300 mg capsule 300 mg PO QHS Pain 09/03/22 metoprolol succinate 50 mg tablet,extended release 24 hr 50 mg PO DAILY Cardiac 12/04/22 amiodarone 200 mg tablet 200 mg PO DAILY #90 tabs 01/12/23 allopurinol 100 mg tablet 100 mg PO DAILY Cardiac 02/08/23 gabapentin 100 mg capsule 100 mg PO DAILY Artheritis Pain 06/16/23 potassium chloride 20 mEq tablet,extended release(part/cryst) (Klor-Con M) 20 meq PO DAILY #30 tabs 06/19/23 ascorbic acid (vitamin C) 500 mg tablet 500 mg PO BID SUPPLEMENT 07/02/23 difluprednate 0.05 % eye drops 1 drp RIGHT EYE 4X/DAY DRY EYES 07/02/23 propylene glycol 0.6 % eye drops (Lubricant Eye (propylene glycol)) 1 drp RIGHT EYE Q6H PRN dry eyes 07/02/23 warfarin 4 mg tablet 4 mg PO DAILY BLOOD THINNER 07/02/23 valacyclovir 500 mg tablet 1,000 mg (2 x 500 mg) PO DAILY 10 days #20 tabs 07/03/23 atorvastatin 40 mg tablet 40 mg PO QHS 30 days #30 tabs 07/04/23 Hospital Course Operations None Procedures EKG Summary of Care Provided Minutes Spent on Discharge: 35 Hospital Course: The patient is a 72 y/o F w/ PMHx: CKD stage II, HFpEF, HTN, HLD, Hx CVA, Hx L sided breast CA ductal carcinoma, Hx NSCL CA with metastatic disease, PAF, Former tobacco use, Obesity, recent discharged 06/19/2023 following evaluation for strokelike symptoms with evidence of subacute to old infarct in the left basal ganglia, acute heart failure exacerbation as well as complicated UTI who re- presented to the [facility] ED on 07/02/23 with history of ongoing debility, unsteady gait despite usage of a walker with frequent falls including 3 alone on morning of day of presentation twice in the bathroom and once in the kitchen with ongoing leg, left greater than right weakness with no head trauma or loss of consciousness and ability to get up after these falls but they have become more pronounced and she is unable to safely take care of herself in addition to the fact she is on chronic Coumadin for atrial fibrillation prompting eventual ED evaluation. Admitted to [facility], maintained on fall precautions, possibly related with #2 and possibly related with recent start of methenamine, will continue evaluation and treatment of EULALIO as noted, holding nephrotoxic medications, judiciously hydrating, PT/OT/CM consultation for discharge planning although patient is not amenable to SNF at this time. From discussion with charge nurse patient will need to see primary care physician prior to set up with home physical and Occupational Therapy. Discussed plan of care with patient given 07/04/2023 renal function BUN/creatinine 24/1.35 with continued improvement plan for discharge to home. Discussed patient fall history and concern it may be related with her recent stroke and discussed that at some point if risk is greater than benefit may need to get discontinue Coumadin however this is difficult given it increases her stroke risk cannot be chronically anticoagulated. Admission BUN/Cr 31/2.45, prior baseline creatinine noted to be primarily 0.7-0.8 up until 05/12/2023 however following admission patient had creatinine rise with acute kidney injury with 06/16/2023 creatinine 2.36 which had been improving but it started to rise again. Patient judiciously hydrated, held nephrotoxic medications (methenamine recently started outpatient per her and report, also recently on high-dose valacyclovir which will be continued but renal dosing requested). Urine sodium 54, urine creatinine 22.30. Renal ultrasound with no evidence of any hydronephrosis or concerning findings. Given recurrence awaiting Nephrology evaluation. ED did administer IV Rocephin although UA not marked appearing, continued on IV rocephin while awaiting UCx to be cautious. Procalcitonin 0.26. 07/03/23 BUN/Cr 31/1.77, improved--> 07/04/2023 BUN/creatinine 24/1.35, GFR 41, continued to improve toward baseline. Given clinical improvement, renal function improved toward baseline and per patient preference, patient discharged to home with planned repeat BMP with PCP at early follow-up to also clear home PT/OT set-up, follow-up with Nephrology, follow-up with Urology. Weight / BMI Weight Weight: 151 lb 14.376 oz Body Mass Index (BMI) 26.9 ABG / Lab / Microbiology Data 07/04/23 06:35 07/04/23 06:35 Laboratory: Laboratory Results - last 24 hr 07/04/23 06:35: WBC 9.0, RBC 3.64 L, Hgb 11.2 L, Hct 34.9 L, MCV 95.9, MCH 30.8, MCHC 32.1, RDW Std Deviation 52.9 H, RDW Coeff of Blanca 15.4 H, Plt Count 316, MPV 9.8, Immature Gran % (Auto) 1.500 H, Neut % (Auto) 74.8 H, Lymph % (Auto) 10.4 L , [place] % (Auto) 9.6, Eos % (Auto) 2.9, Baso % (Auto) 0.8, Absolute Neuts (auto) 6.7, Absolute Lymphs (auto) 0.93, Nucleated RBC % 0, PT 22.4 H, INR 2.0, Sodium 141, Potassium 4.4, Chloride 111 H, Carbon Dioxide 24.0, Anion Gap 6, BUN 24 H, Creatinine 1.35 H, Estim Creat Clear Calc 34.57, Est GFR (MDRD) Af Amer 49 L, Est GFR (MDRD) Non-Af 41 L, BUN/Creatinine Ratio 17.8, Glucose 119 H, Calcium 8.6, Total Bilirubin 0.30, AST 19, ALT 19, Alkaline Phosphatase 91, Total Protein 6.3 L, Albumin 2.6 L, Globulin 3.7, Albumin/Globulin Ratio 0.7 L Microbiology: Microbiology 07/02/23 12:48 Urine, Random Urine Culture - Final Mixed Gram Pos & Gram Neg Org D/C Instructions Discharge Diet: Low fat / Low cholesterol May resume sexual activity in: No Restrictions Weight Bearing Status: Weight bearing as tolerated Meaningful Use Info Meaningful Use Meaningful Use Diagnoses (Choose all that apply): None applicable Ischemic Stroke Statin Dosing Therapy Reference: STATIN DOSE THERAPY REFERENCE: * Patients > 75 years receive moderate or high dose statin therapy. * Patients 75 years or YOUNGER should receive HIGH intensity statin dose unless contraindicated. You will be required to document reason for non-treatment if statin daily dose does not meet guidelines. HIGH DOSE STATIN THERAPY DAILY Atorvastatin > than or = to 40 mg Rosuvastatin > than or = to 20 mg Amlodipine + Atorvastatin > than or = to 2.5/40 mg Ezetimibe + Simvastatin 10/80 mg Simvastatin 80mg Discharge Plan Admission Admit Date/Time: 07/02/23 14:54 Primary Reason for Your Visit: Acute Kidney Injury, Increased Falls, Adult Failure to Thrive Attending Provider: Hetal Rodríguez Primary Care Provider: Walter Emanuel Chi Consulting Providers: Betty Wallace Instructions Patient Instructions: Urinary Tract Infections in Women, Kidney Problems, Acute Kidney Failure Dc Additional Instructions / Restrictions: DISCHARGE DIAGNOSES/INFORMATION AND DATA: #1. Acute kidney injury on CKD stage II with incidentally noted Pyuria BUT RULED OUT Acute Complicated UTI (Urine culture resulted unremarkable), possibly medication related: --Admission BUN/Cr 31/2.45, prior baseline creatinine noted to be primarily 0.7-0.8 up until 05/12/2023 however following admission patient had creatinine rise with acute kidney injury with 06/16/2023 creatinine 2.36 which had been improving but it started to rise again. 4/20/24 BUN/Cr 31/1.77-->07/04/23 BUN/Cr 24/1.35, improved. --Treatment included judicious hydration, discontinuation of methenamine and renal dosing of valcyclovir. --Urine labs included: Urine sodium 54, urine creatinine 22.30. --Renal ultrasound with no evidence of any hydronephrosis or concerning findings. --At discharge the Valcyclovir regimen which was 1,000 mg po 3x/day-->given creatinine clearance <30 transitioned to renally altered dosing of 1,000 mg every 24 hours. This may be re-assessed based on repeat outpatient renal function testing. PLEASE CONTACT and update the physician or prescribed this medication Mando Mckenzie. GIVEN YOU WERE PRESCRIBED 1,000 mg three times daily a script was not placed as you may simply take one table daily from your prior instead of the three times daily it is once daily. This again, may need to be altered based on your repeat renal function assessments. --At discharge the methenamine was discontinued. --Please follow-up outpatient with Nephrology as requested. --Please have repeat basic metabolic panel at follow-up with Primary care physician. #2. 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 #3. Recent Prior Admission Acute E. Coli UTI, Resolved w/ Hx Chronic Urinary Tract Infections: --Prior admission with urinary tract infection with culture growth of E. coli sensitive to Rocephin to which patient was treated, resolved. Repeat UA upon current presentation with elevated white blood cells in the urine but no marked signs of infection otherwise. Urine culture obtained and no evidence of marked urinary tract infection with antibiotics discontinued. --As discussed given recent serial issues with urinary tract infections upon discharge requested you to establish with Urology Dr. Avila. Discharge Orders/Prescriptions Prescriptions: New valacyclovir 500 mg tablet 1,000 mg PO DAILY 10 Days Qty: 20 0RF atorvastatin 40 mg Tablet 40 mg PO QHS 30 Days Qty: 30 0RF Continued gabapentin 300 mg capsule 300 mg PO QHS allopurinol 100 mg tablet 100 mg PO DAILY metoprolol succinate 50 mg tablet extended release 24 hr 50 mg PO DAILY gabapentin 100 mg capsule 100 mg PO DAILY potassium chloride [Klor-Con M20] 20 mEq tablet,ER particles/crystals 20 meq PO DAILY Qty: 30 2RF warfarin 4 mg tablet 4 mg PO DAILY Protocol: Dose Management Condition: Wednesday Dose/Route: 4 mg Instruction: 1 x 4 mg tablet Condition: Wednesday Dose/Route: 4 mg Instruction: 1 x 4 mg tablet Condition: Wednesday Dose/Route: 4 mg Instruction: 1 x 4 mg tablet Condition: Wednesday Dose/Route: 4 mg Instruction: 1 x 4 mg tablet Condition: Dose/Route: 8 mg Instruction: 2 x 4 mg tablets Condition: Wednesday Dose/Route: 8 mg Instruction: 2 x 4 mg tablets Condition: Wednesday Dose/Route: 4 mg Instruction: 1 x 4 mg tablet Protocol Text: Adjustment Start Date: Wednesday04/07/23 INR Value: 2.4 INR Date: 04/07/23 Recheck Date: 04/14/23 ascorbic acid (vitamin C) 500 mg tablet 500 mg PO BID difluprednate 0.05 % drops 1 drp RIGHT EYE 4X/DAY Lubricant Eye (propyl glycol) 0.6 % drops 1 drp RIGHT EYE Q6H PRN (Reason: dry eyes) amiodarone 200 mg tablet 200 mg PO DAILY Qty: 90 3RF Discontinued valacyclovir 1 gram tablet 1,000 mg PO TID methenamine hippurate 1 gram tablet 1 g PO BID Referrals / Follow Up: Audrey Avila MD [Med Staff - Active Staff] - (Please call and establish with visit to be obtained at their first open new evaluation given history of chronic urinary tract infections.) Betty Wallace MD [Med Staff - Consulting] - (Please follow-up as requested per Nephrology or within 1-2 weeks.) Mando Mckenzie MD [Med Staff - Active Staff] - (Please contact his office and update them about the renal dosing of your acyclovir and maintain follow-up as previously arranged.) Walter Emanuel Chi, MD [Primary Care Provider] - (Follow-up within 3-5 days to review admission and have repeat basic metabolic panel testing.) Disposition Disposition (needs filled in before D/C Order can be placed): Home Health Service Charges/Coding Visit Charges Inpatient E&M: 50357 Disch Hosp >30min
[2023-07-04] MEDS: Amiodarone 200 MG Tablet PO (10:18)
[2023-07-04 10:19] VITALS: PULSE 82
[2023-07-04] MEDS: Metoprolol(XL)Succ 50 MG Tablet PO (10:19)
[2023-07-04] MEDS: Allopurinol 100 MG Tablet PO (10:22)
[2023-07-04] MEDS: Gabapentin 100 MG Capsule PO (10:25)
--- NOTE | 2023-07-05 15:51 | CASEMGMT ---
Received tc from Nubia at [facility], she states referral was made this weekend for pt and they can accept as long as pt goes to see . She will follow up with pt to confirm that she makes the appt and to let her know that she is accepted if so.
== END 2023-07-04 10:55 | disposition home health service (06) | DRG 683 ==
LOC: ED 14:01 → MS3 14:58
PROVIDERS: Admitting Provider Family Medicine; Emergency Provider Emergency Medicine; PCP Family Medicine Geriatric Medicine; Visit Provider Family Medicine
DX: N17.9 Acute kidney failure, unspecified (principal); I13.0 Hypertensive heart and chronic kidney disease with heart failure and stage 1 through stage 4 chronic kidney disease, or unspecified chronic kidney disease; I50.32 Chronic diastolic (congestive) heart failure; I48.0 Paroxysmal atrial fibrillation; D64.9 Anemia, unspecified; E86.0 Dehydration; R62.7 Adult failure to thrive; I65.23 Occlusion and stenosis of bilateral carotid arteries; E78.5 Hyperlipidemia, unspecified; E87.5 Hyperkalemia; N18.2 Chronic kidney disease, stage 2 (mild); M10.9 Gout, unspecified; R29.6 Repeated falls; Z68.26 Body mass index [BMI] 26.0-26.9, adult; R82.81 Pyuria; R53.81 Other malaise; Z66 Do not resuscitate; Z79.01 Long term (current) use of anticoagulants; Z79.899 Other long term (current) drug therapy; Z87.891 Personal history of nicotine dependence; Z86.73 Personal history of transient ischemic attack (TIA), and cerebral infarction without residual deficits
CPT/HCPCS: 36415; 70450; 76770; 80053; 81001; 82570; 82962; 84145; 84300; 85025; 85610; 87040; 87086; 87088; 93005; 94668; 97161; 97162; 97165; 97535; 99283; J7030; J7120; A4216

== ENCOUNTER → 2023-07-06 | Outpatient (CLI) | payer MEDICARE, SELFPAY ==
[2023-07-06 18:29] LABS: Anion Gap 5 (5-15); BUN 20 mg/dL (7-18); BUN/Creat Ratio 16.4 RATIO (10-20); Calcium,Total 9.2 mg/dL (8.5-10.1); Chloride 107 mmol/L (98-107); Creatinine, Serum 1.22 mg/dL (0.55-1.02); EST Glomerular Filtration Rate 46 mL/min (>60); Est Glom Filt Rate - Afr Amer 56 mL/min (>60); Glucose 88 mg/dL (74-106); Potassium 4.4 mmol/L (3.5-5.1); Sodium Level 140 mmol/L (136-145)
== END | disposition home or self-care (01) ==
LOC: POLAB3 15:25
PROVIDERS: PCP Family Medicine Geriatric Medicine; Visit Provider Family Medicine Geriatric Medicine
DX: N17.9 Acute kidney failure, unspecified (principal)
CPT/HCPCS: 36415; 80048

== ENCOUNTER → 2023-07-14 | Outpatient (CLI) | payer MEDICARE, SELFPAY ==
[2023-07-14 14:25] LABS: Absolute Lymphocyte Count 1.26 X10^3/uL (0.83-4.51); Absolute Neutrophil Count 6.7 X10^3/uL (2.0-7.7); Basophil# 0.07 X10^3/uL; Basophil% 0.8 % (0-1); Eosinophils% 2.2 % (0-5); Hematocrit 39.8 % (37-47); Hemoglobin 12.6 g/dL (12.0-15.0); Lymphocyte # 1.26 X10^3/ul (0.83-4.51); Lymphocyte % 13.7 % (19-41); Mean Corp Hgb Conc 31.7 g/dL (32-36); Mean Corpuscular Hgb 30.8 pg (27.0-32.0); Mean Corpuscular Volume 97.3 fL (81-99); Mean Platelet Vol. 9.6 fl (6.2-12.0); Monocyte# 0.82 X10^3/uL; Monocyte% 8.9 % (0-10); NRBC Flagged by Analyzer 0 % (0-5); Neutrophil # 6.72 X10^3/uL (2.7-7.7); Neutrophil % 73.1 % (47-70); Platelet Count 336 K/mm3 (150-450); RBC Distribution Width CV 15.3 % (11.6-14.6); RBC Distribution Width SD 54.6 fl (35.1-43.9); Red Blood Count 4.09 M/mm3 (4.2-5.4); White Blood Count 9.2 K/mm3 (4.4-11.0)
[2023-07-14 14:40] LABS: Vitamin D,25 Hydroxy 25.2 ng/mL
[2023-07-14 14:50] LABS: ALB/GLOB Ratio 0.8 RATIO (0.9-2.4); AST(SGOT) 14 U/L (15-37); Alanine Aminotransfer ALT/SGPT 25 U/L (13-56); Albumin, Serum 3.2 g/dL (3.2-5.0); Alkaline Phosphatase 114 U/L (45-117); Anion Gap 4 (5-15); BUN 15 mg/dL (7-18); BUN/Creat Ratio 14.6 RATIO (10-20); Calcium,Total 9.3 mg/dL (8.5-10.1); Chloride 105 mmol/L (98-107); Cholesterol 186 mg/dL (200); Creatinine, Serum 1.03 mg/dL (0.55-1.02); EST Glomerular Filtration Rate 56 mL/min (>60); Est Glom Filt Rate - Afr Amer 67 mL/min (>60); Globulin 4.2 g/dL (2.2-4.2); Glucose 95 mg/dL (74-106); High Density Lipoprotein 47 mg/dL; Potassium 4.5 mmol/L (3.5-5.1); Protein, Total 7.4 g/dL (6.4-8.2); Sodium Level 138 mmol/L (136-145); Thyroid Stim Hormone (TSH) 2.68 uIU/mL (0.358-3.74); Triglycerides 149 mg/dL; Uric Acid 2.6 mg/dL (2.6-6.0); Very Low Density Lipoprotein 30 mg/dL (5-40)
== END | disposition home or self-care (01) ==
LOC: LAB.FUTURE 13:40 → POLAB3 13:42
PROVIDERS: PCP Family Medicine Geriatric Medicine; Referring Provider Family Medicine Geriatric Medicine; Visit Provider Family Medicine Geriatric Medicine
DX: R55 Syncope and collapse (principal); I10 Essential (primary) hypertension; E55.9 Vitamin D deficiency, unspecified; E78.5 Hyperlipidemia, unspecified; M10.9 Gout, unspecified
CPT/HCPCS: 36415; 80053; 80061; 82306; 84443; 84550; 85025

== ENCOUNTER → 2023-07-27 | Outpatient (CLI) | payer MEDICARE, SELFPAY ==
--- NOTE | 2023-07-27 12:45 | RAD_ITS ---
STUDY: X-RAY - LEFT HUMERUS REASON FOR EXAM: Female, 72 years old. Pain following a recent fall. TECHNIQUE: 2 view(s) of the humerus. COMPARISON: None. FINDINGS: Nondisplaced impacted transverse fracture of the surgical neck proximal humerus extending into the greater tuberosity. Findings suggestive of a small left pleural effusion with left basilar atelectasis and/or infiltrate. RAD/Humerus min 2 Views IMPRESSION: Nondisplaced impacted transverse fracture of the surgical neck of the proximal humerus extending to the greater tuberosity. Left pleural effusion with left basilar infiltrate. Electronically Signed: Joseph Ott MD at 13:43 EDT ,
--- NOTE | 2023-07-27 12:45 | RAD_ITS ---
STUDY: X-RAY - LEFT SHOULDER REASON FOR EXAM: Female, 72 years old. FALL TECHNIQUE: 2 view(s) of the shoulder. COMPARISON: None. FINDINGS: Normal glenohumeral articulation. Normal acromioclavicular joint. Normal acromion. Nondisplaced impacted transverse fracture of the surgical neck of the humerus with extension to the greater tuberosity. Soft tissue swelling. Left pleural effusion with left basilar infiltrate and/or atelectasis. RAD/Shoulder min 2 Views IMPRESSION: Nondisplaced impacted transverse fracture of the surgical neck of the proximal humerus with extension to the greater tuberosity. Left pleural effusion with left basilar infiltration and/or atelectasis. Electronically Signed: Joseph Ott MD at 13:46 EDT ,
--- NOTE | 2023-07-27 12:45 | RAD_ITS ---
STUDY: X-RAY - PELVIS AND RIGHT HIP REASON FOR EXAM: Female, 72 years old. Right hip pain following a fall. TECHNIQUE: 3 views of the pelvis and hip. COMPARISON: None. FINDINGS: There is a non-specific bowel gas pattern. Prior vascular graft of the distal abdominal aorta and bilateral common iliac arteries. There is narrowing with cortical sclerosis and osteophyte formation of the sacroiliac joint consistent with degenerative osteoarthritic changes. Normal bilateral superior and inferior pubic rami. There are degenerative changes of the pubic symphysis with articular narrowing and sclerosis. Normal bilateral ischial tuberosities. Normal visualized femoral head. Normal acetabulum. Normal hip joint. RAD/HIP, UNI W/ Pelvis 2-3 Views IMPRESSION: Degenerative changes. No acute fracture is seen. Electronically Signed: Joseph Ott MD at 13:44 EDT ,
[2023-07-27 14:06] LABS: Absolute Lymphocyte Count 1.22 X10^3/uL (0.83-4.51); Absolute Neutrophil Count 9.1 X10^3/uL (2.0-7.7); Basophil% 0.8 % (0-1); Eosinophil# 0.14 X10^3/uL; Eosinophils% 1.2 % (0-5); Hematocrit 36.9 % (37-47); Hemoglobin 11.2 g/dL (12.0-15.0); Lymphocyte # 1.22 X10^3/ul (0.83-4.51); Lymphocyte % 10.3 % (19-41); Mean Corp Hgb Conc 30.4 g/dL (32-36); Mean Corpuscular Hgb 30.4 pg (27.0-32.0); Mean Platelet Vol. 9.7 fl (6.2-12.0); Monocyte# 1.17 X10^3/uL; Monocyte% 9.9 % (0-10); NRBC Flagged by Analyzer 0 % (0-5); Neutrophil # 9.06 X10^3/uL (2.7-7.7); Neutrophil % 76.4 % (47-70); Platelet Count 311 K/mm3 (150-450); RBC Distribution Width CV 15.7 % (11.6-14.6); RBC Distribution Width SD 57.2 fl (35.1-43.9); Red Blood Count 3.69 M/mm3 (4.2-5.4); White Blood Count 11.9 K/mm3 (4.4-11.0)
[2023-07-27 15:20] LABS: Color, Urine Yellow (Yellow); Glucose, Dipstick Normal (Normal); Ketone-Dipstick Negative (Negative); Leukocyte Esterase-Dipstick 100 /ul (Negative); Nitrite-Dipstick Negative (Negative); Occult Blood-Urine 10 /ul (Negative); Protein-Dipstick 15 mg/dl (Negative); Urine Bilirubin Dipstick Negative (Negative); Urine Clarity Sl. Cloudy (Clear); Urine Urobilinogen Normal (Normal)
[2023-07-27 15:30] LABS: ALB/GLOB Ratio 0.7 RATIO (0.9-2.4); AST(SGOT) 25 U/L (15-37); Alanine Aminotransfer ALT/SGPT 23 U/L (13-56); Alkaline Phosphatase 101 U/L (45-117); Anion Gap 4 (5-15); BUN 28 mg/dL (7-18); BUN/Creat Ratio 22.4 RATIO (10-20); Calcium,Total 9.3 mg/dL (8.5-10.1); Chloride 106 mmol/L (98-107); Creatinine, Serum 1.25 mg/dL (0.55-1.02); EST Glomerular Filtration Rate 45 mL/min (>60); Est Glom Filt Rate - Afr Amer 54 mL/min (>60); Globulin 4.4 g/dL (2.2-4.2); Glucose 100 mg/dL (74-106); Potassium 4.3 mmol/L (3.5-5.1); Protein, Total 7.4 g/dL (6.4-8.2); Sodium Level 139 mmol/L (136-145)
== END | disposition home or self-care (01) ==
PROVIDERS: PCP Family Medicine Geriatric Medicine; Referring Provider Family Medicine Geriatric Medicine; Visit Provider Family Medicine Geriatric Medicine
DX: M79.622 Pain in left upper arm (principal); M25.551 Pain in right hip; R29.898 Other symptoms and signs involving the musculoskeletal system; W19.XXXA Unspecified fall, initial encounter; R20.9 Unspecified disturbances of skin sensation; I10 Essential (primary) hypertension; N39.0 Urinary tract infection, site not specified
CPT/HCPCS: 36415; 73030; 73060; 73502; 80053; 81002; 85025; 87086; 87088

== ENCOUNTER 2023-08-12 09:59 | Outpatient (CLI) | payer MEDICARE, SELFPAY ==
--- NOTE | 2023-08-12 11:28 | NEURO ---
NCS and/or EMG Patient Report Ordering Doctor: Walter Emanuel Chi DATE OF SERVICE: 08/12/23 Clinical Summary: 72 year old female with symptoms of numbness and tingling in both of her feet. She denies having any back pain. Nerve Conduction Studies Summary: The sural to radial amplitude ration (SRAR) was 0.117. The left peroneal and tibial motor conduction velocities were reduced. Needle Examination Summary: Needle examination of select muscles of the left lower extremity demonstrated a higher proportion of motor unit action potentials with reduced recruitment, increased amplitude, increased duration in the left flexor digitorum longus muscles. 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 Multi Select Codes Neurology Neurology Interp Codes: 73299-36 Musc test done w/n test comp (interp) (1) and 16188-36 Nrv cndj tst 5-6 studies (interp)
== END 2023-08-12 23:59 | disposition home or self-care (01) ==
PROVIDERS: PCP Family Medicine Geriatric Medicine; Referring Provider Family Medicine Geriatric Medicine; Visit Provider Family Medicine Geriatric Medicine
DX: R20.9 Unspecified disturbances of skin sensation (principal); R29.898 Other symptoms and signs involving the musculoskeletal system
CPT/HCPCS: 95886; 95909

== ENCOUNTER → 2023-08-12 09:59 | Outpatient (REF) | payer MEDICARE, SELFPAY | LOC: PSN 09:59 | PROVIDERS: PCP Family Medicine Geriatric Medicine; Referring Provider Family Medicine Geriatric Medicine; Visit Provider Family Medicine Geriatric Medicine | DX: R29.898 Other symptoms and signs involving the musculoskeletal system (principal); R20.9 Unspecified disturbances of skin sensation | CPT/HCPCS: 95886; 95909 ==

== ENCOUNTER → 2023-08-13 | Outpatient (CLI) | payer MEDICARE, SELFPAY ==
--- NOTE | 2023-08-13 12:32 | MRI_ITS ---
STUDY: MRI LUMBAR SPINE WITHOUT CONTRAST REASON FOR EXAM: Female, 72 years old. R LEG WEAKNESS TECHNIQUE: Standardized fat and water weighted pulse sequences were obtained in the sagittal and axial planes. COMPARISON: CT abdomen and pelvis with contrast 02/01/2023. FINDINGS: T10-T11 and T11-T12: (Sagittal only). Normal endplates. Normal disc height and morphology. No ventral extradural defects. Normal central canal and bilateral intervertebral neural foramina. T12-L1: (Sagittal only). Normal endplates. Normal disc height and mild loss of disc hydration. Minimal ventral extradural defect due to minimal degenerative retrolisthesis of T12 on L1 is unchanged. Normal central canal and bilateral intervertebral neural foramina. Normal lumbar lordosis. There is no substantial scoliosis. Normal conus medullaris that terminates at the mid L1 vertebral body level. L1-2: Normal endplates. Normal disc height, hydration and morphology. Normal bilateral facet joints. Normal central canal and bilateral lateral recesses. Normal bilateral intervertebral neural foramina. Small left renal cyst is visible at this level. L2-3: Normal endplates. Normal disc height. No significant facet arthropathy. Normal central canal and bilateral lateral recesses. Small posterior bulging annulus into both L3 supra pedicular level foraminal zones. Normal bilateral intervertebral neural foramina. L3-4: Normal endplates. Mild disc space height narrowing. Mild degenerative anterolisthesis of L3 on L4 is unchanged. Pronounced right-sided disc space height narrowing. Mild asymmetric degenerative facet arthropathy, right greater than left. Normal central canal and bilateral lateral recesses. Mild stenosis of the right intervertebral neural foramen due to disc space height narrowing and bone spur coming from the right facet joint. Normal left intervertebral neural foramen. L4-5: Normal endplates. Minimal disc space height narrowing. Mild ventral extradural defect due to posterior bulging annulus and minimal degenerative anterolisthesis of L4 on L5. Mild bilateral degenerative facet arthropathy. Prominent dorsal epidural lipomatosis. Moderate central canal stenosis with an AP canal diameter of 7 mm. Normal bilateral lateral recesses. Mild stenosis of the right intervertebral neural foramen. Normal left intervertebral neural foramen. L5-S1: Normal endplates. Normal disc height, hydration and morphology. Mild asymmetric degenerative facet arthropathy, left greater than right. Normal central canal and bilateral lateral recesses. Normal bilateral intervertebral neural foramina. Normal visualized sacral ala. Normal visualized paraspinous soft tissue structures. MRI/Spine Lumbar (Routine) IMPRESSION: 1. Moderate central canal stenosis at L4-L5 disc space level with an AP canal diameter 7 mm secondary to developmentally short pedicles, mild dorsal epidural lipomatosis, posterior bulging annulus and minimal degenerative anterolisthesis of L4 on L5. 2. Mild stenosis of the right L3-L4 intervertebral neural foramen due to disc space height narrowing, degenerative anterolisthesis of L3 on L4 and bone spur coming from the right facet joint. 3. No MRI evidence of lumbar extruded disc fragment or disc protrusion. Electronically Signed: Nawaf Orozco MD at 16:00 EDT ,
== END | disposition home or self-care (01) ==
PROVIDERS: PCP Family Medicine Geriatric Medicine; Referring Provider Family Medicine Geriatric Medicine; Visit Provider Family Medicine Geriatric Medicine
DX: M79.622 Pain in left upper arm (principal); M25.551 Pain in right hip; R29.898 Other symptoms and signs involving the musculoskeletal system; R20.9 Unspecified disturbances of skin sensation; W19.XXXA Unspecified fall, initial encounter
CPT/HCPCS: 72148

== ENCOUNTER 2023-09-23 11:00 | Outpatient (RCR) | payer MEDICARE, SELFPAY ==
--- NOTE | 2023-08-20 10:00 | HP.PTEVAL_ITS ---
Patient's Visit Information Visit Information Visit Information: OSMIN DAN is a 72 year old F referred to Physical Therapy by Dr. Mando Peacock MD with a diagnosis of L proximal humerus fx. Date of Evaluation: 08/20/23 Physical Therapist: STEVE Ann Visit Plan Frequency: 2x /Week Duration: 4 Weeks Plan: Start with PROM...pt has very limited PROM and is painful. She is only 4 weeks post fall and still very bruised 2X/ week for 8 weeks or 20 visits for L shoulder PROM/AAROM/AROM, postural and scapular strength, L elbow flex/ext AROM, RC strength with HEP HEP: Pendulums flex/ext, Side to side, circles and elbow flex/ext AROM Subjective Subjective: Pt fell July 17 and fractured her L proximal humerus. She went to the Dr and they put it in a sling. They she went to Dr Peacock and he referred her to her. He said that her fractured was healed. She is Right hand. She is not using the sling anymore. She has pain all the time. When she moves her L shoulder she will sometimes get more pain. She can not sleep on her L shoulder. She is taking oxycodine (once a day and it takes the pain away for awhile). She lives with her and she has not driven since she fell. She tripped on the curb and fell. Pain L shoulder pain: Pain Intensity (Out of 10): 5 Objective Objective: R handed Shoulder AROM: R shoulder flex 145 and L 20 R shoulder ABD 180 and L 25 R shoulder IR T12 and L PSIS R shoulder ER 55 and L 15 Shoulder PROM: L flexion 76, L ER 22, L ABD 74 Pt had some increase pain with elbow flexion and ext but she said she will keep working on that motion Strength was not tested due to decrease AROM/Pain/ and the amount of Bruising still present Balance/Special Test Scores Quick DASH Score: 65.9075 Goals Goal 1:: I HEP Goal Time Frame: 6-8 Weeks Goal 2:: Have full L elbow flex/ext AROM Goal Time Frame: 6-8 Weeks Goal 3:: Increase L shoulder AROM (at the time of the eval: Shoulder AROM: R shoulder flex 145 and L 20 R shoulder ABD 180 and L 25 R shoulder IR T12 and L PSIS R shoulder ER 55 and L 15) Goal Time Frame: 6-8 Weeks Goal 4:: Be able to functionally use her L arm for ADL's with minimal pain Goal Time Frame: 6-8 Weeks Rehabilitation Potential Rehabilitation Potential: Good Anticipated Interventions Patient/Client Instruction: Educate patient on: Condition For the Purpose of:: To decrease pain, To increase ROM, To improve nutrient delivery to tissue, To improve muscle performance and motor function, To improve ability to perform ADL's, To increase tolerance to activity/condition/position, To improve performance and independence with ADL's, To improve gait and lo comotor functions, To improve health of tissue, To decrease soft tissue restriction and To increase flexibility/ROM Therapeutic Exercise to Include: Strength training, Postural training, Flexibilty training, Passive ROM, Active ROM and Scapular Strength/Stabilization For the Purpose of:: To decrease pain, To decrease swelling/inflammation, To increase ROM, To improve nutrient delivery to tissue, To improve muscle performance and motor function, To improve ability to perform ADL's, To increase tolerance to activity/condition/position, To improve performance and independence with ADL's, To decrease level of supervision to perform tasks, To improve health of tissue, To decrease soft tissue restriction and To increase flexibility/ROM Manual Therapy Techniques to Include: Passive ROM For the Purpose of:: To increase ROM and To improve nutrient delivery to tissue Cryotherapy (ice pack, ice massage): Yes Thermo therapy (hot pack): Yes Text: Thank you for the opportunity to evaluate your patient. For Medicare and Medicare HMO plans, please review the plan of care and approve it. It will need to be FAXED BACK to us at [phone] for Medicare purposes. For Medicare only, by signing this I certify the plan of care. Please let me know if there are questions or concerns regarding this plan of care. Physician Signature: Date:___
--- NOTE | 2023-10-15 09:27 | HP.PTDCSUM ---
Discharge Summary D/C summary: It has been my pleasure to treat OSMIN DAN referred by Dr. Mando Peacock MD, with the diagnosis of L proximal humerus fx for a total of 7 visit(s). Discharge Date: 10/15/23 Please see the following information for a summary of their discharge status. Subjective Subjective: Patient sees her Surgeon in Oct. Patient arrived to PT stating she needs to be done with PT bc she can no longer afford it. Pain L shoulder pain: Pain Intensity (Out of 10): 2 Overall Improvement % Improvement: 70 Objective Objective/Function: Patient arrived to PT stating she needed to be done after today, can no longer afford her copay. PT Hazel notified of this and instructed patient on continuing with current HEP and adding today's activities to HEP with good understanding. Patient advised to keep working on her ROM and will call if she needs to have more PT in the next 30 days. Patient reports she has made good progress with therapy and is feeling better each day. Goals Goal 1:: I HEP Goal 2:: Have full L elbow flex/ext AROM Goal 3:: Increase L shoulder AROM (at the time of the eval: Shoulder AROM: R shoulder flex 145 and L 20 R shoulder ABD 180 and L 25 R shoulder IR T12 and L PSIS R shoulder ER 55 and L 15) Goal 4:: Be able to functionally use her L arm for ADL's with minimal pain Plan Plan: Start with PROM...pt has very limited PROM and is painful. She is only 4 weeks post fall and still very bruised 2X/ week for 8 weeks or 20 visits for L shoulder PROM/AAROM/AROM, postural and scapular strength, L elbow flex/ext AROM, RC strength with HEP HEP: Pendulums flex/ext, Side to side, circles and elbow flex/ext AROM D/C Information Discharge Comments: DC PT to HEP per pt request d/c sentence: If there are questions or concerns regarding this patient's physical therapy, please feel free to call me at [phone]. Thank you for the referral of this patient. Sincerely, Hazel Gonzalez, MPT Balance/Gait/Functional tests Balance/Special Test Scores Quick DASH Score: 38.6350 Improvement % Improvement: 70
== END 2023-09-23 19:00 | disposition home or self-care (01) ==
LOC: PT 11:00
PROVIDERS: PCP Family Medicine Geriatric Medicine; Referring Provider Orthopaedic Surgery Sports Medicine; Visit Provider Orthopaedic Surgery Sports Medicine
DX: S42.202D Unspecified fracture of upper end of left humerus, subsequent encounter for fracture with routine healing (principal)
CPT/HCPCS: 97110; 97140; 97162

== ENCOUNTER → 2023-10-04 | Outpatient (CLI) | payer MEDICARE, SELFPAY ==
[2023-10-04 17:23] LABS: Absolute Lymphocyte Count 1.37 X10^3/uL (0.83-4.51); Absolute Neutrophil Count 6.2 X10^3/uL (2.0-7.7); Basophil# 0.05 X10^3/uL; Basophil% 0.6 % (0-1); Eosinophil# 0.16 X10^3/uL; Eosinophils% 1.8 % (0-5); Hematocrit 39.1 % (37-47); Hemoglobin 11.9 g/dL (12.0-15.0); Lymphocyte # 1.37 X10^3/ul (0.83-4.51); Lymphocyte % 15.5 % (19-41); Mean Corp Hgb Conc 30.4 g/dL (32-36); Mean Corpuscular Hgb 28.3 pg (27.0-32.0); Mean Corpuscular Volume 93.1 fL (81-99); Mean Platelet Vol. 9.5 fl (6.2-12.0); Monocyte# 0.97 X10^3/uL; NRBC Flagged by Analyzer 0 % (0-5); Neutrophil # 6.22 X10^3/uL (2.7-7.7); Neutrophil % 70.2 % (47-70); Platelet Count 432 K/mm3 (150-450); RBC Distribution Width CV 16.5 % (11.6-14.6); RBC Distribution Width SD 55.7 fl (35.1-43.9); White Blood Count 8.9 K/mm3 (4.4-11.0)
[2023-10-04 17:59] LABS: ALB/GLOB Ratio 0.7 RATIO (0.9-2.4); AST(SGOT) 20 U/L (15-37); Alanine Aminotransfer ALT/SGPT 24 U/L (13-56); Albumin, Serum 3.2 g/dL (3.2-5.0); Alkaline Phosphatase 131 U/L (45-117); Anion Gap 4 (5-15); BUN 16 mg/dL (7-18); Calcium,Total 9.2 mg/dL (8.5-10.1); Chloride 104 mmol/L (98-107); Creatinine, Serum 1.14 mg/dL (0.55-1.02); EST Glomerular Filtration Rate 50 mL/min (>60); Est Glom Filt Rate - Afr Amer 60 mL/min (>60); Globulin 4.6 g/dL (2.2-4.2); Glucose 95 mg/dL (74-106); Potassium 4.6 mmol/L (3.5-5.1); Protein, Total 7.8 g/dL (6.4-8.2); Sodium Level 139 mmol/L (136-145); Thyroid Stim Hormone (TSH) 3.08 uIU/mL (0.358-3.74); Uric Acid 4.4 mg/dL (2.6-6.0)
== END | disposition home or self-care (01) ==
PROVIDERS: PCP Family Medicine Geriatric Medicine; Visit Provider Family Medicine Geriatric Medicine
DX: I10 Essential (primary) hypertension (principal); E55.9 Vitamin D deficiency, unspecified; M10.9 Gout, unspecified
CPT/HCPCS: 36415; 80053; 82306; 84443; 84550; 85025

== ENCOUNTER → 2023-10-18 | Outpatient (CLI) | payer MEDICARE, SELFPAY ==
--- NOTE | 2023-10-18 16:52 | RAD_ITS ---
EXAM: XR CHEST, 2 VIEWS CLINICAL INDICATION: Chronic cough TECHNIQUE: Frontal and lateral views of the chest. COMPARISON: 06/18/2023 FINDINGS: LUNGS AND PLEURAL SPACES: Left-sided pleural effusion with associated airspace disease similar to the prior examination. Diffuse interstitial prominence in the right lung perhaps secondary to chronic interstitial changes and/or mild edema. No pneumothorax. HEART: Cardiomegaly and/or pericardial effusion. MEDIASTINUM: Central airways and mediastinal contour are unremarkable. BONES/JOINTS: No significant abnormality. No acute fracture. SOFT TISSUES: No significant abnormality. VASCULATURE: Atherosclerosis. Aortic vascular stent partially visualized. RAD/Chest PA and Lateral IMPRESSION: 1. Left-sided pleural effusion with associated airspace disease similar to the prior examination. 2. Cardiomegaly and/or pericardial effusion. 3. Diffuse interstitial prominence in the right lung perhaps secondary to chronic interstitial changes and/or mild edema. Electronically Signed: Miguel Overton DO at 20:41 EDT ,
== END | disposition home or self-care (01) ==
LOC: RAD 16:51
PROVIDERS: PCP Family Medicine Geriatric Medicine; Referring Provider Family Medicine Geriatric Medicine; Visit Provider Family Medicine Geriatric Medicine
DX: R05.3 Chronic cough (principal)
CPT/HCPCS: 71046

== ENCOUNTER → 2023-10-21 | Outpatient (CLI) | payer MEDICARE, SELFPAY ==
--- NOTE | 2023-10-21 16:01 | CT_ITS ---
INDICATION: PLEURAL EFFUSION EXAMINATION: CT CHEST WITHOUT CONTRAST - CT Chest W/O Contrast Injection TECHNIQUE: Helically acquired images were obtained of the chest. The protocol utilizes one or more of the following dose reduction techniques: automated exposure control, adjustment of mA and/or kV according to patient size,and/or use of iterative reconstruction technique. IV Contrast dosage and agent: None. RADIATION DOSAGE (If Supplied By Facility): CTDIvol = ( 8.08 ) mGy, DLP = ( 228.63 ) mGycm COMPARISON: Prior study dated: 05/05/2023 FINDINGS: LUNGS, PLEURA AND LARGE AIRWAYS: The central airways are patent. Similar appearance of a moderate left pleural effusion with associated atelectasis. Central consolidation with air bronchograms in the left perihilar region. There is moderate centrilobular and paraseptal emphysema. Right apical spiculated nodule measures 0.6 cm on series 2 image 20. This is similar to prior. No pneumothorax. THYROID: No thyroid lesions. HEART AND PERICARDIUM: Heart size is normal. No pericardial effusion. CORONARY ARTERIES: Coronary artery calcification is seen. VESSELS: Thoracic aorta is not dilated. MEDIASTINUM AND MARGA: No mediastinal or hilar adenopathy. Esophagus is unremarkable. No hiatal hernia. UPPER ABDOMEN: No acute pathology. BONES: No suspicious lytic or blastic abnormality. Multilevel degenerative changes of the spine. CT/Chest without Contrast IMPRESSION: Moderate left pleural effusion is similar to prior. Persistent associated atelectasis. Central consolidative opacity with air bronchograms may represent fibrosis. Unchanged spiculated right apical pulmonary nodule measuring 0.6 cm. Electronically Signed: Lopez Simpson MD at 13:27 EDT ,
== END | disposition home or self-care (01) ==
LOC: CT 16:00
PROVIDERS: PCP Family Medicine Geriatric Medicine; Referring Provider Family Medicine Geriatric Medicine; Visit Provider Family Medicine Geriatric Medicine
DX: J90 Pleural effusion, not elsewhere classified (principal)
CPT/HCPCS: 71250

== ENCOUNTER 2023-11-05 09:02 | Outpatient (RCR) | payer MEDICARE, SELFPAY ==
[2023-10-21 17:28] LABS: International Normalized Ratio 3.7; Prothrombin Time (Protime)PT. 36.3 SECONDS (11.7-14.9)
[2023-10-29 13:41] LABS: International Normalized Ratio 1.2; Prothrombin Time (Protime)PT. 14.9 SECONDS (11.7-14.9)
[2023-11-05 10:24] LABS: Prothrombin Time (Protime)PT. 22.4 SECONDS (11.7-14.9)
== END 2023-11-05 18:00 | disposition home or self-care (01) ==
LOC: LAB 09:02
PROVIDERS: Nurse Practitioner Gerontology; PCP Family Medicine Geriatric Medicine; Referring Provider Physician Assistant Medical; Visit Provider Physician Assistant Medical
DX: I48.91 Unspecified atrial fibrillation (principal); Z79.01 Long term (current) use of anticoagulants
CPT/HCPCS: 36415; 85610

== ENCOUNTER 2023-11-18 10:00 | Outpatient (RCR) | payer MEDICARE, SELFPAY | END 2023-11-18 19:00 | disposition home or self-care (01) | LOC: SP 10:00 | PROVIDERS: PCP Family Medicine Geriatric Medicine; Referring Provider Family Medicine Geriatric Medicine; Visit Provider Family Medicine Geriatric Medicine | DX: T17.908D Unspecified foreign body in respiratory tract, part unspecified causing other injury, subsequent encounter (principal); R13.12 Dysphagia, oropharyngeal phase | CPT/HCPCS: 92526; 92610; 92612 ==

== ENCOUNTER 2023-11-30 13:30 | Outpatient (CLI) | payer MEDICARE, SELFPAY ==
--- NOTE | 2023-11-30 | FLU_PTH ---
PATIENT: OSMIN DAN LOC: [facility]#:[id number] AGE/SX: 72/F ROOM: RE11/30/[address]: Dr. Nicho Alexander DO : 1950 BED: DIS: 11/30/2023 SPEC #: [id number] RECD: 11/30/23 14:02 STATUS: SHU LEXY #: [id number] MOOK: 11/30/23 00:[address]: Nicho Alexander DEPT: CYTOLOGY RECD BY: Ximena Joya ENTERED: 12/01/23 10:25 SP TYPE: Fluid OTHR DR: Dr. Walter Emanuel MD Tissues: THORACIC FLUID Procedures: Special Stain Group II Surgery Specimen Level IV Cytospin Fluid HEADER OPERATION: Thoracentesis PRE-OP DIAGNOSIS: Pleural effusion TISSUE SUBMITTED: Thoracentesis fluid for cytology DIAGNOSIS CYTOLOGY Thoracentesis fluid for cytology (cytospin and cellblock): Negative for malignant cells. AM.mr 12/02/2023 CYTOLOGY STUDY Slides are reviewed. CYTOLOGY GROSS Received is 85 ml of cloudy-red fluid labeled with the patient's name and and designated per the requisition as Thoracentesis fluid. Submitted for cytology preparation including cell block. 12/01/2023 TC:5 CPT: 58459,27125
[2023-11-30 13:42] VITALS: BP 153/60; PULSE 81; RESP 18; O2SAT 91
[2023-11-30] MEDS: Lidocaine 2% (20 ml mdv) 20 ML Vial INFILT (13:52)
[2023-11-30 13:57] VITALS: BP 164/80; PULSE 90; RESP 18; O2SAT 95
--- NOTE | 2023-11-30 14:00 | RAD_ITS ---
INDICATION: post thoracentesis EXAMINATION/TECHNIQUE: X-RAY - XR Chest 2 Views COMPARISON: October 18, 2023 FINDINGS: LINES/DEVICES: None. LUNGS: There is a left pleural effusion that has decreased in size. No pneumothorax. MEDIASTINUM AND CARDIOVASCULAR STRUCTURES: Cardiac silhouette not enlarged. Central airways and mediastinal contour are unremarkable. BONES AND SOFT TISSUES: Unremarkable. RAD/Chest Insp/Exp 2 View IMPRESSION: Interval decrease in size of left pleural effusion consistent with recent thoracentesis, cannot exclude associated left basilar consolidation. Electronically Signed: Shirley Ochoa MD at 14:14 EDT ,
[2023-11-30 14:05] VITALS: BP 150/61; PULSE 85; RESP 18; O2SAT 93
[2023-11-30 14:34] LABS: Body Fluid Mononuclear WBC # 0.778 10^3/uL; Body Fluid Polynuclear WBC # 0.058 10^3/uL; Body Fluid Total Cells Counted 0.852 10^3/ul; Red Cell Count/Body Fluid 0.068 10^6/ul; White Blood Count/Body Fluid 0.836 10^3/uL
[2023-11-30 14:35] LABS: Auto B Fluid Analyzer BKGD Ct COUNTS W/IN LIMITS (W/IN LIMITS)
[2023-11-30 14:36] LABS: Appearance/Body Fluid CLOUDY; Color/Body Fluid RED; Source- Body Fluid PLEURAL FLUID
[2023-11-30 14:57] LABS: LDH,Body Fluid 337 Units/L (Not Establ.); Protein, Body Fluid 3.8 g/dL (Not Establ.)
[2023-11-30 15:23] LABS: Body Fluid QC Type(s) BF1Q; Lymphocytes 73 %; Mesothelial Cells 9 %; Monocytes 7 %; Neutrophil (Segs) 11 %
[2023-11-30 15:39] LABS: Platelet Count 512 K/mm3 (150-450)
[2023-11-30 15:41] LABS: International Normalized Ratio 2.2; Prothrombin Time (Protime)PT. 24.5 SECONDS (11.7-14.9)
[2023-11-30 15:42] LABS: Partial Thromboplast Time 53.8 Seconds (24.1-36.2)
[2023-11-30 16:08] LABS: ALB/GLOB Ratio 0.6 RATIO (0.9-2.4); Globulin 4.4 g/dL (2.2-4.2); LDH 254 U/L (84-246); Protein, Total 7.2 g/dL (6.4-8.2)
[2023-12-02 13:02] LABS: Pathologist Comment/Body Fluid Reviewed
[2023-12-03 09:02] LABS: Cytology, Body Fluid / CSF SEE PATHOLOGY REPORT
== END 2023-11-30 23:59 | disposition home or self-care (01) ==
LOC: US 13:30
PROVIDERS: Nurse Practitioner Acute Care; PCP Family Medicine Geriatric Medicine; Referring Provider Student in an Organized Health Care Education/Training Program; Visit Provider Student in an Organized Health Care Education/Training Program
DX: Z01.812 Encounter for preprocedural laboratory examination (principal); C34.92 Malignant neoplasm of unspecified part of left bronchus or lung; J90 Pleural effusion, not elsewhere classified; D50.9 Iron deficiency anemia, unspecified
CPT/HCPCS: 32555; 36415; 71046; 83615; 84156; 84157; 85049; 85610; 85730; 87070; 87075; 87205; 88108; 88305; 88313; 89050

== ENCOUNTER → 2023-12-01 | Outpatient (CLI) | payer MEDICARE, SELFPAY ==
--- NOTE | 2023-11-30 14:22 | PCM.OP.PRO ---
Procedure Report Date of Procedure: 11/30/23 Assessment & Plan Assessment/Plan (1) Pleural effusion, left: PLAN: PROCEDURE: Ultrasound Guided Thoracentesis ORDERING PROVIDER: Dr. Alexander INDICATION: Female, 72 years old. Left pleural effusion. PROVIDER: DIONISIO Peres PROCEDURE: The risks, benefits, and alternatives to the procedure were explained to the patient. The specific risks of bleeding, infection, and pneumothorax requiring chest tube insertion were discussed and accepted. Written informed consent was obtained. The patient was placed in the sitting, upright position. Ultrasonographic evaluation of the bilateral lower pleural spaces was carried out. An adequate pocket was identified in the left lower pleural space. The overlying skin was prepped with chlorhexidine and draped in sterile fashion. 2 % lidocaine was administered subcutaneously for local anesthesia. Under ultrasound guidance, a 5-Filipino thoracentesis needle/catheter system was advanced into the left posterior lower pleural fluid collection. 430 ml of clear red colored fluid was drained. 100 mL of this fluid was sent to laboratory for analysis. The catheter was removed, and a sterile dressing was applied. The patient tolerated the procedure well. A chest x-ray was ordered. IMPRESSION: Successful ultrasound guided thoracentesis of left pleural effusion. Procedures Radiology Radiology US Procedures: 76102 Thoracentesis
[2023-12-01] VITALS (14 sets, daily range): BP systolic 119–159; BP diastolic 51–82; PULSE 65–74; RESP 12–18; TEMP 36.1; O2SAT 92–99; BMI 24.7
--- NOTE | 2023-12-01 | IMM_PTH ---
PATIENT: OSMIN DAN LOC: [facility] U#:[id number] AGE/SX: 73/F ROOM: RE12/01/[address]: Dr. Nicho Alexander DO : 1950 BED: DIS: 12/01/2023 SPEC #: [id number] RECD: 12/01/23 10:57 STATUS: SHU REQ #: [id number] MOOK: 12/01/23 00:[address]: Nicho Alexander DEPT: IMMUNOHISTOCHEMISTRY RECD BY: Joao Castaneda ENTERED: 12/01/23 10:58 SP TYPE: IMMUNO OTHR DR: MD Ana Maria Perez Chi, [employer]-C Tissues: Chest wall, NOS Procedures: RCC (add) NAPSIN A (add) CK20 (add) CK5-6 (add) CK7 (add) CK8 (add) HEP PAR (add) KI-67 (add) P16 (add) P53 (add) NE (add) TTF1 (add) Pankeratin (add) P40 (add) ER (initial) PHYSIC[facility] INSTIT[facility] [address] [address] SPECIMEN INFORMATION: Tissue Source: Left chest wall Clinical Info: Left chest wall mass Specimen Number: [id number] CPT code: 38300,[id number] METHODOLOGY: Deparaffinized sections of prefer/formalin-fixed tissue or PAP/DQ stained slides are incubated with monoclonal/polyclonal antibodies/oligonucleotide probes. Localization is made via biotin free immunoperoxidase method. Appropriate controls are performed and reacted as expected. Results on target cell population are indicated in the following table: RESULTS: ANTIBODY / CLONE RESULT ER (6F11) negative NE (1E2) negative AE1-3 (AE1/AE3/PCK26) positive CK7 (OV-TL12/30) negative CK8 (07fjjoU08) positive CK20 (KS20.8) positive TTF-1 (8G7G3/1) negative Napsin A (Rabbit Polyclonal) negative HepPar (OCh1E5) negative RCC (PN-15) positive CK5-6 (D5 & 1684) positive P40 (BC28) positive P16 (E6H4) negative P53 (DO-7) positive, intermediate pattern Ki-67 (30-9) positive, moderate These tests were developed and their performance characteristics determined by [facility]. They may not have been cleared or approved by the U.S. Food and Drug Administration. The FDA has determined that such clearance or approval is not necessary. The above immunohistochemical/dualISH markers are ordered and reviewed by the Pathologist. INTERPRETATION: Left chest wall mass, CT guided core biopsy: Moderate differentiated squamous cell carcinoma. Case has been reviewed in consultation with Dr. Abel who concurs with the above diagnosis. IDC:SENA AVALOSmr 12/02/2023
--- NOTE | 2023-12-01 | ASPIGT_PTH ---
PATIENT: OSMIN DAN LOC: [place] U#:[id number] AGE/SX: 73/F ROOM: RE12/01/[address]: Dr. 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 See comment. KATHRYNMarcy 12/02/2023 COMMENT The specimen is evaluated at the time of biopsy by Dr. Terrazas. Immediate Evaluation = Malignant cells present derived from non-small cell carcinoma. Immunohistochemistry ([id number]) supports the above diagnosis. Molecular studies of the tumor can be performed if clinically indicated. Please make reference to previous specimen [id number], floor of moth mucosa, excisional biopsy with diagnosis of squamous cell carcinoma in situ. Case has been reviewed in consultation with Dr. Abel who concurs with the above diagnosis. IDC:AM MICROSCOPIC DESCRIPTION Slides are reviewed. GROSS DESCRIPTION Received in fixative is one container labeled with the patient's name and designated Left chest wall. The specimen consists of multiple irregular fragments of meza soft tissue that in aggregate measure 1.0 x 0.2 x 0.1 cm. The specimen is totally submitted in one cassette. Two touch imprints are prepared at the time of core biopsy. KATHRYNMarcy 12/01/2023 TC:0 CPT:13344,12362
[2023-12-01 08:25] LABS: International Normalized Ratio 1.8; Prothrombin Time (Protime)PT. 20.3 SECONDS (11.7-14.9)
[2023-12-01 08:26] LABS: Partial Thromboplast Time 46.4 Seconds (24.1-36.2)
[2023-12-01] MEDS: 0.9% Normal Saline (250mL Bag) 250 ML 15 ML IV (09:11)
[2023-12-01] MEDS: Midazolam 2 MG/2 ML Syringe IV (09:16)
[2023-12-01] MEDS: fentaNYL 100 MCG/2 ML Ampul IV (09:19)
[2023-12-01] MEDS: Lidocaine 2% (20 ml mdv) 20 ML Vial INFILT (09:35)
--- NOTE | 2023-12-01 10:01 | PRO.PCM_ITS ---
Procedure Report Date of Procedure: 12/01/23 Assessment & Plan Assessment/Plan (1) Mass of left chest wall: PLAN: PROCEDURE: CT DIRECTED CORE LEFT CHEST WALL MASS BIOPSY ORDERING PROVIDER: Dr. Alexander INDICATION: Female, 73 years old. Left lateral anterior chest wall. PROVIDER: DIONISIO Peres CONSENT: Written informed consent was obtained having explained the risks, benefits and alternatives in detail with the patient who accepted the risks and agreed to proceed. Laboratory review and clinical assessment was performed. PRE-PROCEDURE SEDATION ASSESSMENT: Current history and physical dictated by referring provider and reviewed. No clinical changes since date of exam. Patient has a Mallampati Score of Class 1 and ASA Class of 3. PROCEDURAL SEDATION PROTOCOL: The Drugs used were: 1 mg Versed, IV, and 25 mcg Fentanyl, IV. The sedation time was: 25 minutes, starting at 9:16 AM and terminated at 9:41 AM. The procedural sedation protocol was independently monitored by the department nurse. RADIATION DOSAGE (If Supplied By Facility): CTDIvol = 18.63 mGy, DLP = 500.01 mGycm Individualized dose optimization techniques were used for this CT. TECHNIQUE The patient was placed in a supine position. Using CT image guidance with image documentation, the left anterior chest wall mass was identified. The skin surface was prepped with chlorhexidine and draped in a sterile fashion. 2% l idocaine was used for local anesthesia. Using an anterior approach, puncture of the lesion was uneventful with an 20-gauge core needle system. 5, 20-gauge core samples were obtained. Pathology was present to review samples and prepare slides for further testing. The needle was removed. An occlusive sterile dressing was applied. Patient tolerated the procedure well, and returned to the holding bay for nursing monitoring. IMPRESSION: CT directed core needle biopsy of left anterior chest wall, using CT image guidance with image documentation as described. Procedural Sedation protocol utilized with independent monitoring. Procedures Radiology Radiology CT Procedures: [id number] Biopsy Lung
== END | disposition home or self-care (01) ==
LOC: CT 07:48
PROVIDERS: Nurse Practitioner Acute Care; PCP Family Medicine Geriatric Medicine; Referring Provider Student in an Organized Health Care Education/Training Program; Visit Provider Student in an Organized Health Care Education/Training Program
DX: C34.92 Malignant neoplasm of unspecified part of left bronchus or lung (principal); J90 Pleural effusion, not elsewhere classified; D50.9 Iron deficiency anemia, unspecified
CPT/HCPCS: 32408; 32555; 36415; 77012; 85610; 85730; 88172; 88305; 88313; 88341; 88342; 99156; J7050

== ENCOUNTER 2023-12-16 12:16 | Outpatient (RCR) | payer MEDICARE, SELFPAY ==
[2023-12-16 14:10] LABS: International Normalized Ratio 4.9
== END 2023-12-16 18:00 | disposition home or self-care (01) ==
LOC: LAB 12:16
PROVIDERS: PCP Family Medicine Geriatric Medicine; Referring Provider Physician Assistant Medical; Visit Provider Physician Assistant Medical
DX: I48.91 Unspecified atrial fibrillation (principal); Z79.01 Long term (current) use of anticoagulants
CPT/HCPCS: 36415; 85610

== ENCOUNTER 2024-01-05 05:44 | Day surgery (SDC) | payer MEDICARE, SELFPAY ==
[2024-01-05] VITALS (7 sets, daily range): BP systolic 102–155; BP diastolic 63–110; PULSE 75–84; RESP 16–18; TEMP 36.1–37.1; O2SAT 86–100; BMI 25.7
--- OUTSIDE RECORDS SUMMARY | 2024-01-05 05:46 | XMS RPT_ITS | CCD ---
Author Organization [facility] Care Team Providers Care Epidemiology Internship Name Role Phone ADELFO, WALTER-CHI Unavailable Unavailable ADELFO, WALTER-CHI Unavailable Unavailable ADELFO, WALTER-CHI Unavailable Unavailable ADELFO, WALTER-CHI Unavailable Unavailable Adelfo, Walter Chi Primary Care Provider Ck Perez Unavailable [phone] Danita Millan RN Unavailable Unavailable Adelfo DONIS, Walter-Chi Primary Care Provider [phone] Bertin Valentin MD Unavailable Ck Perez Unavailable Danita Millan RN Unavailable Unavailable Adelfo , Walter-Chi Primary Care Provider Bertin Valentin MD Unavailable ROXANNE GODFREY Referring Unavailable ADELFO, WALTER CHI Primary Care Unavailable ROXANNE GODFREY Attending Unavailable ADELFO, WALTER CHI Primary Care Unavailable Ck Pringle MD Unavailable Nicho Alexander DO Unavailable ADELFO, WALTER-CHI Primary Care Unavailable ADELFO, WALTER-CHI Primary Care Unavailable YAZ GARCIA Referring Unavailable ADELFO, WALTER-CHI Primary Care Unavailable MILO PONCE Referring Unavailable MILO PONCE Attending Unavailable SEIMETIENNE Referring Unavailable ADELFO, WALTER-CHI Primary Care Unavailable SEIMCALEETIENNE B Attending Unavailable ADELFO, WALTER-CHI Primary Care Unavailable ADELFO, WALTER-CHI Primary Care Unavailable ADELFO, WALTER-CHI Primary Care Unavailable CK PRINGLE Referring Unavailable CONSULT, PULMONOLOGY Consulting Unavailable ETIENNE SINGH Attending Unavailable ETIENNE SINGH Admitting Unavailable LIBERTY ESCALERA Referring Unavailable ADELFO, WALTER-CHI Primary Care Unavailable KIARA CAUSEY Attending Unavailable ADELFO, WALTER-CHI Primary Care Unavailable SELF, SELF Referring Unavailable DANITA STRONG Attending Unavailable SEIM, ETIENNE B Attending Unavailable ADELFO, WALTER-CHI Primary Care Unavailable SEIM, ETIENNE B Referring Unavailable MILO PONCE Attending Unavailable ADELFO, WALTER-CHI Primary Care Unavailable GARCIAYAZ Referring Unavailable SEIM, ETIENNE B Attending Unavailable CK PRINGLE Referring Unavailable ADELFO, WALTER-CHI Primary Care Unavailable SEIM, ETIENNE B Attending Unavailable CK PRINGLE Referring Unavailable ADELFO, WALTER-CHI Primary Care Unavailable ADELFO, WALTER-CHI Primary Care Unavailable SEIM, ETIENNE B Attending Unavailable GARCIA, YAZ R Referring Unavailable ADELFO, WALTER-CHI Primary Care Unavailable SEIM, ETIENNE B Attending Unavailable GARCIA, YAZ R Referring Unavailable INDRA DUTTON Attending Unavailable ADELFO, WALTER-CHI Primary Care Unavailable GARCIA, YAZ Nieto Referring Unavailable ADELFO, WALTER-CHI Primary Care Unavailable GARCIA, YAZ R Referring Unavailable ADELFO, WALTER-CHI Primary Care Unavailable SEIM, ETIENNE B Attending Unavailable GARCIA, YAZ R Referring Unavailable ADELFO, WALTER-CHI Primary Care Unavailable GARCIA, YAZ R Attending Unavailable GARCIA, YAZ R Referring Unavailable PAYTON ELDER Attending Unavailable ADELFO, WALTER-CHI Primary Care Unavailable SEIM, ETIENNE B Referring Unavailable SEIM, ETIENNE B Attending Unavailable ADELFO, WALTER-CHI Primary Care Unavailable CK PRINGLE Referring Unavailable Medications Current Medications Medication Drug Class(es) Dates Sig (Normalized) Sig (Original) Multiple Vitamins-Minerals (CENTRUM SILVER 50+WOMEN PO) (6 sources) take 1 tablet by shweta th once daily in the morning Multiple Vitamins-Minerals (CENTRUM SILVER 50+WOMEN PO) Take 1 tablet by mouth daily every morning. Active take 1 tablet by shweta th once daily in the morning Multiple Vitamins-Minerals (CENTRUM SILV ER 50+WOMEN PO) Take 1 tablet by mouth daily every morning. 0 Active warfarin sodium 4 mg oral tablet (2 sources) Vitamin K Antagonist Start: 04-14-2023 warfarin 4 MG tablet 04/14/2023 Active Completed/Discontinued Medications Medication Drug Class(es) Dates Sig (Normalized) Sig (Original) acetaminophen 325 mg oral tablet (7 sources) Start: 08-13-2022 End: 06-03-2023 take 2 tablets by mouth every six hours as needed Acetaminophen 325 MG tablet Take 2 tablets by mouth every 6 hours as needed. 08/13/2022 06/03/2023 Discontinued (Therapy completed) Start: 08-12-2022 End: 08-13-2022 take 1 tablet by mouth every four hours as needed Acetaminophen (TYLENOL) tablet 650 mg albuterol 0.833 mg/ml / ipratropium bromide 0.167 mg/ml inhalation solution (1 source) Anticholinergic, beta2-Adrenergic Agonist Start: 08-12-2022 End: 08-12-2022 Ipratropium-albuterol (DUONEB) 0.5-2.5 (3) MG/3ML nebulizer solution 3 mL allopurinol 300 mg oral tablet (11 sources) Xanthine Oxidase Inhibitor Start: 04-25-2022 End: 05-07-2023 take 1 tablet by mouth once daily in the morning Allopurinol 300 MG tablet Take 1 tablet by mouth daily every morning. 07/02/2022 05/07/2023 Discontinued (Therapy completed) amiodarone hydrochloride 200 mg oral tablet (2 sources) Antiarrhythmic Start: 12-11-2022 End: 05-07-2023 take 1 tablet by mouth once daily, then take 1 tablet by mouth once daily AMIOdarone 200 MG tablet TAKE 1 TABLET orally daily for Correction OF dose, only once per day] 12/11/2022 05/07/2023 Discontinued (Therapy completed) apixaban 5 mg oral tablet (2 sources) Factor Xa Inhibitor Start: 11-24-2022 End: 05-07-2023 take 1 tablet by mouth twice daily Eliquis 5 MG tablet Take 1 tablet by mouth 2 times daily. 11/24/2022 05/07/2023 Discontinued (Therapy completed) atorvastatin 40 mg oral tablet (11 sources) HMG-CoA Reductase Inhibitor Start: 04-04-2022 End: 05-13-2023 take 1 tablet by mouth at bedtime Atorvastatin 40 MG tablet Take 1 tablet by mouth at bedtime. 06/17/2022 05/07/2023 Discontinued (Therapy completed) calcium chloride 0.0014 meq/ml / potassium chloride [...] days. 420 mL 0 08/13/2022 09/08/2022 Discontinued Start: 08-12-2022 End: 08-13-2022 chlorhexidine (PERIDEX) 0.12 % oral solution 15 mL Docusate (1 source) Start: 08-12-2022 End: 08-13-2022 Docusate (COLACE) capsule 100 mg 0.4 ml enoxaparin sodium 100 mg/ml prefilled syringe (1 source) Low Molecular Weight Heparin Start: 08-12-2022 End: 08-13-2022 Enoxaparin Sodium (LOVENOX) injection 40 mg F-18 Fluorodeoxyglucose (FDG) IVPB 9-14.3 millicurie (1 source) Start: 09-14-2022 End: 09-14-2022 F-18 Fluorodeoxyglucose (FDG) IVPB 9-14.3 millicurie folic acid 1 mg oral tablet (10 sources) Start: 08-12-2022 End: 08-13-2022 take 2 mg by mouth once daily in the morning 2 mg, Oral, DAILY EVERY MORNING, First dose on Wed08/12/22 at 1300, Until Discontinued Start: 04-18-2022 End: 05-13-2023 folic acid 1 mg tablet 2 mg once daily. 0 04/18/2022 05/13/2023 Discontinued (Other) Comment on above: 2 mg once daily. gabapentin 300 mg oral capsule (11 sources) Anti-epileptic Agent Start: 08-12-2022 End: 08-13-2022 Gabapentin (NEURONTIN) capsule 300 mg Start: 03-26-2022 take 2 capsules by m outh once daily gabapentin (NEURONTIN) 300 mg capsule Take 2 capsules by mouth once daily. 0 03/26/2022 Active take 1 capsule by mo uth twice daily in the morning, then take 3 capsules by mouth in the evening Gabapentin 100 MG capsule Take 1-3 capsules by mouth 2 times daily. Takes 100mg capsule in am and three 100mg capsules in pm Active Comment on above: Take 2 capsules by m outh once daily. 1 ml heparin sodium, porcine 5000 unt/ml prefilled syringe (1 source) Unfractionated Heparin, Anti-coagulant Start: 2022 End: 2022 Heparin injection 5,000 Units 1 ml hydrALAZINE hydrochloride 20 mg/ml injection (1 source) Arteriolar Vasodilator Start: 2022 End: 2022 take 10 mg intravenously every six hours as needed hydrALAZINE (APRESOLINE) injection 10 mg hydroxychloroquine sulfate 200 mg oral tablet (11 sources) Antimalarial, Antirheumatic Agent Start: 2022 End: 2022 take 100 mg by mouth once daily at bedtime 100 mg, Oral, DAILY AT BEDTIME, First dose on Wed08/12/22 at 2100, Until Discontinued Start: 03-26-2022 End: 08-13-2022 take 1 tablet by mouth once daily hydrOXYchloroQUINE (PLAQUENIL) 200 mg tablet Take 1 tablet by mouth once daily. 0 03/26/2022 Active Start: 03-26-2022 End: 12-18-2022 take 0.5-1 tablets by mouth twice daily, then take 1 tablet by mouth in the morning, then take 0.5 tablet by mouth in the evening Hydroxychloroquine 200 MG tablet Take 0.5-1 tablets by mouth 2 times daily. Reports taking one 200mg in am and 0.5 tab in evening 0 03/26/2022 12/18/2022 Discontinued (Therapy completed) Comment on above: Take 1 tablet by shweta th once daily. labetalol (NORMODYNE) 10 mg in Sodium chloride 0.9%, with overfill 62 mL (total volume) IVPB (1 source) Start: End: take 10 mg intravenously every six hours as needed labetalol (NORMODYNE) 10 mg in Sodium chloride 0.9%, with overfill 62 mL (total volume) IVPB leucovorin 15 mg oral tablet (10 sources) Folate Analog Start: End: take 1 tablet by mouth every week leucovorin (LEUCOVORIN) 15 mg tablet Take 1 tablet by mouth one time a week. 0 07/28/2021 05/13/2023 Discontinued (Other) Comment on above: Take 1 tablet by shweta th one time a week. losartan potassium 100 mg oral tablet (9 sources) Angiotensin 2 Receptor Piedad Start: End: take 1 tablet by mouth once daily losartan (COZAAR) 100 mg tablet Take 1 tablet by mouth once daily. 0 03/25/2022 05/13/2023 Discontinued (Other) Comment on above: Take 1 tablet by shweta th once daily. melatonin 3 mg oral tablet (1 source) Start: End: Melatonin tablet 6 mg methotrexate 2.5 mg oral tablet (11 sources) Folate Analog Metabolic Inhibitor Start: End: methotrexate (TREXALL) tablet; dose = 10 mg Start: 08-13-2022 End: 08-13-2022 methotrexate (TREXALL) table t; dose = 10 mg Start: 03-26-2022 take 1 tablet by shweta th every week methotrexate 2.5 mg tablet Take 1 tablet by mouth one time a week. 0 03/26/2022 Active Start: 03-26-2022 End: 12-18-2022 take 4 tablets by mouth every week, then take 4 tablets by mouth in the morning, then take 4 tablets by mouth in the evening methotrexate 2.5 MG tablet Take 4 tablets by mouth Once a week. Wednesdays- takes 4 tabs in am and 4 tabs in pm 0 03/26/2022 12/18/2022 Discontinued (Therapy completed) Comment on above: Take 1 tablet by shweta th one time a week. 24 hr metoprolol succinate 50 mg extended release oral tablet (11 sources) beta-Adrenergic Piedad Start: 05-03-19 End: 05-07-19 take 1 tablet by mouth once daily in the morning Metoprolol succinate 50 MG tablet XL Take 1 tablet by mouth daily every morning. 05/03/2022 05/07/2023 Discontinued (Therapy completed) Comment on above: Take 1 tablet by shweta th once daily. Ondansetron 4mg/2ml (ZOFRAN) injection 4 mg (1 source) Start: 08-13-19 End: 08-14-19 take 4 mg intravenously every six hours as needed Ondansetron 4mg/2ml (ZOFRAN) injection 4 mg oxyCODONE hydrochloride 5 mg oral tablet (4 sources) Opioid Agonist Start: 08-14-19 End: 09-09-19 take 1 tablet by mouth every six hours as needed for pain oxyCODONE 5 MG tablet Indications: Squamous cell carcinoma of floor of mouth Take 1 tablet by mouth every 6 hours as needed for Moderate Pain for up to 7 days. 28 tablet 0 08/13/2022 09/08/2022 Discontinued Start: 08-12-2022 End: 08-13-2022 take 1 tablet by mouth every four hours as needed oxyCODONE (ROXICODONE) tablet 5 mg Polyethylene glycol (MIRALAX) packet 17 g (1 source) Start: 08-12-2022 End: 08-13-2022 Polyethylene glycol (MIRALAX) packet 17 g Potassium (6 sources) End: 05-07-2023 take 1 tablet by mouth once daily in the morning POTASSIUM PO Take 1 tablet by mouth daily every morning. For leg cramps (over the counter) 05/07/2023 Discontinued (Therapy completed) take 1 tablet by shweta th once daily in the morning POTASSIUM PO Take 1 tablet by mouth rehan y every morning. For leg cramps (over the counter) 0 Active Promethazine (1 source) Phenothiazine Start: 08-12-2022 End: 08-13-2022 take 1 tablet by mouth every six hours as needed Promethazine HCl (PHENERGAN) tablet 12.5 mg Senna Leaves (1 source) Start: 08-13-2022 End: 08-13-2022 Senna (SENOKOT) tablet 8.6 mg sennosides, jail 8.6 mg oral tablet (3 sources) Start: 08-14-2022 End: 09-08-2022 take 1 tablet by mouth once daily Senna 8.6 MG tablet Take 1 tablet by mouth daily. 0 08/14/2022 09/08/2022 Discontinued 20 ml sodium chloride 9 mg/ml injection (2 sources) Start: 09-14-2022 End: 09-14-2022 Sodium chloride (PF) 0.9 % injection 10-100 mL Start: 08-12-2022 End: 08-13-2022 Sodium chloride 0.9% IV solu tion 250 mL traMADol hydrochloride 50 mg oral tablet (6 sources) Opioid Agonist Start: 06-16-2022 End: 08-13-2022 take 1 tablet by mouth three times daily as needed traMADol 50 MG tablet Take 1 tablet by mouth 3 times daily as needed. 08/04/22- rare use per patient 0 06/16/2022 08/13/2022 Discontinued (Stop Taking at Discharge) End: 05-07-2023 take 1 tablet by mouth every six hours as needed traMADol 50 MG tablet Take 1 tablet by mouth every 6 hours as needed. 05/07/2023 Discontinued (Therapy completed) Problems Active Problems Problem Classification Problem Date Documented Da te Episodic/Chronic Cancer of breast (8 sources) Intraductal carcinoma in situ of left breast; Translations: [Intraductal carcinoma in situ of left breast] Onset: 05-04-2022 Chronic Cancer of bronchus; lung (3 sources) Non-small cell lung cancer; Translations: [Malignant neoplasm of unspecified part of left bronchus or lung] Onset: 09-01-2022 09-01-2022 Chronic Cancer of head and neck (18 sources) Squamous cell carcinoma of floor of mouth; Translations: [Malignant neoplasm of floor of mouth, unspecified] Onset: 08-12-2022 Chronic Disorders of lipid metabolism (2 sources) Hyperlipidemia, unspecified; Translations: [Hyperlipidemia, unspecified] Onset: 08-04-2022 Chronic Essential hypertension (2 sources) Essential (primary) hypertension; Translations: [Essential (primary) hypertension] Onset: 08-04-2022 Chronic Immunity disorders (6 sources) Immunosuppression; Translations: [Immunodeficiency, unspecified] Onset: 08-05-2022 08-05-2022 Chronic Other lower respiratory disease (2 sources) Lung mass; Translations: [Other nonspecific abnormal finding of lung field] 09-03-2022 Episodic Residual codes; unclassified (7 sources) Estrogen receptor positive tumor; Translations: [Estrogen receptor positive status [ER+]] Onset: 05-04-2022 Episodic Rheumatoid arthritis and related disease (2 sources) Rheumatoid arthritis, unspecified; Translations: [Rheumatoid arthritis, unspecified] Onset: 08-04-2022 Chronic Unclassified (2 sources) Post Op Visit; Translations: [Post Op Visit] Onset: 08-20-2022 Past or Other Problems Problem Classification Problem Date Documented Date Episodic/Chronic Cancer of breast (10 sources) History of malignant neoplasm of breast; Translations: [Personal history of malignant neoplasm of breast] Onset: 05-04-2022 Episodic Mood disorders (6 sources) Mood disorders Onset: 07-21-2022 Resolved: 05-07-2023 07-21-2022 Other connective tissue disease (2 sources) Personal history of other diseases of the musculoskeletal system and connective tissue; Translations: [Personal history of other diseases of the musculoskeletal system and connective tissue] Onset: 08-04-2022 Episodic Other lower respiratory disease (2 sources) Other nonspecific abnormal finding of lung field; Translations: [Other nonspecific abnormal finding of lung field] Onset: 09-14-2022 Episodic Residual codes; unclassified (6 sources) History of repair of aneurysm of abdominal aorta; Translations: [Other specified postprocedural states] Onset: 08-05-2022 08-05-2022 Episodic Residual codes; unclassified (1 source) Estrogen receptor positive status [ER+]; Translations: [Estrogen receptor positive status (ER+)] Onset: 05-04-2022 Episodic Residual codes; unclassified (2 sources) Other specified health status; Translations: [Other specified health status] Onset: 08-07-2022 Episodic Residual codes; unclassified (2 sources) Other specified postprocedural states; Translations: [Other specified postprocedural states] Onset: 08-04-2022 Episodic Unclassified (2 sources) Onset: 12-18-2022 Resolved: 05-07-2023 12-18-2022 Urinary tract infections (2 sources) Urinary tract infection, site not specified; Translations: [Urinary tract infection, site not specified] Onset: 11-03-2016 Episodic Results Test Name Value Interpretation Reference Range Facility OVon 05-13-2023 CNOV Office Visit ([facility] ) -------- SARAH DAN ([id number]) 1950 F Date Time Provider Department 05/13/23 3:00 PM ROXANNE GODFREY [facility] During your visit today, we recorded the following information about you: Pulse Respiration Blood pressure Weight 83/minute 14/minute 167/94 63.5 kg Roxanne Godfrey MD 05/13/2023 4:20 PM Signed May 13, 2023 Sarah Dan 1950 [place]: Cookie is here for her yearly checkup. 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 She took Arimidex for 5 years and has been under surveillance only. Since I last saw her she has had quite a bit of new health issues. Most specifically she was diagnosed with an oral cancer found after she broke her dentures and her dentist examined her. She had surgery to excise the oral cancer and this was followed by both radiation therapy and chemotherapy which she finished in October 2022. She has had a number of different problems since her chemo and radiation. 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 That does help a little bit but certainly does not completely resolve the symptoms. She has had some episodes of losing her balance and falling. They did do a CT scan of her head which she tells me was negative. She also has been having memory lapses. She has had some minor scrapes from her falls. She uses a walker sometimes but not all of the time. I strongly urged her to at least use a 3 point cane, if not her walker. She does continue to follow with her oncologist in [place]. She is having no new pulmonary, GI, or long bone symptoms. She has her ongoing symptoms with her rheumatoid arthritis. She feels nothing new or different in either breast. Her last mammogram was 05/06/2023. PAST MEDICAL HISTORY Diagnosis Date Essential hypertension Gout Mixed hyperlipidemia Oral cancer (HCC) Rheumatoid arthritis (HCC) PAST SURGICAL HISTORY Procedure Laterality Date EXCISION OF MALIGNANT LESION, COMPLICATED Oral cavity MASTECTOMY, PARTIAL Left TOTAL ABDOM HYSTERECTOMY Ovaries remain FAMILY HISTORY Problem Relation Age of Onset Breast Cancer Mother Hypertension Other Social History Tobacco Use Smoking status: Every Day Types: Cigarettes Substance Use Topics Alcohol use: Yes Comment: Social use Drug use: Never Current Outpatient Medications Medication Sig Dispense Refill warfarin (COUMADIN) 4 mg tablet gabapentin (NEURONTIN) 300 mg capsule Take 2 capsules by mouth once daily. hydrOXYchloroQUINE (PLAQUENIL) 200 mg tablet Take 1 tablet by mouth once daily. methotrexate 2.5 mg tablet Take 1 tablet by mouth one time a week. metoprolol succinate ER (TOPROL XL) 50 mg 24 hr tablet Take 1 tablet by mouth once daily. allopurinol (ZYLOPRIM) 300 mg tablet No current facility-administered medications for this visit. ALLERGIES No Known Allergies REVIEW OF SYSTEMS: GENERAL: No fever/chills. No unusual weight change. EYES: No blurring or diplopia. No drainage. No unusual vision loss. EARS: No earache. No drainage. No hearing loss. NOSE: No acute congestion or drainage. THROAT: No sore throat. No difficulty swallowing. Some issues with dry mouth and decreased taste since her radiation therapy to the oral cavity. CARDIAC: No chest pains or palpitations. No peripheral edema. PULMONARY: No cough, wheezing, shortness of breath, or hemoptysis. BREAST: See history. No new masses, redness or dimpling of the skin, or nipple discharge. GASTROINTESTINAL: No nausea or vomiting. No diarrhea. No constipation. No change in bowel habits. No abdominal pain. No blood in stool. No dark stool. No jaundice. GENITOURINARY: No dysuria or increased urinary frequency. No blood in the urine. No unusual vaginal bleeding. MUSCULOSKELETAL: Unsteady on her feet. Has had falls. Chronic joint pain from rheumatoid arthritis. No muscle weakness. No long bone pain. NEUROLOGIC: Paresthesias in her feet since chemotherapy. Issues with chemo brain and memory lapses. No transient paralysis. No weakness. No seizures. No syncope. HEMATOLOGIC/LYMPHATIC: No abnormal bruising or bleeding. No enlarged nodes. PSYCH: No anxiety or depression. PHYSICAL EXAM: BP 167/94 Pulse 83 Resp 14 Wt 140 lb (63.5kg) GENERAL: Alert and oriented. Recent and remote memory appears intact today. No acute distress. SKIN: Warm and dry. No jaundice. HEAD: Normocephalic and atraumatic. EYES: Pupils equal, round, and reactive to light. Extraocular movements intact. No scleral icterus. PHARYNX: Clear. I did not remove her dentures. Mild dryness of her oral mucosa. NECK: No cervical or supraclavicular lymphadenopathy. Thyroid palpably normal. Carotids 2+ bilaterally without bruits. Supple neck. HEART: Normal sinus rhythm without gallop or murmur. LUNGS: Full and perry (more content not included)... Normal [facility] SCREENINGon 05-06-2023 [facility] SCREENING * * *Final Report* * * DATE OF EXAM: May 06 2023 11:22AM [facility]HW [id number] - [facility] SCREENING / PROCEDURE REASON: [id number] bilateral screening mammogram with cad * * * * Physician Interpretation * * * * #[id number] - [facility] SCREENING BILATERAL DIGITAL SCREENING MAMMOGRAM WITH CAD: 05/06/2023 HISTORY: [id number] Bilateral Screening Mammogram With Cad. RESULT: TECHNIQUE: The study was acquired using full field digital technology and interpreted from soft copy. Current study was also evaluated with a Computer Aided Detection (CAD). Comparison is made to exams dated: 04/30/2022 mammogram and 04/24/2021 mammogram. There are scattered areas of fibroglandular density. There are benign vascular calcifications in both breasts. There also is a biopsy clip in the right breast. Additionally, there are benign post operative findings in the left breast. No significant masses, calcifications, or other findings are seen in either breast. There has been no significant interval change. IMPRESSION: BENIGN FINDING There is no mammographic evidence of malignancy. A 1 year screening mammogram is recommended. Sarah Ojeda M.D. er/penrad:05/06/2023 11:35:15 Dental Practitioner(s): Earlene Manzano, [facility] letter sent: Normal over 40 Mammogram BI-RADS: 2 Benign finding Multiple national specialty organizations have released breast cancer screening guidelines for women at average risk for developing breast cancer - guidelines that are based on both evidence and opinion, yet differ on when to start and how often to screen for breast cancer. With representation from Breast Imaging, Internal Medicine, Women's Health, Family Medicine, and Medical/Surgical Oncology, the [facility] has carefully reviewed the data and reached the following consensus: 1) All women should engage in shared decision-making with their providers to decide when to start and how often to screen; 2) All women should have the opportunity to start screening mammography at age 40; 3) For women ages 45-55, we recommend annual screening mammograms; 4) For women ages 55 and over, we support both the transition from an annual to a biennial interval if this aligns more with patient's values and preferences, or continuation with annual screening; 5) All women should discuss with their providers when to stop screening mammograms. Stationary Steam Engineer: Shaun Transcribe Date/Time: May 06 2023 11:01A Dictated by : SARAH OJEDA MD This examination was interpreted and the report reviewed and electronically signed by: SARAH OJEDA MD on May 06 2023 11:35AM EST [id number] Normal [facility] MG Breast Screeningon 2023 [facility] GLUCOSE POCon 09-14-2022 Glucose [Mass/Vol] 101 mg/dL High 70 - 99 mg/dL [facility] Interpretation and review of laboratory results Abnormal [facility] POC Sample Type CAPBL [facility] Test performed at address of the patient encounter. [facility] NUC PET LUNG CA (NSCLC)on NUC PET LUNG CA (NSCLC) EXAM: NUC PET LUNG CA (NSCLC), 09/14/2022 15:49 PM CLINICAL INDICATIONS: Left lung mass, biopsy proven SCC in setting of SCC of FOM, suspect possible second primary; , COMPARISON: No prior studies available for comparison. CT DOSE: DLP: 482 mGy x cm kVp: 120 TECHNIQUE: The patient's fasting blood glucose was 101 mg/dl. Approximately 70 minutes following the injection of 14.2 mCi of F-18 FDG, the patient was positioned on the Siemens Biograph mCT TOF< PET/CT-64, [facility] imaging unit. A low resolution non-contrast CT was obtained from the top of the head through the mid-femurs for use in attenuation correction and anatomic correlation. PET emission scans of this anatomic region were acquired shortly thereafter. Axial, sagittal, coronal and maximal intensity projection reconstruction images were presented for interpretation. FINDINGS: Head/Neck: Physiologic FDG uptake is noted in the salivary glands and tonsillar tissue. There is no hypermetabolic cervical or supraclavicular lymphadenopathy. Normal, intense physiologic uptake is noted in the cerebral cortex rider matter and subcortical nuclei without gross hypermetabolic abnormality. Chest: Hypermetabolic right paratracheal mass with maximum SUV of 20.6. Additional hypermetabolic mediastinal and left hilar adenopathy noted. Left hilar mass with maximum SUV of 21.9. Left hilar mass extends into the left lower lobe of the lung with maximum SUV of 15.8. Additional adjacent nodules are noted as well as a large consolidative mass extending to the pleura with maximum SUV of 20.8. Hypermetabolic pulmonary nodule within the right upper lobe measuring maximum SUV of 2.2, concerning despite mild FDG avidity. Physiologic FDG uptake is seen in the myocardium. Abdomen/Pelvis: Physiologic FDG uptake is seen throughout the liver, spleen and bowel. Atherosclerotic disease is seen. Stented abdominal aortic aneurysm noted. Physiologic FDG excretion is seen in the kidneys, ureters, and bladder. There are no hypermetabolic lesions in the adrenal glands. There is no hypermetabolic inguinal, retroperitoneal, paraaortic or portocaval lymphadenopathy. Musculoskeletal: There is physiologic FDG uptake throughout the axial and proximal appendicular skeleton. Degenerative changes within the spine. IMPRESSION: 1. Large hypermetabolic left lower lobe pulmonary mass extending to the pleura as well as to the left hilum. Adjacent small nodules also concerning. There is a right upper lobe pulmonary nodule which despite mild FDG avidity is worrisome for a metastatic lesion. 2. Hypermetabolic lymph nodes within the chest concerning for metastatic adenopathy. Normal [facility] PT Lungon 09-14-2022 IMPRESSION: 1. Large hypermetabolic left lower lobe pulmonary mass extending to the pleura as well as to the left hilum. Adjacent small nodules also concerning. There is a right upper lobe pulmonary nodule which despite mild FDG avidity is worrisome for a metastatic lesion. 2. Hypermetabolic lymph nodes within the chest concerning for metastatic adenopathy. 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 CT DOSE: DLP: 482 mGy x cm kVp: 120 TECHNIQUE: The patient's fasting blood glucose was 101 mg/dl. Approximately 70 minutes following the injection of 14.2 mCi of F-18 FDG, the patient was positioned on the Siemens Biograph mCT TOF< PET/CT-64, [facility] imaging unit. A low resolution non-contrast CT was obtained from the top of the head through the mid-femurs for use in attenuation correction and anatomic correlation. PET emission scans of this anatomic region were acquired shortly thereafter. Axial, sagittal, coronal and maximal intensity projection reconstruction images were presented for interpretation. FINDINGS: Head/Neck: Physiologic FDG uptake is noted in the salivary glands and tonsillar tissue. There is no hypermetabolic cervical or supraclavicular lymphadenopathy. Normal, intense physiologic uptake is noted in the cerebral cortex rider matter and subcortical nuclei without gross hypermetabolic abnormality. Chest: Hypermetabolic right paratracheal mass with maximum SUV of 20.6. Additional hypermetabolic mediastinal and left hilar adenopathy noted. Left hilar mass with maximum SUV of 21.9. Left hilar mass extends into the left lower lobe of the lung with maximum SUV of 15.8. Additional adjacent nodules are noted as well as a large consolidative mass extending to the pleura with maximum SUV of 20.8. Hypermetabolic pulmonary nodule within the right upper lobe measuring maximum SUV of 2.2, concerning despite mild FDG avidity. Physiologic FDG uptake is seen in the myocardium. Abdomen/Pelvis: Physiologic FDG uptake is seen throughout the liver, spleen and bowel. Atherosclerotic disease is seen. Stented abdominal aortic aneurysm noted. Physiologic FDG excretion is seen in the kidneys, ureters, and bladder. There are no hypermetabolic lesions in the adrenal glands. There is no hypermetabolic inguinal, retroperitoneal, paraaortic or portocaval lymphadenopathy. Musculoskeletal: There is physiologic FDG uptake throughout the axial and proximal appendicular skeleton. Degenerative changes within the spine. 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 CT DOSE: DLP: 482 mGy x cm kVp: 120 TECHNIQUE: The patient's fasting blood glucose was 101 mg/dl. Approximately 70 minutes following the injection of 14.2 mCi of F-18 FDG, the patient was positioned on the Siemens Biograph mCT TOF< PET/CT-64, [facility] imaging unit. A low resolution non-contrast CT was obtained from the top of the head through the mid-femurs for use in attenuation correction and anatomic correlation. PET emission scans of this anatomic region were acquired shortly thereafter. Axial, sagittal, coronal and maximal intensity projection reconstruction images were presented for interpretation. FINDINGS: Head/Neck: Physiologic FDG uptake is noted in the salivary glands and tonsillar tissue. There is no hypermetabolic cervical or supraclavicular lymphadenopathy. Normal, intense physiologic uptake is noted in the cerebral cortex rider matter and subcortical nuclei without gross hypermetabolic abnormality. Chest: Hypermetabolic right paratracheal mass with maximum SUV of 20.6. Additional hypermetabolic mediastinal and left hilar adenopathy noted. Left hilar mass with maximum SUV of 21.9. Left hilar mass extends into the left lower lobe of the lung with maximum SUV of 15.8. Additional adjacent nodules are noted as well as a large consolidative mass extending to the pleura with maximum SUV of 20.8. Hypermetabolic pulmonary nodule within the right upper lobe measuring maximum SUV of 2.2, concerning despite mild FDG avidity. Physiologic FDG uptake is seen in the myocardium. Abdomen/Pelvis: Physiologic FDG uptake is seen throughout the liver, spleen and bowel. Atherosclerotic disease is seen. Stented abdominal aortic aneurysm noted. Physiologic FDG excretion is seen in the kidneys, ureters, and bladder. There are no hypermetabolic lesions in the adrenal glands. There is no hypermetabolic inguinal, retroperitoneal, paraaortic or portocaval lymphadenopathy. Musculoskeletal: There is physiologic FDG uptake throughout the axial and proximal appendicular skeleton. Degenerative changes within the spine. IMPRESSION IMPRESSION: 1. Large hypermetabolic left lower lobe pulmonary mass extending to the pleura as well as to the left hilum. Adjacent small nodules also concerning. There is a right upper lobe pulmonary nodule which despite mild FDG avidity is worrisome for a metastatic lesion. 2. Hypermetabolic lymph nodes within the chest concerning for metastatic adenopathy. [facility] Radiology Study observation (narrative) [facility] PT LungOrdered By: Constanza stern on 09-14-2022 [facility] Work Phone: SURG PATH REQUESTon 09-15-19 Case Report Normal [facility] Comment on above: Result Comment: Surg ical Pathology Report Case: [id number] Authorizing Provider: MEET Menon/DEMETRICE Collected: 09/14/2022 12:19 PM Ordering Location[facility] Received: 09/14/2022 12:19 PM [place] Pathologist: Joo Tripathi MD, PhD Specimen: SURG PATH, [facility] Block, [id number], Blk F2, BRAF, NTRK, TMB, MET, KRAS, RET, EGFR, ALK, ROS-1, PDL1 IHC (22C3, Keytruda); Left Floor of Mouth, Excision Performed By: #### C HM7 #### [facility] (DEFAULT) [address] [place] [address] Clinical History Request received fro MEET Lee/DEMETRICE of [facility], [address] [place] [address], [place] [address], for BRAF, NTRK, TMB, MET, KRAS, RET, EGFR, ALK, ROS-1 and PDL1 IHC (22C3, Keytruda) testing on block marked F2 from [facility] in-house case, labeled [id number]. 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 Medical History: benign essential hypertension. Hyperlipidemia. Ductal carcinoma in situ of left breast. Malignant neoplasm of breast. Gout. Rheumatoid arthritis. Estrogen receptor positive status. Normal [facility] Comment on above: Performed By: #### C HM7 #### [facility] (DEFAULT) [address] [place] [address] Diagnosis Comments Normal [facility] Comment on above: Result Comment: PD-L 1 IHC 22C3 pharmDx is indicated as an aid in identifying HNSCC patients for treatment with KEYTRUDA? (pembrolizumab). See KEYTRUDA prescribing information for details. PD-L1 expression in HNSCC is determined by using Combined Positive Score (CPS), which is the number of PD-L1 staining cells (tumor cells, lymphocytes, macrophages*) divided by the total number of viable tumor cells, multiplied by 100. Although the result of the calculation can exceed 100, the maximum score is defined as CPS 100. CPS below 1 is usually considered negative for tumors at this site. *PD-L1 IHC 22C3 pharmDx is a FDA-approved manager of revenue diagnostic for pembrolizumab performed on [employer]. PD-L1 expression in head & neck squamous cell carcinoma is determined by manual quantification using Combined Positive Score (CPS), which is the number of PD-L1 staining cells (tumor cells, lymphocytes, macrophages) divided by the total viable tumor cells, multiplied by 100. Positivity is scored in viable tumor cells (partial or complete linear membrane staining at any intensity) and tumor-associated lymphocytes and macrophages (membrane and/or cytoplasmic staining at any intensity). Certain tissue processing factors such as decalcification, formalin fixation time outside an acceptable range (4 to 168 hrs), and prolonged time to fixation can affect PD-L1 staining/expression levels and results should be interpreted with caution in such instances. Additionally, tissue from older (greater than 5 yrs) formalin-fixed paraffin-embedded blocks may lose PD-L1 immunoreactivity. This assay is not validated for decalcified specimens. All controls show appropriate reactivity. All immunohistochemistry, in situ hybridization, and histochemical tests were developed by and are performed at the [facility] Clinical Laboratory, [address] [place] [address]. All tests reported here, except those addressing HER2 and PD-L1 expression as predictive markers, have not been cleared by or approved by the US Food and Drug Administration (FDA). The laboratory is regulated under CLIA as qualified to perform high-complexity testing. The tests are used for clinical purposes. They should not be regarded as investigational or for research. Performed By: #### C HM7 #### [facility] (DEFAULT) [address] [place] [address] Gross Description Normal [facility] Comment on above: Result Comment: The block, marked F2, from [facility] in-house case, [id number], is retrieved from storage and submitted to the [facility] Histology Laboratory for processing: BRAF, NTRK, TMB, MET, KRAS, RET, EGFR, ALK, ROS-1, PDL1 IHC (22C3, Keytruda) testing with only PD-L1 peformed here after discussion with ordering physician. Grosser for this case was: Anay Rodríguez For Immediate Release to [facility] Yes Performed By: #### C HM7 #### [facility] (DEFAULT) [address] [place] [address] Microscopic Description Normal [facility] Comment on above: Result Comment: Tiss ue was assessed by a molecular pathologist to select areas for analysis and to correlate immunostaining with histology. No morphologic assessment was requested. Performed By: #### C HM7 #### [facility] (DEFAULT) [address] [place] [address] Pathologic Diagnosis Normal [facility] Comment on above: Result Comment: [facility] Block: [id number] (08/12/2022) F. Left Floor of Mouth, Excision: PD-L1 22C3 expression: Negative, CPS = 0.8 Per submitting site, requested molecular studies will be performed at an outside laboratory COMMENT: The tumor lesion present in block F2 is small. Performed By: #### C HM7 #### [facility] (DEFAULT) [address] [place] [address] CYTOLOGY, NON-CUSTOMER SUCCESS DIRECTOR - FNA ONLY on 08-20-2022 CYTOLOGIC DIAGNOSIS Normal [facility] Comment on above: Result Comment: A. 4 R LYMPH NODE, FNA (CYTOLOGY AND CELL BLOCK): FINAL DIAGNOSIS: No Malignant Cells Are Identified Lymphoid Population (Cell Block Only) Immediate Study: Adequacy/Preliminary Diagnosis: Not Adequate ALFONSO Gaitan (ASCP), August 20, 2022 B. STATION 7 [...] Ashley Castañeda, CT (ASCP), August 20, 2022 FNA Performed By: Clinician Performed By: #### N ONGNFNA #### [facility] (DEFAULT) [address] [place] [address] Addendum Normal [facility] Comment on above: Result Comment: On 2022, Jaelyn NICHOLE submitted an order for additional stains/tests PDL1 IHC 22C3 and the tissue block(s) was retrieved from archive storage and submitted to the [facility] clinical histology laboratory for additional processing and staining. PD-L1 IHC 22C3 pharmDx Result: Negative. TPS: <1% Note: The results are reported as tumor proportion score (TPS). The PDL1 expression is evaluated for the membranous staining in tumor cells and is interpreted as positive if TPS ? 1% or negative if TPS < 1%. PD-L1 expression level TPS ? 50% may be of interest to treating physician but does not determine eligibility for KEYTRUDA? (pembrolizumab) monotherapy. The sample is adequate if ? 100 tumor cells are present. All controls show appropriate reactivity. All immunohistochemistry, in situ hybridization, and histochemical tests were developed by and are performed at the [facility], [address] [place] [address], [place] [address]. All tests reported here, except those addressing HER2 and PD-L1 expression as predictive markers, have not been cleared by or approved by the US Food and Drug Administration (FDA). The laboratory is regulated under CLIA as qualified to perform high-complexity testing. The tests are used for clinical purposes. They should not be regarded as investigational or for research. The case was reviewed by Dr. Wilian Louise, who selected the tissue block(s) for additional testing. Addendum electronically signed by Wilian Louise Jr., MD on 09/08/2022 at 1:32 PM Performed By: #### N ONGNFNA #### [facility] (DEFAULT) [address] [place] [address] Case Report [facility] Comment on above: Result Comment: [facility] Cytology Report Case: [id number] Authorizing Provider[facility] Collected: 08/20/2022 03:31 PM Ordering Location: [facility] Received: 08/20/2022 03:48 PM Hospital Pathologist: Milo Chapin MD Specimens: A) - LYMPH NODE FNA, 4R B) - LYMPH NODE FNA, station 7 C) - LYMPH NODE FNA, 4L D) - LUNG FNA, LLL lung Performed By: #### N ONGNFNA #### [facility] (DEFAULT) [address] [place] [address] Clinical History 71 year old woman history of breast CA, new LLL mass. [facility] Comment on above: Performed By: #### N ONGNFNA #### [facility] (DEFAULT) [address] [place] [address] Gross Description [facility] Comment on above: Result Comment: A. 4 R 9mL clear pink fld (RPMI) 3 pap stain slides 3 DQ stain slides 1 CB Time specimen placed in formalin: 08/20/22 at 16:05 Time specimen removed from formalin: 08/20/22 at 20:00 Total Fixation Time: 3 hours 55 minutes B. Station 7 9mL hazy red fld (RPMI) 2 pap stain slides 2 DQ stain slides 1 CB Time specimen placed in formalin: 08/20/22 at 16:06 Time specimen removed from formalin: 08/20/22 at 20:00 Total Fixation Time: 3 hours 54 minutes C. 4L 9mL hazy red fld (RPMI) 2 pap stain slides 2 DQ stain slides 1 CB Time specimen placed in formalin: 08/20/22 at 16:06 Time specimen removed from formalin: 08/20/22 at 20:00 Total Fixation Time: 3 hours 54 minutes D. LLL Lung 7.5mL red fld (RPMI) 2 pap stain slides 2 DQ stain slides 1 CB Time specimen placed in formalin: 08/20/22 at 16:07 Time specimen removed from formalin: 08/20/22 at 20:00 Total Fixation Time: 3 hours 53 minutes For Immediate Release to Patient's MyChart? Yes Performed By: #### N ONGNFNA #### [facility] (DEFAULT) [address] [address] CBC,PLATELETSon 08-13-2022 Hematocrit (Bld) [Volume fraction] 35.0 % Normal 34.9-44.3 [facility] Comment on above: Performed By: #### H EMOGC #### [facility] (DEFAULT) [address] [address] Hemoglobin (Bld) [Mass/Vol] 10.9 g/dL Low 11.4-15.2 [facility] Comment on above: Performed By: #### H EMOGC #### [facility] (DEFAULT) [address] [address] MCV (RBC) [Entitic vol] 94.6 fL Normal 79.6-97.7 [facility] Comment on above: Performed By: #### H EMOGC #### [facility] (DEFAULT) [address] [address] Mean Cell Hgb 29.5 pg Normal 25.9-33.9 [facility] Comment on above: Performed By: #### H EMOGC #### [facility] (DEFAULT) [address] [address] Mean Cell Hgb Conc 31.1 g/dL Low 31.4-35.9 [facility] Comment on above: Performed By: #### H EMOGC #### [facility] (DEFAULT) [address] [place] [address] Platelet mean volume (Bld) [Entitic vol] 9.2 fL Normal 8.5-12.2 [facility] Comment on above: Performed By: #### H EMOGC #### [facility] (DEFAULT) [address] [place] [address] Platelets (Bld) [#/Vol] 422 10*3/uL High 150-393 [facility] Comment on above: Performed By: #### H EMO #### [facility] (DEFAULT) [address] [place] [address] RBC (Bld) [#/Vol] 3.70 10*6/uL Low 3.91-5.04 [facility] Comment on above: Performed By: #### H EMO #### [facility] (DEFAULT) [address] [place] [address] RBC Distribution 15.4 % High 10.8-14.9 [facility] Comment on above: Performed By: #### H EMO #### [facility] (DEFAULT) [address] [place] [address] WBC (Bld) [#/Vol] 11.97 10*3/uL High 3.99-11.19 [facility] Comment on above: Performed By: #### H EMO #### [facility] (DEFAULT) [address] [place] [address] Erythrocyte distribution width (RBC) [Ratio] 15.4 % High 10.8 - 14.9 % [facility] Hematocrit (Bld) [Volume fraction] 35.0 % 34.9 - 44.3 % [facility] Hemoglobin (Bld) [Mass/Vol] 10.9 g/dL Low 11.4 - 15.2 g/dL [facility] Interpretation and review of laboratory results Abnormal [facility] MCH (RBC) [Entitic mass] 29.5 pg 25.9 - 33.9 pg [facility] MCHC (RBC) [Mass/Vol] 31.1 g/dL Low 31.4 - 35.9 g/dL [facility] MCV (RBC) [Entitic vol] 94.6 fL 79.6 - 97.7 fL [facility] Platelet mean volume (Bld) [Entitic vol] 9.2 fL 8.5 - 12.2 fL [facility] Platelets (Bld) [#/Vol] 422 10*3/uL High 150 - 393 K/uL [facility] RBC (Bld) [#/Vol] 3.70 10*6/uL Low [facility] WBC (Bld) [#/Vol] 11.97 10*3/uL High 3.99 - 11 .19 K/uL [facility] CHEM 7 (LYTES,BUN,CREA,GLUC) on 08-13-2022 Anion gap [Moles/Vol] 18 mmol/L High 7-17 [facility] Comment on above: Performed By: #### C HM7 #### [facility] (DEFAULT) [address] [address] Chloride [Moles/Vol] 104 mmol/L Normal 98-108 [facility] Comment on above: Performed By: #### C HM7 #### [facility] (DEFAULT) [address] [address] CO2 [Moles/Vol] 23 mmol/L Normal 21-31 [facility] Comment on above: Performed By: #### C HM7 #### [facility] (DEFAULT) [address] [address] Creatinine [Mass/Vol] 0.75 mg/dL Normal 0.50-1.20 [facility] Comment on above: Performed By: #### C HM7 #### [facility] (DEFAULT) [address] [address] GFR/1.73 sq M.predicted among non-blacks MDRD (S/P/Bld) [Vol rate/Area] 85 mL/min/{1.73_m2} Normal >=60 [facility] Comment on above: Result Comment: Repo rted eGFR is based on the CKD-EPI 2021 equation using creatinine, age, and sex. Performed By: #### C HM7 #### [facility] (DEFAULT) [address] [place] [address] Glucose [Mass/Vol] 115 mg/dL High 70-99 [facility] Comment on above: Performed By: #### C HM7 #### [facility] (DEFAULT) [address] [place] [address] Osmolality [Osmolality] 296 mosm/kg Normal 278-305 [facility] Comment on above: Performed By: #### C HM7 #### [facility] (DEFAULT) [address] [place] [address] Potassium [Moles/Vol] 4.7 mmol/L Normal 3.5-5.0 [facility] Comment on above: Performed By: #### C HM7 #### [facility] (DEFAULT) [address] [place] [address] Sodium [Moles/Vol] 140 mmol/L Normal 135-145 [facility] Comment on above: Performed By: #### C HM7 #### [facility] (DEFAULT) [address] [place] [address] Urea nitrogen [Mass/Vol] 16 mg/dL Normal 7-25 [facility] Comment on above: Performed By: #### C HM7 #### [facility] (DEFAULT) [address] [place] [address] Urea nitrogen/Creatinine [Mass ratio] 21 mg/mg Normal [facility] Comment on above: Performed By: #### C HM7 #### [facility] (DEFAULT) [address] [place] [address] Anion gap [Moles/Vol] 18 mmol/L High 7 - 17 mmol/L [facility] - [place] Chloride [Moles/Vol] 104 mmol/L 98 - 10 8 mmol/L [facility] CO2 [Moles/Vol] 23 mmol/L 21 - 31 mmol/L [facility] Creatinine [Mass/Vol] 0.75 mg/dL 0.50 - 1.20 mg/dL [facility] GFR/1.73 sq M.predicted CKD-EPI (S/P/Bld) [Vol rate/Area] 85 - PINF [facility] Comment on above: Reported eGFR is bas ed on the CKD-EPI 2020 equation using creatinine, age, and sex. Glucose [Mass/Vol] 115 mg/dL High 70 - 99 mg/dL [facility] Interpretation and review of laboratory results Abnormal [facility] Osmolality Calc [Osmolality] 296 [facility] Potassium [Moles/Vol] 4.7 mmol/L 3.5 - 5.0 mmol/L [facility] Sodium [Moles/Vol] 140 mmol/L 135 - 145 mmol/L [facility] Urea nitrogen [Mass/Vol] 16 mg/dL 7 - 25 mg/dL [facility] [place] Urea nitrogen/Creatinine [Mass ratio] 21 mg/mg [facility] ABORH TYPE RECONFIRMATIONon 08-12-2022 ABO/RH(D) TYPE Positive Normal [facility] Comment on above: Performed By: #### T YPEC #### [facility] (DEFAULT) [address] [place] [address] ABO/RH(D) TYPE Positive [facility] CBC AND ELECTRONIC DIFFon Basophils (Bld) [#/Vol] 0.05 10*3/uL Normal 0.00-0.15 [facility] Comment on above: Performed By: #### L [id number] #### [facility] [place] (DEFAULT) [address] [place] [address] Basophils/100 WBC (Bld) 0.5 % Normal [facility] Comment on above: Performed By: #### L [id number] #### [facility] [place] (DEFAULT) [address] [place] [address] DIFF STATUS Electronic Differential Normal [facility] Comment on above: Performed By: #### L [id number] #### [facility] [place] (DEFAULT) [address] [address] Eosinophils (Bld) [#/Vol] 0.08 10*3/uL Normal 0.00-0.42 [facility] Comment on above: Performed By: #### L [id number] #### [facility] (DEFAULT) [address] [place] [address] Eosinophils/100 WBC (Bld) 0.8 % Normal [facility] Comment on above: Performed By: #### L [id number] #### [facility] (DEFAULT) [address] [address] Hematocrit (Bld) [Volume fraction] 38.1 % Normal 34.9-44.3 [facility] Comment on above: Performed By: #### L [id number] #### [facility] (DEFAULT) [address] [address] Hemoglobin (Bld) [Mass/Vol] 11.7 g/dL Normal 11.4-15.2 [facility] Comment on above: Performed By: #### L [id number] #### [facility] (DEFAULT) [address] [address] Immature Grans % 0.6 % Normal [facility] Comment on above: Performed By: #### L [id number] #### [facility] [place] (DEFAULT) [address] [address] Immature Grans Absolute 0.06 K/uL Normal <=0.08 [facility] Comment on above: Performed By: #### L [id number] #### [facility] (DEFAULT) [address] [address] Lymphocytes (Bld) [#/Vol] 1.22 10*3/uL Normal 1.16-3.51 [facility] Comment on above: Performed By: #### L [id number] #### [facility] [place] (DEFAULT) [address] [address] Lymphocytes/100 WBC (Bld) 11.9 % Normal [facility] Comment on above: Performed By: #### L [id number] #### [facility] (DEFAULT) [address] [address] MCV (RBC) [Entitic vol] 96.0 fL Normal 79.6-97.7 [facility] Comment on above: Performed By: #### L [id number] #### [facility] (DEFAULT) [address] [place] [address] Mean Cell Hgb 29.5 pg Normal 25.9-33.9 [facility] Comment on above: Performed By: #### L [id number] #### [facility] (DEFAULT) [address] [address] Mean Cell Hgb Conc 30.7 g/dL Low 31.4-35.9 [facility] Comment on above: Performed By: #### L [id number] #### [facility] [place] (DEFAULT) [address] [address] Monocytes (Bld) [#/Vol] 0.80 10*3/uL Normal 0.22-0.87 [facility] Comment on above: Performed By: #### L [id number] #### [facility] [place] (DEFAULT) [address] [address] Monocytes/100 WBC (Bld) 7.8 % Normal [facility] Comment on above: Performed By: #### L [id number] #### [facility] [place] (DEFAULT) [address] [address] Nucleated RBC 0.0 /100 WBC Normal <=0.2 [facility] Comment on above: Performed By: #### L [id number] #### [facility] (DEFAULT) [address] [address] Platelet mean volume (Bld) [Entitic vol] 9.2 fL Normal 8.5-12.2 [facility] Comment on above: Performed By: #### L [id number] #### [facility] (DEFAULT) [address] [place] [address] Platelets (Bld) [#/Vol] 382 10*3/uL Normal 150-393 [facility] Comment on above: Performed By: #### L [id number] #### [facility] (DEFAULT) [address] [place] [address] RBC (Bld) [#/Vol] 3.97 10*6/uL Normal 3.91-5.04 [facility] Comment on above: Performed By: #### L [id number] #### [facility] (DEFAULT) [address] [place] [address] RBC Distribution 15.3 % High 10.8-14.9 [facility] Comment on above: Performed By: #### L [id number] #### [facility] (DEFAULT) [address] [place] [address] Segs + Bands Auto 78.4 % Normal [facility] Comment on above: Performed By: #### L [id number] #### [facility] (DEFAULT) [address] [place] [address] Segs + Bands,Absolute Auto 8.08 K/uL High 1.64-7.28 [facility] Comment on above: Performed By: #### L [id number] #### [facility] (DEFAULT) [address] [place] [address] WBC (Bld) [#/Vol] 10.29 10*3/uL Normal 3.99-11.19 [facility] Comment on above: Performed By: #### L [id number] #### [facility] (DEFAULT) [address] [place] [address] Basophils (Bld) [#/Vol] 0.05 10*3/uL 0.00 - 0.15 K/uL [facility] Basophils/100 WBC (Bld) 0.5 % [facility] Differential cell count method Nom (Bld) Electronic Differential [facility] Eosinophils (Bld) [#/Vol] 0.08 10*3/uL 0.00 - 0.42 K/uL [facility] Eosinophils/100 WBC (Bld) 0.8 % [facility] Erythrocyte distribution width (RBC) [Ratio] 15.3 % High 10.8 - 14.9 % [facility] Hematocrit (Bld) [Volume fraction] 38.1 % 34.9 - 44.3 % [facility] Hemoglobin (Bld) [Mass/Vol] 11.7 g/dL 11.4 - 15.2 g/dL [facility] Immature granulocytes (Bld) [#/Vol] 0.06 10*3/uL NINF - 0.08 K/uL [facility] Immature granulocytes/100 WBC (Bld) 0.6 % [facility] Interpretation and review of laboratory results Abnormal [facility] Lymphocytes (Bld) [#/Vol] 1.22 10*3/uL 1.16 - 3.51 K/uL [facility] Lymphocytes/100 WBC (Bld) 11.9 % [facility] MCH (RBC) [Entitic mass] 29.5 pg 25.9 - 33.9 pg [facility] MCHC (RBC) [Mass/Vol] 30.7 g/dL Low 31.4 - 35.9 g/dL [facility] MCV (RBC) [Entitic vol] 96.0 fL 79.6 - 97.7 fL [facility] Monocytes (Bld) [#/Vol] 0.80 10*3/uL 0.22 - 0.87 K/uL [facility] Monocytes/100 WBC (Bld) 7.8 % [facility] Neutrophils (Bld) [#/Vol] 8.08 10*3/uL High 1.64 - 7.28 K/uL [facility] Nucleated RBC/100 WBC (Bld) [Ratio] 0.0 % [facility] Platelet mean volume (Bld) [Entitic vol] 9.2 fL 8.5 - 12.2 fL [facility] Platelets (Bld) [#/Vol] 382 10*3/uL 150 - 393 K/uL [facility] RBC (Bld) [#/Vol] 3.97 10*6/uL [facility] Segmented neutrophils/100 WBC (Bld) 78.4 % [facility] WBC (Bld) [#/Vol] 10.29 10*3/uL 3.99 - 11 .19 K/uL [facility] CHEM 7 (LYTES,BUN,CREA,GLUC) on 08-12-2022 Anion gap [Moles/Vol] 13 mmol/L Normal 7-17 [facility] Comment on above: Performed By: #### C HM7 #### [facility] (DEFAULT) [address] [place] [address] Chloride [Moles/Vol] 106 mmol/L Normal 98-108 [facility] Comment on above: Performed By: #### C HM7 #### [facility] (DEFAULT) [address] [place] [address] CO2 [Moles/Vol] 25 mmol/L Normal - [facility] Comment on above: Performed By: #### C HM7 #### [facility] (DEFAULT) [address] [place] [address] Creatinine [Mass/Vol] 0.81 mg/dL Normal 0.50-1.20 [facility] Comment on above: Performed By: #### C HM7 #### [facility] (DEFAULT) [address] [place] [address] GFR/1.73 sq M.predicted among non-blacks MDRD (S/P/Bld) [Vol rate/Area] 77 mL/min/{1.73_m2} Normal >=60 [facility] Comment on above: Result Comment: Repo rted eGFR is based on the CKD-EPI 2020 equation using creatinine, age, and sex. Performed By: #### C HM7 #### [facility] (DEFAULT) [address] [place] [address] Glucose [Mass/Vol] 94 mg/dL Normal 70-99 [facility] Comment on above: Performed By: #### C HM7 #### [facility] (DEFAULT) [address] [place] [address] Osmolality [Osmolality] 295 mosm/kg Normal 278-305 [facility] Comment on above: Performed By: #### C HM7 #### [facility] (DEFAULT) [address] [place] [address] Potassium [Moles/Vol] 4.3 mmol/L Normal 3.5-5.0 [facility] Comment on above: Performed By: #### C HM7 #### [facility] (DEFAULT) [address] [place] [address] Sodium [Moles/Vol] 140 mmol/L Normal 135-145 [facility] Comment on above: Performed By: #### C HM7 #### [facility] (DEFAULT) [address] [place] [address] Urea nitrogen [Mass/Vol] 18 mg/dL Normal 7-25 [facility] Comment on above: Performed By: #### C HM7 #### [facility] (DEFAULT) [address] [place] [address] Urea nitrogen/Creatinine [Mass ratio] 22 mg/mg Normal [facility] Comment on above: Performed By: #### C HM7 #### [facility] (DEFAULT) [address] [place] [address] Anion gap [Moles/Vol] 13 mmol/L 7 - 17 mmol/L [facility] Chloride [Moles/Vol] 106 mmol/L 98 - 10 8 mmol/L [facility] CO2 [Moles/Vol] 25 mmol/L 21 - 31 mmol/L [facility] Creatinine [Mass/Vol] 0.81 mg/dL 0.50 - 1.20 mg/dL [facility] GFR/1.73 sq M.predicted CKD-EPI (S/P/Bld) [Vol rate/Area] 77 - PINF [facility] Comment on above: Reported eGFR is bas ed on the CKD-EPI 2020 equation using creatinine, age, and sex. Glucose [Mass/Vol] 94 mg/dL 70 - 99 mg/dL [facility] Osmolality Calc [Osmolality] 295 [facility] Potassium [Moles/Vol] 4.3 mmol/L 3.5 - 5.0 mmol/L [facility] Sodium [Moles/Vol] 140 mmol/L 135 - 145 mmol/L [facility] Urea nitrogen [Mass/Vol] 18 mg/dL 7 - 25 mg/dL [facility] Urea nitrogen/Creatinine [Mass ratio] 22 mg/mg [facility] CONTINUOUS CARDIAC MONITORIN G STRIPon 08-12-2022 [facility] CONTINUOUS CARDIAC MONITORIN G STRIPOrdered By: Unassigned Pacs on 08-12-2022 [facility] Work Phone: SURG PATH REQUESTon 08-13-19 Addendum Normal [facility] Comment on above: Result Comment: On 2022, Dr. Ck Pringle submitted an order for additional stains/tests MMR and the tissue block(s) was retrieved from archive storage and submitted to the [facility] clinical histology laboratory for additional processing and staining. Also, submitted is an order for molecular test XT on case [id number], which was already signed out by the case pathologist. The case was reviewed by Dr. Meredith Boswell, who selected the tissue block(s) for additional molecular testing. The tissue block was retrieved from storage and submitted to the pathology laboratory for additional cutting. The materials were sent to [employer] [address] [place] [address], [address], [place] [address]. The results will be issued in [facility]. Mismatch Repair Protein (MMR) Nuclear Expression by IHC: MLH1: Present/intact PMS2: Present/intact MSH2: Present/intact MSH6: Present/intact IHC Interpretation: No loss of nuclear expression of MMR proteins: low probability of microsatellite instability-high (MSI-H)# # There are exceptions to the above IHC interpretations. These results should not be considered in isolation, and clinical correlation with genetic counseling is recommended to assess the need for germline testing. All controls show appropriate reactivity. All immunohistochemistry, in situ hybridization, and histochemical tests were developed by and are performed at the [facility], [address] [place] [address], [place] [address]. All Immunofluorescent (IF) tests were developed by and are performed at the [facility], [address] [place] [address], [place] [address]. All tests reported here, except those addressing HER2 overexpression as a predictive marker, have not been cleared by or approved by the [place] Food and Drug Administration (FDA). The laboratory is regulated under CLIA as qualified to perform high-complexity testing. The tests are used for clinical purposes. They should not be regarded as investigational or for research. The mismatch repair proteins are evaluated by immunohistochemistry on formalin-fixed, paraffin embedded tissue, using clone [id number] for MLH1, clone [id number] for PMS2, clone [id number] for MSH2, and clone [id number] for MSH6, and [place] [employer] Detection on the [employer] Ultra Platform. Convincing nuclear staining in > 1% of tumor cells that is as strong as internal control is considered positive. Addendum electronically signed by Meredith Boswell MD on 09/24/2022 at 9:28 AM Performed By: #### S URGP #### [facility] (DEFAULT) [address] [place] [address] Case Report Normal [facility] Comment on above: Result Comment: Surg ical Pathology Report Case: [id number] Authorizing Provider: Etienne Singh MD Collected: 08/12/2022 11:43 AM Ordering Location[facility] Received: 08/12/2022 11:56 AM Pathologist: Meredith Boswell MD Intraop: Judah Lama MD Specimens: A) - SURG PATH, Lateral margin B) - SURG PATH, Superior margin C) - SURG PATH, Inferior margin D) - SURG PATH, Medial margin E) - SURG PATH, Deep margin F) - SURG PATH, Left floor of mouth excision, stitch = medial Performed By: #### S URGP #### [facility] (DEFAULT) [address] [place] [address] Clinical History 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 Medical History: Benign essential hypertension. Hyperlipidemia. Ductal carcinoma in situ of left breast. Malignant neoplasm of breast. Gout. Rheumatoid arthritis. Estrogen receptor positive status. Normal [facility] Comment on above: Performed By: #### S URGP #### [facility] (DEFAULT) [address] [place] [address] Gross Description Normal [facility] Comment on above: Result Comment: The specimens are received in six properly labeled containers with the patient's name and accession number. A. The specimen is designated lateral margin and consists of a 1.5 x 0.4 x 0.2 cm portion of meza-white, irregular tissue. The specimen is entirely submitted for frozen sectioning and resubmitted as received in cassette A1. TE 1 Note: The specimen may not survive processing. B. The specimen is designated superior margin and consists of a 1.8 x 0.3 x 0.2 cm portion of meza-white, focally cauterized tissue. The specimen is entirely submitted for frozen section and resubmitted as received in cassette B1. TE 1 Note: The specimen may not survive processing. C. The specimen is designated inferior margin and consists of a 0.6 x 0.2 x 0.1 cm portion of tissue. The specimen is entirely submitted for frozen section and exhausted. D. The specimen is designated medial margin and consists of a 0.3 x 0.2 x 0.1 cm portion of meza-white, cauterized tissue fragment. The specimen is entirely submitted for frozen section and resubmitted as received in cassette D1. TE 1 Note: The specimen may not survive processing. E. The specimen is designated deep margin and consists of a 0.4 x 0.3 x 0.2 cm meza-brown, cauterized tissue fragment. The specimen is entirely submitted for frozen section and resubmitted as received in cassette E1. TE 1 Note: The specimen may not survive processing. F. The specimen is designated left floor of mouth excision, stitch = medial and consists of a 1.8 x 1.6 cm mucosal resection excised to a maximum depth of 0.5 cm. It is oriented with a single stitch designating medial. The mucosal surface exhibits a 0.9 x 0.9 cm meza-white, flat, irregular, and ill defined lesion remaining 0.3 cm from anterior, 0.4 cm from medial, 0.7 cm from posterior, and 0.4 cm from lateral margins. The specimen is inked as follows: anterior = blue, posterior = green, medial = orange, lateral = yellow, and deep = black. The specimen is serially sectioned from anterior to posterior to reveal meza-brown cut surfaces with the previously described lesion extending approximately 0.1 cm superficially into the underlying tissue remaining 0.5 cm from the deep margin. No areas of hemorrhage, necrosis, or calcifications are present. TE 5 Summary of Cassettes: F1, anterior edge, entirely perpendicular; F2-F4, serial sequential sections containing entire lesion submitted from anterior to posterior; F5, posterior edge, entirely perpendicular Lab Use Only: JobID [id number] Grosser for this case was: Sneha Frias Performed By: #### S URGP #### [facility] ([facility]) [address] [place] [address] Intraoperative Diagnosis Normal [facility] Comment on above: Result Comment: A1. Lateral margin (Frozen section performed): For Immediate Release to Patient's MyChart? Yes Squamous dysplasia, favor low grade. Note: Reported to Dr. Singh at 12:33 p.m. on 08/12/2022. B1. Superior margin (Frozen section performed): Negative for dysplasia and negative for carcinoma. Note: Reported to Dr. Singh at 12:33 p.m. on 08/12/2022. C1. Inferior margin (Frozen section performed): Negative for dysplasia and negative for carcinoma. Note: Reported to Dr. Singh at 12:33 p.m. on 08/12/2022. D1. Medial margin (Frozen section performed): Negative for dysplasia and negative for carcinoma. Note: Reported to Dr. Singh at 12:33 p.m. on 08/12/2022. E1. Deep margin (Frozen section performed): Benign soft tissue. Note: Reported to Dr. Singh at 12:33 p.m. on 08/12/2022. Intraoperative Gyn: Judah Lama MD Performed By: #### S URGP #### [facility] (DEFAULT) [address] [place] [address] Microscopic Description A microscopic examination was performed. Normal [facility] Comment on above: Performed By: #### S URGP #### [facility] (DEFAULT) [address] [place] [address] Pathologic Diagnosis Normal [facility] Comment on above: Result Comment: A. L ateral margin, excision: Squamous mucosa, negative for carcinoma. B. Superior margin, excision: Squamous mucosa, negative for carcinoma. C. Inferior margin, excision: Squamous mucosa, negative for carcinoma. D. Medial margin, excision: Squamous mucosa, negative for carcinoma. E. Deep margin, excision: Skeletal muscle, negative for carcinoma. F. Left floor of mouth, excision: Superficially invasive squamous cell carcinoma (0.9 cm). SYNOPTIC REPORT FOR CANCER OF ORAL CAVITY: [...] with the guidelines of the [employer] Protocols and the AJCC Cancer Staging Manual, 8th edition, 2017, for the reporting of cancer specimens. Performed By: #### S URGP #### [facility] (DEFAULT) [address] [place] [address] CT NECK WITH CONTRASTon 07-14 CT NECK WITH CONTRAST EXAM: CT NECK WITH CONTRAST, 08/04/2022 17:30 PM COMPARISON: None. CLINICAL INDICATIONS: 71 years Female SCCis of left FOM, staging imaging; RELEVANT CLINICAL HISTORY: C04.9:Squamous cell carcinoma of floor of mouth TECHNIQUE: A series of transaxial multislice computerized tomographic images are obtained with helical technique from top of aortic arch through skull base following bolus intravenous administration of nonionic contrast. Axial 3 mm and coronal and sagittal 2 mm reformats are provided. CONTRAST: iohexol (OMNIPAQUE) 350 MG/ML injection 1-171 mL; Route of Administration: Intravenous; Dose: 75 mL. FINDINGS: Patient is edentulous. No obvious oral cavity soft tissue masses are identified on. No mandibular osseous destruction is identified. Aerodigestive tract structures otherwise are normal in appearance. No pathologic-appearing cervical lymphadenopathy. Major salivary glands are unremarkable. Thyroid gland is unremarkable. Visualized skull base, sinuses, and orbits are unremarkable. Multiple images of the cervical spine with reversal cervical lordosis. No suspicious lytic or blastic lesions There are enlarged, pathologic-appearing lymph nodes in the right upper mediastinum, largest measures 2.2 x 1.3 cm on series 3 image 79, and another measures 1.4 x 1.1 cm on image 91. Findings in the chest are reported separately on the same day chest CT. IMPRESSION: No visible oral cavity mass on CT. No cervical lymphadenopathy. Pathologic right upper mediastinal lymphadenopathy. Please see separate chest CT for further description of the intrathoracic findings. Normal [facility] SURG PATH REQUESTon 08-06-19 23 Case Report Normal [facility] Comment on above: Result Comment: Surg ical Pathology Report Case: [id number] Authorizing Provider: Shante Garcia PAC Collected: 08/05/2022 11:28 AM Ordering Location: [facility] SANDY Received: 08/05/2022 11:28 AM ROSANA Pathologist: Meredith Boswell MD Specimen: SURG PATH, Floor of mouth mucosa Performed By: #### C HM7 #### [facility] (DEFAULT) [address] [place] [address] Gross Description Normal [facility] Comment on above: Result Comment: The following material(s) are received from [facility], [address] [place] [id number] with an identifying Surgical Pathology Report, along with a copy of the Immunohistochemistry / In Situ Hybridization (KARIN) Report: 4 H&E slide(s), 2 non-H&E slide(s) labeled [id number]. Outside pathology materials are returned in sixty (60) days under separate cover with our number recorded on them. Grosser for this case was: Vaishali Castillo For Immediate Release to Patient's MyChart? Yes Performed By: #### C HM7 #### [facility] ([facility] [address] [place] [address] Microscopic Description A microscopic examination was performed. Normal [facility] Comment on above: Performed By: #### C HM7 #### [facility] (DEFAULT) [address] [address] Pathologic Diagnosis Normal [facility] Comment on above: Result Comment: Outs blue Slides: [id number] (06/18/22) Floor of mouth mucosa, incisional biopsy: High grade dysplasia. Performed By: #### C HM7 #### [facility] [address] [place] [address] CBC AND ELECTRONIC DIFFon Basophils (Bld) [#/Vol] 0.04 10*3/uL Normal 0.00-0.15 [facility] Comment on above: Performed By: #### C HM7 #### [facility] (DEFAULT) [address] [place] [address] 37859 Basophils/100 WBC (Bld) 0.4 % Normal [facility] Comment on above: Performed By: #### C HM7 #### [facility] (DEFAULT) [address] [address] DIFF STATUS Electronic Differential Normal [facility] Comment on above: Performed By: #### Xavier HM7 #### [facility] [address] [place] [address] 55337 Eosinophils (Bld) [#/Vol] 0.09 10*3/uL Normal 0.00-0.42 [facility] Comment on above: Performed By: #### C HM7 #### [facility] (DEFAULT) [address] [place] [address] 04500 Eosinophils/100 WBC (Bld) 1.0 % Normal [facility] Comment on above: Performed By: #### C HM7 #### [facility] (DEFAULT) [address] [place] [address] 35166 Hematocrit (Bld) [Volume fraction] 38.5 % Normal 34.9-44.3 [facility] Comment on above: Performed By: #### C HM7 #### [facility] (DEFAULT) [address] [place] [address]4032 Hemoglobin (Bld) [Mass/Vol] 11.8 g/dL Normal 11.4-15.2 [facility] Comment on above: Performed By: #### C HM7 #### [facility] (DEFAULT) [address] [address] Immature Grans % 0.5 % Normal [facility] Comment on above: Performed By: #### C HM7 #### [facility] (DEFAULT) [address] [address] Immature Grans Absolute 0.05 K/uL Normal <=0.08 [facility] Comment on above: Performed By: #### C HM7 #### [facility] (DEFAULT) [address] [place] [address] 12592 Lymphocytes (Bld) [#/Vol] 1.81 10*3/uL Normal 1.16-3.51 [facility] Comment on above: Performed By: #### C HM7 #### [facility] (DEFAULT) [address] [address] Lymphocytes/100 WBC (Bld) 19.3 % Normal [facility] Comment on above: Performed By: #### C HM7 #### [facility] (DEFAULT) [address] [place] [address] 81499 MCV (RBC) [Entitic vol] 93.9 fL Normal 79.6-97.7 [facility] Comment on above: Performed By: #### C HM7 #### [facility] (DEFAULT) [address] [place] [address] 75366 Mean Cell Hgb 28.8 pg Normal 25.9-33.9 [facility] Comment on above: Performed By: #### C HM7 #### [facility] (DEFAULT) [address] [place] [address] 02811 Mean Cell Hgb Conc 30.6 g/dL Low 31.4-35.9 [facility] Comment on above: Performed By: #### C HM7 #### [facility] (DEFAULT) [address] [place] [address] 66251 Monocytes (Bld) [#/Vol] 0.91 10*3/uL High 0.22-0.87 [facility] Comment on above: Performed By: #### C HM7 #### [facility] (DEFAULT) [address] [place] [address] 78694 Monocytes/100 WBC (Bld) 9.7 % Normal [facility] Comment on above: Performed By: #### C HM7 #### [facility] (DEFAULT) [address] [place] [address] 88234 Nucleated RBC 0.0 /100 WBC Normal <=0.2 [facility] Comment on above: Performed By: #### C HM7 #### [facility] (DEFAULT) [address] [place] [address] 08030 Platelet mean volume (Bld) [Entitic vol] 9.4 fL Normal 8.5-12.2 [facility] Comment on above: Performed By: #### C HM7 #### [facility] (DEFAULT) [address] [place] [address] 09376 Platelets (Bld) [#/Vol] 410 10*3/uL High 150-393 [facility] Comment on above: Performed By: #### Xavier HM7 #### [facility] (DEFAULT) [address] [place] [address] 76586 RBC (Bld) [#/Vol] 4.10 10*6/uL Normal 3.91-5.04 [facility] Comment on above: Performed By: #### Xavier HM7 #### [facility] (DEFAULT) [address] [place] [address] 68209 RBC Distribution 15.4 % High 10.8-14.9 [facility] Comment on above: Performed By: #### Xavier HM7 #### [facility] (DEFAULT) [address] [place] [address] 45200 Segs + Bands Auto 69.1 % Normal [facility] Comment on above: Performed By: #### Xavier HM7 #### [facility] (DEFAULT) [address] [place] [address] 34048 Segs + Bands,Absolute Auto 6.46 K/uL Normal 1.64-7.28 [facility] Comment on above: Performed By: #### Xavier HM7 #### [facility] (DEFAULT) [address] [place] [address] 08986 WBC (Bld) [#/Vol] 9.36 10*3/uL Normal 3.99-11.19 [facility] Comment on above: Performed By: #### Xavier HM7 #### [facility] (DEFAULT) [address] [place] [address] 13546 CHEM 6 (LYTES, BUN CREA)on 0 - Anion gap [Moles/Vol] 17 mmol/L Normal 7-17 [facility] Comment on above: Performed By: #### Xavier HM7 #### [facility] (DEFAULT) [address] [place] [address] 02651 Chloride [Moles/Vol] 103 mmol/L Normal 98-108 [facility] Comment on above: Performed By: #### C HM7 #### [facility] (DEFAULT) [address] [place] [address] 99793 CO2 [Moles/Vol] 24 mmol/L Normal 21-31 [facility] Comment on above: Performed By: #### C HM7 #### [facility] (DEFAULT) [address] [place] [address] 16959 Creatinine [Mass/Vol] 0.78 mg/dL Normal 0.50-1.20 [facility] Comment on above: Performed By: #### C HM7 #### [facility] (DEFAULT) [address] [address] GFR/1.73 sq M.predicted among non-blacks MDRD (S/P/Bld) [Vol rate/Area] 81 mL/min/{1.73_m2} Normal >=60 [facility] Comment on above: Result Comment: Repo rted eGFR is based on the CKD-EPI 2020 equation using creatinine, age, and sex. Performed By: #### C HM7 #### [facility] (DEFAULT) [address] [place] [address] 85027 Potassium [Moles/Vol] 4.4 mmol/L Normal 3.5-5.0 [facility] Comment on above: Performed By: #### C HM7 #### [facility] (DEFAULT) [address] [place] [address] 21067 Sodium [Moles/Vol] 140 mmol/L Normal 135-145 [facility] Comment on above: Performed By: #### C HM7 #### [facility] (DEFAULT) [address] [address] Urea nitrogen [Mass/Vol] 18 mg/dL Normal 7-25 [facility] Comment on above: Performed By: #### C HM7 #### [facility] (DEFAULT) [address] [place] [address] 52941 Urea nitrogen/Creatinine [Mass ratio] 23 mg/mg Normal [facility] Comment on above: Performed By: #### C HM7 #### [facility] (DEFAULT) [address] [place], [place] [id number] CT CHEST WITH CONTRASTon CT CHEST WITH CONTRAST EXAM: CT CHEST WITH CONTRAST, 08/04/2022 17:30 PM COMPARISON: No Available Comparisons. 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 CONTRAST: iohexol (OMNIPAQUE) 350 MG/ML injection 1-171 mL; Route of Administration: Intravenous; Dose: 50 mL. FINDINGS: Lungs and Pleura: Mild upper lung predominant centrilobular emphysema. Masslike opacity in the left lower lobe measures 4.3 x 4.4 cm on series 4 image 37. There is surrounding atelectasis as well as centrilobular micronodularity. Right upper lobe nodule measures 0.6 x 0.8 cm on series 5 image 77. Tracheobronchial tree: Occlusion of the left lower lobe bronchi with some aeration of the distal segmental bronchi posteriorly. Occlusive endobronchial debris within many of the bronchi. Mediastinum/Wen: Mediastinal and left hilar adenopathy. * Superior paratracheal, 1.3 x 1.7 cm, image 11 * Subcarinal, 1.5 x 1.8 cm, image 27 Axilla and Supraclavicular Region: No axillary or supraclavicular adenopathy. See separately dictated CT neck for details regarding supraclavicular structures. Cardiovascular: Heart is normal in size. A pericardial effusion. Dense calcifications in the coronary arteries with moderate mixed calcified and noncalcified atherosclerosis throughout the aorta and branch vessels. Normal variant arch origin of the left vertebral artery. Central pulmonary arteries are normal. Narrowing of the proximal left lower lobe and lingular pulmonary arteries. Partially imaged infrarenal abdominal aortic aneurysm status post stent graft repair. Upper Abdomen: The upper abdominal contents are unremarkable. Bones and Soft Tissue: No suspicious osseous lesion. IMPRESSION: 1. Left lower lobe masslike opacity [...] mediastinum and left hilum. 4. Significant atherosclerosis. Normal [facility] TYPE AND SCREEN - PREADMISSI ONon 08-04-2022 ABO/RH(D) TYPE Positive Normal [facility] Comment on above: Performed By: #### X MPO #### [facility] (DEFAULT) [address] [place] [address] DIGITAL MAMMO SCREENINGon DIGITAL MAMMO SCREENING BILATERAL DIGITAL SCREENING MAMMOGRAM WITH CAD: 04/24/2021 Ordering Physician: Roxanne Godfrey M.D. CLINICAL: Routine screening. Comparison is made to exams dated: 04/05/2020 mammogram and 03/31/2019 mammogram - [facility]. There are scattered fibroglandular elements in both breasts that could obscure a lesion on mammography. Current study was also evaluated with a Computer Aided Detection (CAD) system. There are benign vascular calcifications both breasts. There also is a biopsy clip right breast. Additionally, there are post operative findings left breast. No significant masses, calcifications, or other findings are seen in either breast. There has been no significant interval change. IMPRESSION: BENIGN There is no mammographic evidence of malignancy. A 1 year screening mammogram is recommended. The false-negative rate of mammography is approximately 10%. Management of a palpable abnormality must be based upon clinical grounds. Kyrie Hall M.D. mar/penrad:04/24/2021 15:06:07 Dental Practitioner: Ximena Ortiz, [facility] letter sent: Mammography Normal BI-RADS: 2 Benign Reported By: KYRIE HALL MD Signed By: KYRIE HALL [facility] Anion gap [Moles/Vol] 8 mmol/L Normal 07-28 [facility] Comment on above: Order Comment: Campu s: M : In PACU/ICU. Call MD with abnormal results. Performed By: #### L 500.00899, L500.48884 #### [facility] [address] [place], [place] [address] Calcium [Mass/Vol] 8.9 mg/dL Normal 8.5-10.5 [facility] Comment on above: Order Comment: Campu s: M : In PACU/ICU. Call MD with abnormal results. Result Comment: NOTE NEW NORMAL RANGE DUE TO REAGENT CHANGE Performed By: #### L 500.14416, L500.97864 #### [facility] [address] [place] [address] Chloride [Moles/Vol] 100 mmol/L Normal 98-107 [facility] Comment on above: Order Comment: Campu s: M : In PACU/ICU. Call MD with abnormal results. Performed By: #### L 500.53828, L500.89520 #### [facility] [address] [place] [address] CO2 [Moles/Vol] 29.0 mmol/L Normal 21-32 [facility] Comment on above: Order Comment: Campu s: M : In PACU/ICU. Call MD with abnormal results. Performed By: #### L 500.49724, L500.04030 #### [facility] [address] [place], [place] [address] Creatinine [Mass/Vol] 0.96 mg/dL High 0.510-0.950 [facility] Comment on above: Order Comment: Campu s: M : In PACU/ICU. Call MD with abnormal results. Result Comment: [facility] ents receiving either N-Acetylcysteine (NAC) or Metamizole prior to venipuncture, may have falsely depressed results. Performed By: #### L 500.04450, L500.13282 #### [facility] [address] [place] [address] Glucose [Mass/Vol] 131 mg/dL High 70-100 [facility] Comment on above: Order Comment: Campu s: M : In PACU/ICU. Call MD with abnormal results. Result Comment: 70-1 00- Normal Fasting; 100-125 Impaired Fasting; greater than 126 on more than one result- Diabetes. ADA guidelines. Results may be falsely elevated after the administration of Sulfapyridine. Results may be falsely depressed after the administration of Sulfasalazine. Performed By: #### L 500.99380, L500.27984 #### [facility] [address] [place] [address] Potassium [Moles/Vol] 4.5 mmol/L Normal 3.5-5.1 [facility] Comment on above: Order Comment: Campu s: M : In PACU/ICU. Call MD with abnormal results. Result Comment: Slig ht Hemolysis, Result may be affected. Performed By: #### L 500.71281, L500.95876 #### [facility] [address] [place] [address] Sodium [Moles/Vol] 136 mmol/L Normal 136-145 [facility] Comment on above: Order Comment: Campu s: M : In PACU/ICU. Call MD with abnormal results. Performed By: #### L 500.88118, L500.19145 #### [facility] [address] [place] [address] Urea nitrogen [Mass/Vol] 17 mg/dL Normal 7-26 [facility] Comment on above: Order Comment: Campu s: M : In PACU/ICU. Call MD with abnormal results. Performed By: #### L 500.60552, L500.39808 #### [facility] [address] [place] [address] Urea nitrogen/Creatinine [Mass ratio] 18 mg/mg Normal 15-24 [facility] Comment on above: Order Comment: Campu s: M : In PACU/ICU. Call MD with abnormal results. Performed By: #### L 500.15874, L500.36904 #### [facility] [address] [place] [address] GFR ESTon 08-28-2020 IF AMER Greater than [address] [facility] Comment on above: Order Comment: Campu s: M : In PACU/ICU. Call MD with abnormal results. Performed By: #### L 500.08813, L500.94955 #### [facility] [address] [place] [address] IF non-AFR AMER 57 Normal [facility] Comment on above: Order Comment: Campu s: M : In PACU/ICU. Call MD with abnormal results. Performed By: #### L 500.31230, L500.93017 #### [facility] [address] [place] [address] [facility] 08-28-2020 Hematocrit (Bld) [Volume fraction] 35.7 % Normal 35.0-47.0 [facility] Comment on above: Order Comment: Campu s: M : In PACU/ICU. Call MD with abnormal results. Performed By: #### L 200.27643 #### [facility] [address] [place] [address]3952 Hemoglobin (Bld) [Mass/Vol] 11.4 g/dL Low 11.5-15.5 [facility] Comment on above: Order Comment: Campu s: M : In PACU/ICU. Call MD with abnormal results. Performed By: #### L 200.12977 #### [facility] [address] [place] [address] [facility] 08-27-2020 Anion gap [Moles/Vol] 6 mmol/L Normal - [facility] Comment on above: Order Comment: Campu s: M Performed By: #### L 500.26265, L500.91942 #### [facility] [address] [place] [address]25 Calcium [Mass/Vol] 9.7 mg/dL Normal 8.5-10.5 [facility] Comment on above: Order Comment: Campu s: M Result Comment: NOTE NEW NORMAL RANGE DUE TO REAGENT CHANGE Performed By: #### L 500.85080, L500.15804 #### [facility] [place] [address] Chloride [Moles/Vol] 100 mmol/L Normal 98-107 [facility] Comment on above: Order Comment: Campu s: M Performed By: #### L 500.29858, L500.54176 #### [facility] [address] [place] [address] CO2 [Moles/Vol] 32.0 mmol/L Normal 21-32 [facility] Comment on above: Order Comment: Campu s: M Performed By: #### L 500.25573, L5.11432 #### [facility] [address] [place] [address] Creatinine [Mass/Vol] 0.75 mg/dL Normal 0.510-0.950 [facility] Comment on above: Order Comment: Campu s: M Result Comment: [facility] ents receiving either N-Acetylcysteine (NAC) or Metamizole prior to venipuncture, may have falsely depressed results. Performed By: #### L 500.41745, L5.29052 #### [facility] [address] [place], [place] [address] Glucose [Mass/Vol] 108 mg/dL High 70-100 [facility] Comment on above: Order Comment: Campu s: M Result Comment: 70-1 00- Normal Fasting; 100-125 Impaired Fasting; greater than 126 on more than one result- Diabetes. ADA guidelines. Results may be falsely elevated after the administration of Sulfapyridine. Results may be falsely depressed after the administration of Sulfasalazine. Performed By: #### L 500.92874, L5.52848 #### [facility] [address] [place] [address] Potassium [Moles/Vol] 4.4 mmol/L Normal 3.5-5.1 [facility] Comment on above: Order Comment: Campu s: M Result Comment: Slig ht Hemolysis, Result may be affected. Performed By: #### L 500.75285, L500.33181 #### [facility] [address] [place] [address]2865 Sodium [Moles/Vol] 138 mmol/L Normal 136-145 [facility] Comment on above: Order Comment: Campu s: M Performed By: #### L 500.89857, L500.62598 #### [facility] [address] [place] [address] 23993 Urea nitrogen [Mass/Vol] 17 mg/dL Normal 7-26 [facility] Comment on above: Order Comment: Campu s: M Performed By: #### L 500.83285, L500.57625 #### [facility] [address] [place] [address] 13423 Urea nitrogen/Creatinine [Mass ratio] 23 mg/mg Normal 15-24 [facility] Comment on above: Order Comment: Campu s: M Performed By: #### L 500.26857, L500.00037 #### [facility] [address] [place] [address] 99950 [facility] 08-27-2020 Erythrocyte distribution width (RBC) [Ratio] 14.3 % Normal 11-14.5 [facility] Comment on above: Order Comment: Campu s: M : In PACU/ICU. Call MD with abnormal results. Performed By: #### L 200.66454 #### [facility] [address] [place] [address] Hematocrit (Bld) [Volume fraction] 36.9 % Normal 35.0-47.0 [facility] Comment on above: Order Comment: Campu s: M : In PACU/ICU. Call MD with abnormal results. Performed By: #### L 200.48397 #### [facility] [address] [place] [address] Hemoglobin (Bld) [Mass/Vol] 12.1 g/dL Normal 11.5-15.5 [facility] Comment on above: Order Comment: Campu s: M : In PACU/ICU. Call MD with abnormal results. Performed By: #### L 200.71710 #### [facility] [address] [place] [address] MCHC (RBC) [Mass/Vol] 32.8 g/dL Normal 32.0-36.0 [facility] Comment on above: Order Comment: Campu s: M : In PACU/ICU. Call MD with abnormal results. Performed By: #### L 200.75576 #### [facility] [address] [place] [address] MCV (RBC) [Entitic vol] 95.3 fL Normal 80.0-99.0 [facility] Comment on above: Order Comment: Campu s: M : In PACU/ICU. Call MD with abnormal results. Performed By: #### L 200.68503 #### [facility] [address] [place] [address] Nucleated RBC/100 WBC (Bld) [Ratio] 0.0 % Normal Less than 1 [facility] Comment on above: Order Comment: Campu s: M : In PACU/ICU. Call MD with abnormal results. Performed By: #### L 200.93920 #### [facility] [address] [place] [address] Platelet mean volume (Bld) [Entitic vol] 9.4 fL Normal 9.4-12.4 [facility] Comment on above: Order Comment: Campu s: M : In PACU/ICU. Call MD with abnormal results. Performed By: #### L 200.40768 #### [facility] [address] [place] [address] PLT 284 K/CU MM Normal 150-450 [facility] Comment on above: Order Comment: Campu s: M : In PACU/ICU. Call MD with abnormal results. Performed By: #### L 200.36786 #### [facility] [address] [place] [address] RBC 3.87 M/CU MM Low 3.90-5.30 [facility] Comment on above: Order Comment: Campu s: M : In PACU/ICU. Call MD with abnormal results. Performed By: #### L 200.24154 #### [facility] [address] [place] [address] WBC 13.0 K/CUMM High 4.5-11.0 [facility] Comment on above: Order Comment: Campu s: M : In PACU/ICU. Call MD with abnormal results. Performed By: #### L 200.72613 #### [facility] [address] [place] [address] CBC W/DIFFon 08-27-2020 BASO ABS 0.10 K/CU MM Normal 0-0.2 [facility] Comment on above: Order Comment: Campu s: M Performed By: #### L 200.06362 #### [facility] [address] [place] [address] Basophils/100 WBC (Bld) 0.6 % Normal 0-2 [facility] Comment on above: Order Comment: Campu s: M Performed By: #### L 200.05912 #### [facility] [address] [place] [address] EOS ABS 0.20 K/CU MM Normal 0-[facility].[address] [facility] Comment on above: Order Comment: Campu s: M Performed By: #### L 200.34723 #### [facility] [address] [place], [place] [address] Eosinophils/100 WBC (Bld) 1.5 % Normal 0-5 [facility] Comment on above: Order Comment: Campu s: M Performed By: #### L 200.21718 #### [facility] [address] [place] [address] Erythrocyte distribution width (RBC) [Ratio] 14.2 % Normal 11-14.5 [facility] [facility] Comment on above: Order Comment: Campu s: M Performed By: #### L [id number] #### [facility] [address] [place] [address] Hematocrit (Bld) [Volume fraction] 42.7 % Normal 35.0-47.0 [facility] Comment on above: Order Comment: Campu s: M Performed By: #### L 200.94111 #### [facility] [address] [place] [address] Hemoglobin (Bld) [Mass/Vol] 13.3 g/dL Normal 11.5-15.5 [facility] Comment on above: Order Comment: Campu s: M Performed By: #### L 200.73431 #### [facility] [address] [place] [address] IMMATR GRAN ABS 0.20 K/CU MM Normal Less than 2 [facility] Comment on above: Order Comment: Campu s: M Performed By: #### L 200.14054 #### [facility] [address] [place] [address] IMMATURE GRAN % 1.9 % Normal Less than 2 [facility] Comment on above: Order Comment: Campu s: M Performed By: #### L 200.17808 #### [facility] [address] [place] [address] LYMPH ABS 1.60 K/CU MM Normal 0.9-4.4 [facility] Comment on above: Order Comment: Campu s: M Performed By: #### L 200.66108 #### [facility] [address] [place] [address] Lymphocytes/100 WBC (Bld) 12.8 % Low 20-40 [facility] Comment on above: Order Comment: Campu s: M Performed By: #### L 200.17345 #### [facility] [address] [place] [address] MCHC (RBC) [Mass/Vol] 31.1 g/dL Low 32.0-36.0 [facility] Comment on above: Order Comment: Campu s: M Performed By: #### L .62913 #### [facility] [address] [place] [address] MCV (RBC) [Entitic vol] 97.9 fL Normal 80.0-99.0 [facility] Comment on above: Order Comment: Campu s: M Performed By: #### L 200.72343 #### [facility] [address] [place] [address] MONO ABS 0.70 K/CU MM Normal 0.1-1.1 [facility] Comment on above: Order Comment: Campu s: M Performed By: #### L 200.06189 #### [facility] [address] [place] [address] Monocytes/100 WBC (Bld) 5.7 % Normal 2-10 [facility] Comment on above: Order Comment: Campu s: M Performed By: #### L 200.45146 #### [facility] [address] [place] [address] NEUTROPHIL ABS 9.80 K/CU MM High 2.0-8.3 [facility] Comment on above: Order Comment: Campu s: M Performed By: #### L 200.26212 #### [facility] [address] [place] [address] Neutrophils/100 WBC (Bld) 77.5 % High 45-75 [facility] Comment on above: Order Comment: Campu s: M Performed By: #### L 200.29839 #### [facility] [address] [place] [address] Nucleated RBC/100 WBC (Bld) [Ratio] 0.0 % Normal Less than 1 [facility] Comment on above: Order Comment: Campu s: M Performed By: #### L 200.63682 #### [facility] [address] [place] [address] Platelet mean volume (Bld) [Entitic vol] 9.3 fL Low 9.4-12.4 [facility] Comment on above: Order Comment: Campu s: M Performed By: #### L 200.51110 #### [facility] [address] [place] [address] PLT 350 K/CU MM Normal 150-450 [facility] Comment on above: Order Comment: Campu s: M Performed By: #### L 200.77315 #### [facility] [address] [place] [address] RBC 4.36 M/CU MM Normal 3.90-5.30 [facility] Comment on above: Order Comment: Campu s: M Performed By: #### L 200.96659 #### [facility] [address] [place], [place] [id number] WBC 12.6 K/CUMM High 4.5-11.0 [facility] Comment on above: Order Comment: Campu s: M Performed By: #### L 200.58486 #### [facility] [address] [place] [address] EKGon 08-27-2020 Electrocardiogram Procedure Date and T raysa: 08/27/20 1105 Test Reason : URGENT Blood Pressure : / mmHG Vent. Rate : 067 BPM Atrial Rate : 067 BPM P-R Int : 174 ms QRS Dur : 098 ms QT Int : 430 ms P-R-T Axes : 051 -17 012 degrees QTc Int : 454 ms Normal sinus rhythm Non-specific ST abnormality Abnormal ECG When compared with ECG of 22-MAR-2015 13:29, Nonspecific T wave abnormality no longer evident in Lateral leads Confirmed by BRIGITTE RO A. ([id number]) on 08/27/2020 1:13:27 PM Referred By: Reinaldo Morales Confirmed By:Farideh RO M.D.FACC Rhys DDandT: 08/27/20 1105 TDandT: [facility] PATIENT NAME: SARAH DAN [address] [place] [address] Dr. Bryant MEDICAL REC #: [id number] [place] [address] ADMIT DATE: DISCHARGE DATE: ATTENDING PHY: Reinaldo Morales MD ELECTROCARDIOGRAM REPORT CLB cc: [facility] PATIENT NAME: SARAH DAN [address] [place] [address] Dr. Bryant MEDICAL REC #: [id number] [place] [address] ADMIT DATE: DISCHARGE DATE: ATTENDING PHY: Reinaldo Morales MD ELECTROCARDIOGRAM REPORT Normal [facility] GFR ESTon 08-27-2020 IF AMER Greater than [address] [facility] Comment on above: Order Comment: Guilherme s: M Performed By: #### L 500.01631, L500.33315 #### [facility] [address] [place] [address] IF non-AFR AMER Greater than [address] [facility] Comment on above: Order Comment: Guilherme s: M Performed By: #### L 500.61208, L500.23208 #### [facility] [address] [phone] OR.OPRPTon 08-27-[address] [facility] OR.OPRPT [facility] Patient Name: SARAH DAN [address] [facility] [address] Date of : [address] [place], [place] [address] Unit Number: [id number] Operative Report Patient Status: [facility] Attending Doctor: Reinaldo Morales MD Service Date: 08/27/20 1526 Operative Report Procedure Date: 08/27/20 Attending Physician: Reinaldo Morales MD Procedure: Preoperative Diagnosis: Aortic aneurysm Postoperative Diagnosis: Same Procedure Type: 1. Ultrasound-guided access bilateral common femoral arteries and preclosed with pro glides. 2. Aortogram with bilateral iliofemoral angiogram. 3. Endovascular aneurysm repair with [place] excluder. With 28.5 main body up the left. Contralateral right limb was a 16 x 14 cm and ipsilateral left limb was a 23 mm x 10 cm. Anesthesia: General Estimated Blood Loss: 50 Complications: None Procedure Details: Patient brought to the operating room. Underwent general anesthesia. Given the appropriate antibiotics. Appropriate monitoring lines were placed. Was prepped and draped in a sterile fashion. We did ultrasound-guided access retrograde bilateral common femoral arteries. Put 2 pro glides in both groins. We then gave 8000 units of heparin. We exchanged out to [place] wires and brought in a 18 [place] sheath on the left and a 12 [place] sheath on the right. We did an aortogram with iliofemoral angios. We brought in the main body of the left side to 28.5 mm main body deployed a right below the left renal artery. Is in good position. We then accessed the contralateral gate confirm we are in the main body. We then extended down on that right contralateral side with a 16 mm x 14 cm just above the hypogastric. We then extended down on the left side above the hypogastric with a 23 mm x 10 cm. We ballooned proximally, all the junctions, and distally. Completion angiogram did show slight type I endoleak proximally. We then reballooned that and it was much improved. There is just a little bit of faint flow going down the probably posterior aspect. There is not good outflow with the sheath being a little bit occlusive so this should improve. We then removed the sheath and deployed both pro glides in both groins with good hemostasis. Still had good pulses in the feet. Reversed with 50 of protamine. Closed the groin with 3-0 Vicryl, 4-0 Monocryl and then Dermabond. Patient awakened brought to recovery stable condition. Fluoroscopy: Fluoroscopy: 9.5 minutes Dose: 1488 mGy Contrast dye: 102 cc Disclaimer This dictation was created using voice recognition software. Phonetic and/or minor grammatical errors may exist. eSign Date and Time Reinaldo Morales MD Verified/Reviewed by 08/27/20 1530 Normal [facility] PATIENT RETYPEon 08-27-2020 RETYPE INTERP Positive Normal [facility] TSon 08-27-2020 ABO and Rh group Nom (Bld) Blood group B Rh(D) positive Normal [facility] Comment on above: Order Comment: Guilherme s: M Patient transfused or in the past 3 months: NO Is This Patient Going To Surgery? Y Surgery Date: 08/27/20 25-Hydroxy D2+D3on 0 25-Hydroxy D Total 34.4 ng/mL Normal 30.0-100.0 [facility] Comment on above: Performed By: #### C BCDIF, AHCV, TSH, CMP, LIPB, LDLDCT #### [facility] [address] [phone] #### D2D3 #### [facility] [address] [address] 25-Hydroxy D2 <4.0 Normal [facility] Comment on above: Performed By: #### C BCDIF, AHCV, TSH, CMP, LIPB, LDLDCT #### [facility] [address] [place], [place] [address] #### D2D3 #### [facility] [address] [address] 25-Hydroxy D3 34.4 ng/mL Normal [facility] Comment on above: Performed By: #### C BCDIF, AHCV, TSH, CMP, LIPB, LDLDCT #### [facility] [address] [phone] #### D2D3 #### [facility] [address] [place] [phone] CBC and Differentialon 06-22 Abs Baso 0.05 k/uL Normal <0.11 [facility] Comment on above: Performed By: #### C BCDIF, CMP, LIPB, TSH #### [facility] [address] [place], [place] [phone] #### D2D3 #### [facility] [address] [place], [place] [phone] Abs Dolores 0.74 k/uL Normal <0.87 [facility] Comment on above: Performed By: #### C BCDIF, CMP, LIPB, TSH #### [facility] [address] [place] [phone] #### D2D3 #### [facility] [address] [place], [place] [phone] Abs Neut 9.42 k/uL High 1.45-7.50 [facility] Comment on above: Performed By: #### C BCDIF, CMP, LIPB, TSH #### [facility] [address] [place] [phone] #### D2D3 #### [facility] [address] [place] [phone] Absolute nRBC <0.01 Normal <0.01 [facility] Comment on above: Performed By: #### C BCDIF, CMP, LIPB, TSH #### [facility] [address] [place] [address] #### D2D3 #### [facility] [address] [phone] Basophils/100 WBC (Bld) 0.4 % Normal [facility] Comment on above: Performed By: #### C BCDIF, CMP, LIPB, TSH #### [facility] [address] [phone] #### D2D3 #### [facility] [address] [phone] DTYPE ADIFF Normal [facility] Comment on above: Performed By: #### C BCDIF, CMP, LIPB, TSH #### [facility] [address] [place] [phone] #### D2D3 #### [facility] [address] [place] [phone] Eosinophils (Bld) [#/Vol] 0.03 10*3/uL Normal <0.46 [facility] Comment on above: Performed By: #### C BCDIF, CMP, LIPB, TSH #### [facility] [address] [phone] #### D2D3 #### [facility] [address] [phone] Eosinophils/100 WBC (Bld) 0.3 % Normal [facility] Comment on above: Performed By: #### C BCDIF, CMP, LIPB, TSH #### [facility] [address] [phone] #### D2D3 #### [facility] [address] [phone] Erythrocyte distribution width (RBC) [Ratio] 12.2 % Normal 11.5-15.0 [facility] Comment on above: Performed By: #### C BCDIF, CMP, LIPB, TSH #### [facility] [address] [phone] #### D2D3 #### [facility] [address] [address] Hematocrit (Bld) [Volume fraction] 39.2 % Normal 36.0-46.0 [facility] Comment on above: Performed By: #### C BCDIF, CMP, LIPB, TSH #### [facility] [address] [phone] #### D2D3 #### [facility] [address] [place] [phone] Hemoglobin (Bld) [Mass/Vol] 12.7 g/dL Normal 11.5-15.5 [facility] Comment on above: Performed By: #### C BCDIF, CMP, LIPB, TSH #### [facility] [address] [phone] #### D2D3 #### [facility] [address] [place] [phone] Lymphocytes (Bld) [#/Vol] 1.67 10*3/uL Normal 1.00-4.00 [facility] Comment on above: Performed By: #### C BCDIF, CMP, LIPB, TSH #### [facility] [address] [phone] #### D2D3 #### [facility] [address] [phone] Lymphocytes/100 WBC (Bld) 14.0 % Normal [facility] Comment on above: Performed By: #### C BCDIF, CMP, LIPB, TSH #### [facility] [address] [phone] #### D2D3 #### [facility] [address] [address] MCH (RBC) [Entitic mass] 30.3 pG Normal 26.0-34.0 [facility] Comment on above: Performed By: #### C BCDIF, CMP, LIPB, TSH #### [facility] [address] [place] [phone] #### D2D3 #### [facility] [address] [place] [phone] MCHC (RBC) [Mass/Vol] 32.4 g/dL Normal 30.5-36.0 [facility] Comment on above: Performed By: #### C BCDIF, CMP, LIPB, TSH #### [facility] [address] [place] [phone] #### D2D3 #### [facility] [address] [place] [phone] MCV (RBC) [Entitic vol] 93.6 fL Normal 80.0-100.0 [facility] Comment on above: Performed By: #### C BCDIF, CMP, LIPB, TSH #### [facility] [address] [place] [phone] #### D2D3 #### [facility] [address] [place] [phone] Monocytes/100 WBC (Bld) 6.2 % Normal [facility] Comment on above: Performed By: #### C BCDIF, CMP, LIPB, TSH #### [facility] [address] [place] [phone] #### D2D3 #### [facility] [address] [place], [place] [phone] Neutrophils/100 WBC (Bld) 79.1 % Normal [facility] Comment on above: Performed By: #### C BCDIF, CMP, LIPB, TSH #### [facility] [address] [phone] #### D2D3 #### [facility] [address] [place], [place] [address] NRBCs 0.0 /100 WBC Normal 0 [facility] Comment on above: Performed By: #### C BCDIF, CMP, LIPB, TSH #### [facility] [address] [phone] #### D2D3 #### [facility] [address] [phone] Platelet mean volume (Bld) [Entitic vol] 9.9 fL Normal 9.0-12.7 [facility] Comment on above: Performed By: #### C BCDIF, CMP, LIPB, TSH #### [facility] [address] [phone] #### D2D3 #### [facility] [address] [phone] Platelets (Bld) [#/Vol] 380 10*3/uL Normal 150-400 [facility] Comment on above: Performed By: #### C BCDIF, CMP, LIPB, TSH #### [facility] [address] [phone] #### D2D3 #### [facility] [address] [phone] RBC (Bld) [#/Vol] 4.19 10*6/uL Normal 3.90-5.20 [facility] Comment on above: Performed By: #### C BCDIF, CMP, LIPB, TSH #### [facility] [address] [phone] #### D2D3 #### [facility] [address] [place], [place] [address] WBC (Bld) [#/Vol] 11.91 10*3/uL High 3.70-11.00 [facility] Comment on above: Performed By: #### C BCDIF, CMP, LIPB, TSH #### [facility] [address] [address] #### D2D3 #### [facility] [address] [place] [address] Comp Metabolic Panelon 06-22 Albumin [Mass/Vol] 4.7 g/dL Normal 3.9-4.9 [facility] Comment on above: Performed By: #### C BCDIF, CMP, LIPB, TSH #### [facility] [address] [place] [address] #### D2D3 #### [facility] [address] [place], [place] [phone] ALP [Catalytic activity/Vol] 97 U/L Normal 34-123 [facility] Comment on above: Performed By: #### C BCDIF, CMP, LIPB, TSH #### [facility] [address] [place] [address] #### D2D3 #### [facility] [address] [place] [address] ALT [Catalytic activity/Vol] 13 U/L Normal 7-38 [facility] Comment on above: Performed By: #### C BCDIF, CMP, LIPB, TSH #### [facility] [address] [place], [place] [address] #### D2D3 #### [facility] [address] [place] [address] Anion gap [Moles/Vol] 14 mmol/L Normal 9-18 [facility] Comment on above: Performed By: #### C BCDIF, CMP, LIPB, TSH #### [facility] [address] [address] #### D2D3 #### [facility] [address] [address] AST [Catalytic activity/Vol] 16 U/L Normal 13-35 [facility] Comment on above: Performed By: #### C BCDIF, CMP, LIPB, TSH #### [facility] [address] [address] #### D2D3 #### [facility] [address] [place] [address] Bilirubin Ql (U) 0.4 mg/dL Normal 0.2-1.3 [facility] Comment on above: Performed By: #### C BCDIF, CMP, LIPB, TSH #### [facility] [address] [address] #### D2D3 #### [facility] [address] [address] Calcium [Mass/Vol] 9.7 mg/dL Normal 8.5-10.2 [facility] Comment on above: Performed By: #### C BCDIF, CMP, LIPB, TSH #### [facility] [address] [address] #### D2D3 #### [facility] [address] [address] Chloride [Moles/Vol] 102 mmol/L Normal 97-105 [facility] Comment on above: Performed By: #### C BCDIF, CMP, LIPB, TSH #### [facility] [address] [address] #### D2D3 #### [facility] [address] [address] CO2 [Moles/Vol] 23 mmol/L Normal 22-30 [facility] Comment on above: Performed By: #### C BCDIF, CMP, LIPB, TSH #### [facility] [address] [phone] #### D2D3 #### [facility] [address] [place] [phone] Creatinine [Mass/Vol] 0.77 mg/dL Normal 0.58-0.96 [facility] Comment on above: Performed By: #### C BCDIF, CMP, LIPB, TSH #### [facility] [address] [place] [phone] #### D2D3 #### [facility] [address] [place] [address] eGFR- Amer. >60 Normal [facility] Comment on above: Performed By: #### C BCDIF, CMP, LIPB, TSH #### [facility] [address] [place] [address] [phone] #### D2D3 #### [facility] [address] [place] [phone] GFR/1.73 sq M predicted among non-blacks MDRD (S/P/Bld) [Vol rate/Area] mL/min/{1.73_m2} Normal [facility] Comment on above: Performed By: #### C BCDIF, CMP, LIPB, TSH #### [facility] [address] [place], [place] [address] #### D2D3 #### [facility] [address] [address] Glucose [Mass/Vol] 90 mg/dL Normal 74-99 [facility] Comment on above: Performed By: #### C BCDIF, CMP, LIPB, TSH #### [facility] [address] [place], [place] [address] #### D2D3 #### [facility] [address] [place], [place] [address] Potassium [Moles/Vol] 4.5 mmol/L Normal 3.7-5.1 [facility] Comment on above: Performed By: #### C BCDIF, CMP, LIPB, TSH #### [facility] [address] [place], [place] [address] #### D2D3 #### [facility] [address] [place], [place] [address] Protein [Mass/Vol] 7.4 g/dL Normal 6.3-8.0 [facility] Comment on above: Performed By: #### C BCDIF, CMP, LIPB, TSH #### [facility] [address] [place], [place] [address] #### D2D3 #### [facility] [address] [place], [place] [address] Sodium [Moles/Vol] 139 mmol/L Normal 136-144 [facility] Comment on above: Performed By: #### C BCDIF, CMP, LIPB, TSH #### [facility] [address] [place], [place] [address] #### D2D3 #### [facility] [address] [place], [place] [address] Urea nitrogen [Mass/Vol] 23 mg/dL High 7-21 [facility] Comment on above: Performed By: #### C BCDIF, CMP, LIPB, TSH #### [facility] [address] [place], [place] [address] #### D2D3 #### [facility] [address] [place], [place] [address] Lipid Panel, Basicon 020 Cholesterol [Mass/Vol] 267 mg/dL High <200 [facility] Comment on above: Performed By: #### C BCDIF, CMP, LIPB, TSH #### [facility] [address] [place], [place] [address] #### D2D3 #### [facility] [address] [place], [place] [address] Cholesterol in HDL [Mass/Vol] 54 mg/dL Normal >39 [facility] Comment on above: Performed By: #### C BCDIF, CMP, LIPB, TSH #### [facility] [address] [place], [place] [address] #### D2D3 #### [facility] [address] [place], [place] [address] Cholesterol in LDL [Mass/Vol] 149 mg/dL High <100 [facility] Comment on above: Performed By: #### C BCDIF, CMP, LIPB, TSH #### [facility] [address] [place], [place] [address] #### D2D3 #### [facility] [address] [place], [place] [address] Cholesterol in VLDL [Mass/Vol] 64 mg/dL High <30 [facility] Comment on above: Performed By: #### C BCDIF, CMP, LIPB, TSH #### [facility] [address] [place], [place] [address] #### D2D3 #### [facility] [address] [place], [place] [address] Cholesterol non HDL [Mass/Vol] 213 mg/dL High <130 [facility] Comment on above: Performed By: #### C BCDIF, CMP, LIPB, TSH #### [facility] Routine Lab [address] [phone] #### D2D3 #### [facility] [address] [phone] LDL:HDL Ratio 2.76 High <2.54 [facility] Reference Lab Comment on above: Performed By: #### C BCDIF, CMP, LIPB, TSH #### [facility] [address] [phone] #### D2D3 #### [facility] [address] [place], [place] [address] TC:HDL Ratio 4.94 Normal <5.10 [facility] Comment on above: Performed By: #### C BCDIF, CMP, LIPB, TSH #### [facility] [address] [phone] #### D2D3 #### [facility] [address] [place], [place] [address] Triglyceride [Mass/Vol] 322 mg/dL High <150 [facility] Comment on above: Performed By: #### C BCDIF, CMP, LIPB, TSH #### [facility] [address] [phone] #### D2D3 #### [facility] [address] [place], [place] [address] TSHon 06-23-2019 TSH Qn 1.840 uU/mL Normal 0.270-4.200 [facility] Comment on above: Performed By: #### C BCDIF, AHCV, TSH, CMP, LIPB, LDLDCT #### [facility] [address] [phone] #### D2D3 #### [facility] [address] [place], [place] [address] Lipid Panel, Basicon 020 Fasting Time UN Normal [facility] Reference [facility] Comment on above: Performed By: #### C BCDIF, CMP, LIPB, TSH #### [facility] [address] [address] #### D2D3 #### [facility] [address] [place], [place] [address] 25-Hydroxy D2+D3on 9 25-Hydroxy D Total 38.5 ng/mL Normal 30.0-100.0 [facility] Reference Lab Comment on above: Performed By: #### C BCDIF, AHCV, TSH, CMP, LIPB, LDLDCT #### [facility] [address] [place] [phone] #### D2D3 #### [facility] [address] [place] [phone] 25-Hydroxy D2 <4.0 Normal [facility] Reference [facility] Comment on above: Performed By: #### C BCDIF, AHCV, TSH, CMP, LIPB, LDLDCT #### [facility] [address] [place] [address] #### D2D3 #### [facility] [address] [phone] 25-Hydroxy D3 38.5 ng/mL Normal [facility] Comment on above: Performed By: #### C BCDIF, AHCV, TSH, CMP, LIPB, LDLDCT #### [facility] [address] [address] #### D2D3 #### [facility] [address] [place] [address] Comp Metabolic Panelon 10-08 -2019 Albumin [Mass/Vol] 4.7 g/dL Normal 3.9-4.9 [facility] Reference Lab Comment on above: Performed By: #### C BCDIF, AHCV, TSH, CMP, LIPB, LDLDCT #### [facility] [address] [address] #### D2D3 #### [facility] [address] [place] [phone] ALP [Catalytic activity/Vol] 103 U/L Normal 34-123 [facility] Comment on above: Performed By: #### C BCDIF, AHCV, TSH, CMP, LIPB, LDLDCT #### [facility] [address] [place] [phone] #### D2D3 #### [facility] [address] [place] [phone] ALT [Catalytic activity/Vol] 23 U/L Normal 7-38 [facility] Comment on above: Performed By: #### C BCDIF, AHCV, TSH, CMP, LIPB, LDLDCT #### [facility] [address] [phone] #### D2D3 #### [facility] [address] [place] [address] Anion gap [Moles/Vol] 19 mmol/L High 9-18 [facility] Reference Lab Comment on above: Performed By: #### C BCDIF, AHCV, TSH, CMP, LIPB, LDLDCT #### [facility] [address] [place] [phone] #### D2D3 #### [facility] [address] [place] [address] AST [Catalytic activity/Vol] 24 U/L Normal 13-35 [facility] Comment on above: Performed By: #### C BCDIF, AHCV, TSH, CMP, LIPB, LDLDCT #### [facility] [address] [place], [place] [address] #### D2D3 #### [facility] [address] [address] Bilirubin Ql (U) 0.2 mg/dL Normal 0.2-1.3 [facility] Reference Lab Comment on above: Performed By: #### C BCDIF, AHCV, TSH, CMP, LIPB, LDLDCT #### [facility] [address] [place] [address] #### D2D3 #### [facility] [address] [place] [phone] Calcium [Mass/Vol] 10.2 mg/dL Normal 8.5-10.2 [facility] Reference Lab Comment on above: Performed By: #### C BCDIF, AHCV, TSH, CMP, LIPB, LDLDCT #### [facility] Lab [address] [place] [address] #### D2D3 #### [facility] [address] [place] [address] Chloride [Moles/Vol] 99 mmol/L Normal 97-105 [facility] Reference Lab Comment on above: Performed By: #### C BCDIF, AHCV, TSH, CMP, LIPB, LDLDCT #### [facility] Routine Lab [address] [place] [address] #### D2D3 #### [facility] [address] [place] [address] CO2 [Moles/Vol] 24 mmol/L Normal 22-30 [facility] Comment on above: Performed By: #### C BCDIF, AHCV, TSH, CMP, LIPB, LDLDCT #### [facility] [address] [place] [address] #### D2D3 #### [facility] [address] [place], [place] [address] Creatinine [Mass/Vol] 0.96 mg/dL Normal 0.58-0.96 [facility] Reference Lab Comment on above: Performed By: #### C BCDIF, AHCV, TSH, CMP, LIPB, LDLDCT #### [facility] [address] [phone] #### D2D3 #### [facility] [address] [place] [address] eGFR- Amer. >60 Normal [facility] Reference Lab Comment on above: Performed By: #### C BCDIF, AHCV, TSH, CMP, LIPB, LDLDCT #### [facility] Routine Lab [address] [place] [phone] #### D2D3 #### [facility] [address] [place] [address] GFR/1.73 sq M predicted among non-blacks MDRD (S/P/Bld) [Vol rate/Area] 58 . Normal [facility] Comment on above: Performed By: #### C BCDIF, AHCV, TSH, CMP, LIPB, LDLDCT #### [facility] [address] [phone] #### D2D3 #### [facility] [address] [address] Glucose [Mass/Vol] 90 mg/dL Normal 74-99 [facility] Reference Lab Comment on above: Performed By: #### C BCDIF, AHCV, TSH, CMP, LIPB, LDLDCT #### [facility] [address] [place], [place] [address] #### D2D3 #### [facility] [address], [place] [phone] Potassium [Moles/Vol] 4.3 mmol/L Normal 3.7-5.1 [facility] Reference Lab Comment on above: Performed By: #### C BCDIF, AHCV, TSH, CMP, LIPB, LDLDCT #### [facility] [address] [place], [place] [address] #### D2D3 #### [facility] [address] [address] Protein [Mass/Vol] 7.4 g/dL Normal 6.3-8.0 [facility] Reference Lab Comment on above: Performed By: #### C BCDIF, AHCV, TSH, CMP, LIPB, LDLDCT #### [facility] Routine Lab [address] [place] [address] #### D2D3 #### [facility] [address] [place], [place] [phone] Sodium [Moles/Vol] 142 mmol/L Normal 136-144 [facility] Reference Lab Comment on above: Performed By: #### C BCDIF, AHCV, TSH, CMP, LIPB, LDLDCT #### [facility] Routine Lab [address] [place] [address] #### D2D3 #### [facility] [address] [phone] Urea nitrogen [Mass/Vol] 22 mg/dL High 7-21 [facility] Reference [facility] Comment on above: Performed By: #### C BCDIF, AHCV, TSH, CMP, LIPB, LDLDCT #### [facility] Routine Lab [address] [place] [address] #### D2D3 #### [facility] [address] [place], [place] [address] Hepatitis C Ab IAon 10-08-20 19 Hepatitis C Ab IA NEGAT Normal Negative [facility] Reference Lab Comment on above: Performed By: #### C BCDIF, AHCV, TSH, CMP, LIPB, LDLDCT #### [facility] [address] [place], [place] [address] #### D2D3 #### [facility] [address] [place], [place] [address] LDL-Chol, Directon 9 LDL-Chol, Direct 152 mg/dL High <100 [facility] Reference Lab Comment on above: Performed By: #### C BCDIF, AHCV, TSH, CMP, LIPB, LDLDCT #### [facility] [address] [address] #### D2D3 #### [facility] [address] [place] [address] VLDL Cholesterol 68 mg/dL High <30 [facility] Reference Lab Comment on above: Performed By: #### C BCDIF, AHCV, TSH, CMP, LIPB, LDLDCT #### [facility] [address] [place], [place] [address] #### D2D3 #### [facility] [address] [place], [place] [address] Lipid Panel, Basicon 019 Cholesterol [Mass/Vol] 277 mg/dL High <200 [facility] Comment on above: Performed By: #### C BCDIF, AHCV, TSH, CMP, LIPB, LDLDCT #### [facility] [address] [address] #### D2D3 #### [facility] [address] [place], [place] [address] Cholesterol in HDL [Mass/Vol] 57 mg/dL Normal >39 [facility] Comment on above: Performed By: #### C BCDIF, AHCV, TSH, CMP, LIPB, LDLDCT #### [facility] Routine Lab [address], [place] [address] [phone] #### D2D3 #### [facility] Chemistry [address] [place], [place] [address] Cholesterol in LDL [Mass/Vol] LDHDNO Normal <100 [facility] Comment on above: Performed By: #### C BCDIF, AHCV, TSH, CMP, LIPB, LDLDCT #### [facility] Routine [facility] [address] [phone] #### D2D3 #### [facility] [address] [place] [phone] Cholesterol in VLDL [Mass/Vol] LDHDNO Normal <30 [facility] Comment on above: Performed By: #### C BCDIF, AHCV, TSH, CMP, LIPB, LDLDCT #### [facility] Routine Lab [address] [phone] #### D2D3 #### [facility] Chemistry [address] [phone] Cholesterol non HDL [Mass/Vol] 220 mg/dL High <130 [facility] Comment on above: Performed By: #### C BCDIF, AHCV, TSH, CMP, LIPB, LDLDCT #### [facility] Routine Lab [address] [phone] #### D2D3 #### [facility] Chemistry [address] [place] [phone] LDL:HDL Ratio Normal <2.54 [facility] Comment on above: Result Comment: Unab le to Reference: 1. National Cholesterol Education Program ATP III Guideline At-A-Glance Quick Desk Reference: National Heart, Lung, and Blood Era. National Institutes of Health. 2001: NIH Publication No. 01-3305. 2. An International Atherosclerosis Society position paper: global recommendations for the management of dyslipidemia: executive summary, Atherosclerosis. 2014: 232(2):410-413. calculate due Reference: 1. National Cholesterol Education Program ATP III Guideline At-A-Glance Quick Desk Reference: National Heart, Lung, and Blood Era. National Institutes of Health. 2000: [facility] Publication No. . 2. An International Atherosclerosis Society position paper: global recommendations for the management of dyslipidemia: executive summary, Atherosclerosis. 2014: 232(2):410-413. to elevated Reference: 1. National Cholesterol Education Program ATP III Guideline At-A-Glance Quick Desk Reference: National Heart, Lung, and Blood Era. National Institutes of Health. 2000: [facility] Publication No. . 2. An International Atherosclerosis Society position paper: global recommendations for the management of dyslipidemia: executive summary, Atherosclerosis. 2014: 232(2):410-413. Triglycerides. Reference: 1. National Cholesterol Education Program ATP III Guideline At-A-Glance Quick Desk Reference: National Heart, Lung, and Blood Era. National Institutes of Health. 2000: [facility] Publication No. . 2. An International Atherosclerosis Society position paper: global recommendations for the management of dyslipidemia: executive summary, Atherosclerosis. 2014: 232(2):410-413. Performed By: #### C BCDIF, AHCV, TSH, CMP, LIPB, LDLDCT #### [facility] Routine Lab [address] [phone] #### D2D3 #### [facility] Chemistry [address] [phone] TC:HDL Ratio 4.86 Normal <5.10 [facility] Comment on above: Performed By: #### C BCDIF, AHCV, TSH, CMP, LIPB, LDLDCT #### [facility] Routine Lab [address] [phone] #### D2D3 #### [facility] Chemistry [address] [phone] Triglyceride [Mass/Vol] 508 mg/dL High <150 [facility] Reference [facility] Comment on above: Performed By: #### C BCDIF, AHCV, TSH, CMP, LIPB, LDLDCT #### [facility] Routine Lab [address] [place] [phone] #### D2D3 #### [facility] [address] [place] [phone] TSHon 12-20-2018 TSH Qn 1.420 uU/mL Normal 0.400-5.500 [facility] Comment on above: Performed By: #### C BCDIF, AHCV, TSH, CMP, LIPB, LDLDCT #### [facility] Routine Lab [address] [place] [phone] #### D2D3 #### [facility] [address] [place] [phone] CBC and Differentialon 12-19 Abs Baso 0.05 k/uL Normal <0.11 [facility] Comment on above: Performed By: #### C BCDIF, AHCV, TSH, CMP, LIPB, LDLDCT #### [facility] Routine Lab [address] [place] [phone] #### D2D3 #### [facility] [address] [place] [phone] Abs Dolores 0.78 k/uL Normal <0.87 [facility] Comment on above: Performed By: #### C BCDIF, AHCV, TSH, CMP, LIPB, LDLDCT #### [facility] Routine Lab [address] [place] [phone] #### D2D3 #### [facility] [address] [place] [phone] Abs Neut 6.61 k/uL Normal 1.45-7.50 [facility] Comment on above: Performed By: #### C BCDIF, AHCV, TSH, CMP, LIPB, LDLDCT #### [facility] Routine Lab [address] [phone] #### D2D3 #### [facility] [address] [phone] Absolute nRBC <0.01 Normal <0.01 [facility] Comment on above: Performed By: #### C BCDIF, AHCV, TSH, CMP, LIPB, LDLDCT #### [facility] Routine Lab [address] [phone] #### D2D3 #### [facility] [address] [phone] Basophils/100 WBC (Bld) 0.6 % Normal [facility] Comment on above: Performed By: #### C BCDIF, AHCV, TSH, CMP, LIPB, LDLDCT #### [facility] Routine Lab [address] [phone] #### D2D3 #### [facility] [address] [phone] DTYPE ADIFF Normal [facility] Comment on above: Performed By: #### C BCDIF, AHCV, TSH, CMP, LIPB, LDLDCT #### [facility] Routine Lab [address] [phone] #### D2D3 #### [facility] [address] [phone] Eosinophils (Bld) [#/Vol] 0.10 10*3/uL Normal <0.46 [facility] Comment on above: Performed By: #### C BCDIF, AHCV, TSH, CMP, LIPB, LDLDCT #### [facility]ine Lab [address] [phone] #### D2D3 #### [facility] [address] [phone] Eosinophils/100 WBC (Bld) 1.1 % Normal [facility] Comment on above: Performed By: #### C BCDIF, AHCV, TSH, CMP, LIPB, LDLDCT #### [facility]ine [facility] [address] [phone] #### D2D3 #### [facility] [address] [phone] Erythrocyte distribution width (RBC) [Ratio] 13.7 % Normal 11.5-15.0 [facility] Comment on above: Performed By: #### C BCDIF, AHCV, TSH, CMP, LIPB, LDLDCT #### [facility] Routine Lab [address] [place] [phone] #### D2D3 #### [facility] [address] [phone] Hematocrit (Bld) [Volume fraction] 41.7 % Normal 36.0-46.0 [facility] Comment on above: Performed By: #### C BCDIF, AHCV, TSH, CMP, LIPB, LDLDCT #### [facility] Routine Lab [address] [phone] #### D2D3 #### [facility] [address] [phone] Hemoglobin (Bld) [Mass/Vol] 13.0 g/dL Normal 11.5-15.5 [facility] Comment on above: Performed By: #### C BCDIF, AHCV, TSH, CMP, LIPB, LDLDCT #### [facility] Routine Lab [address] [phone] #### D2D3 #### [facility] [address] [phone] Lymphocytes (Bld) [#/Vol] 1.24 10*3/uL Normal 1.00-4.00 [facility] Comment on above: Performed By: #### C BCDIF, AHCV, TSH, CMP, LIPB, LDLDCT #### [facility] Routine Lab [address] [place] [address] #### D2D3 #### [facility] [address] [place] [address] Lymphocytes/100 WBC (Bld) 14.1 % Normal [facility] Comment on above: Performed By: #### C BCDIF, AHCV, TSH, CMP, LIPB, LDLDCT #### [facility] Routine Lab [address] [place] [phone] #### D2D3 #### [facility] [address] [place] [phone] MCH (RBC) [Entitic mass] 30.7 pG Normal 26.0-34.0 [facility] Comment on above: Performed By: #### C BCDIF, AHCV, TSH, CMP, LIPB, LDLDCT #### [facility] Lab [address] [place] [address] #### D2D3 #### [facility] [address] [place] [address] MCHC (RBC) [Mass/Vol] 31.2 g/dL Normal 30.5-36.0 [facility] Reference Lab Comment on above: Performed By: #### C BCDIF, AHCV, TSH, CMP, LIPB, LDLDCT #### [facility] Rout[facility] Lab [address] [place] [address] #### D2D3 #### [facility] [address] [place] [address] MCV (RBC) [Entitic vol] 98.3 fL Normal 80.0-100.0 [facility] Comment on above: Performed By: #### C BCDIF, AHCV, TSH, CMP, LIPB, LDLDCT #### [facility] Lab [address] [phone] #### D2D3 #### [facility] [address] [address] Monocytes/100 WBC (Bld) 8.9 % Normal [facility] Comment on above: Performed By: #### C BCDIF, AHCV, TSH, CMP, LIPB, LDLDCT #### [facility]ine Lab [address] [phone] #### D2D3 #### [facility] [address] [place] [phone] Neutrophils/100 WBC (Bld) 75.3 % Normal [facility] Comment on above: Performed By: #### C BCDIF, AHCV, TSH, CMP, LIPB, LDLDCT #### [facility] Routine Lab [address] [phone] #### D2D3 #### [facility] [address] [place] [phone] NRBCs 0.0 /100 WBC Normal 0 [facility] Comment on above: Performed By: #### C BCDIF, AHCV, TSH, CMP, LIPB, LDLDCT #### [facility] Lab [address] [phone] #### D2D3 #### [facility] [address] [place] [phone] Platelet mean volume (Bld) [Entitic vol] 10.3 fL Normal 9.0-12.7 [facility] Comment on above: Performed By: #### C BCDIF, AHCV, TSH, CMP, LIPB, LDLDCT #### [facility] Lab [address] [phone] #### D2D3 #### [facility] [address] [address] Platelets (Bld) [#/Vol] 343 10*3/uL Normal 150-400 [facility] Comment on above: Performed By: #### C BCDIF, AHCV, TSH, CMP, LIPB, LDLDCT #### [facility] Routine Lab [address] [phone] #### D2D3 #### [facility] [address] [phone] RBC (Bld) [#/Vol] 4.24 10*6/uL Normal 3.90-5.20 [facility] Reference Lab Comment on above: Performed By: #### C BCDIF, AHCV, TSH, CMP, LIPB, LDLDCT #### [facility] Routine Lab [address] [place] [phone] #### D2D3 #### [facility] [address] [place] [phone] WBC (Bld) [#/Vol] 8.78 10*3/uL Normal 3.70-11.00 [facility] Reference Lab Comment on above: Performed By: #### C BCDIF, AHCV, TSH, CMP, LIPB, LDLDCT #### [facility] Routine Lab [address] [phone] #### D2D3 #### [facility] [address] [address] Lipid Panel, Basicon 019 Fasting Time UN Normal [facility] Comment on above: Performed By: #### C BCDIF, AHCV, TSH, CMP, LIPB, LDLDCT #### [facility] Routine Lab [address] [place] [phone] #### D2D3 #### [facility] [address] [place], [place] [address] XR ABDOMEN COMPLETE W/DECUB/ ERECTon 11-04-2016 XR ABDOMEN COMPLETE W/DECUB/ERECT ORIGINALAcute abdomen 2 views CLINICAL STATEMENT: Abdominal bloating Supine and erect views show no abnormalities of the intestinal gas pattern. No visceromegaly or mass is noted. Irregular calcification projects inferior to the left L3 transverse process. There are no significant findings involving the included portion of the skeleton. CONCLUSION:Possible left ureteral stone. Suggest correlation with clinical symptoms and urinalysis. Interpreted By: Kiel Prabhakar MDPreliminary Report By: Kiel Prabhakar MDElectronically Signed By: Kiel Prabhakar MD Dictated Date: 11/04/2016 8:27:40 AM Prelim Date: 11/04/2016 8:27:40 AM Sign Date: 11/04/2016 8:31:54 AM Normal [facility] ([place]) XR SPINE LUMBAR AP/LATon XR SPINE LUMBAR AP/LAT ORIGINALXR SPINE LUMBAR AP/LAT CLINICAL STATEMENT: lower back pain and abdominal bloating Comparison: None FINDINGS:There is exaggerated lordosis and levocurvature of the lumbar spine which contains 5 lumbar-type vertebrae. 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 There is multilevel endplate spurring and facet arthrosis. There is no significant disc space narrowing and the vertebral body heights are maintained. There is no spondylolysis or spondylolisthesis. There are atherosclerotic calcifications in the abdominal aorta and common iliac arteries. The abdominal aorta is aneurysmal measuring 3.8 cm in diameter. The visualized pelvis, sacrum and sacroiliac joints are unremarkable. Round calcification near the left renal fossa could relate to small urinary calculus. IMPRESSION:1. 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 Aneurysm of the abdominal aorta measuring 3.[address] or [address] characterization advised to guide management. Interpreted By: Judah Muniz MDPreliminary Report By: Edgar Umana MDElectronically Signed By: Judah Muniz MD Dictated Date: 11/04/2016 8:57:43 AM Prelim Date: 11/04/2016 9:13:41 AM Sign Date: 11/04/2016 11:11:35 AM Normal [facility] ([place]) Vital Signs Date Time Vital Sign Value Performing Clinician Facility 05-13-2023 14:23-0500 Body weight 63.5 kg Roxanne Godfrey MD Work Phone: [facility] 05-13-2023 14:23-0500 Diastolic blood pressure 94 mm[Hg] Roxanne Godfrey MD Work Phone: [facility] 05-13-2023 14:23-0500 Heart rate 83 /min Roxanne Godfrey MD Work Phone: [facility] 05-13-2023 14:23-0500 Respiratory rate 14 /min Roxanne Godfrey MD Work Phone: [facility] 05-13-2023 14:23-0500 Systolic blood pressure 167 mm[Hg] Roxanne Godfrey MD Work Phone: [facility] 05-07-2023 13:19-0500 Body mass index (BMI) [Ratio] 25.28 kg/m2 Etienne Singh MD Work Phone: [facility] 05-07-2023 13:19-0500 Body temperature 95.9 [degF] Etienne Singh MD Work Phone: [facility] 05-07-2023 13:19-0500 Body weight 64.73 kg Etienne Singh MD Work Phone: [facility] 05-07-2023 13:19-0500 Diastolic blood pressure 86 mm[Hg] Etienne Singh MD Work Phone: [facility] 05-07-2023 13:19-0500 Heart rate 83 /min Etienne Singh MD Work Phone: [facility] 05-07-2023 13:19-0500 Respiratory rate 16 /min Etienne Singh MD Work Phone: [facility] 05-07-2023 13:19-0500 SaO2% (BldA) [Mass fraction] 95 % Etienne Singh MD Work Phone: [facility] 05-07-2023 13:19-0500 Systolic blood pressure 187 mm[Hg] Etienne Singh MD Work Phone: [facility] 12-18-2022 08:59-0400 Body mass index (BMI) [Ratio] 23.95 kg/m2 Etinene Singh MD Work Phone: [facility] 12-18-2022 08:59-0400 Body temperature 97.11 [degF] Etienne Singh MD Work Phone: [facility] 12-18-2022 08:59-0400 Body weight 61.33 kg Etienne Singh MD Work Phone: [facility] 12-18-2022 08:59-0400 Diastolic blood pressure 55 mm[Hg] Etienne Singh MD Work Phone: [facility] 12-18-2022 08:59-0400 Heart rate 105 /min Etienne Singh MD Work Phone: [facility] 12-18-2022 08:59-0400 Respiratory rate 22 /min Etienne Singh MD Work Phone: [facility] 12-18-2022 08:59-0400 SaO2% (BldA) [Mass fraction] 94 % Etienne Singh MD Work Phone: [facility] 12-18-2022 08:59-0400 Systolic blood pressure 115 mm[Hg] Etienne Singh MD Work Phone: [facility] 09-01-2022 14:29-0400 Body mass index (BMI) [Ratio] 25.54 kg/m2 Etienne Singh MD Work Phone: [facility] 09-01-2022 14:29-0400 Body temperature 97.81 [degF] Etienne Singh MD Work Phone: [facility] 09-01-2022 14:29-0400 Body weight 65.41 kg Etienne Singh MD Work Phone: [facility] 09-01-2022 14:29-0400 Diastolic blood pressure 67 mm[Hg] Etienne Singh MD Work Phone: [facility] 09-01-2022 14:29-0400 Heart rate 82 /min Etienne Singh MD Work Phone: [facility] 09-01-2022 14:29-0400 Respiratory rate 16 /min Etienne Singh MD Work Phone: [facility] 09-01-2022 14:29-0400 SaO2% (BldA) [Mass fraction] 96 % Etienne Singh MD Work Phone: [facility] 09-01-2022 14:29-0400 Systolic blood pressure 155 mm[Hg] Etienne Singh MD Work Phone: [facility] 09-01-2022 08:52-0400 Body height 160 cm Milo Ponce MD Work Phone: [facility] 09-01-2022 08:52-0400 Body mass index (BMI) [Ratio] 25.37 kg/m2 Milo Ponce MD Work Phone: [facility] 09-01-2022 08:52-0400 Body temperature 97.39 [degF] Milo Ponce MD Work Phone: [facility] 09-01-2022 08:52-0400 Body weight 64.95 kg Milo Ponce MD Work Phone: [facility] 09-01-2022 08:52-0400 Diastolic blood pressure 56 mm[Hg] Milo Ponce MD Work Phone: [facility] 09-01-2022 08:52-0400 Heart rate 82 /min Milo Ponce MD Work Phone: [facility] 09-01-2022 08:52-0400 Respiratory rate 16 /min Milo Ponce MD Work Phone: [facility] 09-01-2022 08:52-0400 SaO2% (BldA) [Mass fraction] 94 % Milo Ponce MD Work Phone: [facility] 09-01-2022 08:52-0400 Systolic blood pressure 111 mm[Hg] Milo Ponce MD Work Phone: [facility] 08-13-2022 11:33-0400 Body temperature 97.59 [degF] Etienne Singh MD Work Phone: [facility] 08-13-2022 11:33-0400 Diastolic blood pressure 65 mm[Hg] Etienne Singh MD Work Phone: [facility] 08-13-2022 11:33-0400 Heart rate 77 /min Etienne Singh MD Work Phone: [facility] 08-13-2022 11:33-0400 Respiratory rate 18 /min Etienne Singh MD Work Phone: [facility] 08-13-2022 11:33-0400 SaO2% (BldA) [Mass fraction] 95 % Etienne Singh MD Work Phone: [facility] 08-13-2022 11:33-0400 Systolic blood pressure 122 mm[Hg] Etienne Singh MD Work Phone: [facility] 08-12-2022 07:20-0400 Body height 160 cm Etienne Singh MD Work Phone: [facility] 08-12-2022 07:20-0400 Body mass index (BMI) [Ratio] 26.04 kg/m2 Etienne Singh MD Work Phone: [facility] 08-12-2022 07:20-0400 Body weight 66.68 kg Etienne iSngh MD Work Phone: [facility] 05-07-2022 14:44-0500 Body weight 72.53 kg Roxanne Godfrey MD Work Phone: [facility] 05-07-2022 14:44-0500 Diastolic blood pressure 66 mm[Hg] Roxanne Godfrey MD Work Phone: [facility] 05-07-2022 14:44-0500 Heart rate 83 /min Roxanne Godfrey MD Work Phone: [facility] 05-07-2022 14:44-0500 Respiratory rate 14 /min Roxanne Godfrey MD Work Phone: [facility] 05-07-2022 14:44-0500 Systolic blood pressure 137 mm[Hg] Roxanne Godfrey MD Work Phone: [facility] Encounters Encounter Date Encounter Type Care Provider Facility Start: 05-13-2023 End: 05-13-2023 ambulatory ROXANNE GODFREY Facility:[id number] Start: 05-13-2023 End: 05-13-2023 Patient encounter procedure Roxanne Godfrey MD Work Phone: [facility] Comment on above: Ductal carcinoma in situ (DCIS) of left breast (Primary Dx); Estrogen receptor positive status (ER+); Personal history of malignant neoplasm of breast Start: 05-07-2023 End: 05-07-2023 Office outpatient visit 15 minutes Etienne Singh MD Work Phone: Department of Otolaryngology Comment on above: 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) Start: 05-07-2023 ambulatory ETIENNE SINGH Facility:[facility] Start: 05-06-2023 Documentation procedure Mammog lea Coordinator [facility] Start: 02-22-2024 Letter encounter Mammography Coordinator [facility] Department Start: 05-06-2023 ambulatory ROXANNE Beltran y:[id number] Start: 05-06-2023 End: 05-06-2023 Subsequent hospital visit by physician Screen/Diagnostic Mammo [facility] Comment on above: Ductal carcinoma in situ (DCIS) of left breast [D05.12] Start: 12-18-2022 ambulatory ETIENNE SINGH Facility:[facility] Start: 12-18-2022 End: 12-18-2022 Office outpatient visit 15 minutes Etienne Singh MD Work Phone: Department of Otolaryngology Comment on above: Head and neck cancer (Primary Dx) Start: 12-10-2022 ambulatory [facility] Facility:[facility] Start: 09-14-2022 ambulatory [facility] Facility:[facility] Start: 09-14-2022 End: 09-14-2022 Subsequent hospital visit by physician Yaz Garcia PAC Work Phone: PET Scan [facility] [place] Comment on above: Arrived Start: 09-01-2022 End: 09-01-2022 Postop follow up visit related to original px Etienne Singh MD Work Phone: Department of Otolaryngology Comment on above: 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) Start: 09-01-2022 ambulatory [facility] Facility:[facility] Start: 09-01-2022 End: 09-01-2022 Office outpatient new 60 minutes Milo Ponce MD Work Phone: Division of Thoracic Surgery [facility] Comment on above: Mass of left lung; Squamous cell carcinoma of floor of mouth; Non-small cell cancer of left lung Start: 08-26-2022 ambulatory [facility] Facility:[facility] Start: 08-20-2022 ambulatory LIBERTY Moura ility:[facility] Start: 08-20-2022 ambulatory PAYTON Healy ity:[facility] Start: 08-12-2022 End: 08-13-2022 [facility] Start: 08-12-2022 [facility] Start: 08-12-2022 End: 08-13-2022 Evaluation and management of inpatient Etienne Singh MD Work Phone: [id number] Comment on above: Oral cancer Start: 08-07-2022 ambulatory ETIENNE SINGH Facility:[facility] Start: 08-05-2022 ambulatory [facility] [place] Facility:[facility] Start: 08-04-2022 ambulatory [facility] Facility:[facility] Start: 08-04-2022 Encounter for other preprocedural examination [facility] Start: 08-04-2022 ambulatory INDRA DUTTON Facility :[facility] Start: 07-21-2022 ambulatory ETIENNE B SEIM Facility:[facility] Start: 07-16-2022 ambulatory [facility] [place] Facility:[facility] Start: 05-07-2022 End: 05-07-2022 Patient encounter procedure Roxanne Godfrey MD Work Phone: [facility] Comment on above: Ductal carcinoma in situ (DCIS) of left breast (Primary Dx); Estrogen receptor positive status (ER+); Personal history of malignant neoplasm of breast Start: 04-30-2022 End: 04-30-2022 Subsequent hospital visit by physician Screen/Diagnostic Mammo [facility] 3 RADIO MAMMO [facility] Comment on above: SCREENING Start: 11-03-2016 End: 11-08-2016 Ambulatory [facility] Facility[facility] Procedures Date Procedure Procedure Detail Performing Clinician Start: 05-07-2023 Follow-up visit Follow-up ETIENNE SINGH Start: 05-06-2023 Screening mammograph y bi 2-view breast inc cad Roxanne Godfrey MD Work Phone: Start: 09-14-[address] atten uation skull base mid-thigh Yaz Garcia PAC Work Phone: Start: 09-14-2022 Glucose measurement, blood Yaz Garcia PAC Work Phone: Start: 08-13-2022 Creatinine blood Joo Matias MD Work Phone: Start: 08-12-2022 End: 08-12-2022 Esophagoscopy flexible transoral diagnostic Etienne Singh MD Work Phone: Start: 08-12-2022 End: 08-12-2022 Excision lesion floor mouth Etienne Singh MD Work Phone: Start: 08-12-2022 End: 08-12-2022 Laryngoscopy w/wo tracheoscopy dx except Etienne Singh MD Work Phone: Start: 08-12-2022 End: 08-12-2022 Split agrft f/s/n/h/f/g/m/d gt 1st 100 cm/1 % Etienne Singh MD Work Phone: Start: 08-12-2022 ABORH TYPE RECONFIRMATION Mando Hewitt MD Work Phone: Start: 08-12-2022 CBC AND ELECTRONIC DIFF Joo Matias MD Work Phone: Start: 08-12-2022 Complete blood count with white cell differential, automated Joo Matias MD Work Phone: Start: 08-12-2022 Creatinine blood Joo Matias MD Work Phone: Start: 08-12-2022 End: 08-12-2022 CONTINUOUS CARDIAC MONITORING STRIP Other Other Start: 08-04-2022 Antibody screen SHARLENE EMANUEL Comment on above: Performed By: #### X MPO #### [facility] ([facility]) [address] [place] [address] Start: 04-30-2022 Mammography Roxanne tariq MD Work Phone: Start: 04-24-2021 Mammography Screen/Agata gnostic 3 Start: 08-27-2020 Antibody screen Comment on above: Order Comment: Campu s: M Patient transfused or in the past 3 months: NO Is This Patient Going To Surgery? Y Surgery Date: 08/27/20 Start: 08-27-2020 Ecg routine ecg w/le ast 12 lds i&r only Start: 12-30-2016 Lipid 1996 panel - S jordan or Plasma Screen/Diagnostic 3 Plan of Treatment Date Care Activity Detail Author Start: 11-19-2032 Tetanus vaccination TETANUS [facility] Start: 11-19-2032 Urine microalbumin profile DTaP,Tdap,Td Vaccine (2 - Td or Tdap) [facility] Start: 08-13-2025 Diabetes Screening Diabetes Screenin g [facility] Start: 05-06-2024 End: 06-09-2024 MG Breast Screening ESRA SCREENING Radiology Routine 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 receptor positive status (ER+) Personal history of malignant neoplasm of breast Expected: 05/06/2024, Expires: 06/09/2024 [facility] Work Phone: Comment on above: Expected: 05/06/2024 , Expires: 06/09/2024 Start: 05-06-2024 Screening for malignant neoplasm of breast Mammogram Screening [facility] Start: 11-05-2023 End: 11-05-2023 Patient encounter procedure 11/05/2023 9:15 AM EDT Office Visit Department of Otolaryngology [address] [place] [phone] Etienne Singh MD [address] [place] [address] Department of Otolaryngology Start: 08-29-2023 DIABETES SCREEN DIABETES SCREEN [facility] Start: 08-05-2023 Screening for malignant neoplasm of lung LUNG CANCER SCREENING [facility] Start: 05-01-2023 End: 06-03-2023 SERA SCREENING SERA SCREENING Radiology Routine 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 receptor positive status (ER+) Personal history of malignant neoplasm of breast Expected: 05/01/2023, Expires: 06/03/2023 [facility] Work Phone: Comment on above: Expected: 05/01/2023 , Expires: 06/03/2023 Start: 04-30-2023 Mammography MAMMOGRAM [facility] Start: 04-30-2023 Screening for malignant neoplasm of breast Mammogram Screening [facility] Start: 04-12-2023 Shingrix Vaccine (2 of 2) Shingrix Vaccine (2 of 2) [facility] Start: 04-12-2023 Zoster vaccine hzv live for subcutaneous use ZOSTER (SHINGLES) VACCINE (2 of 2) [facility] Start: 04-02-2023 End: 04-02-2023 Patient encounter procedure 04/02/2023 9:45 AM EST Office Visit Department of Otolaryngology [address] [place] [address] Etienne Singh MD [address] [place], [place] [id number] Department of Otolaryngology Start: 03-15-2023 Advance Directive Discussion Advance Directive Discussion [facility] Start: 03-15-2023 Depression Assessment Depression Ass essment [facility] Start: 03-14-2023 Covid-19 Vaccine ( season) Covid-19 Vaccine ( season) [facility] Start: 12-04-2022 End: 12-04-2022 Patient encounter procedure 12/04/2022 10:15 AM EDT Office Visit Department of Otolaryngology [address] [place] [phone] Etienne Singh MD [address] [place], [place] [phone] Department of Otolaryngology Start: 11-13-2022 Influenza vaccination [facility] Start: 09-14-2022 Subsequent hospital visit by physician 09/14/2022 2:30 PM EDT Hospital Encounter [facility] [address] [place] [address] Yaz Garcia, PAC [address] [place] [address] PET Scan [facility] [place] Start: 09-01-2022 End: 09-02-2023 MR Brain WO and W contrast IV MRI BRAIN WITH AND WITHOUT CONTRAST Imaging Routine Non-small cell cancer of left lung Expected: 09/01/2022, Expires: 09/02/2023 [facility] Comment on above: Expected: 09/01/2022 , Expires: 09/02/2023 Start: 09-01-2022 End: 09-01-2022 Patient encounter procedure 09/01/2022 Office Visit Otolaryngology Etienne Singh MD [address] [place] [address] Department of Otolaryngology Start: 08-20-2022 End: 08-20-2022 Patient encounter procedure 08/20/2022 Office Visit Otolaryngology Payton Elder, PAC [address] [place] [address] Department of Otolaryngology Start: 04-24-2022 Mammography MAMMOGRAM [facility] Start: 03-15-2022 ADVANCE DIRECTIVE DISCUSSION ADVANCE DIRECTIVE DISCUSSION [facility] Start: 03-15-2022 DEPRESSION ASSESSMENT DEPRESSION ASS ESSMENT [facility] Start: 12-30-2021 Lipid panel Lipid Screening [facility] Start: 12-30-2021 LIPID SCREEN LIPID SCREEN [facility] Start: 11-13-2021 Influenza vaccination INFLUENZA (#1) [facility] Start: 08-27-2021 COVID-19 VACCINE (5 - Booster for Pfizer series) COVID-19 VACCINE (5 - Booster for Pfizer series) [facility] Start: 08-27-2021 COVID-19 VACCINE (5 - Booster) COVID-19 VACCINE (5 - Booster) [facility] Start: 07-11-2020 COVID-19 VACCINE (3 - Pfizer risk series) COVID-19 VACCINE (3 - Pfizer risk series) [facility] Start: 01-11-2018 Screening for osteoporosis DEXA SCAN DISCUSSION [facility] Start: 12-14-2017 Pneumococcal vaccination PNEUMOCOCCAL VACCINE SERIES (2 - PPSV23 if available, else PCV20) [facility] Start: 02-08-2017 Pneumococcal vaccination [facility] Start: 02-08-2017 Pneumococcal Vaccine : 65+ (2 of 2 - PPSV23 or PCV20) Pneumococcal Vaccine: 65+ (2 of 2 - PPSV23 or PCV20) [facility] Start: 02-10-2016 Zoster vaccine hzv live for subcutaneous use ZOSTER (SHINGLES) VACCINE (1 of 2) [facility] Start: 2014 PNEUMOCOCCAL: 65+ (1 - PCV) PNEUMOCOCCAL: 65+ (1 - PCV) [facility] Start: 12-01-1999 SHINGRIX VACCINE (1 of 2) SHINGRIX VACCINE (1 of 2) [facility] Start: 1994 COLOGUARD (FIT-DNA) COLOGUARD (FIT-D NA) [facility] Start: 1994 Colonoscopy COLONOSCOPY [facility] Start: 1994 COLORECTAL CANCER SCREENING COLORECTAL CANCER SCREENING [facility] Start: [address] COLONOGRAPHY [facility] Start: 1994 FECAL OCCULT BLOOD FECAL OCCULT BLOO D [facility] Start: 1994 Screening for malignant neoplasm of colon [facility] Start: 1994 SIGMOIDOSCOPY SIGMOIDOSCOPY [facility] Start: 1989 Lipid panel LIPID SCREENING [facility] Start: 1989 Screening for malignant neoplasm of breast MAMMOGRAM SCREENING DISCUSSION [facility] Start: 1970 Screening for malignant neoplasm of cervix CERVICAL CANCER SCREENING DISCUSSION [facility] Start: 1968 SHINGRIX VACCINE (1 of 2) SHINGRIX VACCINE (1 of 2) [facility] Start: 1968 Third diphtheria, tetanus and acellular pertussis (DTaP) vaccination TDAP (ADULT) [facility] Start: 1968 Urine microalbumin profile DTAP,TDAP,TD (1 - Tdap) [facility] Start: 12-01-1967 HEPATITIS C SCREENING HEPATITIS C [facility] Start: 12-01-1967 Hepatitis C screening Hepatitis C [facility] Start: 12-01-1955 PNEUMOCOCCAL: 65+ (1 - PCV) PNEUMOCOCCAL: 65+ (1 - PCV) [facility] Start: 1949 Hepatitis C screening HEPATITI S C VIRUS SCREENING [facility] Start: 1949 Screening for osteoporosis DEXA SCAN DISCUSSION [facility] Start: 1949 Tetanus vaccination TETANUS [facility] End: 08-13-2022 CT Guidance for biopsy of Mediastinum CT LUNG/MEDIASTINUM BIOPSY Imaging Routine One Time for 1 Occurrences starting 08/13/2022 until 08/13/2022 [facility] Work Phone: Comment on above: One Time for 1 Occur rences starting 08/13/2022 until 08/13/2022 PDL-1 IHC (KEYTRUDA) AP REQUEST PDL-1 IHC (KEYTRUDA) AP REQUEST Lab Routine Mass of left lung Squamous cell carcinoma of floor of mouth 09/01/2022 9:42 AM EDT [facility] End: 08-12-2022 PT Head and Neck NUC PET HEAD/NECK CA Imaging Urgent One Time for 1 Occurrences starting 08/12/2022 until 08/12/2022 [facility] Work Phone: Comment on above: One Time for 1 Occur rences starting 08/12/2022 until 08/12/2022 SURG PATH ADD ON (PA TH HAS SPECIMEN) SURG PATH ADD ON (PATH HAS SPECIMEN) Surg Path Routine Mass of left lung Squamous cell carcinoma of floor of mouth 09/01/2022 9:42 AM EDT [facility] SURG PATH REQUEST [facility] Work Phone: Comment on above: Release Upon Orderin g for 1 Occurrences starting 08/12/2022, 1 completed [facility] Immunizations Immunization Date Immunization Notes Care Provider Tremayne ho 02-15-2023 zoster vaccine, unspecified formulation Etienne Singh MD Work Phone: [facility] 01-01-2021 influenza virus vaccine, unspecified formulation Etienne Singh MD Work Phone: [facility] 12-16-2015 zoster vaccine, unspecified formulation Etienne Singh MD Work Phone: [facility] Payers Date Payer Category Payer Self-pay 2016 Medicare [id number] 2016 Medicare [id number] 1949 Unknown [id number] 2.16. [id number] 1949 Unknown [id number] 2.16. 840.1.583507.3.579.2.594 1949 Unknown [id number] 2.16. 840.1.750106.3.579.2.594 1949 Unknown [id number] 2.16. 840.1.877349.3.579.2.594 1949 Unknown [id number] 2.16. 840.1.806779.3.579.2.594 1949 Unknown [id number] 2.16. 840.1.105221.3.579.2.594 1949 Unknown [id number] 2.16. 840.1.507461.3.579.2.594 1949 Unknown [id number] 2.16. 840.1.606173.3.579.2.594 1949 Unknown [id number] 2.16. 840.1.853455.3.579.2.594 1949 Unknown [id number] 2.16. 840.1.614856.3.579.2.594 1949 Unknown [id number] 2.16. 840.1.279046.3.579.2.594 1949 Unknown [id number] 2.16. 840.1.339970.3.579.2.594 1949 Unknown [id number] 2.16. 840.1.079510.3.579.2.594 1949 Unknown [id number] 2.16. 840.1.972207.3.579.2.594 1949 Unknown [id number] 2.16. 840.1.133071.3.579.2.594 1949 Unknown [id number] 2.16. 840.1.409959.3.579.2.594 1949 Unknown [id number] 2.16. 840.1.361608.3.579.2.594 1949 Unknown [id number] 2.16. 840.1.317766.3.579.2.594 1949 Unknown [id number] 2.16. 840.1.949217.3.579.2.594 1949 Unknown [id number] 2.16. 840.1.691265.3.579.2.594 1949 Unknown [id number] 2.16. 840.1.600413.3.579.2.594 1949 Unknown [id number] 2.16. 840.1.165777.3.579.2.594 Social History Date Type Detail [facility] Tobacco smoking consumption unknown [facility] Start: 1950 Sex Assigned At Not on file [facility] Start: 05-07-2022 Tobacco smoking status DCIS Smokes tobacco daily [facility] Work Phone: Start: 03-15-1970 End: 03-15-2012 History of tobacco use Cigarette Smoker [facility] Work Phone: Start: 05-07-2022 End: 06-03-2023 Alcohol intake Current drinker of alcohol (finding) [facility] Start: 05-07-2022 History SDOH Alcohol Frequency 4 [facility] Start: 05-07-2022 History SDOH Alcohol Std Drinks 1 [facility] Start: 05-07-2022 History SDOH Social Connections Phone 5 [facility] Start: 05-07-2022 History SDOH Social Connections Get Together 2 [facility] Start: 05-07-2022 History SDOH Social Connections [facility] 3 [facility] Start: 05-07-2022 End: 07-21-2022 Alcohol Comment Social use [facility] Start: 07-21-2022 End: 08-20-2022 Tobacco smoking status NHIS Ex-smoker [facility] Start: 03-15-1970 End: 03-15-2012 History of tobacco use Current smoker [facility] Start: 07-21-2022 End: 05-07-2023 Cigarettes smoked current (pack per day) - Reported 0.5 [facility] Start: 07-21-2022 End: 08-20-2022 Tobacco use and exposure Smokeless tobacco non-user [facility] Start: 08-02-2022 End: 08-12-2022 Exposure to SARS-CoV-2 (event) Not sure [facility] Start: 09-01-2022 End: 05-07-2023 Tobacco use panel [facility] How hard is it for y ou to pay for the very basics like food, housing, medical care, and heating Not hard at all [facility] (I/We) worried anne er (my/our) food would run out before (I/we) got money to buy more. Never true [facility] Do you belong to any clubs or organizations such as yazidi groups, unions, fraternal or athletic groups, or school groups? No [facility] Are you now , , , , never or living with a partner? [facility] How often to you hav e a drink containing alcohol? 2-3 time sa week [facility] How many standard dr inks containing alcohol do you have on a typical day? 1 or 2 [facility] How often do you hav e 6 or more drinks on 1 occasion? Never [facility] Do you feel stress - tense, restless, nervous, or anxious, or unable to sleep at night because your mind is troubled all the time - these days [OSQ] Only a little [facility] Clinical Notes 05-07-2022 to 05-13-2023 Roxanne Godfrey MD - 05/13/2023 3:55 PM Catracho Walsh MD - 05/07/2023 12:45 PM Cosmo Singh MD - 05/07/2023 12:45 PM ESTPatient Juan Singh MD - 12/18/2022 9:45 AM EDT Note Date & Type Note Facility 05-13-2023 Note HNO ID: [id number] Author: ROXANNE GODFREY MD Service: ? Author Type: Physician Type: Progress Notes Filed: 05/13/2023 16:20 Note Text: May 13, 2023 Sarah Dan 1950 [place]: Cookie is here for her yearly checkup. 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 She took Arimidex for 5 years and has been under surveillance only. Since I last saw her she has had quite a bit of new health issues. Most specifically she was diagnosed with an oral cancer found after she broke her dentures and her dentist examined her. She had surgery to excise the oral cancer and this was followed by both radiation therapy and chemotherapy which she finished in October 2022. She has had a number of different problems since her chemo and radiation. 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 That does help a little bit but certainly does not completely resolve the symptoms. She has had some episodes of losing her balance and falling. They did do a CT scan of her head which she tells me was negative. She also has been having memory lapses. She has had some minor scrapes from her falls. She uses a walker sometimes but not all of the time. I strongly urged her to at least use a 3 point cane, if not her walker. She does continue to follow with her oncologist in [place]. She is having no new pulmonary, GI, or long bone symptoms. She has her ongoing symptoms with her rheumatoid arthritis. She feels nothing new or different in either breast. Her last mammogram was 05/06/2023. PAST MEDICAL HISTORY Diagnosis Date Essential hypertension Gout Mixed hyperlipidemia Oral cancer (HCC) Rheumatoid arthritis (HCC) PAST SURGICAL HISTORY Procedure Laterality Date EXCISION OF MALIGNANT LESION, COMPLICATED Oral cavity MASTECTOMY, PARTIAL Left TOTAL ABDOM HYSTERECTOMY Ovaries remain FAMILY HISTORY Problem Relation Age of Onset Breast Cancer Mother Hypertension Other Social History Tobacco Use Smoking status: Every Day Types: Cigarettes Substance Use Topics Alcohol use: Yes Comment: Social use Drug use: Never Current Outpatient Medications Medication Sig Dispense Refill warfarin (COUMADIN) 4 mg tablet gabapentin (NEURONTIN) 300 mg capsule Take 2 capsules by mouth once daily. hydrOXYchloroQUINE (PLAQUENIL) 200 mg tablet Take 1 tablet by mouth once daily. methotrexate 2.5 mg tablet Take 1 tablet by mouth one time a week. metoprolol succinate ER (TOPROL XL) 50 mg 24 hr tablet Take 1 tablet by mouth once daily. allopurinol (ZYLOPRIM) 300 mg tablet No current facility-administered medications for this visit. ALLERGIES No Known Allergies REVIEW OF SYSTEMS: GENERAL: No fever/chills. No unusual weight change. EYES: No blurring or diplopia. No drainage. No unusual vision loss. EARS: No earache. No drainage. No hearing loss. NOSE: No acute congestion or drainage. THROAT: No sore throat. No difficulty swallowing. Some issues with dry mouth and decreased taste since her radiation therapy to the oral cavity. CARDIAC: No chest pains or palpitations. No peripheral edema. PULMONARY: No cough, wheezing, shortness of breath, or hemoptysis. BREAST: See history. No new masses, redness or dimpling of the skin, or nipple discharge. GASTROINTESTINAL: No nausea or vomiting. No diarrhea. No constipation. No change in bowel habits. No abdominal pain. No blood in stool. No dark stool. No jaundice. GENITOURINARY: No dysuria or increased urinary frequency. No blood in the urine. No unusual vaginal bleeding. MUSCULOSKELETAL: Unsteady on her feet. Has had falls. Chronic joint pain from rheumatoid arthritis. No muscle weakness. No long bone pain. NEUROLOGIC: Paresthesias in her feet since chemotherapy. Issues with chemo brain and memory lapses. No transient paralysis. No weakness. No seizures. No syncope. HEMATOLOGIC/LYMPHATIC: No abnormal bruising or bleeding. No enlarged nodes. PSYCH: No anxiety or depression. PHYSICAL EXAM: BP 167/94 Pulse 83 Resp 14 Wt 140 lb (63.5kg) GENERAL: Alert and oriented. Recent and remote memory appears intact today. No acute distress. SKIN: Warm and dry. No jaundice. HEAD: Normocephalic and atraumatic. EYES: Pupils equal, round, and reactive to light. Extraocular movements intact. No scleral icterus. PHARYNX: Clear. I did not remove her dentures. Mild dryness of her oral mucosa. NECK: No cervical or supraclavicular lymphadenopathy. Thyroid palpably normal. Carotids 2+ bilaterally without bruits. Supple neck. HEART: Normal sinus rhythm without gallop or murmur. LUNGS: Full and clear bilaterally with no rales, wheezes, or rhonchi. BREASTS: She has changes on the left from her prior surgery. There are no focal dominant masses palpable on either side. There is no nipple discharge. There is no axillary or supraclavicular lymphadenopathy. ABDOMEN: Soft and non te (more content not included)... [facility] 05-13-2023 History of Present illness Narrative Images from the original note were not included. May 13, 2023 Sarah Dan 1950 [place]: Cookie is here for her yearly checkup. 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 She took Arimidex for 5 years and has been under surveillance only. Since I last saw her she has had quite a bit of new health issues. Most specifically she was diagnosed with an oral cancer found after she broke her dentures and her dentist examined her. She had surgery to excise the oral cancer and this was followed by both radiation therapy and chemotherapy which she finished in October 2022. She has had a number of different problems since her chemo and radiation. 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 That does help a little bit but certainly does not completely resolve the symptoms. She has had some episodes of losing her balance and falling. They did do a CT scan of her head which she tells me was negative. She also has been having memory lapses. She has had some minor scrapes from her falls. She uses a walker sometimes but not all of the time. I strongly urged her to at least use a 3 point cane, if not her walker. She does continue to follow with her oncologist in [place]. She is having no new pulmonary, GI, or long bone symptoms. She has her ongoing symptoms with her rheumatoid arthritis. She feels nothing new or different in either breast. Her last mammogram was 05/06/2023. PAST MEDICAL HISTORY Diagnosis Date Essential hypertension Gout Mixed hyperlipidemia Oral cancer (HCC) Rheumatoid arthritis (HCC) PAST SURGICAL HISTORY Procedure Laterality Date EXCISION OF MALIGNANT LESION, COMPLICATED Oral cavity MASTECTOMY, PARTIAL Left TOTAL ABDOM HYSTERECTOMY Ovaries remain FAMILY HISTORY Problem Relation Age of Onset Breast Cancer Mother Hypertension Other Social History Tobacco Use Smoking status: Every Day Types: Cigarettes Substance Use Topics Alcohol use: Yes Comment: Social use Drug use: Never Current Outpatient Medications Medication Sig Dispense Refill warfarin (COUMADIN) 4 mg tablet gabapentin (NEURONTIN) 300 mg capsule Take 2 capsules by mouth once daily. hydrOXYchloroQUINE (PLAQUENIL) 200 mg tablet Take 1 tablet by mouth once daily. methotrexate 2.5 mg tablet Take 1 tablet by mouth one time a week. metoprolol succinate ER (TOPROL XL) 50 mg 24 hr tablet Take 1 tablet by mouth once daily. allopurinol (ZYLOPRIM) 300 mg tablet No current facility-administered medications for this visit. ALLERGIES No Known Allergies REVIEW OF SYSTEMS: GENERAL: No fever/chills. No unusual weight change. EYES: No blurring or diplopia. No drainage. No unusual vision loss. EARS: No earache. No drainage. No hearing loss. NOSE: No acute congestion or drainage. THROAT: No sore throat. No difficulty swallowing. Some issues with dry mouth and decreased taste since her radiation therapy to the oral cavity. CARDIAC: No chest pains or palpitations. No peripheral edema. PULMONARY: No cough, wheezing, shortness of breath, or hemoptysis. BREAST: See history. No new masses, redness or dimpling of the skin, or nipple discharge. GASTROINTESTINAL: No nausea or vomiting. No diarrhea. No constipation. No change in bowel habits. No abdominal pain. No blood in stool. No dark stool. No jaundice. GENITOURINARY: No dysuria or increased urinary frequency. No blood in the urine. No unusual vaginal bleeding. MUSCULOSKELETAL: Unsteady on her feet. Has had falls. Chronic joint pain from rheumatoid arthritis. No muscle weakness. No long bone pain. NEUROLOGIC: Paresthesias in her feet since chemotherapy. Issues with chemo brain and memory lapses. No transient paralysis. No weakness. No seizures. No syncope. HEMATOLOGIC/LYMPHATIC: No abnormal bruising or bleeding. No enlarged nodes. PSYCH: No anxiety or depression. PHYSICAL EXAM: BP 167/94 Pulse 83 Resp 14 Wt 140 lb (63.5kg) GENERAL: Alert and oriented. Recent and remote memory appears intact today. No acute distress. SKIN: Warm and dry. No jaundice. HEAD: Normocephalic and atraumatic. EYES: Pupils equal, round, and reactive to light. Extraocular movements intact. No scleral icterus. PHARYNX: Clear. I did not remove her dentures. Mild dryness of her oral mucosa. NECK: No cervical or supraclavicular lymphadenopathy. Thyroid palpably normal. Carotids 2+ bilaterally without bruits. Supple neck. HEART: Normal sinus rhythm without gallop or murmur. LUNGS: Full and clear bilaterally with no rales, wheezes, or rhonchi. BREASTS: She has changes on the left from her prior surgery. There are no focal dominant masses palpable on either side. There is no nipple discharge. There is no axillary or supraclavicular lymphadenopathy. ABDOMEN: Soft and non tender. No distention. Normal bowel sounds. No mass or organomegaly. EXTREMITIES: No cyanosis or edema. NEUROLOGIC: Cranial nerves II-XII grossly intact. Grossly intact motor and sensory exam. IMPRESSION: No evidence of active breast disease at 8 years. PLAN: I will continue to follow her yearly. We will arrange for her next mammogram to be done in late April 2024. Roxanne Godfrey MD documented in this encounter [facility] 05-07-2023 History of Present illness Narrative HPI: Sarah Dan was seen 05/07/2023 in the [facility] [...] SCCa - second primary. She completed pulmonary PHYSIOTHERAPIST'S ASSISTANT treatment locally in [place] completed October 2022. Restaging scans reportedly demonstrated persistent disease. She was planning for potential immunotherapy; however, she did not end up moving forward with it - she reports she was told she was unable to do immunotherapy because of her O2 requirement. Patient presents today for surveillance visit. She has no concerns or complaints related to her head and neck cancer including dysphagia, odynophagia, oral or throat pain, lesions or neck lumps. She does endorse recent recurrent falls for which she is being worked up by her PCP and senior it auditor. Denies any new or progressive throat pain, dysphagia, odynophagia, otalgia, hemoptysis, voice change, SOB or significant weight loss. Nursing documentation reviewed. Past Medical History: Diagnosis Date Ductal carcinoma in situ (DCIS) of left breast Essential hypertension, benign Estrogen receptor positive status (ER+) Gout Hyperlipidemia Malignant neoplasm of breast Rheumatoid arthritis Past Surgical History: Procedure Laterality Date LARYNGOSCOPY DIRECT DIAGNOSTIC N/A 08/12/2022 Laterality: N/A; Surgeon: Etienne Singh MD; Location: [facility] OR ESOPHAGOSCOPY DIAGNOSTIC N/A 08/12/2022 Laterality: N/A; Surgeon: Etienne Singh MD; Location: [facility] OR EXCISION LESION FLOOR OF MOUTH Left 08/12/2022 Laterality: Left; Surgeon: Etienne Singh MD; Location: [facility] OR SIALODOCHOPLASTY Bilateral 08/12/2022 Laterality: Bilateral; Surgeon: Etienne Singh MD; Location: [facility] MA[facility] OR GRAFT SKIN SPLIT THICKNESS EAR EYELID FACE MOUTH ORBIT (STSG) Bilateral 08/12/2022 Laterality: Bilateral; Surgeon: Etienne Singh MD; Location: [facility] MAIN OR OTHER SURGICAL 2020 abdominal aortic aneurysm repair MASTECTOMY PARTIAL (LUMPECTOMY) Left OTHER SURGICAL L 2nd toe ambutated, TOTAL ABDOMINAL HYSTERECTOMY Ovaries remain Current Outpatient Medications Medication Sig Dispense Refill Gabapentin 100 MG capsule Take 1-3 capsules by mouth 2 times daily. Takes 100mg capsule in am and three 100mg capsules in pm Multiple Vitamins-Minerals (CENTRUM SILVER 50+WOMEN PO) Take 1 tablet by mouth daily every morning. warfarin 4 MG tablet Acetaminophen 325 MG tablet Take 2 tablets by mouth every 6 hours as needed. No current facility-administered medications for this visit. No Known Allergies Exam: Patient with pulse ox of 55% when arriving to clinic, patient not wearing supplemental oxygen O2 sats improved to 94% on 2L NC BP 187/86 (BP Location: Right arm, BP Position: Sitting) Pulse 83 Temp 95.9 F (35.5 C) (Temporal) Resp 16 Wt 64.7 kg (142 lb 11.2 oz) SpO2 95% BMI 25.28 kg/m Smoking Status Former Documented vital signs from today's visit reviewed. Physical exam including head and neck examination of the oral cavity, oropharynx, larynx, and hypopharynx including indirect mirror exam as well as inspection and palpation of the face, parotid and neck is remarkable for findings consistent with postoperative changes and negative for new lesions, masses or lymphadenopathy. Left FOM healed very well. No intra oral lesions. No infection. Data: No new available today. Impression/Plan: Sarah Dan is a 72 y.o. 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 She is s/p surgery for the FOM and PHYSIOTHERAPIST'S ASSISTANT of the lung. Overall I believe patient is doing well and without concern in the head and neck. There is no concern for locoregional recurrent disease of the head and neck today on exam and specifically no palpable LAD. She is continuing to follow up locally with treatment for her lung disease. She was also instructed that she should follow up with her PCP and senior it auditor for workup for her recent falls. The etiology of her falls do not appear to be vertigo or ear related based on history. Patient to RTC in 6 months for ongoing surveillance of the head/neck. HPI: Sarah Dan was seen 05/07/2023 in the [facility]cology Clinic [...] SCCa - second primary. She completed pulmonary PHYSIOTHERAPIST'S ASSISTANT treatment locally in [place] completed October 2022. Restaging scans reportedly demonstrated persistent disease. She was planning for potential immunotherapy; however, she did not end up moving forward with it - she reports she was told she was unable to do immunotherapy because of her O2 requirement. Patient presents today for surveillance visit. She has no concerns or complaints related to her head and neck cancer including dysphagia, odynophagia, oral or throat pain, lesions or neck lumps. She does endorse recent recurrent falls for which she is being worked up by her PCP and senior it auditor. Denies any new or progressive throat pain, dysphagia, odynophagia, otalgia, hemoptysis, voice change, SOB or significant weight loss. Nursing documentation reviewed. Past Medical History: Diagnosis Date Ductal carcinoma in situ (DCIS) of left breast Essential hypertension, benign Estrogen receptor positive status (ER+) Gout Hyperlipidemia Malignant neoplasm of breast Rheumatoid arthritis Past Surgical History: Procedure Laterality Date LARYNGOSCOPY DIRECT DIAGNOSTIC N/A 08/12/2022 Laterality: N/A; Surgeon: Etienne Singh MD; Location: [facility] OR ESOPHAGOSCOPY DIAGNOSTIC N/A 08/12/2022 Laterality: N/A; Surgeon: Etienne Singh MD; Location: [facility] OR EXCISION LESION FLOOR OF MOUTH Left 08/12/2022 Laterality: Left; Surgeon: Etienne Singh MD; Location: [facility] OR SIALODOCHOPLASTY Bilateral 08/12/2022 Laterality: Bilateral; Surgeon: Etienne Singh MD; Location: [facility] OR GRAFT SKIN SPLIT THICKNESS EAR EYELID FACE MOUTH ORBIT (STSG) Bilateral 08/12/2022 Laterality: Bilateral; Surgeon: Etienne Singh MD; Location: [facility] OR OTHER SURGICAL 2020 abdominal aortic aneurysm repair MASTECTOMY PARTIAL (LUMPECTOMY) Left OTHER SURGICAL L 2nd toe ambutated, TOTAL ABDOMINAL HYSTERECTOMY Ovaries remain Current Outpatient Medications Medication Sig Dispense Refill Gabapentin 100 MG capsule Take 1-3 capsules by mouth 2 times daily. Takes 100mg capsule in am and three 100mg capsules in pm Multiple Vitamins-Minerals (CENTRUM SILVER 50+WOMEN PO) Take 1 tablet by mouth daily every morning. warfarin 4 MG tablet Acetaminophen 325 MG tablet Take 2 tablets by mouth every 6 hours as needed. No current facility-administered medications for this visit. No Known Allergies Exam: Patient with pulse ox of 55% when arriving to clinic, patient not wearing supplemental oxygen O2 sats improved to 94% on 2L NC BP 187/86 (BP Location: Right arm, BP Position: Sitting) Pulse 83 Temp 95.9 F (35.5 C) (Temporal) Resp 16 Wt 64.7 kg (142 lb 11.2 oz) SpO2 95% BMI 25.28 kg/m Smoking Status Former Documented vital signs from today's visit reviewed. Physical exam including head and neck examination of the oral cavity, oropharynx, larynx, and hypopharynx including indirect mirror exam as well as inspection and palpation of the face, parotid and neck is remarkable for findings consistent with postoperative changes and negative for new lesions, masses or lymphadenopathy. Left FOM healed very well. No intra oral lesions. No infection. Data: No new available today. Impression/Plan: Sarah Dan is a 72 y.o. 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 She is s/p surgery for the FOM and PHYSIOTHERAPIST'S ASSISTANT of the lung. Overall I believe patient is doing well and without concern in the head and neck. There is no concern for locoregional recurrent disease of the head and neck today on exam and specifically no palpable LAD. She is continuing to follow up locally with treatment for her lung disease. She was also instructed that she should follow up with her PCP and senior it auditor for workup for her recent falls. The etiology of her falls do not appear to be vertigo or ear related based on history. Patient to RTC in 6 months for ongoing surveillance of the head/neck. Attending Physician Attestation I independently interviewed, examined and formulated the medical decision making. Any procedures were performed by myself. The details of my interview, examination findings, and medical decision-making confirmed the findings below. I have personally amended the clinical encounter documentation where appropriate. I saw this patient with Shelton Walsh MD and personally wrote the impression and plan. Etienne Singh MD Otolaryngology-Head and Neck Surgery documented in this encounter [facility] 05-07-2023 Instructions Mackenzie Gonzalez RN - 05/07/2023 12:45 PM EST Please call Dr. Samantha Mann's primary nurse at [phone] if you notice any new lumps in head or neck, new onset of difficulty with swallowing, persistent ear pain, hoarseness or new pain in head and neck that does not go away for 2 weeks. For covid vaccine call [phone] ([phone]). [facility] is now providing 3rd covid vaccine doses. documented in this encounter [facility] 05-06-2023 Miscellaneous Notes May 06, 2023 PID: [id number] Sarah A. Mayur [address] [place] [id number] Dear Marcy Dan, We are pleased to inform you that the results of your recent breast imaging exam on 05/06/2023 are normal. Early detection of cancer is very important. We also understand recommendations regarding breast cancer screening are controversial. Please discuss with your primary care provider which strategy is best for you and whether a mammogram is right for you. Your imaging studies and report will be kept on file at [facility] as part of your permanent medical record and are available for your continuing care. Thank you for allowing us to help in meeting your health care needs. Sincerely, Dr. Ojeda Interpreting Radiologist [facility] (Normal over 40) documented in this encounter [facility] 12-18-2022 History of Present illness Narrative HPI: Sarah Dan was seen 12/18/2022 in the Head and [...] SCCa - second primary. She completed pulmonary PHYSIOTHERAPIST'S ASSISTANT treatment locally in [place] completed October 2022. Patient presents today for surveillance visit. She just finished PHYSIOTHERAPIST'S ASSISTANT locally for lung cancer. She reports that [...] DIAGNOSTIC N/A 08/12/2022 Laterality: N/A; Surgeon: Etienne Singh MD; Location: [facility] OR ESOPHAGOSCOPY DIAGNOSTIC N/A 08/12/2022 Laterality: N/A; Surgeon: Etienne Singh MD; Location: [facility] OR EXCISION LESION FLOOR OF MOUTH Left 08/12/2022 Laterality: Left; Surgeon: Etienne Singh MD; Location: [facility] OR SIALODOCHOPLASTY Bilateral 08/12/2022 Laterality: Bilateral; Surgeon: Etienne Singh MD; Location: [facility] OR GRAFT SKIN SPLIT THICKNESS EAR EYELID FACE MOUTH ORBIT (STSG) Bilateral 08/12/2022 Laterality: Bilateral; Surgeon: Etienne Singh MD; Location: [facility] OR OTHER [...] ongoing surveillance of the head/neck. HPI: Sarah Dan was seen 12/18/2022 in the Head and [...] SCCa - second primary. She completed pulmonary PHYSIOTHERAPIST'S ASSISTANT treatment locally in [place] completed October 2022. Patient presents today for surveillance visit. She just finished PHYSIOTHERAPIST'S ASSISTANT locally for lung cancer. She reports that [...] DIAGNOSTIC N/A 08/12/2022 Laterality: N/A; Surgeon: Etienne Singh MD; [facility] OR ESOPHAGOSCOPY DIAGNOSTIC N/A 08/12/2022 Laterality: N/A; Surgeon: Etienne Singh MD; Location: [facility] OR EXCISION LESION FLOOR OF MOUTH Left 08/12/2022 Laterality: Left; Surgeon: Etienne Singh MD; Location: [facility] OR SIALODOCHOPLASTY Bilateral 08/12/2022 Laterality: Bilateral; Surgeon: Etienne Singh MD; Location: [facility] OR GRAFT SKIN SPLIT THICKNESS EAR EYELID FACE MOUTH ORBIT (STSG) Bilateral 08/12/2022 Laterality: Bilateral; Surgeon: Etienne Singh MD; Location: [facility] OR OTHER [...] personally wrote the impression and plan. Etienne Singh MD Otolaryngology-Head and Neck Surgery documented in this encounter [facility] 12-18-2022 Instructions Mackenzie Gonzalez RN - 12/18/2022 9:45 AM EDT Please contact your Primary Care Physician regarding your oxygen. O2 Level was 55% on room air. O2 Level was 94% on 2L NC. documented in this encounter [facility] 09-01-2022 History of Present illness Narrative HPI: Sarah Dan was seen 09/01/2022 in the Head and [...] second primary. She is planned for pulmonary PHYSIOTHERAPIST'S ASSISTANT treatment locally in [place]. History and review of systems is negative [...] DIAGNOSTIC N/A 08/12/2022 Laterality: N/A; Surgeon: Etienne Singh MD; [facility] ESOPHAGOSCOPY DIAGNOSTIC N/A 08/12/2022 Laterality: N/A; Surgeon: Etienne Singh MD; Location: [facility] OR EXCISION LESION FLOOR OF MOUTH Left 08/12/2022 Laterality: Left; Surgeon: Etienne Singh MD; Location: [facility] OR SIALODOCHOPLASTY Bilateral 08/12/2022 Laterality: Bilateral; Surgeon: Etienne Singh MD; Location: [facility] OR GRAFT SKIN SPLIT THICKNESS EAR EYELID FACE MOUTH ORBIT (STSG) Bilateral 08/12/2022 Laterality: Bilateral; Surgeon: Etienne Singh MD; Location[facility] OTHER [...] with the guidelines of the [employer] Protocols and the AJCC Cancer Staging [...] I am recommending patient proceed with local PHYSIOTHERAPIST'S ASSISTANT for lung cancer. The patient's case was reviewed at tumor board and all agreed to observe the neck given the new diagnosis of lung cancer. Will plan for close clinical observation with imaging. She has no further restrictions and can resume normal diet. Patient to return to clinic for surveillance follow-up visit in 3 months or sooner if new concerns arise. HPI: Sarah Dan was seen 09/01/2022 in the Head and [...] second primary. She is planned for pulmonary PHYSIOTHERAPIST'S ASSISTANT treatment locally in [place]. History and review of systems is negative [...] DIAGNOSTIC N/A 08/12/2022 Laterality: N/A; Surgeon: Etienne Singh MD; [facility] ESOPHAGOSCOPY DIAGNOSTIC N/A 08/12/2022 Laterality: N/A; Surgeon: Etienne Singh MD; Location: [facility] EXCISION LESION FLOOR OF MOUTH Left 08/12/2022 Laterality: Left; Surgeon: Etienne Singh MD; Location: [facility] OR SIALODOCHOPLASTY Bilateral 08/12/2022 Laterality: Bilateral; Surgeon: Etienne Singh MD; Location: [facility] OR GRAFT SKIN SPLIT THICKNESS EAR EYELID FACE MOUTH ORBIT (STSG) Bilateral 08/12/2022 Laterality: Bilateral; Surgeon: Etienne Singh MD; [facility] OTHER [...] with the guidelines of the [employer] Protocols and the AJCC Cancer Staging [...] I am recommending patient proceed with local PHYSIOTHERAPIST'S ASSISTANT for lung cancer. The patient's case was [...] personally wrote the impression and plan. Etienne Singh MD Otolaryngology-Head and Neck Surgery documented in this encounter [facility] 09-01-2022 Instructions Mackenzie Gonzalez RN - 09/01/2022 1:15 PM EDT Please call Dr. Samantha Mann's primary nurse at [phone] if you notice any new lumps in head or neck, new onset of difficulty with swallowing, persistent ear pain, hoarseness or new pain in head and neck that does not go away for 2 weeks. For covid vaccine call [phone] ([phone]). [facility] is now providing 3rd covid vaccine doses. documented in this encounter [facility] 09-01-2022 History of Present illness Narrative Ms. [...] for immunotherapy. The patient is from the [place] area and is interested in the obtaining her treatment up there. We talked about the consultation with the [facility] in [place]. She is agreeable with the plan. 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 female former smoker [...] DIAGNOSTIC N/A 08/12/2022 Laterality: N/A; Surgeon: Etienne Singh MD; [facility] ESOPHAGOSCOPY DIAGNOSTIC N/A 08/12/2022 Laterality: N/A; Surgeon: Etienne Singh MD; Location: [facility] EXCISION LESION FLOOR OF MOUTH Left 08/12/2022 Laterality: Left; Surgeon: Etienne Singh MD; Location: [facility] OR SIALODOCHOPLASTY Bilateral 08/12/2022 Laterality: Bilateral; Surgeon: Etienne Singh MD; Location: [facility] OR GRAFT SKIN SPLIT THICKNESS EAR EYELID FACE MOUTH ORBIT (STSG) Bilateral 08/12/2022 Laterality: Bilateral; Surgeon: Etienne Singh MD; Location[facility] OTHER [...] the visit patient reports as noted in [facility]. All other systems queried and are negative. [...] like to meet with local oncologist in [place], [place] to discuss chemoradiation options. We would recommend that she also have a brain MRI to complete staging and order placed for PDL-1 add on. She may follow up with thoracic surgery on an as needed basis. Jaelyn Yen, ROOF TRUSS MACHINE TENDER-FOREIGN LANGUAGE STENOGRAPHER # [id number] Associated attestation - Milo Ponce MD - [...] of the clinic visit. The nurse practitioner/physician promotions assistant sales marketing and I have spoken with the patient and provided written and verbal instructions for the patient. The JANNETH note has been reviewed and I agree with the assessment and plan. Follow-up arrangements were made prior to the patient being discharged from the clinic. 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 female former smoker [...] DIAGNOSTIC N/A 08/12/2022 Laterality: N/A; Surgeon: Etienne Singh MD; [facility] ESOPHAGOSCOPY DIAGNOSTIC N/A 08/12/2022 Laterality: N/A; Surgeon: Etienne Singh MD; Location: [facility] EXCISION LESION FLOOR OF MOUTH Left 08/12/2022 Laterality: Left; Surgeon: Etienne Singh MD; Location: [facility] OR SIALODOCHOPLASTY Bilateral 08/12/2022 Laterality: Bilateral; Surgeon: Etienne Singh MD; Location: [facility] OR GRAFT SKIN SPLIT THICKNESS EAR EYELID FACE MOUTH ORBIT (STSG) Bilateral 08/12/2022 Laterality: Bilateral; Surgeon: Etienne Singh MD; Location[facility] OTHER [...] the visit patient reports as noted in [facility]. All other systems queried and are negative. [...] like to meet with local oncologist in [place], [place] to discuss chemoradiation options. We would recommend that she also have a brain MRI to complete staging and order placed for PDL-1 add on. She may follow up with thoracic surgery on an as needed basis. Jaelyn Yen, ROOF TRUSS MACHINE TENDER-FOREIGN LANGUAGE STENOGRAPHER # [id number] Associated attestation - Milo Ponce MD - [...] of the clinic visit. The nurse practitioner/physician promotions assistant sales marketing and I have spoken with the patient and provided written and verbal instructions for the patient. The JANNETH note has been reviewed and I agree with the assessment and plan. Follow-up arrangements were made prior to the patient being discharged from the clinic. Milo Ponce MD documented in this encounter [facility] 08-13-2022 Note Formatting of this n ote is different from the original. 08/13/22 1359 Referral Information Arrived From admitted [...] medical team. Oxy and peridex sent to [facility], total cost is $3. Durable Medical Equipment Walker delivered to bedside via [facility] Medical Choice Was Patient Choice Provided: Yes Transportation Transportation will be provided by spouse. Education Discharge education provided by the medical team and updated in the After Visit Summary. Follow Up(s) Any follow up requested by the medical team arranged. Appointments in the After Visit Summary. 08/20/2022 11:30 AM Payton Elder Department of Otolaryngology Arrive at: Arrive to Ground Floor Registration [facility] 08/20/2022 2:45 PM Liberty Escalera; [facility] [place] [address] Arrive at: Arrive to [facility], Second Floor Registration Desk [place] 09/01/2022 1:15 PM Etienne Singh Department of Otolaryngology Arrive at: Arrive to [...] planning needs. La AMIN RN Patient Care Gold Layer Phone [phone] For assistance on evenings/weekends, please page the float team at [phone]. [facility] 08-13-2022 Miscellaneous Notes 08/13/22 1359 Referral Information [...] medical team. Oxy and peridex sent to [facility], total cost is $3. Durable Medical Equipment Walker delivered to bedside via [facility] Medical Choice Was Patient Choice Provided: Yes [...] 08/20/2022 2:45 PM Liberty Escalera; [facility] [place] [address] Arrive at: Arrive to [facility] Mat[facility], Second Floor Registration Desk [place] 09/01/2022 1:15 PM Etienne Singh Department of Otolaryngology Arrive at: Arrive to [...] planning needs. La AMIN RN Patient Care Gold Layer Phone [phone] For assistance on evenings/weekends, please page the float team at [phone]. 08/13/22 1007 Referral Information Arrived From admitted as an inpatient Readmission Information Was patient readmitted within 30 Days? No Information Source Information Source patient Information Source Name Cookie Information Source Number see demographics Outpatient Providers Outpatient Providers Updated In IHIS Yes Contact Information Rn Cardiovascular/SW Added to Care Team Yes This Manufacturing Specialist is Primary Rn Cardiovascular/SW No Rn Cardiovascular Name Eli Soler Rn Cardiovascular's Living Environment Lives With spouse Living Arrangements [...] Employment/Financial Employed? 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 La AMIN RN Patient Care Gold Layer Phone [phone] For assistance on evenings/weekends, please page the float team at [phone]. Problem: Patient Care Overview Goal: Plan of Care Review Outcome: Ongoing Goal: Individualization & Mutuality Outcome: Ongoing Goal: Discharge Needs Assessment Outcome: Ongoing Goal: Interdisciplinary Rounds/Family Conf Outcome: Ongoing On admission to C21A, from PACU a dual RN initial assessment of skin condition was performed by Kellie Grimm RN and Sondra MORAN. Skin Assessment: On assessment, patient has no wounds noted. Patient has posterior neck incision SYLVIA with sutures and bolster in place in mouth. Clem Score: 19 LDA Added:none Kellie Grimm RN Sarah Dan ([id number]) PRE OPERATIVE DIAGNOSIS Squamous cell carcinoma of [...] carcinoma SURGEON Surgeon(s) and Role: * Etienne Singh MD - Primary ANESTHESIOLOGIST Anesthesiologist: Filiberto Ames MD Guitar Maker Assisting: Aj Miller MD SURGICAL STAFF Sales Support Consultant: Joo Bell RN Relief Sales Support Consultant: Yulia Barnett RN Relief Scrub: Yulia Barnett RN Scrub Person: Milagros Ballard RN; Shanique Schumacher; Dimitri Villanueva RN Resident Assisting: Joo Matias MD COMPLICATIONS None ESTIMATED BLOOD LOSS 20 mL SPECIMENS ID Type Source Tests Collected by Time Destination 1 : Left floor of mouth excision, stitch = medial Permanent SURG PATH SURG PATH REQUEST Etienne Singh MD 08/12/2022 1139 2 : Lateral margin Frozen SURG PATH SURG PATH REQUEST Etienne Singh MD 08/12/2022 1143 3 : Superior margin Frozen SURG PATH SURG PATH REQUEST Etienne Singh MD 08/12/2022 1143 4 : Inferior margin Frozen SURG PATH SURG PATH REQUEST Etienne Singh MD 08/12/2022 1143 5 : Medial margin Frozen SURG PATH SURG PATH REQUEST Etienne Singh MD 08/12/2022 1143 6 : Deep margin Frozen SURG PATH SURG PATH REQUEST Etienne Singh MD 08/12/2022 1144 Joo Matias MD August 12, 2022 1:02 PM Assessment: POD 0 Surgeon: Samantha Diagnosis: FOM SCCis Procedure: DLE, FOM excision, bilateral sialodochoplasty Plan Airway: [place] Diet: soft diet x 2 weeks Wound (xander/sutures): bolster FOM (discharge with removal at 2 week follow up - if not tolerating can discuss removal prior to DC with Samantha) Antibiotics/Cultures: peridex x 2 weeks Labs (Ca, PTH, TSH, Free T4): per protocol Anticoagulation: Std DVT ppx PT/OT/PINKING MACHINE OPERATOR: PT/OT Consults: IP for pulmonary biopsy Pertinent PMHx: HTN, AAA s/p repair 2020, gout, breast cancer, RA Other: Left lower lobe mass with extension to hilum, TB rec IP biopsy Daily Plan: - IP Consult for inpatient biopsy Path: Dispo: pending IP biopsy Follow ups: Seim 2 weeks for bolster removal Pt denies history of chemo and radiation. Pt denies metal or foreign objects in body. Denies history of seizures. Operative Report DATE OF SERVICE: 08/12/2022 PATIENT: Sarah Dan PREOPERATIVE DIAGNOSIS: 1. Remote smoking history 2. [...] reconstruction, 2 x 1.5 cm SURGEON: Etienne Singh MD BUSINESS ARCHITECT: Joo Matias MD ANESTHESIA: General endotracheal. ESTIMATED BLOOD LOSS: 20 mL. COMPLICATIONS: None CONDITION: Stable to PACU. INTRAOPERATIVE FINDINGS: 1. Left ventral tongue/floor of mouth lesion, excised 2. Frozen margins negative for carcinoma SPECIMEN: ID Type Source Tests Collected by Time Destination 1 : Left floor of mouth excision, stitch = medial Permanent SURG PATH SURG PATH REQUEST Etienne Singh MD 08/12/2022 1139 2 : Lateral margin Frozen SURG PATH SURG PATH REQUEST Etienne Singh MD 08/12/2022 1143 3 : Superior margin Frozen SURG PATH SURG PATH REQUEST Etienne Singh MD 08/12/2022 1143 4 : Inferior margin Frozen SURG PATH SURG PATH REQUEST Etienne Singh MD 08/12/2022 1143 5 : Medial margin Frozen SURG PATH SURG PATH REQUEST Etienne Singh MD 08/12/2022 1143 6 : Deep margin Frozen SURG PATH SURG PATH REQUEST Etienne Singh MD 08/12/2022 1144 INDICATIONS AND CONSENT: Sarah Dan is a 71 y.o. who presented to [...] of mouth/ventral tongue lesion involving the left Tuscola's ducts, 13 mm x 15 mm. Lesion [...] was marked around the lesion. The right Tuscola's duct was not involved in the resection. The right duct was probed and was patent, with saliva expressed with palpation of the submandibular gland. The left Tuscola's duct was probed with a salivary probe. [...] to the PACU in stable condition. Dr. Singh was present and participated through the entirety of the procedure. Associated attestation - Etienne Singh MD - 08/12/2022 1:51 PM EDT ATTENDING PHYSICIAN ATTESTATION: I was physically present and actively involved throughout the entirety of this procedure as stated below. Etienne Singh MD Otolaryngology-Head and Neck Surgery documented in this encounter [facility] 08-13-2022 Hospital course Narrative Discharge Summary Name: Sarah Dan Age: 71 y.o. Birthday: 1950 Admit Date: 08/12/2022 6:46 AM Discharge Date: 08/13/2022 Admission Information Admitting Physician: Etienne Singh MD Discharge Information Discharge Physician: Etienne Singh Md Problem List Active Hospital Problems Diagnosis Oral cancer Resolved Hospital Problems No resolved problems to display. Brief Summary of Hospital Course for Discharge Summary: On 08/12/22, Sarah Dan underwent direct laryngoscopy, esophagoscopy, FOM excision, and bilateral sialodochoplasty by Dr. Singh. The patient tolerated the procedure well. The [...] Commonly known as: ULTRAM Medication Instructions: PLEASE HAT AND CAP OPENER YOUR OXYCODONE AND PERIDEX AND YOUR DISCOUNT DRUG MART. Follow-up: [facility] Medical / Immedia Follow up They have provided a walker. Call them with questions. Upcoming Appointments (up to five)-Some appointments for Medical Center outpatient clinics or diagnostic testing locations are not displayed below Provider Department Dept Phone 08/20/2022 2:45 PM Liberty Escalera; [facility] [address] [place] [address] Arrive at: Arrive to Sandy Matias, Second Floor Registration Desk [phone] 09/01/2022 1:15 PM Etienne Singh Department of Otolaryngology Arrive at: Arrive to Ground Floor Registration [phone] documented in this encounter [facility] 08-13-2022 Hospital Discharge instructions La Hood RN - 08/13/2022 10:11 AM EDT Images from the original note were not included. Evening and Weekend Contacts If you have questions or concerns during evening, weekend, or holiday hours, please call: -[facility] heavy mobile equipment operator at [phone]. Ask the heavy mobile equipment operator to page the on-call doctor for Ear, Nose and Throat, the service that was responsible for your care while you were in the hospital. If you having an emergency, call [phone]. Medical Issues: For clinical questions or medical concerns during regular business hours, please call [phone] and you will be routed to your physician's team. For discharge planning questions/concerns, please contact: BUSHRA Singleton ACM- (Patient Care Gold Layer) [phone] LUISA Benitez, VICKY (Patient Care Gold Layer) [phone] BUSHRA Maher (Caustic Plant Worker) [phone] Your Rn Cardiovascular (PCRM) has arranged your appointments for follow up based on your preference of where you would like to continue your care. If you are unable to attend appointments that have been arranged for you, it is your responsibility to call to reschedule at least 48 hours prior to the appointment date. Your PCRM has arranged additional care needs such as [...] the hospital. This call will come from [phone]. If you are unable to answer or do not receive the automated call, please call [phone] to complete this important evaluation. By answering the phone evaluation, a [facility] nurse will be notified if you have any questions or concerns and call you back. If you have an immediate medical need call your doctor s office, or if you have a medical emergency call 101. .You are scheduled for a Bronchoscopy procedure. Date: 08/20/2022 Time: 2:45PM Please check into the 2nd floor of [facility] 1 hour prior to the procedure. The dental detail representative will direct you to the procedure [...] team know. You must have a responsible transit mixer driver drive you to and from the procedure and you must have someone to stay with you the night after the procedure. If you have home oxygen please bring that with you the day of the procedure. Please be aware that pulmonary procedures DO NOT show up on your [facility] appointment list. If any questions, our Pulmonary Clinic . La Hood RN - 08/13/2022 2:19 PM EDT PLEASE HAT AND CAP OPENER YOUR OXYCODONE AND PERIDEX AND YOUR DISCOUNT [...] than 100.5 documented in this encounter [facility] 08-13-2022 Note Formatting of this n ote is different from the original. 08/13/22 1007 Referral Information Arrived From admitted as an inpatient Readmission Information Was patient readmitted within 30 Days? No Information Source Information Source patient Information Source Name Cookie Information Source Number see demographics Outpatient Providers Outpatient Providers Updated In IHIS Yes Contact Information Rn Cardiovascular/SW Added to Care Team Yes This Manufacturing Specialist is Primary Rn Cardiovascular/SW No Rn Cardiovascular Name Eli Soler Rn Cardiovascular's Living Environment Lives With spouse Living Arrangements [...] Employment/Financial Employed? Yes Employment Details works in [employer] at local [employer]; works in [employer] Employment/Financial Concerns no Source Of Income salary/wages Financial Concerns none Insurance Medical Insurance Verified Yes Prescription Coverage Yes Pharmacy updated in IHIS Yes Initial Discharge Planning Home Care Services (CHEMICAL PROCESSING EQUIPMENT REPAIRER) No Home Therapies (CHEMICAL PROCESSING EQUIPMENT REPAIRER) None DME (CHEMICAL PROCESSING EQUIPMENT REPAIRER) None Medical Supplies (CHEMICAL PROCESSING EQUIPMENT REPAIRER) None Patient Goal for Discharge Get better [...] team updated. La AMIN RN Patient Care Gold Layer Phone [phone] For assistance on evenings/weekends, please page the float team at [phone]. [facility] 08-13-2022 Consult note Associated Order (s): IP CONSULT TO INTERVENTIONAL RADIOLOGY Images from the original note were not included. Interventional Radiology Consult Note [facility] music publicist [phone] - [facility] music publicist [phone] Admission Date: 08/12/2022 Requesting Provider/Service: Anay Patel, AUBREY Reason for Consult: left lower lobe lung mass biopsy HPI/Imaging Findings: Sarah Dan is a 71 y.o. female with a [...] No Known Allergies IMPRESSION AND PLAN Sarah Dan is a 71 y.o. female with a [...] increase the time from consult to procedure. [facility] Work Phone: 08-13-2022 Consult note Associated Order (s): IP CONSULT TO INTERVENTIONAL RADIOLOGY Images from the original note were not included. Interventional Radiology Consult Note [facility] music publicist [phone] - [facility] music publicist [phone] Admission Date: 08/12/2022 Requesting Provider/Service: AUBREY Phillips Reason for Consult: left lower lobe lung mass biopsy HPI/Imaging Findings: Sarah Dan is a 71 y.o. female with a [...] No Known Allergies IMPRESSION AND PLAN Sarah Dan is a 71 y.o. female with a [...] Lung mass CURRENT HOSPITALIZATION: Admit Date: 08/12/2022 [facility] Hospital LOS: 1 day History of Presenting Illness: Sarah Dan is a 71 y.o. 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 Assessment and Plan: Sarah Dan is a 71 y.o. female with tobacco [...] Barba MD PGY 7 Interventional Pulmonology Fellow [facility] Pager: [phone] Associated attestation - Liberty Escalera [facility] - [...] tissue biopsy next week Liberty Escalera MD Parts Designer Division of pulmonary, critical care and sleep medicine Department of Internal Medicine documented in this encounter [facility] 08-13-2022 History of Present illness Narrative Last [...] DLE, FOM excision, bilateral sialodochoplasty Plan Airway: [place] Diet: soft diet x 2 weeks Wound (xander/sutures): bolster FOM (discharge with removal at 2 week follow up - if not tolerating can discuss removal prior to DC with Seim) Antibiotics/Cultures: peridex x 2 weeks Labs (Ca, PTH, TSH, Free T4): per protocol Anticoagulation: Std DVT ppx PT/OT/PINKING MACHINE OPERATOR: PT/OT Consults: IP for pulmonary biopsy Pertinent [...] Otolaryngology - Head & Neck Surgery Pager: [phone] documented in this encounter [facility] 08-13-2022 Consult note Associated Order (s): IP CONSULT TO INTERVENTIONAL PULMONOLOGY Images from the original note were not included. INTERVENTIONAL PULMONOLOGY New Consult Note Reason for Consultation: Lung mass CURRENT HOSPITALIZATION: Admit Date: 08/12/2022 [facility] Hospital LOS: 1 day History of Presenting Illness: Sarah Dan is a 71 y.o. 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 Assessment and Plan: Sarah Dan is a 71 y.o. female with tobacco [...] Barba MD PGY 7 Interventional Pulmonology Fellow [facility] Pager: [phone] Associated attestation - Liberty Escalera MBB[facility] - [...] tissue biopsy next week Liberty Escalera MD Parts Designer Division of pulmonary, critical care and sleep medicine Department of Internal Medicine [facility] Work Phone: 08-13-2022 Note Formatting of this n ote might be different from the original. Problem: Patient Care Overview Goal: Plan of Care Review Outcome: Ongoing Goal: Individualization & Mutuality Outcome: Ongoing Goal: Discharge Needs Assessment Outcome: Ongoing Goal: Interdisciplinary Rounds/Family Conf Outcome: Ongoing [facility] 08-12-2022 Note Formatting of this n ote might be different from the original. On admission to [facility], from PACU a dual RN initial assessment of skin condition was performed by Kellie Grimm RN and Sondra MORAN. Skin Assessment: On assessment, patient has no wounds noted. Patient has posterior neck incision COMPENSATOR WORKER with sutures and bolster in place in mouth. Clem Score: 19 LDA Added:none Kellie Grimm RN [facility] 08-12-2022 Nurse Surgical operation note 1517- Patient transported to room via gurney with side rails up x 2 with HOB at 30 degrees with Tommy UNIT LEADER. Patient's updated and provided room number per SV[facility] desk. [facility] 08-12-2022 Nurse Note 1517- Patient transported to room via gurney with side rails up x 2 with HOB at 30 degrees with Tommy UNIT LEADER. Patient's updated and provided room number per SVL desk. Family notified of procedure start time at 1050 Hand-off report sent to PACU charge nurse at 1158 PACU given 15 minute notice of arrival at 1213 Patient extubated and transported to PACU with anesthesia at bedside, side rails up x2. documented in this encounter [facility] 08-12-2022 Note Formatting of this n ote is different from the original. Sarah Dan ([id number]) PRE OPERATIVE DIAGNOSIS Squamous cell carcinoma of [...] carcinoma SURGEON Surgeon(s) and Role: * Etienne Singh MD - Primary ANESTHESIOLOGIST Anesthesiologist: Filiberto Ames MD Guitar Maker Assisting: Aj Miller MD SURGICAL STAFF Sales Support Consultant: Joo Bell RN Relief Sales Support Consultant: Yulia Barnett RN Relief Scrub: Yulia Barnett RN Scrub Person: Milagros Ballard RN; Shanique Schumacher; Dimitri Villanueva, LUISA Resident Assisting: Joo Matias MD COMPLICATIONS None ESTIMATED BLOOD LOSS 20 mL SPECIMENS ID Type Source Tests Collected by Time Destination 1 : Left floor of mouth excision, stitch = medial Permanent SURG PATH SURG PATH REQUEST Etienne Singh MD 08/12/2022 1139 2 : Lateral margin Frozen SURG PATH SURG PATH REQUEST Etienne Singh MD 08/12/2022 1143 3 : Superior margin Frozen SURG PATH SURG PATH REQUEST Etienne Singh MD 08/12/2022 1143 4 : Inferior margin Frozen SURG PATH SURG PATH REQUEST Etienne Singh MD 08/12/2022 1143 5 : Medial margin Frozen SURG PATH SURG PATH REQUEST Etienne Singh MD 08/12/2022 1143 6 : Deep margin Frozen SURG PATH SURG PATH REQUEST Etienne Singh MD 08/12/2022 1144 Joo Matias MD August 12, 2022 1:02 PM [facility] 08-12-2022 Note Formatting of this n ote might be different from the original. Assessment: POD 0 Surgeon: Samantha Diagnosis: FOM SCCis Procedure: DLE, FOM excision, bilateral sialodochoplasty Plan Airway: [place] Diet: soft diet x 2 weeks Wound (xander/sutures): bolster FOM (discharge with removal at 2 week follow up - if not tolerating can discuss removal prior to DC with Se) Antibiotics/Cultures: peridex x 2 weeks Labs (Ca, PTH, TSH, Free T4): per protocol Anticoagulation: Std DVT ppx PT/OT/PINKING MACHINE OPERATOR: PT/OT Consults: IP for pulmonary biopsy Pertinent PMHx: HTN, AAA s/p repair 2020, gout, breast cancer, RA Other: Left lower lobe mass with extension to hilum, TB rec IP biopsy Daily Plan: - IP Consult for inpatient biopsy Path: Dispo: pending IP biopsy Follow ups: Seim 2 weeks for bolster removal [facility] 08-12-2022 Nurse Surgical operation note Family notified of procedure start time at 1050 Hand-off report sent to PACU charge nurse at 1158 PACU given 15 minute notice of arrival at 1213 Patient extubated and transported to PACU with anesthesia at bedside, side rails up x2. [facility] 08-12-2022 Note Formatting of this n ote might be different from the original. Pt denies history of chemo and radiation. Pt denies metal or foreign objects in body. Denies history of seizures. [facility] 08-12-2022 Note Formatting of this n ote is different from the original. Operative Report DATE OF SERVICE: 08/12/2022 PATIENT: Sarah Dan PREOPERATIVE DIAGNOSIS: 1. Remote smoking history 2. [...] reconstruction, 2 x 1.5 cm SURGEON: Etienne Singh MD BUSINESS ARCHITECT: Joo Matias MD ANESTHESIA: General endotracheal. ESTIMATED BLOOD LOSS: 20 mL. COMPLICATIONS: None CONDITION: Stable to PACU. INTRAOPERATIVE FINDINGS: 1. Left ventral tongue/floor of mouth lesion, excised 2. Frozen margins negative for carcinoma SPECIMEN: ID Type Source Tests Collected by Time Destination 1 : Left floor of mouth excision, stitch = medial Permanent SURG PATH SURG PATH REQUEST Etienne Singh MD 08/12/2022 1139 2 : Lateral margin Frozen SURG PATH SURG PATH REQUEST Etienne Singh MD 08/12/2022 1143 3 : Superior margin Frozen SURG PATH SURG PATH REQUEST Etienne Singh MD 08/12/2022 1143 4 : Inferior margin Frozen SURG PATH SURG PATH REQUEST Etienne Singh MD 08/12/2022 1143 5 : Medial margin Frozen SURG PATH SURG PATH REQUEST Etienne Singh MD 08/12/2022 1143 6 : Deep margin Frozen SURG PATH SURG PATH REQUEST Etienne Singh MD 08/12/2022 1144 INDICATIONS AND CONSENT: Sarah Dan is a 71 y.o. who presented to [...] of mouth/ventral tongue lesion involving the left Tuscola's ducts, 13 mm x 15 mm. Lesion [...] palpation of the submandibular gland. The left Tuscola's duct was probed with a salivary probe. [...] to the PACU in stable condition. Dr. Singh was present and participated through the entirety of the procedure. Associated attestation - Etienne Singh MD - 08/12/2022 1:51 PM EDT ATTENDING PHYSICIAN ATTESTATION: I was physically present and actively involved throughout the entirety of this procedure as stated below. 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 I have reviewed Sarah Dan's medical, surgical and other pertinent history, and I have updated the medication and allergy information in the computerized patient record. I have examined the patient, reviewed the previous H&P completed on date (07/21/22) and there are no changes. Today's surgical history and physical update was completed by Joo Matias MD, 08/12/2022, 7:07 AM. 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 I have reviewed Sarah Dan's medical, surgical and other pertinent history, and I have updated the medication and allergy information in the computerized patient record. I have examined the patient, reviewed the previous H&P completed on date (5/9/23) and there are no changes. Today's surgical history and physical update was completed by Joo Matias MD, 08/12/2022, 7:07 AM. documented in this encounter [facility] 08-05-2022 Note Request received for second opinion consultation by Shante Garcia PA-C. Please review outside slides for SCC of floor of mouth. Preoperative Diagnosis: Swelling and pain. [facility] Comment on above: Performed By: #### C HM7 #### [facility] (DEFAULT) [address] [place] [address] 05-07-2022 History of Present illness Narrative Images from the original note were not included. May 07, 2022 Sarah Stern Mayur 1950 [id number] [place]: Cookie is here for her yearly checkup. She is now 7 years out from a left partial mastectomy for DCIS. Because of its small size she did not require radiation. She took Arimidex for 5 years and then it was discontinued. She is on surveillance only. Her only real issue is her ongoing problems with rheumatoid arthritis, which does cause her quite a bit of discomfort. She does see a spice miller and is on multiple treatments, none of which seem to help her very much. Other than her joint achiness she has no other bony symptoms. She also denies any new neurologic, pulmonary, or GI symptoms. She feels nothing new or different in either breast. Her last mammogram was 04/30/2022. PAST MEDICAL HISTORY PAST MEDICAL HISTORY Diagnosis Date Essential hypertension Gout Mixed hyperlipidemia Rheumatoid arthritis (HCC) PAST SURGICAL HISTORY PAST SURGICAL HISTORY Procedure Laterality Date MASTECTOMY, PARTIAL Left TOTAL ABDOM HYSTERECTOMY Ovaries remain FAMILY HISTORY FAMILY HISTORY Problem Relation Age of Onset Breast Cancer Mother Hypertension Other SOCIAL HISTORY Social History Tobacco Use Smoking status: Every Day Types: Cigarettes Substance Use Topics Alcohol use: Yes Comment: Social use Drug use: Never MEDICATIONS Current Outpatient Medications Medication Sig Dispense Refill leucovorin (LEUCOVORIN) 15 mg tablet Take 1 tablet by mouth one time a week. gabapentin (NEURONTIN) 300 mg capsule Take 2 capsules by mouth once daily. hydrOXYchloroQUINE (PLAQUENIL) 200 mg tablet Take 1 tablet by mouth once daily. losartan (COZAAR) 100 mg tablet Take 1 tablet by mouth once daily. methotrexate 2.5 mg tablet Take 1 tablet by mouth one time a week. metoprolol succinate ER (TOPROL XL) 50 mg 24 hr tablet Take 1 tablet by mouth once daily. allopurinol (ZYLOPRIM) 300 mg tablet atorvastatin (LIPITOR) 40 mg tablet folic acid 1 mg tablet 2 mg once daily. No current facility-administered medications for this visit. ALLERGIES Patient has no known allergies. REVIEW OF SYSTEMS: GENERAL: No fever/chills. No unusual weight change. EYES: No blurring or diplopia. No drainage. No unusual vision loss. EARS: No earache. No drainage. No hearing loss. NOSE: No acute congestion or drainage. THROAT: No sore throat. No difficulty swallowing. CARDIAC: No chest pains or palpitations. No peripheral edema. PULMONARY: No cough, wheezing, shortness of breath, or hemoptysis. BREAST: See history. No new masses, redness or dimpling of the skin, or nipple discharge. GASTROINTESTINAL: No nausea or vomiting. No diarrhea. No constipation. No change in bowel habits. No abdominal pain. No blood in stool. No dark stool. No jaundice. GENITOURINARY: No dysuria or increased urinary frequency. No blood in the urine. No unusual vaginal bleeding. MUSCULOSKELETAL: See history. Complains of significant joint pain from her rheumatoid arthritis. No muscle weakness. No long bone pain. NEUROLOGIC: No transient paralysis. No weakness. No paresthesias. No seizures. No syncope. HEMATOLOGIC/LYMPHATIC: No abnormal bruising or bleeding. No enlarged nodes. PSYCH: No anxiety or depression. PHYSICAL EXAM: BP 137/66 Pulse 83 Resp 14 Wt 159 lb 14.4 oz (72.5kg) GENERAL: Alert and oriented. No acute distress. SKIN: Warm and dry. No jaundice. HEAD: Normocephalic and atraumatic. EYES: Pupils equal, round, and reactive to light. Extraocular movements intact. No scleral icterus. PHARYNX: Mask not removed. NECK: No cervical or supraclavicular lymphadenopathy. Thyroid palpably normal. Carotids 2+ bilaterally without bruits. Supple neck. HEART: Normal sinus rhythm without gallop or murmur. LUNGS: Full and clear bilaterally with no rales, wheezes, or rhonchi. BREASTS: She has changes on the left from her prior surgery. There are no focal dominant masses palpable on either side. There is no nipple discharge. There is no axillary or supraclavicular lymphadenopathy. ABDOMEN: Soft and non tender. No distention. Normal bowel sounds. No mass or organomegaly. EXTREMITIES: No cyanosis or edema. NEUROLOGIC: Cranial nerves II-XII grossly intact. Grossly intact motor and sensory exam. IMPRESSION: (D05.12) Ductal carcinoma in situ (DCIS) of left breast (primary encounter diagnosis) (Z17.0) Estrogen receptor positive status (ER+) (Z85.3) Personal history of malignant neoplasm of breast PLAN: I will see her back in 1 year. We will arrange for her next mammogram to be done in mid April 2023. Roxanne Godfrey MD documented in this encounter [facility] Evaluation note Diagnosis Ductal carcinoma in situ (DCIS) of left breast- Primary Estrogen receptor positive status (ER+) Estrogen receptor positive status [ER+] Personal history of malignant neoplasm of breast [facility] Diagnosis Oral cancer- Primary Malignant neoplasm of mouth, unspecified site Squamous cell carcinoma of floor of mouth Malignant neoplasm of floor of mouth, part unspecified Oral cancer Malignant neoplasm of mouth, unspecified site [facility] Diagnosis Mass of left lung Squamous cell carcinoma of floor of mouth Malignant neoplasm of floor of mouth, part unspecified Non-small cell cancer of left lung [facility] Diagnosis 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- Primary [facility] Diagnosis Mass of left lung Squamous cell carcinoma of floor of mouth Malignant neoplasm of floor of mouth, part unspecified [facility] Diagnosis Head and neck cancer- Primary Malignant neoplasm of head, face, and neck [facility] Diagnosis 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 receptor positive status (ER+) Estrogen receptor positive status [ER+] Personal history of malignant neoplasm of breast [facility] Diagnosis Ductal carcinoma in situ (DCIS) of left breast- Primary Estrogen receptor positive status (ER+) Estrogen receptor positive status [ER+] Personal history of malignant neoplasm of breast [facility] Diagnosis 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- Primary [facility] Diagnostic Procedure Only (Routine) - Authorized Specialty Diagnoses / Procedures Referred By Contac t Referred To Contact [facility] Diagnoses 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 receptor positive status (ER+) Personal history of malignant neoplasm of breast Procedures SERA SCREENING SCREENING MAMMOGRAPHY BI 2-VIEW BREAST INC Roxanne Carmona MD [address] [place] [address] [facility] [address] [place] [address] Referral ID Status Reason Start Date Expiration Date Visits Requested Visits Authorized [id number] Authorized Auto-Generat ed Referral 05/01/2023 06/03/2023 1 1 [facility] for referral (narrative)* Diagnostic Procedure Only (Routine) - Closed Specialty Diagnoses / Procedures [facility] Referred To Contact [facility] Diagnoses 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 receptor positive status (ER+) Personal history of malignant neoplasm of breast Procedures SERA SCREENING SCREENING MAMMOGRAPHY BI 2-VIEW BREAST INC Roxanne Carmona MD [address] [place] [address] [facility] [address] [place] [address] Referral ID Status Reason Start Date Expiration Date V isits Requested Visits Authorized [id number] Closed Auto-Generate d Referral 05/01/2023 06/03/2023 1 1 [facility] for referral (narrative)* Diagnostic Procedure Only (Routine) - Authorized Specialty Diagnoses / Procedures [facility] Referred To Contact [facility] Diagnoses 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 receptor positive status (ER+) Personal history of malignant neoplasm of breast Procedures SERA SCREENING SCREENING MAMMOGRAPHY BI 2-VIEW BREAST INC Roxanne Carmona MD [address] [place] [address] [facility] [address] [place] [address] Referral ID Status Reason Start Date Expiration Date Visits Requested Visits Authorized [id number] Authorized Auto-Generat ed Referral 05/06/2024 06/09/2024 1 1 [facility] for visit Narrative* Diagnostic Procedure Only (Routine) - Closed Specialty Diagnoses / Procedures Referred By Ashley salinas Referred To Contact [facility] Diagnoses 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 receptor positive status (ER+) Personal history of malignant neoplasm of breast Procedures SERA SCREENING SCREENING MAMMOGRAPHY BI 2-VIEW BREAST INC Roxanne Carmona MD [address] [place] [address] [facility] [address] [place] [address] Referral ID Status Reason Start Date Expiration Date V isits Requested Visits Authorized [id number] Closed Auto-Generate d Referral 05/01/2023 06/03/2023 1 1 [facility] Summary Purpose Family History No Family History Records FoundNo Family History Records FoundNo Family History Records FoundNo Family History Records FoundNo Family History Records Found Advance Directives No Advanced Directives Records FoundLatest Code Status on File Code Status Date Activated Date Inactivated Comments Full Code 08/12/2022 7:38 AM Documents on File Type Date Recorded 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 Advance Directives/Living Will 08/24/2022 Documents on File Type Date Recorded 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 Advance Directives/Living Will 08/24/2022 Latest Code Status on File Code Status Date Activated Date Inactivated Comments Full Code 08/12/2022 7:38 AM Reason for Referral Specialty Diagnoses / Procedures Referred By Ashley salinas Referred To Contact Procedures NUC PET HEAD/NECK CA CHG NUC THERAPY HYPERTHYROID SUBSEQUENT Payton Elder, PAC [address] [place] [address] Referral ID Status Reason Start Date Expiration Date V isits Requested Visits Authorized [id number] New Request 08/12/2022 09/06/2023 1 1 Specialty Diagnoses / Procedures Referred By Contac t Referred To Contact Procedures PLATELET MONITORING PER PROTOCOL Etienne Singh MD [address] [place] [address] Referral ID Status Reason Start Date Expiration Date V isits Requested Visits Authorized [id number] New Request 08/12/2022 09/06/2023 1 1 Specialty Diagnoses / Procedures Referred By Contac t Referred To Contact Procedures DVT/VTE RISK ASSESSMENT Etienne Singh MD [address] [place] [address] Referral ID Status Reason Start Date Expiration Date V isits Requested Visits Authorized [id number] New Request 08/12/2022 09/06/2023 1 1 Referral ID Status Reason Start Date Expiration Date V isits Requested Visits Authorized [id number] New Request 08/12/2022 09/06/2023 1 1 Specialty Diagnoses / Procedures Referred By Contac t Referred To Contact Diagnoses Non-small cell cancer of left lung Procedures MRI BRAIN WITH AND WITHOUT CONTRAST VT MRI BRAIN COMBO Jaelyn Yen, ROOF TRUSS MACHINE TENDER-FOREIGN LANGUAGE STENOGRAPHER [address] [place] [address] Referral ID Status Reason Start Date Expiration Date V isits Requested Visits Authorized [id number] New Request 09/01/2022 09/26/2023 1 1 Specialty Diagnoses / Procedures Referred By Contac t Referred To Contact Diagnoses Mass of left lung Squamous cell carcinoma of floor of mouth Procedures NUC PET LUNG CA (NSCLC) CHG NUC THERAPY HYPERTHYROID SUBSEQUENT Yaz Garcia, PAC [address] [place] [address] Referral ID Status Reason Start Date Expiration Date Visits Re quested Visits Authorized [id number] Closed 08/24/2022 09/18/2023 1 1 Additional Source Comments INFORMATION SOURCE (unrecogn ized section and content) DATE CREATED AUTHOR 09/08/2017 [facility] ([place]) DATE CREATED AUTHOR AUTHOR'S ORGANIZ ATION 06/24/2019 [facility] DATE CREATED AUTHOR AUTHOR'S ORGANIZ ATION 05/05/2021 [facility] DATE CREATED AUTHOR AUTHOR'S ORGANIZ ATION 05/14/2023 [facility] DATE CREATED AUTHOR AUTHOR'S ORGANIZ ATION 06/05/2023 [facility] Source Comments (unrecognize d section and content) In the event this informatio n is protected by the Federal Confidentiality of Alcohol and Drug Abuse Patient Records regulations: The Federal rules restrict any use of the information to criminally investigate or prosecute any alcohol or drug abuse patient.[facility] the event this information is protected by the Federal Confidentiality of Alcohol and Drug Abuse Patient Records regulations: The Federal rules restrict any use of the information to criminally investigate or prosecute any alcohol or drug abuse patient.[facility] the event this information is protected by the Federal Confidentiality of Alcohol and Drug Abuse Patient Records regulations: The Federal rules restrict any use of the information to criminally investigate or prosecute any alcohol or drug abuse patient.[facility] the event this information is protected by the Federal Confidentiality of Alcohol and Drug Abuse Patient Records regulations: The Federal rules restrict any use of the information to criminally investigate or prosecute any alcohol or drug abuse patient.[facility] the event this information is protected by the Federal Confidentiality of Alcohol and Drug Abuse Patient Records regulations: The Federal rules restrict any use of the information to criminally investigate or prosecute any alcohol or drug abuse patient.[facility] Care Teams (unrecognized sec tion and content) Epidemiology Internship Relationship Specialty Start Date End Date Walter Emanuel Chi PCP - General Gerontology 11/06/16 Epidemiology Internship Relationship Specialty Start Date End Date Walter Emanuel Chi PCP - General Gerontology 11/06/16 Epidemiology Internship Relationship Specialty Start Date End Date Sharlene Emanuel MD [address] [address] PCP - General Internal Medicine 07/21/22 Ck Pringle MB/DEMETRICE [address] [place], [place] [phone] Oncologist Hematology 07/17/22 Danita Millan, RN Registered Nurse 07/17/22 Bertin Valentin MD [address] [place] [address] Cardiovascular Disease 08/04/22 Epidemiology Internship Relationship Specialty Start Date End Date Sharlene Emanuel MD [address] [place] [address] PCP - General Internal Medicine 07/21/22 Ck Pringle MB/CHB [address] [place] [address] Oncologist Hematology 07/17/22 Danita Millan RN Registered Nurse 07/17/22 Bertin Valentin MD [address] [place] [address] Cardiovascular Disease 08/04/22 Epidemiology Internship Relationship Specialty Start Date End Date Sharlene Emanuel MD [address] [place] [address] PCP - General Internal Medicine 07/21/22 Ck Pringle MB/CHB [address] [place] [address] Oncologist Hematology 07/17/22 Danita Millan, RN Registered Nurse 07/17/22 Bertin Valentin MD [address] [place] [address] Cardiovascular Disease 08/04/22 Epidemiology Internship Relationship Specialty Start Date End Date Sharlene Emanuel MD [address] [place] [address] PCP - General Internal Medicine 07/21/22 Ck Pringle MB/[facility] [address] [place] [address] Oncologist Hematology 07/17/22 Danita Millan, RN Registered Nurse 07/17/22 Bertin Valentin MD [address] [place] [phone] Cardiovascular Disease 08/04/22 Epidemiology Internship Relationship Specialty Start Date End Date Sharlene Emanuel MD [address] [place] [phone] PCP - General Internal Medicine 07/21/22 Ck Pringle MB/CHB [address] [place] [address] Oncologist Hematology 07/17/22 Danita Millan, RN Registered Nurse 07/17/22 Bertin Valentin MD [address] [place] [phone] Cardiovascular Disease 08/04/22 Epidemiology Internship Relationship Specialty Start Date End Date Walter Emanuel Chi PCP - General Gerontology 11/06/16 Epidemiology Internship Relationship Specialty Start Date End Date Walter Emanuel Chi PCP - General Gerontology 11/06/16 Epidemiology Internship Relationship Specialty Start Date End Date Walter Emanuel Chi PCP - General Gerontology 11/06/16 Epidemiology Internship Relationship Specialty Start Date End Date Sharlene Emanuel MD [address] [place] [address] PCP - General Internal Medicine 07/21/22 Ck Pringle MD [address] [place] [address] Oncologist Hematology 07/17/22 Bertin Valentin MD [address] [place] [phone] Cardiovascular Disease 08/04/22 Nicho Alexander DO [address] [facility] [address] [place] [address] Radiation Oncologist Radiation Oncology 04/06/23 Reason for Visit (unrecogniz ed section and content) Reason Comments Breast Cancer Specialty Diagnoses / Procedures Referred By Contac t Referred To Contact Diagnoses 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] Procedures VT LARYNGOSCOPY,DIRECT,DIAGNOSTI C VT ESOPHAGOSCOPY FLEXIBLE TRANSORAL DIAGNOSTIC VT EXCIS FLOOR MOUTH LESION VT REPAIR SALIVARY DUCT SIMPLE VT SPLIT GRFT,HEAD,FAC,HAND,FEET <100SQCM LARYNGOSCOPY DIRECT DIAGNOSTIC ESOPHAGOSCOPY DIAGNOSTIC EXCISION LESION FLOOR OF MOUTH SIALODOCHOPLASTY GRAFT SKIN SPLIT THICKNESS EAR EYELID FACE MOUTH ORBIT (STSG) Etienne Singh MD [address] [place] [address] [facility] [address] [place] [address] Referral ID Status Reason Start Date Expiration Date Visits Re quested Visits Authorized [id number] 1 1 Reason Comments 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; recent karin jaya in July for excision of mouth lesion Specialty Diagnoses / Procedures Referred By Ashley salinas Referred To Contact Thoracic Surgery Diagnoses Mass of left lung Squamous cell carcinoma of floor of mouth Yaz Garcia, PAC [address] [place] [address] Referral ID Status Reason Start Date Expiration Date V isits Requested Visits Authorized [id number] New Request 08/24/2022 09/18/2023 1 1 Reason Comments Follow-up Specialty Diagnoses / Procedures Referred By Ashley salinas Referred To Contact Diagnoses Mass of left lung Squamous cell carcinoma of floor of mouth Procedures NUC PET LUNG CA (NSCLC) CHG NUC THERAPY HYPERTHYROID SUBSEQUENT Yaz Garcia, PAC [address] [place] [address] Referral ID Status Reason Start Date Expiration Date Visits Re quested Visits Authorized [id number] Closed 08/24/2022 09/18/2023 1 1 Scheduled Active and Recently Administ ered Medications (unrecognized section and content) Medication Order 08/11/2022 08/12/2022 08/13/2022 Acetaminophen (TYLENOL) tablet 975 mg (COMPLETED) 975 mg, Oral, ONCE, 1 dose, On Wed08/12/22 at 0745, Administer 2 hours prior to surgery., Pre-op/Pre-Proc 0915 (Given - Provider: Isamar Mukherjee RN - Comment: pre-op) Allopurinol (ZYLOPRIM) tablet 300 mg 300 mg, Oral, DAILY EVERY MORNING, First dose on Viktoria 08/13/22 at 0900, Until Discontinued 1031 (Given - Provid er: Kristy Moreno RN) Ampicillin-Sulbactam Sodium (UNASYN) 3 g in sodium chloride 0.9% (MB PLUS) 100 mL (total volume) IVPB (CANCELED) 3 g, Intravenous, Administer over 30 Minutes, INTRA-OP ONCE, Starting on Wed08/12/22 at 0738, Until Wed08/12/22 at 1525, Contains a penicillin., Intra-op/Intra-Proc 1040 ($$New Bag$$ - Provider: Aj Miller MD) Atorvastatin (LIPITOR) tablet 40 mg 40 mg, Oral, DAILY AT BEDTIME, First dose on Wed08/12/22 at 2100, Until Discontinued 2019 (Given - Provider: Jer Cuevas, LUISA) chlorhexidine (PERIDEX) 0.12 % oral solution 15 mL 15 mL, Oral, 4 TIMES DAILY, First dose on Wed08/12/22 at 1700, Until Discontinued, Swish/spit, Post-op/Post-Proc 1607 (Given - Provider: Kellie Grimm, LUISA)2018 (Given - Provider: Jer Cuevas, RN) 1032 (Given - Provider: Kristy Moreno, LUISA)1505 (Given - Provider: Kristy Moreno RN)1700 (Canceled Entry - Provider: System Discharge - Comment: Automatically canceled at discontinue of medication order) Docusate (COLACE) capsule 100 mg(Linked Group 1) 100 mg, Oral, 2 TIMES DAILY, First dose on Wed08/12/22 at 1700, Until Discontinued, Hold for diarrhea or 2 stools in one day., Post-op/Post-Proc 1607 (Given - Provider: Kellie Grimm RN) 1038 (See Alternative - Provider: Kristy Moreno, LUISA)1700 (Canceled Entry - Provider: System Discharge - Comment: Automatically canceled at discontinue of medication order) docusate (COLACE) oral liquid 100 mg(Linked Group 1) 100 mg, Per NG tube, 2 TIMES DAILY, First dose on Wed08/12/22 at 1700, Until Discontinued, Hold for diarrhea or 2 stools in one day. , Post-op/Post-Proc 1607 (See Alternative - Provider: Kellie Grimm RN) 1038 (Not Given - Provider: Kristy Moreno RN - Reason: Patient/family refused)1700 (Canceled Entry - Provider: System Discharge - Comment: Automatically canceled at discontinue of medication order) Enoxaparin Sodium (LOVENOX) injection 40 mg 40 mg, Subcutaneous, EVERY 24 HOURS, First dose on Wed08/12/22 at 1545, Until Discontinued, , Indications: DVT/PE prophylaxis, Post-op/Post-Proc 1607 (Given - Provider: Kellie Grimm RN) 1545 (Canceled Entry - Provider: System Discharge - Comment: Automatically canceled at discontinue of medication order) Folic acid (FOLVITE) tablet 2 mg 2 mg, Oral, DAILY EVERY MORNING, First dose on Wed08/12/22 at 1300, Until Discontinued 1607 (Not Given - Provider: Kellie Grimm RN - Reason: Patient/family refused) 1036 (Given - Provider: Kristy Moreno RN) Gabapentin (NEURONTIN) capsule 300 mg 300 mg, Oral, DAILY, First dose (after last modification) on Wed08/12/22 at 2115, Until Discontinued 2119 (Given - Provider: Jer Cuevas RN) 1032 (Given - Provider: Kristy Moreno RN) Heparin injection 5,000 Units (COMPLETED) 5,000 Units, Subcutaneous, ONCE, 1 dose, On Wed08/12/22 at 0745, Pre-op/Pre-Proc 0915 (Given - Provider: Isamar Mukherjee RN) Hydroxychloroquine (PLAQUENIL) tablet 100 mg 100 mg, Oral, DAILY AT BEDTIME, First dose on Wed08/12/22 at 2100, Until Discontinued 2019 (Given - Provider: Jer Cuevas RN) Hydroxychloroquine (PLAQUENIL) tablet 200 mg 200 mg, Oral, DAILY, First dose on Wed08/13/22 at 0900, Until Discontinued, 1032 (Given - Provid er: Kristy Moreno RN) Ipratropium-albuterol (DUONEB) 0.5-2.5 (3) MG/3ML nebulizer solution 3 mL (COMPLETED) 3 mL, Nebulization, ONCE, 1 dose, On Wed08/12/22 at 0845, Pre-op/Pre-Proc 0848 (Given - Provider: Isamar Mukherjee RN) leucovorin (WELLCOVORIN) tablet; dose = 15 mg 15 mg, Oral, EVERY 7 DAYS, First dose (after last modification) on Wed08/13/22 at 0900, Until Discontinued 1038 (Not Given - Provider: Kristy Moreno RN - Reason: Patient/family refused - Comment: day after methotrexate) methotrexate (TREXALL) tablet; dose = 10 mg 10 mg, Oral, WEEKLY, First dose on Wed08/13/22 at 0900, Until Discontinued, Swallow tablet whole; do not spilt, crush, or chew. Contact pharmacy if alternative route needed. 1031 (Given - Provid er: Kristy Moreno RN) methotrexate (TREXALL) tablet; dose = 10 mg 10 mg, Oral, CUSTOM FREQUENCY (Once per day on Wed), First dose on Wed08/13/22 at 2100, Until Discontinued, Swallow tablet whole; do not spilt, crush, or chew. Contact pharmacy if alternative route needed. Metoprolol succinate (TOPROL-XL) tablet XL 50 mg 50 mg, Oral, DAILY EVERY MORNING, First dose on Wed08/13/22 at 0900, Until Discontinued, Slow release product. Do not crush. Extended release can be cut in half. 1032 (Given - Provid er: Kristy Moreno RN) Senna (SENOKOT) tablet 8.6 mg(Linked Group 2) 8.6 mg, Oral, DAILY, First dose on Wed08/13/22 at 0900, Until Discontinued, Post-op/Post-Proc 1038 (Not Given - Provider: Kristy Moreno RN - Reason: Patient/family refused) Senna (SENOKOT) tablet 8.6 mg(Linked Group 2) 8.6 mg, Per NG tube, DAILY, First dose on Wed08/13/22 at 0900, Until Discontinued, Post-op/Post-Proc 1038 (See Alternativ e - Provider: Kristy Moreno RN) Continuous Medication Order 08/11/2022 08/12/2022 08/13/2022 Lactated ringers IV solution (CANCELED) Intravenous, at 50 mL/hr, CONTINUOUS, Starting on Wed08/12/22 at 0745, Until Wed08/12/22 at 1525, Pre-op/Pre-Proc 0807 ($$New Bag$$ - Provider: Isamar Mukherjee RN) Lactated ringers IV solution (CANCELED) Intravenous, at 75 mL/hr, CONTINUOUS, Starting on Wed08/12/22 at 1315, Until Wed08/13/22 at 0852, Please discontinue once tolerating adequate [...] in 24 hours., Post-op/Post-Proc bacitracin-polymyxin b (POLYSPORIN) [id number] UNIT/GM ointment (CANCELED) NEEDED, Starting on Wed08/12/22 at 1229, Until Wed08/12/22 at 1247, Intra-op/Intra-Proc 1229 (Given - Provider: Etienne Singh MD) hydrALAZINE (APRESOLINE) injection 10 mg 10 [...] for HR < 60 BPM., Post-op/Post-Proc Lidocaine-epinephrine 1%-1:[id number] injection (CANCELED) NEEDED, Starting on Wed08/12/22 at 1056, Until Wed08/12/22 at 1247, Intra-op/Intra-Proc 1056 (Given - Provider: Etienne Singh MD) Melatonin tablet 6 mg 6 mg, [...] PRN used in previous 12 hours., Post-op/Post-Proc 160 (See Alternative - Provider: Kellie [...] Cuevas RN)0703 (See Alternative - Provider: Jer Cuevas, LUISA) oxyCODONE (ROXICODONE) oral solution 5 mg(Linked Group 5) 5 mg, Oral, EVERY 4 HOURS NEEDED, Starting on Wed08/12/22 at 1533, Until Viktoria 08/13/22 at 1833, Moderate Pain, Use as initial dose. Higher dose may be administered if lower dose was previously documented as ineffective and did not result in adverse effects (RR<10, decrease in level of consciousness)., Post-op/Post-Proc 1606 (See Alternative - Provider: Kellie Grimm RN)2018 (See Alternative - Provider: Jer Cuevas RN) 33 (See Alternative - Provider: Jer Cuevas RN)07 (See Alternative - Provider: Jer Cuevas RN) [...] (RR<10, decrease in level of consciousness)., Post-op/Post-Proc 1606 (See Alternative - Provider: Kellie Grimm RN)2018 (See Alternative - Provider: Jer Cuevas RN) 33 (See Alternative - Provider: Jer Cuevas RN)07 (See Alternative - Provider: Jer Cuevas RN) [...] (RR<10, decrease in level of consciousness)., Post-op/Post-Proc 1606 (Given - Provider: Kellie Grimm RN)2018 (Given - Provider: Jer Cuevas RN) 33 (Given - Provider: Jer Cuevas RN)07 (Given - Provider: Jer Cuevas RN) oxyCODONE [...] Post-op/Post-Proc 1607 (See Alternative - Provider: Kellie Grimm, RN)2019 (See Alternative - Provider: Jer Cuevas, LUISA) 0034 (See Alternative - Provider: Jer Cuevas, RN)0703 (See Alternative - Provider: Jer Cuevas, RN) Polyethylene glycol (MIRALAX) packet 17 g(Linked Group 6) 17 g, Oral, DAILY NEEDED, Starting on Wed08/12/22 at 1533, Until Viktoria 08/13/22 at 1833, Constipation If No Bowel Movement in 48 Hours, Post-op/Post-Proc Polyethylene glycol (MIRALAX) packet 17 g(Linked Group 6) 17 g, Per NG tube, DAILY NEEDED, Starting on Wed08/12/22 at 1533, Until Ivktoria 08/13/22 at 1833, Constipation If No Bowel [...] 1247, Intra-op/Intra-Proc 1230 (Given - Provider: Etienne Singh MD) Sodium chloride 0.9% IV solution 250 mL Intravenous, at 20 mL/hr, NEEDED, Starting on Wed08/12/22 at 1533, Until Wed08/13/22 at 1833, Carrier Fluid - See Admin. [...] 1533, Until Viktoria 6 at 1833, Moderate Pain
Use as initial [...] 1533, Until Viktoria 6 at 1833, Moderate Pain
Higher dose may [...] Wed08/12/22 at 1533, Until Wed08/13/22 at 1833, Moderate Pain
Higher dose may [...] Wed08/12/22 at 1533, Until Wed08/13/22 at 1833, Constipation If No Bowel Movement in 48 Hours, Post-op/Post-Proc Or Polyethylene glycol (MIRALAX) packet 17 gJump to med 17 g, Per NG tube, DAILY NEEDED, Starting on Wed08/12/22 at 1533, Until Wed08/13/22 at 1833, Constipation If No Bowel Movement [...] BE BASED ON THE PRIMARY CLINICAL RECORDS. [facility]. provides no warranty or guarantee of the accuracy or completeness of information in this document.
--- NOTE | 2024-01-05 06:40 | PRE.ANES_ITS ---
ASA Classification* ASA Classification ASA Classification: 3 Assessment & Plan Anesthesia* Anesthesia Assessment Anesthesia Assessment: Discussed sedation and/or anesthesia options, risks, benefits, and alternatives with patient/parents/legal guardian/POA. Questions invited. The patient/parents/legal guardian/POA seems to understand and agrees to proceed with anesthesia plan. Reviewed the physical assessment, medical history, allergy history and patient home medications list prior to surgery/procedure/anesthetic and documented any changes. Performed airway and anesthesia risk assessments. Anesthesia Type Anesthesia Type: MAC Anesthesia Focused Assessment* Airway Assessment Mouth opens: >3 cm Mallampati Score: II Focused Labs Anesthesia Preop lab: CBC WBC 9.1 K/mm3 (4.4-11.0) 12/27/23 10:07 RBC 3.63 M/mm3 (4.2-5.4) L 12/27/23 10:07 Hgb 10.1 g/dL (12.0-15.0) L 12/27/23 10:07 Hct 34.2 % (37-47) L 12/27/23 10:07 Plt Count 436 K/mm3 (150-450) 12/27/23 10:07 CHEMISTRY Potassium 4.6 mmol/L (3.5-5.1) 12/27/23 10:07 Sodium 139 mmol/L (136-145) 12/27/23 10:07 Magnesium 2.2 mg/dL (1.6-2.6) 06/16/23 12:40 Phosphorus 5.4 mg/dL (2.5-4.9) H 06/16/23 12:40 BUN 18 mg/dL (7-18) 12/27/23 10:07 Creatinine 0.89 mg/dL (0.55-1.02) 12/27/23 10:07 Glucose 106 mg/dL (74-106) 12/27/23 10:07 POC Glucose 98 mg/dL (74-106) 07/02/23 13:58 TSH 3.08 uIU/mL (0.358-3.74) 10/04/23 16:25 COAG PT 45.0 SECONDS (11.7-14.9) H 12/16/23 12:36 INR 3.9 H* 10/13/23 14:14 Pre-Assessment Diagnosis/Proposed Procedure Planned Operative Procedure(s): LEFT VASCULAR PORT INSERTION Anesthesia History Anesthesia History - optomechanical technician: Anesthesia History - optomechanical technician Hx Hospitalization Yes: 09/2022 HAD A FALL 01/04/24 14:42 Any Problems With Anesthesia No 01/04/24 14:42 Cholinesterase deficiency No 01/04/24 14:42 You/Your Family Experience No 01/04/24 14:42 fever (hyperthermia) with Relationship Recent Exposure to Contagious No 09/10/23 09:48 Disease Does patient have nerve No 01/04/24 14:42 stimulator Patient instructed to have device shut off --Does patient have Pacemaker or ICD? When Was Last Pacemaker Check QUESTION #4 FULL TEXT: You/Your Family Experience fever (hyperthermia) with Anesthesia Last Oral Intake Last Oral intake: Last Oral Intake NPO since Meds taken in AM with sips of water? Meds patient instructed to take am of surgery PONV PONV - optomechanical technician: PONV - optomechanical technician Female Yes 01/04/24 14:42 HX of Motion Sickness No 01/04/24 14:42 HX of N/V After Surgery No 01/04/24 14:42 Non-Smoker Yes 01/04/24 14:42 Duration of Surgery greater No 01/04/24 14:42 than 60 minutes Number of Risk Factors 2 01/04/24 14:42 PONV Score Moderate Risk 01/04/24 14:42 Height & Weight Height & Weight: Anesthesia: Height & Weight Height 5 ft 3 in 12/29/23 13:58 Respiratory Assessment Respiratory Assessment - optomechanical technician: Respiratory Tract Infection Hx - optomechanical technician Hx Respiratory Tract Infection No 01/04/24 14:42 STOP Sleep Apnea STOP Sleep Apnea - optomechanical technician: STOP Sleep Apnea - optomechanical technician Hx Hypertension Yes: CONTROLLED WITH MEDS 01/04/24 14:42 Hx Sleep Apnea No 01/04/24 14:42 CPAP BIPAP Do you snore loudly (louder No 01/04/24 14:42 than talking or can be heard Do you often feel tired/ No 01/04/24 14:42 fatigued/ sleepy during daytime? Has anyone observed you stop No 01/04/24 14:42 breathing during sleep? STOP Results Negative 01/04/24 14:42 QUESTION #5 FULL TEXT : Do you snore loudly (louder than talking or can be heard through closed doors)? Tobacco Use History Tobacco Use History - optomechanical technician: Tobacco Use History - optomechanical technician Tobacco Use Smoking Status Former smoker 01/04/24 14:42 Hx Tobacco Use No 01/04/24 14:42 Years Smoking Packs Smoked per Day Smoking Cessation Date was Yes - quit smoking within 15 01/04/24 14:42 within the last 15 years years Hx Smoking Cessation Date Hx Smoking Cessation No 01/04/24 14:42 Counseling Hematologic Medial History Hematologic Hx - optomechanical technician: Hematologic Medical Hx - documentation spec Hx of Blood Transfusion No 01/04/24 14:42 Hx of Transfusion in last 3 No 01/04/24 14:42 Months Date of Last Transfusion (if within last 3 months) Ever experience any problems No 01/04/24 14:42 with transfusion(s)? Specify any problems Hx of Preganancy in last 3 No 01/04/24 14:42 Months Nurse Filling Out Transfusion DSCHRIBER 01/04/24 14:42 & Questions: Date: 01/04/24 01/04/24 14:42 Time: 14:44 01/04/24 14:42 Patient unable to answer at this time (ie. confused, unrespo /Reproduction History /Reproductive History - optomechanical technician: /Reproductive Hx- optomechanical technician Hx Now No 01/04/24 14:42 Gestational Age (in weeks): EDC: Hx Hx Para Hx Section SAB No 01/04/24 14:42 Active Medications Active Medications: Current Medications Generic Name Dose Route Start Last Admin Trade Name Freq PRN Reason Stop Dose Admin Cefazolin Sodium 2 gm/ N/A 20 mls @ 400 mls/hr 01/05/24 07:30 IV 01/05/24 07:32 PREOP ONE PFSH Medical History Lung cancer History of atrial fibrillation Post-menopausal Ambulates with cane Low iron Injury of head and neck Closed fracture of left proximal humerus Carotid stenosis CVA (cerebral vascular accident) Weakness UTI (urinary tract infection) 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) use of anticoagulants Hypoxia Anemia Prerenal azotemia Oral candidiasis Encounter for education 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 receptor positive status (ER+) Ductal carcinoma in situ (DCIS) of left breast Malignant neoplasm of unspecified site of right female breast Nontoxic single thyroid nodule Vitamin D deficiency Wears dentures Cancer Arthritis Former smoker Hypertension History of echocardiogram History of stress test Cardiology follow-up encounter Essential (primary) hypertension Hyperlipidemia Breast cancer Gout Obesity Abdominal aortic aneurysm (AAA) History of breast cancer Home Medications ?Medication ?Instructions ?Recorded ?Last Taken ?Type gabapentin 300 mg capsule 300 mg PO QHS Pain 09/03/22 01/04/24 History allopurinol 100 mg tablet 100 mg PO DAILY Cardiac 02/08/23 01/04/24 History gabapentin 100 mg capsule 100 mg PO DAILY Artheritis Pain 06/16/23 07/02/23 08:00 History potassium chloride 20 mEq 20 meq PO DAILY #30 tabs 06/19/23 01/04/24 Rx tablet,extended release(part/cryst) (Klor-Con M) ascorbic acid (vitamin C) 500 mg 500 mg PO DAILY SUPPLEMENT 07/02/23 01/04/24 History tablet difluprednate 0.05 % eye drops 1 drp RIGHT EYE 4X/DAY DRY EYES 07/02/23 01/04/24 History propylene glycol 0.6 % eye drops 1 drp RIGHT EYE Q6H PRN dry eyes 07/02/23 01/04/24 History (Lubricant Eye (propylene glycol)) valacyclovir 500 mg tablet 1,000 mg (2 x 500 mg) PO DAILY 10 07/03/23 01/04/24 Rx days #20 tabs metoprolol succinate 50 mg 50 mg PO DAILY #90 TABLETS 07/06/23 01/04/24 06:00 Rx tablet,extended release 24 hr duloxetine 20 mg capsule,delayed 20 mg PO DAILY 11/11/23 01/04/24 History release acetaminophen 500 mg capsule 500 mg PO Q6H PRN fever or pain 11/25/23 01/04/24 History [id number]-rdtt-lxnx 8 mg-folic 400 1 tab PO DAILY 12/01/23 01/04/24 History mcg-K 50 mcg-lutein 300 mcg tablet ([facility]) warfarin 4 mg tablet 4 mg PO DAILY #90 TABLETS 12/30/23 12/31/23 Rx amiodarone 200 mg tablet 200 mg PO DAILY #90 TABLETS 01/03/24 01/04/24 Rx Allergy/AdvReac Type Severity Reaction Status Date / Time No Known Allergies Allergy Verified 01/04/24 14:39 Family History Father , 58 Lung cancer Mother Breast cancer Sister Breast cancer Surgical History History of oral surgery Amputated toe of left foot History of excision of lesion H/O: hammer toe correction S/P breast lumpectomy History of colonoscopy (~2019) S/P AAA (abdominal aortic aneurysm) repair History of hysterectomy H/O mastectomy Social History household members: spouse Smoking Status: Former smoker quit date: 03/15/12 pack-years: 39 alcohol intake: current alcohol intake frequency: a few times a week Alcohol type: beer and wine substance use type: does not use Review of Systems (Anesthesia) ROS Narrative System reviewed and no additional complaints, except as documented.
[2024-01-05 07:02] LABS: International Normalized Ratio 1.6; Prothrombin Time (Protime)PT. 18.6 SECONDS (11.7-14.9)
--- NOTE | 2024-01-05 07:12 | PCM.HP.STD ---
HPI - General General Date of Admission: 01/05/24 Date of Service: 01/05/24 Chief Complaint: lung CA HPI Narrative OSMIN DAN, is a 73 F who presents for medport placement. 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 receptor positive status (ER+) Ductal carcinoma in situ (DCIS) of left breast Malignant neoplasm of unspecified site of right female breast Nontoxic single thyroid nodule Vitamin D deficiency Wears dentures Cancer Arthritis Former smoker Hypertension History of echocardiogram History of stress test Cardiology follow-up encounter Essential (primary) hypertension Hyperlipidemia Breast cancer Gout Obesity Abdominal aortic aneurysm (AAA) History of breast cancer Home Medications ?Medication ?Instructions ?Recorded ?Last Taken ?Type gabapentin 300 mg capsule 300 mg PO QHS Pain 09/03/22 01/04/24 History allopurinol 100 mg tablet 100 mg PO DAILY Cardiac 02/08/23 01/04/24 History gabapentin 100 mg capsule 100 mg PO DAILY Artheritis Pain 06/16/23 07/02/23 08:00 History potassium chloride 20 mEq 20 meq PO DAILY #30 tabs 06/19/23 01/04/24 Rx tablet,extended release(part/cryst) (Klor-Con M) ascorbic acid (vitamin C) 500 mg 500 mg PO DAILY SUPPLEMENT 07/02/23 01/04/24 History tablet difluprednate 0.05 % eye drops 1 drp RIGHT EYE 4X/DAY DRY EYES 07/02/23 01/04/24 History propylene glycol 0.6 % eye drops 1 drp RIGHT EYE Q6H PRN dry eyes 07/02/23 01/04/24 History (Lubricant Eye (propylene glycol)) valacyclovir 500 mg tablet 1,000 mg (2 x 500 mg) PO DAILY 10 07/03/23 01/04/24 Rx days #20 tabs metoprolol succinate 50 mg 50 mg PO DAILY #90 TABLETS 07/06/23 01/04/24 06:00 Rx tablet,extended release 24 hr duloxetine 20 mg capsule,delayed 20 mg PO DAILY 11/11/23 01/04/24 History release acetaminophen 500 mg capsule 500 mg PO Q6H PRN fever or pain 11/25/23 01/04/24 History dkaiqywz-oenu-stve 8 mg-folic 400 1 tab PO DAILY 12/01/23 01/04/24 History mcg-K 50 mcg-lutein 300 mcg tablet ([facility]) warfarin 4 mg tablet 4 mg PO DAILY #90 TABLETS 12/30/23 12/31/23 Rx amiodarone 200 mg tablet 200 mg PO DAILY #90 TABLETS 01/03/24 01/04/24 Rx camphor 3.1 %-methyl salicylate 10 1 patch topical DAILY 01/05/24 01/05/24 History %-menthol 6 % topical patch (Salonpas) Allergy/AdvReac Type Severity Reaction Status Date / Time No Known Allergies Allergy Verified 01/04/24 14:39 Family History Father , 58 Lung cancer Mother Breast cancer Sister Breast cancer Surgical History History of oral surgery Amputated toe of left foot History of excision of lesion H/O: hammer toe correction S/P breast lumpectomy History of colonoscopy (~2018) S/P AAA (abdominal aortic aneurysm) repair History of hysterectomy H/O mastectomy Social History household members: spouse Smoking Status: Former smoker quit date: 03/15/12 pack-years: 39 alcohol intake: current alcohol intake frequency: a few times a week Alcohol type: beer and wine substance use type: does not use Vital Signs Vital Signs Vital Signs: 01/05/24 06:37 01/05/24 06:37 Temperature 98.8 F Temperature Source Temporal Pulse Rate 75 Respiratory Rate 18 Respiratory Pattern Normal Blood Pressure 155/76 H Blood Pressure Mean 102 Blood Pressure Source Monitor Blood Pressure Position Semi-Fowlers Blood Pressure Location Right Arm Pulse Ox 94 Oxygen Delivery Method Room Air Weight Weight: 145 lb 8.081 oz Body Mass Index (BMI) 25.7 Physical Exam Narrative She is alert and oriented x 3. She is in no acute distress. Head is normocephalic and atraumatic. Pupils are equal round react to light. Extraocular muscles are intact Results Lab / Micro Data Labs: Laboratory Results - last 24 hr 01/05/24 06:33: PT 18.6 H, INR 1.6 Assessment & Plan Assessment/Plan (1) Metastatic bone tumor: PLAN: Plan The patient is a 73-year-old female with metastatic lung cancer. Oncology is recommending resuming chemotherapy. We discussed Mediport placement and she wishes to proceed. This will begin shortly. Charges/Coding Visit Charges Inpatient E&M: 83942 Init Hosp L1
[2024-01-05] MEDS: Cefazolin 2 GM in Syringe IV (07:43)
[2024-01-05] MEDS: Bupivacaine Mpf 0.5% 30 ML VIAL (08:10)
[2024-01-05] MEDS: Lidocaine 1% /Epi 1:100 (20ml) 20 ML Vial (08:10)
--- NOTE | 2024-01-05 08:23 | PCM.POST.ANE ---
Anesthesia: Postop Eval I Current Vital Signs Temperature: 97 F Pulse Rate: 77 Blood Pressure: 102/67 Respiratory Rate: 16 Pulse Ox: 97 Assessment Airway patent: Yes Spontaneous unlabored respirations: Yes nausea: No Vomiting: No Anesthesia Complication: No Fluid Hydration Crystalloid volume administer (ml): 10 Total IV fluid infused: 10 Progress Note Anesthesia document: Postop Eval 1 completed: Yes
--- NOTE | 2024-01-05 08:25 | PCM.POSTANE2 ---
Anesthesia Postop Eval I Sum Postop Eval Completion status Anesthesia document: Postop Eval 1 completed: Yes Anesthesia Postop Eval I Summary Anesthesia Postop Eval I Summary: Anesthesia Postop Eval I: Assessment Summary Airway patent Yes 01/05/24 08:23 Spontaneous unlabored Yes 01/05/24 08:23 respirations Mental status nausea No 01/05/24 08:23 Vomiting No 01/05/24 08:23 Anesthesia Postop Eval I: Fluid Summary Crystalloid volume administer 10 01/05/24 08:23 (ml) Colloids volume administered ( ml) Blood Product volume administered (ml) Total IV fluid infused 10 01/05/24 08:23 Anesthesia Postop Eval I: Summary Notes Anesthesia Complication No 01/05/24 08:23 Anesthesia Complication Comment: Post-operative progress note Anesthesia: Postop Eval II Evaluation Mental status: Awake Pain Level: 0 nausea: No Vomiting: No Complications Anesthesia Complication: No
--- NOTE | 2024-01-05 08:29 | DCINST_ITS ---
Discharge Instructions Diet Discharge Diet: Light diet - advance as tolerated Activity Discharge Activity: Return to Normal Activity and May Shower May shower in (days): 1 Dressing / Incision Call your doctor if your incision/area has: Continuous Slow Oozing, Sudden Increased Bleeding, Increased Pain/ Swelling, Increased Redness, Foul Smelling Discharge and Swelling at the incision site Call your doctor if you observe: Fever of 101 or Higher and Change in Color Remove Dressing in: 1 week Cleanse incision/area with: Soap & Water Follow Up Care Test Results: Test results from this visit will be discussed in further detail at your follow- up appointment, if applicable. Discharge Plan Admission Primary Reason for Your Visit: port placement Attending Provider: Gabriel Shaw Primary Care Provider: Walter Emanuel Chi Instructions Print Language: Nepali Discharge Orders/Prescriptions Prescriptions: New oxycodone-acetaminophen [Percocet] 5-325 mg tablet 1 tab PO Q8H PRN (Reason: pain) 3 Days Qty: 5 0RF Continued gabapentin 300 mg capsule 300 mg PO QHS allopurinol 100 mg tablet 100 mg PO DAILY duloxetine 20 mg capsule,delayed release(DR/EC) 20 mg PO DAILY acetaminophen 500 mg capsule 500 mg PO Q6H PRN (Reason: fever or pain) gabapentin 100 mg capsule 100 mg PO DAILY potassium chloride [Klor-Con M20] 20 mEq tablet,ER particles/crystals 20 meq PO DAILY Qty: 30 2RF ascorbic acid (vitamin C) 500 mg tablet 500 mg PO DAILY difluprednate 0.05 % drops 1 drp RIGHT EYE 4X/DAY Lubricant Eye (propyl glycol) 0.6 % drops 1 drp RIGHT EYE Q6H PRN (Reason: dry eyes) valacyclovir 500 mg tablet 1,000 mg PO DAILY 10 Days Qty: 20 0RF Salonpas 3.1-10-6 % adhesive patch,medicated 1 patch topical DAILY Patient Comments: BEHIND LEFT EAR Rx Instructions: may leave on area for up to 8 hrs [facility] 8 mg iron-400 mcg-50 mcg tablet 1 tab PO DAILY metoprolol succinate 50 mg tablet extended release 24 hr 50 mg PO DAILY Qty: 90 3RF warfarin 4 mg tablet 4 mg PO DAILY Qty: 90 3RF Protocol: Dose Management Condition: Wednesday Dose/Route: 2 mg Instruction: 0.5 x 4 mg tablets Condition: Wednesday Dose/Route: 4 mg Instruction: 1 x 4 mg tablet Condition: Wednesday Dose/Route: 4 mg Instruction: 1 x 4 mg tablet Condition: Wednesday Dose/Route: 4 mg Instruction: 1 x 4 mg tablet Condition: Dose/Route: 0 mg Instruction: 0 tablets Condition: Wednesday Dose/Route: 0 mg Instruction: 0 tablets Condition: Wednesday Dose/Route: 4 mg Instruction: 1 x 4 mg tablet Protocol Text: Adjustment Start Date: 12/16/23 INR Value: 4.9 INR Date: 12/16/23 Recheck Date: 12/20/23 amiodarone 200 mg tablet 200 mg PO DAILY Qty: 90 3RF Referrals / Follow Up: Walter Emanuel Chi, MD [Primary Care Provider] - Disposition Disposition (needs filled in before D/C Order can be placed): Home, Self Care
--- NOTE | 2024-01-05 08:45 | RAD_ITS ---
STUDY: X-RAY CHEST REASON FOR EXAM: Female, 73 years old. Port placement TECHNIQUE: Single AP portable view of the chest. COMPARISON: 11/30/2023 FINDINGS: EKG leads overlie the chest. A left subclavian port has been placed since the previous study, tip is in the mid SVC. No complications Right lung is normally expanded without evidence of a superimposed process. There is persistent opacification in the left hemithorax likely due to an obstructing lesion at the left perihilar space causing postobstructive atelectasis, infiltrate and/or effusion. Heart and mediastinum cannot be accurately evaluated due to the opacified left hemithorax. There is atherosclerotic calcification of the aortic arch with tortuosity. There are diffuse degenerative changes of the visualized thoracic spine. Normal visualized ribs, clavicles, and shoulders. No change in the appearance of a surgical neck fracture to the left kidney measures There is no demonstrated abnormality of the visualized soft tissue structures of the upper abdomen. RAD/CXR for Line Placement IMPRESSION: Persistent opacification in the inferior half the left hemithorax likely due to a left perihilar mass causing obstructive atelectasis/infiltrate and large effusion. A left subclavian port is in place since the previous study, tip is in the mid SVC, no complications Electronically Signed: William Wright MD at 9:03 EDT ,
--- NOTE | 2024-01-05 10:00 | OP.PCM_ITS ---
Operative Report (Standard) Operative Information Surgery/Procedure Performed: Left subclavian Mediport placement with C arm Surgeon: Gabriel Shaw Date of Procedure: 01/05/24 Procedure Start Time: 07:53 Procedure Stop Time: 08:21 Pre-Operative Diagnosis: Metastatic lung cancer Post-Operative Diagnosis: Metastatic lung cancer Select all DRAINS/GRAFTS/IMPLANTS that apply: Implanted device Implanted device details: PowerPort 8 [place] port Type of Anesthesia: MAC Special Medications: 2 g Ancef IV Estimated Blood Loss: 5 cc Specimen collected: No Description of surgery: The patient is a 73-year-old female with widely metastatic lung cancer. Her treating oncology team is recommending resuming chemotherapy. She has had chemotherapy in the past. Mediport placement was recommended. She presented today to have this performed. We again discussed the details of the procedure including risks benefits and alternatives. She wished to proceed. Patient was then brought to the operating room today following informed consent. Preoperative antibiotics were given and a timeout was performed. She was placed supine on the operative table with arms initially outstretched on arm boards. MAC anesthesia was induced. Once adequately sedated an axillary roll was placed vertically between her shoulder blades and her arms were comfortably tucked at her side. The left upper chest and neck region was then prepped and draped in the usual manner. Local anesthetic was then injected into the left periclavicular area. Using the supplied needle and syringe I was then able to gain access to the left subclavian vein on the first pass. The blood return was a dark red, nonpulsatile, venous appearing blood return. The syringe was then removed from the needle and then the guidewire was then threaded through the aperture and the needle. It did meet some resistance. I was then able to bring in the C arm and was noted that the guidewire seem to kink/coil in the brachiocephalic/superior vena cava region. Under live fluoroscopy I was eventually able to get the guidewire to advance down into the superior vena cava without difficulty. I then marked the site of the planned port subcutaneous pocket. I then injected additional local anesthetic. The incision was made using a #15 blade. Bovie electrocautery was then used dissect down through subtenons tissues down to the the level of the chest wall. At this level a subcutaneous pocket was then created bluntly using finger dissection. A #15 blade was then used to make a small less than 1 cm incision at the entry point of the guidewire. The tubing was then attached to the tunneler and the tubing was tunneled into the larger incision and up and out through the smaller incision. This was trimmed to about 22 cm. This was attached to the Mediport hub. The hub was then affixed to the underlying chest wall using Prolene suture x 2. The dilator and tear-away sheath were then threaded over the guidewire and advanced down to the hub. C-arm was brought into confirm good positioning of the sheath and guidewire. The guidewire and dilator were then removed thus leaving the sheath in place. The free end of the tubing was then threaded down the sheath the sheath was then extracted as the tip of the tubing was advanced. Once in place the port was then checked to make sure that it heather and flushed easily. It heather and flushed very well with good blood return and flushed with injectable saline. I then repeated this with heparin flush as well. Hemostasis was excellent. The incision was then closed in 2 layers. 3-0 Vicryl was used to close the subdermal layer and then 5-0 Vicryl was run in the skin. 5-0 Vicryl was used in close the smaller incision as well. Skin glue was applied as dressing along with a 2 x 2 and a large OpSite. She was awakened by anesthesia and taken to PACU in good condition where a chest x-ray will be performed. 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
[2024-01-06 15:10] LABS: INR Fingerstick 2.1; Prothrombin Time Fingerstick 22.7 SEC (11.7-14.9)
[2024-01-13 12:07] LABS: INR Fingerstick 2.1; Prothrombin Time Fingerstick 22.7 SEC (11.7-14.9)
== END 2024-01-05 09:47 | disposition home or self-care (01) ==
LOC: SDC 05:44 → AC 05:45
PROVIDERS: Anesthesiology; PCP Family Medicine Geriatric Medicine; Referring Provider Surgery; Visit Provider Surgery
PROC: (CPT 36561; principal; 2024-01-05 07:15)
DX: Z45.2 Encounter for adjustment and management of vascular access device (principal); C78.00 Secondary malignant neoplasm of unspecified lung; C79.51 Secondary malignant neoplasm of bone; I48.91 Unspecified atrial fibrillation; Z87.891 Personal history of nicotine dependence; I10 Essential (primary) hypertension; Z79.01 Long term (current) use of anticoagulants; E78.5 Hyperlipidemia, unspecified; Z92.21 Personal history of antineoplastic chemotherapy; Z79.899 Other long term (current) drug therapy
CPT/HCPCS: 36561; 00532; 36416; 71045; 77001; 85610; A4216; C1788

== ENCOUNTER 2024-01-13 11:19 | Emergency (ER) | payer MEDICARE, SELFPAY ==
[2024-01-13] VITALS (7 sets, daily range): BP systolic 112–138; BP diastolic 64–86; PULSE 67–78; RESP 16–18; TEMP 36.7–36.8; O2SAT 73–100
--- NOTE | 2024-01-13 12:07 | RAD_ITS ---
INDICATION: ams lung cancer EXAMINATION/TECHNIQUE: X-RAY - XR Chest 1 View COMPARISON: January 05, 2024 FINDINGS: LINES/DEVICES: There is a central venous catheter in place terminating within the expected region of the superior vena cava. LUNGS: There is a stable left pleural effusion associated with an ill-defined opacity within the left hilar region. No pneumothorax. MEDIASTINUM AND CARDIOVASCULAR STRUCTURES: Cardiac silhouette not enlarged. Central airways and mediastinal contour are unremarkable. BONES AND SOFT TISSUES: There is a stable left proximal humeral deformity suggestive of a impacted fracture. RAD/Chest 1 View (Portable) IMPRESSION: Stable left pleural effusion associated with an ill-defined opacity within the left hilar region may reflect a neoplastic process, atelectasis and/or pneumonia. Electronically Signed: Shirley Ochoa MD at 13:00 EDT ,
--- NOTE | 2024-01-13 12:25 | EX.ED.DYSGE1 ---
HPI History of Present Illness Chief Complaint: Confusion Informant: patient and family Narrative Narrative: 73-year-old female presenting to the emergency room with confusion. Patient states that she has a history of lung cancer status postchemotherapy and radiation. She was started on immunotherapy yesterday. She states that she was prescribed steroids which caused her not to be able to sleep well last night. Today she had a 1 month follow-up with radiation oncology. When leaving the appointment she states she got turned around in the hallway went the wrong direction. Family states she became very anxious and tightened up. It was reported to us that her oxygen levels were low. She does not wear oxygen at home. She is currently denying any pain. She has not yet ate today. She states that she has at times had confusion and sometimes related to a UTI. She does not feel dyspneic or been experiencing a cough. Patient notes brown formed stool. She denies any black or tarry stools no bright red blood. She has not seen any blood loss. 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 Hypoxia Anemia Prerenal azotemia Oral candidiasis Encounter for education 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 receptor positive status (ER+) Ductal carcinoma in situ (DCIS) of left breast Malignant neoplasm of unspecified site of right female breast Nontoxic single thyroid nodule Vitamin D deficiency Wears dentures Cancer Arthritis Former smoker Hypertension History of echocardiogram History of stress test Cardiology follow-up encounter Essential (primary) hypertension Hyperlipidemia Breast cancer Gout Obesity Abdominal aortic aneurysm (AAA) History of breast cancer Home Medications ?Medication ?Instructions ?Recorded ?Last Taken ?Type gabapentin 300 mg capsule 300 mg PO QHS Pain 09/03/22 01/04/24 History allopurinol 100 mg tablet 100 mg PO DAILY Cardiac 02/08/23 01/04/24 History gabapentin 100 mg capsule 100 mg PO DAILY Artheritis Pain 06/16/23 07/02/23 08:00 History potassium chloride 20 mEq 20 meq PO DAILY #30 tabs 06/19/23 01/04/24 Rx tablet,extended release(part/cryst) (Klor-Con M) ascorbic acid (vitamin C) 500 mg 500 mg PO DAILY SUPPLEMENT 07/02/23 01/04/24 History tablet difluprednate 0.05 % eye drops 1 drp RIGHT EYE 4X/DAY DRY EYES 07/02/23 01/04/24 History propylene glycol 0.6 % eye drops 1 drp RIGHT EYE Q6H PRN dry eyes 07/02/23 01/04/24 History (Lubricant Eye (propylene glycol)) valacyclovir 500 mg tablet 1,000 mg (2 x 500 mg) PO DAILY 10 07/03/23 01/04/24 Rx days #20 tabs metoprolol succinate 50 mg 50 mg PO DAILY #90 TABLETS 07/06/23 01/04/24 06:00 Rx tablet,extended release 24 hr duloxetine 20 mg capsule,delayed 20 mg PO DAILY 11/11/23 01/04/24 History release acetaminophen 500 mg capsule 500 mg PO Q6H PRN fever or pain 11/25/23 01/04/24 History vzeamikv-jkzm-etgr 8 mg-folic 400 1 tab PO DAILY 12/01/23 01/04/24 History mcg-K 50 mcg-lutein 300 mcg tablet ([facility]) warfarin 4 mg tablet 4 mg PO DAILY #90 TABLETS 12/30/23 12/31/23 Rx amiodarone 200 mg tablet 200 mg PO DAILY #90 TABLETS 01/03/24 01/04/24 Rx camphor 3.1 %-methyl salicylate 10 1 patch topical DAILY 01/05/24 01/05/24 History %-menthol 6 % topical patch (Salonpas) oxycodone-acetaminophen 5 mg-325 1 tab PO Q8H PRN pain 3 days #5 01/05/24 Unknown Rx mg tablet (Percocet) tabs lidocaine-prilocaine 2.5 %-2.5 % 1 applic topical ONCE PRN port 01/12/24 Unknown Rx topical cream access 30 days #30 grams Allergy/AdvReac Type Severity Reaction Status Date / Time No Known Allergies Allergy Verified 01/13/24 11:21 Family History Father , 58 Lung cancer Mother Breast cancer Sister Breast cancer Surgical History History of oral surgery Amputated toe of left foot History of excision of lesion H/O: hammer toe correction S/P breast lumpectomy History of colonoscopy (~2018) S/P AAA (abdominal aortic aneurysm) repair History of hysterectomy H/O mastectomy Social History household members: spouse Smoking Status: Former smoker quit date: 03/15/12 pack-years: 39 alcohol intake: current alcohol intake frequency: a few times a week Alcohol type: beer and wine substance use type: does not use ROS ROS ED Constitutional Constitutional ED: Denies chills, fever(s) or weight loss Eyes Eyes: Denies change in vision or diplopia ENT ENT ED: Denies ear pain, rhinorrhea or sore throat Cardiovascular Cardiovascular: Denies chest pain, orthopnea, palpitations or racing heartbeat Respiratory/Chest Respiratory/Chest: Denies cough, dyspnea or orthopnea Gastrointestinal Gastrointestinal: Denies abdominal pain, diarrhea, nausea or vomiting Genitourinary Genitourinary ED: Denies dysuria, hematuria or urinary frequency Musculoskeletal Musculoskeletal: Denies arthralgias or myalgias Integumentary Denies abscess or rash Neurologic Neurologic: Reports other Details: See history of present illness ; Denies headache(s) or weakness Psychiatric Psychiatric: Denies anxiety, depression, suicidal ideation or suicidal thoughts Endocrine Endocrinology: Denies polydipsia, polyphagia or polyuria Allergic/Immunologic Allergic/Immunologic ED: Denies mouth swelling, tongue swelling or urticaria EXAM Physical Exam Const Vital Signs: 01/13/24 11:21 01/13/24 11:21 01/13/24 12:26 Temperature 98.1 F Temperature Source Oral Pulse Rate 78 74 Respiratory Rate 16 16 Blood Pressure 119/64 112/72 Blood Pressure Mean 82 85 Pulse Ox 85 97 99 Oxygen Delivery Method Room Air Nasal Cannula Oxygen Flow Rate (L/min) 3 01/13/24 14:00 01/13/24 15:00 Temperature Temperature Source Pulse Rate 72 76 Respiratory Rate 18 18 Blood Pressure 135/76 H 138/77 H Blood Pressure Mean 95 97 Pulse Ox 93 98 Oxygen Delivery Method Room Air Nasal Cannula Oxygen Flow Rate (L/min) Positive well nourished and well developed General Appearance ED: well developed and NAD HEENT Reports normocephalic, head/scalp atraumatic and moist mucous membranes Eyes PERRL and EOMs intact bilaterally Neck no lymphadenopathy, supple and no JVD Resp normal respiratory effort and clear to auscultation bilaterally Cardio regular rate, regular rhythm and no murmurs GI normal to inspection, nondistended, normoactive bowel sounds and non-tender Palpation: soft Narrative: Patient deferred rectal exam Back/Spine no CVA tenderness and normal ROM Extremity normal to inspection General Extremety ED: Negative for edema General Extremity: Negative for edema Neuro oriented x3 and CN's II-XII intact bilaterally Sensorium / Orientation: alert Motor Exam: strength 5/5 throughout Psych mental status grossly normal Mood & Affect: Negative for depressed or tearful Skin no rashes or lesions noted and no wounds MDM MDM MDM Narrative Medical decision making narrative: Differential diagnosis includes lung cancer worsening pleural effusion hypoxia electrolyte abnormalities Coumadin coagulopathy anemia pneumonia dehydration UTI My independent interpretation of the chest x-ray is stable pleural effusion on the left. White count slightly elevated 13.6 hemoglobin 8.9 which is down from yesterday. Her INR is supratherapeutic today at 5.3. She does not have any active signs of bleeding. Electrolytes within normal limits with a glucose of 118. Urinalysis is heavily contaminated but no overt infection. Patient is really asymptomatic at rest and has no complaints. When he come back into the room she is actually already dressed and wanting to go. She is not hypoxic at rest but when we exert her down the hallway she goes into the 70s. Spoke with social work to see if we can get her set up on home oxygen. According to home oxygen supply company she is already set up for home oxygen 2 L with exertion but the patient is adamant that she does not have oxygen at home. informed nursing over the phone that this has happened before where she is gotten confused and has required oxygen. Statement of physician for home oxygen: I have reviewed the oxygen testing, and this patient qualifies for the home equipment and portability. The patient is mobile in the home and the community. History & Record Review Discussion w/independent historian: Patient and Family Additional record(s) reviewed:: Prior outpatient record, Prior ED visit and Prior labs Lab Data Attestation: I reviewed the patient's lab results. Labs: Laboratory Results - last 24 hr 01/13/24 01/13/24 12:40 13:20 WBC 13.6 H RBC 3.16 L Hgb 8.9 L Hct 30.2 L MCV 95.6 MCH 28.2 MCHC 29.5 L RDW Std Deviation 62.2 H RDW Coeff of Blanca 17.8 H Plt Count 406 MPV 9.5 Immature Gran % (Auto) 1.800 H Neut % (Auto) 90.8 H Lymph % (Auto) 3.9 L [place] % (Auto) 3.4 Eos % (Auto) 0.0 Baso % (Auto) 0.1 Absolute Neuts (auto) 12.4 H Absolute Lymphs (auto) 0.53 L Nucleated RBC % 0 PT 48.1 H INR 5.3 H* Sodium 143 Potassium 4.8 Chloride 111 H Carbon Dioxide 27.0 Anion Gap 5 BUN 22 H Creatinine 0.94 Est GFR (MDRD) Af Amer 75 Est GFR (MDRD) Non-Af 62 BUN/Creatinine Ratio 23.5 H Glucose 118 H Calcium 8.8 Total Bilirubin 0.20 Direct Bilirubin 0.07 AST 21 ALT 28 Alkaline Phosphatase 112 Total Protein 6.5 Albumin 2.7 L Globulin 3.8 Urine Color Yellow Urine Clarity Cloudy Urine pH 5.0 Ur Specific Black 1.020 Urine Protein 30 H Urine Glucose (UA) Normal Urine Ketones Negative Urine Occult Blood 10 H Urine Nitrite Negative Urine Bilirubin Negative Urine Urobilinogen Normal Ur Leukocyte Esterase 25 H Urine RBC 0-5 SEEN Urine WBC 5-10 SEEN Ur Squamous Epith Cells 25-50 SEEN Urine Bacteria 3+ Hyaline Casts 5-10 SEEN Urine Mucus 2+ Radiography Diagnostic Testing: Clinical Impression(s) from Imaging Studies Chest X-Ray 01/13/24 12:07 IMPRESSION: Stable left pleural effusion associated with an ill-defined opacity within the left hilar region may reflect a neoplastic process, atelectasis and/or pneumonia. 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 Discharge Plan Triage Chief Complaint: Confusion ED Provider: Joo Wynne Dx/Rx/DC Orders Clinical Impression: NSCLC of left lung, Pleural effusion, Hypoxia, Anemia, Supratherapeutic INR Prescriptions: No Action gabapentin 300 mg capsule 300 mg PO QHS allopurinol 100 mg tablet 100 mg PO DAILY duloxetine 20 mg capsule,delayed release(DR/EC) 20 mg PO DAILY acetaminophen 500 mg capsule 500 mg PO Q6H PRN (Reason: fever or pain) gabapentin 100 mg capsule 100 mg PO DAILY potassium chloride [Klor-Con M20] 20 mEq tablet,ER particles/crystals 20 meq PO DAILY Qty: 30 2RF ascorbic acid (vitamin C) 500 mg tablet 500 mg PO DAILY difluprednate 0.05 % drops 1 drp RIGHT EYE 4X/DAY Lubricant Eye (propyl glycol) 0.6 % drops 1 drp RIGHT EYE Q6H PRN (Reason: dry eyes) valacyclovir 500 mg tablet 1,000 mg PO DAILY 10 Days Qty: 20 0RF Salonpas 3.1-10-6 % adhesive patch,medicated 1 patch topical DAILY Patient Comments: BEHIND LEFT EAR Rx Instructions: may leave on area for up to 8 hrs oxycodone-acetaminophen [Percocet] 5-325 mg tablet 1 tab PO Q8H PRN (Reason: pain) 3 Days Qty: 5 0RF [facility] 8 mg iron-400 mcg-50 mcg tablet 1 tab PO DAILY metoprolol succinate 50 mg tablet extended release 24 hr 50 mg PO DAILY Qty: 90 3RF warfarin 4 mg tablet 4 mg PO DAILY Qty: 90 3RF Protocol: Dose Management Condition: Wednesday Dose/Route: 2 mg Instruction: 0.5 x 4 mg tablets Condition: Wednesday Dose/Route: 4 mg Instruction: 1 x 4 mg tablet Condition: Wednesday Dose/Route: 4 mg Instruction: 1 x 4 mg tablet Condition: Wednesday Dose/Route: 4 mg Instruction: 1 x 4 mg tablet Condition: Dose/Route: 0 mg Instruction: 0 tablets Condition: Wednesday Dose/Route: 0 mg Instruction: 0 tablets Condition: Wednesday Dose/Route: 4 mg Instruction: 1 x 4 mg tablet Protocol Text: Adjustment Start Date: 12/16/23 INR Value: 4.9 INR Date: 12/16/23 Recheck Date: 12/20/23 amiodarone 200 mg tablet 200 mg PO DAILY Qty: 90 3RF lidocaine-prilocaine 2.5-2.5 % cream 1 applic topical ONCE PRN (Reason: port access) 30 Days Qty: 30 2RF Primary Care Provider: Walter Emanuel Chi Referrals: Walter Emanuel Chi, MD [Primary Care Provider] - Activity Restrictions/Additional Instructions: I would recommend you hold your Coumadin (warfarin) tonight and tomorrow night. Then resume normal dosing. You should have this rechecked on Wednesday. Please monitor your stool for signs of bleeding. If you are feeling weak lethargic passing out or have concerns that may be related to anemia would recommend returning to emergency. Print Language: Yi Disposition Disposition: Home, Self Care
[2024-01-13 13:02] LABS: AST(SGOT) 21 U/L (15-37); Alanine Aminotransfer ALT/SGPT 28 U/L (13-56); Albumin, Serum 2.7 g/dL (3.2-5.0); Alkaline Phosphatase 112 U/L (45-117); Anion Gap 5 (5-15); BUN 22 mg/dL (7-18); BUN/Creat Ratio 23.5 RATIO (10-20); Bilirubin, Direct 0.07 mg/dL (0.00-0.30); Calcium,Total 8.8 mg/dL (8.5-10.1); Chloride 111 mmol/L (98-107); Creatinine, Serum 0.94 mg/dL (0.55-1.02); EST Glomerular Filtration Rate 62 mL/min (>60); Est Glom Filt Rate - Afr Amer 75 mL/min (>60); Globulin 3.8 g/dL (2.2-4.2); Glucose 118 mg/dL (74-106); Potassium 4.8 mmol/L (3.5-5.1); Protein, Total 6.5 g/dL (6.4-8.2); Sodium Level 143 mmol/L (136-145)
[2024-01-13 13:05] LABS: International Normalized Ratio 5.3; Prothrombin Time (Protime)PT. 48.1 SECONDS (11.7-14.9)
[2024-01-13 13:09] LABS: Absolute Lymphocyte Count 0.53 X10^3/uL (0.83-4.51); Absolute Neutrophil Count 12.4 X10^3/uL (2.0-7.7); Basophil# 0.01 X10^3/uL; Basophil% 0.1 % (0-1); Hematocrit 30.2 % (37-47); Hemoglobin 8.9 g/dL (12.0-15.0); Lymphocyte # 0.53 X10^3/ul (0.83-4.51); Lymphocyte % 3.9 % (19-41); Mean Corp Hgb Conc 29.5 g/dL (32-36); Mean Corpuscular Hgb 28.2 pg (27.0-32.0); Mean Corpuscular Volume 95.6 fL (81-99); Mean Platelet Vol. 9.5 fl (6.2-12.0); Monocyte# 0.47 X10^3/uL; Monocyte% 3.4 % (0-10); NRBC Flagged by Analyzer 0 % (0-5); Neutrophil # 12.38 X10^3/uL (2.7-7.7); Neutrophil % 90.8 % (47-70); POSITIVE DIFFERENTIAL YES; Platelet Count 406 K/mm3 (150-450); RBC Distribution Width CV 17.8 % (11.6-14.6); RBC Distribution Width SD 62.2 fl (35.1-43.9); Red Blood Count 3.16 M/mm3 (4.2-5.4); White Blood Count 13.6 K/mm3 (4.4-11.0)
[2024-01-13 13:29] LABS: Color, Urine Yellow (Yellow); Glucose, Dipstick Normal (Normal); Ketone-Dipstick Negative (Negative); Leukocyte Esterase-Dipstick 25 /ul (Negative); Nitrite-Dipstick Negative (Negative); Occult Blood-Urine 10 /ul (Negative); Protein-Dipstick 30 mg/dl (Negative); Urine Bilirubin Dipstick Negative (Negative); Urine Clarity Cloudy (Clear); Urine Urobilinogen Normal (Normal)
[2024-01-13 13:40] LABS: Bacteria 3+ /hpf (None Seen); Red Blood Cells-Urine 0-5 SEEN /hpf (0-5); Squamous Epithelial Cells - UA 25-50 SEEN /hpf (5-10); White Blood Cells 5-10 SEEN /hpf (0-5)
[2024-01-13 13:41] LABS: Mucous, Urine 2+ /hpf (<or=2+)
[2024-01-13 13:43] LABS: Hyaline Cast 5-10 SEEN /lpf (0-5)
--- NOTE | 2024-01-13 15:17 | ED.RN ---
pt pulse ox checked on earlobe prior to ambulating, pt o2 sats at 91% RA. pt ambulated down the villalobos and back to room. pts o2 sats decrease to 73% after exertion. 3L NC applied and dr altamirano notified
== END 2024-01-13 17:00 | disposition home or self-care (01) ==
PROVIDERS: Emergency Provider Emergency Medicine; PCP Family Medicine Geriatric Medicine; Visit Provider Emergency Medicine
DX: J90 Pleural effusion, not elsewhere classified (principal); C77.9 Secondary and unspecified malignant neoplasm of lymph node, unspecified; C34.92 Malignant neoplasm of unspecified part of left bronchus or lung; R79.1 Abnormal coagulation profile; R41.0 Disorientation, unspecified; D64.9 Anemia, unspecified; I10 Essential (primary) hypertension; E78.5 Hyperlipidemia, unspecified; Z79.01 Long term (current) use of anticoagulants; Z79.899 Other long term (current) drug therapy; Z92.21 Personal history of antineoplastic chemotherapy; Z92.3 Personal history of irradiation; Z87.891 Personal history of nicotine dependence; Z90.710 Acquired absence of both cervix and uterus
CPT/HCPCS: 71045; 80048; 80076; 81001; 85025; 85610; 99283; A4216

== ENCOUNTER → 2024-01-17 | Outpatient (CLI) | payer MEDICARE, SELFPAY ==
[2024-01-17 16:32] LABS: Absolute Lymphocyte Count 0.46 X10^3/uL (0.83-4.51); Absolute Neutrophil Count 7.8 X10^3/uL (2.0-7.7); Basophil# 0.03 X10^3/uL; Basophil% 0.3 % (0-1); Eosinophil# 0.22 X10^3/uL; Eosinophils% 2.5 % (0-5); Hematocrit 34.3 % (37-47); Hemoglobin 10.3 g/dL (12.0-15.0); Lymphocyte # 0.46 X10^3/ul (0.83-4.51); Lymphocyte % 5.2 % (19-41); Mean Corpuscular Hgb 28.2 pg (27.0-32.0); Mean Platelet Vol. 9.5 fl (6.2-12.0); Monocyte# 0.26 X10^3/uL; NRBC Flagged by Analyzer 0 % (0-5); Neutrophil # 7.79 X10^3/uL (2.7-7.7); Neutrophil % 88.4 % (47-70); POSITIVE DIFFERENTIAL YES; Platelet Count 377 K/mm3 (150-450); RBC Distribution Width CV 17.1 % (11.6-14.6); RBC Distribution Width SD 59.4 fl (35.1-43.9); Red Blood Count 3.65 M/mm3 (4.2-5.4); White Blood Count 8.8 K/mm3 (4.4-11.0)
[2024-01-17 16:56] LABS: Vitamin D,25 Hydroxy 20.1 ng/mL
[2024-01-17 17:02] LABS: ALB/GLOB Ratio 0.7 RATIO (0.9-2.4); AST(SGOT) 38 U/L (15-37); Alanine Aminotransfer ALT/SGPT 31 U/L (13-56); Albumin, Serum 3.1 g/dL (3.2-5.0); Alkaline Phosphatase 110 U/L (45-117); Anion Gap 7 (5-15); BUN 22 mg/dL (7-18); Calcium,Total 9.1 mg/dL (8.5-10.1); Chloride 102 mmol/L (98-107); Cholesterol 250 mg/dL (200); Creatinine, Serum 1.22 mg/dL (0.55-1.02); EST Glomerular Filtration Rate 46 mL/min (>60); Est Glom Filt Rate - Afr Amer 55 mL/min (>60); Globulin 4.5 g/dL (2.2-4.2); Glucose 105 mg/dL (74-106); High Density Lipoprotein 65 mg/dL; Potassium 4.5 mmol/L (3.5-5.1); Protein, Total 7.6 g/dL (6.4-8.2); Sodium Level 137 mmol/L (136-145); Triglycerides 226 mg/dL; Uric Acid 3.6 mg/dL (2.6-6.0); Very Low Density Lipoprotein 45 mg/dL (5-40)
== END | disposition home or self-care (01) ==
LOC: POLAB3 16:00
PROVIDERS: PCP Family Medicine Geriatric Medicine; Referring Provider Family Medicine Geriatric Medicine; Visit Provider Family Medicine Geriatric Medicine
DX: I10 Essential (primary) hypertension (principal); M10.9 Gout, unspecified; E55.9 Vitamin D deficiency, unspecified; E78.5 Hyperlipidemia, unspecified
CPT/HCPCS: 36415; 80053; 80061; 82306; 84443; 84550; 85025

== ENCOUNTER → 2024-01-19 | Outpatient (CLI) | payer MEDICARE, SELFPAY | END | disposition home or self-care (01) | LOC: RAD 13:49 | PROVIDERS: PCP Family Medicine Geriatric Medicine; Referring Provider Surgery; Visit Provider Surgery | DX: T82.9XXA Unspecified complication of cardiac and vascular prosthetic device, implant and graft, initial encounter (principal); Y71.8 Miscellaneous cardiovascular devices associated with adverse incidents, not elsewhere classified | CPT/HCPCS: 71046 ==

== ENCOUNTER → 2024-02-21 | Outpatient (CLI) | payer MEDICARE, SELFPAY ==
--- NOTE | 2024-02-21 16:35 | RAD_ITS ---
HISTORY: WHEEZING. TECHNIQUE: XR Chest 2 Views. COMPARISON: 01/19/2024. FINDINGS: CARDIOMEDIASTINAL BORDERS: Cardiac silhouette and mediastinal contour unchanged. Left chest wall with catheter tip at the level of the superior vena cava again seen. Abdominal aortic stent graft again noted is. LUNGS: Persistent atelectasis or consolidation of the left lung base. PLEURA: Moderate left pleural effusion again seen. OSSEOUS STRUCTURES: Degenerative change. RAD/Chest PA and Lateral IMPRESSION: Persistent atelectasis or consolidation in the left mid to lower lung with moderate pleural effusion. Electronically Signed: Zehra Last MD at 8:16 EST ,
== END | disposition home or self-care (01) ==
PROVIDERS: PCP Family Medicine Geriatric Medicine; Visit Provider Family Medicine Geriatric Medicine
DX: R06.2 Wheezing (principal); R68.83 Chills (without fever)
CPT/HCPCS: 71046; 87631

== ENCOUNTER → 2024-03-02 | Outpatient (CLI) | payer MEDICARE, SELFPAY ==
--- NOTE | 2024-03-02 11:50 | US_ITS ---
PROCEDURE: ULTRASOUND GUIDED THORACENTESIS. DATE: March 02, 2024. INDICATION: Female, 73 years old. Left pleural effusion. PHYSICIAN: Joseph Ott M.D. PROCEDURE: The risks, benefits, and alternatives to the procedure were explained to the ration. The specific risks of bleeding, infection, and pneumothorax requiring chest tube insertion were discussed and accepted. Written informed consent was obtained. Ultrasonographic evaluation of the left lower pleural space was carried out. An adequate pocket was identified. The patient was placed in the sitting, upright position. The overlying skin was prepped and draped in sterile fashion. 1% lidocaine was administered subcutaneously for local anesthesia. Under ultrasound guidance, a 5 [place] thoracentesis needle/catheter system was advanced into the left posterior lower pleural fluid collection. Approximately 300 mL of blood-tinged fluid was drained. The catheter was removed, and a sterile dressing was applied. A specimen was collected and sent to the laboratory for analysis, as requested by the referring clinician. The patient tolerated the procedure well. A chest x-ray was ordered. US/Thoracentesis W US IMPRESSION: Ultrasound-guided left thoracentesis. Electronically Signed: Joseph Ott MD at 14:45 EST ,
[2024-03-02 12:07] VITALS: BP 146/75; PULSE 86; RESP 18; O2SAT 100
[2024-03-02] MEDS: Lidocaine 2% (20 ml mdv) 20 ML Vial INFILT (12:12)
[2024-03-02 12:15] VITALS: BP 146/72; PULSE 89; RESP 18; O2SAT 100
--- NOTE | 2024-03-02 12:15 | RAD_ITS ---
STUDY: X-RAY CHEST REASON FOR EXAM: Female, 73 years old. Post thoracentesis TECHNIQUE: AP inspiration and expiration views. COMPARISON: Comparison is made with prior study of February 21, 2024. FINDINGS: The patient is status post left thoracentesis. No evidence of pneumothorax. Residual pleural parenchymal changes are seen at the left lung base. RAD/Chest Insp/Exp 2 View IMPRESSION: Status post left thoracentesis. No evidence of pneumothorax. Residual pleural parenchymal changes at the left lung base. Electronically Signed: Joseph Ott MD at 12:43 EST ,
[2024-03-02 12:18] VITALS: BP 135/74; PULSE 99; RESP 18; O2SAT 100
[2024-03-02 12:25] VITALS: BP 149/83; PULSE 89; RESP 18; O2SAT 100
[2024-03-02 12:30] VITALS: BP 126/70; PULSE 88; RESP 16; O2SAT 100
== END | disposition home or self-care (01) ==
LOC: US 11:49
PROVIDERS: PCP Family Medicine Geriatric Medicine; Referring Provider Internal Medicine Medical Oncology; Visit Provider Internal Medicine Medical Oncology
DX: J90 Pleural effusion, not elsewhere classified (principal)
CPT/HCPCS: 32555; 71046

== ENCOUNTER → 2024-03-03 | Outpatient (CLI) | payer MEDICARE, SELFPAY ==
--- NOTE | 2024-03-03 08:17 | CT_ITS ---
INDICATION: MONITOR LUNG CA-IV ONLY EXAMINATION: CT CHEST AND ABDOMEN WITH CONTRAST - CT Chest And Abdomen W/ Contrast Injection TECHNIQUE: Helically acquired images were obtained of the chest and abdomen.The protocol utilizes one or more of the following dose reduction techniques: automated exposure control, adjustment of mA and/or kV according to patient size,and/or use of iterative reconstruction technique. IV Contrast dosage and agent: Oral contrast: None. COMPARISON: November 23, 2023 FINDINGS: ----Chest: LUNGS, PLEURA AND LARGE AIRWAYS: Left pleural effusion possibly loculated with atelectasis . 8mm right upper lobe spiculated nodule similar to previous study. No pneumothorax. THYROID: No thyroid lesions. HEART AND PERICARDIUM: Heart size is normal. No pericardial effusion. VESSELS: Calcified aortic arch. MEDIASTINUM AND MARGA: No mediastinal or hilar adenopathy. Esophagus is unremarkable. No hiatal hernia. BONES: No suspicious lytic or blastic abnormality. ----Abdomen (without Pelvis): LIVER: Homogeneous. No focal mass. GALLBLADDER AND BILIARY TREE: No calcified gallstones. No gallbladder distension or wall edema. No intra- or extrahepatic biliary ductal dilation. PANCREAS: No focal cystic or solid mass. SPLEEN: Normal size without focal cystic or solid mass. ADRENAL GLANDS: No nodules. KIDNEYS AND URETERS: Normal renal size and position. No hydronephrosis. Left renal cysts. PERITONEUM: No ascites or free air. No other fluid collection. BOWEL: No evidence of acute appendicitis. Small hiatal hernia. No focal inflammatory change. LYMPH NODES: No enlarged mesenteric or retroperitoneal lymph nodes. VESSELS: Calcified aorta with an aneurysm measuring 4.2 cm at the infrarenal segment. A patent aortobiiliac stent is in place. Dilated left common iliac artery with a diameter of 2.1 cm ABDOMINAL WALL: No discrete abdominal wall hernia. BONES: No lytic or blastic abnormality. CT/CT Chest AND Abd W/ Contrast IMPRESSION: Stable spiculated right upper lobe nodule. Relatively stable left pleural effusion possibly loculated with atelectasis. Aortic and left common iliac aneurysm. Patent aortobiiliac stent graft. Small hiatal hernia. Electronically Signed: Saud Jeffries DO at 23:47 EST Reading Location ID and State: [facility] / [place] Tel [phone], Service support ,
[2024-03-03] MEDS: 0.9 % NaCl (Sterile) Posiflush 10 mL IV (08:30)
[2024-03-03] MEDS: 0.9% Saline Lock 10 ML Syringe IV (08:39)
== END | disposition home or self-care (01) ==
LOC: CT 07:26
PROVIDERS: PCP Family Medicine Geriatric Medicine; Referring Provider Internal Medicine Medical Oncology; Visit Provider Internal Medicine Medical Oncology
DX: C34.92 Malignant neoplasm of unspecified part of left bronchus or lung (principal); C77.1 Secondary and unspecified malignant neoplasm of intrathoracic lymph nodes
CPT/HCPCS: 71260; 74160; Q9967

== ENCOUNTER 2024-03-21 11:21 | Emergency (ER) | payer MEDICARE, SELFPAY ==
[2024-03-21 11:21] VITALS: BP 113/57; PULSE 87; RESP 17; TEMP 36.9; O2SAT 97; O2SAT 98; BMI 27.8
--- NOTE | 2024-03-21 12:18 | CT_ITS ---
EXAM: CT HEAD WITHOUT INTRAVENOUS CONTRAST CLINICAL INDICATION: Trauma injury. TECHNIQUE: Multiple axial images were obtained of the head without intravenous contrast. This CT exam was performed using one or more of the following dose reduction techniques: automated exposure control, adjustment of the mA and/or kV according to patient size, and/or use of iterative reconstruction technique. RADIATION DOSE: CTDIvol = 44.99 mGy, DLP = 762.36 mGy-cm COMPARISON: CT head without contrast 07/02/2023. 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 Hypodensities in the periventricular white matter are chronic white matter ischemic changes. No intra- or extra-axial hemorrhage. No intracranial mass or mass effect. Posterior fossa structures are unremarkable. Ventricles are appropriate for age. No hydrocephalus. Basal cisterns are patent. BONES/JOINTS: Unremarkable. No discrete lytic or blastic abnormalities. SINUSES: Unremarkable as visualized. Clear. MASTOID AIR CELLS: Unremarkable. Clear. ORBITS: Visualized globes, extraocular muscles, optic nerves and retrobulbar fat appear unremarkable. CT/Brain/Head without Contrast IMPRESSION: 1. No acute findings in the head/brain. 2. 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 3. Chronic periventricular white matter ischemic changes in both cerebral hemispheres. 4. No significant interval change. Electronically Signed: Nawaf Orozco MD at 13:47 EST ,
--- NOTE | 2024-03-21 12:18 | CT_ITS ---
EXAM: CT CERVICAL SPINE WITHOUT INTRAVENOUS CONTRAST CLINICAL INDICATION: Trauma injury. TECHNIQUE: Helically acquired images were obtained of the cervical spine without intravenous contrast. 2D reformatted images were reviewed. This CT exam was performed using one or more of the following dose reduction techniques: automated exposure control, adjustment of the mA and/or kV according to patient size, and/or use of iterative reconstruction technique. RADIATION DOSE: CTDIvol = 23.54 mGy, DLP = 448.21 mGy-cm COMPARISON: CT cervical spine without contrast 11/19/2022. FINDINGS: VERTEBRAE: Mild cervical kyphosis. Minimal degenerative anterolisthesis of C3 on C4 is unchanged. No suspicious acute fractures of the vertebral bodies and posterior osseous spine. No significant cervical facet arthropathy. No discrete lytic or blastic abnormality. Normal craniocervical junction and cervicothoracic junction. DISCS/SPINAL CANAL/NEURAL FORAMINA: Pronounced disc space height narrowing at C4-C5 disc space level and C5-C6 disc space level. Anterior marginal spurs at C4-C5, C5-C6 and C6-C7 disc space levels. SOFT TISSUES: Unremarkable. No prevertebral soft tissue swelling. LYMPH NODES: Unremarkable. No cervical adenopathy. LUNG APICES: Unremarkable as visualized. Clear. PLEURAL SPACE: Breathing motion artifacts in the lung apices. Left posterior apical pleural thickening. CT/Spine Cervical without Contras IMPRESSION: 1. No CT evidence of acute fractures of the cervical spine. 2. Mild degenerative retrolisthesis of C4 on C5. 3. No significant change when compared to 11/19/2022. Electronically Signed: Nawaf Orozco MD at 13:54 EST ,
--- NOTE | 2024-03-21 12:18 | EKG12_ITS ---
Test Reason : FALL Blood Pressure : */* mmHG Vent. Rate : 83 BPM Atrial Rate : 83 BPM P-R Int : 174 ms QRS Dur : 126 ms QT Int : 418 ms P-R-T Axes : 6 -29 117 degrees QTcB Int : 491 ms Normal sinus rhythm Left bundle branch block Abnormal ECG baseline artifact Confirmed by Erwin Lewis ([id number]), photo editor WILBER RIVERA ([id number]) on 03/22/2024 8:26:16 AM Referred By: Confirmed By: Erwin Lewis
--- NOTE | 2024-03-21 12:21 | ED.VIS.FALL ---
HPI HPI - Fall History of Present Illness Chief Complaint: Fall Narrative Narrative: 73-year-old female past medical history of lung carcinoma, has frequent falls presents today status post fall with head injury. She does take warfarin for atrial fibrillation. Her home health nurse found her on the floor today. states that she gets very weak and her legs are wobbly and she may be dehydrated. She tends to fall. She has not had her chemotherapy and is supposed to have it tomorrow. They noticed that she has a lump on her left forehead. She has history of chronic neck pain but no new neck pain after her fall. She presents with fall and traumatic hematoma of her forehead, on Coumadin, and occasional generalized weakness with frequent falls. 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 receptor positive status (ER+) Ductal carcinoma in situ (DCIS) of left breast Malignant neoplasm of unspecified site of right female breast Nontoxic single thyroid nodule Vitamin D deficiency Wears dentures Cancer Arthritis Former smoker Hypertension History of echocardiogram History of stress test Cardiology follow-up encounter Essential (primary) hypertension Hyperlipidemia Breast cancer Gout Obesity Abdominal aortic aneurysm (AAA) History of breast cancer Home Medications ?Medication ?Instructions ?Recorded ?Last Taken ?Type gabapentin 300 mg capsule 300 mg PO QHS Pain 09/03/22 03/20/24 History allopurinol 100 mg tablet 100 mg PO DAILY Cardiac 02/08/23 03/21/24 History gabapentin 100 mg capsule 100 mg PO DAILY Artheritis Pain 06/16/23 03/21/24 History potassium chloride 20 mEq 20 meq PO DAILY #30 tabs 06/19/23 01/04/24 Rx tablet,extended release(part/cryst) (Klor-Con M) ascorbic acid (vitamin C) 500 mg 500 mg PO DAILY SUPPLEMENT 07/02/23 03/21/24 History tablet valacyclovir 500 mg tablet 1,000 mg (2 x 500 mg) PO DAILY 10 07/03/23 03/21/24 Rx days #20 tabs metoprolol succinate 50 mg 50 mg PO DAILY #90 TABLETS 07/06/23 03/21/24 Rx tablet,extended release 24 hr duloxetine 20 mg capsule,delayed 20 mg PO DAILY 11/11/23 03/21/24 History release acetaminophen 500 mg capsule 500 mg PO Q6H PRN fever or pain 11/25/23 01/04/24 History mnalivqd-rgwp-ddid 8 mg-folic 400 1 tab PO DAILY 12/01/23 03/21/24 History mcg-K 50 mcg-lutein 300 mcg tablet ([facility]) warfarin 4 mg tablet 4 mg PO DAILY #90 TABLETS 12/30/23 03/21/24 Rx amiodarone 200 mg tablet 200 mg PO DAILY #90 TABLETS 01/03/24 03/21/24 Rx camphor 3.1 %-methyl salicylate 10 1 patch topical DAILY PRN pain 01/05/24 01/05/24 History %-menthol 6 % topical patch (Salonpas) lidocaine-prilocaine 2.5 %-2.5 % 1 applic topical ONCE PRN port 01/12/24 Unknown Rx topical cream access 30 days #30 grams albuterol sulfate 90 mcg/actuation 2 puff inhalation Q4H PRN 03/09/24 Unknown History aerosol inhaler shortness of breath or wheezing ondansetron HCl 8 mg tablet 8 mg PO Q12H PRN nausea 03/09/24 Unknown History oxycodone 5 mg tablet 5 mg PO Q6H PRN pain 03/09/24 Unknown History nitrofurantoin macrocrystal 100 mg 100 mg PO BID #10 caps 03/18/24 03/21/24 Rx capsule Allergy/AdvReac Type Severity Reaction Status Date / Time No Known Allergies Allergy Verified 03/21/24 11:27 Family History Father , 58 Lung cancer Mother Breast cancer Sister Breast cancer Surgical History History of oral surgery Amputated toe of left foot History of excision of lesion H/O: hammer toe correction S/P breast lumpectomy History of colonoscopy (~2018) S/P AAA (abdominal aortic aneurysm) repair History of hysterectomy H/O mastectomy Social History household members: spouse Smoking Status: Former smoker quit date: 03/15/12 pack-years: 39 alcohol intake: current alcohol intake frequency: a few times a week Alcohol type: beer and wine substance use type: does not use ROS ROS ED ROS Narrative Constitutional: No fever, no chills. Occasional generalized weakness, frequent falls. HEENT: No sore throat. Chronic neck pain, no new symptoms.. No loss of vision. No rhinorrhea. Lump on forehead, left. Cardiovascular: No chest pain. No palpitations. No pedal edema. Respiratory: No cough, no shortness of breath. Abdominal: No abdominal pain. No nausea. No vomiting. Genitourinary: No dysuria. No hematuria. Musculoskeletal: No myalgias. No arthralgias. Neurologic: No headaches. No dizziness. No lightheadedness. EXAM Physical Exam Narrative Exam Narrative: GCS 15. ABCs intact. Nontoxic-appearing. Positive hematoma with slight ecchymosis on the left forehead. PERRL, EOMI. Neck soft supple. Cardiovascular examination regular rate and rhythm. No respiratory distress or tachypnea. Occasional rhonchi on examination. Abdomen soft and nontender. Neurological examination shows her to be awake, alert, and oriented. Nonfocal, nonlateralizing. Const Vital Signs: 03/21/24 11:21 03/21/24 11:53 03/21/24 13:21 Temperature 98.5 F Temperature Source Oral Pulse Rate 87 82 Respiratory Rate 17 20 H Respiratory Effort Normal Blood Pressure 113/57 L 133/66 H Blood Pressure Mean 75 88 Pulse Ox 98 98 Oxygen Delivery Method Nasal Cannula Oxygen Flow Rate (L/min) 3 MDM MDM MDM Narrative Medical decision making narrative: Differential diagnosis includes but not limited to dehydration versus generalized weakness versus UTI. As she is on Coumadin for atrial fibrillation with her head injury there is concern for subarachnoid hemorrhage or subdural hemorrhage versus closed injury of the brain. I reviewed her laboratory work after med port was accessed. She was bolused normal saline 1 L intravenously. She has normal white count of 7.9 with hemoglobin 7.5 but this appears to be around her baseline when compared to previous laboratories. Platelet count elevated at 517 which may be more of an acute phase reactant. INR is supratherapeutic at 3.3. She was told to hold her Coumadin for 1 to 2 days and then have it rechecked, as I suspect her goal would be between 2 and 3 but she is unsure. BUN is 11 with creatinine 1.07, no profound dehydration. Sodium normal at 139 with potassium 4.1. While urinalysis shows 25-50 WBCs there is 0 bacteria. She is not having dysuria so I do not feel antibiotics are indicated. This will be sent for culture. I reviewed the radiology report of the CT of the brain and the C-spine. While she has chronic changes and DJD of the spine, there is no acute fracture. There is no evidence of an acute intracranial hemorrhage. At this point in time, I feel she can be discharged safely home with follow-up. She states that she is post to have chemotherapy tomorrow, and they have been putting it off for a few weeks, so she is motivated for discharge. I do not feel she requires observation or admission at this time. Patient and her are agreeable to the plan. Return instructions were reviewed. Disposition is discharged home in stable condition. History & Record Review Discussion w/independent historian: Patient and Family Lab Data Attestation: I reviewed the patient's lab results. Labs: Laboratory Results - last 24 hr 03/21/24 03/21/24 11:51 12:25 WBC 7.9 RBC 2.49 L Hgb 7.5 L Hct 25.0 L MCV 100.4 H MCH 30.1 MCHC 30.0 L RDW Std Deviation 104.9 H RDW Coeff of Blanca 30.1 H Plt Count 517 H MPV 9.6 Immature Gran % (Auto) 4.700 H Neut % (Auto) 64.7 Lymph % (Auto) 7.2 L Haskell % (Auto) 18.6 H Eos % (Auto) 4.2 Baso % (Auto) 0.6 Absolute Neuts (auto) 5.1 Absolute Lymphs (auto) 0.57 L Nucleated RBC % 2.9 Polychromasia 1+ Anisocytosis 2+ Ovalocytes 1+ PT 34.0 H INR 3.3 Sodium 139 Potassium 4.1 Chloride 107 Carbon Dioxide 28.0 Anion Gap 4 L BUN 11 Creatinine 1.07 H Estim Creat Clear Calc 43.69 Est GFR (MDRD) Af Amer 64 Est GFR (MDRD) Non-Af 53 L BUN/Creatinine Ratio 10.3 Glucose 98 Calcium 8.7 Total Bilirubin 0.30 AST 16 ALT 17 Alkaline Phosphatase 109 Total Protein 6.4 Albumin 2.7 L Globulin 3.7 Albumin/Globulin Ratio 0.7 L Urine Color Yellow Urine Clarity Sl. Cloudy Urine pH 5.0 Ur Specific [place] 1.020 Urine Protein 30 H Urine Glucose (UA) Normal Urine Ketones 5 H Urine Occult Blood Negative Urine Nitrite Negative Urine Bilirubin Negative Urine Urobilinogen Normal Ur Leukocyte Esterase 500 H Urine RBC 0 SEEN Urine WBC 25-50 SEEN Ur Squamous Epith Cells 0-5 SEEN Urine Bacteria 0 SEEN Urine Mucus 0 SEEN Radiography Diagnostic Testing: Clinical Impression(s) from Imaging Studies Brain CT 03/21/24 12:18 IMPRESSION: 1. No acute findings in the head/brain. 2. 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 3. Chronic periventricular white matter ischemic changes in both cerebral hemispheres. 4. No significant interval change. Electronically Signed: Nawaf Orozco MD at 13:47 EST Reading Location ID and State: [facility] / [place] , Service support , Cervical Spine CT 03/21/24 12:18 IMPRESSION: 1. No CT evidence of acute fractures of the cervical spine. 2. Mild degenerative retrolisthesis of C4 on C5. 3. No significant change when compared to 11/19/2022. Electronically Signed: Nawaf Orozco MD at 13:54 EST , Discharge Plan Triage Chief Complaint: Fall ED Provider: Nawaf Snider Dx/Rx/DC Orders Clinical Impression: Falls, Traumatic hematoma of forehead, Closed head injury, Supratherapeutic INR, Breast cancer Instructions: ED Fall with Uncertain Cause, ED Head Injury (Adult), ED Hematoma Prescriptions: No Action gabapentin 300 mg capsule 300 mg PO QHS allopurinol 100 mg tablet 100 mg PO DAILY duloxetine 20 mg capsule,delayed release(DR/EC) 20 mg PO DAILY acetaminophen 500 mg capsule 500 mg PO Q6H PRN (Reason: fever or pain) oxycodone 5 mg tablet 5 mg PO Q6H PRN (Reason: pain) ondansetron HCl 8 mg tablet 8 mg PO Q12H PRN (Reason: nausea) albuterol sulfate 90 mcg/actuation HFA aerosol inhaler 2 puff inhalation Q4H PRN (Reason: shortness of breath or wheezing) gabapentin 100 mg capsule 100 mg PO DAILY potassium chloride [Klor-Con M20] 20 mEq tablet,ER particles/crystals 20 meq PO DAILY Qty: 30 2RF ascorbic acid (vitamin C) 500 mg tablet 500 mg PO DAILY valacyclovir 500 mg tablet 1,000 mg PO DAILY 10 Days Qty: 20 0RF Salonpas 3.1-10-6 % adhesive patch,medicated 1 patch topical DAILY PRN (Reason: pain) Rx Instructions: may leave on area for up to 8 hrs [facility] 8 mg iron-400 mcg-50 mcg tablet 1 tab PO DAILY metoprolol succinate 50 mg tablet extended release 24 hr 50 mg PO DAILY Qty: 90 3RF warfarin 4 mg tablet 4 mg PO DAILY Qty: 90 3RF Protocol: Dose Management Condition: Wednesday Dose/Route: 4 mg Instruction: 1 x 4 mg tablet Condition: Wednesday Dose/Route: 4 mg Instruction: 1 x 4 mg tablet Condition: Wednesday Dose/Route: 4 mg Instruction: 1 x 4 mg tablet Condition: Wednesday Dose/Route: 8 mg Instruction: 2 x 4 mg tablets Condition: Dose/Route: 4 mg Instruction: 1 x 4 mg tablet Condition: Wednesday Dose/Route: 4 mg Instruction: 1 x 4 mg tablet Condition: Wednesday Dose/Route: 4 mg Instruction: 1 x 4 mg tablet Protocol Text: Adjustment Start Date: 03/16/24 INR Value: 3.3 INR Date: 03/16/24 Recheck Date: 03/23/24 amiodarone 200 mg tablet 200 mg PO DAILY Qty: 90 3RF lidocaine-prilocaine 2.5-2.5 % cream 1 applic topical ONCE PRN (Reason: port access) 30 Days Qty: 30 2RF nitrofurantoin macrocrystal 100 mg capsule 100 mg PO BID Qty: 10 0RF Rx Instructions: must administer with a meal/food Primary Care Provider: Walter Emanuel Chi Referrals: Walter Emanuel Chi, MD [Primary Care Provider] - 3-5 Days Activity Restrictions/Additional Instructions: Culture Coumadin for 1 to 2 days and then have it rechecked. Your INR was 3.3 today with suspected goal of it being between 2 and 3. Return with new or worsening symptoms. Print Language: Lao Disposition Disposition: Home, Self Care
[2024-03-21] MEDS: 0.9% Normal Saline (1000mL) 1,000 ML 999 ML IV (12:29)
[2024-03-21 12:30] LABS: Absolute Lymphocyte Count 0.57 X10^3/uL (0.83-4.51); Absolute Neutrophil Count 5.1 X10^3/uL (2.0-7.7); Basophil# 0.05 X10^3/uL; Basophil% 0.6 % (0-1); Eosinophil# 0.33 X10^3/uL; Eosinophils% 4.2 % (0-5); Hemoglobin 7.5 g/dL (12.0-15.0); Lymphocyte # 0.57 X10^3/ul (0.83-4.51); Lymphocyte % 7.2 % (19-41); Mean Corpuscular Hgb 30.1 pg (27.0-32.0); Mean Corpuscular Volume 100.4 fL (81-99); Mean Platelet Vol. 9.6 fl (6.2-12.0); Monocyte# 1.47 X10^3/uL; Monocyte% 18.6 % (0-10); NRBC Flagged by Analyzer 2.9 % (0-5); Neutrophil # 5.13 X10^3/uL (2.7-7.7); Neutrophil % 64.7 % (47-70); POSITIVE DIFFERENTIAL YES; POSITIVE MORPHOLOGY YES; Platelet Count 517 K/mm3 (150-450); RBC Distribution Width CV 30.1 % (11.6-14.6); RBC Distribution Width SD 104.9 fl (35.1-43.9); Red Blood Count 2.49 M/mm3 (4.2-5.4); White Blood Count 7.9 K/mm3 (4.4-11.0)
[2024-03-21 12:31] LABS: Bacteria 0 SEEN /hpf (None Seen); Mucous, Urine 0 SEEN /hpf (<or=2+); Red Blood Cells-Urine 0 SEEN /hpf (0-5)
[2024-03-21 12:31] LABS: Differential Indicated SCAN CRITERIA MET
[2024-03-21 12:33] LABS: Color, Urine Yellow (Yellow); Glucose, Dipstick Normal (Normal); Ketone-Dipstick 5 mg/dl (Negative); Leukocyte Esterase-Dipstick 500 /ul (Negative); Nitrite-Dipstick Negative (Negative); Occult Blood-Urine Negative /ul (Negative); Protein-Dipstick 30 mg/dl (Negative); Urine Bilirubin Dipstick Negative (Negative); Urine Clarity Sl. Cloudy (Clear); Urine Urobilinogen Normal (Normal)
[2024-03-21 12:38] LABS: International Normalized Ratio 3.3
[2024-03-21 12:43] LABS: Squamous Epithelial Cells - UA 0-5 SEEN /hpf (5-10); White Blood Cells 25-50 SEEN /hpf (0-5)
[2024-03-21 12:50] LABS: ALB/GLOB Ratio 0.7 RATIO (0.9-2.4); AST(SGOT) 16 U/L (15-37); Alanine Aminotransfer ALT/SGPT 17 U/L (13-56); Albumin, Serum 2.7 g/dL (3.2-5.0); Alkaline Phosphatase 109 U/L (45-117); Anion Gap 4 (5-15); BUN 11 mg/dL (7-18); BUN/Creat Ratio 10.3 RATIO (10-20); Calcium,Total 8.7 mg/dL (8.5-10.1); Chloride 107 mmol/L (98-107); Creatinine, Serum 1.07 mg/dL (0.55-1.02); EST Glomerular Filtration Rate 53 mL/min (>60); Est Glom Filt Rate - Afr Amer 64 mL/min (>60); Estimated Creatinine Clearance 43.69 ml/min; Globulin 3.7 g/dL (2.2-4.2); Glucose 98 mg/dL (74-106); Potassium 4.1 mmol/L (3.5-5.1); Protein, Total 6.4 g/dL (6.4-8.2); Sodium Level 139 mmol/L (136-145)
[2024-03-21 13:05] LABS: Anisocytosis 2+; Ovalocyte 1+; Polychromasia 1+
[2024-03-21 13:21] VITALS: BP 133/66; PULSE 82; RESP 20; O2SAT 98
[2024-03-21 15:17] VITALS: BP 129/100; PULSE 80; RESP 22; TEMP 36.2; O2SAT 96
== END 2024-03-21 15:18 | disposition home or self-care (01) ==
PROVIDERS: Emergency Provider Emergency Medicine; PCP Family Medicine Geriatric Medicine; Visit Provider Emergency Medicine
DX: S00.83XA Contusion of other part of head, initial encounter (principal); I48.91 Unspecified atrial fibrillation; C50.919 Malignant neoplasm of unspecified site of unspecified female breast; W19.XXXA Unspecified fall, initial encounter; R79.1 Abnormal coagulation profile; I10 Essential (primary) hypertension; E78.5 Hyperlipidemia, unspecified; M54.2 Cervicalgia; G89.29 Other chronic pain; R29.6 Repeated falls; Z79.01 Long term (current) use of anticoagulants; Z79.899 Other long term (current) drug therapy; Z87.891 Personal history of nicotine dependence
CPT/HCPCS: 96360; 96361; 99284; 70450; 72125; 80053; 81001; 85025; 85610; 87086; 87088; 93005; A4216

== ENCOUNTER 2024-03-22 10:00 | Inpatient (IN) | payer MEDICARE, MEDICAID, SELFPAY ==
[2024-03-22] VITALS (16 sets, daily range): BP systolic 105–139; BP diastolic 56–94; PULSE 78–98; RESP 16–92; TEMP 36.1–37.2; O2SAT 16–100; BMI 26.4
--- NOTE | 2024-03-22 10:21 | EX.ED.DYSGE1 ---
HPI History of Present Illness Chief Complaint: Fall Informant: patient, spouse/S.O. and other (Oncology) Narrative Narrative: 73-year-old female history of non-small cell lung cancer with metastasis presenting to the emergency room with frequent falls. She is currently undergoing chemotherapy/immunotherapy with oncology here at the hospital (Dr. Pringle) apparently the patient yet fell yesterday injured her head was seen in the emergency department had a negative head CT and cervical spine CT. She went home fell several more times and also fell on her way into oncology today. At the oncologist office she was noted to have a blood pressure of 89/59 and was hypoxic but she was off of her chronic home O2 and that has since resolved. It was noted that her hemoglobin level was 7 today and she has steadily declined over the past several months. She is scheduled to have endoscopy with Dr. Shaw upcoming. Oncology notes that her right upper extremity is swollen and concern for blood clot but also note that the patient has been supratherapeutic on her INR. Patient states that is just the right hand that is swollen. Oncology was also concerned and was recommending a MRI of the brain. She has not had one since about June. They are recommending a transfusion of PRBC. notes that she is too weak for her to be cared for at home. notes decreased p.o. intake. The patient had her chemotherapy held last week due to UTI which grew out E. coli. She has been on nitrofurantoin. [facility] Medical History (Updated 03/22/24 @ 14:[address] Joo Wynne, DO) Frequent falls Dehydration Falls Headache Anemia Left flank pain Clayton blood in stool Vascular device, implant, or graft complication Lung cancer History of atrial fibrillation Post-menopausal Ambulates with cane Low iron Injury of head and neck Closed fracture of left proximal humerus Carotid stenosis CVA (cerebral vascular accident) Weakness UTI (urinary tract infection) Hypoxia Prerenal azotemia Oral candidiasis Encounter for education 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 receptor positive status (ER+) Ductal carcinoma in situ (DCIS) of left breast Malignant neoplasm of unspecified site of right female breast Nontoxic single thyroid nodule Vitamin D deficiency Wears dentures Cancer Arthritis Former smoker Hypertension History of echocardiogram History of stress test Cardiology follow-up encounter Essential (primary) hypertension Hyperlipidemia Breast cancer Gout Obesity Abdominal aortic aneurysm (AAA) History of breast cancer Home Medications ?Medication ?Instructions ?Recorded ?Last Taken ?Type gabapentin 300 mg capsule 300 mg PO QHS Pain 09/03/22 03/20/24 History allopurinol 100 mg tablet 100 mg PO DAILY Cardiac 02/08/23 03/21/24 History gabapentin 100 mg capsule 100 mg PO DAILY Artheritis Pain 06/16/23 03/21/24 History potassium chloride 20 mEq 20 meq PO DAILY #30 tabs 06/19/23 01/04/24 Rx tablet,extended release(part/cryst) (Klor-Con M) ascorbic acid (vitamin C) 500 mg 500 mg PO DAILY SUPPLEMENT 07/02/23 03/21/24 History tablet valacyclovir 500 mg tablet 1,000 mg (2 x 500 mg) PO DAILY 10 07/03/23 03/21/24 Rx days #20 tabs metoprolol succinate 50 mg 50 mg PO DAILY #90 TABLETS 07/06/23 03/21/24 Rx tablet,extended release 24 hr duloxetine 20 mg capsule,delayed 20 mg PO DAILY 11/11/23 03/21/24 History release acetaminophen 500 mg capsule 500 mg PO Q6H PRN fever or pain 11/25/23 01/04/24 History lysqatvm-ijvn-jfuo 8 mg-folic 400 1 tab PO DAILY 12/01/23 03/21/24 History mcg-K 50 mcg-lutein 300 mcg tablet ([facility]) warfarin 4 mg tablet 4 mg PO DAILY #90 TABLETS 12/30/23 03/21/24 Rx amiodarone 200 mg tablet 200 mg PO DAILY #90 TABLETS 01/03/24 03/21/24 Rx camphor 3.1 %-methyl salicylate 10 1 patch topical DAILY PRN pain 01/05/24 01/05/24 History %-menthol 6 % topical patch (Salonpas) lidocaine-prilocaine 2.5 %-2.5 % 1 applic topical ONCE PRN port 01/12/24 Unknown Rx topical cream access 30 days #30 grams albuterol sulfate 90 mcg/actuation 2 puff inhalation Q4H PRN 03/09/24 Unknown History aerosol inhaler shortness of breath or wheezing ondansetron HCl 8 mg tablet 8 mg PO Q12H PRN nausea 03/09/24 Unknown History oxycodone 5 mg tablet 5 mg PO Q6H PRN pain 03/09/24 Unknown History nitrofurantoin macrocrystal 100 mg 100 mg PO BID #10 caps 03/18/24 03/21/24 Rx capsule Allergy/AdvReac Type Severity Reaction Status Date / Time No Known Allergies Allergy Verified 03/22/24 08:49 Family History Father , 58 Lung cancer Mother Breast cancer Sister Breast cancer Surgical History History of oral surgery Amputated toe of left foot History of excision of lesion H/O: hammer toe correction S/P breast lumpectomy History of colonoscopy (~2018) S/P AAA (abdominal aortic aneurysm) repair History of hysterectomy H/O mastectomy Social History household members: spouse Smoking Status: Former smoker quit date: 03/15/12 pack-years: 39 alcohol intake: current alcohol intake frequency: a few times a week Alcohol type: beer and wine substance use type: does not use ROS ROS ED ROS Narrative Generalized weakness Constitutional Constitutional ED: Denies chills, fever(s) or weight loss Eyes Eyes: Denies change in vision or diplopia ENT ENT ED: Denies ear pain, rhinorrhea or sore throat Cardiovascular Cardiovascular: Denies chest pain, orthopnea, palpitations or racing heartbeat Respiratory/Chest Respiratory/Chest: Denies cough, dyspnea or orthopnea Gastrointestinal Gastrointestinal: Denies abdominal pain, diarrhea, nausea or vomiting Genitourinary Genitourinary ED: Denies dysuria, hematuria or urinary frequency Musculoskeletal Musculoskeletal: Reports other Details: Hand swelling/bruising ; Denies arthralgias or myalgias Integumentary Denies abscess or rash Neurologic Neurologic: Denies headache(s) or weakness Psychiatric Psychiatric: Denies anxiety, depression, suicidal ideation or suicidal thoughts Endocrine Endocrinology: Denies polydipsia, polyphagia or polyuria Allergic/Immunologic Allergic/Immunologic ED: Denies mouth swelling, tongue swelling or urticaria EXAM Physical Exam Narrative Exam Narrative: Patient appears generally weak. Const Vital Signs: 03/22/24 10:00 03/22/24 10:39 03/22/24 12:00 Temperature 96.9 F L Temperature Source Temporal Pulse Rate 84 Respiratory Rate 20 H Respiratory Effort Normal Respiratory Depth Normal Respiratory Pattern Normal Blood Pressure 105/60 126/88 H Blood Pressure Mean 75 100 Pulse Ox 99 95 Oxygen Delivery Method Nasal Cannula Nasal Cannula Oxygen Flow Rate (L/min) 3 3 03/22/24 14:00 Temperature 97.5 F L Temperature Source Oral Pulse Rate 90 Respiratory Rate 22 H Respiratory Effort Respiratory Depth Respiratory Pattern Blood Pressure 130/62 H Blood Pressure Mean 84 Pulse Ox 94 Oxygen Delivery Method Nasal Cannula Oxygen Flow Rate (L/min) 3 Positive well nourished and well developed General Appearance ED: well developed HEENT Reports normocephalic, head/scalp atraumatic and moist mucous membranes Eyes PERRL and EOMs intact bilaterally Neck no lymphadenopathy, supple and no JVD Resp normal respiratory effort and clear to auscultation bilaterally Cardio regular rate, regular rhythm and no murmurs GI normal to inspection, nondistended, normoactive bowel sounds and non-tender Palpation: soft Back/Spine no CVA tenderness and normal ROM Extremity Extremity Narrative: Swelling of the dorsum of the right hand with ecchymosis. There is a ring on her right ring finger which I am able to turn easily. I do not appreciate swelling of the forearm. Neuro oriented x3 and CN's II-XII intact bilaterally Sensorium / Orientation: alert Motor Exam: strength 5/5 throughout Psych mental status grossly normal Mood & Affect: Negative for depressed or tearful Skin no rashes or lesions noted and no wounds MDM MDM MDM Narrative Medical decision making narrative: Differential diagnosis includes but not limited to intracranial hemorrhage/hematoma brain metastasis metabolic acidosis anemia I reviewed the patient's labs from this morning. Her BMP is concerning for a metabolic acidosis. I did repeat this now showing a CO2 level of 25 and anion gap of 9 creatinine 1.02. Lactic acid is 1.3 normal sodium and potassium. Patient was typed and screened. My independent interpretation of the right hand x-ray is no acute fracture. Please see radiologist read. We were able to get her in for a brain MRI. This was read by radiology and reviewed by myself. There is no evidence of acute infarct or metastasis at this time. Patient was typed and crossed for 2 units. Duplex ultrasound was obtained and was negative for DVT of the right upper extremity I will speak with the hospitalist regarding admission History & Record Review Discussion w/independent historian: Patient and Family Lab Data Attestation: I reviewed the patient's lab results. Labs: Laboratory Results - last 24 hr 03/22/24 10:46 Sodium 143 Potassium 4.1 Chloride 109 H Carbon Dioxide 25.0 Anion Gap 9 BUN 12 Creatinine 1.02 Estim Creat Clear Calc 44.75 Est GFR (MDRD) Af Amer 68 Est GFR (MDRD) Non-Af 56 L BUN/Creatinine Ratio 11.8 Glucose 93 Lactic Acid 1.3 Calcium 9.1 Blood Type B POSITIVE Antibody Screen NEGATIVE Radiography Diagnostic Testing: Clinical Impression(s) from Imaging Studies Brain MRI 03/22/24 10:50 IMPRESSION: 1. No MRI evidence of acute or subacute ischemic infarct or intracranial metastatic disease. 2. Multiple chronic periventricular white matter ischemic changes in both cerebral hemispheres. 3. Mixed signal intensity of the old cystic infarct in the left corpus striatum consisting of T1 hypointensity and T1 hyperintensity without magnetic susceptibility on the GRE sequence. This did not enhance with IV contrast and this was also present previously. The mixed signal intensity is of undetermined etiology but is overall unchanged. The T1 hyperintensity is alejandra to cortical laminar necrosis seen on remote ischemic infarcts. Electronically Signed: Nawaf Orozco MD at 14:52 EST , Hand X-Ray 03/22/24 11:11 IMPRESSION: No acute fracture or dislocation identified in the right hand. Soft tissue swelling with mild inflammatory or other erosive arthritis. 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
--- NOTE | 2024-03-22 10:50 | MRI_ITS ---
EXAM: MR HEAD WITHOUT AND WITH INTRAVENOUS CONTRAST CLINICAL INDICATION: Nausea and frequent falls. NSCLC with metastasis. TECHNIQUE: Multiplanar and multisequence MR images of the brain were obtained without and with intravenous contrast. CONTRAST: IV 13ML Clariscan COMPARISON: MRI brain without contrast 06/16/2023. CT head without contrast 03/21/2024. FINDINGS: BRAIN AND EXTRA-AXIAL SPACES: Old cystic infarct in the left corpus striatum is mixed hypointense and hyperintense on T1. This enhances with IV contrast. There are no abnormally enhancing lesions intra-axially and extra-axially. No diffusion restrictions to suspect acute or subacute ischemic infarct. Multiple T2 FLAIR hyperintensity foci in the periventricular white matter of both cerebral hemispheres are chronic white matter ischemic changes. No abnormal magnetic susceptibility on the gradient echo sequence to suggest intracranial bleeding, recent or remote. No intracranial mass or mass effect. Posterior fossa structures are unremarkable. No hydrocephalus. Basal cisterns are patent. SELLA: Unremarkable. Normal sella turcica, pituitary gland, infundibular stalk, optic chiasm and hypothalamus. AUDITORY SYSTEM: Unremarkable. The internal auditory canals are patent. BONES/JOINTS: Unremarkable. No discrete lytic or blastic abnormalities. SINUSES: Unremarkable as visualized. Clear. MASTOID AIR CELLS: Unremarkable as visualized. Clear. ORBITS: Unremarkable as visualized. Both globes, extraocular muscles, optic nerves and retrobulbar fat appear unremarkable. VASCULATURE: Unremarkable as visualized. Normal flow voids in the major intracranial circulation. MRI/Brain W/WO Contrast IMPRESSION: 1. No MRI evidence of acute or subacute ischemic infarct or intracranial metastatic disease. 2. Multiple chronic periventricular white matter ischemic changes in both cerebral hemispheres. 3. Mixed signal intensity of the old cystic infarct in the left corpus striatum consisting of T1 hypointensity and T1 hyperintensity without magnetic susceptibility on the GRE sequence. This did not enhance with IV contrast and this was also present previously. The mixed signal intensity is of undetermined etiology but is overall unchanged. The T1 hyperintensity is alejandra to cortical laminar necrosis seen on remote ischemic infarcts. Electronically Signed: Nawaf Orozco MD at 14:52 EST ,
--- NOTE | 2024-03-22 11:11 | RAD_ITS ---
HISTORY: injury. TECHNIQUE: XR Hand Min 3 Views. COMPARISON: None. FINDINGS: BONES : No acute fracture identified. Degenerative osteophytes segmental joints and small erosions of the ulnar styloid and base of the first proximal phalanx. JOINTS: No dislocation. Mild degenerative change. SOFT TISSUES: Soft tissue swelling of the hand extending into the thumb. RAD/Hand Min 3 Views IMPRESSION: No acute fracture or dislocation identified in the right hand. Soft tissue swelling with mild inflammatory or other erosive arthritis. Electronically Signed: Zehra Last MD at 11:48 EST ,
[2024-03-22 11:21] LABS: Anion Gap 9 (5-15); BUN 12 mg/dL (7-18); BUN/Creat Ratio 11.8 RATIO (10-20); Calcium,Total 9.1 mg/dL (8.5-10.1); Chloride 109 mmol/L (98-107); Creatinine, Serum 1.02 mg/dL (0.55-1.02); EST Glomerular Filtration Rate 56 mL/min (>60); Est Glom Filt Rate - Afr Amer 68 mL/min (>60); Estimated Creatinine Clearance 44.75 ml/min; Glucose 93 mg/dL (74-106); Potassium 4.1 mmol/L (3.5-5.1); Sodium Level 143 mmol/L (136-145)
[2024-03-22 11:41] LABS: Lactic Acid 1.3 mmol/L (0.4-1.9)
--- NOTE | 2024-03-22 14:40 | VDUE_ITS ---
Reason For Study: Right arm swelling Right Proximal Right jugular vein is spontaneous, widely patent, phasic, with no intraluminal echogenicity noted. Right subclavian vein is spontaneous, widely patent, phasic, with no intraluminal echogenicity noted. Right Lower Arm Right radial vein is compressible. Right ulnar vein is compressible. Right Arm Right axillary vein is spontaneous, patent, phasic, competent, compressible and demonstrates augmentation. Right brachial vein is compressible. Right cephalic vein is compressible. Right basilic vein is compressible. Patient Safety Preliminary report given to Jessy MORAN. VL/Venous Duplex US, Unilateral Interpretation Summary Deep veins of the right upper extremity are patent and compressible segmentally . There is no evidence of deep vein thrombosis. Superficial veins of the right upper extremity are patent and compressible segm entally. There is no evidence of superficial vein thrombosis. Ordering Physician: Joo Wynne Referring Physician: Walter Emanuel Chi Performed By: Cristine Mckeon RVT ???
--- NOTE | 2024-03-22 15:18 | PCM.HP.STD ---
HPI - General General Date of Admission: 03/22/24 Date of Service: 03/22/24 Chief Complaint: Falls, Debility, Weakness, Acute on Chronic anemia HPI Narrative The patient is a 73 y/o F w/ PMHx: CKD stage II per GFR trending, Chronic macrocytic anemia and thrombocytopenia secondary to underlying cancer and treatments however does have upcoming endoscopies with Dr. 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 with 08/12/2022 direct laryngoscopy, esophagoscopy with floor the mouth excision with eventual EBUS with biopsies demonstrating nodes consistent with squamous cell carcinoma the left lower lobe with recommendation against surgery per thoracic surgery with follow-up PET/CT at [facility] 09/14/2022 with a large hypermetabolic mass in the left lower lobe extending pleura as well as left hilum, adjacent small nodules, hypermetabolic mediastinal and left hilar nodes, hypermetabolic nodule in the right upper lobe concerning all for metastatic disease, initiated 09/23/2022 on carboplatin/Taxol in addition to radiation complicated by pneumonitis with PET scans with ongoing evidence of metastatic disease with palliative radiation therapy to the left chest most recently 12/03/2023 through 01/02/2024 with again resumption of chemotherapy with Keytruda, carboplatin and Abraxane with planned cycle 4 carboplatin, Abraxane, pembrolizumab 03/16/2024 initially delayed by 1 week secondary to weakness and flank discomfort with urinary tract infection with 03/21/2024 ED evaluation secondary to worsening confusion and fall in the home with unremarkable CT head discharged to home however she is fallen at least 4 times since including in the parking lot while attempting to see oncology with her oxygen falling off and unfortunately likely her oxygenation for at least 30 minutes significantly decreased with initial evaluation with noted 62% oxygenation with complaint of right upper extremity hand swelling and discomfort prompting referral to ED for evaluation. Workup in the ED included T96.4, heart rate 90, BP 89/59 initially, respiratory rate 18, 94% on 3 L nasal cannula with most recent repeat vital signs T97.5 Orally, heart rate 90, BP 130/62, respiratory rate 22, 94% on 3 L nasal cannula, CBC with WBC 8.3, hemoglobin 7.0, MCV 104.8, platelet 44, INR 3.5, BMP with chloride 109, BUN/creatinine 12/1.02, GFR 56, lactic acid 1.3, MRI of the brain with no evidence of any acute or subacute ischemic infarct or intracranial metastatic disease, multiple chronic periventricular white matter ischemic changes in both cerebral hemispheres, mixed signal intensity of the old cystic infarct in the left corpus striatum consisting of T1 hyperintensity and T1 hyperintensity without magnetic susceptibility on the GRE sequence which was present previously with mixed signal intensity undetermined etiology but overall unchanged from prior with a T1 hyperintensity alejandra to cortical laminar necrosis seen on remote ischemic infarcts, plain film of the right hand with soft tissue swelling with mild inflammatory other erosive arthritis with no acute fracture or dislocation identified in the right hand. In the ED patient initiated on 2 unit PRBC. Per patient hemoglobin trending has slowly trended downward since January from 9 down to 8 and now down to 7. Patient does have a history of previous GI bleed. [facility] Medical History Frequent falls Dehydration Falls Headache Left flank pain [place] blood in stool Vascular device, implant, or graft complication Lung cancer History of atrial fibrillation Post-menopausal Ambulates with cane Low iron Injury of head and neck Closed fracture of left proximal humerus Carotid stenosis CVA (cerebral vascular accident) Weakness UTI (urinary tract infection) Hypoxia Anemia Prerenal azotemia Oral candidiasis Encounter for education 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 receptor positive status (ER+) Ductal carcinoma in situ (DCIS) of left breast Malignant neoplasm of unspecified site of right female breast Nontoxic single thyroid nodule Vitamin D deficiency Wears dentures Cancer Arthritis Former smoker Hypertension History of echocardiogram History of stress test Cardiology follow-up encounter Essential (primary) hypertension Hyperlipidemia Breast cancer Gout Obesity Abdominal aortic aneurysm (AAA) History of breast cancer Home Medications ?Medication ?Instructions ?Recorded ?Last Taken ?Type gabapentin 300 mg capsule 300 mg PO QHS Pain 09/03/22 03/20/24 History allopurinol 100 mg tablet 100 mg PO DAILY Cardiac 02/08/23 03/21/24 History gabapentin 100 mg capsule 100 mg PO DAILY Artheritis Pain 06/16/23 03/21/24 History valacyclovir 500 mg tablet 1,000 mg (2 x 500 mg) PO DAILY 10 07/03/23 03/21/24 Rx days #20 tabs metoprolol succinate 50 mg 50 mg PO DAILY #90 TABLETS 07/06/23 03/21/24 Rx tablet,extended release 24 hr duloxetine 20 mg capsule,delayed 20 mg PO DAILY 11/11/23 03/21/24 History release acetaminophen 500 mg capsule 500 mg PO Q6H PRN fever or pain 11/25/23 01/04/24 History xyctsvre-lvdx-wtfr 8 mg-folic 400 1 tab PO DAILY 12/01/23 03/21/24 History mcg-K 50 mcg-lutein 300 mcg tablet ([facility]) warfarin 4 mg tablet 4 mg PO DAILY #90 TABLETS 12/30/23 03/21/24 Rx amiodarone 200 mg tablet 200 mg PO DAILY #90 TABLETS 01/03/24 03/21/24 Rx camphor 3.1 %-methyl salicylate 10 1 patch topical DAILY PRN pain 01/05/24 01/05/24 History %-menthol 6 % topical patch (Salonpas) lidocaine-prilocaine 2.5 %-2.5 % 1 applic topical ONCE PRN port 01/12/24 Unknown Rx topical cream access 30 days #30 grams albuterol sulfate 90 mcg/actuation 2 puff inhalation Q4H PRN 03/09/24 Unknown History aerosol inhaler shortness of breath or wheezing ondansetron HCl 8 mg tablet 8 mg PO Q12H PRN nausea 03/09/24 Unknown History oxycodone 5 mg tablet 5 mg PO Q6H PRN pain 03/09/24 Unknown History nitrofurantoin macrocrystal 100 mg 100 mg PO BID #10 caps 03/18/24 03/21/24 Rx capsule Allergy/AdvReac Type Severity Reaction Status Date / Time No Known Allergies Allergy Verified 03/22/24 08:49 Family History Father , 58 Lung cancer Mother Breast cancer Sister Breast cancer Surgical History History of oral surgery Amputated toe of left foot History of excision of lesion H/O: hammer toe correction S/P breast lumpectomy History of colonoscopy (~2018) S/P AAA (abdominal aortic aneurysm) repair History of hysterectomy H/O mastectomy Social History household members: spouse Smoking Status: Former smoker quit date: 03/15/12 pack-years: 39 alcohol intake: current alcohol intake frequency: a few times a week Alcohol type: beer and wine substance use type: does not use ROS ROS Narrative Admission Review of Systems: CONSTITUTIONAL: No weight loss, fever, chills, + weakness or fatigue. HEENT: + Various abrasions, ecchymoses including in the upper thorax/head following recent falls Eyes: No visual loss, blurred vision, double vision or yellow sclerae. Ears, Nose, Throat: No hearing loss, sneezing, congestion, runny nose or sore throat. SKIN: No rash or itching, lesions, wounds except + Various abrasions, ecchymoses including in the upper thorax/head following recent falls CARDIOVASCULAR: + Chronic edema. No chest pain, chest pressure or chest discomfort, palpitations, orthopnea, syncopal events. RESPIRATORY: + Chronic shortness of breath, cough with occasional sputum. No wheezing, hemoptysis. GASTROINTESTINAL: No anorexia, nausea, vomiting or diarrhea, abdominal pain, melena, BRBPR. GENITOURINARY: No dysuria, frequency, urgency or retention. NEUROLOGICAL: + Frequent falls. No headache, dizziness, syncope, paralysis, ataxia, numbness or tingling in the extremities, focal weakness, change in bowel or bladder control, seizure. MUSCULOSKELETAL: + muscle, back pain, joint pain or stiffness. HEMATOLOGIC: + Chronic anemia, easy bleeding/bruising. LYMPHATICS: No enlarged nodes. No history of splenectomy. PSYCHIATRIC: + History of anxiety and depression. ENDOCRINOLOGIC: No reports of sweating, cold or heat intolerance. No polyuria or polydipsia. ALLERGIES: No history of asthma, hives, eczema or rhinitis. Vital Signs Vital Signs Vital Signs: 03/22/24 10:00 03/22/24 10:39 03/22/24 12:00 Temperature 96.9 F L Temperature Source Temporal Pulse Rate 84 Respiratory Rate 20 H Respiratory Effort Normal Respiratory Depth Normal Respiratory Pattern Normal Blood Pressure 105/60 126/88 H Blood Pressure Mean 75 100 Pulse Ox 99 95 Oxygen Delivery Method Nasal Cannula Nasal Cannula Oxygen Flow Rate (L/min) 3 3 03/22/24 14:00 Temperature 97.5 F L Temperature Source Oral Pulse Rate 90 Respiratory Rate 22 H Respiratory Effort Respiratory Depth Respiratory Pattern Blood Pressure 130/62 H Blood Pressure Mean 84 Pulse Ox 94 Oxygen Delivery Method Nasal Cannula Oxygen Flow Rate (L/min) 3 Weight Weight: 149 lb 9.6 oz Body Mass Index (BMI) 26.4 Physical Exam Narrative Physical Examination: General: Awake, alert, oriented x 3 and cooperative, seated upright in ED bed, fatigued, denies any complaints at this time, eating. Skin: Normal color, normal turgor, no icterus, no cyanosis except very staged ecchymoses, abrasions especially with recent falls. HEENT: AT/NC, EOMI, PERRLA, MMM, no carotid bruits or JVD noted. Lungs: Diminished, greater bases, mildly coarse, no evidence of any distress, no rales, ronchi or wheezing. Heart: Regular rate and rhythm; no gallop, rub audible. Abdomen: Soft, NTTP, ND, hyperactive BS, no appreciated HSM. Extremities: No cyanosis, no clubbing, mild ankle not markedly pitting edema Neurological: Patient awake, alert, oriented as noted, cognitive function intact; pupils equally reactive to light and accommodation, cranial nerves grossly normal, moving all 4 extremities, no focal deficits, strength moderately to severely globally decreased. Psychiatric: Affect appears fatigued otherwise normal, no acute evidence of depressive or anxiety feelings but does have underlying history. Results Lab / Micro Data 03/22/24 10:46 Labs: Laboratory Results - last 24 hr 03/22/24 10:46: Sodium 143, Potassium 4.1, Chloride 109 H, Carbon Dioxide 25.0, Anion Gap 9, BUN 12, Creatinine 1.02, Estim Creat Clear Calc 44.75, Est GFR (MDRD) Af Amer 68, Est GFR (MDRD) Non-Af 56 L, BUN/Creatinine Ratio 11.8, Glucose 93, Lactic Acid 1.3, Calcium 9.1, Blood Type B POSITIVE, Antibody Screen NEGATIVE Imaging Radiology Impression Brain MRI 03/22/24 10:50 IMPRESSION: 1. No MRI evidence of acute or subacute ischemic infarct or intracranial metastatic disease. 2. Multiple chronic periventricular white matter ischemic changes in both cerebral hemispheres. 3. Mixed signal intensity of the old cystic infarct in the left corpus striatum consisting of T1 hypointensity and T1 hyperintensity without magnetic susceptibility on the GRE sequence. This did not enhance with IV contrast and this was also present previously. The mixed signal intensity is of undetermined etiology but is overall unchanged. The T1 hyperintensity is alejandra to cortical laminar necrosis seen on remote ischemic infarcts. Electronically Signed: Nawaf Orozco MD at 14:52 EST , Hand X-Ray 03/22/24 11:11 IMPRESSION: No acute fracture or dislocation identified in the right hand. Soft tissue swelling with mild inflammatory or other erosive arthritis. Electronically Signed: Zehra Last MD at 11:48 EST , Assessment & Plan Assessment/Plan (1) Adult failure to thrive: PLAN: Plan The patient is a 73 y/o F w/ PMHx: CKD stage II per GFR trending, Chronic macrocytic anemia and thrombocytopenia secondary to underlying cancer and treatments however does have upcoming endoscopies with Dr. 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 #1. Serial mechanical falls potentially complicated by recent 03/16/2024 acute E. coli urinary tract infection and possibly by evidence of previous remote ischemic infarcts with increasing debility, malaise, inability to safely return to home: Will admit to medical surgical floor, maintain on fall precautions, repeat urine culture noted most recently 03/21/2024 with no marked colony-forming unit growth thus nitrofurantoin successfully treating recent E. coli infection, MRI of the brain with previous stroke evident but no acute findings, will obtain chest x-ray PA and lateral given patient's mildly coarse on examination although certainly could be chronic, will obtain procalcitonin, trend CBC, CMP, magnesium and phosphorus pending also given ongoing chemotherapy use, continue evaluate #2 as noted, continue elevation R hand elevation/icing as needed with no acute injury noted on plain films in the ED. PT/OT/case management consulted for discharge planning with plan for likely skilled facility needs. #2. Acute on Chronic macrocytic anemia and thrombocytopenia: Suspected secondary to underlying cancer and treatments in addition to ongoing chronic anticoagulation given PAF and high risk certainly for VTE. Recent 03/22/2024 hemoglobin 7.0, MCV 104.8 per oncology, vacillates between 7 and 8 however this is the lowest she has been recently. 2 unit PRBC initiated per ED physician. Will obtain vitamin B12 and folic acid level as well as guaiac however per discussion with patient and family she has upcoming endoscopies with Dr. Alberto on 03/31/2024. #3. 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: Per review of history patient with 08/12/2022 direct laryngoscopy, esophagoscopy with floor the mouth excision with eventual EBUS with biopsies demonstrating nodes consistent with squamous cell carcinoma the left lower lobe with recommendation against surgery per thoracic surgery with follow-up PET/CT at [facility] 09/14/2022 with a large hypermetabolic mass in the left lower lobe extending pleura as well as left hilum, adjacent small nodules, hypermetabolic mediastinal and left hilar nodes, hypermetabolic nodule in the right upper lobe concerning all for metastatic disease, initiated 09/23/2022 on carboplatin/Taxol in addition to radiation complicated by pneumonitis with PET scans with ongoing evidence of metastatic disease with palliative radiation therapy to the left chest most recently 12/03/2023 through 01/02/2024 with again resumption of chemotherapy with Keytruda, carboplatin and Abraxane with planned cycle 4 carboplatin, Abraxane, pembrolizumab. Magnesium and phosphorus levels requested. #4. Recent E. Coli UTI (Cx 03/16/24), additional repeat UCx w/ no marked CFU of note: Reviewed culture from 03/21/2024 and noted gram-positive cocci possible Enterococcus species however this was less than 1000 colony-forming units in addition to organism to gram-negative garry lactose chief nursing executive also less than the thousand colony-forming units. Prior to this patient with recent 03/16/23 UCx w/ >100,000 E. Coli infection treated with course NF. #5. PAF: We will continue patient home amiodarone and metoprolol with hold parameters in addition to Coumadin with INR trending with hold parameters and as noted low threshold to reverse/hold if any implication of GI bleed for etiology of worsened anemia. #6. AAA: Most recent imaging noted 02/21/2023 with abdominal aorta ultrasound with noted patent endograft and no evidence of any endoleak, encourage continued outpatient follow-up with vascular surgery as previously arranged. #7. Chronic Kidney Disease Stage II per GFR trending: Admission BUN/Cr 02/12., GFR 56 but primarily GFR greater than 60 per review of previous labs, baseline renal function primarily 1.0-1.4, repeat BMP in AM. #8. History left breast ductal carcinoma: Status postmastectomy, currently considered in remission, encourage continued follow-up as previously arranged. #9. History CVA: As noted above MRI with evidence of previous remote ischemic infarcts, will continue Coumadin with INR trending with hold parameters as needed, not on statin therapy, continue hypertensive regimen with hold parameters, no diabetic history. #10. Former tobacco use: Encourage continued tobacco cessation. #11. Anxiety and depression: We will continue patient home duloxetine regimen. #12. Gout: We will continue patient allopurinol regimen. #13. DVT prophylaxis: Will continue patient on Coumadin with INR trending with hold parameters. If any implication of GI bleed as noted above evaluation ongoing will reverse if needed/hold. #14. CODE status: Patient HCPOA is her who is present and living will is currently in place. Discussed CODE status at length including difference between FULL code, DNR-CCA and DNR-CC status. Following discussions about the differences in these status, requested DNR-CCA with allowance of short term intubation. Advanced Care Planning Face to Face Time: 16 minutes. Charges/Coding Visit Charges Inpatient E&M: 23323 Init Hosp L3 Procedures Hospitalists Procedures: 60710 Advncd Care Plan 30 Min
[2024-03-22 16:14] LABS: Phosphorus 3.9 mg/dL (2.5-4.9)
[2024-03-22] MEDS: oxyCODONE 5 MG Tablet PO (18:21)
[2024-03-22] MEDS: Acetaminophen 325 MG Tablet 650 MG PO (18:21)
--- NOTE | 2024-03-22 19:37 | NURSING ---
3 SMALL SKIN TEARS TO RT GILMORE IN CLOSE PROXIMITY. CLEANSED W/NS, ADAPTIC COVERED W/4X4 AND WRAPPED IN KERLEX
[2024-03-22] MEDS: Gabapentin 300 MG Capsule PO (20:16)
[2024-03-22] MEDS: Acyclovir 200 MG Capsule 400 MG PO (20:16)
[2024-03-22 21:43] LABS: Procalcitonin 0.23 ng/mL (0.00-0.09)
--- NOTE | 2024-03-22 22:05 | RAD_ITS ---
INDICATION: Cough EXAMINATION/TECHNIQUE: X-RAY - XR Chest 2 Views COMPARISON: 03/02/2024. FINDINGS: Bilateral interstitial and airspace opacities. Near total collapse of the left lung. Tortuous and calcified thoracic aorta. The heart is mildly enlarged. Left-sided chest port. Large left pleural effusion. Small right pleural effusion. No pneumothorax. Degenerative changes of the thoracic spine. RAD/Chest PA and Lateral IMPRESSION: Bilateral interstitial and airspace opacities may represent edema and/or infection. Near total collapse of the left lung. Large left pleural effusion. Small right pleural effusion. Electronically Signed: Marco Antonio Nickerson MD at 23:30 EST ,
[2024-03-23] VITALS (11 sets, daily range): BP systolic 114–154; BP diastolic 59–89; PULSE 82–102; RESP 16–18; TEMP 36.4–37.2; O2SAT 93–99; BMI 26.4
[2024-03-23 04:56] LABS: Hematocrit 27.3 % (37-47); Hemoglobin 8.7 g/dL (12.0-15.0); Mean Corp Hgb Conc 31.9 g/dL (32-36); Mean Corpuscular Hgb 30.5 pg (27.0-32.0); Mean Corpuscular Volume 95.8 fL (81-99); Mean Platelet Vol. 9.2 fl (6.2-12.0); POSITIVE COUNT YES; POSITIVE DIFFERENTIAL YES; POSITIVE MORPHOLOGY YES; Platelet Count 378 K/mm3 (150-450); RBC Distribution Width CV 26.6 % (11.6-14.6); RBC Distribution Width SD 82.2 fl (35.1-43.9); Red Blood Count 2.85 M/mm3 (4.2-5.4); White Blood Count 4.8 K/mm3 (4.4-11.0)
[2024-03-23 05:04] LABS: Differential Indicated MANUAL DIFF
[2024-03-23 05:11] LABS: Prothrombin Time (Protime)PT. 31.5 SECONDS (11.7-14.9)
[2024-03-23 05:22] LABS: Vitamin B12 1452 pg/mL (211-911)
[2024-03-23 05:56] LABS: ALB/GLOB Ratio 0.8 RATIO (0.9-2.4); AST(SGOT) 19 U/L (15-37); Alanine Aminotransfer ALT/SGPT 16 U/L (13-56); Albumin, Serum 2.3 g/dL (3.2-5.0); Alkaline Phosphatase 94 U/L (45-117); Anion Gap 3 (5-15); BUN 6 mg/dL (7-18); Calcium,Total 8.4 mg/dL (8.5-10.1); Chloride 110 mmol/L (98-107); Creatinine, Serum 0.67 mg/dL (0.55-1.02); EST Glomerular Filtration Rate 92 mL/min (>60); Est Glom Filt Rate - Afr Amer 111 mL/min (>60); Estimated Creatinine Clearance 57.04 ml/min; Glucose 87 mg/dL (74-106); Potassium 3.4 mmol/L (3.5-5.1); Protein, Total 5.3 g/dL (6.4-8.2); Sodium Level 142 mmol/L (136-145)
[2024-03-23 06:21] LABS: Neutrophil-Band 10 % (0-5); Neutrophil-Segmented 63 % (47-70); Total Cells Counted 100 (MANUAL DIFF)
[2024-03-23 06:22] LABS: Basophil 2 % (0-1); Differential Comment SCANNED; Lymphocyte 10 % (19-41); Monocyte 13 % (0-10); Myelocyte 1 % (0-0); Promyelocyte 1 % (0-0)
[2024-03-23 06:23] LABS: Anisocytosis 2+; Stomatocyte 2+
[2024-03-23 06:24] LABS: Absolute Lymphocyte Count 0.47 X10^3/uL (0.83-4.51); Absolute Neutrophil Count 3.5 X10^3/uL (2.0-7.7)
[2024-03-23] MEDS: Ensure Plus High Protein 120 ML LIQUID PO (09:33)
[2024-03-23] MEDS: Allopurinol 100 MG Tablet PO (09:33)
[2024-03-23] MEDS: Acyclovir 200 MG Capsule 400 MG PO ×2 (09:34→23:08)
[2024-03-23] MEDS: Potassium Chloride Oral Tablet 20 MEQ PO (09:34)
[2024-03-23] MEDS: Amiodarone 200 MG Tablet PO (09:34)
[2024-03-23] MEDS: Ascorbic Acid 500 MG Tablet PO (09:34)
[2024-03-23] MEDS: DULoxetine Hcl 20 MG Capsule PO (09:34)
[2024-03-23] MEDS: Gabapentin 100 MG Capsule PO (09:37)
[2024-03-23] MEDS: Metoprolol(XL)Succ 50 MG Tablet PO (09:37)
[2024-03-23 10:03] LABS: Pathologist Review Reviewed
--- NOTE | 2024-03-23 10:57 | CASEMGMT ---
Addendum entered by Lucy Cleveland 03/23/24 12:51: Emailed oncology pt naviagator as well as oncology resource advocate that pt has been admitted to [facility] with dx. Original Note: Therapists eval'd pts and stated pt is agreeable to SNF at this time. LUSIA GONZALES Assessment: Face to Face with pt for initial transition planning/care coordination assessment. LUISA GONZALES introduced self and role at [facility], pt voices understanding and consents to assessment. Pt is A&O x4 and answers all questions appropriately at this time. Pt lying in bed in no distress with at bedside. Pt and seem to give different answers on pt abilities at home. Care providers, pharmacy, and demographics verified/updated. Admitting Dx: Falls, Adult FTT, acute on chronic anemia Strata Score: 3 PCP:Adelfo Specialists:ANISHA Shaw; Remy; Yary, onc; janie Alexander onc Preferred Pharmacy: [facility] [place] Insurance: [employer] Prescription Benefit: yes LNOK: Abhi Guerreroz, ; Veronica Latham, dtr Living Arrangements: Pt lives with with a FFSU and one step to enter with a rail. Pt reports she is I in bathing and dressing, states pt needs assistance. Pt prepares meals, does laundry and gets groceries. Pt states that pt has fallen 5 times in less than a 72 hour period at home. Transportation: Pt transports pt to medical appts. DME:Pt has oxygen through [employer] with portability. INGA Alfaro HHC/SNF: Pt is active with [facility] HHC SN and PT, pt denies SNF stays. Pt and report pt is not functioning well at home and are agreeable to s/t rehab. Pt states that the pt has a friend who is at [facility] in [place]. Pt would like to see a list of options. Updated SW. Pt states no further concerns/needs. CM to follow. Advised pt to ask CM if any further questions/concerns/needs arise, voices understanding. Pt Goal: SNF Plan: SNF pending acceptance and precert Natanael MORAN CM
--- NOTE | 2024-03-23 11:16 | CASEMGMT ---
Addendum entered by Delfina Martinez 03/23/24 11:21: List delivered to pt. She was asked to choose top 3 choices. Delfina Martinez DC Planning Asst. Original Note: Discharge Planning A list of SNF providers including quality and resource use data and consistent with the patient's preferred geographic region, medical needs, and insurance network was created in [employer] Guide.? This list was provided to the SW. Delfina Martinez, Discharge Planning Asst.
--- NOTE | 2024-03-23 11:45 | CASEMGMT ---
Discharge Planning Pt asked for referrals to be make to 1) TCU, 2) [facility] and [facility]. SW updated and asked to make referral to TCU. Delfina Martinez DC Planning Asst.
[2024-03-23] MEDS: oxyCODONE 5 MG Tablet PO (12:43)
[2024-03-23] MEDS: Acetaminophen 325 MG Tablet 650 MG PO ×2 (12:43→21:07)
--- NOTE | 2024-03-23 12:47 | CASEMGMT ---
Addendum entered by Janneth Lane 03/23/24 16:37: TRENT spoke with kier drier, Pauly, to discuss pt case. Pauly provided education that pt would need to be in a strengthened and stable state prior to additional chemo/immune therapy. TRENT met with pt and spouse to discuss their understanding of chemo treatments. Pt spouse reports that he had spoken with oncology and better understands the parameters of pt receiving chemo after that conversation. Pt and spouse are agreeable to completing rehab prior to considering additional chemo. SW resubmitted referral to TCU for review. SW provided education on referral process and pre-authorization process. Pt spouse reports that he will want pt transported to SNF if needed. SW will remain available to follow for discharge needs. GIANCARLO King Addendum entered by Janneth Lane 03/23/24 14:50: Social Work- TRENT met with pt and family to update that TCU unable to accept. Pt family would like to remove [facility] from list, but add [facility]. Pt and family would like to see if [facility] or [facility] would allow chemo while at the facility. [facility] notified. TRENT remains available to follow. GIANCARLO King Original Note: Social Work- TRENT completed referral to TCU. TCU would be unable to allow chemo while pt was on unit. TRENT updated pt. Pt reports that chemo is on hold due to blood work, but pt would want to complete chemo if able. Pt requests that we ask alternate facilities if they would allow chemo. TRENT updated [facility] of pt request. TRENT provided collaboration with RNCM to update oncology navigators. TRENT remains available to follow. GIANCARLO King
[2024-03-23] MEDS: Lidocaine 5% Patch 1 PATCH TOPICAL (13:34)
[2024-03-23] MEDS: Albuterol 2.5 MG/3 ML VIAL.NEB. INHALATION (14:16)
--- NOTE | 2024-03-23 14:38 | CASEMGMT ---
Addendum entered by Delfina Martinez 03/24/24 09:05: Discharge Planning Pt has been accepted by TCU. [facility] referral cancelled. [facility] declined. Delfina Martinez DC Planning Asst. Original Note: Discharge Planning Referral sent to [facility] and [facility]. Asked if chemo cost is able to be carved out. Awaiting response. Delfina Martinez DC Planning Asst.
--- NOTE | 2024-03-23 14:41 | CHAPLAIN ---
Type of Pastoral Visit _x__ Initial Visit ___ Follow-up Visit ___ On-call Visit ___ General Patient Visit ___ Spiritual Assessment ___ Family Conference ___ Bereavement ___ Rapid Response ___ Code Blue ___ Other (describe below) Pastoral Care Referral From _x__ Patient ___ Family ___ Nurse ___ Physician ___ Project Internship ___ Superintendent Of Generation ___ Other (describe below) Sacrament/Intervention _x__ Active listening ___ Anointing ___ Gnosticism ___ Bereavement ___ Communion ___ Yolanda exploration ___ ___ Life review _x__ Prayer ___ Reconciliation ___ Sacrament of Sick _x__ Supportive presence ___ Wedding ___ Other (describe below) Pastoral Comments patient is in the bed and looking frail since the last meeting with her; spouse is in the room but leaves at this time; offer of support and pt acknowledges her relapse of cancer, the ongoing treatments, this current debility due to chemo, and her desire to 'beat this thing and live'; pt is asked about coping ability and resources for her help; pt is of the [employer] yolanda and welcomes a prayer; upon leaving the room this rn acute care found the spouse in the hallway and he is offered support too; spouse denies needs of anything
--- NOTE | 2024-03-23 17:44 | CT_ITS ---
EXAM: CT CHEST WITHOUT INTRAVENOUS CONTRAST CLINICAL INDICATION: left pleural effusion, possible left atelectasis TECHNIQUE: Helically acquired images were obtained of the chest without intravenous contrast. This CT exam was performed using one or more of the following dose reduction techniques: automated exposure control, adjustment of the mA and/or kV according to patient size, and/or use of iterative reconstruction technique. COMPARISON: CT chest, 03/03/2024 FINDINGS: LUNGS AND PLEURAL SPACES: Moderate to large bilateral pleural effusions slightly larger on the left with associated right lower lobe, left upper lobe, and left lower lobe airspace disease which may be part of atelectasis and/or pneumonia. The right-sided disease appears worse compared to the prior examination. The left side appears stable. Spiculated pleural-based nodule measuring approximately 8 mm in the right upper lobe is unchanged. HEART: Coronary artery calcifications and/or stents. Heart size is normal. No pericardial effusion. MEDIASTINUM: No significant abnormality. No mediastinal or hilar adenopathy. Esophagus is unremarkable. No hiatal hernia. THYROID: No significant abnormality. No thyroid lesions. BONES/JOINTS: Diffuse osseous degenerative changes. No suspicious lytic or blastic abnormality. VASCULATURE: Atherosclerosis of the aorta. Partially visualized apparent stent graft in the infrarenal abdominal aorta. CT/Chest without Contrast IMPRESSION: 1. Moderate to large bilateral pleural effusions slightly larger on the left with associated right lower lobe, left upper lobe, and left lower lobe airspace disease which may be part of atelectasis and/or pneumonia. The right-sided disease appears worse compared to the prior examination. The left side appears stable. 2. Spiculated pleural-based nodule measuring approximately 8 mm in the right upper lobe is unchanged. Fleischner Society Guidelines (MacMahon, et al. Radiology 2017; 284(1):228-43) recommend a follow-up chest CT in 6-12 months in patients with a low or high risk of malignancy. Electronically Signed: Miguel Overton DO at 20:05 EST ,
--- NOTE | 2024-03-23 17:48 | PN.HOSP_ITS ---
Reason for Visit Reason for Visit: Diagnoses Adult failure to thrive (03/22/24) Subjective Subjective Patient was seen and examined today, patient had a chest x-ray done last evening that showed increased left pleural effusion, I feel his chest x-ray was shot a little light, I have elected to order a CT of the chest to further delineate how much fluid the patient has in her left hemithorax. Discharge planning is trying to find a nursing facility which will allow her to undergo chemotherapy, I doubt this will happen as most nursing homes will not accept the patient getting active chemotherapy. Objective Data Objective Data Vital Signs: Vital Signs Temp Pulse Resp BP Pulse Ox O2 Del Method O2 Flow Rate 97.6 F L 88 16 142/75 H 96 Nasal Cannula 3 03/23/24 17:42 03/23/24 17:42 03/23/24 17:42 03/23/24 17:42 03/23/24 17:42 03/23/24 17:45 03/23/24 17:45 Oxygen Flow Rate (L/min) 3 Oxygen Delivery Method Nasal Cannula Weight: 67.85 kg Body Mass Index (BMI) 26.4 Intake & Output: Intake and Output for Last 24 Hours 03/21/24 03/22/24 03/23/24 23:59 23:59 23:59 Intake Total 500 / 500 1050 / 1050 Output Total 450 / 450 Balance 500 / 500 600 / 600 Lab / Micro Data 03/23/24 04:41 03/23/24 04:41 Labs: Laboratory Results - last 24 hr 03/22/24 10:46: Crossmatch See Detail 03/22/24 21:10: Procalcitonin 0.23 H 03/23/24 04:41: WBC 4.8, RBC 2.85 L, Hgb 8.7 L, Hct 27.3 L, MCV 95.8 D, MCH 30.5, MCHC 31.9 L D, RDW Std Deviation 82.2 H, RDW Coeff of Blanca 26.6 H, Plt Count 378, MPV 9.2, Neut % (Auto) Not Reportable, Absolute Neuts (auto) 3.5, A bsolute Lymphs (auto) 0.47 L, Total Counted 100, Neutrophils % (Manual) 63, Band Neutrophils % 10 H, Lymphocytes % (Manual) 10 L, Monocytes % (Manual) 13 H, B asophils % (Manual) 2 H, Myelocytes % 1 H, Promyelocytes % 1 H, Differential Comment SCANNED, Diff Path Review Reviewed, Anisocytosis 2+, Stomatocytes 2+, PT 31.5 H, INR 3.0, Sodium 142, Potassium 3.4 L, Chloride 110 H, Carbon Dioxide 28.0, Anion Gap 3 L, BUN 6 L, Creatinine 0.67, Estim Creat Clear Calc 57.04, Est GFR (MDRD) Af Amer 111, Est GFR (MDRD) Non-Af 92, BUN/Creatinine Ratio 9.0 L, Glucose 87, Calcium 8.4 L, Total Bilirubin 0.40, AST 19, ALT 16, Alkaline Phosphatase 94, Total Protein 5.3 L, Albumin 2.3 L, Globulin 3.0, A lbumin/Globulin Ratio 0.8 L, Vitamin B12 1452 H, Folate 21.20 Radiography Diagnostic Testing: Radiology Impression Chest X-Ray 03/22/24 22:05 IMPRESSION: Bilateral interstitial and airspace opacities may represent edema and/or infection. Near total collapse of the left lung. Large left pleural effusion. Small right pleural effusion. Electronically Signed: Marco Antonio Nickerson MD at 23:30 EST , Physical Exam Const alert, oriented x3 and no apparent distress General Appearance: cooperative, well kempt and well developed Orientation / Consciousness: awake, oriented to person, oriented to place and oriented to time HEENT normocephalic, head/scalp atraumatic and moist oral mucous membranes Eyes PERRL, EOMs intact bilaterally and conjunctivae normal Neck supple, no JVD, thyroid normal and no carotid bruits General: trachea midline Resp normal respiratory effort, no retractions and no use of accessory muscles Resp Narrative: Decreased breath sounds over the left lung fernandez Auscultation: Negative for rales, rhonchi or wheezes Cardio regular rate, regular rhythm, S1 normal heart sound, S2 normal heart sound, no murmurs, no rub and no gallops GI normal to inspection, nondistended, normoactive bowel sounds, soft to palpation, non-tender and non-distended Extremity no clubbing, cyanosis or edema Skin no rashes or lesions noted General Skin Exam: no breakdown Neuro oriented x3, CN's II-XII intact bilaterally, moves all extremities, no focal motor deficits and no sensory deficits noted Sensorium / Orientation: awake and alert Speech: speech normal Psych affect normal Assessment & Plan Assessment/Plan (1) Anemia requiring transfusions: PLAN: Plan 1. Acute on chronic debility-PT and OT will continue to see the patient #2 acute on chronic anemia-etiology unclear, patient was given 2 units of packed red blood cells, patient is due to have an upper and lower endoscopy performed as an outpatient, her iron and B12 levels are normal. 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
[2024-03-23] MEDS: Gabapentin 300 MG Capsule PO (23:07)
[2024-03-24] VITALS (8 sets, daily range): BP systolic 118–151; BP diastolic 64–86; PULSE 90–107; RESP 17–20; TEMP 36.4–37.2; O2SAT 93–98; BMI 26.2
[2024-03-24 06:20] LABS: Hematocrit 30.6 % (37-47); Hemoglobin 9.6 g/dL (12.0-15.0); Mean Corp Hgb Conc 31.4 g/dL (32-36); Mean Corpuscular Volume 95.6 fL (81-99); Mean Platelet Vol. 9.5 fl (6.2-12.0); POSITIVE COUNT YES; POSITIVE DIFFERENTIAL YES; POSITIVE MORPHOLOGY YES; Platelet Count 448 K/mm3 (150-450); RBC Distribution Width CV 27.4 % (11.6-14.6); RBC Distribution Width SD 92.4 fl (35.1-43.9); White Blood Count 6.4 K/mm3 (4.4-11.0)
[2024-03-24] MEDS: Acetaminophen 325 MG Tablet 650 MG PO ×3 (06:46→21:14)
[2024-03-24 07:07] LABS: Differential Indicated MANUAL DIFF
[2024-03-24] MEDS: Albuterol 2.5 MG/3 ML VIAL.NEB. INHALATION (07:55)
[2024-03-24 07:59] LABS: Anisocytosis 2+; Lymphocyte 12 % (19-41); Monocyte 22 % (0-10); Neutrophil-Segmented 66 % (47-70); Nucleated Red Bld Cells,Manual 1 % (0-5); Total Cells Counted 100 (MANUAL DIFF)
[2024-03-24 08:00] LABS: Hypochromasia 1+; Platelet Estimate ADEQUATE (ADEQ); Polychromasia RARE
[2024-03-24 08:01] LABS: Absolute Lymphocyte Count 0.77 X10^3/uL (0.83-4.51); Absolute Neutrophil Count 4.2 X10^3/uL (2.0-7.7)
[2024-03-24] MEDS: Ensure Plus High Protein 120 ML LIQUID PO ×3 (09:26→18:09)
[2024-03-24] MEDS: Allopurinol 100 MG Tablet PO (09:26)
[2024-03-24] MEDS: DULoxetine Hcl 20 MG Capsule PO (09:27)
[2024-03-24] MEDS: Metoprolol(XL)Succ 50 MG Tablet PO (09:27)
[2024-03-24] MEDS: Amiodarone 200 MG Tablet PO (09:27)
[2024-03-24] MEDS: Potassium Chloride Oral Tablet 20 MEQ PO (09:27)
[2024-03-24] MEDS: Ascorbic Acid 500 MG Tablet PO (09:28)
[2024-03-24] MEDS: Acyclovir 200 MG Capsule 400 MG PO ×2 (09:28→21:15)
[2024-03-24] MEDS: oxyCODONE 5 MG Tablet PO ×2 (09:28→21:14)
[2024-03-24] MEDS: Lidocaine 5% Patch 1 PATCH TOPICAL (09:32)
--- NOTE | 2024-03-24 10:53 | CASEMGMT ---
Addendum entered by Janneth Lane 03/24/24 16:32: SW placed green sheet on chart in the event that pt would receive precert. Plan: TCU; pend precert GIANCARLO King Original Note: Social Work- SW met with pt and pt spouse to update that TCU accepted referral and started precert. Pt and spouse agreeable to d/c plans. SW remains available to follow. Plan: TCU; pending precert GIANCARLO King
[2024-03-24] MEDS: Gabapentin 100 MG Capsule PO (11:08)
[2024-03-24] MEDS: Furosemide 40 MG Tablet PO ×2 (12:30→18:09)
--- NOTE | 2024-03-24 14:54 | CASEMGMT ---
TC toya Delacruz at [facility], she is aware that pt is planning to dc to SNF.
--- NOTE | 2024-03-24 16:31 | PCM.PN.HOSP ---
Reason for Visit Reason for Visit: Diagnoses Anemia, unspecified (03/22/24) Adult failure to thrive (03/22/24) Subjective Subjective Patient was seen and examined today, chest CT yesterday showed bilateral pleural effusions, the left pleural effusion appears to be the same as previously noted, the right pleural effusion is a little bit larger. Patient's last echocardiogram in June of last year showed stage I diastolic dysfunction, I have elected to place the patient on Lasix to see if this will lessen the pleural effusions. Patient remains on 3 L of oxygen at this time Objective Data Objective Data Vital Signs: Vital Signs Temp Pulse Resp BP Pulse Ox O2 Del Method O2 Flow Rate 98.4 F 107 H 18 126/74 H 93 Nasal Cannula 3 03/24/24 12:38 03/24/24 12:38 03/24/24 12:38 03/24/24 12:38 03/24/24 15:21 03/24/24 12:41 03/24/24 15:21 Oxygen Flow Rate (L/min) 3 Oxygen Delivery Method Nasal Cannula Weight: 67.3 kg Body Mass Index (BMI) 26.2 Intake & Output: Intake and Output for Last 24 Hours 03/22/24 03/23/24 03/24/24 23:59 23:59 23:59 Intake Total 500 / 500 1425 / 1425 600 / 600 Output Total 450 / 450 100 / 100 Balance 500 / 500 975 / 975 500 / 500 Lab / Micro Data 03/24/24 05:37 03/23/24 04:41 Labs: Laboratory Results - last 24 hr 03/24/24 05:37: WBC 6.4, RBC 3.20 L, Hgb 9.6 L, Hct 30.6 L, MCV 95.6, MCH 30.0, MCHC 31.4 L, RDW Std Deviation 92.4 H, RDW Coeff of Blanca 27.4 H, Plt Count 448, MPV 9.5, Neut % (Auto) Not Reportable, Absolute Neuts (auto) 4.2, Absolute Lymphs (auto) 0.77 L, Total Counted 100, Neutrophils % (Manual) 66, Lymphocytes % (Manual) 12 L, Monocytes % (Manual) 22 H, Nucleated RBCs/100 WBC 1, Platelet Estimate ADEQUATE, Polychromasia RARE, Hypochromasia 1+, Anisocytosis 2+ Micro: Microbiology 03/24/24 11:01 Stool Stool Occult Blood (LATONIA) - Final Radiography Diagnostic Testing: Radiology Impression Chest CT 03/23/24 17:44 IMPRESSION: 1. Moderate to large bilateral pleural effusions slightly larger on the left with associated right lower lobe, left upper lobe, and left lower lobe airspace disease which may be part of atelectasis and/or pneumonia. The right-sided disease appears worse compared to the prior examination. The left side appears stable. 2. Spiculated pleural-based nodule measuring approximately 8 mm in the right upper lobe is unchanged. Fleischner Society Guidelines (MacMahon, et al. Radiology 2017; 284(1):228-43) recommend a follow-up chest CT in 6-12 months in patients with a low or high risk of malignancy. Electronically Signed: Miguel Overton DO at 20:05 EST , Physical Exam Narrative alert, oriented x3 and no apparent distress General Appearance: cooperative, well kempt and well developed Orientation / Consciousness: awake, oriented to person, oriented to place and oriented to time HEENT normocephalic, head/scalp atraumatic and moist oral mucous membranes Eyes PERRL, EOMs intact bilaterally and conjunctivae normal Neck supple, no JVD, thyroid normal and no carotid bruits General: trachea midline Resp normal respiratory effort, no retractions and no use of accessory muscles Resp Narrative: Decreased breath sounds over the left lower lung field and the right lung base Auscultation: Negative for rales, rhonchi or wheezes Cardio regular rate, regular rhythm, S1 normal heart sound, S2 normal heart sound, no murmurs, no rub and no gallops GI normal to inspection, nondistended, normoactive bowel sounds, soft to palpation, non-tender and non-distended Extremity no clubbing, cyanosis or edema Skin no rashes or lesions noted General Skin Exam: no breakdown Neuro oriented x3, CN's II-XII intact bilaterally, moves all extremities, no focal motor deficits and no sensory deficits noted Sensorium / Orientation: awake and alert Speech: speech normal Psych affect normal Assessment & Plan Assessment/Plan (1) Debility: (2) Anemia requiring transfusions: PLAN: Plan 1. Acute on chronic debility-PT and OT will continue to see the patient, we are awaiting approval for the patient to go to a custodial facility for short-term rehab #2 acute on chronic anemia-etiology unclear, patient was given 2 units of packed red blood cells, patient is due to have an upper and lower endoscopy performed as an outpatient, her iron and B12 levels are normal. CBC today showed a hemoglobin of 9.6 which appears to be stable at this time. 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
[2024-03-24] MEDS: Gabapentin 300 MG Capsule PO (21:14)
[2024-03-25] VITALS (7 sets, daily range): BP systolic 106–127; BP diastolic 62–80; PULSE 91–101; RESP 17–22; TEMP 36.7–37; O2SAT 92–100; BMI 26.2
[2024-03-25] MEDS: Acetaminophen 325 MG Tablet 650 MG PO (02:55)
[2024-03-25] MEDS: Potassium Chloride Oral Tablet 20 MEQ PO (10:52)
[2024-03-25] MEDS: Ascorbic Acid 500 MG Tablet PO (10:52)
[2024-03-25] MEDS: Metoprolol(XL)Succ 50 MG Tablet PO (10:52)
[2024-03-25] MEDS: Allopurinol 100 MG Tablet PO (10:53)
[2024-03-25] MEDS: Furosemide 40 MG Tablet PO ×2 (10:53→17:14)
[2024-03-25] MEDS: DULoxetine Hcl 20 MG Capsule PO (10:53)
[2024-03-25] MEDS: Acyclovir 200 MG Capsule 400 MG PO ×2 (10:53→22:34)
[2024-03-25] MEDS: Amiodarone 200 MG Tablet PO (10:53)
[2024-03-25] MEDS: Gabapentin 100 MG Capsule PO (10:56)
[2024-03-25] MEDS: oxyCODONE 5 MG Tablet PO (12:17)
[2024-03-25] MEDS: Ensure Plus High Protein 120 ML LIQUID PO (17:14)
--- NOTE | 2024-03-25 17:33 | PCM.PN.HOSP ---
Reason for Visit Reason for Visit: Diagnoses Anemia, unspecified (03/22/24) Other malaise (03/22/24) Adult failure to thrive (03/22/24) Subjective Subjective Patient was seen and examined today, she remains on 3 L of oxygen via nasal cannula. I will repeat patient's labs tomorrow. Objective Data Objective Data Vital Signs: Vital Signs Temp Pulse Resp BP Pulse Ox O2 Del Method O2 Flow Rate 98.0 F 91 22 H 127/80 H 99 Nasal Cannula 3 03/25/24 15:30 03/25/24 15:30 03/25/24 15:30 03/25/24 15:30 03/25/24 15:30 03/25/24 15:30 03/25/24 15:30 Oxygen Flow Rate (L/min) 3 Oxygen Delivery Method Nasal Cannula Weight: 67.2 kg Body Mass Index (BMI) 26.2 Intake & Output: Intake and Output for Last 24 Hours 03/23/24 03/24/24 03/25/24 23:59 23:59 23:59 Intake Total 1425 / 1425 600 / 600 Output Total 450 / 450 100 / 100 Balance 975 / 975 500 / 500 Lab / Micro Data 03/24/24 05:37 03/23/24 04:41 Micro: Microbiology 03/24/24 11:01 Stool Stool Occult Blood (LATONIA) - Final Physical Exam Narrative alert, oriented x3 and no apparent distress General Appearance: cooperative, well kempt and well developed Orientation / Consciousness: awake, oriented to person, oriented to place and oriented to time HEENT normocephalic, head/scalp atraumatic and moist oral mucous membranes Eyes PERRL, EOMs intact bilaterally and conjunctivae normal Neck supple, no JVD, thyroid normal and no carotid bruits General: trachea midline Resp normal respiratory effort, no retractions and no use of accessory muscles Resp Narrative: Decreased breath sounds over the left lower lung field and the right lung base Auscultation: Negative for rales, rhonchi or wheezes Cardio regular rate, regular rhythm, S1 normal heart sound, S2 normal heart sound, no murmurs, no rub and no gallops GI normal to inspection, nondistended, normoactive bowel sounds, soft to palpation, non-tender and non-distended Extremity no clubbing, cyanosis or edema Skin no rashes or lesions noted General Skin Exam: no breakdown Neuro oriented x3, CN's II-XII intact bilaterally, moves all extremities, no focal motor deficits and no sensory deficits noted Sensorium / Orientation: awake and alert Speech: speech normal Psych affect normal Assessment & Plan Assessment/Plan (1) Adult failure to thrive: PLAN: Plan 1. Acute on chronic debility-PT and OT will continue to see the patient, we are awaiting approval for the patient to go to a senior living facility for short-term rehab #2 acute on chronic anemia-etiology unclear, patient was given 2 units of packed red blood cells, patient is due to have an upper and lower endoscopy performed as an outpatient, her iron and B12 levels are normal. CBC today showed a hemoglobin of 9.6 which appears to be stable at this time. 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
[2024-03-25] MEDS: Gabapentin 300 MG Capsule PO (22:34)
[2024-03-26] VITALS (7 sets, daily range): BP systolic 108–124; BP diastolic 66–71; PULSE 81–90; RESP 20; TEMP 36.3–36.7; O2SAT 92–100; BMI 24.7
[2024-03-26 05:50] LABS: Hematocrit 36.1 % (37-47); Hemoglobin 11.1 g/dL (12.0-15.0); Mean Corp Hgb Conc 30.7 g/dL (32-36); Mean Corpuscular Hgb 30.3 pg (27.0-32.0); Mean Corpuscular Volume 98.6 fL (81-99); Mean Platelet Vol. 9.5 fl (6.2-12.0); POSITIVE COUNT YES; POSITIVE DIFFERENTIAL YES; POSITIVE MORPHOLOGY YES; Platelet Count 489 K/mm3 (150-450); RBC Distribution Width CV 26.4 % (11.6-14.6); RBC Distribution Width SD 94.3 fl (35.1-43.9); Red Blood Count 3.66 M/mm3 (4.2-5.4); White Blood Count 7.3 K/mm3 (4.4-11.0)
[2024-03-26 05:54] LABS: Differential Indicated MANUAL DIFF
[2024-03-26 06:29] LABS: Anion Gap 5 (5-15); BUN 24 mg/dL (7-18); BUN/Creat Ratio 34.4 RATIO (10-20); Calcium,Total 9.2 mg/dL (8.5-10.1); Chloride 95 mmol/L (98-107); EST Glomerular Filtration Rate 87 mL/min (>60); Est Glom Filt Rate - Afr Amer 106 mL/min (>60); Estimated Creatinine Clearance 55.36 ml/min; Glucose 89 mg/dL (74-106); Potassium 3.4 mmol/L (3.5-5.1); Sodium Level 138 mmol/L (136-145)
--- NOTE | 2024-03-26 08:00 | RAD_ITS ---
STUDY: XR Chest 1 View 03/26/2024 7:58 AM REASON FOR EXAM: Female, 73 years old. pleural effusions COMPARISON: 03/22/2024 TECHNIQUE: XR Chest 1 View FINDINGS: There is a large left pleural effusion. Left portacatheter. Small right pleural effusion. Left lung atelectatic collapse. Enlarged heart size. Normal mediastinum. Normal veronica. Prominent appearing increased interstitial lung markings. Normal visualized pulmonary arteries. There is atherosclerotic calcification of the aortic arch with tortuosity. There are diffuse degenerative changes of the visualized thoracic spine. There is degenerative osteoarthritis of the bilateral shoulders. There are no acute findings of the upper abdomen. RAD/Chest 1 View (Portable) IMPRESSION: Since the prior study, there is been minimal improvement. Electronically Signed: Aureliano Stokes MD at 14:26 EST ,
[2024-03-26 08:02] LABS: Basophil 1 % (0-1); Lymphocyte 14 % (19-41); Metamyelocyte 1 % (0-1); Monocyte 17 % (0-10); Myelocyte 2 % (0-0); Neutrophil-Segmented 64 % (47-70); Promyelocyte 1 % (0-0); Total Cells Counted 100 (MANUAL DIFF)
[2024-03-26 08:03] LABS: Anisocytosis 2+; Macrocytosis 1+; Polychromasia 1+
[2024-03-26 08:04] LABS: Reactive Lymphocyte 2+
[2024-03-26 08:05] LABS: Platelet Estimate SLT INC (ADEQ); Platelet Morphology GIAN
[2024-03-26 09:04] LABS: Absolute Lymphocyte Count 1.03 X10^3/uL (0.83-4.51); Absolute Neutrophil Count 4.7 X10^3/uL (2.0-7.7)
--- NOTE | 2024-03-26 09:48 | PCM.PN.HOSP ---
Reason for Visit Reason for Visit: Diagnoses Anemia, unspecified (03/22/24) Other malaise (03/22/24) Adult failure to thrive (03/22/24) Subjective Subjective Patient was seen and examined today, she is concerned because she has no appetite, I told her I would put her on an appetite stimulant. Patient had chest x-ray today which showed less right pleural effusion, left pleural effusion persist I think is probably loculated. Objective Data Objective Data Vital Signs: Vital Signs Temp Pulse Resp BP Pulse Ox O2 Del Method O2 Flow Rate 98.1 F 90 20 H 117/70 95 Nasal Cannula 3 03/26/24 05:31 03/26/24 05:31 03/26/24 05:31 03/26/24 05:31 03/26/24 08:08 03/26/24 08:08 03/26/24 08:08 Oxygen Flow Rate (L/min) 3 Oxygen Delivery Method Nasal Cannula Weight: 63.5 kg Body Mass Index (BMI) 24.7 Intake & Output: Intake and Output for Last 24 Hours 03/24/24 03/25/24 03/26/24 23:59 23:59 23:59 Intake Total 600 / 600 200 / 200 Output Total 100 / 100 Balance 500 / 500 200 / 200 Lab / Micro Data 03/26/24 04:01 03/26/24 04:01 Labs: Laboratory Results - last 24 hr 03/26/24 04:01: WBC 7.3, RBC 3.66 L, Hgb 11.1 L, Hct 36.1 L, MCV 98.6, MCH 30.3, MCHC 30.7 L, RDW Std Deviation 94.3 H, RDW Coeff of Blanca 26.4 H, Plt Count 489 H, MPV 9.5, Neut % (Auto) Not Reportable, Absolute Neuts (auto) 4.7, Absolute Lymphs (auto) 1.03, Total Counted 100, Neutrophils % (Manual) 64, Lymphocytes % (Manual) 14 L, Monocytes % (Manual) 17 H, Basophils % (Manual) 1, Metamyelocytes % 1, Myelocytes % 2 H, Promyelocytes % 1 H, Diff Path Review May foll, Reactive Lymphocytes 2+, Platelet Estimate SLT INC, Plt Morphology Comment YANIQUE, Polychromasia 1+, Anisocytosis 2+, Macrocytosis 1+, Sodium 138, Potassium 3.4 L, Chloride 95 L, Carbon Dioxide 38.0 H, Anion Gap 5, BUN 24 H, Creatinine 0.70, Estim Creat Clear Calc 55.36, Est GFR (MDRD) Af Amer 106, Est GFR (MDRD) Non-Af 87, BUN/Creatinine Ratio 34.4 H, Glucose 89, Calcium 9.2 Micro: Microbiology 03/24/24 11:01 Stool Stool Occult Blood (LATONIA) - Final Physical Exam Narrative alert, oriented x3 and no apparent distress General Appearance: cooperative, well kempt and well developed Orientation / Consciousness: awake, oriented to person, oriented to place and oriented to time HEENT normocephalic, head/scalp atraumatic and moist oral mucous membranes Eyes PERRL, EOMs intact bilaterally and conjunctivae normal Neck supple, no JVD, thyroid normal and no carotid bruits General: trachea midline Resp normal respiratory effort, no retractions and no use of accessory muscles Resp Narrative: Decreased breath sounds over the left lower lung field Auscultation: Negative for rales, rhonchi or wheezes Cardio regular rate, regular rhythm, S1 normal heart sound, S2 normal heart sound, no murmurs, no rub and no gallops GI normal to inspection, nondistended, normoactive bowel sounds, soft to palpation, non-tender and non-distended Extremity no clubbing, cyanosis or edema Skin no rashes or lesions noted General Skin Exam: no breakdown Neuro oriented x3, CN's II-XII intact bilaterally, moves all extremities, no focal motor deficits and no sensory deficits noted Sensorium / Orientation: awake and alert Speech: speech normal Psych affect normal Assessment & Plan Assessment/Plan (1) Debility: (2) Adult failure to thrive: PLAN: Plan 1. Acute on chronic debility-PT and OT will continue to see the patient, we are awaiting approval for the patient to go to a intermediate facility for short-term rehab #2 acute on chronic anemia-etiology unclear, patient was given 2 units of packed red blood cells, patient is due to have an upper and lower endoscopy performed as an outpatient, her iron and B12 levels are normal. CBC today showed a hemoglobin of 9.6 which appears to be stable at this time. 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 #7 decreased appetite-patient will be placed on Remeron starting tonight and attempt to stimulate appetite Total clinical time spent by myself addressing the patient's medical issues, reviewing all of her data, and collaborating with patient's care team: 35-minute Charges/Coding Visit Charges Inpatient E&M: 34876 Subs Hosp L2
[2024-03-26] MEDS: Ascorbic Acid 500 MG Tablet PO (09:54)
[2024-03-26] MEDS: Amiodarone 200 MG Tablet PO (09:55)
[2024-03-26] MEDS: Metoprolol(XL)Succ 50 MG Tablet PO (09:55)
[2024-03-26] MEDS: Allopurinol 100 MG Tablet PO (09:55)
[2024-03-26] MEDS: Ensure Plus High Protein 120 ML LIQUID PO ×3 (09:55→17:25)
[2024-03-26] MEDS: Furosemide 40 MG Tablet PO (09:55)
[2024-03-26] MEDS: Gabapentin 100 MG Capsule PO (09:56)
[2024-03-26] MEDS: Acyclovir 200 MG Capsule 400 MG PO ×2 (09:57→22:28)
[2024-03-26] MEDS: DULoxetine Hcl 20 MG Capsule PO (09:57)
[2024-03-26] MEDS: Potassium Chloride Oral Tablet 20 MEQ PO ×2 (10:04→17:25)
[2024-03-26] MEDS: Acetaminophen 325 MG Tablet 650 MG PO ×2 (11:01→17:28)
[2024-03-26] MEDS: oxyCODONE 5 MG Tablet PO ×2 (11:02→17:28)
[2024-03-26] MEDS: Lidocaine 5% Patch 1 PATCH TOPICAL (14:19)
[2024-03-26] MEDS: Mirtazapine 30 MG Tablet PO (22:28)
[2024-03-26] MEDS: Gabapentin 300 MG Capsule PO (22:28)
[2024-03-27 03:07] VITALS: BP 122/64; PULSE 101; RESP 20; TEMP 36.4; O2SAT 97
[2024-03-27] MEDS: guaiFENesin 10 ML UDC (200MG/10ML) 20 ML PO (03:13)
[2024-03-27] MEDS: Acetaminophen 325 MG Tablet 650 MG PO (03:13)
[2024-03-27] MEDS: oxyCODONE 5 MG Tablet PO (03:13)
[2024-03-27 05:24] VITALS: BMI 25.0
[2024-03-27 07:55] VITALS: BP 98/58; PULSE 101; RESP 16; TEMP 36.5; O2SAT 95
[2024-03-27] MEDS: Potassium Chloride Oral Tablet 20 MEQ PO (08:04)
--- NOTE | 2024-03-27 09:54 | CASEMGMT ---
Social Work- SW received notice precert has been obtained. Pt can d/c when medically ready. Plan: TCU; skilled level of care GIANCARLO King
[2024-03-27] MEDS: Allopurinol 100 MG Tablet PO (10:05)
[2024-03-27] MEDS: Amiodarone 200 MG Tablet PO (10:05)
[2024-03-27] MEDS: Acyclovir 200 MG Capsule 400 MG PO (10:05)
[2024-03-27] MEDS: DULoxetine Hcl 20 MG Capsule PO (10:06)
[2024-03-27] MEDS: Ascorbic Acid 500 MG Tablet PO (10:06)
[2024-03-27] MEDS: Furosemide 40 MG Tablet PO (10:07)
[2024-03-27] MEDS: Gabapentin 100 MG Capsule PO (10:09)
[2024-03-27 13:39] LABS: Pathologist Review Reviewed
--- NOTE | 2024-03-27 14:20 | PCM.TXEXTCAR ---
Diet Diet Order/Speech Therapy: 03/22/24 16:31 Diet: Regular - General Food consistency:: Regular Liquid Consistency:: Regular/Thin Type of Dietary Supplement:: Cricket Diet Comments: Cricket w/breakfast and dinner, please send ensure on all trays DC O2, CPAP, BIPAP needs Home O2 Discharge instructions: Yes Type of respiratory needs?: Oxygen Oxygen frequency: Continuous Continuous oxygen liters per minute: 3.5 L Wound(s) left elbow: Wound Type: abrasions from skin tear but skin removed in ed per RT GILMORE: Wound Type: Abrasion buttock: Wound Type: Pressure Injury Therapies Weight Bearing: Full weight bearing Physical Therapy: Eval and Treat Occupational Therapy: Eval and Treat Problem/Diagnosis (1) Debility: Status: Acute Code(s): R53.81 - Other malaise (2) Adult failure to thrive: Status: Acute Code(s): R62.7 - Adult failure to thrive (3) Metastatic bone tumor: Status: Acute Code(s): C79.51 - Secondary malignant neoplasm of bone Plan 1. Acute on chronic debility-PT and OT will continue to see the patient, we are awaiting approval for the patient to go to a group home facility for short-term rehab #2 acute on chronic anemia-etiology unclear, patient was given 2 units of packed red blood cells, patient is due to have an upper and lower endoscopy performed as an outpatient, her iron and B12 levels are normal. CBC today showed a hemoglobin of 9.6 which appears to be stable at this time. 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 #7 decreased appetite-patient will be placed on Remeron starting tonight and attempt to stimulate appetite Total clinical time spent by myself addressing the patient's medical issues, reviewing all of her data, and collaborating with patient's care team: 35-minute Allergies/Procedures Done in Hospital Allergies No Known Allergies Allergy (Verified 03/22/24 08:49) Procedures: None Type of Care/Length of Stay Estimated LOS: Convalescent Care Less Than 30 days Type of Care Needed: Skilled Rehab Potential: Good Prognosis: Good Additional Orders/Day of Discharge H&P will serve as current which was dated: 03/22/24 Day of Discharge: 03/27/24 Dietary and Speech Recommendations Dietitian Recommendations/Changes: Continue regular diet and 120ml ensure plus high protein TID with medpass. Will order cricket BID with breakfast and dinner to promote wound healing. Reviewed and approved by Kirstin Curry RDN, LD. Discharge Plan Admission Admit Date/Time: 03/22/24 15:29 Primary Reason for Your Visit: Generalized debility, anemia Attending Provider: Gelacio Trevino Primary Care Provider: Walter Emanuel [employer] Consulting Providers: Hetal Rodríguez Discharge Orders/Prescriptions Prescriptions: New acetaminophen 325 mg Tablet 650 mg PO Q4H PRN PRN (Reason: Fever, pain 1-12/22) Qty: 0 0RF albuterol sulfate 2.5 mg /3 mL (0.083 %) Solution For Nebulization 2.5 mg inhalation Q2H PRN PRN (Reason: Dyspnea, wheezing) Qty: 0 0RF ascorbic acid (vitamin C) 500 mg Tablet 500 mg PO DAILY Qty: 0 0RF furosemide 40 mg Tablet 40 mg PO DAILY Qty: 0 0RF mirtazapine 30 mg Tablet 30 mg PO QHS Qty: 0 0RF lidocaine 5 % Adhesive Patch,Medicated 1 patch topical DAILY PRN (Reason: pain) Qty: 0 0RF oxycodone 5 mg Tablet 5 mg PO Q6H PRN (Reason: pain) 2 Days Qty: 8 0RF sennosides-docusate sodium [Stimulant Laxative Plus] 8.6-50 mg Tablet 2 tab PO BID PRN PRN (Reason: Constipation) Qty: 0 0RF potassium chloride 20 mEq Tablet,Er Particles/Crystals 20 meq PO BIDCM Qty: 0 0RF warfarin [Jantoven] 4 mg Tablet 4 mg PO DAILY@1700 Qty: 0 0RF acyclovir 200 mg Capsule 400 mg PO BID Qty: 0 0RF Continued gabapentin 300 mg capsule 300 mg PO QHS allopurinol 100 mg tablet 100 mg PO DAILY duloxetine 20 mg capsule,delayed release(DR/EC) 20 mg PO DAILY gabapentin 100 mg capsule 100 mg PO DAILY metoprolol succinate 50 mg tablet extended release 24 hr 50 mg PO DAILY Qty: 90 3RF amiodarone 200 mg tablet 200 mg PO DAILY Qty: 90 3RF lidocaine-prilocaine 2.5-2.5 % cream 1 applic topical ONCE PRN (Reason: port access) 30 Days Qty: 30 2RF Discontinued acetaminophen 500 mg capsule 500 mg PO Q6H PRN (Reason: fever or pain) ondansetron HCl 8 mg tablet 8 mg PO Q12H PRN (Reason: nausea) albuterol sulfate 90 mcg/actuation HFA aerosol inhaler 2 puff inhalation Q4H PRN (Reason: shortness of breath or wheezing) valacyclovir 500 mg tablet 1,000 mg PO DAILY 10 Days Qty: 20 0RF Salonpas 3.1-10-6 % adhesive patch,medicated 1 patch topical DAILY PRN (Reason: pain) Rx Instructions: may leave on area for up to 8 hrs [facility] 8 mg iron-400 mcg-50 mcg tablet 1 tab PO DAILY warfarin 4 mg tablet 4 mg PO DAILY Qty: 90 3RF Protocol: Dose Management Condition: Wednesday Dose/Route: 4 mg Instruction: 1 x 4 mg tablet Condition: Wednesday Dose/Route: 4 mg Instruction: 1 x 4 mg tablet Condition: Wednesday Dose/Route: 4 mg Instruction: 1 x 4 mg tablet Condition: Wednesday Dose/Route: 8 mg Instruction: 2 x 4 mg tablets Condition: Dose/Route: 4 mg Instruction: 1 x 4 mg tablet Condition: Wednesday Dose/Route: 4 mg Instruction: 1 x 4 mg tablet Condition: Wednesday Dose/Route: 4 mg Instruction: 1 x 4 mg tablet Protocol Text: Adjustment Start Date: 03/16/24 INR Value: 3.3 INR Date: 03/16/24 Recheck Date: 03/23/24 nitrofurantoin macrocrystal 100 mg capsule 100 mg PO BID Qty: 10 0RF Rx Instructions: must administer with a meal/food No Action oxycodone 5 mg tablet 5 mg PO Q6H PRN (Reason: pain) Referrals / Follow Up: Walter Emanuel Chi, MD [Primary Care Provider] - Disposition Disposition (needs filled in before D/C Order can be placed): Detention Facility
--- NOTE | 2024-03-27 14:36 | DS.PCM_ITS ---
Providers Date of Admission: 03/22/24 Date of Discharge: 03/27/24 Primary Care Physician: Dr. Walter Emanuel MD Reason For Visit: FALLS, ADULT FTT, ACUTE ON CHRONIC ANEMIA Diagnosis Discharge Diagnosis (1) Debility: Status: Inactive Code(s): R53.81 - Other malaise (2) Adult failure to thrive: Status: Inactive Code(s): R62.7 - Adult failure to thrive (3) Metastatic bone tumor: Status: Acute Code(s): C79.51 - Secondary malignant neoplasm of bone Plan 1. Acute on chronic debility-PT and OT will continue to see the patient, we are awaiting approval for the patient to go to a [place] [facility] facility for short- term rehab #2 acute on chronic anemia-etiology unclear, patient was given 2 units of packed red blood cells, patient is due to have an upper and lower endoscopy performed as an outpatient, her iron and B12 levels are normal. CBC today showed a hemoglobin of 9.6 which appears to be stable at this time. 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 #7 decreased appetite-patient will be placed on Remeron starting tonight and attempt to stimulate appetite Total clinical time spent by myself addressing the patient's medical issues, reviewing all of her data, and collaborating with patient's care team: 35-minute Medications at Discharge Home Medications gabapentin 300 mg capsule 300 mg PO QHS Pain 09/03/22 allopurinol 100 mg tablet 100 mg PO DAILY Cardiac 02/08/23 gabapentin 100 mg capsule 100 mg PO DAILY Artheritis Pain 06/16/23 metoprolol succinate 50 mg tablet,extended release 24 hr 50 mg PO DAILY [facility] #90 TABLETS 07/06/23 duloxetine 20 mg capsule,delayed release 20 mg PO DAILY depression 11/11/23 amiodarone 200 mg tablet 200 mg PO DAILY [facility] #[facility] TABLETS 01/03/24 lidocaine-prilocaine 2.5 %-2.5 % topical cream 1 applic topical ONCE PRN port access 30 days #30 grams 01/12/24 oxycodone 5 mg tablet 5 mg PO Q6H PRN pain 03/09/24 acetaminophen 325 mg tablet 650 mg (2 x 325 mg) PO Q4H PRN PRN Fever, pain 1- 12/22 #0 tabs 03/27/24 acyclovir 200 mg capsule 400 mg (2 x 200 mg) PO BID viral #0 caps 03/27/24 albuterol sulfate 2.5 mg/3 mL (0.083 %) solution for nebulization 2.5 mg (3 mL) inhalation Q2H PRN PRN Dyspnea, wheezing #0 mL 03/27/24 ascorbic acid (vitamin C) 500 mg tablet 500 mg PO DAILY supplemement #0 tabs 03/27/24 furosemide 40 mg tablet 40 mg PO DAILY [facility] #0 tabs 03/27/24 lidocaine 5 % topical patch 1 patch topical DAILY PRN pain #0 ea 03/27/24 mirtazapine 30 mg tablet 30 mg PO QHS insomnia #0 tabs 03/27/24 oxycodone 5 mg tablet 5 mg PO Q6H PRN pain 2 days #8 tabs 03/27/24 potassium chloride 20 mEq tablet,extended release(part/cryst) 20 meq PO BIDCM supplement #0 tabs 03/27/24 sennosides 8.6 mg-docusate sodium 50 mg tablet (Stimulant Laxative Plus) 2 tab PO BID PRN PRN Constipation #0 tabs 03/27/24 warfarin 4 mg tablet (Jantoven) 4 mg PO DAILY@1700 blood thinner #0 tabs 03/27/24 levothyroxine 25 mcg tablet 25 mcg PO DAILY 03/29/24 Hospital Course Operations None Procedures None Summary of Care Provided Minutes Spent on Discharge: 32 Hospital Course: 73-year-old white female was seen in the emergency room at [facility] with complaints of generalized weakness and frequent falls at home. There was some concern that her was not able to take care of her at home because of her severe weakness, noted decreased p.o. intake at home. Patient has a history of non-small cell lung cancer and had her chemotherapy held the week before due to a UTI. Workup included a CBC which had been done as an that day and showed a hemoglobin of 7, patient's chemistry panel was unremarkable, brain MRI with contrast was obtained there was no evidence of subacute ischemic infarct or intracranial metastatic disease. Patient's chest x-ray showed bilateral pleural effusions left more than right. Patient was admitted to [place] [address], she received 2 units of packed red blood cells and was seen by PT and OT. Patient was placed on IV diuresis. She was felt to be candidate for short-term placement in [place] [facility] services. Send she was scheduled to have an upcoming EGD and colonoscopy, no endoscopic procedures were carried out during her hospital stay. On 03/27/2024, patient was seen and examined: On examination she does not appear to be in any distress. Vital signs as documented. Skin warm and dry and without overt rashes. Neck without JVD, thyroid appears normal, trachea is midline, neck is supple. Lungs clear, normal air movement was noted. Heart exam notable for regular rhythm, normal sounds and absence of murmurs, rubs or gallops. Abdomen unremarkable and without evidence of organomegaly, masses, or abdominal aortic enlargement, bowel sounds are present in all 4 quadrants, no abdominal tenderness was noted. Extremities nonedematous, no cyanosis was noted, no clubbing was noted. Neuro: Cranial nerves II through XII are grossly intact, no focal motor deficits were noted, sensation to light touch and pinprick is intact, motor exam 5/5 throughout. Psych: Patient is alert and oriented x3, she does not appear anxious or depressed, she does not appear agitated. Patient was transferred to TCU for inpatient rehab services on 03/27/2024 in stable condition. Weight / BMI Weight Weight: 63.9 kg Body Mass Index (BMI) 25.0 ABG / Lab / Microbiology Data 03/26/24 04:01 03/26/24 04:01 Laboratory: Laboratory Results - last 24 hr 03/26/24 04:01: Diff Path Review Reviewed Microbiology: Microbiology 03/24/24 11:01 Stool Stool Occult Blood (LATONIA) - Final D/C Instructions DC O2, CPAP, BIPAP Needs Home O2 Discharge instructions: Yes Type of respiratory needs?: Oxygen Oxygen frequency: Continuous Continuous oxygen liters per minute: 3.5 L DC home with Oxygen: Yes Home O2 MD Review: I have reviewed the oxygen testing, and the patient qualifies for home oxygen equipment and portability. The patient is mobile in the home and the community. Meaningful Use Info Meaningful Use Meaningful Use Diagnoses (Choose all that apply): None applicable Ischemic Stroke Statin Dosing Therapy Reference: STATIN DOSE THERAPY REFERENCE: * Patients > 75 years receive moderate or high dose statin therapy. * Patients 75 years or YOUNGER should receive HIGH intensity statin dose unless contraindicated. You will be required to document reason for non-treatment if statin daily dose does not meet guidelines. HIGH DOSE STATIN THERAPY DAILY Atorvastatin > than or = to 40 mg Rosuvastatin > than or = to 20 mg Amlodipine + Atorvastatin > than or = to 2.5/40 mg Ezetimibe + Simvastatin 10/80 mg Simvastatin 80mg Discharge Plan Admission Admit Date/Time: 03/22/24 15:29 Primary Reason for Your Visit: Generalized debility, anemia Attending Provider: Gelacio Trevino Primary Care Provider: Walter Emanuel Chi Consulting Providers: Hetal Rodríguez Discharge Orders/Prescriptions Prescriptions: New acetaminophen 325 mg Tablet 650 mg PO Q4H PRN PRN (Reason: Fever, pain 1-12/22) Qty: 0 0RF albuterol sulfate 2.5 mg /3 mL (0.083 %) Solution For Nebulization 2.5 mg inhalation Q2H PRN PRN (Reason: Dyspnea, wheezing) Qty: 0 0RF ascorbic acid (vitamin C) 500 mg Tablet 500 mg PO DAILY Qty: 0 0RF furosemide 40 mg Tablet 40 mg PO DAILY Qty: 0 0RF Patient Comments: fluid retention mirtazapine 30 mg Tablet 30 mg PO QHS Qty: 0 0RF lidocaine 5 % Adhesive Patch,Medicated 1 patch topical DAILY PRN (Reason: pain) Qty: 0 0RF oxycodone 5 mg Tablet 5 mg PO Q6H PRN (Reason: pain) 2 Days Qty: 8 0RF sennosides-docusate sodium [Stimulant Laxative Plus] 8.6-50 mg Tablet 2 tab PO BID PRN PRN (Reason: Constipation) Qty: 0 0RF potassium chloride 20 mEq Tablet,Er Particles/Crystals 20 meq PO BIDCM Qty: 0 0RF warfarin [Martoven] 4 mg Tablet 4 mg PO DAILY@1700 Qty: 0 0RF acyclovir 200 mg Capsule 400 mg PO BID Qty: 0 0RF Continued gabapentin 300 mg capsule 300 mg PO QHS allopurinol 100 mg tablet 100 mg PO DAILY duloxetine 20 mg capsule,delayed release(DR/EC) 20 mg PO DAILY gabapentin 100 mg capsule 100 mg PO DAILY metoprolol succinate 50 mg tablet extended release 24 hr 50 mg PO DAILY Qty: 90 3RF amiodarone 200 mg tablet 200 mg PO DAILY Qty: 90 3RF lidocaine-prilocaine 2.5-2.5 % cream 1 applic topical ONCE PRN (Reason: port access) 30 Days Qty: 30 2RF Discontinued acetaminophen 500 mg capsule 500 mg PO Q6H PRN (Reason: fever or pain) ondansetron HCl 8 mg tablet 8 mg PO Q12H PRN (Reason: nausea) albuterol sulfate 90 mcg/actuation HFA aerosol inhaler 2 puff inhalation Q4H PRN (Reason: shortness of breath or wheezing) valacyclovir 500 mg tablet 1,000 mg PO DAILY 10 Days Qty: 20 0RF Salonpas 3.1-10-6 % adhesive patch,medicated 1 patch topical DAILY PRN (Reason: pain) Rx Instructions: may leave on area for up to 8 hrs [facility] 8 mg iron-400 mcg-50 mcg tablet 1 tab PO DAILY warfarin 4 mg tablet 4 mg PO DAILY Qty: 90 3RF Protocol: Dose Management Condition: Wednesday Dose/Route: 4 mg Instruction: 1 x 4 mg tablet Condition: Wednesday Dose/Route: 4 mg Instruction: 1 x 4 mg tablet Condition: Wednesday Dose/Route: 4 mg Instruction: 1 x 4 mg tablet Condition: Wednesday Dose/Route: 8 mg Instruction: 2 x 4 mg tablets Condition: Dose/Route: 4 mg Instruction: 1 x 4 mg tablet Condition: Wednesday Dose/Route: 4 mg Instruction: 1 x 4 mg tablet Condition: Wednesday Dose/Route: 4 mg Instruction: 1 x 4 mg tablet Protocol Text: Adjustment Start Date: 03/16/24 INR Value: 3.3 INR Date: 03/16/24 Recheck Date: 03/23/24 nitrofurantoin macrocrystal 100 mg capsule 100 mg PO BID Qty: 10 0RF Rx Instructions: must administer with a meal/food No Action oxycodone 5 mg tablet 5 mg PO Q6H PRN (Reason: pain) levothyroxine 25 mcg tablet 25 mcg PO DAILY Referrals / Follow Up: Ck Pringle MD [Med Staff - Active Staff] - See Referral Note (Call office for follow-up appointment) Gabriel Shaw MD [Med Staff - Active Staff] - See Referral Note (Patient is scheduled to undergo EGD and colonoscopy due to anemia, check with his office to find out when these procedures are scheduled) Walter Emanuel Chi, MD [Primary Care Provider] - Disposition Disposition (needs filled in before D/C Order can be placed): Alf Facility Charges/Coding Visit Charges Inpatient E&M: 82004 Disch Hosp >30min
[2024-03-27 14:41] VITALS: BP 115/71; PULSE 102; RESP 16; TEMP 37.1; O2SAT 97
--- NOTE | 2024-03-27 15:01 | CASEMGMT ---
Social Work Precert has been obtained.? Physician updated and pt is ready for discharge today.? Bedside nurse notified of discharge. Pt and pt spouse, Abhi, notified of discharge. Disposition:TCU, skilled level of care under convalescent stay. GIANCARLO King
== END 2024-03-27 16:15 | disposition skilled nursing facility (03) | DRG 181 ==
LOC: ED 15:33 → MS3 16:19
PROVIDERS: Admitting Provider Family Medicine; Emergency Provider Emergency Medicine; PCP Family Medicine Geriatric Medicine; Visit Provider Internal Medicine
DX: C34.92 Malignant neoplasm of unspecified part of left bronchus or lung (principal); J91.0 Malignant pleural effusion; C78.1 Secondary malignant neoplasm of mediastinum; D63.1 Anemia in chronic kidney disease; R62.7 Adult failure to thrive; C04.9 Malignant neoplasm of floor of mouth, unspecified; D63.0 Anemia in neoplastic disease; C50.919 Malignant neoplasm of unspecified site of unspecified female breast; F32.A Depression, unspecified; I12.9 Hypertensive chronic kidney disease with stage 1 through stage 4 chronic kidney disease, or unspecified chronic kidney disease; I71.40 Abdominal aortic aneurysm, without rupture, unspecified; D69.59 Other secondary thrombocytopenia; I48.0 Paroxysmal atrial fibrillation; E78.5 Hyperlipidemia, unspecified; N18.2 Chronic kidney disease, stage 2 (mild); M10.9 Gout, unspecified; R54 Age-related physical debility; S00.83XA Contusion of other part of head, initial encounter; W19.XXXA Unspecified fall, initial encounter; M54.2 Cervicalgia; Z75.1 Person awaiting admission to adequate facility elsewhere; Z79.01 Long term (current) use of anticoagulants; Z86.79 Personal history of other diseases of the circulatory system; Z87.891 Personal history of nicotine dependence; Z86.73 Personal history of transient ischemic attack (TIA), and cerebral infarction without residual deficits; R79.1 Abnormal coagulation profile; Z90.710 Acquired absence of both cervix and uterus; Z92.21 Personal history of antineoplastic chemotherapy; R22.31 Localized swelling, mass and lump, right upper limb; R29.6 Repeated falls; R05.9 Cough, unspecified; G89.3 Neoplasm related pain (acute) (chronic); R63.0 Anorexia; Z68.25 Body mass index [BMI] 25.0-25.9, adult; Z79.899 Other long term (current) drug therapy; R26.9 Unspecified abnormalities of gait and mobility; G89.29 Other chronic pain
CPT/HCPCS: 36415; 36591; 70450; 70553; 71045; 71046; 71250; 72125; 73130; 80048; 80053; 81001; 82274; 82607; 82746; 83605; 83735; 84100; 84145; 84439; 84443; 85025; 85610; 86850; 86900; 86901; 86920; 87086; 87088; 93005; 93971; 94640; 94668; 96360; 96361; 97116; 97162; 97166; 97530; 97535; 97802; 99284; A9575; P9016; A4216

== ENCOUNTER 2024-03-27 16:28 | Inpatient (IN) | payer MEDICARE, MEDICAID, SELFPAY ==
[2024-03-27 16:32] VITALS: BP 92/48; PULSE 98; RESP 16; TEMP 37; O2SAT 97
--- NOTE | 2024-03-27 18:44 | NURSING ---
Per and patient, there should be no communication with the daughter Alexsandra Lawson.
--- NOTE | 2024-03-27 19:38 | HP.PCM_ITS ---
HPI - General General Date of Admission: 03/27/24 Date of Service: 03/27/24 Chief Complaint: Here for rehabilitation. HPI Narrative OSMIN DAN, is a 73 Female who presents with followin03/22/2024 [facility] ED with fall. Frequent falls, multiple falls. Dr. Pringle treating metastatic lung cancer with chemotherapy/immunotherapy. Fell multiple times in 2 days. Blood pressure 89/59 at Oncology office. Right upper extremity swelling, Anemic, unable to care for her at home. 03/16/2024 E. Coli UTI treated with Nitrofurantoin. MRI brain negative for stroke. Doppler ultrasound right upper extremity negative DVT. Type and Cross 2 units PRBC. 03/22/2024 Admit [facility]. PT/OT/CM for failure to thrive/falls. Transfuse 2 units PRBC for hemoglobin 7. Dr. Valeria BACON 03/31/2024. Carboplatin, Abraxane, Pembrolizumab, for metastatic lung cancer. 03/23/2023 Increasing left pleural effusion. INR 3, on coumadin for atrial fibrillation. 03/23/2024 CT chest moderate to large bilateral pleural effusion left worse than right. Bilateral airspace disease atelectasis versus pneumonia. Pre-[facility] TCU. 03/24/2024 Lasix for bilateral pleural effusions. 03/25/2024 Oxygen 3 liters per nasal cannula. PT/OT SNF. 03/26/2024 No appetite, Chest X-ray showed decreasing right pleural effusion. Left pleural effusion loculated. Mirtazapine 30mg qhs for appetite stimulant. 03/27/2024 Admit to TCU with debility, here for rehabilitation, strengthening, p rior to discharge home with . [facility] Medical History Frequent falls Dehydration Falls Headache Left flank pain Clayton blood in stool Vascular device, implant, or graft complication Lung cancer History of atrial fibrillation Post-menopausal Ambulates with cane Low iron Injury of head and neck Closed fracture of left proximal humerus Carotid stenosis CVA (cerebral vascular accident) Weakness UTI (urinary tract infection) Hypoxia Anemia Prerenal azotemia Oral candidiasis Encounter for education 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 receptor positive status (ER+) Ductal carcinoma in situ (DCIS) of left breast Malignant neoplasm of unspecified site of right female breast Nontoxic single thyroid nodule Vitamin D deficiency Wears dentures Cancer Arthritis Former smoker Hypertension History of echocardiogram History of stress test Cardiology follow-up encounter Essential (primary) hypertension Hyperlipidemia Breast cancer Gout Obesity Abdominal aortic aneurysm (AAA) History of breast cancer Home Medications ?Medication ?Instructions ?Recorded ?Last Taken ?Type gabapentin 300 mg capsule 300 mg PO QHS Pain 09/03/22 03/20/24 History allopurinol 100 mg tablet 100 mg PO DAILY Cardiac 02/08/23 03/21/24 History gabapentin 100 mg capsule 100 mg PO DAILY Artheritis Pain 06/16/23 03/21/24 History metoprolol succinate 50 mg 50 mg PO DAILY heart health #90 07/06/23 03/21/24 Rx tablet,extended release 24 hr TABLETS duloxetine 20 mg capsule,delayed 20 mg PO DAILY depression 11/11/23 03/21/24 History release amiodarone 200 mg tablet 200 mg PO DAILY heart health #90 01/03/24 03/21/24 Rx TABLETS lidocaine-prilocaine 2.5 %-2.5 % 1 applic topical ONCE PRN port 01/12/24 Unknown Rx topical cream access 30 days #30 grams oxycodone 5 mg tablet 5 mg PO Q6H PRN pain 03/09/24 Unknown History acetaminophen 325 mg tablet 650 mg (2 x 325 mg) PO Q4H PRN PRN 03/27/24 Unknown Rx Fever, pain -12/22 #0 tabs acyclovir 200 mg capsule 400 mg (2 x 200 mg) PO BID viral 03/27/24 Unknown Rx #0 caps albuterol sulfate 2.5 mg/3 mL 2.5 mg (3 mL) inhalation Q2H PRN 03/27/24 Unknown Rx (0.083 %) solution for nebulization PRN Dyspnea, wheezing #0 mL ascorbic acid (vitamin C) 500 mg 500 mg PO DAILY supplemement #0 03/27/24 Unknown Rx tablet tabs furosemide 40 mg tablet 40 mg PO DAILY heart health #0 tabs 03/27/24 Unknown Rx lidocaine 5 % topical patch 1 patch topical DAILY PRN pain #0 03/27/24 Unknown Rx ea mirtazapine 30 mg tablet 30 mg PO QHS insomnia #0 tabs 03/27/24 Unknown Rx oxycodone 5 mg tablet 5 mg PO Q6H PRN pain 2 days #8 tabs 03/27/24 Unknown Rx potassium chloride 20 mEq 20 meq PO BIDCM supplement #0 tabs 03/27/24 Unknown Rx tablet,extended release(part/cryst) sennosides 8.6 mg-docusate sodium 2 tab PO BID PRN PRN Constipation 03/27/24 Unknown Rx 50 mg tablet (Stimulant Laxative #0 tabs Plus) warfarin 4 mg tablet (Jantoven) 4 mg PO DAILY@1700 blood thinner 03/27/24 Unknown Rx #0 tabs Allergy/AdvReac Type Severity Reaction Status Date / Time No Known Allergies Allergy Verified 03/22/24 08:49 Family History Father , 58 Lung cancer Mother Breast cancer Sister Breast cancer Surgical History History of oral surgery Amputated toe of left foot History of excision of lesion H/O: hammer toe correction S/P breast lumpectomy History of colonoscopy (~2018) S/P AAA (abdominal aortic aneurysm) repair History of hysterectomy H/O mastectomy Social History household members: spouse Smoking Status: Former smoker quit date: 03/15/12 pack-years: 39 alcohol intake: current alcohol intake frequency: a few times a week Alcohol type: beer and wine substance use type: does not use ROS Constitutional Constitutional: Denies chills, fever(s) or weight gain ENT HEENT: Denies headache(s), nasal congestion or nasal discharge Cardiovascular Cardiovascular: Denies chest pain or palpitations Respiratory/Chest Respiratory/Chest: Denies cough, excessive phlegm production or shortness of breath with exertion Gastrointestinal Gastrointestinal: Denies abdominal pain, nausea or vomiting Genitourinary Genitourinary: Denies dysuria Musculoskeletal Musculoskeletal: Denies joint pain or joint swelling Integumentary Integumentary: Denies rash or wounds Neurologic Neurologic: Denies focal weakness, numbness or tingling Psychiatric Psychiatric: Denies anxiety, auditory hallucinations, depression, homicidal ideation or suicidal ideation Vital Signs Vital Signs Vital Signs: 03/27/24 16:32 03/27/24 16:32 Temperature 98.6 F Temperature Source Temporal Pulse Rate 98 Pulse Rhythm Regular Pulse Strength Normal (2+) Respiratory Rate 16 Respiratory Effort Normal Labored Respiratory Depth Normal Respiratory Pattern Normal Blood Pressure 92/48 L Blood Pressure Mean 62 Blood Pressure Source Monitor Blood Pressure Position Semi-Fowlers Blood Pressure Location Left Arm Pulse Ox 97 Oxygen Delivery Method Nasal Cannula Nasal Cannula Oxygen Flow Rate (L/min) 3 3 Weight Weight: 62.414 kg Physical Exam Const alert General Appearance: cooperative HEENT normocephalic Eyes PERRL and EOMs intact bilaterally Neck supple, no JVD and no carotid bruits Resp normal respiratory effort, normal air movement and clear to auscultation bilaterally Cardio regular rate and regular rhythm GI normal to inspection, nondistended, normoactive bowel sounds, non-tender and non-distended Extremity normal capillary refill General Extremity: Negative for edema Skin no rashes or lesions noted General Skin Exam: no breakdown Psych affect normal Appearance: appropriate Assessment & Plan Assessment/Plan (1) Debility: (2) Frequent falls: (3) Failure to thrive: (4) Acute anemia: (5) Bilateral pleural effusion: (6) 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: (7) Neuropathic pain: (8) Gout: (9) Hypokalemia: (10) Essential (primary) hypertension: (11) Depression: (12) Atrial fibrillation: PLAN: Plan 73 year old female with below past medical history hospitalized for multiple falls, failure to thrive, complicated by acute anemia requiring transfusion, bilateral pleural effusion, appetite loss, admitted to TCU with debility, here for rehabilitation, strengthening, prior to discharge home with . * Debility - PT/OT. * Pain - Tylenol 1000mg q6 prn pain (1-5), Oxycodone 5mg q4 prn pain (6-10), Lidoderm 1 patch td daily prn, Emla 5gm topical x 1 prn. * Bowel - Senna/colace 2 tablets bid prn. * Adult immunization - Administer pneumonia vaccine, covid vaccine, flu vaccine as appropriate. * DVT prophylaxis - on Warfarin. * Shingles prophylaxis - Acyclovir 400mg bid. * Shortness of breath - Albuterol 2.5mg neb q2 prn. * Gout - Allopurinol 100mg daily. * Atrial fibrillation - Metoprolol succinate 50mg daily, Allopurinol 100mg daily, Warfarin 4mg daily. * Depression - Duloxetine 20mg daily, stable chronic supervisor intermediates use, GDR not recommended. * Bilateral pleural effusion - Furosemide 40mg daily. * Neuropathic pain - Gabapentin 100mg, 300mg qhs. * Appetite loss - Mirtazapine 7.5mg qhs, GDR if no improvement in symptoms. * Hypokalemia - KCL 20meq bidcm.
[2024-03-27] MEDS: Gabapentin 300 MG Capsule PO (21:27)
[2024-03-27] MEDS: Mirtazapine 15 MG Tablet 7.5 MG PO (21:30)
[2024-03-27] MEDS: Acyclovir 200 MG Capsule 400 MG PO (21:30)
[2024-03-27] MEDS: oxyCODONE 5 MG Tablet PO (21:40)
[2024-03-28 05:58] LABS: Hematocrit 34.9 % (37-47); Hemoglobin 10.6 g/dL (12.0-15.0); Mean Corp Hgb Conc 30.4 g/dL (32-36); Mean Corpuscular Hgb 30.2 pg (27.0-32.0); Mean Corpuscular Volume 99.4 fL (81-99); Mean Platelet Vol. 9.6 fl (6.2-12.0); POSITIVE COUNT YES; POSITIVE DIFFERENTIAL YES; POSITIVE MORPHOLOGY YES; Platelet Count 468 K/mm3 (150-450); RBC Distribution Width CV 25.1 % (11.6-14.6); RBC Distribution Width SD 90.2 fl (35.1-43.9); Red Blood Count 3.51 M/mm3 (4.2-5.4); White Blood Count 8.6 K/mm3 (4.4-11.0)
[2024-03-28 06:05] LABS: Differential Indicated MANUAL DIFF
[2024-03-28 06:12] LABS: International Normalized Ratio 2.2; Prothrombin Time (Protime)PT. 24.4 SECONDS (11.7-14.9)
[2024-03-28 06:24] LABS: Anion Gap 0 (5-15); BUN 35 mg/dL (7-18); BUN/Creat Ratio 41.9 RATIO (10-20); Calcium,Total 9.1 mg/dL (8.5-10.1); Chloride 101 mmol/L (98-107); Creatinine, Serum 0.84 mg/dL (0.55-1.02); EST Glomerular Filtration Rate 71 mL/min (>60); Est Glom Filt Rate - Afr Amer 86 mL/min (>60); Estimated Creatinine Clearance 48.61 ml/min; Glucose 100 mg/dL (74-106); Sodium Level 139 mmol/L (136-145)
[2024-03-28 07:36] LABS: Eosinophil 3 % (0-5); Lymphocyte 8 % (19-41); Metamyelocyte 3 % (0-1); Monocyte 11 % (0-10); Neutrophil-Band 2 % (0-5); Neutrophil-Segmented 73 % (47-70); Polychromasia 1+; Total Cells Counted 100 (MANUAL DIFF)
[2024-03-28 07:37] LABS: Anisocytosis 2+
[2024-03-28 07:38] LABS: Ovalocyte 1+; Platelet Estimate SLT INC (ADEQ); Platelet Morphology LARG
[2024-03-28 07:39] LABS: Absolute Lymphocyte Count 0.69 X10^3/uL (0.83-4.51); Absolute Neutrophil Count 6.4 X10^3/uL (2.0-7.7)
[2024-03-28 08:55] VITALS: BP 108/61; PULSE 108; RESP 17; TEMP 36.4; O2SAT 94
[2024-03-28] MEDS: Acyclovir 200 MG Capsule 400 MG PO ×2 (08:55→20:33)
[2024-03-28] MEDS: Potassium Chloride Oral Tablet 20 MEQ PO ×2 (08:55→17:57)
[2024-03-28] MEDS: Metoprolol(XL)Succ 50 MG Tablet PO (08:55)
[2024-03-28] MEDS: Allopurinol 100 MG Tablet PO (08:55)
[2024-03-28] MEDS: Furosemide 40 MG Tablet PO (08:55)
[2024-03-28] MEDS: Amiodarone 200 MG Tablet PO (08:55)
[2024-03-28] MEDS: DULoxetine Hcl 20 MG Capsule PO (08:55)
[2024-03-28] MEDS: Gabapentin 100 MG Capsule PO (08:58)
[2024-03-28] MEDS: Tuberculin,Purif.prot.deriv. 50 TU/ML Vial 0.1 ML ID (08:58)
[2024-03-28 10:30] VITALS: O2SAT 97
[2024-03-28 11:54] LABS: Pathologist Review Reviewed
--- NOTE | 2024-03-28 15:57 | PCM.PN.DRR ---
Documented by User: Opal Linares 03/28/24 16:28 TCU RX Drug Regimen Review Subjective/Objective Subjective/Objective Subjective: TCU Admission. 73 YOF presented to the ER with a fall. Hospitalized for multiple falls, failure to thrive, complicated by acute anemia requiring transfusion, bilateral pleural effusion, appetite loss. Admitted to TCU with debility for strengthening and rehabilitation. Objective: Allergies No Known Allergies Allergy (Verified 03/22/24 08:49) Current Medications Generic Name Dose Route Start Last Admin Trade Name Freq PRN Reason Stop Dose Admin Acetaminophen 1,000 mg 03/27/24 19:38 Acetaminophen 500 Mg Tablet PO Q6H PRN PRN Pain Score 1-5 Acyclovir 400 mg 03/27/24 22:00 03/28/24 08:55 Acyclovir 200 Mg Capsule PO 400 mg BID ALYSSIA Administration Albuterol Sulfate 2.5 mg 03/27/24 16:59 Albuterol 2.5 Mg/3 Ml Vial.Neb. INHALATION Q2H PRN PRN Dyspnea, wheezing Allopurinol 100 mg 03/28/24 08:00 03/28/24 08:55 Allopurinol 100 Mg Tablet PO 100 mg BREAKFAST ALYSSIA Administration Amiodarone HCl 200 mg 03/28/24 08:00 03/28/24 08:55 Amiodarone 200 Mg Tablet PO 200 mg BREAKFAST ALYSSIA Administration Duloxetine HCl 20 mg 03/28/24 10:00 03/28/24 08:55 Duloxetine Hcl 20 Mg Capsule PO 20 mg DAILY ALYSSIA Administration Furosemide 40 mg 03/28/24 10:00 03/28/24 08:55 Furosemide 40 Mg Tablet PO 40 mg DAILY ALYSSIA Administration Protocol Gabapentin 300 mg 03/27/24 22:00 03/27/24 21:27 Gabapentin 300 Mg Capsule PO 300 mg QHS ALYSSIA Administration Gabapentin 100 mg 03/28/24 10:00 03/28/24 08:58 Gabapentin 100 Mg Capsule PO 100 mg DAILY ALYSSIA Administration Lidocaine 1 patch 03/27/24 16:59 Lidocaine 5% Patch TOPICAL DAILY PRN PRN Pain Score 1-10 Protocol Lidocaine/Prilocaine 5 gm 03/27/24 16:59 Lidocaine/Prilocaine Hcl 5 Gm Tube TOPICAL X1 PRN PORT ACCESS Protocol Metoprolol Succinate 50 mg 03/28/24 10:00 03/28/24 08:55 Metoprolol(Xl)Succ 50 Mg Tablet PO 50 mg DAILY ALYSSIA Administration Protocol Mirtazapine 7.5 mg 03/27/24 22:00 03/27/24 21:30 Mirtazapine 15 Mg Tablet PO 7.5 mg QHS ALYSSIA Administration Oxycodone HCl 5 mg 03/27/24 19:38 03/27/24 21:40 Oxycodone 5 Mg Tablet PO 5 mg Q4H PRN PRN Administration Pain Score 6-10 or Pre PT/OT Potassium Chloride 20 meq 03/28/24 08:00 03/28/24 08:55 Potassium Chloride Oral Tablet 20 Meq PO 20 meq BIDCM ALYSSIA Administration Senna/Docusate Sodium 2 tablet 03/27/24 17:05 Senna/Docusate Sodium 1 Tablet PO BID PRN PRN Constipation Tuberculin PPD 0.1 ml 04/04/24 10:00 Tuberculin,Purif.Prot.Deriv. 50 Tu/Ml Vial ID 04/04/24 10:01 X1 ONE Warfarin Sodium 4 mg 03/27/24 17:30 03/27/24 19:02 Warfarin 4 Mg Tablet PO 4 mg DAILY@1700 [facility] Administration Problem List Depression (Acute) Essential (primary) hypertension (Acute) Neuropathic pain (Acute) 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 (Acute) Bilateral pleural effusion (Acute) Acute anemia (Acute) Failure to thrive (Acute) Debility (Acute) Hypokalemia (Acute) Atrial fibrillation (Acute) Gout (Acute) Frequent falls (Acute) Vital Signs Temp Pulse Resp BP Pulse Ox O2 Del Method O2 Flow Rate 97.6 F L 108 H 17 108/61 97 Nasal Cannula 2 03/28/24 08:55 03/28/24 08:55 03/28/24 08:55 03/28/24 08:55 03/28/24 10:30 03/28/24 10:00 03/28/24 10:30 Oxygen Flow Rate (L/min) 2 Oxygen Delivery Method Nasal Cannula Weight: 62.414 kg Sodium 139 mmol/L (136-145) 03/28/24 05:30 Potassium 4.0 mmol/L (3.5-5.1) 03/28/24 05:30 Chloride 101 mmol/L (98-107) 03/28/24 05:30 Carbon Dioxide 38.0 mmol/L (21.0-32.0) H 03/28/24 05:30 Anion Gap 0 (5-15) L 03/28/24 05:30 BUN 35 mg/dL (7-18) H 03/28/24 05:30 Creatinine 0.84 mg/dL (0.55-1.02) 03/28/24 05:30 Est GFR (MDRD) Af Amer 86 mL/min (>60) 03/28/24 05:30 Est GFR (MDRD) Non-Af 71 mL/min (>60) 03/28/24 05:30 BUN/Creatinine Ratio 41.9 RATIO (10-20) H 03/28/24 05:30 Glucose 100 mg/dL (74-106) 03/28/24 05:30 Assessment/Plan: 1. Pain: acetaminophen 1000mg PO Q6H PRN pain 1-5, oxycodone 5mg PO Q4H PRN pain 6-10, lidocaine 5% patch topical daily PRN pain 1-10 and Emla cream 5 gm topical x1 PRN port access. Resident has had 1 dose of oxycodone for a pain score of 6 in the back/foot and no doses of other PRN meds. Please continue to monitor for increased pain, PRN usage, constipation, respiratory depression and falls (BEERs). 2. Bowel: senna/docusate 2T PO BID PRN constipation. No PRN doses have been given. Please continue to monitor for constipation and PRN usage. Last documented bowel movement was 03/28. 3. Atrial fibrillation: metoprolol succinate 50mg PO daily, amiodarone 200mg PO breakfast and warfarin 4mg PO dinner. Please continue to monitor BP (last 108/61), HR (last 108), S/S of bleeding, hemoglobin (last 10.6g/dL), INR (last 2.2), sodium (last 139mmol/L) and potassium (last 4mmol/L). 4. Bilateral pleural effusion: furosemide 40mg PO daily. Please continue to monitor renal function, SOB, potassium (last 4mmol/L) and BP. 5. Gout: allopurinol 100mg PO breakfast. Please continue to monitor for S/S of gout and renal function. 6. Shingles prophylaxis: acyclovir 400mg PO BID. Please continue to monitor for S/S of singles and renal function. 7. Shortness of breath: albuterol 2.5mg nebulized solution Q2H PRN dyspnea/wheezing. No PRN doses have been given. Please continue to monitor for PRN usage, dyspnea, wheezing. 8. Hypokalemia: potassium chloride 20meq PO BIDCM. Please continue to monitor potassium levels. Assessment/Plan for indications treated with psychotropic medications: 1. Depression: duloxetine 20mg PO daily. Please see physician note regarding GDR. Please continue to monitor for suicidal ideation (black box warning), falls/fractures (BEERs), renal function and sodium. 2. Appetite loss: mirtazapine 7.5mg PO QHS. Please see physician note regarding GDR. Please continue to monitor for appetite improvement and sodium. 3. Neuropathic pain: gabapentin 100mg PO daily and 300mg QHS. GDR not appropriate as this medication is being used for neuropathic pain. Please continue to monitor for pain, confusion, falls/fractures (BEERs), renal function. Medical chart and medication regimen reviewed. The following medication irregularities or issues were identified: None Date Date of Note: 03/28/24 Documented by User: Dr. Walter Emanuel MD 03/28/24 17:02 TCU RX Drug Regimen Review Provider Comments Provider responsibility Provider Comments to Recommendations by Pharmacy Agree
--- NOTE | 2024-03-28 16:02 | CHAPLAIN ---
Type of Pastoral Visit _x__ Initial Visit ___ Follow-up Visit ___ On-call Visit ___ General Patient Visit ___ Spiritual Assessment ___ Family Conference ___ Bereavement ___ Rapid Response ___ Code Blue ___ Other (describe below) Pastoral Care Referral From _x__ Patient ___ Family ___ Nurse ___ Physician ___ Associate Attorney ___ Bark Spudder ___ Other (describe below) Sacrament/Intervention _x__ Active listening ___ Anointing ___ Shinto ___ Bereavement ___ Communion ___ Yolanda exploration ___ ___ Life review _x__ Prayer ___ Reconciliation ___ Sacrament of Sick _x__ Supportive presence ___ Wedding ___ Other (describe below) Pastoral Comments patient was seen last week in [facility]; pt has been moved for therapy and will be continuing her chemo treatments in the infusion area while she is here; pt admits that she is discouraged since this is third time for cancer and it is getting harder to take; pt questions the why and what that are common in this situation; pt welcomes someone to talk with and carries on the conversation well; pt also focuses on others and not just herself in the conversation; a friend comes into the room with gifts and would like to visit; small talk among all three - the patient is a big [employer] fan - and then this intelligence operations specialist excuses himself so they can visit
[2024-03-28 16:47] VITALS: BMI 24.3
[2024-03-28] MEDS: Ensure Plus High Protein 120 ML LIQUID PO (17:57)
--- NOTE | 2024-03-28 18:06 | CASEMGMT ---
Social Work SW met with patient and to complete initial assessment. Introduced self and role. Pt granted permission to have remain present. Pt also scored 31/50 on BCAT and verified answers. SW verified/updated contacts. Pt confirmed code status at [facility]. Pt has Living Will on file, but not HCPOA. Requested provide copies to place on file. agreed. SW educated to [facility] insurance with NRD 03/30 and continued stay is not guaranteed with each review. Pt's goal is to return home with . SW explained d/t pt's multiple fall history, 5 falls in one day pt admitted, that DC recommendations will be 24/7 hands on care to assist in safety and preventing falls. Discussed alarms at home. SW explained at the time of insurance issuance of DC, if pt cannot return home, SW to assist with other options. Pt and both expressed understanding. SW will continue to follow for DC planning. Beverley Pickett, MANAGER FOOD GAS REFRIGERATOR SERVICER
[2024-03-28] MEDS: Mirtazapine 15 MG Tablet 7.5 MG PO (20:32)
[2024-03-28] MEDS: Gabapentin 300 MG Capsule PO (20:33)
[2024-03-29 08:58] VITALS: BP 119/59; PULSE 89; RESP 18; TEMP 36.8; O2SAT 95
[2024-03-29] MEDS: DULoxetine Hcl 20 MG Capsule PO (09:01)
[2024-03-29] MEDS: Furosemide 40 MG Tablet PO (09:01)
[2024-03-29] MEDS: Acyclovir 200 MG Capsule 400 MG PO ×2 (09:01→21:25)
[2024-03-29] MEDS: Potassium Chloride Oral Tablet 20 MEQ PO ×2 (09:02→17:36)
[2024-03-29] MEDS: Amiodarone 200 MG Tablet PO (09:02)
[2024-03-29] MEDS: Allopurinol 100 MG Tablet PO (09:02)
[2024-03-29] MEDS: Ensure Plus High Protein 120 ML LIQUID PO ×3 (09:02→17:36)
[2024-03-29 09:04] VITALS: BP 119/59; PULSE 86
[2024-03-29] MEDS: Gabapentin 100 MG Capsule PO (09:04)
[2024-03-29] MEDS: Metoprolol(XL)Succ 50 MG Tablet PO (09:04)
--- NOTE | 2024-03-29 11:55 | NURSING ---
Addendum entered by Qi Chambers 03/29/24 12:08: Call from Dr. Shaw's office, they had planned to have coumadin held 5 days prior to procedure. They will cancel colonoscopy for Wednesday and will follow-up with TCU if they plan to do procedure while she's still here. Original Note: Call from [place] stating resident is scheduled for outpt colonoscopy on Wednesday03/31/24, asking about her coumadin and her diet. Let her know residnet on red diet, has been taking coumadin. She will speak with GI and call back with plan.
--- NOTE | 2024-03-29 12:34 | NURSING ---
Infusion Pharmacist Note; Activity Asset: Krzysztof Smith prefers to be called Cookie and is independent in her choice of daily activities. Cookie has her smartphone and a few books to read. She welcomes visits from [facility]'s, our pole inspector and therapy dog when available. She prefers to read, watch tv, visit w/family and friends when not resting or in therapy. Staff will remind her of weekly group/in room activities and respect her right to say no.
[2024-03-29 13:19] VITALS: O2SAT 97
[2024-03-29] MEDS: Acetaminophen 500 MG Tablet 1000 MG PO (13:42)
[2024-03-29] MEDS: oxyCODONE 5 MG Tablet PO (13:44)
[2024-03-29 13:49] VITALS: PULSE 86; RESP 18; O2SAT 96
--- NOTE | 2024-03-29 14:28 | NS ---
MST score = 4
[2024-03-29] MEDS: Lidocaine 5% Patch 1 PATCH TOPICAL (15:18)
[2024-03-29] MEDS: guaiFENesin/Codeine 5 ML UDC 10 ML PO (17:37)
--- NOTE | 2024-03-29 18:05 | NURSING ---
dr ruiz notified of pt rating pain 10/10 in back at times, reports she was taking 10mg oxy at home & pt also takes robitussin w/codeine for cough. new orders entered. no attempts of pt trying to get up w/out assist today. pleasant with all interactions. speech wants pt to take meds whole in applesauce d/t history of swallowing issues recently.
[2024-03-29] MEDS: Gabapentin 300 MG Capsule PO (21:25)
[2024-03-29] MEDS: Mirtazapine 15 MG Tablet 7.5 MG PO (21:25)
[2024-03-30 06:02] LABS: International Normalized Ratio 2.8; Prothrombin Time (Protime)PT. 30.3 SECONDS (11.7-14.9)
[2024-03-30 08:46] VITALS: BP 112/66; PULSE 111; RESP 18; TEMP 36.5; O2SAT 92
[2024-03-30] MEDS: Ensure Plus High Protein 120 ML LIQUID PO ×2 (08:47→17:55)
[2024-03-30 08:48] VITALS: PULSE 111
[2024-03-30] MEDS: DULoxetine Hcl 20 MG Capsule PO (08:48)
[2024-03-30] MEDS: Metoprolol(XL)Succ 50 MG Tablet PO (08:48)
[2024-03-30] MEDS: Amiodarone 200 MG Tablet PO (08:48)
[2024-03-30] MEDS: Furosemide 40 MG Tablet PO (08:48)
[2024-03-30] MEDS: Potassium Chloride Oral Tablet 20 MEQ PO ×2 (08:48→17:55)
[2024-03-30] MEDS: Allopurinol 100 MG Tablet PO (08:48)
[2024-03-30] MEDS: Acyclovir 200 MG Capsule 400 MG PO ×2 (08:49→20:59)
[2024-03-30] MEDS: oxyCODONE 5 MG Tablet 10 MG PO (08:51)
[2024-03-30] MEDS: Gabapentin 100 MG Capsule PO (08:52)
[2024-03-30] MEDS: Lidocaine 5% Patch 1 PATCH TOPICAL (11:03)
[2024-03-30 11:13] VITALS: PULSE 86; RESP 18; O2SAT 92
--- NOTE | 2024-03-30 14:28 | HP.SPFEES ---
FEES Patient Information Date of Evaluation: 03/30/24 Time of Evaluation: 10:30 Diagnosis: oropharyngeal dysphagia Staff Providing this Care/Treatment:: JAVON Direct Billable Minutes: 120 History: Past Medical History:: 73 year old female with below past medical history hospitalized for multiple falls, failure to thrive, complicated by acute anemia requiring transfusion, bilateral pleural effusion, appetite loss, admitted to TCU with debility, here for rehabilitation, strengthening, prior to discharge home with . ST consulted for cognitive assessment. After chart review, the patient has history of oropharyngeal dysphagia likely secondary to cancer diagnosis. ST will complete bedside swallow evaluation tomorrow to determine the appropriate PO diet. PMHx re: debility, frequent falls, failure to thrive, acute anemia, bilateral pleural effusion, 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, neuropathic pain, gout, hypokalemia, essential (primary) hypertension, depression, atrial fibrillation. Pt had an outpatient FEES completed on 11/01/23 which recommended the following: Diet: Soft and Bite Sized Textures and Thin Liquids Medication Administration:: Whole in puree Comments: A 3 second bolus hold before small sips of thin liquid is recommended. Pt can have melt-able solids i.e. potato chips, rice crackers, melt-able crackers. No mixed consistency foods (i.e., cereal with milk, soup, dressings on salad) that combines solid food with thin liquid. No straws Compensatory Strategies: Small Bites, Small Sips, Slow Rate, Sitting upright, Remain sitting upright for 30 minutes after PO intake, Minimize/decrease distractions and Assist with verbal cues to use recommended strategies TX/DX History:: FEES Subjective: Subjective:: Pt was seen for the FEES evaluation in her hospital room. Pt was agreeable to the assessment. Pt with some confusion during and after the evaluation. Current Diet: Drinks/Liquids:: Thin Foods:: Regular Supervision: 1:1 Distant Supervision Comment:: Pt was not able to verbalize the dietary restrictions or safety precautions that were recommended at her prior instrumental evaluation. Respiratory Status Observation:: O2 via nasal cannula Dentition/Oral Hygiene: Observations:: Pt has dentures, but does not wear them. Cognition: Observations:: Impaired and Did not impact exam Position During FEES: Location: In Chair Fiberoptic Endoscope: Size: 3.4 mm Nare Used:: Right Anatomy: Velum Movement: Yes and Symmetrical Nasopharynx Tissue Description: [place] and Moist Secretions: Description:: Thick, Yellow and White Comment:: Pt with thick secretions across the vocal folds and around the laryngeal vestibule prior to starting P.O. trials. Able to clear secretions with 3 ice chips. However, secretions and thin liquid from the ice chips were observed to enter the airway during the assessment and pt was unable to fully eject the secretions/thin liquid despite eliciting a cough response. Phonation: Arytenoid Adduction: WFL Vocal Fold Adduction: WFL Penetration-Aspiration Scale Penetration-Aspiration Scale Thin Liquids by Teaspoon Food/Drink Provided:: water Swallow Onset Location:: Laryngeal Vestibule Comments:: delayed swallow onset PAS Score: PAS Score *7 Strategies Trialed:: Pt independently elicited a cough response, but this was not effective in clearing the residue of thin liquid from the airway/laryngeal vestibule. Additional Comments:: premature spillage to the laryngeal vestibule. Thin Liquids by Single Cup Food/Drink Provided:: water Swallow Onset Location:: Laryngeal Vestibule PAS Score: PAS Score *8 Comments:: Pt required prompting to swallow during 2 trials. Pt with SILENT ASPIRATION of one trial of thin liquid. Pt independently elicited a cough response with other trials, but this was not effective in clearing the residue of thin liquid from the airway/laryngeal vestibule. Thin Liquids by Sequential Cup Food/Drink Provided:: water Swallow Onset Location:: Laryngeal Vestibule PAS Score: PAS Score *8 Comments:: SILENT ASPIRATION Mildly Thick Liquids by Single Cup Food/Drink Provided:: water Swallow Onset Location:: Pyriform Sinuses PAS Score: PAS Score *1 Mildly Thick Liquids by Single Straw Food/Drink Provided:: water Swallow Onset Location:: Pyriform Sinuses PAS Score: PAS Score *1 Puree Textures Food/Drink Provided:: apple sauce Swallow Onset Location:: Vallecula PAS Score: PAS Score *1 Comments:: min residue - I cleared by a second swallow Soft & Bite Sized Textures Food/Drink Provided:: peaches, Cookie softened in apple sauce PAS Score: PAS Score *7 Comments:: Pt consumed 1 piece of peach with a PAS of 1. Pt consumed a cookie softened in apple sauce with a PAS of 1. Strategies Trialed:: With a larger bite (2 pieces of peach), pt with prolonged chewing. When pt swallowed the bolus, residue remained (2 larger unchewed pieces of peach). The swallow trigger was delayed and liquid from the peach entered laryngeal vestibule. Pt triggered a cough reflex that was ineffective in clearing the airway. Regular Textures Food/Drink Provided:: cookie PAS Score: PAS Score *7 Comments:: Prolonged chewing of greater than 3 minutes. Pt did not indepdently trigger a swallow. Pt was provided with a liquid wash of nectar to clear the bolus. The liquid mixed with the bolus entered the laryngeal vestibule and pt elicited a cough, which was ineffective in clearing the laryngeal vestibule/airway. Diagnosis/Impressions Diagnosis: oropharyngeal dysphagia Swallowing Impairment: Reduced Alertness or Attention, Difficulty Following Directions, Mastication Inefficiency, Impaired Oropharyngeal Transport, Premature Posterior Loss and Decreased Pharyngeal Contraction Recommendations Diet: Soft and Bite Sized Textures and Mildly Thick Liquids Comments: Very small bites - one piece at a time with soft textures i.e. peaches Konrad free water protocol (teaspoon sized sips from an open cup or off a spoon) o.k. after through oral care and 30 mins after post non-water P.O. intake Compensatory Strategies: Small Bites, Small Sips, Slow Rate, Sitting upright and Assist with verbal cues to use recommended strategies Supervision: 1:1 Direct Supervision Recommend Repeat Instrumental Swallow Assessment: TBD Need for Skilled Speech Therapy Services: Yes Education Completed: 1. Described result of evaluation. and 7. Pt requires further education on strategies & risks.
--- NOTE | 2024-03-30 16:50 | NURSING ---
pt has been lethargic today after receiving oxyir this AM, dr ruiz notified, new order to decrease oxyir to 5mg
--- NOTE | 2024-03-30 18:58 | NURSING ---
oral care provided, pt waited 30 minutes. thin water & ice chips given per taylor water protocol.
[2024-03-30] MEDS: Mirtazapine 15 MG Tablet 7.5 MG PO (20:59)
[2024-03-30] MEDS: Gabapentin 300 MG Capsule PO (20:59)
[2024-03-31 10:00] VITALS: RESP 18
[2024-03-31 10:11] VITALS: BP 116/73; PULSE 98; RESP 18; TEMP 36.6; O2SAT 90
[2024-03-31] MEDS: Amiodarone 200 MG Tablet PO (10:16)
[2024-03-31] MEDS: Potassium Chloride Oral Tablet 20 MEQ PO ×2 (10:16→18:09)
[2024-03-31] MEDS: Ensure Plus High Protein 120 ML LIQUID PO ×3 (10:16→19:37)
[2024-03-31 10:17] VITALS: PULSE 98
[2024-03-31] MEDS: oxyCODONE 5 MG Tablet PO (10:17)
[2024-03-31] MEDS: Acyclovir 200 MG Capsule 400 MG PO ×2 (10:17→20:42)
[2024-03-31] MEDS: Gabapentin 100 MG Capsule PO (10:17)
[2024-03-31] MEDS: DULoxetine Hcl 20 MG Capsule PO (10:17)
[2024-03-31] MEDS: Allopurinol 100 MG Tablet PO (10:17)
[2024-03-31] MEDS: Furosemide 40 MG Tablet PO (10:17)
[2024-03-31] MEDS: Metoprolol(XL)Succ 50 MG Tablet PO (10:17)
[2024-03-31] MEDS: Lidocaine 5% Patch 1 PATCH TOPICAL (13:10)
--- NOTE | 2024-03-31 13:22 | CASEMGMT ---
Social Work SW completed BIMS () and PHQ-2 () for MDS assessment. Beverley Pickett MSW SASH STICKER
[2024-03-31] MEDS: Acetaminophen 500 MG Tablet 1000 MG PO (14:10)
[2024-03-31] MEDS: guaiFENesin/Codeine 5 ML UDC 10 ML PO (18:05)
[2024-03-31] MEDS: Mirtazapine 15 MG Tablet 7.5 MG PO (20:42)
[2024-03-31] MEDS: Gabapentin 300 MG Capsule PO (20:43)
[2024-04-01] MEDS: oxyCODONE 5 MG Tablet PO ×2 (05:57→18:33)
[2024-04-01 09:46] VITALS: PULSE 89
[2024-04-01] MEDS: Metoprolol(XL)Succ 50 MG Tablet PO (09:46)
[2024-04-01] MEDS: Potassium Chloride Oral Tablet 20 MEQ PO ×2 (09:46→16:45)
[2024-04-01] MEDS: Ensure Plus High Protein 120 ML LIQUID PO ×3 (09:46→16:48)
[2024-04-01] MEDS: Gabapentin 100 MG Capsule PO (09:46)
[2024-04-01] MEDS: Amiodarone 200 MG Tablet PO (09:47)
[2024-04-01] MEDS: Acyclovir 200 MG Capsule 400 MG PO ×2 (09:47→20:06)
[2024-04-01] MEDS: DULoxetine Hcl 20 MG Capsule PO (09:47)
[2024-04-01] MEDS: Allopurinol 100 MG Tablet PO (09:47)
[2024-04-01] MEDS: Furosemide 40 MG Tablet PO (09:48)
[2024-04-01] MEDS: Lidocaine 5% Patch 1 PATCH TOPICAL (12:06)
[2024-04-01 15:49] VITALS: BP 135/84; PULSE 89; RESP 16; TEMP 36.8; O2SAT 97
[2024-04-01 20:00] VITALS: PULSE 82; RESP 16; O2SAT 92
[2024-04-01] MEDS: Mirtazapine 15 MG Tablet 7.5 MG PO (20:06)
[2024-04-01] MEDS: Gabapentin 300 MG Capsule PO (20:06)
[2024-04-02 03:00] VITALS: RESP 16
[2024-04-02] MEDS: oxyCODONE 5 MG Tablet PO ×2 (05:56→10:14)
--- NOTE | 2024-04-02 06:10 | NURSING ---
Patient observed with veterinary linement gel topical analgesic, asking for it to be applied stating family provided it, states I use it at home Patient educated that all medications or creams should be brought to the nurse to request order from MD. Patient verbalizes understanding. Cream locked din med box until order obtained, patient agrees. Written communication left for Dr. Emanuel
[2024-04-02 07:56] VITALS: BP 125/68; PULSE 94; RESP 18; TEMP 36.7; O2SAT 92
[2024-04-02] MEDS: Allopurinol 100 MG Tablet PO (08:00)
[2024-04-02] MEDS: Potassium Chloride Oral Tablet 20 MEQ PO ×2 (08:00→17:24)
[2024-04-02] MEDS: Amiodarone 200 MG Tablet PO (08:00)
[2024-04-02] MEDS: Ensure Plus High Protein 120 ML LIQUID PO ×3 (08:00→17:24)
[2024-04-02] MEDS: DULoxetine Hcl 20 MG Capsule PO (08:01)
[2024-04-02] MEDS: Lidocaine 5% Patch 1 PATCH TOPICAL (08:01)
[2024-04-02] MEDS: Furosemide 40 MG Tablet PO (08:01)
[2024-04-02 08:02] VITALS: PULSE 94
[2024-04-02] MEDS: Acyclovir 200 MG Capsule 400 MG PO ×2 (08:02→20:25)
[2024-04-02] MEDS: Metoprolol(XL)Succ 50 MG Tablet PO (08:02)
[2024-04-02] MEDS: Gabapentin 100 MG Capsule PO (10:12)
[2024-04-02] MEDS: Gabapentin 300 MG Capsule PO (20:25)
[2024-04-02] MEDS: Mirtazapine 15 MG Tablet 7.5 MG PO (20:26)
[2024-04-03 06:20] LABS: International Normalized Ratio 3.5; Prothrombin Time (Protime)PT. 36.2 SECONDS (11.7-14.9)
[2024-04-03 06:53] VITALS: O2SAT 96
--- NOTE | 2024-04-03 08:54 | NURSING ---
Technical Advisor Note; MDS for 04/03/2024 Complete
[2024-04-03 09:26] VITALS: BP 120/68; PULSE 87; RESP 18; TEMP 36.1; O2SAT 95
[2024-04-03 09:29] VITALS: PULSE 87
[2024-04-03] MEDS: Amiodarone 200 MG Tablet PO (09:29)
[2024-04-03] MEDS: Potassium Chloride Oral Tablet 20 MEQ PO ×2 (09:29→17:49)
[2024-04-03] MEDS: Metoprolol(XL)Succ 50 MG Tablet PO (09:29)
[2024-04-03] MEDS: Furosemide 40 MG Tablet PO (09:29)
[2024-04-03] MEDS: Allopurinol 100 MG Tablet PO (09:29)
[2024-04-03] MEDS: Ensure Plus High Protein 120 ML LIQUID PO ×2 (09:29→17:49)
[2024-04-03] MEDS: DULoxetine Hcl 20 MG Capsule PO (09:29)
[2024-04-03] MEDS: Lidocaine 5% Patch 1 PATCH TOPICAL (09:30)
[2024-04-03] MEDS: Acyclovir 200 MG Capsule 400 MG PO ×2 (09:30→21:00)
[2024-04-03] MEDS: Gabapentin 100 MG Capsule PO (09:33)
[2024-04-03 12:29] VITALS: O2SAT 97
--- NOTE | 2024-04-03 17:14 | NURSING ---
dr ruiz notified of INR, warfarin decreased per new order
[2024-04-03] MEDS: Warfarin (BKC) 3 MG Tablet PO (17:48)
[2024-04-03] MEDS: Gabapentin 300 MG Capsule PO (20:59)
[2024-04-03] MEDS: guaiFENesin/Codeine 5 ML UDC 10 ML PO (20:59)
[2024-04-03] MEDS: Mirtazapine 15 MG Tablet 7.5 MG PO (21:00)
[2024-04-04 05:45] LABS: Absolute Neutrophil Count 7.2 X10^3/uL (2.0-7.7); Basophil# 0.08 X10^3/uL; Basophil% 0.8 % (0-1); Eosinophil# 0.14 X10^3/uL; Eosinophils% 1.4 % (0-5); Hematocrit 35.2 % (37-47); Hemoglobin 10.5 g/dL (12.0-15.0); Mean Corp Hgb Conc 29.8 g/dL (32-36); Mean Corpuscular Hgb 30.1 pg (27.0-32.0); Mean Corpuscular Volume 100.9 fL (81-99); Mean Platelet Vol. 9.4 fl (6.2-12.0); Monocyte# 1.26 X10^3/uL; Monocyte% 12.7 % (0-10); NRBC Flagged by Analyzer 0 % (0-5); Neutrophil # 7.17 X10^3/uL (2.7-7.7); Neutrophil % 72.1 % (47-70); POSITIVE COUNT YES; POSITIVE MORPHOLOGY YES; Platelet Count 540 K/mm3 (150-450); RBC Distribution Width CV 23.1 % (11.6-14.6); RBC Distribution Width SD 86.1 fl (35.1-43.9); Red Blood Count 3.49 M/mm3 (4.2-5.4)
[2024-04-04 05:59] LABS: Differential Indicated SCAN CRITERIA MET
[2024-04-04 06:24] LABS: Anion Gap 3 (5-15); BUN 22 mg/dL (7-18); BUN/Creat Ratio 31.2 RATIO (10-20); Calcium,Total 9.2 mg/dL (8.5-10.1); Chloride 102 mmol/L (98-107); EST Glomerular Filtration Rate 86 mL/min (>60); Est Glom Filt Rate - Afr Amer 104 mL/min (>60); Estimated Creatinine Clearance 51.04 ml/min; Glucose 102 mg/dL (74-106); Potassium 4.2 mmol/L (3.5-5.1); Sodium Level 137 mmol/L (136-145)
[2024-04-04 06:50] LABS: Anisocytosis 1+; Differential Comment SCANNED; Red Cell Morphology N CHROM NORMAL (NORM C&C)
[2024-04-04 06:51] LABS: Macrocytosis 1+
[2024-04-04 06:52] LABS: Ovalocyte RARE
[2024-04-04 07:35] VITALS: O2SAT 96
[2024-04-04 08:15] VITALS: BP 127/78; PULSE 97; RESP 16; TEMP 36.2; O2SAT 95
[2024-04-04] MEDS: MENTHOL 226.8 GM JAR 1 APPLIC TOPICAL ×2 (08:18→21:46)
[2024-04-04] MEDS: Ensure Plus High Protein 120 ML LIQUID PO ×3 (08:18→18:08)
[2024-04-04] MEDS: Furosemide 40 MG Tablet PO (08:21)
[2024-04-04] MEDS: Lidocaine 5% Patch 1 PATCH TOPICAL (08:21)
[2024-04-04] MEDS: DULoxetine Hcl 20 MG Capsule PO (08:21)
[2024-04-04] MEDS: Amiodarone 200 MG Tablet PO (08:21)
[2024-04-04] MEDS: Potassium Chloride Oral Tablet 20 MEQ PO ×2 (08:21→18:08)
[2024-04-04 08:22] VITALS: PULSE 97
[2024-04-04] MEDS: Acyclovir 200 MG Capsule 400 MG PO ×2 (08:22→21:46)
[2024-04-04] MEDS: Allopurinol 100 MG Tablet PO (08:22)
[2024-04-04] MEDS: Metoprolol(XL)Succ 50 MG Tablet PO (08:22)
[2024-04-04] MEDS: Gabapentin 100 MG Capsule PO (08:25)
[2024-04-04] MEDS: Tuberculin,Purif.prot.deriv. 50 TU/ML Vial 0.1 ML ID (08:25)
[2024-04-04 10:31] VITALS: BMI 23.9
[2024-04-04 13:16] VITALS: O2SAT 99
[2024-04-04] MEDS: guaiFENesin/Codeine 5 ML UDC 10 ML PO ×2 (14:47→23:17)
[2024-04-04 16:40] VITALS: RESP 16
[2024-04-04] MEDS: Warfarin (BKC) 3 MG Tablet PO (18:08)
[2024-04-04] MEDS: Mirtazapine 15 MG Tablet 7.5 MG PO (21:46)
[2024-04-04] MEDS: Gabapentin 300 MG Capsule PO (21:46)
--- NOTE | 2024-04-05 07:22 | NURSING ---
Offered covid vaccine, VIS provided. Resident and wanted to ask Dr. Emanuel if she should receive it, he doesn't feel she needs it at this time.
[2024-04-05 08:08] VITALS: BP 126/68; PULSE 85; RESP 17; TEMP 36.2; O2SAT 98
[2024-04-05] MEDS: Ensure Plus High Protein 120 ML LIQUID PO (08:14)
[2024-04-05] MEDS: Amiodarone 200 MG Tablet PO (08:14)
[2024-04-05 08:15] VITALS: PULSE 85
[2024-04-05] MEDS: Allopurinol 100 MG Tablet PO (08:15)
[2024-04-05] MEDS: DULoxetine Hcl 20 MG Capsule PO (08:15)
[2024-04-05] MEDS: MENTHOL 226.8 GM JAR 1 APPLIC TOPICAL ×2 (08:15→22:07)
[2024-04-05] MEDS: Gabapentin 100 MG Capsule PO (08:15)
[2024-04-05] MEDS: Furosemide 40 MG Tablet PO (08:15)
[2024-04-05] MEDS: Potassium Chloride Oral Tablet 20 MEQ PO ×2 (08:15→16:44)
[2024-04-05] MEDS: Lidocaine 5% Patch 1 PATCH TOPICAL (08:15)
[2024-04-05] MEDS: Metoprolol(XL)Succ 50 MG Tablet PO (08:15)
[2024-04-05] MEDS: Acyclovir 200 MG Capsule 400 MG PO ×2 (08:16→22:10)
--- NOTE | 2024-04-05 09:07 | CASEMGMT ---
Addendum entered by Beverley Pickett 04/05/24 14:35: Geraldine from [facility] determined pt is likely eligible for ALEYDA and will submit the application, but also noted that pt's [place] is showing active long-term care coverage. There are no further details on the plan information. Attempted to call [employer] to retrieve the details, but unsuccessful. [facility] can clinically accept, pending ALEYDA coverage and further information requested from . SW notified [facility] of potential LTC coverage. SW phoned to update on accept and suggested contact [employer] to obtain LTC coverage. to notify this worker with details. Will continue to follow. Original Note: Social Work IDT met with patient, and dtr for care plan meeting. Discussed patient's progress in PT/OT/ST/SN. Provided family with written communication on insurance process and copay coverage during stay. SW answered question to about cost of O2 prior to admission. [facility], the copay cost is about $17, which confirms the previous charges the was inquiring about. Pt continues the need for O2 during stay. Reminded to provide copies of pt's healthcare power of divorce attorney. After further discussion and clarification of the document, unsure pt has one completed. Dtr will assist in searching for it, but if not, they will notify this worker and SW can complete with pt. Pt agreed. SW educated to [facility] insurance with NRD 04/05 and continued stay is not guaranteed with each review. Discussed alternative DC plan if cannot care for pt at home. Educated to [facility] [employer] for assistance and SNF stay. Offered therapy training for family. Family inquired about PASSPORT services. SW educated that being a Medicaid service and offered to refer to [facility] to screen to determine pt's eligibility. All in agreement. stated he has to continue working and will need a caregiver during those times or pt would need to go to a SNF. SW educated to OOP cost or ALEYDA coverage and part B therapies through [facility]. SW provided list of providers including quality and resource data via [employer] [facility]. /pt's first choice is [facility]. SW to place referral, but also requested additional options. SW will continue to follow for DC planning assistance. - Referred to [facility] via secure email. Referred to [facility] via [facility]. Beverley Pickett, RACK WASHER BULWARK CARPENTER
[2024-04-05 09:49] VITALS: O2SAT 93
[2024-04-05] MEDS: oxyCODONE 5 MG Tablet PO (10:14)
[2024-04-05] MEDS: NYSTATIN 500,000 UNIT/5 ML UDC 500000 UNIT PO ×3 (12:21→22:07)
[2024-04-05] MEDS: Warfarin (BKC) 3 MG Tablet PO (16:44)
[2024-04-05] MEDS: Gabapentin 300 MG Capsule PO (22:07)
[2024-04-05] MEDS: Mirtazapine 15 MG Tablet 7.5 MG PO (22:09)
[2024-04-05] MEDS: guaiFENesin/Codeine 5 ML UDC 10 ML PO (22:59)
[2024-04-06] MEDS: NYSTATIN 500,000 UNIT/5 ML UDC 500000 UNIT PO ×4 (06:05→22:36)
[2024-04-06 06:47] LABS: International Normalized Ratio 3.6; Prothrombin Time (Protime)PT. 36.5 SECONDS (11.7-14.9)
[2024-04-06 07:55] VITALS: BP 91/50; PULSE 87; RESP 18; TEMP 36.8; O2SAT 94
[2024-04-06] MEDS: Lidocaine 5% Patch 1 PATCH TOPICAL (07:56)
[2024-04-06] MEDS: Potassium Chloride Oral Tablet 20 MEQ PO ×2 (07:57→16:54)
[2024-04-06] MEDS: Acyclovir 200 MG Capsule 400 MG PO ×2 (07:57→22:37)
[2024-04-06] MEDS: DULoxetine Hcl 20 MG Capsule PO (07:57)
[2024-04-06] MEDS: Ensure Plus High Protein 120 ML LIQUID PO ×3 (07:57→16:54)
[2024-04-06] MEDS: MENTHOL 226.8 GM JAR 1 APPLIC TOPICAL ×2 (07:57→22:37)
[2024-04-06] MEDS: Allopurinol 100 MG Tablet PO (07:57)
[2024-04-06 07:59] VITALS: O2SAT 97
[2024-04-06] MEDS: Gabapentin 100 MG Capsule PO (08:01)
[2024-04-06] MEDS: oxyCODONE 5 MG Tablet PO ×2 (11:31→15:24)
--- NOTE | 2024-04-06 13:57 | MDS.RN ---
Information for the MDS was obtained from review of the clinical record, interview of resident, staff, and direct observation of resident?s care.
[2024-04-06] MEDS: guaiFENesin/Codeine 5 ML UDC 10 ML PO (17:11)
--- NOTE | 2024-04-06 18:10 | RAD_ITS ---
STUDY: X-RAY CHEST REASON FOR EXAM: Female, 73 years old. Severe cough, ? aspiration. TECHNIQUE: PA and lateral COMPARISON: March 26, 2024. FINDINGS: Moderate-sized left pleural effusion with dense consolidation of left lower lobe and right to left mediastinal shift . Right lung is hyperinflated but clear Normal size heart. Normal mediastinum and veronica. Normal visualized pulmonary arteries. Mildly calcified aortic arch and descending thoracic aorta. Normal visualized thoracic spine. Normal visualized ribs, clavicles, and shoulders. Mediport catheter seen on the left with tip at the atrial caval junction There is no demonstrated abnormality of the visualized soft tissue structures of the upper abdomen. RAD/Chest PA and Lateral IMPRESSION: Moderate sized left pleural effusion and left lower lobe consolidation. Electronically Signed: Matteo Awan MD at 18:47 EST ,
[2024-04-06] MEDS: Gabapentin 300 MG Capsule PO (22:37)
[2024-04-06] MEDS: Mirtazapine 15 MG Tablet 7.5 MG PO (22:37)
[2024-04-06 22:50] VITALS: RESP 16
[2024-04-07] MEDS: NYSTATIN 500,000 UNIT/5 ML UDC 500000 UNIT PO ×4 (05:30→22:23)
[2024-04-07 08:25] VITALS: O2SAT 94
[2024-04-07 09:13] VITALS: BP 139/75; PULSE 111; RESP 18; TEMP 36.3; O2SAT 96
[2024-04-07] MEDS: Ensure Plus High Protein 120 ML LIQUID PO ×2 (09:18→13:26)
[2024-04-07] MEDS: Amiodarone 200 MG Tablet PO (09:18)
[2024-04-07 09:19] VITALS: PULSE 111
[2024-04-07] MEDS: Furosemide 40 MG Tablet PO (09:19)
[2024-04-07] MEDS: Metoprolol(XL)Succ 50 MG Tablet PO (09:19)
[2024-04-07] MEDS: Potassium Chloride Oral Tablet 20 MEQ PO ×2 (09:19→18:28)
[2024-04-07] MEDS: DULoxetine Hcl 20 MG Capsule PO (09:19)
[2024-04-07] MEDS: Acyclovir 200 MG Capsule 400 MG PO ×2 (09:19→22:24)
[2024-04-07] MEDS: Lidocaine 5% Patch 1 PATCH TOPICAL (09:19)
[2024-04-07] MEDS: Allopurinol 100 MG Tablet PO (09:19)
[2024-04-07] MEDS: MENTHOL 226.8 GM JAR 1 APPLIC TOPICAL ×2 (09:20→22:23)
[2024-04-07] MEDS: Gabapentin 100 MG Capsule PO (09:24)
--- NOTE | 2024-04-07 10:13 | NURSING ---
pt to have thoracentesis today at 1330, pt updated of time and notifying her
--- NOTE | 2024-04-07 10:38 | NURSING ---
radiology called and unable to do thoracentesis today d/t elevated INR per their scoring standards. may be able to do it on Wednesday if coumadin held. message left for Dr Emanuel
--- NOTE | 2024-04-07 11:58 | NURSING ---
updated on pt not getting thoracentesis today d/t elevated INR and will try on Wednesday as long as her INR is back down. ven on hold since yesterday.
[2024-04-07] MEDS: oxyCODONE 5 MG Tablet PO (13:26)
[2024-04-07] MEDS: Gabapentin 300 MG Capsule PO (22:23)
[2024-04-07] MEDS: Mirtazapine 15 MG Tablet 7.5 MG PO (22:24)
[2024-04-08] MEDS: oxyCODONE 5 MG Tablet PO (00:02)
[2024-04-08] MEDS: NYSTATIN 500,000 UNIT/5 ML UDC 500000 UNIT PO ×4 (05:10→22:07)
[2024-04-08 06:10] LABS: International Normalized Ratio 3.1; Prothrombin Time (Protime)PT. 32.7 SECONDS (11.7-14.9)
[2024-04-08 08:22] VITALS: O2SAT 95
[2024-04-08 08:26] VITALS: BP 128/64; RESP 18; TEMP 36.4; O2SAT 96
[2024-04-08] MEDS: Ensure Plus High Protein 120 ML LIQUID PO (08:28)
[2024-04-08] MEDS: DULoxetine Hcl 20 MG Capsule PO (08:28)
[2024-04-08] MEDS: Furosemide 40 MG Tablet PO (08:28)
[2024-04-08] MEDS: Amiodarone 200 MG Tablet PO (08:28)
[2024-04-08] MEDS: Potassium Chloride Oral Tablet 20 MEQ PO ×2 (08:28→17:54)
[2024-04-08] MEDS: Allopurinol 100 MG Tablet PO (08:28)
[2024-04-08 08:29] VITALS: PULSE 87
[2024-04-08] MEDS: Gabapentin 100 MG Capsule PO (08:29)
[2024-04-08] MEDS: Lidocaine 5% Patch 1 PATCH TOPICAL (08:29)
[2024-04-08] MEDS: Acyclovir 200 MG Capsule 400 MG PO ×2 (08:29→22:07)
[2024-04-08] MEDS: MENTHOL 226.8 GM JAR 1 APPLIC TOPICAL ×2 (08:29→22:08)
[2024-04-08] MEDS: Metoprolol(XL)Succ 50 MG Tablet PO (08:29)
[2024-04-08] MEDS: Mirtazapine 15 MG Tablet 7.5 MG PO (22:06)
[2024-04-08] MEDS: Gabapentin 300 MG Capsule PO (22:07)
[2024-04-09] MEDS: NYSTATIN 500,000 UNIT/5 ML UDC 500000 UNIT PO ×4 (05:26→20:24)
[2024-04-09 06:38] LABS: International Normalized Ratio 2.3
[2024-04-09 08:15] VITALS: O2SAT 96
[2024-04-09 09:01] VITALS: BP 120/80; PULSE 83; TEMP 36.3; O2SAT 96
[2024-04-09] MEDS: MENTHOL 226.8 GM JAR 1 APPLIC TOPICAL ×2 (09:12→20:24)
[2024-04-09] MEDS: DULoxetine Hcl 20 MG Capsule PO (09:12)
[2024-04-09] MEDS: Furosemide 40 MG Tablet PO (09:12)
[2024-04-09] MEDS: Allopurinol 100 MG Tablet PO (09:12)
[2024-04-09] MEDS: Lidocaine 5% Patch 1 PATCH TOPICAL (09:12)
[2024-04-09] MEDS: Potassium Chloride Oral Tablet 20 MEQ PO ×2 (09:12→18:23)
[2024-04-09] MEDS: Amiodarone 200 MG Tablet PO (09:12)
[2024-04-09 09:13] VITALS: PULSE 83
[2024-04-09] MEDS: Metoprolol(XL)Succ 50 MG Tablet PO (09:13)
[2024-04-09] MEDS: Acyclovir 200 MG Capsule 400 MG PO ×2 (09:13→20:25)
[2024-04-09] MEDS: Gabapentin 100 MG Capsule PO (09:13)
[2024-04-09] MEDS: Acetaminophen 500 MG Tablet 1000 MG PO (11:27)
[2024-04-09] MEDS: oxyCODONE 5 MG Tablet PO (11:28)
[2024-04-09] MEDS: Gabapentin 300 MG Capsule PO (20:24)
[2024-04-09] MEDS: Mirtazapine 15 MG Tablet 7.5 MG PO (20:25)
[2024-04-09 21:00] VITALS: PULSE 77; RESP 16; O2SAT 96
[2024-04-10] MEDS: oxyCODONE 5 MG Tablet PO (04:17)
[2024-04-10] MEDS: NYSTATIN 500,000 UNIT/5 ML UDC 500000 UNIT PO ×4 (04:17→22:06)
[2024-04-10 06:00] LABS: Prothrombin Time (Protime)PT. 23.2 SECONDS (11.7-14.9)
--- NOTE | 2024-04-10 08:41 | NURSING ---
pt to go off unit @ 2pm for thoracentesis today. INR 2.0 today.
[2024-04-10 08:44] VITALS: BP 134/74; PULSE 89; RESP 18; TEMP 36.4; O2SAT 98
[2024-04-10] MEDS: Ensure Plus High Protein 120 ML LIQUID PO ×2 (08:49→12:21)
[2024-04-10] MEDS: Allopurinol 100 MG Tablet PO (08:50)
[2024-04-10] MEDS: Amiodarone 200 MG Tablet PO (08:50)
[2024-04-10] MEDS: Potassium Chloride Oral Tablet 20 MEQ PO ×2 (08:50→18:08)
[2024-04-10] MEDS: Lidocaine 5% Patch 1 PATCH TOPICAL (08:50)
[2024-04-10 08:51] VITALS: PULSE 89
[2024-04-10] MEDS: Metoprolol(XL)Succ 50 MG Tablet PO (08:51)
[2024-04-10] MEDS: Furosemide 40 MG Tablet PO (08:51)
[2024-04-10] MEDS: DULoxetine Hcl 20 MG Capsule PO (08:51)
[2024-04-10] MEDS: MENTHOL 226.8 GM JAR 1 APPLIC TOPICAL ×2 (08:51→22:07)
[2024-04-10] MEDS: Acyclovir 200 MG Capsule 400 MG PO ×2 (08:51→22:07)
[2024-04-10] MEDS: Gabapentin 100 MG Capsule PO (08:53)
[2024-04-10 08:58] VITALS: RESP 18; O2SAT 98
[2024-04-10] MEDS: Acetaminophen 500 MG Tablet 1000 MG PO ×2 (09:14→22:06)
[2024-04-10 11:35] VITALS: O2SAT 99
--- NOTE | 2024-04-10 16:30 | NURSING ---
upset this afternoon since did not have thoracentesis, stated they said there was nothing there requesting to speak with dr ruiz. message left for dr ruiz
[2024-04-10] MEDS: Gabapentin 300 MG Capsule PO (22:06)
[2024-04-10] MEDS: Mirtazapine 15 MG Tablet 7.5 MG PO (22:06)
[2024-04-11] MEDS: NYSTATIN 500,000 UNIT/5 ML UDC 500000 UNIT PO ×4 (06:42→21:51)
[2024-04-11 07:52] VITALS: O2SAT 95
[2024-04-11 08:13] LABS: Hematocrit 35.3 % (37-47); Hemoglobin 10.6 g/dL (12.0-15.0); Mean Corpuscular Hgb 30.5 pg (27.0-32.0); Mean Corpuscular Volume 101.4 fL (81-99); Mean Platelet Vol. 9.5 fl (6.2-12.0); POSITIVE COUNT YES; POSITIVE MORPHOLOGY YES; Platelet Count 555 K/mm3 (150-450); RBC Distribution Width CV 22.1 % (11.6-14.6); RBC Distribution Width SD 81.8 fl (35.1-43.9); Red Blood Count 3.48 M/mm3 (4.2-5.4); White Blood Count 10.8 K/mm3 (4.4-11.0)
[2024-04-11 08:20] LABS: Differential Indicated MANUAL DIFF
[2024-04-11 08:25] VITALS: BP 120/59; PULSE 84; RESP 18; TEMP 36.3; O2SAT 100
[2024-04-11] MEDS: Furosemide 40 MG Tablet PO (08:27)
[2024-04-11] MEDS: Lidocaine 5% Patch 1 PATCH TOPICAL (08:27)
[2024-04-11 08:28] VITALS: PULSE 84
[2024-04-11] MEDS: DULoxetine Hcl 20 MG Capsule PO (08:28)
[2024-04-11] MEDS: Amiodarone 200 MG Tablet PO (08:28)
[2024-04-11] MEDS: Acyclovir 200 MG Capsule 400 MG PO ×2 (08:28→21:50)
[2024-04-11] MEDS: Potassium Chloride Oral Tablet 20 MEQ PO ×2 (08:28→17:26)
[2024-04-11] MEDS: Metoprolol(XL)Succ 50 MG Tablet PO (08:28)
[2024-04-11] MEDS: Allopurinol 100 MG Tablet PO (08:28)
[2024-04-11] MEDS: MENTHOL 226.8 GM JAR 1 APPLIC TOPICAL (08:28)
[2024-04-11] MEDS: Gabapentin 100 MG Capsule PO (08:31)
[2024-04-11] MEDS: Ensure Plus High Protein 120 ML LIQUID PO (08:35)
[2024-04-11 08:37] LABS: International Normalized Ratio 1.5; Prothrombin Time (Protime)PT. 18.3 SECONDS (11.7-14.9)
[2024-04-11 08:45] VITALS: O2SAT 98
[2024-04-11 09:15] LABS: Anion Gap 7 (5-15); BUN 32 mg/dL (7-18); BUN/Creat Ratio 39.1 RATIO (10-20); Chloride 105 mmol/L (98-107); Creatinine, Serum 0.82 mg/dL (0.55-1.02); EST Glomerular Filtration Rate 73 mL/min (>60); Est Glom Filt Rate - Afr Amer 88 mL/min (>60); Estimated Creatinine Clearance 49.79 ml/min; Glucose 106 mg/dL (74-106); Potassium 4.2 mmol/L (3.5-5.1); Sodium Level 140 mmol/L (136-145)
[2024-04-11 09:34] LABS: Eosinophil 2 % (0-5); Lymphocyte 8 % (19-41); Metamyelocyte 3 % (0-1); Monocyte 13 % (0-10); Myelocyte 2 % (0-0); Neutrophil-Band 1 % (0-5); Neutrophil-Segmented 71 % (47-70); Total Cells Counted 100 (MANUAL DIFF)
[2024-04-11 09:40] LABS: Polychromasia 1+
[2024-04-11 09:41] LABS: Anisocytosis 2+; Macrocytosis 1+; Spherocyte 1+
[2024-04-11 09:43] LABS: Absolute Lymphocyte Count 0.86 X10^3/uL (0.83-4.51); Absolute Neutrophil Count 7.8 X10^3/uL (2.0-7.7)
[2024-04-11 10:00] VITALS: BMI 24.2
[2024-04-11] MEDS: Acetaminophen 500 MG Tablet 1000 MG PO ×2 (12:51→21:50)
--- NOTE | 2024-04-11 13:19 | CASEMGMT ---
Addendum entered by Beverley Pickett 04/12/24 16:52: Late entry from 04/11/24: [facility] has not received the documents from needed for finances to official accept pt. SW spoke with at pt's bedside to update. became defensive stating he did provide them with paperwork, left a message with a worker yesterday, and had not received a return call. SW suggested contacting [facility] again, as this is what is needed for an official acceptance. Reminding insurance may issue a DC date and only 3 day notice is given. SW inquired if contacted [facility] for LTC coverage. denied and asked if this worker could do it. SW reminded our installation coordinator attempted to call to get benefit information, but was unsuccessful and pt/ needs to call. SW reiterated this information is important to obtain for potential coverage for SNF stay. agreed to contact both parties. SW appreciative. Will continue to follow. Original Note: Social Work SW followed up with [facility] via [facility] to ensure pt can admit once insurance issues LCD. Will await outcome. Beverley Pickett, FELICE DYEW
[2024-04-11 19:58] VITALS: RESP 18
[2024-04-11] MEDS: Mirtazapine 15 MG Tablet 7.5 MG PO (21:50)
[2024-04-11] MEDS: Gabapentin 300 MG Capsule PO (21:51)
[2024-04-11] MEDS: oxyCODONE 5 MG Tablet PO (23:35)
[2024-04-12] MEDS: NYSTATIN 500,000 UNIT/5 ML UDC 500000 UNIT PO ×4 (05:10→20:49)
[2024-04-12] MEDS: Amiodarone 200 MG Tablet PO (08:53)
[2024-04-12] MEDS: MENTHOL 226.8 GM JAR 1 APPLIC TOPICAL (08:54)
[2024-04-12] MEDS: DULoxetine Hcl 20 MG Capsule PO (08:54)
[2024-04-12] MEDS: Furosemide 40 MG Tablet PO (08:54)
[2024-04-12] MEDS: Allopurinol 100 MG Tablet PO (08:54)
[2024-04-12] MEDS: Lidocaine 5% Patch 1 PATCH TOPICAL (08:54)
[2024-04-12] MEDS: Potassium Chloride Oral Tablet 20 MEQ PO ×2 (08:54→18:02)
[2024-04-12 08:55] VITALS: BP 105/59; PULSE 85
[2024-04-12] MEDS: Acyclovir 200 MG Capsule 400 MG PO ×2 (08:55→20:51)
[2024-04-12] MEDS: Metoprolol(XL)Succ 50 MG Tablet PO (08:55)
[2024-04-12] MEDS: Gabapentin 100 MG Capsule PO (08:58)
[2024-04-12] MEDS: Acetaminophen 500 MG Tablet 1000 MG PO (11:49)
[2024-04-12] MEDS: Ensure Plus High Protein 120 ML LIQUID PO (11:51)
[2024-04-12 14:23] LABS: Pathologist Review Reviewed
[2024-04-12 14:24] VITALS: BP 102/52; PULSE 76; RESP 18; TEMP 36.7; O2SAT 98
[2024-04-12] MEDS: oxyCODONE 5 MG Tablet PO (19:43)
[2024-04-12] MEDS: guaiFENesin/Codeine 5 ML UDC 10 ML PO (20:47)
[2024-04-12] MEDS: Gabapentin 300 MG Capsule PO (20:49)
[2024-04-12] MEDS: Mirtazapine 15 MG Tablet 7.5 MG PO (20:51)
--- NOTE | 2024-04-12 23:24 | NURSING ---
Silvestre water protocol followed after 2100 med pass as ordered.
[2024-04-13] MEDS: NYSTATIN 500,000 UNIT/5 ML UDC 500000 UNIT PO ×3 (05:32→17:23)
[2024-04-13] MEDS: Lidocaine 5% Patch 1 PATCH TOPICAL (08:15)
[2024-04-13] MEDS: Potassium Chloride Oral Tablet 20 MEQ PO ×2 (08:15→17:23)
[2024-04-13] MEDS: Amiodarone 200 MG Tablet PO (08:15)
[2024-04-13] MEDS: Allopurinol 100 MG Tablet PO (08:15)
[2024-04-13 08:19] VITALS: BP 103/51; PULSE 82; RESP 16; TEMP 36.6; O2SAT 97
[2024-04-13] MEDS: Furosemide 40 MG Tablet PO (08:19)
[2024-04-13] MEDS: Metoprolol(XL)Succ 50 MG Tablet PO (08:19)
[2024-04-13] MEDS: Acyclovir 200 MG Capsule 400 MG PO ×2 (08:19→20:47)
[2024-04-13] MEDS: DULoxetine Hcl 20 MG Capsule PO (08:19)
[2024-04-13] MEDS: MENTHOL 226.8 GM JAR 1 APPLIC TOPICAL ×2 (08:20→20:47)
[2024-04-13] MEDS: Ensure Plus High Protein 120 ML LIQUID PO ×2 (08:20→12:04)
[2024-04-13] MEDS: Gabapentin 100 MG Capsule PO (08:22)
[2024-04-13 08:32] LABS: International Normalized Ratio 1.3; Prothrombin Time (Protime)PT. 16.1 SECONDS (11.7-14.9)
[2024-04-13] MEDS: oxyCODONE 5 MG Tablet PO (10:34)
[2024-04-13 11:15] VITALS: O2SAT 96
--- NOTE | 2024-04-13 16:40 | CASEMGMT ---
Social Work SW updated [facility] that insurance approved with NRD 04/19 Beverley Pickett TRACK LINER OPERATOR TRACTOR TRAILER TECHNICIAN
[2024-04-13] MEDS: Mirtazapine 15 MG Tablet 7.5 MG PO (20:47)
[2024-04-13] MEDS: Gabapentin 300 MG Capsule PO (20:47)
[2024-04-14 08:03] VITALS: BP 124/67; PULSE 79; RESP 18; TEMP 36.9; O2SAT 97
[2024-04-14] MEDS: Amiodarone 200 MG Tablet PO (08:07)
[2024-04-14] MEDS: Allopurinol 100 MG Tablet PO (08:07)
[2024-04-14] MEDS: Potassium Chloride Oral Tablet 20 MEQ PO ×2 (08:07→16:56)
[2024-04-14 08:08] VITALS: PULSE 79
[2024-04-14] MEDS: Metoprolol(XL)Succ 50 MG Tablet PO (08:08)
[2024-04-14] MEDS: DULoxetine Hcl 20 MG Capsule PO (08:08)
[2024-04-14] MEDS: Lidocaine 5% Patch 1 PATCH TOPICAL (08:08)
[2024-04-14] MEDS: MENTHOL 226.8 GM JAR 1 APPLIC TOPICAL ×2 (08:08→21:53)
[2024-04-14] MEDS: Furosemide 40 MG Tablet PO (08:08)
[2024-04-14] MEDS: Acyclovir 200 MG Capsule 400 MG PO ×2 (08:08→21:54)
[2024-04-14] MEDS: Gabapentin 100 MG Capsule PO (08:10)
--- NOTE | 2024-04-14 10:40 | CASEMGMT ---
Social Work SW notified by [facility] that the provided all needed financial documents and they can officially accept. They requested updated clinicals. SW sent via [employer]. Will continue to follow. Beverley Pickett MSW DRIVER RETRAINING INSTRUCTOR
[2024-04-14] MEDS: oxyCODONE 5 MG Tablet PO (12:57)
[2024-04-14 19:30] VITALS: O2SAT 93
[2024-04-14] MEDS: Gabapentin 300 MG Capsule PO (21:53)
[2024-04-14] MEDS: Mirtazapine 15 MG Tablet 7.5 MG PO (21:53)
[2024-04-15 09:04] VITALS: BP 114/56; PULSE 85; RESP 18; TEMP 35.9; O2SAT 97
[2024-04-15 09:08] VITALS: PULSE 85
[2024-04-15] MEDS: Amiodarone 200 MG Tablet PO (09:08)
[2024-04-15] MEDS: Metoprolol(XL)Succ 50 MG Tablet PO (09:08)
[2024-04-15] MEDS: Furosemide 40 MG Tablet PO (09:08)
[2024-04-15] MEDS: Potassium Chloride Oral Tablet 20 MEQ PO ×2 (09:08→17:18)
[2024-04-15] MEDS: Lidocaine 5% Patch 1 PATCH TOPICAL (09:08)
[2024-04-15] MEDS: Acyclovir 200 MG Capsule 400 MG PO ×2 (09:08→21:31)
[2024-04-15] MEDS: Allopurinol 100 MG Tablet PO (09:08)
[2024-04-15] MEDS: DULoxetine Hcl 20 MG Capsule PO (09:09)
[2024-04-15] MEDS: MENTHOL 226.8 GM JAR 1 APPLIC TOPICAL ×2 (09:09→21:31)
[2024-04-15] MEDS: Gabapentin 100 MG Capsule PO (09:10)
--- NOTE | 2024-04-15 11:18 | NURSING ---
DR AKERS NOTIFIED OF INR 1.3 ON 04/13 & PT REQUESTING LIDODERM X2 PATCHES TO BACK INSTEAD OF ONE. NEW ORDER FOR ANOTHER PATCH & CONTINUE JANTOVEN ORDERED FOR NOW, INR RECHECK ON WEDNESDAY
[2024-04-15] MEDS: oxyCODONE 5 MG Tablet PO ×3 (11:22→21:30)
[2024-04-15 19:50] VITALS: O2SAT 94
[2024-04-15] MEDS: Gabapentin 300 MG Capsule PO (21:30)
[2024-04-15] MEDS: Mirtazapine 15 MG Tablet 7.5 MG PO (21:31)
[2024-04-15 21:45] VITALS: RESP 17
[2024-04-16 08:03] VITALS: BP 111/63; PULSE 88; RESP 17; TEMP 36.8; O2SAT 100
[2024-04-16] MEDS: Potassium Chloride Oral Tablet 20 MEQ PO ×2 (08:05→17:12)
[2024-04-16] MEDS: Allopurinol 100 MG Tablet PO (08:05)
[2024-04-16] MEDS: MENTHOL 226.8 GM JAR 1 APPLIC TOPICAL ×2 (08:05→21:50)
[2024-04-16] MEDS: Amiodarone 200 MG Tablet PO (08:05)
[2024-04-16 08:06] VITALS: PULSE 88
[2024-04-16] MEDS: Metoprolol(XL)Succ 50 MG Tablet PO (08:06)
[2024-04-16] MEDS: Lidocaine 5% Patch 2 PATCH TOPICAL (08:06)
[2024-04-16] MEDS: Furosemide 40 MG Tablet PO (08:06)
[2024-04-16] MEDS: DULoxetine Hcl 20 MG Capsule PO (08:06)
[2024-04-16] MEDS: Acyclovir 200 MG Capsule 400 MG PO ×2 (08:06→21:50)
[2024-04-16] MEDS: Gabapentin 100 MG Capsule PO (08:08)
[2024-04-16 16:48] VITALS: O2SAT 96
[2024-04-16] MEDS: Mirtazapine 15 MG Tablet 7.5 MG PO (21:49)
[2024-04-16] MEDS: Gabapentin 300 MG Capsule PO (21:49)
[2024-04-16] MEDS: oxyCODONE 5 MG Tablet PO (21:50)
[2024-04-16 22:02] VITALS: PULSE 80; RESP 16; O2SAT 98
[2024-04-17 06:05] LABS: International Normalized Ratio 1.4; Prothrombin Time (Protime)PT. 17.6 SECONDS (11.7-14.9)
[2024-04-17 08:22] VITALS: BP 98/56; PULSE 90; RESP 18; TEMP 36.3; O2SAT 98
[2024-04-17 08:27] VITALS: PULSE 90
[2024-04-17] MEDS: Allopurinol 100 MG Tablet PO (08:27)
[2024-04-17] MEDS: DULoxetine Hcl 20 MG Capsule PO (08:27)
[2024-04-17] MEDS: Amiodarone 200 MG Tablet PO (08:27)
[2024-04-17] MEDS: Potassium Chloride Oral Tablet 20 MEQ PO ×2 (08:27→16:54)
[2024-04-17] MEDS: Metoprolol(XL)Succ 50 MG Tablet PO (08:27)
[2024-04-17] MEDS: Lidocaine 5% Patch 2 PATCH TOPICAL (08:28)
[2024-04-17] MEDS: Acyclovir 200 MG Capsule 400 MG PO ×2 (08:28→21:50)
[2024-04-17] MEDS: MENTHOL 226.8 GM JAR 1 APPLIC TOPICAL ×2 (08:29→21:50)
[2024-04-17] MEDS: Gabapentin 100 MG Capsule PO (08:30)
[2024-04-17 10:14] VITALS: BP 106/58; PULSE 87
[2024-04-17] MEDS: Furosemide 40 MG Tablet PO (10:15)
[2024-04-17 10:29] VITALS: RESP 17; O2SAT 95
[2024-04-17] MEDS: oxyCODONE 5 MG Tablet PO (12:22)
[2024-04-17 14:02] VITALS: O2SAT 98
--- NOTE | 2024-04-17 16:20 | NURSING ---
Dr Emanuel reviewed INR 1.4 this AM, gilltoven increased 3mg, pt and updated
[2024-04-17] MEDS: Warfarin (BKC) 3 MG Tablet PO (16:54)
[2024-04-17] MEDS: Gabapentin 300 MG Capsule PO (21:50)
[2024-04-17] MEDS: Mirtazapine 15 MG Tablet 7.5 MG PO (21:50)
[2024-04-17] MEDS: Acetaminophen 500 MG Tablet 1000 MG PO (22:04)
[2024-04-18 06:01] LABS: Absolute Lymphocyte Count 0.95 X10^3/uL (0.83-4.51); Absolute Neutrophil Count 5.2 X10^3/uL (2.0-7.7); Basophil# 0.05 X10^3/uL; Basophil% 0.6 % (0-1); Eosinophil# 0.38 X10^3/uL; Eosinophils% 4.6 % (0-5); Hematocrit 30.6 % (37-47); Hemoglobin 9.1 g/dL (12.0-15.0); Lymphocyte # 0.95 X10^3/ul (0.83-4.51); Lymphocyte % 11.6 % (19-41); Mean Corp Hgb Conc 29.7 g/dL (32-36); Mean Corpuscular Hgb 30.4 pg (27.0-32.0); Mean Corpuscular Volume 102.3 fL (81-99); Monocyte# 1.25 X10^3/uL; Monocyte% 15.2 % (0-10); NRBC Flagged by Analyzer 0 % (0-5); Neutrophil # 5.23 X10^3/uL (2.7-7.7); Neutrophil % 63.6 % (47-70); POSITIVE MORPHOLOGY YES; Platelet Count 379 K/mm3 (150-450); RBC Distribution Width CV 20.8 % (11.6-14.6); RBC Distribution Width SD 77.6 fl (35.1-43.9); Red Blood Count 2.99 M/mm3 (4.2-5.4); White Blood Count 8.2 K/mm3 (4.4-11.0)
[2024-04-18 06:13] LABS: Differential Indicated SCAN CRITERIA MET
[2024-04-18 06:39] LABS: Anion Gap 6 (5-15); BUN 47 mg/dL (7-18); BUN/Creat Ratio 57.2 RATIO (10-20); Calcium,Total 9.4 mg/dL (8.5-10.1); Chloride 102 mmol/L (98-107); Creatinine, Serum 0.82 mg/dL (0.55-1.02); EST Glomerular Filtration Rate 72 mL/min (>60); Est Glom Filt Rate - Afr Amer 87 mL/min (>60); Estimated Creatinine Clearance 49.79 ml/min; Glucose 102 mg/dL (74-106); Sodium Level 140 mmol/L (136-145)
[2024-04-18 06:55] VITALS: O2SAT 95
[2024-04-18 08:34] VITALS: BP 95/59; PULSE 79; RESP 18; TEMP 36.9; O2SAT 100
[2024-04-18] MEDS: Allopurinol 100 MG Tablet PO (08:34)
[2024-04-18] MEDS: DULoxetine Hcl 20 MG Capsule PO (08:34)
[2024-04-18] MEDS: Lidocaine 5% Patch 2 PATCH TOPICAL (08:34)
[2024-04-18] MEDS: Acyclovir 200 MG Capsule 400 MG PO ×2 (08:34→20:59)
[2024-04-18] MEDS: Potassium Chloride Oral Tablet 20 MEQ PO ×2 (08:34→16:11)
[2024-04-18 08:35] VITALS: BP 86/52
[2024-04-18] MEDS: MENTHOL 226.8 GM JAR 1 APPLIC TOPICAL ×2 (08:35→20:59)
[2024-04-18] MEDS: Gabapentin 100 MG Capsule PO (08:46)
[2024-04-18 08:50] VITALS: BP 95/59; PULSE 75
[2024-04-18 08:54] LABS: Anisocytosis 2+; Differential Comment SCANNED; Macrocytosis 1+; Platelet Estimate ADEQUATE (ADEQ); Polychromasia 1+
[2024-04-18 08:55] LABS: Schistocytes RARE
[2024-04-18 10:00] VITALS: BMI 24.3
[2024-04-18] MEDS: oxyCODONE 5 MG Tablet PO (11:18)
--- NOTE | 2024-04-18 12:32 | CASEMGMT ---
Social Work [employer] rep updated this worker that pt was approved for LTC Medicaid, effective 03/15/24. Beverley Pickett TILE EDGER BOOKMAKER MAP
[2024-04-18] MEDS: Acetaminophen 500 MG Tablet 1000 MG PO (16:11)
[2024-04-18] MEDS: Warfarin (BKC) 3 MG Tablet PO (16:11)
[2024-04-18] MEDS: Mirtazapine 15 MG Tablet 7.5 MG PO (20:59)
[2024-04-18] MEDS: Gabapentin 300 MG Capsule PO (21:00)
[2024-04-18 21:09] VITALS: PULSE 88; RESP 16; O2SAT 97
[2024-04-19 06:23] LABS: Hematocrit 30.3 % (37-47); Hemoglobin 9.1 g/dL (12.0-15.0)
[2024-04-19 09:55] VITALS: BP 122/73; PULSE 97; RESP 18; TEMP 36.4; O2SAT 97
[2024-04-19] MEDS: Amiodarone 200 MG Tablet 100 MG PO (09:59)
[2024-04-19] MEDS: Potassium Chloride Oral Tablet 20 MEQ PO ×2 (10:00→16:11)
[2024-04-19] MEDS: Allopurinol 100 MG Tablet PO (10:01)
[2024-04-19] MEDS: MENTHOL 226.8 GM JAR 1 APPLIC TOPICAL (10:01)
[2024-04-19] MEDS: DULoxetine Hcl 20 MG Capsule PO (10:01)
[2024-04-19] MEDS: Lidocaine 5% Patch 2 PATCH TOPICAL (10:01)
[2024-04-19 10:02] VITALS: PULSE 97
[2024-04-19] MEDS: Gabapentin 100 MG Capsule PO (10:02)
[2024-04-19] MEDS: Acyclovir 200 MG Capsule 400 MG PO ×2 (10:02→21:58)
[2024-04-19] MEDS: Metoprolol(XL)Succ 25 MG Tablet PO (10:02)
[2024-04-19] MEDS: oxyCODONE 5 MG Tablet PO ×2 (15:35→21:57)
[2024-04-19] MEDS: Warfarin (BKC) 3 MG Tablet PO (16:11)
[2024-04-19] MEDS: Gabapentin 300 MG Capsule PO (21:56)
[2024-04-19] MEDS: Mirtazapine 15 MG Tablet 7.5 MG PO (21:58)
[2024-04-20 07:56] LABS: International Normalized Ratio 1.8
[2024-04-20 09:29] VITALS: BP 122/70; PULSE 87; RESP 18; TEMP 36.6; O2SAT 98
[2024-04-20] MEDS: Amiodarone 200 MG Tablet 100 MG PO (09:34)
[2024-04-20 09:35] VITALS: PULSE 87
[2024-04-20] MEDS: Acyclovir 200 MG Capsule 400 MG PO ×2 (09:35→21:19)
[2024-04-20] MEDS: Metoprolol(XL)Succ 25 MG Tablet PO (09:35)
[2024-04-20] MEDS: MENTHOL 226.8 GM JAR 1 APPLIC TOPICAL ×2 (09:35→21:16)
[2024-04-20] MEDS: Allopurinol 100 MG Tablet PO (09:35)
[2024-04-20] MEDS: Potassium Chloride Oral Tablet 20 MEQ PO ×2 (09:35→17:11)
[2024-04-20] MEDS: Lidocaine 5% Patch 2 PATCH TOPICAL (09:35)
[2024-04-20] MEDS: DULoxetine Hcl 20 MG Capsule PO (09:35)
[2024-04-20] MEDS: Gabapentin 100 MG Capsule PO (09:36)
[2024-04-20] MEDS: oxyCODONE 5 MG Tablet PO ×2 (10:57→17:11)
[2024-04-20] MEDS: Warfarin (BKC) 3 MG Tablet PO (17:11)
[2024-04-20] MEDS: Mirtazapine 15 MG Tablet 7.5 MG PO (21:17)
[2024-04-20] MEDS: Gabapentin 300 MG Capsule PO (21:17)
[2024-04-21 08:53] VITALS: BP 120/63; PULSE 98; RESP 18; TEMP 36.8; O2SAT 97
[2024-04-21] MEDS: Potassium Chloride Oral Tablet 20 MEQ PO ×2 (08:58→17:48)
[2024-04-21] MEDS: Acetaminophen 500 MG Tablet 1000 MG PO (08:58)
[2024-04-21] MEDS: oxyCODONE 5 MG Tablet PO ×2 (08:58→20:11)
[2024-04-21] MEDS: Amiodarone 200 MG Tablet 100 MG PO (08:58)
[2024-04-21 08:59] VITALS: PULSE 98
[2024-04-21] MEDS: Acyclovir 200 MG Capsule 400 MG PO ×2 (08:59→20:11)
[2024-04-21] MEDS: MENTHOL 226.8 GM JAR 1 APPLIC TOPICAL ×2 (08:59→20:12)
[2024-04-21] MEDS: DULoxetine Hcl 20 MG Capsule PO (08:59)
[2024-04-21] MEDS: Metoprolol(XL)Succ 25 MG Tablet PO (08:59)
[2024-04-21] MEDS: Lidocaine 5% Patch 2 PATCH TOPICAL (08:59)
[2024-04-21] MEDS: Allopurinol 100 MG Tablet PO (08:59)
[2024-04-21] MEDS: Gabapentin 100 MG Capsule PO (09:01)
[2024-04-21 15:22] VITALS: O2SAT 99
[2024-04-21] MEDS: Warfarin (BKC) 3 MG Tablet PO (17:48)
[2024-04-21] MEDS: Gabapentin 300 MG Capsule PO (20:11)
[2024-04-21] MEDS: Mirtazapine 15 MG Tablet 7.5 MG PO (20:12)
[2024-04-22 06:58] VITALS: O2SAT 96
[2024-04-22] MEDS: Potassium Chloride Oral Tablet 20 MEQ PO ×2 (08:59→16:51)
[2024-04-22] MEDS: Acyclovir 200 MG Capsule 400 MG PO ×2 (08:59→22:23)
[2024-04-22] MEDS: Amiodarone 200 MG Tablet 100 MG PO (08:59)
[2024-04-22] MEDS: Allopurinol 100 MG Tablet PO (09:00)
[2024-04-22 09:01] VITALS: PULSE 96
[2024-04-22] MEDS: Lidocaine 5% Patch 2 PATCH TOPICAL (09:01)
[2024-04-22] MEDS: Metoprolol(XL)Succ 25 MG Tablet PO (09:01)
[2024-04-22] MEDS: MENTHOL 226.8 GM JAR 1 APPLIC TOPICAL ×2 (09:01→22:22)
[2024-04-22] MEDS: Gabapentin 100 MG Capsule PO (09:01)
[2024-04-22] MEDS: DULoxetine Hcl 20 MG Capsule PO (09:01)
[2024-04-22 10:39] VITALS: BP 113/63; PULSE 96; RESP 18; TEMP 36.3; O2SAT 99
[2024-04-22] MEDS: oxyCODONE 5 MG Tablet PO ×2 (14:24→22:23)
[2024-04-22] MEDS: Warfarin (BKC) 3 MG Tablet PO (16:50)
[2024-04-22] MEDS: Gabapentin 300 MG Capsule PO (22:22)
[2024-04-22] MEDS: Mirtazapine 15 MG Tablet 7.5 MG PO (22:25)
[2024-04-22] MEDS: 0.9% Saline Lock 10 ML Syringe IV (22:26)
[2024-04-22 22:30] VITALS: O2SAT 97
[2024-04-23 04:15] VITALS: O2SAT 93
[2024-04-23] MEDS: oxyCODONE 5 MG Tablet PO ×2 (04:22→17:13)
[2024-04-23 08:02] VITALS: O2SAT 93
[2024-04-23] MEDS: Allopurinol 100 MG Tablet PO (09:37)
[2024-04-23] MEDS: MENTHOL 226.8 GM JAR 1 APPLIC TOPICAL ×2 (09:37→21:38)
[2024-04-23] MEDS: Potassium Chloride Oral Tablet 20 MEQ PO ×2 (09:37→17:13)
[2024-04-23] MEDS: Lidocaine 5% Patch 2 PATCH TOPICAL (09:37)
[2024-04-23] MEDS: DULoxetine Hcl 20 MG Capsule PO (09:37)
[2024-04-23] MEDS: Amiodarone 200 MG Tablet 100 MG PO (09:37)
[2024-04-23 09:38] VITALS: PULSE 102
[2024-04-23] MEDS: Gabapentin 100 MG Capsule PO (09:38)
[2024-04-23] MEDS: Metoprolol(XL)Succ 25 MG Tablet PO (09:38)
[2024-04-23] MEDS: Acyclovir 200 MG Capsule 400 MG PO ×2 (09:38→21:38)
[2024-04-23 09:59] VITALS: BP 106/56; PULSE 102; RESP 18; TEMP 36.3; O2SAT 94
[2024-04-23] MEDS: Warfarin (BKC) 3 MG Tablet PO (17:12)
[2024-04-23] MEDS: Mirtazapine 15 MG Tablet 7.5 MG PO (21:37)
[2024-04-23] MEDS: Gabapentin 300 MG Capsule PO (21:37)
[2024-04-24 05:55] LABS: International Normalized Ratio 2.3; Prothrombin Time (Protime)PT. 25.6 SECONDS (11.7-14.9)
--- NOTE | 2024-04-24 07:30 | PN.TCU_ITS ---
Subjective Subjective Resident seen, examined. She c/o back pain, but notes pain medications are effective. 03/30/2024 FEES: Recommendations Diet: Soft and Bite Sized Textures and Mildly Thick Liquids Comments: Very small bites - one piece at a time with soft textures i.e. peaches Silvestre free water protocol (teaspoon sized sips from an open cup or off a spoon) o.k. after through oral care and 30 mins after post non-water P.O. intake Compensatory Strategies: Small Bites, Small Sips, Slow Rate, Sitting upright and Assist with verbal cues to use recommended strategies Supervision: 1:1 Direct Supervision Recommend Repeat Instrumental Swallow Assessment: TBD Need for Skilled Speech Therapy Services: Yes Education Completed: 1. Described result of evaluation. and 7. Pt requires further education on strategies & risks. 04/10/2024 Ultrasound thoracentesis unable 2/ lack of fluid. 04/21/2024 MRI brain: IMPRESSION: Left head of caudate hyperenhancing lesions suspicious for a mass or metastatic implant. Objective Data Objective Data Vital Signs: Vital Signs Temp Pulse Resp BP Pulse Ox O2 Del Method O2 Flow Rate 97.3 F L 102 H 18 106/56 L 94 Nasal Cannula 3 04/23/24 09:59 04/23/24 09:59 04/23/24 09:59 04/23/24 09:59 04/23/24 09:59 04/23/24 09:59 04/23/24 09:59 FiO2 96 04/07/24 09:13 Oxygen Flow Rate (L/min) 3 Oxygen Delivery Method Nasal Cannula Weight: 62.46 kg Body Mass Index (BMI) 24.3 Intake & Output: Intake and Output for Last 24 Hours 04/22/24 04/23/24 04/24/24 23:59 23:59 23:59 Intake Total 960 / 960 600 / 600 Balance 960 / 960 600 / 600 Lab / Micro Data 04/19/24 05:31 04/18/24 05:23 Labs: Laboratory Results - last 24 hr 04/24/24 05:21: PT 25.6 H, INR 2.3 Physical Exam Const alert General Appearance: cooperative HEENT normocephalic Eyes PERRL and EOMs intact bilaterally Neck supple, no JVD and no carotid bruits Resp normal respiratory effort, normal air movement and clear to auscultation bilaterally Cardio regular rate and regular rhythm GI normal to inspection, nondistended, normoactive bowel sounds, non-tender and non-distended Extremity normal capillary refill General Extremity: Negative for edema Skin no rashes or lesions noted General Skin Exam: no breakdown Psych affect normal Appearance: appropriate Assessment & Plan Assessment/Plan (1) Debility: (2) Frequent falls: (3) Failure to thrive: (4) Acute anemia: (5) Bilateral pleural effusion: (6) 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: (7) Neuropathic pain: (8) Gout: (9) Hypokalemia: (10) Essential (primary) hypertension: (11) Depression: (12) Atrial fibrillation: PLAN: Plan 73 year old female with below past medical history hospitalized for multiple falls, failure to thrive, complicated by acute anemia requiring transfusion, bilateral pleural effusion, appetite loss, admitted to TCU with debility, here for rehabilitation, strengthening, prior to discharge home with . * Debility - PT/OT. * Pain - Tylenol 1000mg q6 prn pain (1-5), Oxycodone 5mg q4 prn pain (6-10), Lidoderm 2 patches td daily prn, Emla 5gm topical x 1 prn. * Bowel - Senna/colace 2 tablets bid prn. * Adult immunization - Administer pneumonia vaccine, covid vaccine, flu vaccine as appropriate. * DVT prophylaxis - on Warfarin. * Shingles prophylaxis - Acyclovir 400mg bid. * Shortness of breath - Albuterol 2.5mg neb q2 prn. * Gout - Allopurinol 100mg daily. * Atrial fibrillation - Metoprolol succinate 25mg daily, Amiodarne 100mg daily, Warfarin 3mg daily, INR 2.3. * Depression - Duloxetine 20mg daily, stable chronic care home use, GDR not recommended. * Bilateral pleural effusion - Furosemide 40mg daily. * Neuropathic pain - Gabapentin 100mg, 300mg qhs. * Appetite loss - Mirtazapine 7.5mg qhs, GDR if no improvement in symptoms. * Hypokalemia - KCL 20meq bidcm. * Cough - Robitussin DM 10mL q6 prn. * Skin irritation - Calmoseptine topical tid prn.
[2024-04-24] MEDS: Lidocaine 5% Patch 2 PATCH TOPICAL (08:42)
[2024-04-24 08:43] VITALS: BP 119/67; PULSE 85
[2024-04-24] MEDS: Acyclovir 200 MG Capsule 400 MG PO ×2 (08:43→21:56)
[2024-04-24] MEDS: Metoprolol(XL)Succ 25 MG Tablet PO (08:43)
[2024-04-24] MEDS: Amiodarone 200 MG Tablet 100 MG PO (08:43)
[2024-04-24] MEDS: Potassium Chloride Oral Tablet 20 MEQ PO ×2 (08:43→16:29)
[2024-04-24] MEDS: DULoxetine Hcl 20 MG Capsule PO (08:43)
[2024-04-24] MEDS: Allopurinol 100 MG Tablet PO (08:44)
[2024-04-24] MEDS: Gabapentin 100 MG Capsule PO (08:48)
[2024-04-24] MEDS: MENTHOL 226.8 GM JAR 1 APPLIC TOPICAL (08:52)
[2024-04-24 09:11] VITALS: O2SAT 94
[2024-04-24 12:28] VITALS: O2SAT 97
[2024-04-24 15:26] VITALS: BP 117/53; PULSE 86; RESP 15; TEMP 36.4; O2SAT 98
[2024-04-24] MEDS: Warfarin (BKC) 3 MG Tablet PO (16:29)
[2024-04-24] MEDS: BENZOCAINE/MENTHOL 1 LOZENGE MUCOUS MEM ×2 (19:41→21:56)
[2024-04-24] MEDS: Gabapentin 300 MG Capsule PO (21:56)
[2024-04-24] MEDS: Mirtazapine 15 MG Tablet 7.5 MG PO (21:56)
[2024-04-25] MEDS: BENZOCAINE/MENTHOL 1 LOZENGE MUCOUS MEM (00:14)
[2024-04-25 05:30] VITALS: RESP 18
[2024-04-25 06:24] LABS: Absolute Neutrophil Count 7.4 X10^3/uL (2.0-7.7); Anion Gap 6 (5-15); BUN 12 mg/dL (7-18); Basophil% 0.9 % (0-1); Calcium,Total 9.3 mg/dL (8.5-10.1); Chloride 104 mmol/L (98-107); EST Glomerular Filtration Rate 104 mL/min (>60); Eosinophil# 0.39 X10^3/uL; Eosinophils% 3.6 % (0-5); Est Glom Filt Rate - Afr Amer 126 mL/min (>60); Estimated Creatinine Clearance 51.04 ml/min; Glucose 98 mg/dL (74-106); Hematocrit 29.8 % (37-47); Hemoglobin 9.4 g/dL (12.0-15.0); Lymphocyte % 9.3 % (19-41); Mean Corp Hgb Conc 31.5 g/dL (32-36); Mean Corpuscular Hgb 31.2 pg (27.0-32.0); Mean Platelet Vol. 9.8 fl (6.2-12.0); Monocyte# 1.41 X10^3/uL; Monocyte% 13.1 % (0-10); NRBC Flagged by Analyzer 0 % (0-5); Neutrophil # 7.43 X10^3/uL (2.7-7.7); Neutrophil % 68.8 % (47-70); POSITIVE MORPHOLOGY YES; Platelet Count 439 K/mm3 (150-450); Potassium 4.1 mmol/L (3.5-5.1); RBC Distribution Width CV 20.1 % (11.6-14.6); RBC Distribution Width SD 72.8 fl (35.1-43.9); Red Blood Count 3.01 M/mm3 (4.2-5.4); Sodium Level 139 mmol/L (136-145); White Blood Count 10.8 K/mm3 (4.4-11.0)
[2024-04-25 07:12] LABS: Differential Indicated SCAN CRITERIA MET
[2024-04-25 09:03] LABS: Anisocytosis 1+
[2024-04-25 09:30] VITALS: O2SAT 92
[2024-04-25] MEDS: Amiodarone 200 MG Tablet 100 MG PO (09:40)
[2024-04-25] MEDS: Gabapentin 100 MG Capsule PO (09:40)
[2024-04-25] MEDS: MENTHOL 226.8 GM JAR 1 APPLIC TOPICAL ×2 (09:41→22:03)
[2024-04-25] MEDS: Allopurinol 100 MG Tablet PO (09:41)
[2024-04-25] MEDS: Potassium Chloride Oral Tablet 20 MEQ PO ×2 (09:41→17:10)
[2024-04-25 09:42] VITALS: BP 115/68; PULSE 99
[2024-04-25] MEDS: Lidocaine 5% Patch 2 PATCH TOPICAL (09:42)
[2024-04-25] MEDS: Metoprolol(XL)Succ 25 MG Tablet PO (09:42)
[2024-04-25] MEDS: DULoxetine Hcl 20 MG Capsule PO (09:42)
[2024-04-25] MEDS: Acyclovir 200 MG Capsule 400 MG PO ×2 (09:42→22:03)
[2024-04-25 10:00] VITALS: BMI 24.6
[2024-04-25 15:56] VITALS: BP 126/68; PULSE 86; RESP 14; TEMP 36.7; O2SAT 99
[2024-04-25] MEDS: Warfarin (BKC) 3 MG Tablet PO (17:10)
[2024-04-25] MEDS: oxyCODONE 5 MG Tablet PO (22:01)
[2024-04-25] MEDS: Gabapentin 300 MG Capsule PO (22:01)
[2024-04-25] MEDS: Mirtazapine 15 MG Tablet 7.5 MG PO (22:03)
[2024-04-26] MEDS: MENTHOL 226.8 GM JAR 1 APPLIC TOPICAL ×2 (09:05→20:45)
[2024-04-26 09:06] VITALS: BP 115/62; PULSE 102
[2024-04-26] MEDS: Potassium Chloride Oral Tablet 20 MEQ PO ×2 (09:06→17:16)
[2024-04-26] MEDS: Acyclovir 200 MG Capsule 400 MG PO ×2 (09:06→20:44)
[2024-04-26] MEDS: Amiodarone 200 MG Tablet 100 MG PO (09:06)
[2024-04-26] MEDS: Metoprolol(XL)Succ 25 MG Tablet PO (09:06)
[2024-04-26] MEDS: DULoxetine Hcl 20 MG Capsule PO (09:09)
[2024-04-26] MEDS: Allopurinol 100 MG Tablet PO (09:09)
[2024-04-26] MEDS: Lidocaine 5% Patch 2 PATCH TOPICAL (09:10)
[2024-04-26] MEDS: Gabapentin 100 MG Capsule PO (09:20)
[2024-04-26 09:21] VITALS: BP 115/62; PULSE 102; RESP 17; TEMP 37; O2SAT 96
[2024-04-26 09:43] VITALS: O2SAT 97
[2024-04-26] MEDS: oxyCODONE 5 MG Tablet PO ×2 (09:45→20:48)
[2024-04-26] MEDS: Warfarin (BKC) 3 MG Tablet PO (17:17)
[2024-04-26] MEDS: Gabapentin 300 MG Capsule PO (20:43)
[2024-04-26] MEDS: Mirtazapine 15 MG Tablet 7.5 MG PO (20:44)
[2024-04-27 06:03] LABS: Prothrombin Time (Protime)PT. 23.5 SECONDS (11.7-14.9)
[2024-04-27] MEDS: Amiodarone 200 MG Tablet 100 MG PO (08:27)
[2024-04-27] MEDS: Potassium Chloride Oral Tablet 20 MEQ PO ×2 (08:27→17:13)
[2024-04-27] MEDS: MENTHOL 226.8 GM JAR 1 APPLIC TOPICAL ×2 (08:27→20:09)
[2024-04-27] MEDS: Allopurinol 100 MG Tablet PO (08:27)
[2024-04-27 08:28] VITALS: PULSE 98
[2024-04-27] MEDS: Metoprolol(XL)Succ 25 MG Tablet PO (08:28)
[2024-04-27] MEDS: DULoxetine Hcl 20 MG Capsule PO (08:28)
[2024-04-27] MEDS: Acyclovir 200 MG Capsule 400 MG PO ×2 (08:28→20:08)
[2024-04-27] MEDS: Lidocaine 5% Patch 2 PATCH TOPICAL (08:28)
[2024-04-27] MEDS: Gabapentin 100 MG Capsule PO (08:33)
[2024-04-27] MEDS: oxyCODONE 5 MG Tablet PO ×2 (10:43→20:08)
--- NOTE | 2024-04-27 11:35 | CASEMGMT ---
Social Work IDT collaborated and agreed to set DC date for pt to transition to LTC. TRENT spoke with [facility] on bed availability - agreed upon DC 04/30, for this worker to provide pt with 3-day notice. TRENT phoned to notify of setting DC date for 04/30. Pt will transfer skilled to [facility] under [employer] benefit and has Medicaid coverage for LTC. agreeable and requesting transport for pt. SW to coordinate. TRENT phoned [facility] and scheduled w/c transport with 3L 02 for 1100. PASRR completed in H[facility]. Updated clinicals sent to [facility] for precert. Plan: DC 04/30, [facility], skilled Beverley Pickett EXCELSIOR MACHINE OPERATOR BRINE TANK OPERATOR
[2024-04-27 14:58] VITALS: BP 122/60; PULSE 88; RESP 20; TEMP 36.2; O2SAT 97
[2024-04-27] MEDS: Warfarin (BKC) 3 MG Tablet PO (17:13)
[2024-04-27] MEDS: Gabapentin 300 MG Capsule PO (20:08)
[2024-04-27] MEDS: Mirtazapine 15 MG Tablet 7.5 MG PO (20:09)
--- NOTE | 2024-04-28 07:41 | DS.PCM_ITS ---
Providers Date of Admission: 03/27/24 Primary Care Physician: Dr. 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: Status: Acute Code(s): C34.90 - Malignant neoplasm of unspecified part of unspecified bronchus or lung; C78.1 - Secondary malignant neoplasm of mediastinum (7) Neuropathic pain: Status: Acute Code(s): M79.2 - Neuralgia and neuritis, unspecified (8) Gout: Status: Acute Code(s): M10.9 - Gout, unspecified (9) Hypokalemia: Status: Acute Code(s): E87.6 - Hypokalemia (10) Essential (primary) hypertension: Status: Acute Code(s): I10 - Essential (primary) hypertension (11) Depression: Status: Acute Code(s): F32.A - Depression, unspecified (12) Atrial fibrillation: Status: Acute Code(s): I48.91 - Unspecified atrial fibrillation Plan 73 year old female with below past medical history hospitalized for multiple falls, failure to thrive, complicated by acute anemia requiring transfusion, bilateral pleural effusion, appetite loss, admitted to TCU with debility, here for rehabilitation, strengthening, prior to discharge home with . * Debility - PT/OT. * Pain - Tylenol 1000mg q6 prn pain (1-5), Oxycodone 5mg q4 prn pain (6-10), Lidoderm 2 patches td daily prn, Emla 5gm topical x 1 prn. * Bowel - Senna/colace 2 tablets bid prn. * Adult immunization - Administer pneumonia vaccine, covid vaccine, flu vaccine as appropriate. * DVT prophylaxis - on Warfarin. * Shingles prophylaxis - Acyclovir 400mg bid. * Shortness of breath - Albuterol 2.5mg neb q2 prn. * Gout - Allopurinol 100mg daily. * Atrial fibrillation - Metoprolol succinate 25mg daily, Amiodarne 100mg daily, Warfarin 3mg daily, INR 2.3. * Depression - Duloxetine 20mg daily, stable chronic halfway use, GDR not recommended. * Bilateral pleural effusion - Furosemide 40mg daily. * Neuropathic pain - Gabapentin 100mg, 300mg qhs. * Appetite loss - Mirtazapine 7.5mg qhs, GDR if no improvement in symptoms. * Hypokalemia - KCL 20meq bidcm. * Cough - Robitussin DM 10mL q6 prn. * Skin irritation - Calmoseptine topical tid prn. Medications at Discharge Home Medications gabapentin 300 mg capsule 300 mg PO QHS Pain 09/03/22 allopurinol 100 mg tablet 100 mg PO DAILY Cardiac 02/08/23 gabapentin 100 mg capsule 100 mg PO DAILY Artheritis Pain 06/16/23 duloxetine 20 mg capsule,delayed release 20 mg PO DAILY depression 11/11/23 acyclovir 200 mg capsule 400 mg (2 x 200 mg) PO BID viral #0 caps 03/27/24 sennosides 8.6 mg-docusate sodium 50 mg tablet (Stimulant Laxative Plus) 2 tab PO BID PRN PRN Constipation #0 tabs 03/27/24 levothyroxine 25 mcg tablet 25 mcg PO DAILY 03/29/24 acetaminophen 500 mg tablet 1,000 mg (2 x 500 mg) PO Q6H PRN PRN Pain Score 1-5 #0 tabs 04/28/24 amiodarone 200 mg tablet 100 mg (1/2 x 200 mg) PO BREAKFAST #0 tabs 04/28/24 benzocaine 15 mg-menthol 3.6 mg lozenges (Sore Throat (benzocaine with menthol)) 1 zhao mucous membrane Q2H PRN PRN Sore Throat #0 ea 04/28/24 lidocaine 5 % topical patch 2 patch topical DAILY #0 ea 04/28/24 lidocaine-prilocaine 2.5 %-2.5 % topical cream 5 g topical X1 PRN PORT ACCESS #0 grams 04/28/24 menthol 2 % topical gel (Blue Gel) 1 applic topical BID #0 grams 04/28/24 metoprolol succinate 25 mg tablet,extended release 24 hr 25 mg PO DAILY #0 tabs 04/28/24 mirtazapine 15 mg tablet 7.5 mg (1/2 x 15 mg) PO QHS #0 tabs 04/28/24 oxycodone 5 mg tablet 5 mg PO Q4H PRN PRN Pain Score 6-10 Or Pre Pt/Ot 3 days #18 tabs 04/28/24 potassium chloride 20 mEq tablet,extended release(part/cryst) 20 meq PO BIDCM #0 tabs 04/28/24 warfarin 3 mg tablet (Jantoven) 3 mg PO DAILY@1700 #0 tabs 04/28/24 Hospital Course Operations None Procedures Thoracentesis (Unable to remove fluid.) Summary of Care Provided Minutes Spent on Discharge: 35 Hospital Course: 73 year old female with below past medical history hospitalized for multiple falls, failure to thrive, complicated by acute anemia requiring transfusion, bilateral pleural effusion, appetite loss, admitted to TCU with debility, here for rehabilitation, strengthening, prior to discharge home with . 03/30/2024 FEES: Recommendations Diet: Soft and Bite Sized Textures and Mildly Thick Liquids Comments: Very small bites - one piece at a time with soft textures i.e. peaches Silvestre free water protocol (teaspoon sized sips from an open cup or off a spoon) o.k. after through oral care and 30 mins after post non-water P.O. intake Compensatory Strategies: Small Bites, Small Sips, Slow Rate, Sitting upright and Assist with verbal cues to use recommended strategies Supervision: 1:1 Direct Supervision Recommend Repeat Instrumental Swallow Assessment: TBD Need for Skilled Speech Therapy Services: Yes Education Completed: 1. Described result of evaluation. and 7. Pt requires further education on strategies & risks. 04/27/2024 MRI brain: ADDENDUM by Dr. Harjinder Lin MD on 04/27/24 at 1048 Prior images were submitted for comparison (03/22/2024, 06/16/2023, and 09/17/2022 MRIs). 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 A metastatic lesion is possible but less likely given stability and prior findings. Continued follow-up is recommended. Discharge to the [facility] 04/30/2024, skilled. Physical Exam Const alert General Appearance: cooperative HEENT normocephalic Eyes PERRL and EOMs intact bilaterally Neck supple, no JVD and no carotid bruits Resp normal respiratory effort, normal air movement and clear to auscultation bilaterally Cardio regular rate and regular rhythm GI normal to inspection, nondistended, normoactive bowel sounds, non-tender and non-distended Extremity normal capillary refill General Extremity: Negative for edema Skin no rashes or lesions noted General Skin Exam: no breakdown Psych affect normal Appearance: appropriate Weight / BMI Weight Weight: 63.14 kg Body Mass Index (BMI) 24.6 ABG / Lab / Microbiology Data 04/25/24 05:13 04/25/24 05:13 Microbiology: Microbiology 04/26/24 06:33 Nasal Secretion SARS-CoV-2 Antigen (Rapid) - Final D/C Instructions Discharge Diet: No restrictions Discharge Activity: Return to Normal Activity, May Shower and Use Walker Weight Bearing Status: Weight bearing as tolerated Call your doctor if you observe: Fever of 101 or Higher, Inability to urinate, Inability to have a bowel movement, Shortness of breath, Dizziness, Fainting spells, Swelling in the ankles, Chest pain and Uncontrolled pain DC O2, CPAP, BIPAP Needs PSN CPAP & BiPAP: BiPAP & CPAP Settings per PSN Fraction of Inspired Oxygen ( 96 04/07/24 09:13 FIO2) Home O2 Discharge instructions: No Additional Instructions: Discharge to the [facility] 04/30/2024, skilled. Meaningful Use Info Meaningful Use Meaningful Use Diagnoses (Choose all that apply): None applicable Ischemic Stroke Statin Dosing Therapy Reference: STATIN DOSE THERAPY REFERENCE: * Patients > 75 years receive moderate or high dose statin therapy. * Patients 75 years or YOUNGER should receive HIGH intensity statin dose unless contraindicated. You will be required to document reason for non-treatment if statin daily dose does not meet guidelines. HIGH DOSE STATIN THERAPY DAILY Atorvastatin > than or = to 40 mg Rosuvastatin > than or = to 20 mg Amlodipine + Atorvastatin > than or = to 2.5/40 mg Ezetimibe + Simvastatin 10/80 mg Simvastatin 80mg Discharge Plan Admission Admit Date/Time: 03/27/24 16:28 Primary Reason for Your Visit: Debility. Attending Provider: Walter Emanuel Chi Primary Care Provider: Walter Emanuel Chi Instructions Additional Instructions / Restrictions: [facility] to [facility] 04/30/2024, skilled. Discharge Orders/Prescriptions Prescriptions: New acetaminophen 500 mg Tablet 1,000 mg PO Q6H PRN PRN (Reason: Pain Score 1-5) Qty: 0 0RF amiodarone 200 mg Tablet 100 mg PO BREAKFAST Qty: 0 0RF lidocaine-prilocaine 2.5-2.5 % Cream 5 g topical X1 PRN (Reason: PORT ACCESS) Qty: 0 0RF Protocol: *Topical Application Instructions APPLICATION INSTRUCTIONS: one time lidocaine 5 % Adhesive Patch,Medicated 2 patch topical DAILY Qty: 0 0RF Protocol: *Topical Application Instructions APPLICATION INSTRUCTIONS: topical daily menthol [Blue Gel] 2 % Gel 1 applic topical BID Qty: 0 0RF Sore Throat (benzocaine-menth) 15-3.6 mg Lozenge 1 zhao mucous membrane Q2H PRN PRN (Reason: Sore Throat) Qty: 0 0RF warfarin [Jantoven] 3 mg Tablet 3 mg PO DAILY@1700 Qty: 0 0RF potassium chloride 20 mEq Tablet,Er Particles/Crystals 20 meq PO BIDCM Qty: 0 0RF mirtazapine 15 mg Tablet 7.5 mg PO QHS Qty: 0 0RF metoprolol succinate 25 mg Tablet Extended Release 24 Hr 25 mg PO DAILY Qty: 0 0RF oxycodone 5 mg Tablet 5 mg PO Q4H PRN PRN (Reason: Pain Score 6-10 Or Pre Pt/Ot) 3 Days Qty: 18 0RF Continued gabapentin 300 mg capsule 300 mg PO QHS allopurinol 100 mg tablet 100 mg PO DAILY duloxetine 20 mg capsule,delayed release(DR/EC) 20 mg PO DAILY gabapentin 100 mg capsule 100 mg PO DAILY levothyroxine 25 mcg tablet 25 mcg PO DAILY acyclovir 200 mg Capsule 400 mg PO BID Qty: 0 0RF Discontinued oxycodone 5 mg tablet 5 mg PO Q6H PRN (Reason: pain) acetaminophen 325 mg Tablet 650 mg PO Q4H PRN PRN (Reason: Fever, pain 1-10/10) Qty: 0 0RF albuterol sulfate 2.5 mg /3 mL (0.083 %) Solution For Nebulization 2.5 mg inhalation Q2H PRN PRN (Reason: Dyspnea, wheezing) Qty: 0 0RF ascorbic acid (vitamin C) 500 mg Tablet 500 mg PO DAILY Qty: 0 0RF furosemide 40 mg Tablet 40 mg PO DAILY Qty: 0 0RF Patient Comments: fluid retention mirtazapine 30 mg Tablet 30 mg PO QHS Qty: 0 0RF lidocaine 5 % Adhesive Patch,Medicated 1 patch topical DAILY PRN (Reason: pain) Qty: 0 0RF oxycodone 5 mg Tablet 5 mg PO Q6H PRN (Reason: pain) 2 Days Qty: 8 0RF potassium chloride 20 mEq Tablet,Er Particles/Crystals 20 meq PO BIDCM Qty: 0 0RF warfarin [Jantoven] 4 mg Tablet 4 mg PO DAILY@1700 Qty: 0 0RF metoprolol succinate 50 mg tablet extended release 24 hr 50 mg PO DAILY Qty: 90 3RF amiodarone 200 mg tablet 200 mg PO DAILY Qty: 90 3RF lidocaine-prilocaine 2.5-2.5 % cream 1 applic topical ONCE PRN (Reason: port access) 30 Days Qty: 30 2RF No Action sennosides-docusate sodium [Stimulant Laxative Plus] 8.6-50 mg Tablet 2 tab PO BID PRN PRN (Reason: Constipation) Qty: 0 0RF Referrals / Follow Up: Walter Emanuel Chi, MD [Primary Care Provider] - Disposition Disposition (needs filled in before D/C Order can be placed): [facility]
--- NOTE | 2024-04-28 07:57 | TREXTCAR_ITS ---
Diet Diet Order/Speech Therapy: 03/27/24 17:12 Diet: Regular - General Food consistency:: Soft & Bite Sized Liquid Consistency:: [place]/Mildly Thick Type of Dietary Supplement:: Cricket w/ B & D Diet Comments: Wu MAGIC CUP L&D,SM PORTIONS, Cricket B&D, meds in , FFWP, no straws Routine Orders/Code Status Code Status: DNRCC DC O2, CPAP, BIPAP needs Home O2 Discharge instructions: No Wound(s) Right lowe abrasions x3: Wound Type: scabbed over Dressing Change: mepilex Right knee scab: Wound Type: scab Left proximal arm skin tear: Wound Type: Scabbed over Dressing Change: Bandaid Left elbow skin tear: Wound Type: Scabbed over Dressing Change: Bandaid Left buttock pressure injury: Wound Type: Pressure Injury Dressing Change: Triad cream Shearing- right anterior lower leg: Wound Type: shearing Dressing Change: mepilex - 04/25/24 Therapies Weight Bearing: Weight bearing as tolerated Extremity Affected:: Bilateral Lower Physical Therapy: Eval and Treat Occupational Therapy: Eval and Treat Speech Therapy: Eval and Treat Problem/Diagnosis (1) Debility: Status: Inactive Code(s): R53.81 - Other malaise (2) Frequent falls: Status: Inactive Code(s): R29.6 - Repeated falls (3) Failure to thrive: Status: Acute (4) Acute anemia: Status: Acute Code(s): D64.9 - Anemia, unspecified (5) Bilateral pleural effusion: Status: Acute Code(s): J90 - Pleural effusion, not elsewhere classified (6) 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: Status: Acute Code(s): C34.90 - Malignant neoplasm of unspecified part of unspecified bronchus or lung; C78.1 - Secondary malignant neoplasm of mediastinum (7) Neuropathic pain: Status: Acute Code(s): M79.2 - Neuralgia and neuritis, unspecified (8) Gout: Status: Acute Code(s): M10.9 - Gout, unspecified (9) Hypokalemia: Status: Acute Code(s): E87.6 - Hypokalemia (10) Essential (primary) hypertension: Status: Acute Code(s): I10 - Essential (primary) hypertension (11) Depression: Status: Acute Code(s): F32.A - Depression, unspecified (12) Atrial fibrillation: Status: Acute Code(s): I48.91 - Unspecified atrial fibrillation Plan 73 year old female with below past medical history hospitalized for multiple falls, failure to thrive, complicated by acute anemia requiring transfusion, bilateral pleural effusion, appetite loss, admitted to TCU with debility, here for rehabilitation, strengthening, prior to discharge home with . * Debility - PT/OT. * Pain - Tylenol 1000mg q6 prn pain (1-5), Oxycodone 5mg q4 prn pain (6-10), Lidoderm 2 patches td daily prn, Emla 5gm topical x 1 prn. * Bowel - Senna/colace 2 tablets bid prn. * Adult immunization - Administer pneumonia vaccine, covid vaccine, flu vaccine as appropriate. * DVT prophylaxis - on Warfarin. * Shingles prophylaxis - Acyclovir 400mg bid. * Shortness of breath - Albuterol 2.5mg neb q2 prn. * Gout - Allopurinol 100mg daily. * Atrial fibrillation - Metoprolol succinate 25mg daily, Amiodarne 100mg daily, Warfarin 3mg daily, INR 2.3. * Depression - Duloxetine 20mg daily, stable chronic snf use, GDR not recommended. * Bilateral pleural effusion - Furosemide 40mg daily. * Neuropathic pain - Gabapentin 100mg, 300mg qhs. * Appetite loss - Mirtazapine 7.5mg qhs, GDR if no improvement in symptoms. * Hypokalemia - KCL 20meq bidcm. * Cough - Robitussin DM 10mL q6 prn. * Skin irritation - Calmoseptine topical tid prn. Allergies/Procedures Done in Hospital Allergies No Known Allergies Allergy (Verified 04/24/24 13:04) Procedures: Thoracentesis Type of Care/Length of Stay Estimated LOS: More Than 30 Days Type of Care Needed: Skilled Rehab Potential: Fair Prognosis: Fair Additional Orders/Day of Discharge Day of Discharge: 04/30/24 Dietary and Speech Recommendations Dietitian Recommendations/Changes: Continue Regular diet to optimize oral intakes - consistency per PAPER STRIPPER. Continue wu magic cup w/ lunch and dinner for increased nutrition if consumed. Continue Cricket - consistency per PAPER STRIPPER -with breakfast and dinner to promote wound healing Discharge Plan Admission Admit Date/Time: 03/27/24 16:28 Primary Reason for Your Visit: Debility. Attending Provider: Walter Emanuel Chi Primary Care Provider: Walter Emanuel Chi Instructions Additional Instructions / Restrictions: [facility] to [facility] 04/30/2024, skilled. Discharge Orders/Prescriptions Prescriptions: New acetaminophen 500 mg Tablet 1,000 mg PO Q6H PRN PRN (Reason: Pain Score 1-5) Qty: 0 0RF amiodarone 200 mg Tablet 100 mg PO BREAKFAST Qty: 0 0RF lidocaine-prilocaine 2.5-2.5 % Cream 5 g topical X1 PRN (Reason: PORT ACCESS) Qty: 0 0RF Protocol: *Topical Application Instructions APPLICATION INSTRUCTIONS: one time lidocaine 5 % Adhesive Patch,Medicated 2 patch topical DAILY Qty: 0 0RF Protocol: *Topical Application Instructions APPLICATION INSTRUCTIONS: topical daily menthol [Blue Gel] 2 % Gel 1 applic topical BID Qty: 0 0RF Sore Throat (benzocaine-menth) 15-3.6 mg Lozenge 1 zhao mucous membrane Q2H PRN PRN (Reason: Sore Throat) Qty: 0 0RF warfarin [Jantoven] 3 mg Tablet 3 mg PO DAILY@1700 Qty: 0 0RF potassium chloride 20 mEq Tablet,Er Particles/Crystals 20 meq PO BIDCM Qty: 0 0RF mirtazapine 15 mg Tablet 7.5 mg PO QHS Qty: 0 0RF metoprolol succinate 25 mg Tablet Extended Release 24 Hr 25 mg PO DAILY Qty: 0 0RF oxycodone 5 mg Tablet 5 mg PO Q4H PRN PRN (Reason: Pain Score 6-10 Or Pre Pt/Ot) 3 Days Qty: 18 0RF Continued gabapentin 300 mg capsule 300 mg PO QHS allopurinol 100 mg tablet 100 mg PO DAILY duloxetine 20 mg capsule,delayed release(DR/EC) 20 mg PO DAILY gabapentin 100 mg capsule 100 mg PO DAILY levothyroxine 25 mcg tablet 25 mcg PO DAILY acyclovir 200 mg Capsule 400 mg PO BID Qty: 0 0RF Discontinued oxycodone 5 mg tablet 5 mg PO Q6H PRN (Reason: pain) acetaminophen 325 mg Tablet 650 mg PO Q4H PRN PRN (Reason: Fever, pain 1-10/10) Qty: 0 0RF albuterol sulfate 2.5 mg /3 mL (0.083 %) Solution For Nebulization 2.5 mg inhalation Q2H PRN PRN (Reason: Dyspnea, wheezing) Qty: 0 0RF ascorbic acid (vitamin C) 500 mg Tablet 500 mg PO DAILY Qty: 0 0RF furosemide 40 mg Tablet 40 mg PO DAILY Qty: 0 0RF Patient Comments: fluid retention mirtazapine 30 mg Tablet 30 mg PO QHS Qty: 0 0RF lidocaine 5 % Adhesive Patch,Medicated 1 patch topical DAILY PRN (Reason: pain) Qty: 0 0RF oxycodone 5 mg Tablet 5 mg PO Q6H PRN (Reason: pain) 2 Days Qty: 8 0RF potassium chloride 20 mEq Tablet,Er Particles/Crystals 20 meq PO BIDCM Qty: 0 0RF warfarin [Jantoven] 4 mg Tablet 4 mg PO DAILY@1700 Qty: 0 0RF metoprolol succinate 50 mg tablet extended release 24 hr 50 mg PO DAILY Qty: 90 3RF amiodarone 200 mg tablet 200 mg PO DAILY Qty: 90 3RF lidocaine-prilocaine 2.5-2.5 % cream 1 applic topical ONCE PRN (Reason: port access) 30 Days Qty: 30 2RF No Action sennosides-docusate sodium [Stimulant Laxative Plus] 8.6-50 mg Tablet 2 tab PO BID PRN PRN (Reason: Constipation) Qty: 0 0RF Referrals / Follow Up: Walter Emanuel Chi, MD [Primary Care Provider] - Disposition Disposition (needs filled in before D/C Order can be placed): Nursing Home Facility
[2024-04-28 08:58] VITALS: O2SAT 94
[2024-04-28 09:46] VITALS: BP 119/67; PULSE 91; RESP 18; TEMP 36.7
[2024-04-28] MEDS: MENTHOL 226.8 GM JAR 1 APPLIC TOPICAL (09:56)
[2024-04-28] MEDS: Amiodarone 200 MG Tablet 100 MG PO (09:56)
[2024-04-28] MEDS: Allopurinol 100 MG Tablet PO (09:57)
[2024-04-28] MEDS: Potassium Chloride Oral Tablet 20 MEQ PO ×2 (09:57→16:50)
[2024-04-28] MEDS: DULoxetine Hcl 20 MG Capsule PO (09:57)
[2024-04-28] MEDS: Lidocaine 5% Patch 2 PATCH TOPICAL (09:57)
[2024-04-28 09:58] VITALS: PULSE 91
[2024-04-28] MEDS: Gabapentin 100 MG Capsule PO (09:58)
[2024-04-28] MEDS: Acyclovir 200 MG Capsule 400 MG PO ×2 (09:58→22:34)
[2024-04-28] MEDS: Metoprolol(XL)Succ 25 MG Tablet PO (09:58)
[2024-04-28] MEDS: Acetaminophen 500 MG Tablet 1000 MG PO (14:11)
--- NOTE | 2024-04-28 14:20 | CASEMGMT ---
BIMS () and PHQ2 () interview completed on this date for MDS assessment. GIANCARLO James
[2024-04-28] MEDS: Warfarin (BKC) 3 MG Tablet PO (16:49)
[2024-04-28 22:00] VITALS: PULSE 86; RESP 16
[2024-04-28] MEDS: Gabapentin 300 MG Capsule PO (22:34)
[2024-04-28] MEDS: Mirtazapine 15 MG Tablet 7.5 MG PO (22:34)
[2024-04-29 09:54] VITALS: BP 126/63; PULSE 88; RESP 18; TEMP 36.2; O2SAT 97
[2024-04-29] MEDS: Amiodarone 200 MG Tablet 100 MG PO (10:03)
[2024-04-29 10:04] VITALS: PULSE 88
[2024-04-29] MEDS: Metoprolol(XL)Succ 25 MG Tablet PO (10:04)
[2024-04-29] MEDS: Potassium Chloride Oral Tablet 20 MEQ PO ×2 (10:04→17:00)
[2024-04-29] MEDS: MENTHOL 226.8 GM JAR 1 APPLIC TOPICAL ×2 (10:04→22:02)
[2024-04-29] MEDS: Allopurinol 100 MG Tablet PO (10:04)
[2024-04-29] MEDS: Acyclovir 200 MG Capsule 400 MG PO ×2 (10:04→22:02)
[2024-04-29] MEDS: Lidocaine 5% Patch 2 PATCH TOPICAL (10:04)
[2024-04-29] MEDS: Gabapentin 100 MG Capsule PO (10:04)
[2024-04-29] MEDS: DULoxetine Hcl 20 MG Capsule PO (10:04)
[2024-04-29] MEDS: oxyCODONE 5 MG Tablet PO ×2 (10:05→17:00)
[2024-04-29] MEDS: Warfarin (BKC) 3 MG Tablet PO (17:00)
[2024-04-29] MEDS: Gabapentin 300 MG Capsule PO (22:01)
[2024-04-29] MEDS: Mirtazapine 15 MG Tablet 7.5 MG PO (22:02)
[2024-04-30 09:59] VITALS: BP 126/68; PULSE 88; TEMP 36.8; O2SAT 98
[2024-04-30] MEDS: oxyCODONE 5 MG Tablet PO (10:03)
[2024-04-30] MEDS: Amiodarone 200 MG Tablet 100 MG PO (10:04)
[2024-04-30 10:05] VITALS: PULSE 88
[2024-04-30] MEDS: MENTHOL 226.8 GM JAR 1 APPLIC TOPICAL (10:05)
[2024-04-30] MEDS: Metoprolol(XL)Succ 25 MG Tablet PO (10:05)
[2024-04-30] MEDS: Lidocaine 5% Patch 2 PATCH TOPICAL (10:05)
[2024-04-30] MEDS: Gabapentin 100 MG Capsule PO (10:05)
[2024-04-30] MEDS: Potassium Chloride Oral Tablet 20 MEQ PO (10:05)
[2024-04-30] MEDS: Allopurinol 100 MG Tablet PO (10:05)
[2024-04-30] MEDS: DULoxetine Hcl 20 MG Capsule PO (10:05)
[2024-04-30] MEDS: Acyclovir 200 MG Capsule 400 MG PO (10:06)
--- NOTE | 2024-04-30 11:42 | NURSING ---
called report to Bella at [address]
== END 2024-04-30 11:20 | disposition skilled nursing facility (03) | DRG 187 ==
PROVIDERS: Admitting Provider Family Medicine Geriatric Medicine; PCP Family Medicine Geriatric Medicine; Visit Provider Family Medicine Geriatric Medicine
DX: J90 Pleural effusion, not elsewhere classified (principal); C78.1 Secondary malignant neoplasm of mediastinum; C77.1 Secondary and unspecified malignant neoplasm of intrathoracic lymph nodes; C34.90 Malignant neoplasm of unspecified part of unspecified bronchus or lung; R62.7 Adult failure to thrive; D64.9 Anemia, unspecified; B37.9 Candidiasis, unspecified; I10 Essential (primary) hypertension; F32.A Depression, unspecified; I48.91 Unspecified atrial fibrillation; E78.5 Hyperlipidemia, unspecified; M10.9 Gout, unspecified; G62.9 Polyneuropathy, unspecified; E87.6 Hypokalemia; Z87.891 Personal history of nicotine dependence; Z79.01 Long term (current) use of anticoagulants; Z79.899 Other long term (current) drug therapy; R29.6 Repeated falls
CPT/HCPCS: 36415; 71046; 80048; 85014; 85018; 85025; 85610; 87811; 92507; 92523; 92526; 92610; 92612; 97110; 97116; 97162; 97166; 97530; 97533; 97535; 97802; A4216

== ENCOUNTER → 2024-04-10 | Outpatient (CLI) | payer MEDICARE, MEDICAID, SELFPAY ==
--- NOTE | 2024-04-10 13:37 | US_ITS ---
STUDY: SUPERFICIAL ULTRASOUND - PLEURAL EFFUSION. REASON FOR EXAM: Female, 73 years old. Pleural effusion, not elsewhere classified TECHNIQUE: A superficial ultrasound was performed with real-time and static rider-scale imaging. COMPARISON: None. FINDINGS: The right and left pleural cavities were examined with ultrasound. Not enough fluid is present for safe thoracentesis. US/Chest IMPRESSION: Not enough fluid for safe thoracentesis. Electronically Signed: Joseph Ott MD at 14:42 EST ,
== END | disposition home or self-care (01) ==
PROVIDERS: PCP Family Medicine Geriatric Medicine; Referring Provider Family Medicine Geriatric Medicine; Visit Provider Family Medicine Geriatric Medicine
DX: J90 Pleural effusion, not elsewhere classified (principal)
CPT/HCPCS: 76604

== ENCOUNTER → 2024-04-21 | Outpatient (CLI) | payer MEDICARE, SELFPAY ==
--- NOTE | 2024-04-21 07:08 | MRI_ITS ---
PROCEDURE: BRAIN W/WO CONTRAST REASON FOR EXAM: Headache; rule out brain Mets. TECHNIQUE: Multiplanar, multisequence MRI of the brain with intravenous gadolinium-based contrast. COMPARISON: None. FINDINGS: Moderate global parenchymal atrophy. Periventricular white matter T2/FLAIR hyperintensities likely representing moderate chronic microvascular ischemia. In the region of the head of the caudate there is a 13 x 8 mm hyperenhancing lesion. Absent chenega ocular lenses. The paranasal sinuses are clear. MRI/Brain W/WO Contrast IMPRESSION: Left head of caudate hyperenhancing lesions suspicious for a mass or metastatic implant. Reading Location: [id number]
== END | disposition home or self-care (01) ==
LOC: MRI 07:05
PROVIDERS: PCP Family Medicine Geriatric Medicine; Visit Provider Nurse Practitioner Family
DX: R51.9 Headache, unspecified (principal); C77.1 Secondary and unspecified malignant neoplasm of intrathoracic lymph nodes; C34.92 Malignant neoplasm of unspecified part of left bronchus or lung; R29.6 Repeated falls
CPT/HCPCS: 70553; A9575

== ENCOUNTER → 2024-05-08 | Outpatient (CLI) | payer MEDICARE, MEDICAID, SELFPAY ==
--- NOTE | 2024-05-08 08:13 | NM_ITS ---
PROCEDURE: BONE SCAN WHOLE BODY REASON FOR EXAM: History of small-cell lung cancer. Restaging. TECHNIQUE: Whole-body bone scan with anterior and posterior views. Imaging at 2 hours RADIOPHARMACEUTICAL: 27 mCi Technetium-99m MDP IV COMPARISON: No existing relevant imaging study available or patient did not have a previous relevant imaging study. FINDINGS: Bones: Increased radiopharmaceutical uptake is seen in the T4 or T5 vertebrae. Increased uptake is also seen in the proximal metaphysis of the left humerus as well as the anterior aspects of the right 10th 11th and 12th ribs. Metastatic deposit should be ruled out. Increased uptake in the medial aspects of both knee joints suggestive of degenerative change. Kidneys: Normal activity is identified at both kidneys. NM/Bone Scan Whole Body IMPRESSION: Findings suggestive of metastatic deposits to the proximal metaphysis of the le ft humerus as well as a T4 or T5 vertebrae. Increased uptake also seen along the anterior aspect of the right 10th 11th and 12th ribs most likely due to trauma. Increased uptake along the medial aspects of both knee joints suggestive of deg enerative change. Reading Location: [id number]
[2024-05-08] MEDS: 0.9% Saline Lock 10 ML Syringe IV (08:34)
== END | disposition home or self-care (01) ==
LOC: NM 08:12
PROVIDERS: PCP Family Medicine Geriatric Medicine; Referring Provider Nurse Practitioner Family; Visit Provider Nurse Practitioner Family
DX: C34.90 Malignant neoplasm of unspecified part of unspecified bronchus or lung (principal)
CPT/HCPCS: 78306; A9503; A4216

== ENCOUNTER → 2024-05-12 | Outpatient (CLI) | payer MEDICARE, MEDICAID, SELFPAY ==
--- NOTE | 2024-05-12 06:39 | CT_ITS ---
PROCEDURE: CT CHEST AND ABD W/ CONTRAST REASON FOR EXAM: Restaging of squamous cell carcinoma. TECHNIQUE: Chest and abdomen CT with intravenous contrast. No oral contrast. CONTRAST: 75 cc of Isovue 370. COMPARISON: Comparison is made with prior study dated March 23, 2024. FINDINGS: CT CHEST: Hardware: A left-sided port a catheter is seen with the tip in the superior vena cava. Lymph nodes: No mediastinal, hilar, or axillary lymphadenopathy. Heart and Vasculature: Normal heart size. No pericardial effusion. Atherosclerotic calcifications of the thoracic aorta. Pulmonary arteries are unremarkable. Lungs and Airways: Stable volume loss in the left hemithorax with shift of the heart and mediastinal structures to the left side of the thorax. Stable moderate-sized left pleural effusion with loculation and volume loss in the left lung. Stable 8 mm spiculated nodule in the anterior aspect of the right lung apex. Hyperinflation of the right lung with scarring at the lung bases. Stable complete collapse of an upper dorsal vertebrae. CT ABDOMEN: There is a new 7.4 mm hypodense nodule in the peripheral lateral aspect of the right lobe of the liver superiorly. A similar-appearing hypodense nodule measuring 1 cm seen in the caudate lobe. There is also evidence of a 8.2 mm nodule in the anterior central portion of the right lobe of the liver as well as scattered subcentimeter hypodense nodules in the inferior aspect of the right lobe of the liver. Metastatic deposit should be ruled out. Gallbladder: Unremarkable. Spleen: Unremarkable. Pancreas: Unremarkable. Adrenals: Unremarkable. Kidneys: Stable small left renal cyst. Bowel: Visualized loops of bowel in the upper abdomen are unremarkable. Lymph nodes: No suspicious lymph node enlargement at the upper abdomen. Vasculature: Status post endoluminal stent grafting of an infrarenal abdominal aortic aneurysm. This is unchanged. Peritoneum / Retroperitoneum: No ascites or free air at the upper abdomen. Bones: Degenerative changes of the spine. CT/CT Chest AND Abd W/ Contrast IMPRESSION: Stable appearance of the chest. Since prior study, there is evidence of multiple hypodense nodules throughout t he right lobe of the liver as described suggestive of possible metastasis. Evidence of prior endoluminal stent grafting of an infrarenal abdominal aortic aneurysm. One or more dose reduction techniques were used (e.g., Automated exposure contr ol, adjustment of the mA and/or kV according to patient size, use of iterative reconstruction technique). Reading Location: [facility]
[2024-05-12] MEDS: 0.9 % NaCl (Sterile) Posiflush 10 mL IV (07:10)
[2024-05-12] MEDS: 0.9% Saline Lock 10 ML Syringe IV (07:25)
== END | disposition home or self-care (01) ==
LOC: CT 06:35
PROVIDERS: PCP Family Medicine Geriatric Medicine; Referring Provider Nurse Practitioner Family; Visit Provider Nurse Practitioner Family
DX: C34.92 Malignant neoplasm of unspecified part of left bronchus or lung (principal); C78.1 Secondary malignant neoplasm of mediastinum
CPT/HCPCS: 71260; 74160; Q9967

== ENCOUNTER 2024-05-14 06:20 | Inpatient (IN) | payer MEDICARE, MEDICAID, SELFPAY ==
[2024-05-14] VITALS (12 sets, daily range): BP systolic 95–127; BP diastolic 45–65; PULSE 95–781; RESP 12–32; TEMP 36.6–37.9; O2SAT 91–100; BMI 25.9; BMI 21.6
--- NOTE | 2024-05-14 06:31 | EKG12_ITS ---
Test Reason : SOB Blood Pressure : */* mmHG Vent. Rate : 116 BPM Atrial Rate : 116 BPM P-R Int : 150 ms QRS Dur : 146 ms QT Int : 408 ms P-R-T Axes : -2 -45 86 degrees QTcB Int : 567 ms Sinus tachycardia with Fusion complexes Left axis deviation Left bundle branch block Abnormal ECG Confirmed by Erwin Lewis ([id number]), mapping editor SHIRA SON ([id number]) on 05/16/2024 10:41:56 AM Referred By: MICHELE Confirmed By: Erwin Lewis
--- NOTE | 2024-05-14 06:50 | EKG12_ITS ---
Test Reason : TACHY Blood Pressure : */* mmHG Vent. Rate : 132 BPM Atrial Rate : * BPM P-R Int : * ms QRS Dur : 138 ms QT Int : 324 ms P-R-T Axes : * -40 128 degrees QTcB Int : 480 ms Atrial fibrillation with rapid ventricular response Left axis deviation Left bundle branch block Abnormal ECG When compared with ECG of 14-May-2024 06:31, MANUAL COMPARISON REQUIRED DATA IS UNCONFIRMED Confirmed by Erwin Lewis ([id number]), writer editor WILBER RIVERA [id number]) on 05/15/2024 9:45:08 AM Referred By: Confirmed By: Erwin Lewis
--- NOTE | 2024-05-14 06:51 | EDS_ITS ---
HPI History of Present Illness Chief Complaint: Shortness of Breath Informant: patient, spouse/S.O. and EMS Narrative Narrative: 73-year-old female in the [facility] for rehabilitation, she has not on small cell lung cancer on the left according to the , she currently getting chemotherapy, she has had a cough, some low-grade fevers, dyspnea all started yesterday progressively worse this morning. Patient limited ability to provide information since she is on BiPAP, respiratory put her on it right before my evaluation, she states that is helping. She denies nausea or vomiting or abdominal pain or chest pain at this time. Per EMS she was hypoxic in the low-mid 80s while on her 3 L nasal cannula, so they increased her oxygen and brought her here. [facility] Medical History Squamous cell carcinoma lung Debility Adult failure to thrive Supratherapeutic INR Anemia requiring transfusions Frequent falls Dehydration Falls Headache Left flank pain Clayton blood in stool Vascular device, implant, or graft complication Lung cancer History of atrial fibrillation Post-menopausal Ambulates with cane Low iron Injury of head and neck Closed fracture of left proximal humerus Carotid stenosis CVA (cerebral vascular accident) Weakness UTI (urinary tract infection) Hypoxia Anemia Prerenal azotemia Oral candidiasis Encounter for education 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 receptor positive status (ER+) Ductal carcinoma in situ (DCIS) of left breast Malignant neoplasm of unspecified site of right female breast Nontoxic single thyroid nodule Vitamin D deficiency Wears dentures Cancer Arthritis Former smoker Hypertension History of echocardiogram History of stress test Cardiology follow-up encounter Essential (primary) hypertension Hyperlipidemia Breast cancer Gout Obesity Abdominal aortic aneurysm (AAA) History of breast cancer Home Medications ?Medication ?Instructions ?Recorded ?Last Taken ?Type gabapentin 300 mg capsule 300 mg PO QHS Pain 09/03/22 03/20/24 History allopurinol 100 mg tablet 100 mg PO DAILY Cardiac 01/1403/21/24 History gabapentin 100 mg capsule 100 mg PO DAILY Artheritis P ain 06/16/23 03/21/24 History duloxetine 20 mg capsule,delayed 20 mg PO DAILY depres ernesto 11/11/23 03/21/24 History release acyclovir 200 mg capsule 400 mg (2 x 200 mg) PO BID v iral 03/27/24 Unknown Rx #0 caps sennosides 8.6 mg-docusate sodium 2 tab PO BID PRN PRN Constipation 03/27/24 Unknown Rx 50 mg tablet (Stimulant Laxative #0 tabs Plus) levothyroxine 25 mcg tablet 25 mcg PO DAILY 03/29/24 U nknown History acetaminophen 500 mg tablet 1,000 mg (2 x 500 mg) PO Q 6H PRN 04/28/24 Unknown Rx PRN Pain Score 1-5 #0 tabs amiodarone 200 mg tablet 100 mg (1/2 x 200 mg) PO ANGELA AKFAST 04/28/24 Unknown Rx #0 tabs benzocaine 15 mg-menthol 3.6 mg 1 zhao mucous membrane Q2H PRN PRN 04/28/24 Unknown Rx lozenges (Sore Throat (benzocaine Sore Throat #0 ea with menthol)) lidocaine 5 % topical patch 2 patch topical DAILY #0 e a 04/28/24 Unknown Rx lidocaine-prilocaine 2.5 %-2.5 % 5 g topical X1 PRN PO RT ACCESS #0 04/28/24 Unknown Rx topical cream grams menthol 2 % topical gel (Blue Gel) 1 applic topical BI D #0 grams 04/28/24 Unknown Rx metoprolol succinate 25 mg 25 mg PO DAILY #0 tabs 04/15 07/07 Unknown Rx tablet,extended release 24 hr mirtazapine 15 mg tablet 7.5 mg (1/2 x 15 mg) PO QHS #0 tabs 04/28/24 Unknown Rx oxycodone 5 mg tablet 5 mg PO Q4H PRN PRN Pain Sco re 04/28/24 Unknown Rx 6-10 Or Pre Pt/Ot 3 days #18 tabs potassium chloride 20 mEq 20 meq PO BIDCM #0 tabs 04/15 07/07 Unknown Rx tablet,extended release(part/cryst) warfarin 3 mg tablet (Jantoven) 3 mg PO DAILY@1700 #0 tabs 04/28/24 Unknown Rx Allergy/AdvReac Type Severity Reaction Status Date / Time No Known Allergies Allergy Verified 04/24/24 13:04 Family History Father , 58 Lung cancer Mother Breast cancer Sister Breast cancer Surgical History Hx of surgical procedure History of oral surgery Amputated toe of left foot History of excision of lesion H/O: hammer toe correction S/P breast lumpectomy History of colonoscopy (~2018) S/P AAA (abdominal aortic aneurysm) repair History of hysterectomy H/O mastectomy Social History household members: spouse Smoking Status: Former smoker quit date: 03/15/12 pack-years: 39 alcohol intake: current alcohol intake frequency: a few times a week Alcohol type: beer and wine substance use type: does not use ROS ROS ED Review of Systems ROS Unobtainable: other Details: Limited due to respiratory distress and BiPAP Constitutional Constitutional ED: Reports chills, fatigue and fever(s) Cardiovascular Cardiovascular: Denies chest pain Respiratory/Chest Respiratory/Chest: Reports cough and dyspnea Gastrointestinal Gastrointestinal: Denies abdominal pain, nausea or vomiting Musculoskeletal Musculoskeletal: Denies neck pain Neurologic Neurologic: Denies headache(s), paresthesias or weakness EXAM Physical Exam Const Vital Signs: 05/14/24 06:23 05/14/24 06:32 05/14/24 06:44 Temperature 100.3 F H Temperature Source Oral Pulse Rate 117 H 112 H Respiratory Rate 28 H 32 H Respiratory Effort Short of Breath Accessory Muscle Use Respiratory Pattern Tachypnea Blood Pressure 126/65 H Blood Pressure Mean 85 Pulse Ox 91 92 Oxygen Delivery Method Nasal Cannula Oxygen Flow Rate (L/min) 5 Fraction of Inspired Oxygen (FIO2) 40 05/14/24 06:50 05/14/24 07:20 05/14/24 08:00 Temperature Temperature Source Pulse Rate 98 781 H Respiratory Rate 18 20 H Respiratory Effort Respiratory Pattern Blood Pressure 95/45 L 108/58 L Blood Pressure Mean 61 74 Pulse Ox 93 95 98 Oxygen Delivery Method Bi-pap Bi-pap Bi-pap Oxygen Flow Rate (L/min) Fraction of Inspired Oxygen (FIO2) Positive well nourished and well developed Constitutional Narrative: Mild respiratory distress, keenly alert, conversive and able to follow commands General Appearance ED: well developed HEENT Reports moist mucous membranes normocephalic and atraumatic Eyes PERRL and EOMs intact bilaterally Neck full ROM, supple and no meningeal signs Resp Resp Narrative: Mild respiratory distress on BiPAP. Able to converse. Rales in the right base diminished on the left trachea midline. Cardio regular rate and regular rhythm Rate: tachycardic GI non-tender and non-distended Auscultation: normoactive bowel sounds Palpation: soft Back/Spine no CVA tenderness General Back: other FROM Extremity normal to inspection General Extremety ED: Negative for edema, pulses abnormal or tenderness General Extremity: Negative for edema or pulses abnormal Neuro oriented x3, CN's II-XII intact bilaterally and no sensory deficits noted Neuro Narrative: Oriented, moving all 4 extremities. Keenly alert. Sensorium / Orientation: awake and alert Motor Exam: general weakness Skin no rashes or lesions noted and no wounds MDM MDM MDM Narrative Medical decision making narrative: 1 view chest x-ray on my interpretation shows a near whiteout on the left side. The right side looks pretty clear. In comparison to her prior x-ray, she had a pleural effusion that looks larger now, she may also have infiltrate there. With her symptoms I am going to treat her in case she does, as she also has a leukocytosis, but I considered sending her for a CT to evaluate further. However, states she had a recent study, and I reviewed it on PACS; she had a CT chest/abdomen/pelvis 2 days ago. It shows moderate left pleural effusion along with stable volume loss and shift of the heart mediastinal structures to the left side. She is doing better on BiPAP. I am presuming that she has pneumonia complicating this. Her pressors have dropped and we are bolusing with fluids. She has a low-grade temperature, received Tylenol just prior to being sent here as well as a duo nebulizer from EMS. ABG shows no significant hypercapnia or acidosis. Her lactate is within normal limits 1.3, however early sepsis is being considered and treated for. she will need to be admitted to the ICU. I did clarify with that she is DNR comfort care, but they do want comfort measures including antibiotics for infections, BiPAP if it helps her b reathe better, as well as oxygen, medications/fluids. They are okay with admitting her. There also okay without escalating or intubating her, they state no life support. After all of this while waiting for the hospitalist to return call, her influenza swab returns positive for flu A. Tamiflu ordered and given. Initial troponin slightly elevated, likely due to strain and hypoxemia, will be r epeated. Lab Data Attestation: I reviewed the patient's lab results. Labs: Laboratory Results - last 24 hr 05/14/24 05/14/24 07:04 07:09 WBC 18.4 H RBC 3.40 L Hgb 10.7 L Hct 33.8 L MCV 99.4 H MCH 31.5 MCHC 31.7 L RDW Std Deviation 63.7 H RDW Coeff of Blanca 17.8 H Plt Count 376 MPV 9.6 Immature Gran % (Auto) 1.400 H Neut % (Auto) 87.4 H Lymph % (Auto) 5.3 L [place] % (Auto) 5.5 Eos % (Auto) 0.1 Baso % (Auto) 0.3 Absolute Neuts (auto) 16.1 H Absolute Lymphs (auto) 0.97 Nucleated RBC % 0 Sodium 136 Potassium 4.0 Chloride Direct 95 L Carbon Dioxide 25.4 Anion Gap 15 BUN 12 Creatinine 0.78 Estim Creat Clear Calc 56.49 Est GFR (MDRD) Non-Af 80 BUN/Creatinine Ratio 15.9 Glucose 116 H Lactic Acid 1.3 Calcium 9.0 Total Bilirubin 0.33 AST 36 H ALT 19 Alkaline Phosphatase 131 H Troponin T High Sens 45 H Total Protein 7.3 Albumin 3.7 Globulin 3.6 Albumin/Globulin Ratio 1.0 ABG Data ABG results: ABG 05/14/24 07:28 Specimen Type ART Sample Site L Radial pH 7.36 Bicarbonate Actual 25.3 Total CO2 27 Base Excess 0 O2 Saturation 94 L O2 % 40.0 ABG pCO2 45.0 ABG pO2 72 L Josias Test Positive O2 Delivery Device BiPAP Vent Mode Not entered POC PEEP 6 Peak Inspir Pressure 12 Radiography Diagnostic Testing: Clinical Impression(s) from Imaging Studies Chest X-Ray 05/14/24 07:15 IMPRESSION: The amount of left pleural effusion and associated partial passive collapse and consolidation of the adjacent left lung appears increased from the prior study. Volume loss with shift of the mediastinal and cardiac structures to the left again noted. The right lung appears clear.. Reading Location: [facility] Rhythm Strip Rhythm Strip: Sinus Tach Rate: 115 Ectopy: None EKG Initial EKG: Attestation: I personally reviewed and interpreted this EKG as follows: Interpretation: No Acute Injury Pattern, Sinus Tachycardia, LBBB and Non- Specific ST Changes Prior EKG tracings: available for review Prior: Unchanged Management Discussion w/another healthcare provider: Hospitalist Critical Care Time Critical Care Time: Yes Critical care time (excluding procedures): 30-74 minutes (38 min), Including time spent:, Discussing w/Patient &/or Family/Electronics Teacher, Discussing w/Consultants, Arranging Admission or Transfer and Performing Direct Patient Care at Bedside Discharge Plan Dx/Rx/DC Orders Clinical Impression: Acute hypoxic respiratory failure, 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
[2024-05-14] MEDS: 0.9% Normal Saline (1000mL) 1,000 ML 999 ML IV (07:08)
[2024-05-14 07:14] LABS: Absolute Lymphocyte Count 0.97 X10^3/uL (0.83-4.51); Absolute Neutrophil Count 16.1 X10^3/uL (2.0-7.7); Basophil# 0.05 X10^3/uL; Basophil% 0.3 % (0-1); Eosinophil# 0.02 X10^3/uL; Eosinophils% 0.1 % (0-5); Hematocrit 33.8 % (37-47); Hemoglobin 10.7 g/dL (12.0-15.0); Lymphocyte # 0.97 X10^3/ul (0.83-4.51); Lymphocyte % 5.3 % (19-41); Mean Corp Hgb Conc 31.7 g/dL (32-36); Mean Corpuscular Hgb 31.5 pg (27.0-32.0); Mean Corpuscular Volume 99.4 fL (81-99); Mean Platelet Vol. 9.6 fl (6.2-12.0); Monocyte# 1.02 X10^3/uL; Monocyte% 5.5 % (0-10); NRBC Flagged by Analyzer 0 % (0-5); Neutrophil # 16.07 X10^3/uL (2.7-7.7); Neutrophil % 87.4 % (47-70); Platelet Count 376 K/mm3 (150-450); RBC Distribution Width CV 17.8 % (11.6-14.6); RBC Distribution Width SD 63.7 fl (35.1-43.9); White Blood Count 18.4 K/mm3 (4.4-11.0)
--- NOTE | 2024-05-14 07:15 | RAD_ITS ---
PROCEDURE: CHEST 1 VIEW (PORTABLE) REASON FOR EXAM: Shortness of breath TECHNIQUE: Frontal view of the chest. COMPARISON: 03/26/2024 and 04/06/2024 FINDINGS: The amount of left pleural effusion and associated partial passive collapse and consolidation of the adjacent left lung appears increased from the prior study. Volume loss with shift of the mediastinal and cardiac structures to the left again noted. The right lung appears clear. Left port again noted. Fracture deformity of the proximal left humerus again seen. Partially imaged endovascular stent graft abdominal aorta RAD/Chest 1 View (Portable) IMPRESSION: The amount of left pleural effusion and associated partial passive collapse and consolidation of the adjacent left lung appears increased from the prior study. Volume loss with shift of the mediastinal and cardiac structures to the left again noted. The right lung appears clear.. Reading Location: [id number]
[2024-05-14 07:31] LABS: Allen Test Positive; Base Excess 0 mmol/L (-2 to +2); Bicarbonate 25.3 mmol/L (22-26); Blood Gas Specimen Type ART; Mode Not entered; O2 Delivery Device BiPAP; PEEP 6; PIP 12; PO2 72 mmHG (75-100); SITE L Radial; SO2 94 % (95-99); Total Carbon Dioxide 27 mmol/L; pH 7.36 (7.35-7.45)
--- NOTE | 2024-05-14 07:40 | CPS ---
Rt placed pt on BIPAP at this time, RR was in the 30s, Pt was tripoding. traffic superintendent aware and MD also aware. Pt is now resting comfortably and RR is down to 24.
[2024-05-14 07:49] LABS: AST(SGOT) 36 U/L (<=31); Alanine Aminotransfer ALT/SGPT 19 U/L (<=34); Albumin, Serum 3.7 g/dL (3.4-4.8); Alkaline Phosphatase 131 U/L (35-104); Anion Gap 15 (5-15); BUN 12 mg/dL (4-19); BUN/Creat Ratio 15.9 RATIO (10-20); Carbon Dioxide 25.4 mmol/L (22.0-29.0); Chloride 95 mmol/L (96-108); Creatinine, Serum 0.78 mg/dL (0.70-1.20); EST Glomerular Filtration Rate 80 (>60); Estimated Creatinine Clearance 56.49 ml/min (50-250); Globulin 3.6 g/dL (2.2-4.2); Glucose 116 mg/dL (70-99); Lactic Acid 1.3 mmol/L (0.0-2.0); Protein, Total 7.3 g/dL (5.9-8.4); Sodium Level 136 mmol/L (133-145); Total Bilirubin 0.33 mg/dL (0.00-1.30)
[2024-05-14 08:02] LABS: Troponin T High Sensitivity 45 ng/L (<=14)
[2024-05-14] MEDS: Piperacil/Tazobactam 4.5 GM in 0.9% Normal Saline (100mL MB+) 100 ML IV (08:27)
--- NOTE | 2024-05-14 08:27 | PCM.HP.STD ---
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 Per the family member she was at an [place] [facility] after her recent discharge for further rehabilitation. Last night the family was informed about worsening shortness of breath with increased oxygen requirement and also decreased responsiveness. Per the she was confused last night and was asking to see her parents and grandparents. No fever. At the time of presentation in the ED, blood pressure 102/58, pulse 78, respiratory rate 20, oxygen saturation 98% on BiPAP, WBC of 18.4, lactic acid 1.3, hemoglobin of 10.7, INR 1.8. AST 36, alkaline phosphatase 131, albumin 3.7. Chest x-ray showed left pleural effusion with associated passive collapse and consolidation of the chest with left lung with volume loss, shift of the mediastinum structures to the left. The overall prognosis of the patient is well understood by the family, before this episode they decided on DNR CC with no intubation. At this time the family would prefer that she is more comfortable and get noninvasive treatment as much as possible. [facility] Medical History Squamous cell carcinoma lung Debility Adult failure to thrive Supratherapeutic INR Anemia requiring transfusions Frequent falls Dehydration Falls Headache Left flank pain Clayton blood in stool Vascular device, implant, or graft complication Lung cancer History of atrial fibrillation Post-menopausal Ambulates with cane Low iron Injury of head and neck Closed fracture of left proximal humerus Carotid stenosis CVA (cerebral vascular accident) Weakness UTI (urinary tract infection) Hypoxia Anemia Prerenal azotemia Oral candidiasis Encounter for education 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 receptor positive status (ER+) Ductal carcinoma in situ (DCIS) of left breast Malignant neoplasm of unspecified site of right female breast Nontoxic single thyroid nodule Vitamin D deficiency Wears dentures Cancer Arthritis Former smoker Hypertension History of echocardiogram History of stress test Cardiology follow-up encounter Essential (primary) hypertension Hyperlipidemia Breast cancer Gout Obesity Abdominal aortic aneurysm (AAA) History of breast cancer Home Medications ?Medication ?Instructions ?Recorded ?Last Taken ?Type allopurinol 100 mg tablet 100 mg PO DAILY Cardiac 02/08/23 03/21/24 History gabapentin 100 mg capsule 100 mg PO DAILY Artheritis Pain 06/16/23 03/21/24 History duloxetine 20 mg capsule,delayed 20 mg PO DAILY depression 11/11/23 03/21/24 History release sennosides 8.6 mg-docusate sodium 2 tab PO BID PRN PRN Constipation 03/27/24 Unknown Rx 50 mg tablet (Stimulant Laxative #0 tabs Plus) acetaminophen 500 mg tablet 1,000 mg (2 x 500 mg) PO Q6H PRN 04/28/24 Unknown Rx PRN Pain Score 1-5 #0 tabs amiodarone 200 mg tablet 100 mg (1/2 x 200 mg) PO BREAKFAST 04/28/24 Unknown Rx #0 tabs benzocaine 15 mg-menthol 3.6 mg 1 zhao mucous membrane Q2H PRN PRN 04/28/24 Unknown Rx lozenges (Sore Throat (benzocaine Sore Throat #0 ea with menthol)) lidocaine 5 % topical patch 2 patch topical DAILY #0 ea 04/28/24 Unknown Rx lidocaine-prilocaine 2.5 %-2.5 % 5 g topical X1 PRN PORT ACCESS #0 04/28/24 Unknown Rx topical cream grams menthol 2 % topical gel (Blue Gel) 1 applic topical BID #0 grams 04/28/24 Unknown Rx mirtazapine 15 mg tablet 7.5 mg (1/2 x 15 mg) PO QHS #0 tabs 04/28/24 Unknown Rx oxycodone 5 mg tablet 5 mg PO Q4H PRN PRN Pain Score 04/28/24 Unknown Rx 6-10 Or Pre Pt/Ot 3 days #18 tabs potassium chloride 20 mEq 20 meq PO BIDCM #0 tabs 04/28/24 Unknown Rx tablet,extended release(part/cryst) warfarin 3 mg tablet (Jantoven) 3 mg PO DAILY@1700 #0 tabs 04/28/24 Unknown Rx cephalexin 250 mg capsule 250 mg PO DAILY 05/14/24 Unknown History metoprolol succinate 25 mg 50 mg PO DAILY 05/14/24 Unknown History tablet,extended release 24 hr [id number]-[id number] 1 tab PO DAILY 05/14/24 Unknown History tablet (Milltrium Senior tablet) valacyclovir 1 gram tablet 1,000 mg PO TID 05/14/24 Unknown History Allergy/AdvReac Type Severity Reaction Status Date / Time No Known Allergies Allergy Verified 04/24/24 13:04 Family History Father , 58 Lung cancer Mother Breast cancer Sister Breast cancer Surgical History Hx of surgical procedure History of oral surgery Amputated toe of left foot History of excision of lesion H/O: hammer toe correction S/P breast lumpectomy History of colonoscopy (~2018) S/P AAA (abdominal aortic aneurysm) repair History of hysterectomy H/O mastectomy Social History household members: spouse Smoking Status: Former smoker quit date: 03/15/12 pack-years: 39 alcohol intake: current alcohol intake frequency: a few times a week Alcohol type: beer and wine substance use type: does not use ROS Review of Systems ROS Unobtainable: due to encephalopathy, due to mental condition and due to mental status Vital Signs Vital Signs Vital Signs: 05/14/24 06:23 05/14/24 06:32 05/14/24 06:44 Temperature 100.3 F H Temperature Source Oral Pulse Rate 117 H 112 H Respiratory Rate 28 H 32 H Respiratory Effort Short of Breath Accessory Muscle Use Respiratory Pattern Tachypnea Blood Pressure 126/65 H Blood Pressure Mean 85 Pulse Ox 91 92 Oxygen Delivery Method Nasal Cannula Oxygen Flow Rate (L/min) 5 Fraction of Inspired Oxygen (FIO2) 40 05/14/24 06:50 05/14/24 07:20 05/14/24 08:00 Temperature Temperature Source Pulse Rate 98 781 H Respiratory Rate 18 20 H Respiratory Effort Respiratory Pattern Blood Pressure 95/45 L 108/58 L Blood Pressure Mean 61 74 Pulse Ox 93 95 98 Oxygen Delivery Method Bi-pap Bi-pap Bi-pap Oxygen Flow Rate (L/min) Fraction of Inspired Oxygen (FIO2) Weight Weight: 146 lb 6.191 oz Body Mass Index (BMI) 25.9 Physical Exam Const Constitutional Narrative: Drowsy, difficult to wake up Resp Resp Narrative: Bilateral conducted sounds present, diminished sounds on the left chest GI normal to inspection, nondistended, normoactive bowel sounds Extremity normal to inspection Neuro Neuro Narrative: Drowsy, difficult to arouse Results Medical Records Data Attestation: I reviewed the patient's medical records Lab / Micro Data Attestation: I reviewed the patient's lab results. 05/14/24 07:04 05/14/24 07:04 Labs: Laboratory Results - last 24 hr 05/14/24 07:04: WBC 18.4 H, RBC 3.40 L, Hgb 10.7 L, Hct 33.8 L, MCV 99.4 H, MCH 31.5, MCHC 31.7 L, RDW Std Deviation 63.7 H, RDW Coeff of Blanca 17.8 H, Plt Count 376, MPV 9.6, Immature Gran % (Auto) 1.400 H, Neut % (Auto) 87.4 H, Lymph % (Auto) 5.3 L, Sharp % (Auto) 5.5, Eos % (Auto) 0.1, Baso % (Auto) 0.3, Absolute Neuts (auto) 16.1 H, Absolute Lymphs (auto) 0.97, Nucleated RBC % 0, Sodium 136, Potassium 4.0, Chloride Direct 95 L, Carbon Dioxide 25.4, Anion Gap 15, BUN 12, Creatinine 0.78, Estim Creat Clear Calc 56.49, Est GFR (MDRD) Non-Af 80, BUN/Creatinine Ratio 15.9, Glucose 116 H, Lactic Acid 1.3, Calcium 9.0, Total Bilirubin 0.33, AST 36 H, ALT 19, Alkaline Phosphatase 131 H, Total Protein 7.3, Albumin 3.7, Globulin 3.6, Albumin/Globulin Ratio 1.0 05/14/24 07:09: Troponin T High Sens 45 H Micro: Microbiology 05/14/24 07:03 Mucosa - Nasopharyngeal SARS-CoV-2, Influenza & RSV (PCR) - Final Influenzae A ABG Data ABG results: ABG 05/14/24 07:28 Specimen Type ART Sample Site L Radial pH 7.36 Bicarbonate Actual 25.3 Total CO2 27 Base Excess 0 O2 Saturation 94 L O2 % 40.0 ABG pCO2 45.0 ABG pO2 72 L Josias Test Positive O2 Delivery Device BiPAP Vent Mode Not entered POC PEEP 6 Peak Inspir Pressure 12 Rhythm Strip Rhythm Strip: Sinus Tach Rate: 115 Ectopy: None Imaging Radiology Impression Chest X-Ray 05/14/24 07:15 IMPRESSION: The amount of left pleural effusion and associated partial passive collapse and consolidation of the adjacent left lung appears increased from the prior study. Volume loss with shift of the mediastinal and cardiac structures to the left again noted. The right lung appears clear.. Reading Location: [id number] Assessment & Plan Assessment/Plan (1) Influenza A: PLAN: Plan 73-year-old female with a history of disseminated squamous cell carcinoma of the left lung with mets, previously on palliative chemotherapy, history of repeated falls, acute on chronic anemia, paroxysmal A-fib, on chronic anticoagulation with warfarin, presents to the ED with concerns regarding worsening shortness of breath and altered mentation. Her flu a was positive in the ED and her likely reason for presentation is the acute infection superimposed on her underlying lung malignancy. This is this is a second admission in the last 3 months, she was recently transferred from [facility] to [facility] on 03/27/2024 and was presently at [facility]. #Acute on chronic respiratory failure #Squamous cell carcinoma of the lung #Influenza A -There is worsening pleural effusion on the left side, also she is influenza A positive -Continue BiPAP therapy for now -Azithromycin plus Unasyn for bacterial coverage -Discussed family's wishes, they do not want intubation at this time -May benefit from thoracentesis but family wants to provide only minimal and noninterventional care. #Altered mentation -This could be in the setting of the ongoing respiratory failure, no CO2 narcosis on recent ABG -If no improvement with respiratory support can consider CT head, knowing family does not want anything interventional #Bilateral pleural effusion -IR consult for thoracentesis #Paroxysmal A-fib -Continue Coumadin and metoprolol # Anemia of chronic disease -Continue to monitor hemoglobin #DVT prophylaxis -On therapeutic anticoagulation with Coumadin Overall the prognosis is very guarded given the burden of malignancy, patient's wishes for noninvasive ventilation. This was discussed with the family members
[2024-05-14 08:33] LABS: International Normalized Ratio 1.8; Prothrombin Time (Protime)PT. 21.6 SECONDS (11.7-14.9)
[2024-05-14 08:34] LABS: Partial Thromboplast Time 59.2 Seconds (24.1-36.2)
[2024-05-14] MEDS: Oseltamivir Phosphate 75 MG Capsule PO (08:54)
[2024-05-14] MEDS: Azithromycin 500 MG in 0.9% Normal Saline (250mL Bag) 250 ML 255 MG IV (08:54)
--- NOTE | 2024-05-14 09:00 | CPS ---
Pt wanted to come off bipap for a minute to take her meds and blow her nose. Pt tolerating 4L NC at this time
[2024-05-14 09:43] LABS: TROPONIN VARIANCE 2 HR 7; Troponin T High Sens 2 HR 39 ng/L (<=14)
[2024-05-14] MEDS: Ampicillin/Sulbactam 3 GM in 0.9% Normal Saline (100mL MB+) 100 ML IV ×3 (12:43→23:52)
[2024-05-14] MEDS: 0.9% Saline Lock 10 ML Syringe IV ×2 (12:44→17:24)
[2024-05-14 15:05] LABS: Bacteria 0 SEEN /hpf (None Seen); Mucous, Urine 0 SEEN /hpf (<or=2+); Squamous Epithelial Cells - UA 0 SEEN /hpf (5-10); White Blood Cells 0 SEEN /hpf (0-5)
[2024-05-14 15:06] LABS: Color, Urine Yellow (Yellow); Glucose, Dipstick Normal (Normal); Ketone-Dipstick Negative (Negative); Leukocyte Esterase-Dipstick Negative /ul (Negative); Nitrite-Dipstick Negative (Negative); Occult Blood-Urine 10 /ul (Negative); Protein-Dipstick 30 mg/dl (Negative); Urine Bilirubin Dipstick Negative (Negative); Urine Clarity Clear (Clear); Urine Urobilinogen Normal (Normal)
[2024-05-14 16:01] LABS: TROPONIN VARIANCE 4 HR 6; Troponin T High Sens 4 HR 39 ng/L (<=14)
[2024-05-14 16:02] LABS: Red Blood Cells-Urine 0-5 SEEN /hpf (0-5)
[2024-05-14] MEDS: Warfarin (BKC) 3 MG Tablet PO (17:23)
[2024-05-14] MEDS: Gabapentin 300 MG Capsule PO (20:08)
[2024-05-15] VITALS (8 sets, daily range): BP systolic 102–125; BP diastolic 42–79; PULSE 76–123; RESP 12–20; TEMP 36.1–36.8; O2SAT 95–99
[2024-05-15] MEDS: Acetaminophen 500 MG Tablet 1000 MG PO (00:59)
--- NOTE | 2024-05-15 03:16 | RAD_ITS ---
PROCEDURE: CHEST 1 VIEW (PORTABLE) REASON FOR EXAM: Shortness of breath TECHNIQUE: Frontal view of the chest. COMPARISON: Yesterday at 07:11 FINDINGS: No significant interval change in appearance of the chest. Large left pleural fluid nearly opacifying the entire left hemithorax with small aerated portion towards the left apex again seen. The right lung appears clear. Left port again noted. Patient is rotated to the left. RAD/Chest 1 View (Portable) IMPRESSION: No significant interval change in appearance of the chest as above.. Reading Location: [id number]
[2024-05-15] MEDS: Metoprolol(XL)Succ 50 MG Tablet PO (03:24)
[2024-05-15] MEDS: Furosemide 40 MG/4 ML Vial IV (03:32)
[2024-05-15] MEDS: 0.9% Saline Lock 10 ML Syringe IV ×2 (03:32→23:26)
[2024-05-15] MEDS: Ampicillin/Sulbactam 3 GM in 0.9% Normal Saline (100mL MB+) 100 ML IV ×4 (05:21→23:25)
[2024-05-15 07:01] LABS: Absolute Lymphocyte Count 1.11 X10^3/uL (0.83-4.51); Absolute Neutrophil Count 14.5 X10^3/uL (2.0-7.7); Basophil# 0.03 X10^3/uL; Basophil% 0.2 % (0-1); Hematocrit 34.9 % (37-47); Hemoglobin 10.6 g/dL (12.0-15.0); Lymphocyte # 1.11 X10^3/ul (0.83-4.51); Lymphocyte % 6.6 % (19-41); Mean Corp Hgb Conc 30.4 g/dL (32-36); Mean Corpuscular Hgb 30.6 pg (27.0-32.0); Mean Corpuscular Volume 100.9 fL (81-99); Mean Platelet Vol. 9.2 fl (6.2-12.0); Monocyte# 1.01 X10^3/uL; NRBC Flagged by Analyzer 0 % (0-5); Neutrophil # 14.53 X10^3/uL (2.7-7.7); Neutrophil % 86.2 % (47-70); POSITIVE MORPHOLOGY YES; Platelet Count 302 K/mm3 (150-450); RBC Distribution Width CV 17.7 % (11.6-14.6); RBC Distribution Width SD 65.9 fl (35.1-43.9); Red Blood Count 3.46 M/mm3 (4.2-5.4); White Blood Count 16.8 K/mm3 (4.4-11.0)
[2024-05-15 07:03] LABS: Differential Indicated SCAN CRITERIA MET
[2024-05-15 07:11] LABS: International Normalized Ratio 2.2; Prothrombin Time (Protime)PT. 24.6 SECONDS (11.7-14.9)
[2024-05-15 07:48] LABS: ALB/GLOB Ratio 0.9 RATIO (0.9-2.4); AST(SGOT) 36 U/L (<=31); Alanine Aminotransfer ALT/SGPT 15 U/L (<=34); Albumin, Serum 3.1 g/dL (3.4-4.8); Alkaline Phosphatase 102 U/L (35-104); Anion Gap 11 (5-15); BUN 11 mg/dL (4-19); BUN/Creat Ratio 15.3 RATIO (10-20); Calcium 8.9 mg/dL (7.6-11.0); Carbon Dioxide 28.6 mmol/L (22.0-29.0); Chloride 101 mmol/L (96-108); Creatinine, Serum 0.73 mg/dL (0.70-1.20); EST Glomerular Filtration Rate 86 (>60); Globulin 3.3 g/dL (2.2-4.2); Glucose 94 mg/dL (70-99); Magnesium 1.7 mg/dL (1.5-2.2); Phosphorus 2.8 mg/dL (2.7-4.5); Potassium 3.2 mmol/L (3.3-5.1); Protein, Total 6.5 g/dL (5.9-8.4); Sodium Level 141 mmol/L (133-145)
[2024-05-15 07:56] LABS: Anisocytosis 1+
[2024-05-15 08:07] LABS: Pro- Brain NATRIURETIC PEPTIDE 4662 pg/mL (<=900)
[2024-05-15] MEDS: DULoxetine Hcl 30 MG Capsule PO (08:49)
[2024-05-15] MEDS: Allopurinol 100 MG Tablet PO (08:49)
[2024-05-15] MEDS: Amiodarone 200 MG Tablet 100 MG PO (08:49)
[2024-05-15] MEDS: Azithromycin 500 MG in 0.9% Normal Saline (250mL Bag) 250 ML 255 MG IV (08:53)
--- NOTE | 2024-05-15 10:18 | CASEMGMT ---
TRENT went to meet with patient, but she was doing therapy. Patient's Abhi was in the hallway and stopped TRENT. Abhi said patient would really like to return to [place] at discharge. Abhi said he called [place] and left them a message. TRENT let him know that will keep [place] updated. Plan: d/c back to [place].
--- NOTE | 2024-05-15 10:21 | CASEMGMT ---
SW spoke with patient's about SDOH concerns. He denies any issues with food, transportation, and living situation. [facility] is currently at a [facility]. Alejandra TOMLINSON
--- NOTE | 2024-05-15 10:30 | PCM.PN.HOSP ---
Reason for Visit Reason for Visit: Diagnoses Influenza due to other identified influenza virus with other respiratory manifestations (05/14/24) Objective Data Objective Data Vital Signs: Vital Signs Temp Pulse Resp BP Pulse Ox O2 Del Method O2 Flow Rate 97.8 F 85 20 H 120/42 L 99 Nasal Cannula 4 05/15/24 08:10 05/15/24 08:10 05/15/24 08:10 05/15/24 08:10 05/15/24 08:10 05/15/24 09:39 05/15/24 09:39 FiO2 30 05/15/24 03:40 Oxygen Flow Rate (L/min) 4 Oxygen Delivery Method Nasal Cannula Weight: 138 lb 3.677 oz Body Mass Index (BMI) 21.6 Intake & Output: Intake and Output for Last 24 Hours 05/13/24 05/14/24 05/15/24 23:59 23:59 23:59 Intake Total 1579 / 1629 494.5 / 494.5 Output Total 600 / 600 Balance 979 / 1029 494.5 / 494.5 Lab / Micro Data 05/15/24 06:41 05/15/24 06:41 Labs: Laboratory Results - last 24 hr 05/14/24 15:00: Urine Color Yellow, Urine Clarity Clear, Urine pH 6.0, Ur Specific [place] 1.020, Urine Protein 30 H, Urine Glucose (UA) Normal, Urine Ketones Negative, Urine Occult Blood 10 H, Urine Nitrite Negative, Urine Bilirubin Negative, Urine Urobilinogen Normal, Ur Leukocyte Esterase Negative, Urine RBC 0-5 SEEN, Urine WBC 0 SEEN, Ur Squamous Epith Cells 0 SEEN, Urine Bacteria 0 SEEN, Urine Mucus 0 SEEN 05/14/24 15:11: Troponin T Hi Sens 4Hr 39 H, Troponin T Hi Sens 4Hr Delta 6 05/15/24 06:41: WBC 16.8 H, RBC 3.46 L, Hgb 10.6 L, Hct 34.9 L, MCV 100.9 H, MCH 30.6, MCHC 30.4 L, RDW Std Deviation 65.9 H, RDW Coeff of Blanca 17.7 H, Plt Count 302, MPV 9.2, Immature Gran % (Auto) 1.000 H, Neut % (Auto) 86.2 H, Lymph % (Auto) 6.6 L, Kings % (Auto) 6.0, Eos % (Auto) 0.0, Baso % (Auto) 0.2, Absolute Neuts (auto) 14.5 H, Absolute Lymphs (auto) 1.11, Nucleated RBC % 0, Anisocytosis 1+, PT 24.6 H, INR 2.2, Sodium 141, Potassium 3.2 L, Chloride Direct 101, Carbon Dioxide 28.6, Anion Gap 11, BUN 11, Creatinine 0.73, Estim Creat Clear Calc 60.00, Est GFR (MDRD) Non-Af 86, BUN/Creatinine Ratio 15.3, Glucose 94, Calcium 8.9, Phosphorus 2.8, Magnesium 1.7, Total Bilirubin 0.20, Direct Bilirubin 0.10, AST 36 H, ALT 15, Alkaline Phosphatase 102, NT pro BNP II 4662 H, Total Protein 6.5, Albumin 3.1 L, Globulin 3.3, Albumin/Globulin Ratio 0.9, TSH 2.700 Micro: Microbiology 05/14/24 07:03 Mucosa - Nasopharyngeal SARS-CoV-2, Influenza & RSV (PCR) - Final Influenzae A Radiography Diagnostic Testing: Radiology Impression Chest X-Ray 05/15/24 03:16 IMPRESSION: No significant interval change in appearance of the chest as above.. Reading Location: [facility] Rhythm Strip Rhythm Strip: Sinus Tach Rate: 115 Ectopy: None Physical Exam Narrative Patient was admitted for shortness of breath and wheezing. History of lung cancer. She is very weak and dyspnea on exertion. Chronically on oxygen Physical exam General: Alert, Oriented x3, Cooperative HEENT: Atraumatic, PERRLA, EOMI, Normocephalic Oral: No Gingival or Mucosal Lesions/ Ulcerations Neck: Supple, No JVD, Negative Carotid Bruits Chest wall/Lungs: Air entry severely diminished in the left lung. Left large pleural effusion. No crepitation/rhonchi Cardiovascular: Regular rate, Regular Rhythm, Normal S1, Normal S2, No M/G/R Abdomen: Bowel Sounds Present, Soft, Non Tender, Non-Distended : No dysuria. No renal angle tenderness. No suprapubic tenderness. Extremities: No edema, Capillary Refill Less than 3 Seconds Skin: No rashes, No breakdown Musculoskeletal: No Tenderness to Palpation of Joints or Extremities Neurological: Cranial nerves II-XII grossly intact, DTR 2+/4. No acute focal neurological deficit. Psych/Mental Status: Normal Affect, Appropriate. 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 This is this is a second admission in the last 3 months, she was recently transferred from [facility] to [facility], on 03/27/2024 and was presently at [facility]. #Acute on chronic respiratory failure probably due to large left pleural effusion and influenza A: Patient usually on 2 L of oxygen. Currently on 4 L of oxygen. Respiratory rate 20/min. Patient was on BiPAP. Currently on nasal cannula. On Unasyn and azithromycin. Ultrasound-guided thoracocentesis ordered for symptomatic relief. Patient is DNR CC with no intubation Leukocytosis improving. Has elevated proBNP #Altered mentation -This could be in the setting of the ongoing respiratory failure, no CO2 narcosis on recent ABG -If no improvement with respiratory support can consider CT head, knowing family does not want anything interventional #Bilateral pleural effusion -IR consult for thoracentesis #Paroxysmal A-fib -Continue Coumadin and metoprolol # Anemia of chronic disease -Continue to monitor hemoglobin #DVT prophylaxis Warfarin on hold for for procedure tomorrow. INR 2.2. -On therapeutic anticoagulation with Coumadin Charges/Coding Visit Charges Inpatient E&M: 12817 Subs Hosp L2
--- NOTE | 2024-05-15 10:34 | CASEMGMT ---
Addendum entered by Delfina Martinez 05/15/24 11:03: No precert is needed. Delfina Martinez DC Planning Asst. Original Note: Discharge Planning Updates sent to [facility] with note asking if precert is needed. Delfina Martinez DC Planning Asst.
[2024-05-15] MEDS: oxyCODONE 5 MG Tablet PO (13:27)
[2024-05-15] MEDS: Benzonatate 100 MG Capsule 200 MG PO (13:27)
[2024-05-15] MEDS: Potassium Chloride Oral Tablet 20 MEQ 40 MEQ PO ×2 (17:24→19:50)
[2024-05-15] MEDS: Gabapentin 300 MG Capsule PO (22:35)
[2024-05-16] VITALS (7 sets, daily range): BP systolic 100–119; BP diastolic 60–64; PULSE 79–89; RESP 18–25; TEMP 36.4–36.9; O2SAT 89–99
[2024-05-16] MEDS: Ampicillin/Sulbactam 3 GM in 0.9% Normal Saline (100mL MB+) 100 ML IV ×4 (05:56→23:49)
[2024-05-16 06:35] LABS: LDH 179 U/L (84-246)
[2024-05-16 06:47] LABS: International Normalized Ratio 2.6; Prothrombin Time (Protime)PT. 28.2 SECONDS (11.7-14.9)
[2024-05-16 06:49] LABS: Partial Thromboplast Time 77.5 Seconds (24.1-36.2)
[2024-05-16 07:10] LABS: Protein, Total 5.8 g/dL (5.9-8.4)
[2024-05-16] MEDS: Albuterol 2.5 MG/3 ML VIAL.NEB. INHALATION (09:51)
[2024-05-16] MEDS: Phytonadione (Vit K) 2.5 MG in 0.9% Normal Saline (50mL Bag) 50 ML 150 MG IV (10:08)
[2024-05-16] MEDS: Azithromycin 500 MG in 0.9% Normal Saline (250mL Bag) 250 ML 255 MG IV (10:40)
[2024-05-16] MEDS: DULoxetine Hcl 30 MG Capsule PO (10:40)
[2024-05-16] MEDS: Allopurinol 100 MG Tablet PO (10:40)
[2024-05-16] MEDS: Metoprolol(XL)Succ 50 MG Tablet PO (10:40)
[2024-05-16] MEDS: Amiodarone 200 MG Tablet 100 MG PO (10:40)
[2024-05-16] MEDS: Benzonatate 100 MG Capsule 200 MG PO (12:26)
[2024-05-16 15:22] LABS: International Normalized Ratio 1.8; Prothrombin Time (Protime)PT. 21.4 SECONDS (11.7-14.9)
--- NOTE | 2024-05-16 15:25 | PCM.PN.HOSP ---
Reason for Visit Reason for Visit: Diagnoses Influenza due to other identified influenza virus with other respiratory manifestations (05/14/24) Objective Data Objective Data Vital Signs: Vital Signs Temp Pulse Resp BP Pulse Ox O2 Del Method O2 Flow Rate 97.5 F L 89 24 H 117/63 90 Nasal Cannula 5 05/16/24 14:34 05/16/24 14:34 05/16/24 14:34 05/16/24 14:34 05/16/24 14:38 05/16/24 14:38 05/16/24 14:38 FiO2 30 05/15/24 23:22 Oxygen Flow Rate (L/min) 5 Oxygen Delivery Method Nasal Cannula Weight: 138 lb 3.677 oz Body Mass Index (BMI) 21.6 Intake & Output: Intake and Output for Last 24 Hours 05/14/24 05/15/24 05/16/24 23:59 23:59 23:59 Intake Total 1579 / 1629 718.5 / 718.5 641.25 / 641.25 Output Total 600 / 600 Balance 979 / 1029 718.5 / 718.5 641.25 / 641.25 Lab / Micro Data 05/15/24 06:41 05/15/24 06:41 Labs: Laboratory Results - last 24 hr 05/16/24 05:17: PT 28.2 H, INR 2.6, APTT 77.5 H, Lactate Dehydrogenase 179, Total Protein 5.8 L 05/16/24 14:53: PT 21.4 H, INR 1.8, APTT 61.0 H Micro: Microbiology 05/14/24 07:35 Blood Culture (Wb) - Anticubital Left Blood Culture - Preliminary No growth in 48 hours. 05/14/24 07:04 Blood Culture (Wb) - Anticubital Left Blood Culture - Preliminary No growth in 48 hours. 05/14/24 15:00 Urine, Clean Catch Urine Culture - Final Culture exhibits no growth. 05/14/24 07:03 Mucosa - Nasopharyngeal SARS-CoV-2, Influenza & RSV (PCR) - Final Influenzae A Rhythm Strip Rhythm Strip: Sinus Tach Rate: 115 Ectopy: None Physical Exam Narrative Seen and examined in the morning. She was little bit drowsy and lethargic in the morning but later she was fine and walking with the help of physical therapy in the hallway. Plan for thoracocentesis for left large pleural effusion with right lung. History of lung cancer. She is very weak and dyspnea on exertion. Chronically on oxygen Physical exam General: Alert, Oriented x3, Cooperative HEENT: Atraumatic, PERRLA, EOMI, Normocephalic Oral: No Gingival or Mucosal Lesions/ Ulcerations Neck: Supple, No JVD, Negative Carotid Bruits Chest wall/Lungs: Air entry severely diminished in the left lung. Left large pleural effusion. Transmitted sound from the throat/wheezing. Cardiovascular: Regular rate, Regular Rhythm, Normal S1, Normal S2, No M/G/R Abdomen: Bowel Sounds Present, Soft, Non Tender, Non-Distended : No dysuria. No renal angle tenderness. No suprapubic tenderness. Extremities: No edema, Capillary Refill Less than 3 Seconds Skin: No rashes, No breakdown Musculoskeletal: No Tenderness to Palpation of Joints or Extremities Neurological: Cranial nerves II-XII grossly intact, DTR 2+/4. No acute focal neurological deficit. Psych/Mental Status: Flat affect. 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 This is this is a second admission in the last 3 months, she was recently transferred from [facility] to [facility], on 03/27/2024 and was presently at [facility]. #Acute on chronic respiratory failure probably due to large left pleural effusion and influenza A: Patient usually on 2 L of oxygen. Currently on 4 L of oxygen. Respiratory rate 20/min. Patient was on BiPAP. Currently on nasal cannula. On Unasyn and azithromycin. Ultrasound-guided thoracocentesis ordered for symptomatic relief. Patient is DNR CC with no intubation Leukocytosis improving. Has elevated proBNP 3/4: INR was 2.6 today and vitamin K 2.5 mg IV ordered. Repeat INR is 1.8. Patient in the ultrasound for ultrasound-guided thoracocentesis. Fluid analysis labs ordered. There is suspicion of underlying pneumonia/aspiration pneumonia therefore patient on Unasyn and azithromycin. #Altered mentation -This could be in the setting of the ongoing respiratory failure, no CO2 narcosis on recent ABG -If no improvement with respiratory support can consider CT head, knowing family does not want anything interventional 3/4: It is intermittent probably metabolic encephalopathy from respiratory cause. #Bilateral pleural effusion -IR consult for thoracentesis #Paroxysmal A-fib -Continue Coumadin and metoprolol # Anemia of chronic disease -Continue to monitor hemoglobin H&H 10.6/35%. Platelet count 302,000. #DVT prophylaxis Warfarin on hold for for procedure tomorrow. INR 2.2. -On therapeutic anticoagulation with Coumadin Charges/Coding Visit Charges Inpatient E&M: 42674 Subs Hosp L2
--- NOTE | 2024-05-16 15:38 | PCM.PN.BLA ---
Progress Note The patient was brought down to radiology for a potential thoracentesis. An ultrasound survey was conducted; however, the fluid appeared to be loculated in several pockets. There was a potential small fluid pocket that could be drained on the left side. I spoke with the hospitalist, Dr. Dawson, who would like a diagnostic sample if it is able to be obtained safely. This will have to be assessed by the interventional radiologist on 05/17.
[2024-05-16] MEDS: Menthol/Lanolin/Calamine/Znox 113 GM Tube 1 APPLIC TOPICAL (22:26)
[2024-05-16] MEDS: Gabapentin 300 MG Capsule PO (22:26)
[2024-05-17] VITALS (11 sets, daily range): BP systolic 119–142; BP diastolic 60–68; PULSE 85–95; RESP 18–24; TEMP 36.1–36.9; O2SAT 90–100
[2024-05-17] MEDS: Benzonatate 100 MG Capsule 200 MG PO (00:13)
[2024-05-17] MEDS: Albuterol 2.5 MG/3 ML VIAL.NEB. INHALATION ×3 (04:59→17:17)
[2024-05-17] MEDS: 0.9% Saline Lock 10 ML Syringe IV ×3 (05:04→10:46)
[2024-05-17] MEDS: Ampicillin/Sulbactam 3 GM in 0.9% Normal Saline (100mL MB+) 100 ML IV ×4 (05:05→23:07)
[2024-05-17] MEDS: Azithromycin 500 MG in 0.9% Normal Saline (250mL Bag) 250 ML 255 MG IV (09:34)
[2024-05-17] MEDS: Amiodarone 200 MG Tablet 100 MG PO (09:47)
[2024-05-17] MEDS: Allopurinol 100 MG Tablet PO (09:48)
[2024-05-17] MEDS: Metoprolol(XL)Succ 50 MG Tablet PO (09:49)
[2024-05-17] MEDS: DULoxetine Hcl 30 MG Capsule PO (09:49)
[2024-05-17] MEDS: oxyCODONE 5 MG Tablet PO ×2 (10:45→17:40)
--- NOTE | 2024-05-17 15:05 | PCM.PN.HOSP ---
Reason for Visit Reason for Visit: Diagnoses Influenza due to other identified influenza virus with other respiratory manifestations (05/14/24) Objective Data Objective Data Vital Signs: Vital Signs Temp Pulse Resp BP Pulse Ox O2 Del Method O2 Flow Rate 97.7 F L 89 20 H 119/60 98 Nasal Cannula 4 05/17/24 09:43 05/17/24 09:49 05/17/24 09:43 05/17/24 09:49 05/17/24 09:53 05/17/24 13:17 05/17/24 13:17 FiO2 30 05/15/24 23:22 Oxygen Flow Rate (L/min) 4 Oxygen Delivery Method Nasal Cannula Weight: 138 lb 3.677 oz Body Mass Index (BMI) 21.6 Intake & Output: Intake and Output for Last 24 Hours 05/15/24 05/16/24 05/17/24 23:59 23:59 23:59 Intake Total 718.5 / 718.5 853.25 / 853.25 831 / 831 Output Total 300 / 300 Balance 718.5 / 718.5 853.25 / 853.25 531 / 531 Lab / Micro Data 05/15/24 06:41 05/15/24 06:41 Labs: Laboratory Results - last 24 hr 05/16/24 14:53: PT 21.4 H, INR 1.8, APTT 61.0 H Micro: Microbiology 05/14/24 07:35 Blood Culture (Wb) - Anticubital Left Blood Culture - Preliminary No growth in 48 hours. 05/14/24 07:04 Blood Culture (Wb) - Anticubital Left Blood Culture - Preliminary No growth in 48 hours. 05/14/24 15:00 Urine, Clean Catch Urine Culture - Final Culture exhibits no growth. 05/14/24 07:03 Mucosa - Nasopharyngeal SARS-CoV-2, Influenza & RSV (PCR) - Final Influenzae A Rhythm Strip Rhythm Strip: Sinus Tach Rate: 115 Ectopy: None Physical Exam Narrative Seen and examined in the morning. Patient is awake and alert. Her is upset about multiple tests and ultrasound being done without adding any significance to the management. She had an MRI of the brain in early 2024 and bone scan. History of lung cancer. She is very weak and dyspnea on exertion. Chronically on oxygen Physical exam General: Alert, Oriented x3, Cooperative HEENT: Atraumatic, PERRLA, EOMI, Normocephalic Oral: No Gingival or Mucosal Lesions/ Ulcerations Neck: Supple, No JVD, Negative Carotid Bruits Chest wall/Lungs: Air entry severely diminished in the left lung. Left large loculated pleural effusion. Transmitted sound from the throat/wheezing. Cardiovascular: Regular rate, Regular Rhythm, Normal S1, Normal S2, No M/G/R Abdomen: Bowel Sounds Present, Soft, Non Tender, Non-Distended : No dysuria. No renal angle tenderness. No suprapubic tenderness. Extremities: No edema, Capillary Refill Less than 3 Seconds Skin: No rashes, No breakdown Musculoskeletal: No Tenderness to Palpation of Joints or Extremities Neurological: Cranial nerves II-XII grossly intact, DTR 2+/4. No acute focal neurological deficit. Psych/Mental Status: Flat affect. 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 This is this is a second admission in the last 3 months, she was recently transferred from [facility] to [facility], on 03/27/2024 and was presently at [facility]. #Acute on chronic respiratory failure probably due to large left pleural effusion and influenza A: Patient usually on 2 L of oxygen. Currently on 4 L of oxygen. Respiratory rate 20/min. Patient was on BiPAP. Currently on nasal cannula. On Unasyn and azithromycin. Ultrasound-guided thoracocentesis ordered for symptomatic relief. Patient is DNR CC with no intubation Leukocytosis improving. Has elevated proBNP /: INR was 2.6 today and vitamin K 2.5 mg IV ordered. Repeat INR is 1.8. Patient in the ultrasound for ultrasound-guided thoracocentesis. Fluid analysis labs ordered. There is suspicion of underlying pneumonia/aspiration pneumonia therefore patient on Unasyn and azithromycin. 05/17: After discussion with interventional radiologist, ultrasound-guided thoracocentesis was canceled because of multiple loculated left pleural effusion with largest pocket showing about 50 mL and high risk complications. Patient family especially wanted further prognosis and what needs to be done. In my opinion, her physical working Karnofsky performance is is poor and not candidate for chemotherapy or radiotherapy. Hospice consult is appropriate but patient's wants to hear from oncologist. Yesterday I called Dr. Pringle's phone but his number is changed. Then I called oncology [employer], Roya Jane and oncology consult requested. Today I talked to Dr. Pringle and he said he is just back to work and wanted Dr. Kelly for the consult. Patient on Unasyn and Tamiflu as antimicrobial agent. She had 3 doses of azithromycin therefore discontinued. Blood culture negative for 48 hours. Urine culture shows no growth #Altered mentation -This could be in the setting of the ongoing respiratory failure, no CO2 narcosis on recent ABG -If no improvement with respiratory support can consider CT head, knowing family does not want anything interventional 05/16: It is intermittent probably metabolic encephalopathy from respiratory cause. 05/17: Patient is in normal baseline mentation. Acute encephalopathy most likely metabolic is resolved #Bilateral pleural effusion -Left large loculated pleural effusion please see above. #Paroxysmal A-fib -Continue Coumadin and metoprolol # Anemia of chronic disease -Continue to monitor hemoglobin H&H 10.6/35%. Platelet count 302,000. #DVT prophylaxis Warfarin on hold for for procedure tomorrow. INR 2.2. -On therapeutic anticoagulation with Coumadin 05/17: INR 1.8. As thoracocentesis canceled therefore warfarin resumed Left lung metastatic squamous cell carcinoma Chest abdomen CT scan on 05/12 reported multiple hypodense nodules including new 7.4 mm hypodense nodule in the peripheral lateral aspect of right lobe of liver and multiple throughout the right lobe of the liver suggestive of possible metastasis. Stable volume loss in left hemithorax with shift of mediastinal structures to the left side. Stable moderate size left pleural effusion with loculation and volume loss. Stable 8 mm spiculated nodule in right lung apex. Bony scan shows metastatic deposits to the proximal metaphysis of left humerus, T4 or T5 vertebrae. Brain MRI shows lesion in the anterior limb of corpuscle striate on/caudate head favors prior infarction. Metastatic lesion less likely. Discharge medication reconciliation done. Discharge follow-up instructions completed. Discharge process discussed with the patient and all questions were answered to patient's satisfaction. Follow with PCP in 1 to 2 weeks Total time spent, exact 35 minutes on discharge meds reconciliation, examination, coordination of care with nurses and ancillary staff, review of imaging and blood test and discussion with the patient on follow-up instructions. Microbiology Past 72 Hours 05/14/24 07:35 Blood Culture (Wb) - Anticubital Left Blood Culture - Preliminary No growth in 48 hours. 05/14/24 07:04 Blood Culture (Wb) - Anticubital Left Blood Culture - Preliminary No growth in 48 hours. 05/14/24 15:00 Urine, Clean Catch Urine Culture - Final Culture exhibits no growth. Laboratory Results 05/16/24 14:53: PT 21.4 H, INR 1.8, APTT 61.0 H Charges/Coding Visit Charges Inpatient E&M: 57585 Subs Hosp L3
--- NOTE | 2024-05-17 17:18 | CON.PCM.ON_ITS ---
Assessment & Plan Assessment/Plan (1) Influenza A: Status: Acute Code(s): J10.1 - Influenza due to other identified influenza virus with other respiratory manifestations (2) Squamous cell carcinoma lung: Status: Chronic Code(s): C34.90 - Malignant neoplasm of unspecified part of unspecified bronchus or lung Plan: 73-year-old female with metastatic non-small cell lung cancer status post concomitant chemoradiation in 2022, combination chemo immune therapy (carboplatin, Abraxane and pembrolizumab) for recurrent disease December - February 2024. Patient has been off systemic therapy in 2024 due to intercurrent acute illnesses and failing performance status. She was hospitalized at [facility] in April 2024 with debility and was discharged to a fpc facility for rehab. May 12, [address] scan showed progression of her cancer with involvement of liver metastasis and bone scan May 08, 2024 suggested bone metastasis. As per patient and her they believe that she was slowly improving until her acute readmission on May 14, 2024 with acute influenza. Discussed with patient and her the findings on her most recent imaging showing progression of her cancer on combined chemoimmunotherapy. Options at this time are: 1. Comfort measures only on hospice. 2. Consider further systemic therapy with a palliative intent plus or minus modest survival benefit if she were to recover from her acute viral illness, and improve in functional status with further rehab. The patient was undecided about these 2 options. She will discuss with her and daughter and convey her decision to the hospitalist. Thank you for involving us in her care. If she would decide to pursue further systemic therapy after recovery from acute viral illness and some rehab Dr. Pringle will see her in the outpatient office. (3) Metastatic bone tumor: Status: Acute Code(s): C79.51 - Secondary malignant neoplasm of bone (4) Metastasis to liver: Status: Acute Code(s): C78.7 - Secondary malignant neoplasm of liver and intrahepatic bile duct HPI Consult Data Date of Service:: 05/17/24 PCP / Referring Provider: Dr. Walter Emanuel MD Attending: Dr. Jatin Dawson MD Chief Complaint Chief Complaint: Dyspnea History of Present Illness History of Present Illness: 73-year-old female with metastatic non-small cell lung cancer status post concomitant chemoradiation in 2022, combination chemo immune therapy (carbo platin, Abraxane and pembrolizumab) for recurrent disease December - February 2024. Patient has been off systemic therapy in 2024 due to intercurrent acute illnesses and failing performance status. She was hospitalized at [facility] in April 2024 with debility and was discharged to a fpc facility for rehab. May 12, [address] scan showed progression of her cancer with involvement of liver metastasis and bone scan May 08, 2024 suggested bone metastasis. As per patient and her they believe that she was slowly improving until her acute readmission on May 14, 2024 with acute influenza. Advanced Directives Power of Assistant Professor Of Art: Yes Living Will: Yes [facility] Medical History (Updated 05/17/24 @ 17:[address] Kirk Kelly MD) Metastasis to liver Squamous cell carcinoma lung Debility Adult failure to thrive Supratherapeutic INR Anemia requiring transfusions Frequent falls Dehydration Falls Headache Left flank pain Clayton blood in stool Vascular device, implant, or graft complication Lung cancer History of atrial fibrillation Post-menopausal Ambulates with cane Low iron Injury of head and neck Closed fracture of left proximal humerus Carotid stenosis CVA (cerebral vascular accident) Weakness UTI (urinary tract infection) Hypoxia Anemia Prerenal azotemia Oral candidiasis Encounter for education 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 receptor positive status (ER+) Ductal carcinoma in situ (DCIS) of left breast Malignant neoplasm of unspecified site of right female breast Nontoxic single thyroid nodule Vitamin D deficiency Wears dentures Cancer Arthritis Former smoker Hypertension History of echocardiogram History of stress test Cardiology follow-up encounter Essential (primary) hypertension Hyperlipidemia Breast cancer Gout Obesity Abdominal aortic aneurysm (AAA) History of breast cancer Home Medications ?Medication ?Instructions ?Recorded ?Last Taken ?Type allopurinol 100 mg tablet 100 mg PO DAILY Cardiac 01/1403/21/24 History gabapentin 100 mg capsule 100 mg PO DAILY Artheritis P ain 06/16/23 03/21/24 History duloxetine 20 mg capsule,delayed 30 mg PO DAILY depres ernesto 11/11/23 03/21/24 History release sennosides 8.6 mg-docusate sodium 2 tab PO BID PRN PRN Constipation 03/27/24 Unknown Rx 50 mg tablet (Stimulant Laxative #0 tabs Plus) acetaminophen 500 mg tablet 1,000 mg (2 x 500 mg) PO Q 6H PRN 04/28/24 Unknown Rx PRN Pain Score 1-5 #0 tabs amiodarone 200 mg tablet 100 mg (1/2 x 200 mg) PO ANGELA AKFAST 04/28/24 Unknown Rx #0 tabs benzocaine 15 mg-menthol 3.6 mg 1 zhao mucous membrane Q2H PRN PRN 04/28/24 Unknown Rx lozenges (Sore Throat (benzocaine Sore Throat #0 ea with menthol)) lidocaine 5 % topical patch 2 patch topical DAILY #0 e a 04/28/24 Unknown Rx lidocaine-prilocaine 2.5 %-2.5 % 5 g topical X1 PRN PO RT ACCESS #0 04/28/24 Unknown Rx topical cream grams menthol 2 % topical gel (Blue Gel) 1 applic topical BI D #0 grams 04/28/24 Unknown Rx mirtazapine 15 mg tablet 7.5 mg (1/2 x 15 mg) PO QHS #0 tabs 04/28/24 Unknown Rx oxycodone 5 mg tablet 5 mg PO Q4H PRN PRN Pain Sco re 04/28/24 Unknown Rx 6-10 Or Pre Pt/Ot 3 days #18 tabs potassium chloride 20 mEq 20 meq PO BIDCM #0 tabs 04/15 07/07 Unknown Rx tablet,extended release(part/cryst) cephalexin 250 mg capsule 250 mg PO DAILY 05/14/24 Unk nown History gabapentin 300 mg capsule 300 mg PO QHS Arthritic Pain 05/14/24 Unknown History metoprolol succinate 25 mg 50 mg PO DAILY 05/14/24 Unk nown History tablet,extended release 24 hr zxgqlcdfhnat-tqlfhpzf-xqtqjr 1 tab PO DAILY 05/14/24 U nknown History tablet (Milltrium Senior tablet) valacyclovir 1 gram tablet 1,000 mg PO TID 05/14/24 Un known History warfarin 3 mg tablet (Jantoven) 3 mg PO .TTHSASU Blood Thinner 05/14/24 Unknown History warfarin 4 mg tablet 4 mg PO .MWF Blood Thinner 0 05/14/24 Unknown History Allergy/AdvReac Type Severity Reaction Status Date / Time No Known Allergies Allergy Verified 04/24/24 13:04 Family History Father , 58 Lung cancer Mother Breast cancer Sister Breast cancer Surgical History Hx of surgical procedure History of oral surgery Amputated toe of left foot History of excision of lesion H/O: hammer toe correction S/P breast lumpectomy History of colonoscopy (~2019) S/P AAA (abdominal aortic aneurysm) repair History of hysterectomy H/O mastectomy Social History household members: spouse Smoking Status: Former smoker quit date: 03/15/12 pack-years: 39 alcohol intake: current alcohol intake frequency: a few times a week Alcohol type: beer and wine substance use type: does not use ROS Constitutional Constitutional: Reports fatigue Cardiovascular Cardiovascular: Reports dyspnea at rest Physical Exam Narrative Patient is bedbound on oxygen Const alert and oriented x3 Vital Signs Temperature 98.5 F 05/17/24 15:00 Temperature Source Oral 05/17/24 15:00 Pulse Rate 85 05/17/24 15:00 Pulse Strength Normal (2+) 05/14/24 10:00 Respiratory Rate 18 05/17/24 15:00 Respiratory Effort Normal, Non-Labored, Short of Breath 05/17/24 13:17 Respiratory Depth Normal 05/17/24 13:17 Respiratory Pattern Normal 05/17/24 13:17 Blood Pressure 119/68 05/17/24 15:00 Blood Pressure Mean 85 05/17/24 15:00 Blood Pressure Source Monitor 05/17/24 15:00 Blood Pressure Position Semi-Fowlers 05/17/24 15:00 Blood Pressure Location Right Arm 05/17/24 15:00 Pulse Ox 96 05/17/24 15:00 Oxygen Delivery Method Nasal Cannula 05/17/24 15:00 Oxygen Flow Rate (L/min) 3 05/17/24 15:00 Fraction of Inspired Oxygen (FIO2) 30 05/15/24 23:22 Diagnostic Data Chest X-Ray 05/15/24 03:16 IMPRESSION: No significant interval change in appearance of the chest as above.. Reading Location: [facility] Imaging Services [address] [place] [id number] Chest AND Abd W/ Contrast MR#: [id number] Acct: [id number] Name: OSMIN DAN Rep #: [id number] : 1950 F 73 From: Joseph Ott MD PCP: Dr. Walter Emanuel MD Status: REG CLI Study: CT Chest AND Abd W/ Contrast Date of Exam: 05/12/24 Exam# [id number] Ordering Dr: Roya Jane ADMISSIONS SUPERVISOR ADMISSIONS SUPERVISOR-C PROCEDURE: CT CHEST AND ABD W/ CONTRAST REASON FOR EXAM: Restaging of squamous cell carcinoma. TECHNIQUE: Chest and abdomen CT with intravenous contrast. No oral contrast. CONTRAST: 75 cc of Isovue 370. COMPARISON: Comparison is made with prior study dated March 23, 2024. FINDINGS: CT CHEST: Hardware: A left-sided port a catheter is seen with the tip in the superior vena cava. Lymph nodes: No mediastinal, hilar, or axillary lymphadenopathy. Heart and Vasculature: Normal heart size. No pericardial effusion. Atherosclerotic calcifications of the thoracic aorta. Pulmonary arteries are unremarkable. Lungs and Airways: Stable volume loss in the left hemithorax with shift of the heart and mediastinal structures to the left side of the thorax. Stable moderate-sized left pleural effusion with loculation and volume loss in the left lung. Stable 8 mm spiculated nodule in the anterior aspect of the right lung apex. Hyperinflation of the right lung with scarring at the lung bases. Stable complete collapse of an upper dorsal vertebrae. CT ABDOMEN: There is a new 7.4 mm hypodense nodule in the peripheral lateral aspect of the right lobe of the liver superiorly. A similar-appearing hypodense nodule measuring 1 cm seen in the caudate lobe. There is also evidence of a 8.2 mm nodule in the anterior central portion of the right lobe of the liver as well as scattered subcentimeter hypodense nodules in the inferior aspect of the right lobe of the liver. Metastatic deposit should be ruled out. Gallbladder: Unremarkable. Spleen: Unremarkable. Pancreas: Unremarkable. Adrenals: Unremarkable. Kidneys: Stable small left renal cyst. Bowel: Visualized loops of bowel in the upper abdomen are unremarkable. Lymph nodes: No suspicious lymph node enlargement at the upper abdomen. Vasculature: Status post endoluminal stent grafting of an infrarenal abdominal aortic aneurysm. This is unchanged. Peritoneum / Retroperitoneum: No ascites or free air at the upper abdomen. Bones: Degenerative changes of the spine. CT/CT Chest AND Abd W/ Contrast IMPRESSION: Stable appearance of the chest. Since prior study, there is evidence of multiple hypodense nodules throughout the right lobe of the liver as described suggestive of possible metastasis. Evidence of prior endoluminal stent grafting of an infrarenal abdominal aortic aneurysm. One or more dose reduction techniques were used (e.g., Automated exposure control, adjustment of the mA and/or kV according to patient size, use of iterative reconstruction technique). Reading Location: [id number] CC: ADMISSIONS SUPERVISOR-Xavier Jane; Dr. Walter Emanuel MD ~ Metal Filer: Signed [facility] Imaging Services [address] [place] [id number] Bone Scan Whole Body MR#: [id number] Acct: [id number] Name: OSMIN DAN Rep #: [id number] : 1950 F 73 From: Joseph Ott MD PCP: Dr. Walter Emanuel MD Status: REG CLI Study: Bone Scan Whole Body Date of Exam: 05/08/24 Exam# [id number] Ordering Dr: Roya Jane NP, NP-Xavier PROCEDURE: BONE SCAN WHOLE BODY REASON FOR EXAM: History of small-cell lung cancer. Restaging. TECHNIQUE: Whole-body bone scan with anterior and posterior views. Imaging at 2 hours RADIOPHARMACEUTICAL: 27 mCi Technetium-99m MDP IV COMPARISON: No existing relevant imaging study available or patient did not have a previous relevant imaging study. FINDINGS: Bones: Increased radiopharmaceutical uptake is seen in the T4 or T5 vertebrae. Increased uptake is also seen in the proximal metaphysis of the left humerus as well as the anterior aspects of the right 10th 11th and 12th ribs. Metastatic deposit should be ruled out. Increased uptake in the medial aspects of both knee joints suggestive of degenerative change. Kidneys: Normal activity is identified at both kidneys. NM/Bone Scan Whole Body IMPRESSION: Findings suggestive of metastatic deposits to the proximal metaphysis of the left humerus as well as a T4 or T5 vertebrae. Increased uptake also seen along the anterior aspect of the right 10th 11th and 12th ribs most likely due to trauma. Increased uptake along the medial aspects of both knee joints suggestive of degenerative change. Reading Location: [id number] CC: DAYO Jane; Dr. Walter Emanuel MD ~ Metal Filer: Signed
[2024-05-17] MEDS: Oseltamivir Phosphate 75 MG Capsule PO (17:30)
[2024-05-17] MEDS: Menthol/Lanolin/Calamine/Znox 113 GM Tube 1 APPLIC TOPICAL (22:55)
[2024-05-17] MEDS: Gabapentin 300 MG Capsule PO (23:05)
[2024-05-18] VITALS (9 sets, daily range): BP systolic 137–180; BP diastolic 77–99; PULSE 88–99; RESP 15–24; TEMP 36.3–36.7; O2SAT 100
[2024-05-18] MEDS: Ampicillin/Sulbactam 3 GM in 0.9% Normal Saline (100mL MB+) 100 ML IV ×4 (04:51→23:37)
--- NOTE | 2024-05-18 04:57 | NURSING ---
2300: pt refusing Bipap at this time. RT @ bedside. pt currently on NRB, pox 100%
--- NOTE | 2024-05-18 09:05 | CASEMGMT ---
Discharge Planning Updates sent to [place]. Delfina Martinez DC Planning Asst.
--- NOTE | 2024-05-18 09:30 | PCM.PN.HOSP ---
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 (05/14/24) Influenza due to other identified influenza virus with other respiratory manifestations (05/14/24) Objective Data Objective Data Vital Signs: Vital Signs Temp Pulse Resp BP Pulse Ox O2 Del Method O2 Flow Rate 97.5 F L 94 24 H 180/99 H 100 Non-Rebreather 4 05/18/24 04:49 05/18/24 05:43 05/18/24 04:49 05/18/24 04:49 05/18/24 04:49 05/18/24 07:33 05/17/24 22:00 FiO2 100 05/18/24 07:00 Oxygen Flow Rate (L/min) 4 Oxygen Delivery Method Non-Rebreather Weight: 138 lb 3.677 oz Body Mass Index (BMI) 21.6 Intake & Output: Intake and Output for Last 24 Hours 05/16/24 05/17/24 05/18/24 23:59 23:59 23:59 Intake Total 853.25 / 853.25 1295 / 1295 112 / 112 Output Total 300 / 300 Balance 853.25 / 853.25 995 / 995 112 / 112 Lab / Micro Data 05/15/24 06:41 05/15/24 06:41 Micro: Microbiology 05/14/24 07:35 Blood Culture (Wb) - Anticubital Left Blood Culture - Preliminary No growth in 48 hours. 05/14/24 07:04 Blood Culture (Wb) - Anticubital Left Blood Culture - Preliminary No growth in 48 hours. 05/14/24 15:00 Urine, Clean Catch Urine Culture - Final Culture exhibits no growth. 05/14/24 07:03 Mucosa - Nasopharyngeal SARS-CoV-2, Influenza & RSV (PCR) - Final Influenzae A Rhythm Strip Rhythm Strip: Sinus Tach Rate: 115 Ectopy: None Physical Exam Narrative Seen and examined in the morning. not present in the room. I again went to the patient room in afternoon about 3:30 PM but patient not present in the room. Patient is awake and alert. Patient is more short of breath and was put on the BiPAP in the morning. Wheezing. History of lung cancer. She is very weak and dyspnea on exertion. Chronically on oxygen Physical exam General: More drowsy and lethargic. HEENT: Atraumatic, PERRLA, EOMI, Normocephalic Oral: No Gingival or Mucosal Lesions/ Ulcerations Neck: Supple, No JVD, Negative Carotid Bruits Chest wall/Lungs: Air entry severely diminished in the left lung. Left large loculated pleural effusion. Transmitted sound from the throat/wheezing. Coarse crepitations Cardiovascular: Regular rate, Regular Rhythm, Normal S1, Normal S2, No M/G/R Abdomen: Bowel Sounds Present, Soft, Non Tender, Non-Distended : No dysuria. No renal angle tenderness. No suprapubic tenderness. Extremities: No edema, Capillary Refill Less than 3 Seconds Skin: No rashes, No breakdown Musculoskeletal: No Tenderness to Palpation of Joints or Extremities Neurological: Cranial nerves II-XII grossly intact, DTR 2+/4. No acute focal neurological deficit. Psych/Mental Status: Flat affect. 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 This is this is a second admission in the last 3 months, she was recently transferred from [facility] to [facility], on 03/27/2024 and was presently at [facility]. #Acute on chronic respiratory failure probably due to large left pleural effusion and influenza A: Patient usually on 2 L of oxygen. Currently on 4 L of oxygen. Respiratory rate 20/min. Patient was on BiPAP. Currently on nasal cannula. On Unasyn and azithromycin. Ultrasound-guided thoracocentesis ordered for symptomatic relief. Patient is DNR CC with no intubation Leukocytosis improving. Has elevated proBNP 05/16: INR was 2.6 today and vitamin K 2.5 mg IV ordered. Repeat INR is 1.8. Patient in the ultrasound for ultrasound-guided thoracocentesis. Fluid analysis labs ordered. There is suspicion of underlying pneumonia/aspiration pneumonia therefore patient on Unasyn and azithromycin. 05/17: After discussion with interventional radiologist, ultrasound-guided thoracocentesis was canceled because of multiple loculated left pleural effusion with largest pocket showing about 50 mL and high risk complications. Patient family especially wanted further prognosis and what needs to be done. In my opinion, her physical working Karnofsky performance is is poor and not candidate for chemotherapy or radiotherapy. Hospice consult is appropriate but patient's wants to hear from oncologist. Yesterday I called Dr. Pringle's phone but his number is changed. Then I called oncology SCREENER OPERATOR, Roya Jane and oncology consult requested. Today I talked to Dr. Pringle and he said he is just back to work and wanted Dr. Kelly for the consult. Patient on Unasyn and Tamiflu as antimicrobial agent. She had 3 doses of azithromycin therefore discontinued. Blood culture negative for 48 hours. Urine culture shows no growth 3: Mucomyst 10 elation ordered with DuoNeb as mucolytic agent. Mucinex DM also ordered. Discussed with the respiratory therapist and nursing staff regarding nebulization and chest physiotherapy. Was on BiPAP in the morning. Currently on high flow oxygen. not present in the room in the morning and the afternoon. Wanted to discuss about the decision after Dr. Kelly recommended Either hospice care or possible palliative systemic therapy in future in case she gets better after the flu infection . #Altered mentation -This could be in the setting of the ongoing respiratory failure, no CO2 narcosis on recent ABG -If no improvement with respiratory support can consider CT head, knowing family does not want anything interventional 3/4: It is intermittent probably metabolic encephalopathy from respiratory cause. 3: Patient is in normal baseline mentation. Acute encephalopathy most likely metabolic is resolved 05/18: Patient is more confused and lethargic. Probably metabolic encephalopathy. #Bilateral pleural effusion -Left large loculated pleural effusion please see above. #Paroxysmal A-fib -Continue Coumadin and metoprolol # Anemia of chronic disease -Continue to monitor hemoglobin H&H 10.6/35%. Platelet count 302,000. #DVT prophylaxis Warfarin on hold for for procedure tomorrow. INR 2.2. -On therapeutic anticoagulation with Coumadin 05/17: INR 1.8. As thoracocentesis canceled therefore warfarin resumed Left lung metastatic squamous cell carcinoma Chest abdomen CT scan on 05/12 reported multiple hypodense nodules including new 7.4 mm hypodense nodule in the peripheral lateral aspect of right lobe of liver and multiple throughout the right lobe of the liver suggestive of possible metastasis. Stable volume loss in left hemithorax with shift of mediastinal structures to the left side. Stable moderate size left pleural effusion with loculation and volume loss. Stable 8 mm spiculated nodule in right lung apex. Bony scan shows metastatic deposits to the proximal metaphysis of left humerus, T4 or T5 vertebrae. Brain MRI shows lesion in the anterior limb of corpuscle striate on/caudate head favors prior infarction. Metastatic lesion less likely. Patient is DNR CC. Microbiology Past 72 Hours 05/14/24 07:35 Blood Culture (Wb) - Anticubital Left Blood Culture - Preliminary No growth in 48 hours. 05/14/24 07:04 Blood Culture (Wb) - Anticubital Left Blood Culture - Preliminary No growth in 48 hours. 05/14/24 15:00 Urine, Clean Catch Urine Culture - Final Culture exhibits no growth. Laboratory Results 05/16/24 14:53: PT 21.4 H, INR 1.8, APTT 61.0 H Charges/Coding Addendum Addendum: Total time of the visit including total time spent in counseling or coordination of care, (more than 50% of the total time, spent in obtaining medical information from nurses and other ancillary care providers ,explaining to the patient about labs, imaging, diagnosis and management of active complex medical conditions), discussion with the oncologist, dependency case manager and nursing staff, review of labs and imaging is 35 minutes. Visit Charges Inpatient E&M: 55928 Subs Hosp L3
[2024-05-18] MEDS: Amiodarone 200 MG Tablet 100 MG PO (10:09)
[2024-05-18] MEDS: DULoxetine Hcl 30 MG Capsule PO (10:09)
[2024-05-18] MEDS: Allopurinol 100 MG Tablet PO (10:10)
[2024-05-18] MEDS: Metoprolol(XL)Succ 50 MG Tablet PO (10:10)
[2024-05-18] MEDS: Menthol/Lanolin/Calamine/Znox 113 GM Tube 1 APPLIC TOPICAL ×2 (10:10→22:01)
[2024-05-18] MEDS: Oseltamivir Phosphate 75 MG Capsule PO ×2 (10:10→22:00)
[2024-05-18] MEDS: Ipratropium/Albuterol Sulfate 3 ML AMPUL.NEB INHALATION ×2 (14:53→18:55)
[2024-05-18] MEDS: guaiFENesin/D-Methorphan TAB.SR.12H 2 TABLET PO ×2 (16:46→22:00)
[2024-05-18] MEDS: Warfarin (BKC) 3 MG Tablet PO (16:46)
[2024-05-18] MEDS: Acetylcysteine 800 MG/4 ML VIAL.NEB. INHALATION (18:55)
[2024-05-18] MEDS: Gabapentin 300 MG Capsule PO (22:00)
[2024-05-18] MEDS: oxyCODONE 5 MG Tablet PO (22:05)
[2024-05-18] MEDS: 0.9% Saline Lock 10 ML Syringe IV (23:32)
[2024-05-19] VITALS (13 sets, daily range): BP systolic 138–163; BP diastolic 72–89; PULSE 81–93; RESP 18–22; TEMP 36.2–36.8; O2SAT 86–97
[2024-05-19] MEDS: Ampicillin/Sulbactam 3 GM in 0.9% Normal Saline (100mL MB+) 100 ML IV ×2 (05:26→12:06)
[2024-05-19] MEDS: Acetylcysteine 800 MG/4 ML VIAL.NEB. INHALATION (07:11)
[2024-05-19] MEDS: Ipratropium/Albuterol Sulfate 3 ML AMPUL.NEB INHALATION ×3 (07:11→14:09)
[2024-05-19] MEDS: Amiodarone 200 MG Tablet 100 MG PO (08:48)
[2024-05-19] MEDS: DULoxetine Hcl 30 MG Capsule PO (08:49)
[2024-05-19] MEDS: guaiFENesin/D-Methorphan TAB.SR.12H 2 TABLET PO (08:49)
[2024-05-19] MEDS: Allopurinol 100 MG Tablet PO (08:49)
[2024-05-19] MEDS: Metoprolol(XL)Succ 50 MG Tablet PO (08:49)
[2024-05-19] MEDS: Oseltamivir Phosphate 75 MG Capsule PO (08:50)
[2024-05-19] MEDS: Menthol/Lanolin/Calamine/Znox 113 GM Tube 1 APPLIC TOPICAL (08:50)
[2024-05-19] MEDS: 0.9% Saline Lock 10 ML Syringe IV (08:50)
[2024-05-19 09:26] LABS: Absolute Lymphocyte Count 0.42 X10^3/uL (0.83-4.51); Absolute Neutrophil Count 8.8 X10^3/uL (2.0-7.7); Basophil# 0.04 X10^3/uL; Basophil% 0.4 % (0-1); Eosinophil# 0.03 X10^3/uL; Eosinophils% 0.3 % (0-5); Hematocrit 31.6 % (37-47); Hemoglobin 9.3 g/dL (12.0-15.0); Lymphocyte # 0.42 X10^3/ul (0.83-4.51); Mean Corp Hgb Conc 29.4 g/dL (32-36); Mean Corpuscular Hgb 30.6 pg (27.0-32.0); Mean Corpuscular Volume 103.9 fL (81-99); Mean Platelet Vol. 9.1 fl (6.2-12.0); Monocyte# 0.96 X10^3/uL; Monocyte% 9.1 % (0-10); NRBC Flagged by Analyzer 0 % (0-5); Neutrophil # 8.78 X10^3/uL (2.7-7.7); Neutrophil % 83.4 % (47-70); POSITIVE DIFFERENTIAL YES; POSITIVE MORPHOLOGY YES; Platelet Count 264 K/mm3 (150-450); RBC Distribution Width CV 17.2 % (11.6-14.6); RBC Distribution Width SD 65.3 fl (35.1-43.9); Red Blood Count 3.04 M/mm3 (4.2-5.4); White Blood Count 10.5 K/mm3 (4.4-11.0)
[2024-05-19 09:28] LABS: Differential Indicated SCAN CRITERIA MET
--- NOTE | 2024-05-19 09:30 | PCM.TXEXTCAR ---
Diet Diet Order/Speech Therapy: 05/16/24 16:52 Diet: Regular - General Food consistency:: Soft & Bite Sized Liquid Consistency:: [place]/Mildly Thick Type of Dietary Supplement:: Magic Cup Dessert Diet Comments: wu magic cup tid w/ meals DC O2, CPAP, BIPAP needs Home O2 Discharge instructions: Yes Type of respiratory needs?: Oxygen Oxygen frequency: Continuous Continuous oxygen liters per minute: 5 Wound(s) coccyx: Wound Type: Pressure Injury Problem/Diagnosis (1) Influenza A: Status: Acute Code(s): J10.1 - Influenza due to other identified influenza virus with other respiratory manifestations Plan 73-year-old female with a history of 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 This is this is a second admission in the last 3 months, she was recently transferred from [facility] to [facility], on 03/27/2024 and was presently at [facility]. #Acute on chronic respiratory failure probably due to large left pleural effusion and influenza A: Patient usually on 2 L of oxygen. Currently on 4 L of oxygen. Respiratory rate 20/min. Patient was on BiPAP. Currently on nasal cannula. On Unasyn and azithromycin. Ultrasound-guided thoracocentesis ordered for symptomatic relief. Patient is DNR CC with no intubation Leukocytosis improving. Has elevated proBNP /: INR was 2.6 today and vitamin K 2.5 mg IV ordered. Repeat INR is 1.8. Patient in the ultrasound for ultrasound-guided thoracocentesis. Fluid analysis labs ordered. There is suspicion of underlying pneumonia/aspiration pneumonia therefore patient on Unasyn and azithromycin. 05/17: After discussion with interventional radiologist, ultrasound-guided thoracocentesis was canceled because of multiple loculated left pleural effusion with largest pocket showing about 50 mL and high risk complications. Patient family especially wanted further prognosis and what needs to be done. In my opinion, her physical working Karnofsky performance is is poor and not candidate for chemotherapy or radiotherapy. Hospice consult is appropriate but patient's wants to hear from oncologist. Yesterday I called Dr. Pringle's phone but his number is changed. Then I called oncology SALES CLERK SUPERVISOR, Roya Jane and oncology consult requested. Today I talked to Dr. Pringle and he said he is just back to work and wanted Dr. Kelly for the consult. Patient on Unasyn and Tamiflu as antimicrobial agent. She had 3 doses of azithromycin therefore discontinued. Blood culture negative for 48 hours. Urine culture shows no growth 05/18: Mucomyst 10 elation ordered with DuoNeb as mucolytic agent. Mucinex DM also ordered. Discussed with the respiratory therapist and nursing staff regarding nebulization and chest physiotherapy. Was on BiPAP in the morning. Currently on high flow oxygen. not present in the room in the morning and the afternoon. Wanted to discuss about the decision after Dr. Kelly recommended Either hospice care or possible palliative systemic therapy in future in case she gets better after the flu infection . #Altered mentation -This could be in the setting of the ongoing respiratory failure, no CO2 narcosis on recent ABG -If no improvement with respiratory support can consider CT head, knowing family does not want anything interventional 3/: It is intermittent probably metabolic encephalopathy from respiratory cause. 05/17: Patient is in normal baseline mentation. Acute encephalopathy most likely metabolic is resolved 05/18: Patient is more confused and lethargic. Probably metabolic encephalopathy. #Bilateral pleural effusion -Left large loculated pleural effusion please see above. #Paroxysmal A-fib -Continue Coumadin and metoprolol # Anemia of chronic disease -Continue to monitor hemoglobin H&H 10.6/35%. Platelet count 302,000. #DVT prophylaxis Warfarin on hold for for procedure tomorrow. INR 2.2. -On therapeutic anticoagulation with Coumadin 05/17: INR 1.8. As thoracocentesis canceled therefore warfarin resumed Left lung metastatic squamous cell carcinoma Chest abdomen CT scan on 05/12 reported multiple hypodense nodules including new 7.4 mm hypodense nodule in the peripheral lateral aspect of right lobe of liver and multiple throughout the right lobe of the liver suggestive of possible metastasis. Stable volume loss in left hemithorax with shift of mediastinal structures to the left side. Stable moderate size left pleural effusion with loculation and volume loss. Stable 8 mm spiculated nodule in right lung apex. Bony scan shows metastatic deposits to the proximal metaphysis of left humerus, T4 or T5 vertebrae. Brain MRI shows lesion in the anterior limb of corpuscle striate on/caudate head favors prior infarction. Metastatic lesion less likely. Patient is DNR CC. Allergies/Procedures Done in Hospital Allergies No Known Allergies Allergy (Verified 04/24/24 13:04) Type of Care/Length of Stay Estimated LOS: More Than 30 Days Type of Care Needed: Intermediate Rehab Potential: Fair Prognosis: Fair Additional Orders/Day of Discharge Day of Discharge: 05/19/24 Dietary and Speech Recommendations Dietitian Recommendations/Changes: Continue regular diet per FLOOR CLERK recommendations and wu magic cup TID with meals. Will order nilam BID with breakfast and dinner. Will monitor weight. Discharge Plan Admission Admit Date/Time: 05/14/24 08:51 Primary Reason for Your Visit: Metastatic lung cancer. Influenza A Attending Provider: Jatin Dawson Primary Care Provider: Walter Emanuel Chi Consulting Providers: Kyra Torres; Ck Pringle; Dany Middleton; Sukumar Angulo; Kirk Kelly; Jefferson Alex; Leonel Zambrano; Lang Lomeli; Nicho Alexander; Roya Jane SALES CLERK SUPERVISOR Discharge Orders/Prescriptions Prescriptions: New acetylcysteine 200 mg/mL (20 %) Solution 800 mg inhalation Q4HWA.RT Qty: 0 0RF Rx Instructions: For 5 days and then as needed for mucus plugging/atelectasis. Along with DuoNeb benzonatate 100 mg Capsule 200 mg PO TID PRN PRN (Reason: Cough) Qty: 0 0RF ipratropium-albuterol 0.5 mg-3 mg(2.5 mg base)/3 mL Solution For Nebulization 3 ml inhalation Q4HWA.RT Qty: 0 0RF Rx Instructions: For 5 days and then as needed for shortness of dextromethorphan-guaifenesin 60-1,200 mg tablet extended release 12 hr 1 tab PO BID 7 Days Qty: 14 0RF oseltamivir 75 mg Capsule 75 mg PO BID Qty: 5 0RF Rx Instructions: Last dose, 05/21/2024, 10 PM amoxicillin-pot clavulanate 875-125 mg tablet 1 tab PO BID 2 Days Qty: 4 0RF Continued allopurinol 100 mg tablet 100 mg PO DAILY duloxetine 20 mg capsule,delayed release(DR/EC) 30 mg PO DAILY gabapentin 100 mg capsule 100 mg PO DAILY amiodarone 200 mg Tablet 100 mg PO BREAKFAST Qty: 0 0RF lidocaine-prilocaine 2.5-2.5 % Cream 5 g topical X1 PRN (Reason: PORT ACCESS) Qty: 0 0RF Protocol: *Topical Application Instructions APPLICATION INSTRUCTIONS: one time lidocaine 5 % Adhesive Patch,Medicated 2 patch topical DAILY Qty: 0 0RF Protocol: *Topical Application Instructions APPLICATION INSTRUCTIONS: topical daily menthol [Blue Gel] 2 % Gel 1 applic topical BID Qty: 0 0RF Sore Throat (benzocaine-menth) 15-3.6 mg Lozenge 1 zhao mucous membrane Q2H PRN PRN (Reason: Sore Throat) Qty: 0 0RF potassium chloride 20 mEq Tablet,Er Particles/Crystals 20 meq PO BIDCM Qty: 0 0RF mirtazapine 15 mg Tablet 7.5 mg PO QHS Qty: 0 0RF sennosides-docusate sodium [Stimulant Laxative Plus] 8.6-50 mg Tablet 2 tab PO BID PRN PRN (Reason: Constipation) Qty: 0 0RF valacyclovir 1 gram tablet 1,000 mg PO TID metoprolol succinate 25 mg Tablet Extended Release 24 Hr 50 mg PO DAILY gabapentin 300 mg capsule 300 mg PO QHS warfarin 4 mg tablet 4 mg PO .MWF warfarin [Jantoven] 3 mg Tablet 3 mg PO .TTHSASU oxycodone 5 mg Tablet 5 mg PO Q4H PRN PRN (Reason: Pain Score 6-10 Or Pre Pt/Ot) 3 Days Qty: 7 0RF Changed acetaminophen 500 mg Tablet 1,000 mg PO Q8H PRN PRN (Reason: Pain Score 1-5) 30 Days Qty: 0 0RF Discontinued cephalexin 250 mg capsule 250 mg PO DAILY Milltrium Senior Tablet 1 tab PO DAILY Referrals / Follow Up: Walter Emanuel Chi, MD [Primary Care Provider] - Disposition Disposition (needs filled in before D/C Order can be placed): NonSkilled NH/Intermed Care
--- NOTE | 2024-05-19 09:37 | PN.HOSP_ITS ---
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 (05/14/24) Influenza due to other identified influenza virus with other respiratory manifestations (05/14/24) Objective Data Objective Data Vital Signs: Vital Signs Temp Pulse Resp BP Pulse Ox O2 Del Method O2 Flow Rate 97.5 F L 90 22 H 163/89 H 93 High Flow 5 05/19/24 08:39 05/19/24 08:49 05/19/24 08:39 05/19/24 08:39 05/19/24 08:54 05/19/24 08:54 05/19/24 08:54 FiO2 100 05/18/24 07:00 Oxygen Flow Rate (L/min) 5 Oxygen Delivery Method High Flow Weight: 138 lb 3.677 oz Body Mass Index (BMI) 21.6 Intake & Output: Intake and Output for Last 24 Hours 05/17/24 05/18/24 05/19/24 23:59 23:59 23:59 Intake Total 1295 / 1295 456 / 456 224 / 224 Output Total 300 / 300 150 / 150 300 / 300 Balance 995 / 995 306 / 306 -76 / -76 Lab / Micro Data 05/19/24 09:20 05/19/24 09:20 Labs: Laboratory Results - last 24 hr 05/19/24 09:20: WBC 10.5, RBC 3.04 L, Hgb 9.3 L, Hct 31.6 L, MCV 103.9 H, MCH 30.6, MCHC 29.4 L, RDW Std Deviation 65.3 H, RDW Coeff of Blanca 17.2 H, Plt Count 264, MPV 9.1, Immature Gran % (Auto) 2.800 H, Neut % (Auto) 83.4 H, Lymph % (Auto) 4.0 L, Lawrence % (Auto) 9.1, Eos % (Auto) 0.3, Baso % (Auto) 0.4, Absolute Neuts (auto) 8.8 H, Absolute Lymphs (auto) 0.42 L, Nucleated RBC % 0 Micro: Microbiology 05/14/24 07:35 Blood Culture (Wb) - Anticubital Left Blood Culture - Final No growth in 5 days. 05/14/24 07:04 Blood Culture (Wb) - Anticubital Left Blood Culture - Final No growth in 5 days. 05/14/24 15:00 Urine, Clean Catch Urine Culture - Final Culture exhibits no growth. 05/14/24 07:03 Mucosa - Nasopharyngeal SARS-CoV-2, Influenza & RSV (PCR) - Final Influenzae A Rhythm Strip Rhythm Strip: Sinus Tach Rate: 115 Ectopy: None Physical Exam Narrative Seen and examined in the morning. not present in the room. I again went to the patient room in afternoon about 3:30 PM but patient not present in the room. Patient is awake and alert. Patient is more short of breath and was put on the BiPAP in the morning. Wheezing. History of lung cancer. She is very weak and dyspnea on exertion. Chronically on oxygen Physical exam General: More drowsy and lethargic. HEENT: Atraumatic, PERRLA, EOMI, Normocephalic Oral: No Gingival or Mucosal Lesions/ Ulcerations Neck: Supple, No JVD, Negative Carotid Bruits Chest wall/Lungs: Air entry severely diminished in the left lung. Left large loculated pleural effusion. Transmitted sound from the throat/wheezing. Coarse crepitations Cardiovascular: Regular rate, Regular Rhythm, Normal S1, Normal S2, No M/G/R Abdomen: Bowel Sounds Present, Soft, Non Tender, Non-Distended : No dysuria. No renal angle tenderness. No suprapubic tenderness. Extremities: No edema, Capillary Refill Less than 3 Seconds Skin: No rashes, No breakdown Musculoskeletal: No Tenderness to Palpation of Joints or Extremities Neurological: Cranial nerves II-XII grossly intact, DTR 2+/4. No acute focal neurological deficit. Psych/Mental Status: Flat affect. 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 This is this is a second admission in the last 3 months, she was recently transferred from [facility] to [facility], on 03/27/2024 and was presently at [facility]. #Acute on chronic respiratory failure probably due to large left pleural effusion and influenza A: Patient usually on 2 L of oxygen. Currently on 4 L of oxygen. Respiratory rate 20/min. Patient was on BiPAP. Currently on nasal cannula. On Unasyn and azithromycin. Ultrasound-guided thoracocentesis ordered for symptomatic relief. Patient is DNR CC with no intubation Leukocytosis improving. Has elevated proBNP 05/16: INR was 2.6 today and vitamin K 2.5 mg IV ordered. Repeat INR is 1.8. Patient in the ultrasound for ultrasound-guided thoracocentesis. Fluid analysis labs ordered. There is suspicion of underlying pneumonia/aspiration pneumonia therefore patient on Unasyn and azithromycin. 05/17: After discussion with interventional radiologist, ultrasound-guided thoracocentesis was canceled because of multiple loculated left pleural effusion with largest pocket showing about 50 mL and high risk complications. Patient family especially wanted further prognosis and what needs to be done. In my opinion, her physical working Karnofsky performance is is poor and not candidate for chemotherapy or radiotherapy. Hospice consult is appropriate but patient's wants to hear from oncologist. Yesterday I called Dr. Pringle's phone but his number is changed. Then I called oncology BATTING MACHINE OPERATOR, Roya Jane and oncology consult requested. Today I talked to Dr. Pringle and he said he is just back to work and wanted Dr. Kelly for the consult. Patient on Unasyn and Tamiflu as antimicrobial agent. She had 3 doses of azithromycin therefore discontinued. Blood culture negative for 48 hours. Urine culture shows no growth 05/18: Mucomyst 10 elation ordered with DuoNeb as mucolytic agent. Mucinex DM also ordered. Discussed with the respiratory therapist and nursing staff regarding nebulization and chest physiotherapy. Was on BiPAP in the morning. Currently on high flow oxygen. not present in the room in the morning and the afternoon. Wanted to discuss about the decision after Dr. Kelly recommended Either hospice care or possible palliative systemic therapy in future in case she gets better after the flu infection . #Altered mentation -This could be in the setting of the ongoing respiratory failure, no CO2 narcosis on recent ABG -If no improvement with respiratory support can consider CT head, knowing family does not want anything interventional 3: It is intermittent probably metabolic encephalopathy from respiratory cause. 05/17: Patient is in normal baseline mentation. Acute encephalopathy most likely metabolic is resolved 05/18: Patient is more confused and lethargic. Probably metabolic encephalopathy. #Bilateral pleural effusion -Left large loculated pleural effusion please see above. #Paroxysmal A-fib -Continue Coumadin and metoprolol # Anemia of chronic disease -Continue to monitor hemoglobin H&H 10.6/35%. Platelet count 302,000. #DVT prophylaxis Warfarin on hold for for procedure tomorrow. INR 2.2. -On therapeutic anticoagulation with Coumadin 05/17: INR 1.8. As thoracocentesis canceled therefore warfarin resumed Left lung metastatic squamous cell carcinoma Chest abdomen CT scan on 05/12 reported multiple hypodense nodules including new 7.4 mm hypodense nodule in the peripheral lateral aspect of right lobe of liver and multiple throughout the right lobe of the liver suggestive of possible metastasis. Stable volume loss in left hemithorax with shift of mediastinal structures to the left side. Stable moderate size left pleural effusion with loculation and volume loss. Stable 8 mm spiculated nodule in right lung apex. Bony scan shows metastatic deposits to the proximal metaphysis of left humerus, T4 or T5 vertebrae. Brain MRI shows lesion in the anterior limb of corpuscle striate on/caudate head favors prior infarction. Metastatic lesion less likely. Patient is DNR CC. Microbiology Past 72 Hours 05/14/24 07:35 Blood Culture (Wb) - Anticubital Left Blood Culture - Final No growth in 5 days. 05/14/24 07:04 Blood Culture (Wb) - Anticubital Left Blood Culture - Final No growth in 5 days. 05/14/24 15:00 Urine, Clean Catch Urine Culture - Final Culture exhibits no growth. Laboratory Results 05/19/24 09:20: WBC 10.5, RBC 3.04 L, Hgb 9.3 L, Hct 31.6 L, MCV 103.9 H, MCH 30.6, MCHC 29.4 L, RDW Std Deviation 65.3 H, RDW Coeff of Blanca 17.2 H, Plt Count 264, MPV 9.1, Immature Gran % (Auto) 2.800 H, Neut % (Auto) 83.4 H, Lymph % (Auto) 4.0 L, Lawrence % (Auto) 9.1, Eos % (Auto) 0.3, Baso % (Auto) 0.4, Absolute Neuts (auto) 8.8 H, Absolute Lymphs (auto) 0.42 L, Nucleated RBC % 0, Differential Comment SCANNED, PT Pending, INR Pending, Sodium 143, Potassium 4.2, Chloride 101, Carbon Dioxide 28.2, Anion Gap 14, BUN 10, Creatinine 0.57 L, Estim Creat Clear Calc 60.00, Est GFR (MDRD) Non-Af 95, BUN/Creatinine Ratio 18.3, Glucose 112 H, Calcium 9.0, Total Bilirubin 0.25, AST 23, ALT 14, Alkaline Phosphatase 97, Total Protein 6.5, Albumin 3.2 L, Globulin 3.3, Albumin/Globulin Ratio 1.0
[2024-05-19 10:34] LABS: Differential Comment SCANNED
[2024-05-19 10:35] LABS: AST(SGOT) 23 U/L (<=31); Alanine Aminotransfer ALT/SGPT 14 U/L (<=34); Albumin, Serum 3.2 g/dL (3.4-4.8); Alkaline Phosphatase 97 U/L (35-104); Anion Gap 14 (5-15); BUN 10 mg/dL (4-19); BUN/Creat Ratio 18.3 RATIO (10-20); Carbon Dioxide 28.2 mmol/L (21.0-32.0); Chloride 101 mmol/L (98-108); Creatinine, Serum 0.57 mg/dL (0.70-1.20); EST Glomerular Filtration Rate 95 (>60); Globulin 3.3 g/dL (2.2-4.2); Glucose 112 mg/dL (70-99); Potassium 4.2 mmol/L (3.3-5.1); Protein, Total 6.5 g/dL (5.9-8.4); Sodium Level 143 mmol/L (133-145); Total Bilirubin 0.25 mg/dL (0.00-1.30)
[2024-05-19 11:03] LABS: International Normalized Ratio 1.5; Prothrombin Time (Protime)PT. 18.5 SECONDS (11.7-14.9)
--- NOTE | 2024-05-19 11:12 | PCM.DC.SUM ---
Providers Date of Admission: 05/14/24 Date of Discharge: 05/19/24 Primary Care Physician: Dr. Walter Emanuel MD Consultations 05/16/24 17:52 Consult: Oncology/Hematology Routine Consulting Provider: Ck Pringle Reason for Consult: Treatment plan/pt has an appointment 05/17 at 1100 EMERGENT Consult: No Notified: Yes Date Notified: 05/17/24 Time Notified: 08:25 Method of Notification: office 05/17/24 15:02 Consult: Oncology/Hematology Routine [facility] Reason for Consult: Small lung cancer EMERGENT Consult: No Notified: Yes Date Notified: 05/17/24 Time Notified: 15:03 Method of Notification: Verbal Reason For Visit: sob Diagnosis Discharge Diagnosis (1) Influenza A: Status: Acute Code(s): J10.1 - Influenza due to other identified influenza virus with other respiratory manifestations Plan 73-year-old female with a history of 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 This is this is a second admission in the last 3 months, she was recently transferred from [facility] to [facility], on 03/27/2024 and was presently at [facility]. #Acute on chronic respiratory failure probably due to large left pleural effusion and influenza A: Patient usually on 2 L of oxygen. Currently on 4 L of oxygen. Respiratory rate 20/min. Patient was on BiPAP. Currently on nasal cannula. On Unasyn and azithromycin. Ultrasound-guided thoracocentesis ordered for symptomatic relief. Patient is DNR CC with no intubation Leukocytosis improving. Has elevated proBNP /: INR was 2.6 today and vitamin K 2.5 mg IV ordered. Repeat INR is 1.8. Patient in the ultrasound for ultrasound-guided thoracocentesis. Fluid analysis labs ordered. There is suspicion of underlying pneumonia/aspiration pneumonia therefore patient on Unasyn and azithromycin. 05/17: After discussion with interventional radiologist, ultrasound-guided thoracocentesis was canceled because of multiple loculated left pleural effusion with largest pocket showing about 50 mL and high risk complications. Patient family especially wanted further prognosis and what needs to be done. In my opinion, her physical working Karnofsky performance is is poor and not candidate for chemotherapy or radiotherapy. Hospice consult is appropriate but patient's wants to hear from oncologist. Yesterday I called Dr. Pringle's phone but his number is changed. Then I called oncology [employer]ATOR, Roya Jane and oncology consult requested. Today I talked to Dr. Pringle and he said he is just back to work and wanted Dr. Kelly for the consult. Patient on Unasyn and Tamiflu as antimicrobial agent. She had 3 doses of azithromycin therefore discontinued. Blood culture negative for 48 hours. Urine culture shows no growth 05/18: Mucomyst 10 elation ordered with DuoNeb as mucolytic agent. Mucinex DM also ordered. Discussed with the respiratory therapist and nursing staff regarding nebulization and chest physiotherapy. Was on BiPAP in the morning. Currently on high flow oxygen. not present in the room in the morning and the afternoon. Wanted to discuss about the decision after Dr. Kelly recommended Either hospice care or possible palliative systemic therapy in future in case she gets better after the flu infection 05/19: Patient respiratory status much better. On 5 L of oxygen but she is not labored breathing or wheezing. She wants to go today to [facility]. Her said that she could not recognize him because of shortness of breath. Patient is discharged on DuoNeb nebulization along with Mucomyst inhalation, Augmentin and Tamiflu to complete the course/ . #Altered mentation -This could be in the setting of the ongoing respiratory failure, no CO2 narcosis on recent ABG -If no improvement with respiratory support can consider CT head, knowing family does not want anything interventional 3/: It is intermittent probably metabolic encephalopathy from respiratory cause. 05/17: Patient is in normal baseline mentation. Acute encephalopathy most likely metabolic is resolved 3: Patient is more confused and lethargic. Probably metabolic encephalopathy. 05/19: Patient is on normal mentation. Acute encephalopathy mainly due to hypoxia/metabolic resolved #Bilateral pleural effusion -Left large loculated pleural effusion please see above. #Paroxysmal A-fib -Continue Coumadin and metoprolol # Anemia of chronic disease -Continue to monitor hemoglobin H&H 10.6/35%. Platelet count 302,000. #DVT prophylaxis Warfarin on hold for for procedure tomorrow. INR 2.2. -On therapeutic anticoagulation with Coumadin 05/17: INR 1.8. As thoracocentesis canceled therefore warfarin resumed Left lung metastatic squamous cell carcinoma Chest abdomen CT scan on 05/12 reported multiple hypodense nodules including new 7.4 mm hypodense nodule in the peripheral lateral aspect of right lobe of liver and multiple throughout the right lobe of the liver suggestive of possible metastasis. Stable volume loss in left hemithorax with shift of mediastinal structures to the left side. Stable moderate size left pleural effusion with loculation and volume loss. Stable 8 mm spiculated nodule in right lung apex. Bony scan shows metastatic deposits to the proximal metaphysis of left humerus, T4 or T5 vertebrae. Brain MRI shows lesion in the anterior limb of corpuscle striate on/caudate head favors prior infarction. Metastatic lesion less likely. 05/19: Discussed with the patient in detail in presence of shelter case manager and patient's RN, Mackenzie. He opted for going back to care home and follow-up with oncology office Dr. Pringle. At this point of time he does not want hospice care. Patient is DNR CC. Detailed discussion about advanced directive and palliative care was done. the patient's is a power of commonwealth attorney for health. Patient underwent elective DNR CC and does not want aggressive workup but more symptomatic treatment. They did not elect hospice care either. The patient doesn't want artificial life support including intubation, tube feed, ventilator and/chest compression, central venous catheter, vasopressor and DC shock if needed Discharge medication reconciliation done. Discharge follow-up instructions completed. Discharge process discussed with the patient and all questions were answered to patient's satisfaction. Follow with PCP in 1 to 2 weeks Total time spent, exact 35 minutes on discharge meds reconciliation, examination, coordination of care with nurses and ancillary staff, review of imaging and blood test and discussion with the patient on follow-up instructions. Medications at Discharge Home Medications allopurinol 100 mg tablet 100 mg PO DAILY Cardiac 02/08/23 gabapentin 100 mg capsule 100 mg PO DAILY Artheritis Pain 06/16/23 duloxetine 20 mg capsule,delayed release 30 mg PO DAILY depression 11/11/23 sennosides 8.6 mg-docusate sodium 50 mg tablet (Stimulant Laxative Plus) 2 tab PO BID PRN PRN Constipation #0 tabs 03/27/24 amiodarone 200 mg tablet 100 mg (1/2 x 200 mg) PO BREAKFAST #0 tabs 04/28/24 benzocaine 15 mg-menthol 3.6 mg lozenges (Sore Throat (benzocaine with menthol)) 1 zhao mucous membrane Q2H PRN PRN Sore Throat #0 ea 04/28/24 lidocaine 5 % topical patch 2 patch topical DAILY #0 ea 04/28/24 lidocaine-prilocaine 2.5 %-2.5 % topical cream 5 g topical X1 PRN PORT ACCESS #0 grams 04/28/24 menthol 2 % topical gel (Blue Gel) 1 applic topical BID #0 grams 04/28/24 mirtazapine 15 mg tablet 7.5 mg (1/2 x 15 mg) PO QHS #0 tabs 04/28/24 potassium chloride 20 mEq tablet,extended release(part/cryst) 20 meq PO BIDCM #0 tabs 04/28/24 gabapentin 300 mg capsule 300 mg PO QHS Arthritic Pain 05/14/24 metoprolol succinate 25 mg tablet,extended release 24 hr 50 mg PO DAILY 05/14/24 valacyclovir 1 gram tablet 1,000 mg PO TID 05/14/24 warfarin 3 mg tablet (Jantoven) 3 mg PO .TTHSASU Blood Thinner 05/14/24 warfarin 4 mg tablet 4 mg PO .MWF Blood Thinner 05/14/24 acetaminophen 500 mg tablet 1,000 mg (2 x 500 mg) PO Q8H PRN PRN Pain Score 1-5 30 days #0 tabs 05/19/24 acetylcysteine 200 mg/mL (20 %) solution 800 mg (4 mL) inhalation Q4HWA.RT #0 mL 05/19/24 amoxicillin 875 mg-potassium clavulanate 125 mg tablet 1 tab PO BID 2 days #4 tabs 05/19/24 benzonatate 100 mg capsule 200 mg (2 x 100 mg) PO TID PRN PRN Cough #0 caps 05/19/24 dextromethorphan-guaifenesin ER 60 mg-1,200 mg tab,extend release,12hr 1 tab PO BID 7 days #14 tabs 05/19/24 ipratropium 0.5 mg-albuterol 3 mg (2.5 mg base)/3 mL nebulization soln 3 ml inhalation Q4HWA.RT #0 mL 05/19/24 oseltamivir 75 mg capsule 75 mg PO BID #5 caps 05/19/24 oxycodone 5 mg tablet 5 mg PO Q4H PRN PRN Pain Score 6-10 Or Pre Pt/Ot 3 days #7 tabs 05/19/24 Physical Exam Narrative Seen and examined in the morning. Discussed with the and present of shelter case manager, Mackenzie and patient's RN, Mackenzie Patient shortness of breath is much better than yesterday. On 5 L of oxygen through nasal cannula. She can talk. No audible wheezing. Physical exam General: Awake alert and oriented x 3. HEENT: Atraumatic, PERRLA, EOMI, Normocephalic Oral: No Gingival or Mucosal Lesions/ Ulcerations Neck: Supple, No JVD, Negative Carotid Bruits Chest wall/Lungs: Air entry severely diminished in the left lung. Left large loculated pleural effusion. Transmitted sound from the throat/wheezing. Coarse crepitations Cardiovascular: Regular rate, Regular Rhythm, Normal S1, Normal S2, No M/G/R Abdomen: Bowel Sounds Present, Soft, Non Tender, Non-Distended : No dysuria. No renal angle tenderness. No suprapubic tenderness. Extremities: No edema, Capillary Refill Less than 3 Seconds Skin: No rashes, No breakdown Musculoskeletal: No Tenderness to Palpation of Joints or Extremities Neurological: Cranial nerves II-XII grossly intact, DTR 2+/4. No acute focal neurological deficit. Psych/Mental Status: Flat affect. Weight / BMI Weight Weight: 138 lb 3.677 oz Body Mass Index (BMI) 21.6 ABG / Lab / Microbiology Data 05/19/24 09:20 05/19/24 09:20 Laboratory: Laboratory Results - last 24 hr 05/19/24 09:20: WBC 10.5, RBC 3.04 L, Hgb 9.3 L, Hct 31.6 L, MCV 103.9 H, MCH 30.6, MCHC 29.4 L, RDW Std Deviation 65.3 H, RDW Coeff of Blanca 17.2 H, Plt Count 264, MPV 9.1, Immature Gran % (Auto) 2.800 H, Neut % (Auto) 83.4 H, Lymph % (Auto) 4.0 L, [place] % (Auto) 9.1, Eos % (Auto) 0.3, Baso % (Auto) 0.4, Absolute Neuts (auto) 8.8 H, Absolute Lymphs (auto) 0.42 L, Nucleated RBC % 0, Differential Comment SCANNED, PT 18.5 H, INR 1.5, Sodium 143, Potassium 4.2, Chloride 101, Carbon Dioxide 28.2, Anion Gap 14, BUN 10, Creatinine 0.57 L, Estim Creat Clear Calc 60.00, Est GFR (MDRD) Non-Af 95, BUN/Creatinine Ratio 18.3, Glucose 112 H, Calcium 9.0, Total Bilirubin 0.25, AST 23, ALT 14, Alkaline Phosphatase 97, Total Protein 6.5, Albumin 3.2 L, Globulin 3.3, Albumin/Globulin Ratio 1.0 Microbiology: Microbiology 05/14/24 07:35 Blood Culture (Wb) - Anticubital Left Blood Culture - Final No growth in 5 days. 05/14/24 07:04 Blood Culture (Wb) - Anticubital Left Blood Culture - Final No growth in 5 days. 05/14/24 15:00 Urine, Clean Catch Urine Culture - Final Culture exhibits no growth. 05/14/24 07:03 Mucosa - Nasopharyngeal SARS-CoV-2, Influenza & RSV (PCR) - Final Influenzae A D/C Instructions DC O2, CPAP, BIPAP Needs PSN CPAP & BiPAP: BiPAP & CPAP Settings per PSN Mode BiPAP 05/15/24 23:22 Bipap Delivery Device Face Mask 05/15/24 23:22 BiPAP Inspiratory Pressure 13 05/15/24 23:22 BiPAP Expiratory Pressure 9 05/15/24 23:22 BiPAP Rate 12 05/15/24 23:22 Fraction of Inspired Oxygen ( 100 05/18/24 07:00 FIO2) Home O2 Discharge instructions: Yes Type of respiratory needs?: Oxygen Oxygen frequency: Continuous Continuous oxygen liters per minute: 5 DC home with Oxygen: Yes Home O2 MD Review: I have reviewed the oxygen testing, and the patient qualifies for home oxygen equipment and portability. The patient is mobile in the home and the community. Meaningful Use Info Meaningful Use Meaningful Use Diagnoses (Choose all that apply): None applicable Ischemic Stroke Statin Dosing Therapy Reference: STATIN DOSE THERAPY REFERENCE: * Patients > 75 years receive moderate or high dose statin therapy. * Patients 75 years or YOUNGER should receive HIGH intensity statin dose unless contraindicated. You will be required to document reason for non-treatment if statin daily dose does not meet guidelines. HIGH DOSE STATIN THERAPY DAILY Atorvastatin > than or = to 40 mg Rosuvastatin > than or = to 20 mg Amlodipine + Atorvastatin > than or = to 2.5/40 mg Ezetimibe + Simvastatin 10/80 mg Simvastatin 80mg Discharge Plan Admission Admit Date/Time: 05/14/24 08:51 Primary Reason for Your Visit: Metastatic lung cancer. Influenza A Attending Provider: Jatin Dawson Primary Care Provider: Walter Emanuel Chi Consulting Providers: Kyra Torres; Ck Pringle; Dany Middleton; Sukumar Angulo; Kirk Kelly; Jefferson Alex; Leonel Zambrano; Lang Lomeli; Nicho Alexander; Roya Jane [employer] O[employer]ATOR Discharge Orders/Prescriptions Prescriptions: New acetylcysteine 200 mg/mL (20 %) Solution 800 mg inhalation Q4HWA.RT Qty: 0 0RF Rx Instructions: For 5 days and then as needed for mucus plugging/atelectasis. Along with DuoNeb benzonatate 100 mg Capsule 200 mg PO TID PRN PRN (Reason: Cough) Qty: 0 0RF ipratropium-albuterol 0.5 mg-3 mg(2.5 mg base)/3 mL Solution For Nebulization 3 ml inhalation Q4HWA.RT Qty: 0 0RF Rx Instructions: For 5 days and then as needed for shortness of dextromethorphan-guaifenesin 60-1,200 mg tablet extended release 12 hr 1 tab PO BID 7 Days Qty: 14 0RF oseltamivir 75 mg Capsule 75 mg PO BID Qty: 5 0RF Rx Instructions: Last dose, 05/21/2024, 10 PM amoxicillin-pot clavulanate 875-125 mg tablet 1 tab PO BID 2 Days Qty: 4 0RF Continued allopurinol 100 mg tablet 100 mg PO DAILY duloxetine 20 mg capsule,delayed release(DR/EC) 30 mg PO DAILY gabapentin 100 mg capsule 100 mg PO DAILY amiodarone 200 mg Tablet 100 mg PO BREAKFAST Qty: 0 0RF lidocaine-prilocaine 2.5-2.5 % Cream 5 g topical X1 PRN (Reason: PORT ACCESS) Qty: 0 0RF Protocol: *Topical Application Instructions APPLICATION INSTRUCTIONS: one time lidocaine 5 % Adhesive Patch,Medicated 2 patch topical DAILY Qty: 0 0RF Protocol: *Topical Application Instructions APPLICATION INSTRUCTIONS: topical daily menthol [Blue Gel] 2 % Gel 1 applic topical BID Qty: 0 0RF Sore Throat (benzocaine-menth) 15-3.6 mg Lozenge 1 zhao mucous membrane Q2H PRN PRN (Reason: Sore Throat) Qty: 0 0RF potassium chloride 20 mEq Tablet,Er Particles/Crystals 20 meq PO BIDCM Qty: 0 0RF mirtazapine 15 mg Tablet 7.5 mg PO QHS Qty: 0 0RF sennosides-docusate sodium [Stimulant Laxative Plus] 8.6-50 mg Tablet 2 tab PO BID PRN PRN (Reason: Constipation) Qty: 0 0RF valacyclovir 1 gram tablet 1,000 mg PO TID metoprolol succinate 25 mg Tablet Extended Release 24 Hr 50 mg PO DAILY gabapentin 300 mg capsule 300 mg PO QHS warfarin 4 mg tablet 4 mg PO .MWF warfarin [Jantoven] 3 mg Tablet 3 mg PO .TTHSASU oxycodone 5 mg Tablet 5 mg PO Q4H PRN PRN (Reason: Pain Score 6-10 Or Pre Pt/Ot) 3 Days Qty: 7 0RF Changed acetaminophen 500 mg Tablet 1,000 mg PO Q8H PRN PRN (Reason: Pain Score 1-5) 30 Days Qty: 0 0RF Discontinued cephalexin 250 mg capsule 250 mg PO DAILY Milltrium Senior Tablet 1 tab PO DAILY Referrals / Follow Up: Walter Emanuel Chi, MD [Primary Care Provider] - Disposition Disposition (needs filled in before D/C Order can be placed): NonSkilled NH/Intermed Care Charges/Coding Visit Charges Inpatient E&M: 92996 Disch Hosp >30min
--- NOTE | 2024-05-19 11:33 | CASEMGMT ---
Discharge Planning Discharge orders, signed med list, and transport time sent to [facility] will transport pt by wheelchair at 2p. Nursing, SW, pt, and her updated. Delfina Martinez DC Planning Asst.
[2024-05-19] MEDS: 0.9% Normal Saline (100mL Bag) 100 ML 15 ML IV (12:08)
--- NOTE | 2024-05-19 13:54 | NURSING ---
Attempted to call report to [facility], nurse did not answer phone when transferred.
--- NOTE | 2024-05-19 15:07 | CASEMGMT ---
[facility] here to picker feeder patient. Wheelchair Van had been set up for pt, [facility] staff feel pt is more suited to transport by cot. Correct form completed and given to [facility]. Santana James
--- NOTE | 2024-05-19 15:15 | NURSING ---
Patient leaving with [facility] for transport back to [facility]. This RN attempted to call report to nurse who will be getting the patient back. No answer by nursing unit.
== END 2024-05-19 15:22 | disposition intermediate care facility (04) | DRG 189 ==
LOC: ED 08:04 → PCU 08:56
PROVIDERS: Internal Medicine; Admitting Provider Internal Medicine; Emergency Provider Emergency Medicine; PCP Family Medicine Geriatric Medicine; Visit Provider Internal Medicine
DX: J96.21 Acute and chronic respiratory failure with hypoxia (principal); J69.0 Pneumonitis due to inhalation of food and vomit; G93.41 Metabolic encephalopathy; J10.00 Influenza due to other identified influenza virus with unspecified type of pneumonia; C77.1 Secondary and unspecified malignant neoplasm of intrathoracic lymph nodes; C78.1 Secondary malignant neoplasm of mediastinum; C78.7 Secondary malignant neoplasm of liver and intrahepatic bile duct; C79.51 Secondary malignant neoplasm of bone; C34.92 Malignant neoplasm of unspecified part of left bronchus or lung; J90 Pleural effusion, not elsewhere classified; D63.8 Anemia in other chronic diseases classified elsewhere; I10 Essential (primary) hypertension; I48.0 Paroxysmal atrial fibrillation; E78.5 Hyperlipidemia, unspecified; Z66 Do not resuscitate; R53.81 Other malaise; Z79.01 Long term (current) use of anticoagulants; Z79.890 Hormone replacement therapy; Z79.891 Long term (current) use of opiate analgesic; Z79.899 Other long term (current) drug therapy; Z87.891 Personal history of nicotine dependence; Z99.81 Dependence on supplemental oxygen; Z92.21 Personal history of antineoplastic chemotherapy
CPT/HCPCS: 36415; 36600; 71045; 71260; 74160; 80053; 81001; 82248; 82803; 83605; 83615; 83735; 83880; 84100; 84155; 84443; 84484; 85025; 85610; 85730; 87040; 87086; 87631; 92526; 92610; 93005; 94002; 94003; 94640; 94762; 97110; 97116; 97162; 97530; 97802; 97803; 99285; Q9967; A4216; J0295; J1940